=== PATIENT | male | born 1950 | race Caucasian/White ===

== ENCOUNTER 2018-03-21 02:49 | Inpatient (IN) | payer MEDICARE ==
[~2018-03-21] VITALS: Ht 185.4 cm; Wt 138.4 kg
[2018-03-21] MEDS ORDERED: HYDR453.3 TP (03:11)
[2018-03-21] MEDS ORDERED: MICO45CR3 TP (03:11)
[2018-03-21] MEDS ORDERED: DIVA-53 PO (03:11)
[2018-03-21] MEDS ORDERED: LACT10SO PO (03:11)
[2018-03-21] MEDS ORDERED: ASPI-630 PO (03:11)
[2018-03-21] MEDS ORDERED: MAGN400T3 PO (03:11)
[2018-03-21] MEDS ORDERED: ESCITALOPRAM OX20 MG PO (03:11)
[2018-03-21] MEDS ORDERED: TRAZ-85 PO ×3 (03:11→03:26)
[2018-03-21] MEDS ORDERED: TEST200V3 IM (03:11)
[2018-03-21] MEDS ORDERED: ASCO500T3 PO (03:11)
[2018-03-21] MEDS ORDERED: FERR325T14 PO (03:11)
[2018-03-21] MEDS ORDERED: MULT1TAB52 PO (03:11)
[2018-03-21] MEDS ORDERED: FLUT16SP21 NS (03:11)
[2018-03-21] MEDS ORDERED: DOCU100C28 PO (03:11)
[2018-03-21] MEDS ORDERED: IBUP400T18 PO (03:11)
[2018-03-21] MEDS ORDERED: LINA145C PO (03:26)
[2018-03-21] MEDS ORDERED: INUL1TAB4 PO (03:26)
[2018-03-21] MEDS ORDERED: CARB1TAB2 PO ×2 (03:26)
[2018-03-21] MEDS ORDERED: CARB1TAB44 PO (03:26)
[2018-03-21] MEDS ORDERED: TEST100V2 IM (03:26)
[2018-03-21] MEDS ORDERED: PRAM0.255 PO (03:26)
[2018-03-21] MEDS ORDERED: DIAZ2TAB3 PO (03:26)
[2018-03-21] MEDS ORDERED: PRAV40TA2 PO (03:26)
[2018-03-21] MEDS ORDERED: CEPH-264 PO (03:26)
[2018-03-21 03:45] VITALS: BP 149/93
[2018-03-21 04:00] VITALS: BP 149/93
[2018-03-21] MEDS ORDERED: MAGNESIUM HYDROXIDE 2,400 MG/30 ML ORAL.SUSP. PO PRN (04:15)
[2018-03-21] MEDS ORDERED: DOCUSATE SODIUM 100 MG CAPSULE PO PRN (04:15)
[2018-03-21] MEDS ORDERED: NON FORMULARY ITEM (Trazodone Hcl 25 MG) PO PRN (04:15)
[2018-03-21] MEDS ORDERED: METHYL SALICYLATE/MENTHOL TOPICAL OINTMENT 29GM TUBE. TP PRN (04:15)
[2018-03-21] MEDS ORDERED: IBUPROFEN 400 MG TABLET. PO PRN (04:15)
[2018-03-21] MEDS ORDERED: CARBIDOPA/LEVODOPA 25/100MG TABLET PO PRN (04:15)
[2018-03-21] MEDS ORDERED: MICONAZOLE NITRATE 2% TOPICAL CREAM 28GM TUBE. TP PRN (04:15)
[2018-03-21] MEDS ORDERED: OLANZapine 2.5 MG TABLET PO PRN (04:15)
[2018-03-21] MEDS ORDERED: MAG HYDROX/AL HYDROX/SIMETH 30 ML ORAL.SUSP PO PRN (04:15)
[2018-03-21] MEDS ORDERED: Influenza vaccine per PROTOCOL. MC PRN (04:30)
[2018-03-21 05:55] VITALS: BP 149/93
[2018-03-21] MEDS: CARBIDOPA/LEVODOPA 25/100MG TABLET PO SCH ×9 (06:06→22:00)
[2018-03-21 06:23] LABS: BASO % 1 % (0-3); EOS # 0.3 x10^3/uL (0.0-0.7); EOS % 3 % (0-3); HEMATOCRIT 39.5 % (39.0-53.0); HEMOGLOBIN 13.4 g/dL (13.0-17.5); LYMPH # 1.3 x10^3/uL (1.0-4.8); LYMPH % 16 % (24-48); MEAN CORPUSCULAR HEMOGLOBIN 30 pg (25-35); MEAN CORPUSCULAR HGB CONC 34 g/dL (31-37); MEAN CORPUSCULAR VOLUME 90 fL (79-100); MONO # 0.8 x10^3/uL (0.0-1.1); MONO % 9 % (0-9); NEUT # 6.1 x10^3uL (1.8-7.7); NEUT % 72 % (31-73); PLATELET COUNT 169 x10^3/uL (140-400); RED BLOOD COUNT 4.41 x10^6/uL (4.30-5.70); RED CELL DISTRIBUTION WIDTH 14.2 % (11.5-14.5); WHITE BLOOD COUNT 8.5 x10^3/uL (4.0-11.0)
[2018-03-21 06:27] LABS: ALBUMIN 3.2 g/dL (3.4-5.0); CALCIUM 9.3 mg/dL (8.5-10.1); CREATININE 0.8 mg/dL (0.7-1.3); GFR 96.7; TOTAL PROTEIN 6.4 g/dL (6.4-8.2)
[2018-03-21] MEDS ORDERED: HYDROCORTISONE 1% TOPICAL CREAM 30GM TUBE. TP PRN (07:45)
[2018-03-21] MEDS ORDERED: INULIN PO SCH (08:00)
[2018-03-21] MEDS ORDERED: CHROMIUM PICOLINATE PO SCH (08:00)
[2018-03-21] MEDS ORDERED: FERROUS SULFATE 325 MG TABLET. PO SCH (09:00)
[2018-03-21] MEDS: PRAVASTATIN 20 MG TABLET. PO SCH (12:12)
[2018-03-21] MEDS: CITALOPRAM 20 MG TABLET. PO SCH (12:14)
[2018-03-21] MEDS: ASCORBIC ACID 500 MG TABLET PO SCH (12:14)
[2018-03-21] MEDS: ASPIRIN 81 MG TAB.CHEW PO SCH (12:14)
[2018-03-21] MEDS: MAGNESIUM OXIDE 400 MG TABLET PO SCH ×2 (12:14→20:13)
[2018-03-21] MEDS: MULTIVITAMIN with MINERAL TABLET. PO SCH (12:14)
[2018-03-21] MEDS: LACTULOSE 20 GM/30 ML SOLUTION. PO SCH (12:15)
[2018-03-21] MEDS: LINACLOTIDE 145 MCG CAPSULE. PO SCH (12:15)
[2018-03-21] MEDS: FLUTICASONE 50MCG/NASAL SPRAY 16GM BOTTLE. NS SCH (12:15)
[2018-03-21] MEDS: DICLOFENAC SODIUM 1% TOPICAL GEL 100GM TUBE. TP SCH ×2 (12:18→20:24)
[2018-03-21 13:00] LABS: THYROID STIM HORMONE (TSH) 2.365 uIU/mL (0.358-3.740)
[2018-03-21 15:42] VITALS: BP 153/72
[2018-03-21] MEDS: traZODone 50 MG TABLET. PO SCH ×2 (17:00→20:11)
--- NOTE | 2018-03-21 18:05 | RAD ---
CT scan of the head without contrast 03/21/2018 Clinical History: Fall earlier today. Head injury. Technique: Unenhanced, contiguous, 5 mm axial sections were obtained through the head. Findings: No previous imaging studies are available for comparison. Bifrontal deep brain stimulator leads extend to the basal ganglia regions bilaterally. There is generalized parenchymal atrophy. Areas of decreased attenuation are seen within the periventricular and subcortical white matter of both cerebral hemispheres consistent with areas of small vessel ischemic disease. No acute parenchymal abnormality is seen. No extra-axial fluid collection is noted. No skull fracture is seen. Impression: No acute intracranial abnormality is seen. Electronically signed by: Brayan Bowens MD (03/21/2018 6:01 PM) [facility]
--- NOTE | 2018-03-21 18:06 | RAD ---
AP pelvis radiograph to include AP and lateral radiographs of the right hip 03/21/2018 CLINICAL HISTORY: Fall with right hip pain. An AP digital radiograph of the pelvis to include both hips was obtained. AP and lateral digital radiographs of the right hip were obtained. No pelvic bone fracture is seen. Both hips are intact. Moderate degenerative changes are seen involving the lower lumbar spine. Moderate degenerative changes are seen involving both hips. IMPRESSION: No fracture or dislocation is seen. Electronically signed by: Brayan Bowens MD (03/21/2018 6:03 PM) [facility]
[2018-03-21] MEDS: DOCUSATE SODIUM 100 MG CAPSULE PO SCH (20:11)
[2018-03-21] MEDS: QUEtiapine 25 MG TABLET. PO SCH (20:13)
[2018-03-21] MEDS: PRAMIPEXOLE 0.5 MG TABLET. PO SCH (20:13)
[2018-03-21] MEDS: CARBIDOPA/LEVODOPA CR 50/200MG TABLET.SA PO SCH (20:18)
--- NOTE | 2018-03-21 20:51 | PDOC ---
Exam Note: Сергей Note: Please also refer to the separate dictated note~for this date of service dictated separately.~Patient seen individually. Discussed the patient with Nursing staff reviewed the chart.~Reviewed interim history and current functioning. Reviewed vital signs,~Labs/ Radiology~and current medications noted below. Continue current treatment with the changes noted in the dictated addendum note Assessment: Vital Signs: Vital Signs Date Time Temp Pulse Resp B/P (MAP) Pulse Ox O2 Delivery O2 Flow Rate FiO2 03/21/18 15:42 98.4 64 20 153/72 (99) 97 I&O Intake and Output 03/21/18 07:00 Intake Total 120 ml Balance 120 ml Intake Oral 120 ml Labs: Laboratory Tests Test 03/21/18 06:04 White Blood Count 8.5 x10^3/uL (4.0-11.0) Red Blood Count 4.41 x10^6/uL (4.30-5.70) Hemoglobin 13.4 g/dL (13.0-17.5) Hematocrit 39.5 % (39.0-53.0) Mean Corpuscular Volume 90 fL (79-100) Mean Corpuscular Hemoglobin 30 pg (25-35) Mean Corpuscular Hemoglobin Concent 34 g/dL (31-37) Red Cell Distribution Width 14.2 % (11.5-14.5) Platelet Count 169 x10^3/uL (140-400) Neutrophils (%) (Auto) 72 % (31-73) Lymphocytes (%) (Auto) 16 % (24-48) L Monocytes (%) (Auto) 9 % (0-9) Eosinophils (%) (Auto) 3 % (0-3) Basophils (%) (Auto) 1 % (0-3) Neutrophils # (Auto) 6.1 x10^3uL (1.8-7.7) Lymphocytes # (Auto) 1.3 x10^3/uL (1.0-4.8) Monocytes # (Auto) 0.8 x10^3/uL (0.0-1.1) Eosinophils # (Auto) 0.3 x10^3/uL (0.0-0.7) Basophils # (Auto) 0.0 x10^3/uL (0.0-0.2) Sodium Level 140 mmol/L (136-145) Potassium Level 4.0 mmol/L (3.5-5.1) Chloride Level 101 mmol/L (98-107) Carbon Dioxide Level 37 mmol/L (21-32) H Anion Gap 2 (6-14) L Blood Urea Nitrogen 14 mg/dL (8-26) Creatinine 0.8 mg/dL (0.7-1.3) Estimated GFR (Cockcroft-Gault) 96.7 BUN/Creatinine Ratio 18 (6-20) Glucose Level 93 mg/dL (70-99) Calcium Level 9.3 mg/dL (8.5-10.1) Iron Level 53 ug/dL (65-175) L Total Iron Binding Capacity 248 ug/dL (250-450) L Iron Saturation 21 % (15-34) Total Bilirubin 1.0 mg/dL (0.2-1.0) Aspartate Amino Transferase (AST) 14 U/L (15-37) L Alanine Aminotransferase (ALT) 14 U/L (16-63) L Alkaline Phosphatase 65 U/L (46-116) Total Protein 6.4 g/dL (6.4-8.2) Albumin 3.2 g/dL (3.4-5.0) L Albumin/Globulin Ratio 1.0 (1.0-1.7) Triglycerides Level 78 mg/dL (0-150) Cholesterol Level 125 mg/dL (0-200) LDL Cholesterol, Calculated 68 mg/dL (0-100) VLDL Cholesterol, Calculated 15 mg/dL (0-40) Non-HDL Cholesterol Calculated 83 mg/dL (0-129) HDL Cholesterol 42 mg/dL (40-60) Cholesterol/HDL Ratio 2.0 Vitamin B12 Level 380 pg/mL (247-911) 25-Hydroxy Vitamin D Total 23.8 ng/mL (30-100) L Thyroid Stimulating Hormone (TSH) 2.365 uIU/mL (0.358-3.740) Treponema pallidum Antibody Nonreactive (Nonreactive) Current Medications: Meds: Current Medications Influenza Virus Vaccine (Afluria Trivalent [id number] Syringe) 0.5 ml ONCE ONCE VAX IM Last administered on 03/21/18at 13:58; Start 03/21/18 at 09:00; Stop 03/21/18 at 09:01; Status DC Acetaminophen (Tylenol) 650 mg PRN Q6HRS PRN PO PAIN / TEMP; Start 03/21/18 at 04:15 Multi-Ingredient Ointment (Analgesic [place]) 1 juan PRN QID PRN TP MUSCLE PAIN; Start 03/21/18 at 04:15 Al Hydroxide/Mg Hydroxide (Mylanta Plus Xs) 15 ml PRN AFTMEALHC PRN PO DYSPEPSIA; Start 03/21/18 at 04:15 Magnesium Hydroxide (Milk Of Magnesia) 2,400 mg PRN QHS PRN PO CONSTIPATION; Start 03/21/18 at 04:15 Info (FLU VACCINE per PROTOCOL) 1 ea PRN 1X PRN MC PER PROTOCOL; Start at 04:30; Status Cancel Ascorbic Acid (Vitamin C) 500 mg DAILY PO Last administered on 03/21/18at 12:14 ; Start 03/21/18 at 09:00 Carbidopa/Levodopa (Sinemet 25/100) 0.5 tab PRN BID PRN PO Tremors; Start 03/21 at 04:15; Status Cancel Carbidopa/Levodopa (Sinemet 25/100) 0.5 tab Q2HR W/A PO Last administered on 03/21/18at 20:12; Start 03/21/18 at 06:00 Ferrous Sulfate (Feosol) 650 mg DAILY PO ; Start 03/21/18 at 09:00; Stop at 11:35; Status DC Ibuprofen (Motrin) 600 mg PRN BID PRN PO PAIN; Start 03/21/18 at 04:15; Stop 03/21/18 at 11:44; Status DC Linaclotide (Linzess) 145 mcg DAILY PO Last administered on 03/21/18at 12:15; Start 03/21/18 at 09:00 Aspirin (Children'S Aspirin) 81 mg DAILYWBKFT PO Last administered on at 12:14; Start 03/21/18 at 08:00 Carbidopa/Levodopa (Sinemet Cr) 1 tab.sa HS PO Last administered on 03/21/18at 20:18; Start 03/21/18 at 21:00 Diazepam (Valium) 2 mg PRN Q6HRS PRN PO ANXIETY / AGITATION; Start 03/21/18 at 04:15 Divalproex Sodium (Depakote Er) 500 mg QHS PO ; Start 03/22/18 at 21:00 Docusate Sodium (Colace) 200 mg PRN DAILY PRN PO CONSTIPATION; Start 03/21/18 at 04:15; Stop 03/21/18 at 11:34; Status DC Citalopram Hydrobromide (CeleXA) 40 mg DAILY PO Last administered on 03/21/18at 12:14; Start 03/21/18 at 09:00 Fluticasone Propionate (Flonase) 2 spray DAILY NS Last administered on at 12:15; Start 03/21/18 at 09:00 Hydrocortisone (Cortaid) 1 juan PRN BID PRN TP ITCH/RASH; Start 03/21/18 at 07: 45 Non-Formulary Medication (Inulin/Chromium Picolinate (Fiber Gummies)) 2 ea TIDWMEALS PO ; Start 03/21/18 at 08:00; Status UNV Lactulose (Lactulose) 15 gm DAILYWBKFT PO Last administered on 03/21/18at 12:15 ; Start 03/21/18 at 08:00 Magnesium Oxide (Magnesium Oxide) 400 mg BID PO Last administered on 03/21/18at 20:13; Start 03/21/18 at 09:00 Miconazole Nitrate (Monistat-Derm) 1 juan PRN BID PRN TP RASH; Start 03/21/18 at 04:15 Multivitamins/ Calcium (Thera-M Plus) 1 tab DAILY PO Last administered on at 12:14; Start 03/21/18 at 09:00 Pramipexole Dihydrochloride (miraPEX) 0.5 mg QHS PO Last administered on at 20:13; Start 03/21/18 at 21:00 Pravastatin Sodium (Pravachol) 40 mg DAILY PO Last administered on 03/21/18at 12 :12; Start 03/21/18 at 09:00 Trazodone HCl (Desyrel) 25 mg DAILYWSUP PO ; Start 03/21/18 at 17:00 Non-Formulary Medication (Trazodone Hcl ) 25 mg PRN DAILY PRN PO AGITATION; Start 03/21/18 at 04:15; Status UNV Trazodone HCl (Desyrel) 75 mg QHS PO Last administered on 03/21/18at 20:11; Start 03/21/18 at 21:00 Divalproex Sodium (Depakote Sprinkles) 250 mg HS PO ; Start 03/21/18 at 21:00; Status UNV Divalproex Sodium (Depakote Sprinkles) 250 mg HS PO ; Start 03/21/18 at 21:00; Status UNV Olanzapine (ZyPREXA) 2.5 mg PRN Q2HR PRN PO ANXIETY / AGITATION; Start at 04:15; Status Cancel Olanzapine (ZyPREXA ZYDIS) 5 mg PRN Q2HR PRN PO PSYCHOSIS; Start 03/21/18 at 04 :15 Quetiapine Fumarate (SEROquel) 25 mg QHS PO Last administered on 03/21/18at 20: 13; Start 03/21/18 at 21:00 Docusate Sodium (Colace) 100 mg BID PO Last administered on 03/21/18at 20:11; Start 03/21/18 at 21:00 Ferrous Sulfate (Feosol) 650 mg DAILY06 PO ; Start 03/22/18 at 06:00 Ibuprofen (Motrin) 600 mg PRN BID PRN PO INFLAMMATION; Start 03/21/18 at 11:45 Metformin HCl (Glucophage Xr) 1,000 mg DAILYWBKFT PO ; Start 03/22/18 at 12:00 Diclofenac Sodium (Voltaren) 1 juan TID TP Last administered on 03/21/18at 20:24 ; Start 03/21/18 at 14:00 Active Scripts Active Reported Keflex (Cephalexin) 500 Mg Capsule 500 Mg PO QID 10 Days Pravastatin Sodium 40 Mg Tablet 40 Mg PO DAILY Carbidopa-Levo Er 50-200 Tab (Carbidopa/Levodopa) 1 Each Tablet.er 1 Each PO HS Sinemet 25-100 Mg Tablet (Carbidopa/Levodopa) 1 Each Tablet 0.5 Tab PO PRN BID PRN Sinemet 25-100 Mg Tablet (Carbidopa/Levodopa) 1 Each Tablet 0.5 Tab PO Q2HR W/A Diazepam 2 Mg Tablet 2 Mg PO PRN Q6HRS PRN Fiber Gummies (Inulin/Chromium Picolinate) 1 Each Tab.chew 2 Ea PO TIDWMEALS Mirapex (Pramipexole Di-Hcl) 0.25 Mg Tablet 0.5 Mg PO HS Linzess (Linaclotide) 145 Mcg Capsule 145 Mcg PO DAILY Trazodone Hcl 50 Mg Tablet 75 Mg PO HS PRN Testosterone Cypionate 100 Mg/1 Ml Vial 150 Mg IM Q10 DAYS Divalproex Sodium 500 Mg Tablet.dr 500 Mg PO HS Hydrocortisone 453.6 Gm Cream..g. 1 Juan TP PRN BID PRN Ferrous Sulfate 325 Mg Tablet 650 Mg PO DAILY Magnesium Oxide 400 Mg Tablet 400 Mg PO BID Miconazole Nitrate 45 Gm Cream.appl 1 Juan TP PRN BID PRN Aspirin 81 Mg Tab.chew 81 Mg PO DAILY Ibuprofen 400 Mg Tablet 600 Mg PO PRN BID PRN Docusate Sodium 100 Mg Capsule 200 Mg PO PRN DAILY PRN Escitalopram Oxalate 20 Mg Tablet 20 Mg PO DAILY Fluticasone Propionate Nasal [place] (Fluticasone Propionate) 16 Gm [place].susp 2 [place] NS DAILY Multivitamins (Multivitamin) 1 Each Tablet 1 Tab PO DAILY Trazodone Hcl 50 Mg Tablet 25 Mg PO DAILYWSUP Trazodone Hcl 50 Mg Tablet 25 Mg PO PRN DAILY PRN Ascorbic Acid 500 Mg Tablet 500 Mg PO DAILY Lactulose 10 Gm/15 Ml Solution 15 Ml PO DAILYWBKFT I have reviewed the current psychotropics carefully including drug interactions. Risk benefit ratio favors no change other than as noted in my dictated progress note. Diagnosis: Problems: (1) Anxiety disorder (2) Lewy body dementia with behavioral disturbance (3) Impulse control disorder (4) Personality disorder in adult SAY PRUETT MD Mar 21, 2018 20:51
[2018-03-21] MEDS ORDERED: DIVALPROEX 125 MG CAP.SPRINK PO SCH ×2 (21:00)
[2018-03-21 23:13] LABS: THYROXINE 6.3 ug/dL (4.5-12.0)
[2018-03-22 00:09] LABS: HEMOGLOBIN A1C 5.3 % (4.8-5.6)
[2018-03-22] MEDS: IBUPROFEN 600 MG TABLET. PO PRN (02:26)
[2018-03-22] MEDS: diazePAM 2 MG TABLET PO PRN ×3 (02:26→23:22)
[2018-03-22 05:46] VITALS: BP 152/77
[2018-03-22] MEDS: CARBIDOPA/LEVODOPA 25/100MG TABLET PO SCH ×8 (06:12→22:00)
[2018-03-22] MEDS: FERROUS SULFATE 325 MG TABLET. PO SCH (06:12)
[2018-03-22] MEDS: ASCORBIC ACID 500 MG TABLET PO SCH (07:58)
[2018-03-22] MEDS: LACTULOSE 20 GM/30 ML SOLUTION. PO SCH (07:58)
[2018-03-22] MEDS: PRAVASTATIN 20 MG TABLET. PO SCH (07:58)
[2018-03-22] MEDS: MULTIVITAMIN with MINERAL TABLET. PO SCH (07:58)
[2018-03-22] MEDS: DOCUSATE SODIUM 100 MG CAPSULE PO SCH ×2 (07:58→20:24)
[2018-03-22] MEDS: CITALOPRAM 20 MG TABLET. PO SCH (07:58)
[2018-03-22] MEDS: ASPIRIN 81 MG TAB.CHEW PO SCH (07:58)
[2018-03-22] MEDS: MAGNESIUM OXIDE 400 MG TABLET PO SCH ×2 (07:59→20:24)
[2018-03-22] MEDS: LINACLOTIDE 145 MCG CAPSULE. PO SCH (08:01)
[2018-03-22] MEDS: DICLOFENAC SODIUM 1% TOPICAL GEL 100GM TUBE. TP SCH (08:01)
[2018-03-22] MEDS: FLUTICASONE 50MCG/NASAL SPRAY 16GM BOTTLE. NS SCH ×2 (08:01→09:00)
[2018-03-22 11:57] LABS: AMORPHOUS SEDIMENT,UR PRESENT /HPF; BACTERIA,URINE 0 /HPF (0-FEW); BILIRUBIN,URINE NEG (NEG); CLARITY,URINE CLEAR; COLOR,URINE AMBER; GLUCOSE,URINE NEG (NEG); NITRITE,URINE NEG (NEG); RBC,URINE RARE /HPF (0-2); SQUAMOUS EPITHELIAL CELL,UR OCC /LPF; UROBILINOGEN,URINE 1 mg/dL (0.2 mg/dL); WBC,URINE OCC /HPF (0-4)
[2018-03-22] MEDS ORDERED: DICLOFENAC SODIUM 1% TOPICAL GEL 100GM TUBE. TP PRN (13:00)
[2018-03-22] MEDS: metFORMIN XR 500 MG TAB.ER.24H PO SCH (13:09)
--- NOTE | 2018-03-22 14:13 | EKG ---
[address] [address] Test Date: 2018-03-22 Test Time: 13:59:33 Pat Name: QUINTIN KINGSLEY Department: Room: [facility] 1 Gender: M Rough Carpenter: : 1950 Requested By: JOHN MOY Order Number: [id number] Reading MD: Navid Munoz MD Measurements Intervals [place] Rate: 56 P: 39 [place]: 242 QRS: -22 QRSD: 126 T: 14 QT: 432 QTc: 419 Interpretive Statements SINUS RHYTHM PROLONGED [place] INTERVAL LEFTWARD AXIS NON SPECIFIC INTRAVENTRICULAR BLOCK QRS(T) CONTOUR ABNORMALITY CONSISTENT WITH ANTEROSEPTAL INFARCT Electronically Signed On 03-25-2018 11:09:42 CDT by Navid Munoz MD
--- NOTE | 2018-03-22 15:16 | HP ---
ADMIT DATE: 03/21/2018 PSYCHIATRIC ADMISSION HISTORY/EVALUATION This late entry, date of service, 03/21/2018, covers elements not covered in my initial note. IDENTIFYING DATA: The patient is a 67-year-old male referred to us from the [facility] Emergency Room where he presented from home on account of erratic, impulsive behaviors. He has been extremely inappropriate with the home health staff and previously had been discharged from [facility] in another facility because of similar behaviors. He does have a history of dementia, Lewy body type and has been intermittently psychotic, more confused. Behaviors have been deemed unmanageable, dangerous, referred for inpatient psychiatric stabilization from the Emergency Room. The patient was seen individually evening of 03/21/2018. Discussed with nursing staff on several occasions including prior to the patient's admission including the midnight of 03/20/2018 and 03/21/2018. CHIEF COMPLAINT: "I don't do those things." HISTORY OF PRESENT ILLNESS: The patient has a history of dementia, Lewy body type. He has been previously at various nursing facilities. Would get quite disruptive, labile, psychotic, unmanageable, dangerous, and asked to leave the facility. Last, he was living at home with home health services and they have refused to come back as well due to similar behaviors by the patient prompting referral to the [facility] Emergency Room and then to us. He has been sexually inappropriate with staff members and otherwise physically aggressive towards his and verbally as well. No clear symptoms of bipolar disorder. No active suicidal or homicidal ideation. He has had some increasing short-term memory deficits, but despite this remains reasonably oriented. PAST PSYCHIATRIC HISTORY: As above. PAST MEDICAL HISTORY: The patient has a history of Parkinson's disease, hyperlipidemia. DRUG ALLERGIES: Negative. DIET: Regular. ACCU-CHEKS: None. Takes meds whole. Ambulates with assistance. CURRENT PSYCHOTROPICS: Trazodone 75 mg at bedtime, Lexapro 20 mg a day, Depakote 500 at bedtime, Valium p.r.n. q.6 hours 2 mg, trazodone 25 mg at 1700, 25 mg daily p.r.n. FAMILY HISTORY: Noncontributory. SOCIAL HISTORY: No alcohol or drug abuse, physical, sexual or elder abuse history is noted, but he has had the sexually inappropriate behaviors, questionable perpetration. REVIEW OF SYSTEMS: Ambulation impaired, in wheelchair. No CV, , pulmonary, eye system symptoms on review. He has had a fall since he has been on our unit and did go down for a CT head per Dr. Rahman. REACTION TO HOSPITALIZATION: The patient reluctantly accepting of it. ASSETS: Supportive family. MENTAL STATUS EXAMINATION: The patient was seen individually evening of 03/21/2018. He is oriented to himself and situation. Speech coherent, rapid at times. Abstraction fair. Computation, unable to do serial 7's, able to spell world forward. No active suicidal or homicidal ideation. Mood remains quite labile. Affect is mood congruent. Attention span short. Language function intact. Intellect average. Insight poor. Judgment marginal. LABORATORY DATA: Reviewed. IMPRESSION: Major neurocognitive disorder, Lewy body with delusion, depression, behavioral disturbance; anxiety disorder, unspecified; impulse control disorder, unspecified. Rest as above. PLAN: Admit to Geropsychiatry Unit at [facility]. I will see the patient daily individually from a psychiatric standpoint. Medical followup with Dr. Rahman/Dr. Suarez. Continue current psychotropics, observe baseline, then adjust further as clinically indicated. MAN Rosa PRUETT MD DR: MARCEL/nano JOB#: [id number] / [id number]
[2018-03-22 16:17] VITALS: BP 123/74
[2018-03-22] MEDS: CHOLECALCIFEROL (VITAMIN D3) 50,000 UNIT CAPSULE PO SCH (18:34)
[2018-03-22] MEDS: traZODone 50 MG TABLET. PO SCH ×2 (18:34→20:24)
--- NOTE | 2018-03-22 20:16 | PDOC ---
Exam Note: Сергей Note: Please also refer to the separate dictated note~for this date of service dictated separately.~Patient seen individually. Discussed the patient with Nursing staff reviewed the chart.~Reviewed interim history and current functioning. Reviewed vital signs,~Labs/ Radiology~and current medications noted below. Continue current treatment with the changes noted in the dictated addendum note Assessment: Vital Signs: Vital Signs Date Time Temp Pulse Resp B/P (MAP) Pulse Ox O2 Delivery O2 Flow Rate FiO2 03/22/18 16:17 98.3 90 22 123/74 (90) 95 Room Air I&O Intake and Output 03/22/18 07:00 Intake Total 1040 ml Balance 1040 ml Intake Oral 1040 ml # Voids 4 Labs: Laboratory Tests Test 03/22/18 11:15 Urine Collection Type Unknown Urine Color Rula Urine Clarity Clear Urine pH 7.0 Urine Specific [place] 1.020 Urine Protein Neg (NEG-TRACE) Urine Glucose (UA) Neg mg/dL (NEG) Urine Ketones (Stick) Neg mg/dL (NEG) Urine Blood Neg (NEG) Urine Nitrite Neg (NEG) Urine Bilirubin Neg (NEG) Urine Urobilinogen Dipstick 1 mg/dL (0.2 mg/dL) Urine Leukocyte Esterase Neg (NEG) Urine RBC Rare /HPF (0-2) Urine WBC Occ /HPF (0-4) Urine Squamous Epithelial Cells Occ /LPF Urine Amorphous Sediment Present /HPF Urine Bacteria 0 /HPF (0-FEW) Urine Mucus Slight /LPF Current Medications: Meds: Current Medications Influenza Virus Vaccine (Afluria Trivalent [id number] Syringe) 0.5 ml ONCE ONCE VAX IM Last administered on 03/21/18at 13:58; Start 03/21/18 at 09:00; Stop 03/21/18 at 09:01; Status DC Acetaminophen (Tylenol) 650 mg PRN Q6HRS PRN PO PAIN / TEMP; Start 03/21/18 at 04:15 Multi-Ingredient Ointment (Analgesic [place]) 1 juan PRN QID PRN TP MUSCLE PAIN; Start 03/21/18 at 04:15 Al Hydroxide/Mg Hydroxide (Mylanta Plus Xs) 15 ml PRN AFTMEALHC PRN PO DYSPEPSIA; Start 03/21/18 at 04:15 Magnesium Hydroxide (Milk Of Magnesia) 2,400 mg PRN QHS PRN PO CONSTIPATION; Start 03/21/18 at 04:15 Info (FLU VACCINE per PROTOCOL) 1 ea PRN 1X PRN MC PER PROTOCOL; Start at 04:30; Status Cancel Ascorbic Acid (Vitamin C) 500 mg DAILY PO Last administered on 03/22/18at 07:58 ; Start 03/21/18 at 09:00 Carbidopa/Levodopa (Sinemet 25/100) 0.5 tab PRN BID PRN PO Tremors; Start 03/21 at 04:15; Status Cancel Carbidopa/Levodopa (Sinemet 25/100) 0.5 tab Q2HR W/A PO Last administered on 03/22/18at 18:00; Start 03/21/18 at 06:00 Ferrous Sulfate (Feosol) 650 mg DAILY PO ; Start 03/21/18 at 09:00; Stop at 11:35; Status DC Ibuprofen (Motrin) 600 mg PRN BID PRN PO PAIN; Start 03/21/18 at 04:15; Stop 03/21/18 at 11:44; Status DC Linaclotide (Linzess) 145 mcg DAILY PO Last administered on 03/22/18at 08:01; Start 03/21/18 at 09:00 Aspirin (Children'S Aspirin) 81 mg DAILYWBKFT PO Last administered on at 07:58; Start 03/21/18 at 08:00 Carbidopa/Levodopa (Sinemet Cr) 1 tab.sa HS PO Last administered on 03/21/18at 20:18; Start 03/21/18 at 21:00 Diazepam (Valium) 2 mg PRN Q6HRS PRN PO ANXIETY / AGITATION Last administered on 03/22/18at 13:20; Start 03/21/18 at 04:15 Divalproex Sodium (Depakote Er) 500 mg QHS PO ; Start 03/22/18 at 21:00 Docusate Sodium (Colace) 200 mg PRN DAILY PRN PO CONSTIPATION; Start 03/21/18 at 04:15; Stop 03/21/18 at 11:34; Status DC Citalopram Hydrobromide (CeleXA) 40 mg DAILY PO Last administered on 03/22/18at 07:58; Start 03/21/18 at 09:00 Fluticasone Propionate (Flonase) 2 spray DAILY NS Last administered on at 12:15; Start 03/21/18 at 09:00 Hydrocortisone (Cortaid) 1 juan PRN BID PRN TP ITCH/RASH; Start 03/21/18 at 07: 45 Non-Formulary Medication (Inulin/Chromium Picolinate (Fiber Gummies)) 2 ea TIDWMEALS PO ; Start 03/21/18 at 08:00; Status UNV Lactulose (Lactulose) 15 gm DAILYWBKFT PO Last administered on 03/22/18at 07:58 ; Start 03/21/18 at 08:00 Magnesium Oxide (Magnesium Oxide) 400 mg BID PO Last administered on 03/22/18at 07:59; Start 03/21/18 at 09:00 Miconazole Nitrate (Monistat-Derm) 1 juan PRN BID PRN TP RASH; Start 03/21/18 at 04:15 Multivitamins/ Calcium (Thera-M Plus) 1 tab DAILY PO Last administered on at 07:58; Start 03/21/18 at 09:00 Pramipexole Dihydrochloride (miraPEX) 0.5 mg QHS PO Last administered on at 20:13; Start 03/21/18 at 21:00 Pravastatin Sodium (Pravachol) 40 mg DAILY PO Last administered on 03/22/18at 07 :58; Start 03/21/18 at 09:00 Trazodone HCl (Desyrel) 25 mg DAILYWSUP PO Last administered on 03/22/18at 18:34 ; Start 03/21/18 at 17:00 Non-Formulary Medication (Trazodone Hcl ) 25 mg PRN DAILY PRN PO AGITATION; Start 03/21/18 at 04:15; Status UNV Trazodone HCl (Desyrel) 75 mg QHS PO Last administered on 03/21/18at 20:11; Start 03/21/18 at 21:00 Divalproex Sodium (Depakote Sprinkles) 250 mg HS PO ; Start 03/21/18 at 21:00; Status UNV Divalproex Sodium (Depakote Sprinkles) 250 mg HS PO ; Start 03/21/18 at 21:00; Status UNV Olanzapine (ZyPREXA) 2.5 mg PRN Q2HR PRN PO ANXIETY / AGITATION; Start at 04:15; Status Cancel Olanzapine (ZyPREXA ZYDIS) 5 mg PRN Q2HR PRN PO PSYCHOSIS; Start 03/21/18 at 04 :15 Quetiapine Fumarate (SEROquel) 25 mg QHS PO Last administered on 03/21/18at 20: 13; Start 03/21/18 at 21:00 Docusate Sodium (Colace) 100 mg BID PO Last administered on 03/22/18at 07:58; Start 03/21/18 at 21:00 Ferrous Sulfate (Feosol) 650 mg DAILY06 PO Last administered on 03/22/18at 06:12 ; Start 03/22/18 at 06:00 Ibuprofen (Motrin) 600 mg PRN BID PRN PO INFLAMMATION Last administered on 03/22at 02:26; Start 03/21/18 at 11:45 Metformin HCl (Glucophage Xr) 1,000 mg DAILYWBKFT PO Last administered on at 13:09; Start 03/22/18 at 12:00 Diclofenac Sodium (Voltaren) 1 juan TID TP Last administered on 03/22/18at 08:01 ; Start 03/21/18 at 14:00; Stop 03/22/18 at 13:01; Status DC Diclofenac Sodium (Voltaren) 1 juan PRN TID PRN TP PAIN; Start 03/22/18 at 13:00 Vitamin D (Vitamin D3) 50,000 unit WEEKLY PO Last administered on 03/22/18at 18: 34; Start 03/22/18 at 13:45 Active Scripts Active Reported Keflex (Cephalexin) 500 Mg Capsule 500 Mg PO QID 10 Days Pravastatin Sodium 40 Mg Tablet 40 Mg PO DAILY Carbidopa-Levo Er 50-200 Tab (Carbidopa/Levodopa) 1 Each Tablet.er 1 Each PO HS Sinemet 25-100 Mg Tablet (Carbidopa/Levodopa) 1 Each Tablet 0.5 Tab PO PRN BID PRN Sinemet 25-100 Mg Tablet (Carbidopa/Levodopa) 1 Each Tablet 0.5 Tab PO Q2HR W/A Diazepam 2 Mg Tablet 2 Mg PO PRN Q6HRS PRN Fiber Gummies (Inulin/Chromium Picolinate) 1 Each Tab.chew 2 Ea PO TIDWMEALS Mirapex (Pramipexole Di-Hcl) 0.25 Mg Tablet 0.5 Mg PO HS Linzess (Linaclotide) 145 Mcg Capsule 145 Mcg PO DAILY Trazodone Hcl 50 Mg Tablet 75 Mg PO HS PRN Testosterone Cypionate 100 Mg/1 Ml Vial 150 Mg IM Q10 DAYS Divalproex Sodium 500 Mg Tablet.dr 500 Mg PO HS Hydrocortisone 453.6 Gm Cream..g. 1 Juan TP PRN BID PRN Ferrous Sulfate 325 Mg Tablet 650 Mg PO DAILY Magnesium Oxide 400 Mg Tablet 400 Mg PO BID Miconazole Nitrate 45 Gm Cream.appl 1 Juan TP PRN BID PRN Aspirin 81 Mg Tab.chew 81 Mg PO DAILY Ibuprofen 400 Mg Tablet 600 Mg PO PRN BID PRN Docusate Sodium 100 Mg Capsule 200 Mg PO PRN DAILY PRN Escitalopram Oxalate 20 Mg Tablet 20 Mg PO DAILY Fluticasone Propionate Nasal [place] (Fluticasone Propionate) 16 Gm [place].susp 2 [place] NS DAILY Multivitamins (Multivitamin) 1 Each Tablet 1 Tab PO DAILY Trazodone Hcl 50 Mg Tablet 25 Mg PO DAILYWSUP Trazodone Hcl 50 Mg Tablet 25 Mg PO PRN DAILY PRN Ascorbic Acid 500 Mg Tablet 500 Mg PO DAILY Lactulose 10 Gm/15 Ml Solution 15 Ml PO DAILYWBKFT I have reviewed the current psychotropics carefully including drug interactions. Risk benefit ratio favors no change other than as noted in my dictated progress note. Diagnosis: Problems: (1) Anxiety disorder (2) Lewy body dementia with behavioral disturbance (3) Impulse control disorder (4) Personality disorder in adult SAY PRUETT MD Mar 22, 2018 20:16
[2018-03-22] MEDS: CARBIDOPA/LEVODOPA CR 50/200MG TABLET.SA PO SCH (20:24)
[2018-03-22] MEDS: PRAMIPEXOLE 0.5 MG TABLET. PO SCH (20:25)
[2018-03-22] MEDS: QUEtiapine 25 MG TABLET. PO SCH (20:25)
[2018-03-22] MEDS: DIVALPROEX ER 500 MG TAB.ER.24H PO SCH (20:27)
[2018-03-23 05:52] VITALS: BP 148/81
[2018-03-23] MEDS: CARBIDOPA/LEVODOPA 25/100MG TABLET PO SCH ×9 (06:00→22:00)
[2018-03-23] MEDS: FERROUS SULFATE 325 MG TABLET. PO SCH (06:00)
[2018-03-23 07:34] LABS: VAL ACID 11 mcg/mL (50-100)
[2018-03-23] MEDS: PRAVASTATIN 20 MG TABLET. PO SCH (08:11)
[2018-03-23] MEDS: MULTIVITAMIN with MINERAL TABLET. PO SCH (08:11)
[2018-03-23] MEDS: DOCUSATE SODIUM 100 MG CAPSULE PO SCH ×2 (08:11→20:29)
[2018-03-23] MEDS: LINACLOTIDE 145 MCG CAPSULE. PO SCH (08:11)
[2018-03-23] MEDS: ASPIRIN 81 MG TAB.CHEW PO SCH (08:11)
[2018-03-23] MEDS: LACTULOSE 20 GM/30 ML SOLUTION. PO SCH (08:11)
[2018-03-23] MEDS: FLUTICASONE 50MCG/NASAL SPRAY 16GM BOTTLE. NS SCH (08:12)
[2018-03-23] MEDS: CITALOPRAM 20 MG TABLET. PO SCH (08:12)
[2018-03-23] MEDS: ASCORBIC ACID 500 MG TABLET PO SCH (08:12)
[2018-03-23] MEDS: MAGNESIUM OXIDE 400 MG TABLET PO SCH ×2 (08:12→20:29)
[2018-03-23] MEDS: metFORMIN XR 500 MG TAB.ER.24H PO SCH (08:12)
[2018-03-23] MEDS: diazePAM 2 MG TABLET PO PRN ×2 (09:25→20:32)
--- NOTE | 2018-03-23 09:36 | CONS ---
DATE OF CONSULTATION: 03/22/2018 REASON FOR CONSULTATION: Medical management. HISTORY OF PRESENT ILLNESS: The patient is a 67-year-old male patient, who was admitted to the Emergency Room of [facility] on account of being fired from snf for behavior and then he went home with 24-hour care. Apparently the agency has fired him for sexually inappropriate behavior that has recently increased with aggression towards his . All this in a background of Lewy body with dementia. He is also known to have Parkinson disease. PAST MEDICAL HISTORY: Significant for Parkinson disease, Lewy body dementia and hyperlipidemia. He also has morbid obesity with obstructive sleep apnea and also chronic constipation and hypogonadism. He has also vitamin deficiency. PAST SURGICAL HISTORY: Significant for left rotator cuff tear repair, tonsillectomy. He has deep nerve stimulator placement done about a year ago at [facility]. He has also left posterior tibial tendon tear that was surgically repaired. FAMILY HISTORY: Unremarkable. SOCIAL HISTORY: He is , lives with his with 24-hour care. He does not smoke, drink alcohol or use recreational drugs. ALLERGIES: He has no known drug allergies. MEDICATIONS: He is currently on following medications: He is on cephalexin 500 mg 4 times a day for 10 days, ferrous sulfate 325 mg once a day, pravastatin sodium 40 mg at bedtime, aspirin 81 mg once a day, ibuprofen 600 mg twice a day, divalproex sodium 500 mg at bedtime, escitalopram oxalate for Lexapro 20 mg once a day, trazodone 25 mg as needed daily and 25 mg at bedtime. He is on diazepam 2 mg every 6 hours as needed, carbidopa/levodopa 25/100 mg tablet, he takes half a tablet every 2 hours while awake. He is also on carbidopa/levodopa 25/100 mg tablet, he takes half a tablet twice a day as needed. He is also on carbidopa/levodopa 50/200 extended release tablet one tablet at bedtime. He is on Mirapex 0.5 mg at bedtime, lactulose 15 mL daily with breakfast. He is on Flonase 2 sprays to each nostril once a day, magnesium oxide 400 mg p.o. b.i.d., Colace 100 mg to 200 mg once a day, linaclotide for Linzess 145 mcg daily. Testosterone cypionate 100 mg/mL, he takes 150 mg intramuscular every 10 days. He is on econazole nitrate applied topically twice a day, hydrocortisone cream applied topically twice a day, ascorbic acid 500 mg once a day, multivitamin 1 tablet once a day. He is on fiber gummies 3 times a day with meals. REVIEW OF SYSTEMS: The patient denied any complaint when I questioned him this afternoon. PHYSICAL EXAMINATION: GENERAL: When I examined him, he was sitting comfortably in the edge of the bed, in no apparent distress. He was slightly pale, but no jaundice, cyanosis, or thyromegaly. No jugular venous distension. No lower limb edema. VITAL SIGNS: His heart rate was 50, blood pressure was 152/77, temperature was 97.8, respiratory rate 22, and oxygen saturation was 94%. HEAD, EYES, EARS, NOSE AND THROAT: Showed normocephalic, atraumatic. NECK: Supple. HEART: Showed normal first and second heart sounds with no gallop, rub or murmur. CHEST: Clear to auscultation. No crepitation or rhonchi. ABDOMEN: Distended, soft, nontender. No guarding or rigidity. No organomegaly. Hernial orifice intact. Bowel sounds normal. NEUROLOGIC: He is awake, alert, responding appropriately. All his cranial nerves are intact. He moves all extremities without difficulty, he ambulates with a walker. He does have what seemed to be exophthalmos, although he does not carry a diagnosis of Graves disease or thyrotoxicosis. LABORATORY DATA: Showed a white cell count of 8500, hemoglobin 13, hematocrit 39, MCV 90 and platelet count of 169,000. His chemistry shows sodium of 140, potassium 4, chloride 101, bicarbonate 37, anion gap of 2, BUN 14, creatinine 0.8, estimated GFR was 97 mL per minute. His glucose was 93, calcium was 9.3. Total bilirubin, AST, ALT, alkaline phosphatase were normal. Total protein was 6.4, albumin 3.2. His hemoglobin A1c was 5.3%. His serum iron 53, TIBC was 148 and percent saturation was 21%. Serum triglycerides were 78. Total cholesterol 125, LDL cholesterol was 68, VLDL was 15, and HDL cholesterol was 42 and the ratio was 2. His vitamin B12 was 380 pg/mL, 25-hydroxyvitamin D was low at 23.8. TSH is normal at 2.365. Total T4 was 6.3 and total T3 was 88. His urinalysis showed the urine was za clear with a pH of 7, specific gravity of 1.020. The urine was negative for protein, glucose, ketones, blood, nitrite and leukocyte esterase. There are rare RBCs, occasional WBCs and no bacteria. His treponema pallidum antibodies are nonreactive. DIAGNOSTIC DATA: He apparently fell yesterday and has had a CT scan of the head, which basically showed that the bifrontal deep brain stimulator leads extend to the basal ganglia regions bilaterally. There is generalized parenchymal atrophy. Areas of decreased attenuation are seen within the periventricular and subcortical areas, white matter of both cerebral hemispheres consistent with area of small vessel ischemic disease. No acute parenchymal abnormality seen. No extraaxial fluid collection is noted. No skull fracture is seen. He also had an x-ray of his right hip, which basically showed that there is no pelvic bone fracture seen. Both hips are intact. Moderate degenerative changes are seen involving the lower lumbar spine. Moderate degenerative changes are seen involving both hip joints. IMPRESSION: In summary, this is a 67-year-old male patient who was admitted on account of inappropriate sexual behavior. He was fired from the snf and also from the 24-hour care team that takes care of him at home with his again because of his misbehavior and also being aggressive towards his . He has a few issues that need to be tackled. Looking at the urinalysis at [facility] and here, there is no evidence that he has any urinary tract infection and I will discontinue Keflex. He has vitamin D deficiency and apparently he has hypogonadism and his testosterone injection was not going to be helpful for his sexual aggression. Thank you, Dr. Martins, for allowing me to participate in the care of this patient. JOHN MOY MD DR: DEB/nano JOB#: [id number] / [id number]
[2018-03-23 15:47] VITALS: BP 160/90
[2018-03-23] MEDS: traZODone 50 MG TABLET. PO SCH ×2 (18:04→20:29)
[2018-03-23] MEDS: CARBIDOPA/LEVODOPA CR 50/200MG TABLET.SA PO SCH (20:28)
[2018-03-23] MEDS: DIVALPROEX ER 500 MG TAB.ER.24H PO SCH (20:29)
[2018-03-23] MEDS: QUEtiapine 25 MG TABLET. PO SCH (20:29)
[2018-03-23] MEDS: PRAMIPEXOLE 0.5 MG TABLET. PO SCH (20:29)
[2018-03-24] MEDS: FERROUS SULFATE 325 MG TABLET. PO SCH (05:57)
[2018-03-24] MEDS: CARBIDOPA/LEVODOPA 25/100MG TABLET PO SCH ×9 (05:57→22:00)
[2018-03-24 06:26] VITALS: BP 112/71
[2018-03-24] MEDS: LACTULOSE 20 GM/30 ML SOLUTION. PO SCH (08:03)
[2018-03-24] MEDS: FLUTICASONE 50MCG/NASAL SPRAY 16GM BOTTLE. NS SCH ×2 (08:03→20:18)
[2018-03-24] MEDS: DOCUSATE SODIUM 100 MG CAPSULE PO SCH ×2 (08:04→20:17)
[2018-03-24] MEDS: MAGNESIUM OXIDE 400 MG TABLET PO SCH ×2 (08:04→20:18)
[2018-03-24] MEDS: metFORMIN XR 500 MG TAB.ER.24H PO SCH (08:04)
[2018-03-24] MEDS: CITALOPRAM 20 MG TABLET. PO SCH (08:04)
[2018-03-24] MEDS: PRAVASTATIN 20 MG TABLET. PO SCH (08:04)
[2018-03-24] MEDS: ASPIRIN 81 MG TAB.CHEW PO SCH (08:04)
[2018-03-24] MEDS: ASCORBIC ACID 500 MG TABLET PO SCH (08:04)
[2018-03-24] MEDS: MULTIVITAMIN with MINERAL TABLET. PO SCH (08:04)
[2018-03-24] MEDS: diazePAM 2 MG TABLET PO PRN ×2 (09:00→21:05)
[2018-03-24] MEDS: LINACLOTIDE 145 MCG CAPSULE. PO SCH (09:00)
[2018-03-24 15:23] VITALS: BP 123/80
[2018-03-24] MEDS: traZODone 50 MG TABLET. PO SCH ×2 (18:34→20:17)
--- NOTE | 2018-03-24 20:16 | PDOC ---
Exam Note: Сергей Note: Please also refer to the separate dictated note~for this date of service dictated separately.~Patient seen individually. Discussed the patient with Nursing staff reviewed the chart.~Reviewed interim history and current functioning. Reviewed vital signs,~Labs/ Radiology~and current medications noted below. Continue current treatment with the changes noted in the dictated addendum note Assessment: Vital Signs: Vital Signs Date Time Temp Pulse Resp B/P (MAP) Pulse Ox O2 Delivery O2 Flow Rate FiO2 03/24/18 15:23 98.1 78 20 123/80 (94) 95 03/24/18 06:26 Room Air I&O Intake and Output 03/24/18 06:59 Intake Total 870 ml Output Total 700 ml Balance 170 ml Intake Oral 870 ml Output Urine Total 700 ml Current Medications: Meds: Current Medications Influenza Virus Vaccine (Afluria Trivalent [id number] Syringe) 0.5 ml ONCE ONCE VAX IM Last administered on 03/21/18at 13:58; Start 03/21/18 at 09:00; Stop 03/21/18 at 09:01; Status DC Acetaminophen (Tylenol) 650 mg PRN Q6HRS PRN PO PAIN / TEMP; Start 03/21/18 at 04:15 Multi-Ingredient Ointment (Analgesic [place]) 1 juan PRN QID PRN TP MUSCLE PAIN; Start 03/21/18 at 04:15 Al Hydroxide/Mg Hydroxide (Mylanta Plus Xs) 15 ml PRN AFTMEALHC PRN PO DYSPEPSIA; Start 03/21/18 at 04:15 Magnesium Hydroxide (Milk Of Magnesia) 2,400 mg PRN QHS PRN PO CONSTIPATION; Start 03/21/18 at 04:15 Info (FLU VACCINE per PROTOCOL) 1 ea PRN 1X PRN MC PER PROTOCOL; Start at 04:30; Status Cancel Ascorbic Acid (Vitamin C) 500 mg DAILY PO Last administered on 03/24/18at 08:04 ; Start 03/21/18 at 09:00 Carbidopa/Levodopa (Sinemet 25/100) 0.5 tab PRN BID PRN PO Tremors; Start 03/21 at 04:15; Status Cancel Carbidopa/Levodopa (Sinemet 25/100) 0.5 tab Q2HR W/A PO Last administered on 03/24/18at 18:34; Start 03/21/18 at 06:00 Ferrous Sulfate (Feosol) 650 mg DAILY PO ; Start 03/21/18 at 09:00; Stop at 11:35; Status DC Ibuprofen (Motrin) 600 mg PRN BID PRN PO PAIN; Start 03/21/18 at 04:15; Stop 03/21/18 at 11:44; Status DC Linaclotide (Linzess) 145 mcg DAILY PO Last administered on 03/24/18at 09:00; Start 03/21/18 at 09:00 Aspirin (Children'S Aspirin) 81 mg DAILYWBKFT PO Last administered on at 08:04; Start 03/21/18 at 08:00 Carbidopa/Levodopa (Sinemet Cr) 1 tab.sa HS PO Last administered on 03/23/18at 20:28; Start 03/21/18 at 21:00 Diazepam (Valium) 2 mg PRN Q6HRS PRN PO ANXIETY / AGITATION Last administered on 03/24/18at 09:00; Start 03/21/18 at 04:15 Divalproex Sodium (Depakote Er) 500 mg QHS PO Last administered on 03/23/18at 20 :29; Start 03/22/18 at 21:00 Docusate Sodium (Colace) 200 mg PRN DAILY PRN PO CONSTIPATION; Start 03/21/18 at 04:15; Stop 03/21/18 at 11:34; Status DC Citalopram Hydrobromide (CeleXA) 40 mg DAILY PO Last administered on 03/24/18at 08:04; Start 03/21/18 at 09:00 Fluticasone Propionate (Flonase) 2 spray DAILY NS Last administered on at 08:03; Start 03/21/18 at 09:00; Stop 03/24/18 at 10:03; Status DC Hydrocortisone (Cortaid) 1 juan PRN BID PRN TP ITCH/RASH; Start 03/21/18 at 07: 45 Non-Formulary Medication (Inulin/Chromium Picolinate (Fiber Gummies)) 2 ea TIDWMEALS PO ; Start 03/21/18 at 08:00; Status UNV Lactulose (Lactulose) 15 gm DAILYWBKFT PO Last administered on 03/24/18 08:03 ; Start 03/21/18 at 08:00 Magnesium Oxide (Magnesium Oxide) 400 mg BID PO Last administered on 03/24/18 08:04; Start 03/21/18 at 09:00 Miconazole Nitrate (Monistat-Derm) 1 juan PRN BID PRN TP RASH; Start 03/21/18 at 04:15 Multivitamins/ Calcium (Thera-M Plus) 1 tab DAILY PO Last administered on 08:04; Start 03/21/18 at 09:00 Pramipexole Dihydrochloride (miraPEX) 0.5 mg QHS PO Last administered on 20:29; Start 03/21/18 at 21:00 Pravastatin Sodium (Pravachol) 40 mg DAILY PO Last administered on 03/24/18 08 :04; Start 03/21/18 at 09:00 Trazodone HCl (Desyrel) 25 mg DAILYWSUP PO Last administered on 03/24/18 18:34 ; Start 03/21/18 at 17:00 Non-Formulary Medication (Trazodone Hcl ) 25 mg PRN DAILY PRN PO AGITATION; Start 03/21/18 at 04:15; Status UNV Trazodone HCl (Desyrel) 75 mg QHS PO Last administered on 03/23/18 20:29; Start 03/21/18 at 21:00 Divalproex Sodium (Depakote Sprinkles) 250 mg HS PO ; Start 03/21/18 at 21:00; Status UNV Divalproex Sodium (Depakote Sprinkles) 250 mg HS PO ; Start 03/21/18 at 21:00; Status UNV Olanzapine (ZyPREXA) 2.5 mg PRN Q2HR PRN PO ANXIETY / AGITATION; Start at 04:15; Status Cancel Olanzapine (ZyPREXA ZYDIS) 5 mg PRN Q2HR PRN PO PSYCHOSIS; Start 03/21/18 at 04 :15 Quetiapine Fumarate (SEROquel) 25 mg QHS PO Last administered on 03/23/18 20: 29; Start 03/21/18 at 21:00 Docusate Sodium (Colace) 100 mg BID PO Last administered on 10/7/18at 08:04; Start 03/21/18 at 21:00 Ferrous Sulfate (Feosol) 650 mg DAILY06 PO Last administered on 03/24/18at 05:57 ; Start 03/22/18 at 06:00 Ibuprofen (Motrin) 600 mg PRN BID PRN PO INFLAMMATION Last administered on 03/22at 02:26; Start 03/21/18 at 11:45 Metformin HCl (Glucophage Xr) 1,000 mg DAILYWBKFT PO Last administered on at 08:04; Start 03/22/18 at 12:00 Diclofenac Sodium (Voltaren) 1 juan TID TP Last administered on 03/22/18at 08:01 ; Start 03/21/18 at 14:00; Stop 03/22/18 at 13:01; Status DC Diclofenac Sodium (Voltaren) 1 juan PRN TID PRN TP PAIN; Start 03/22/18 at 13:00 Vitamin D (Vitamin D3) 50,000 unit WEEKLY PO Last administered on 03/22/18at 18: 34; Start 03/22/18 at 13:45 Fluticasone Propionate (Flonase) 2 spray HS NS ; Start 03/24/18 at 21:00 Active Scripts Active Reported Keflex (Cephalexin) 500 Mg Capsule 500 Mg PO QID 10 Days Pravastatin Sodium 40 Mg Tablet 40 Mg PO DAILY Carbidopa-Levo Er 50-200 Tab (Carbidopa/Levodopa) 1 Each Tablet.er 1 Each PO HS Sinemet 25-100 Mg Tablet (Carbidopa/Levodopa) 1 Each Tablet 0.5 Tab PO PRN BID PRN Sinemet 25-100 Mg Tablet (Carbidopa/Levodopa) 1 Each Tablet 0.5 Tab PO Q2HR W/A Diazepam 2 Mg Tablet 2 Mg PO PRN Q6HRS PRN Fiber Gummies (Inulin/Chromium Picolinate) 1 Each Tab.chew 2 Ea PO TIDWMEALS Mirapex (Pramipexole Di-Hcl) 0.25 Mg Tablet 0.5 Mg PO HS Linzess (Linaclotide) 145 Mcg Capsule 145 Mcg PO DAILY Trazodone Hcl 50 Mg Tablet 75 Mg PO HS PRN Testosterone Cypionate 100 Mg/1 Ml Vial 150 Mg IM Q10 DAYS Divalproex Sodium 500 Mg Tablet.dr 500 Mg PO HS Hydrocortisone 453.6 Gm Cream..g. 1 Juan TP PRN BID PRN Ferrous Sulfate 325 Mg Tablet 650 Mg PO DAILY Magnesium Oxide 400 Mg Tablet 400 Mg PO BID Miconazole Nitrate 45 Gm Cream.appl 1 Juan TP PRN BID PRN Aspirin 81 Mg Tab.chew 81 Mg PO DAILY Ibuprofen 400 Mg Tablet 600 Mg PO PRN BID PRN Docusate Sodium 100 Mg Capsule 200 Mg PO PRN DAILY PRN Escitalopram Oxalate 20 Mg Tablet 20 Mg PO DAILY Fluticasone Propionate Nasal [place] (Fluticasone Propionate) 16 Gm [place].susp 2 [place] NS DAILY Multivitamins (Multivitamin) 1 Each Tablet 1 Tab PO DAILY Trazodone Hcl 50 Mg Tablet 25 Mg PO DAILYWSUP Trazodone Hcl 50 Mg Tablet 25 Mg PO PRN DAILY PRN Ascorbic Acid 500 Mg Tablet 500 Mg PO DAILY Lactulose 10 Gm/15 Ml Solution 15 Ml PO DAILYWBKFT I have reviewed the current psychotropics carefully including drug interactions. Risk benefit ratio favors no change other than as noted in my dictated progress note. Diagnosis: Problems: (1) Anxiety disorder (2) Lewy body dementia with behavioral disturbance (3) Impulse control disorder (4) Personality disorder in adult SAY PRUETT MD Mar 24, 2018 20:16
--- NOTE | 2018-03-24 20:16 | PDOC ---
Exam Note: Сергей Note: Late entry for date of service March. Please also refer to the separate dictated note~for this date of service dictated separately.~Patient seen individually. Discussed the patient with Nursing staff reviewed the chart.~ Reviewed interim history and current functioning. Reviewed vital signs,~Labs/ Radiology~and current medications noted below. Continue current treatment with the changes noted in the dictated addendum note Assessment: Vital Signs: VS - Last 72 Hours, by Label Date Time Temp Pulse Resp B/P (MAP) Pulse Ox O2 Delivery O2 Flow Rate FiO2 03/24/18 15:23 98.1 78 20 123/80 (94) 95 03/24/18 06:26 97.7 49 14 112/71 (85) 94 Room Air 03/23/18 15:47 97.4 77 20 160/90 (113) 97 03/23/18 05:52 97.9 54 22 148/81 (103) 92 Room Air 03/22/18 16:17 98.3 90 22 123/74 (90) 95 Room Air 03/22/18 05:46 97.8 50 22 152/77 (102) 94 Room Air Vital Signs Date Time Temp Pulse Resp B/P (MAP) Pulse Ox O2 Delivery O2 Flow Rate FiO2 03/24/18 15:23 98.1 78 20 123/80 (94) 95 03/24/18 06:26 Room Air I&O Intake and Output 03/24/18 06:59 Intake Total 870 ml Output Total 700 ml Balance 170 ml Intake Oral 870 ml Output Urine Total 700 ml Current Medications: Meds: Current Medications Influenza Virus Vaccine (Afluria Trivalent [id number] Syringe) 0.5 ml ONCE ONCE VAX IM Last administered on 03/21/18at 13:58; Start 03/21/18 at 09:00; Stop 03/21/18 at 09:01; Status DC Acetaminophen (Tylenol) 650 mg PRN Q6HRS PRN PO PAIN / TEMP; Start 03/21/18 at 04:15 Multi-Ingredient Ointment (Analgesic [place]) 1 juan PRN QID PRN TP MUSCLE PAIN; Start 03/21/18 at 04:15 Al Hydroxide/Mg Hydroxide (Mylanta Plus Xs) 15 ml PRN AFTMEALHC PRN PO DYSPEPSIA; Start 03/21/18 at 04:15 Magnesium Hydroxide (Milk Of Magnesia) 2,400 mg PRN QHS PRN PO CONSTIPATION; Start 03/21/18 at 04:15 Info (FLU VACCINE per PROTOCOL) 1 ea PRN 1X PRN MC PER PROTOCOL; Start at 04:30; Status Cancel Ascorbic Acid (Vitamin C) 500 mg DAILY PO Last administered on 03/24/18at 08:04 ; Start 03/21/18 at 09:00 Carbidopa/Levodopa (Sinemet 25/100) 0.5 tab PRN BID PRN PO Tremors; Start 03/21 at 04:15; Status Cancel Carbidopa/Levodopa (Sinemet 25/100) 0.5 tab Q2HR W/A PO Last administered on 03/24/18at 18:34; Start 03/21/18 at 06:00 Ferrous Sulfate (Feosol) 650 mg DAILY PO ; Start 03/21/18 at 09:00; Stop at 11:35; Status DC Ibuprofen (Motrin) 600 mg PRN BID PRN PO PAIN; Start 03/21/18 at 04:15; Stop 03/21/18 at 11:44; Status DC Linaclotide (Linzess) 145 mcg DAILY PO Last administered on 03/24/18at 09:00; Start 03/21/18 at 09:00 Aspirin (Children'S Aspirin) 81 mg DAILYWBKFT PO Last administered on at 08:04; Start 03/21/18 at 08:00 Carbidopa/Levodopa (Sinemet Cr) 1 tab.sa HS PO Last administered on 03/23/18at 20:28; Start 03/21/18 at 21:00 Diazepam (Valium) 2 mg PRN Q6HRS PRN PO ANXIETY / AGITATION Last administered on 03/24/18 09:00; Start 03/21/18 at 04:15 Divalproex Sodium (Depakote Er) 500 mg QHS PO Last administered on 03/23/18at 20 :29; Start 03/22/18 at 21:00 Docusate Sodium (Colace) 200 mg PRN DAILY PRN PO CONSTIPATION; Start 03/21/18 at 04:15; Stop 03/21/18 at 11:34; Status DC Citalopram Hydrobromide (CeleXA) 40 mg DAILY PO Last administered on 03/24/18 08:04; Start 03/21/18 at 09:00 Fluticasone Propionate (Flonase) 2 spray DAILY NS Last administered on at 08:03; Start 03/21/18 at 09:00; Stop 03/24/18 at 10:03; Status DC Hydrocortisone (Cortaid) 1 juan PRN BID PRN TP ITCH/RASH; Start 03/21/18 at 07: 45 Non-Formulary Medication (Inulin/Chromium Picolinate (Fiber Gummies)) 2 ea TIDWMEALS PO ; Start 03/21/18 at 08:00; Status UNV Lactulose (Lactulose) 15 gm DAILYWBKFT PO Last administered on 03/24/18at 08:03 ; Start 03/21/18 at 08:00 Magnesium Oxide (Magnesium Oxide) 400 mg BID PO Last administered on 03/24/18at 08:04; Start 03/21/18 at 09:00 Miconazole Nitrate (Monistat-Derm) 1 juan PRN BID PRN TP RASH; Start 03/21/18 at 04:15 Multivitamins/ Calcium (Thera-M Plus) 1 tab DAILY PO Last administered on at 08:04; Start 03/21/18 at 09:00 Pramipexole Dihydrochloride (miraPEX) 0.5 mg QHS PO Last administered on 20:29; Start 03/21/18 at 21:00 Pravastatin Sodium (Pravachol) 40 mg DAILY PO Last administered on 03/24/18at 08 :04; Start 03/21/18 at 09:00 Trazodone HCl (Desyrel) 25 mg DAILYWSUP PO Last administered on 03/24/18at 18:34 ; Start 03/21/18 at 17:00 Non-Formulary Medication (Trazodone Hcl ) 25 mg PRN DAILY PRN PO AGITATION; Start 03/21/18 at 04:15; Status UNV Trazodone HCl (Desyrel) 75 mg QHS PO Last administered on 03/23/18at 20:29; Start 03/21/18 at 21:00 Divalproex Sodium (Depakote Sprinkles) 250 mg HS PO ; Start 03/21/18 at 21:00; Status UNV Divalproex Sodium (Depakote Sprinkles) 250 mg HS PO ; Start 03/21/18 at 21:00; Status UNV Olanzapine (ZyPREXA) 2.5 mg PRN Q2HR PRN PO ANXIETY / AGITATION; Start at 04:15; Status Cancel Olanzapine (ZyPREXA ZYDIS) 5 mg PRN Q2HR PRN PO PSYCHOSIS; Start 03/21/18 at 04 :15 Quetiapine Fumarate (SEROquel) 25 mg QHS PO Last administered on 03/23/18at 20: 29; Start 03/21/18 at 21:00 Docusate Sodium (Colace) 100 mg BID PO Last administered on 03/24/18at 08:04; Start 03/21/18 at 21:00 Ferrous Sulfate (Feosol) 650 mg DAILY06 PO Last administered on 03/24/18at 05:57 ; Start 03/22/18 at 06:00 Ibuprofen (Motrin) 600 mg PRN BID PRN PO INFLAMMATION Last administered on 03/22at 02:26; Start 03/21/18 at 11:45 Metformin HCl (Glucophage Xr) 1,000 mg DAILYWBKFT PO Last administered on at 08:04; Start 03/22/18 at 12:00 Diclofenac Sodium (Voltaren) 1 juan TID TP Last administered on 03/22/18at 08:01 ; Start 03/21/18 at 14:00; Stop 03/22/18 at 13:01; Status DC Diclofenac Sodium (Voltaren) 1 juan PRN TID PRN TP PAIN; Start 03/22/18 at 13:00 Vitamin D (Vitamin D3) 50,000 unit WEEKLY PO Last administered on 03/22/18at 18: 34; Start 03/22/18 at 13:45 Fluticasone Propionate (Flonase) 2 spray HS NS ; Start 03/24/18 at 21:00 Active Scripts Active Reported Keflex (Cephalexin) 500 Mg Capsule 500 Mg PO QID 10 Days Pravastatin Sodium 40 Mg Tablet 40 Mg PO DAILY Carbidopa-Levo Er 50-200 Tab (Carbidopa/Levodopa) 1 Each Tablet.er 1 Each PO HS Sinemet 25-100 Mg Tablet (Carbidopa/Levodopa) 1 Each Tablet 0.5 Tab PO PRN BID PRN Sinemet 25-100 Mg Tablet (Carbidopa/Levodopa) 1 Each Tablet 0.5 Tab PO Q2HR W/A Diazepam 2 Mg Tablet 2 Mg PO PRN Q6HRS PRN Fiber Gummies (Inulin/Chromium Picolinate) 1 Each Tab.chew 2 Ea PO TIDWMEALS Mirapex (Pramipexole Di-Hcl) 0.25 Mg Tablet 0.5 Mg PO HS Linzess (Linaclotide) 145 Mcg Capsule 145 Mcg PO DAILY Trazodone Hcl 50 Mg Tablet 75 Mg PO HS PRN Testosterone Cypionate 100 Mg/1 Ml Vial 150 Mg IM Q10 DAYS Divalproex Sodium 500 Mg Tablet.dr 500 Mg PO HS Hydrocortisone 453.6 Gm Cream..g. 1 Juan TP PRN BID PRN Ferrous Sulfate 325 Mg Tablet 650 Mg PO DAILY Magnesium Oxide 400 Mg Tablet 400 Mg PO BID Miconazole Nitrate 45 Gm Cream.appl 1 Juan TP PRN BID PRN Aspirin 81 Mg Tab.chew 81 Mg PO DAILY Ibuprofen 400 Mg Tablet 600 Mg PO PRN BID PRN Docusate Sodium 100 Mg Capsule 200 Mg PO PRN DAILY PRN Escitalopram Oxalate 20 Mg Tablet 20 Mg PO DAILY Fluticasone Propionate Nasal [place] (Fluticasone Propionate) 16 Gm [place].susp 2 [place] NS DAILY Multivitamins (Multivitamin) 1 Each Tablet 1 Tab PO DAILY Trazodone Hcl 50 Mg Tablet 25 Mg PO DAILYWSUP Trazodone Hcl 50 Mg Tablet 25 Mg PO PRN DAILY PRN Ascorbic Acid 500 Mg Tablet 500 Mg PO DAILY Lactulose 10 Gm/15 Ml Solution 15 Ml PO DAILYWBKFT I have reviewed the current psychotropics carefully including drug interactions. Risk benefit ratio favors no change other than as noted in my dictated progress note. Diagnosis: Problems: (1) Anxiety disorder (2) Lewy body dementia with behavioral disturbance (3) Impulse control disorder (4) Personality disorder in adult SAY PRUETT MD Mar 24, 2018 20:16
[2018-03-24] MEDS: PRAMIPEXOLE 0.5 MG TABLET. PO SCH (20:17)
[2018-03-24] MEDS: DIVALPROEX ER 500 MG TAB.ER.24H PO SCH (20:17)
[2018-03-24] MEDS: CARBIDOPA/LEVODOPA CR 50/200MG TABLET.SA PO SCH (20:17)
[2018-03-24] MEDS: QUEtiapine 25 MG TABLET. PO SCH (20:18)
[2018-03-24] MEDS: ACETAMINOPHEN 325 MG TABLET PO PRN (21:05)
--- NOTE | 2018-03-25 00:11 | PN ---
DATE: 03/22/2018 This is a late entry for 03/22/2018 and covers elements not covered in my initial note. SUBJECTIVE: I met with the patient in the evening. The patient slept 5-1/4 hours previous night. The patient remains somewhat anxious, labile, impulsive, put himself on the floor on 2 occasions. EKG was done as he has a deep brain stimulator, whose batteries are low. We will defer to Dr. Rahman and the patient's neurologist for this. He has had some falls and perhaps, it became loose during that time. Slept 5-1/4 hours previous evening. We will check a valproic acid level in the morning. Consult Dr. Daugherty, Neurology. REVIEW OF SYSTEMS: Ambulation impaired. No CV, , pulmonary, eye, ENT system symptoms on review. MENTAL STATUS EXAM: Oriented to himself and situation. Speech coherent, has some latency, pressured at times. Abstraction fair, computation impaired, language function intact. Mood and affect remains quite intense, labile at times. LABORATORY DATA: Reviewed. IMPRESSION: Dementia, Lewy body versus Alzheimer's, vascular with delusion, depression, behavioral disturbance. Rest unchanged. PLAN: No change from initial note. Check valproic acid level in the morning, adjust Depakote thereafter. MAN Rosa PRUETT MD DR: MARCEL/nano JOB#: [id number] / [id number]
--- NOTE | 2018-03-25 03:04 | PN ---
DATE: 03/23/2018 This is a late entry, 03/23/2018, covers the elements not covered in my initial note. SUBJECTIVE: I met with the patient in the evening. The patient slept 5-1/4 hours the previous evening. He remains somewhat intense, anxious, hyperverbal as I met with him. REVIEW OF SYSTEMS: Ambulation impaired, in a wheelchair. No CV, , pulmonary, eye, ENT system symptoms on review. MENTAL STATUS EXAM: Oriented to himself and situation. Speech coherent, rapid at times. Abstraction fair, computation impaired, language function intact. Mood and affect remain somewhat labile. LABORATORY DATA: Reviewed. IMPRESSION: Major neurocognitive disorder, early Lewy body with delusion, behavioral disturbance. Rest unchanged. PLAN: No change from initial note. MAN Rosa PRUETT MD DR: MARCEL/nano JOB#: [id number] / [id number]
--- NOTE | 2018-03-25 03:46 | CONS ---
DATE OF CONSULTATION: 03/23/2018 NEUROLOGY CONSULTATION REFERRING PHYSICIAN: Dr. Martins. CONSULTATION: Worsening of Parkinson disease. HISTORY OF PRESENT ILLNESS: This is a 67-year-old right-handed male, who was initially admitted to Emergency Room at [facility] on account of having behavior disturbances at home. Subsequently, the patient was discharged home with 24 hours of home care. Neuro consult was requested because the patient had Parkinson's disease and Lewy body dementia. He underwent a deep nerve stimulator placement for exacerbation of Parkinson disease and tremor approximately a year ago at [facility] with significant improvement of his symptoms; however, he was recently told that some of these symptoms probably are related to dysfunction of the neurostimulator. A neurostimulator company nurse was contacted to integrate the system, but she failed to show up yesterday. The patient was scheduled to have a neurostimulator interrogation, probably early next week on Sunday03/25/2018. It was reported that the patient has had intermittent inappropriate sexual behavior at home with recently aggressive behavior towards his . Therefore, it was decided to transfer the [facility] to [facility] evaluation. Currently, the patient denies headaches, visual disturbances, nausea, vomiting, chest pain, shortness of breath or palpitation, dysarthria, dysphagia, weakness or paresthesia. The patient has not had any obvious tremor. However, he has some rigidity of the lower extremities. PAST MEDICAL HISTORY: Significant for Parkinson disease as described above, required medications and neurotransmitter placement; history of Lewy body dementia, hyperlipidemia, obesity, obstructive sleep apnea, hypogonadism, vitamin D deficiency. PAST SURGICAL HISTORY: Status post left rotator cuff tear repair, tonsillectomy, deep nerve stimulator placement a year ago at [facility], history of left posterior tibial tendon tear many years ago. SOCIAL HISTORY: The patient is . He lives with his at home. He denies smoking, alcohol drinking, or illicit drug use. CURRENT MEDICATIONS: Flonase nasal spray, Depakote ER 500 mg at bedtime, vitamin D3, Voltaren gel, metformin, ferrous sulfate, Seroquel 25 mg at bedtime, trazodone 75 mg at bedtime, Mirapex 0.5 mg at bedtime, carbidopa/levodopa ER 25/100 half tablet every 2 hours while awake and carbidopa/levodopa ER 50/200 at bedtime, aspirin 81 mg daily, ibuprofen 600 mg p.o. ____, lovastatin 40 mg at bedtime, multivitamins, magnesium, Celexa 40 mg daily, Linzess 145 mg daily, vitamin C 500 mg daily, olanzapine 5 mg every 2 hours p.r.n. for agitation, diazepam 2 mg q.6 hours p.r.n. for anxiety and agitation, and Tylenol p.r.n. ALLERGIES: No known drug allergies. REVIEW OF SYSTEMS: A 10-point review of system was performed as mentioned above in history of present illness. PHYSICAL EXAMINATION: GENERAL: An obese male, not in acute distress. He weighs 298 pounds. VITAL SIGNS: Blood pressure 148/81, respiratory rate 22, pulse is 54, temperature 97.9, and oxygen saturation is 92% on room air. HEENT: Normocephalic and atraumatic, otherwise unremarkable. NECK: Supple. Negative for carotid bruit, lymphadenopathy or thyromegaly. LUNGS: Clear to A and P. CARDIOVASCULAR: Regular rhythm, normal S1 and S2. There is no S3, S4 or murmur. ABDOMEN: Soft. Bowel sounds positive. EXTREMITIES: Negative for cyanosis, clubbing, pitting edema. MENTAL STATUS: The patient is alert and oriented x 3. The speech is fluent. There is no language dysfunction. The patient recalls 2/3 immediately and 1/3 after 1 and 3 minutes. Judgment and abstract thinking are normal. The patient denies hallucination or delusion. CRANIAL NERVES: Visual see are full. The pupils are reactive to light and accommodation but the patient appeared to have exophthalmos, there is no nystagmus. There is no facial motor or sensory deficit. Hearing is intact bilaterally. The palate is elevated symmetrically. Sternocleidomastoid muscles are powerful bilaterally. The patient shrugs his shoulders symmetrically, protrudes his tongue in the midline without fasciculation or atrophy. MOTOR: No focal muscle bulk was seen. The tone was normal. The strength was 5/5 throughout. SENSORY: Examination revealed normal pinprick and light touch senses throughout. DEEP TENDON REFLEXES: Symmetric and hypoactive with absent Achilles responses. GAIT: The patient uses a walker for ambulation and for balance purposes. LABORATORY DATA: CBC revealed white blood cells of 8500, hemoglobin 13.4, hematocrit 39.5, and platelet count 169,000. Chemistry revealed sodium of 140, potassium 4, chloride 101, CO2 of 37, BUN 14, creatinine 0.8, glucose 93, calcium 9.3, and hemoglobin A1c is 5.3. Iron is 53. Liver enzymes are low ____ AST and ALT. Normal lipid profile. Vitamin B of 380 and vitamin D of 23.8 with normal TSH, T4 and T3. Urinalysis, no evidence of urinary tract infection. Valproic acid is low at 11. IMPRESSION: 1. Parkinson disease with Lewy body dementia with no evidence of a focal neurological deficit. The patient has no obvious exacerbation of parkinsonism at the time of this evaluation. 2. Multiple medical problems include Lewy body dementia and questionable of dysfunction of the deep nerve stimulator, hyperlipidemia, obesity, obstructive sleep apnea, and hypogonadism. RECOMMENDATIONS: 1. Continue with current management for Parkinson's disease including carbidopa/levodopa and Mirapex. 2. We will integrate the deep nerve stimulator functions next Sunday. 3. We would continue with current management, continue with current medical and psychiatric care and management. 4. Continue with current management for Parkinson disease. M Malena GILES MD DR: MK/nano JOB#: [id number] / [id number]
[2018-03-25 05:55] VITALS: BP 138/84
[2018-03-25] MEDS: CARBIDOPA/LEVODOPA 25/100MG TABLET PO SCH ×9 (05:56→22:53)
[2018-03-25] MEDS: FERROUS SULFATE 325 MG TABLET. PO SCH (05:56)
[2018-03-25] MEDS: LACTULOSE 20 GM/30 ML SOLUTION. PO SCH (10:01)
[2018-03-25] MEDS: metFORMIN XR 500 MG TAB.ER.24H PO SCH (10:02)
[2018-03-25] MEDS: CITALOPRAM 20 MG TABLET. PO SCH (10:02)
[2018-03-25] MEDS: ASCORBIC ACID 500 MG TABLET PO SCH (10:02)
[2018-03-25] MEDS: ASPIRIN 81 MG TAB.CHEW PO SCH (10:02)
[2018-03-25] MEDS: DOCUSATE SODIUM 100 MG CAPSULE PO SCH ×2 (10:02→20:50)
[2018-03-25] MEDS: MAGNESIUM OXIDE 400 MG TABLET PO SCH ×2 (10:03→20:50)
[2018-03-25] MEDS: PRAVASTATIN 20 MG TABLET. PO SCH (10:03)
[2018-03-25] MEDS: MULTIVITAMIN with MINERAL TABLET. PO SCH (10:03)
[2018-03-25] MEDS: LINACLOTIDE 145 MCG CAPSULE. PO SCH (10:05)
[2018-03-25] MEDS: diazePAM 2 MG TABLET PO PRN ×2 (13:56→22:53)
--- NOTE | 2018-03-25 14:50 | PN ---
DATE: 03/24/2018 This note covers elements not covered in my initial note. SUBJECTIVE: I met with the patient in the evening. The patient slept 5-1/4 hours previous evening. He had a good day. does not want him to call out. The patient is manipulative. REVIEW OF SYSTEMS: No CV, , pulmonary, eye system symptoms on review. Gait unsteady. MENTAL STATUS EXAM: Oriented to himself and situation. Speech coherent, somewhat pressured. He is pleased that someone has got him his glasses and he wants his shoes out and dress with him. Speech coherent, abstraction fair, computation impaired, language function intact. Mood and affect remains somewhat labile at times. LABORATORY DATA: Reviewed. IMPRESSION: Unchanged from initial note. PLAN: No change from initial note. MAN Rosa PRUETT MD DR: MARCEL/nano JOB#: [id number] / [id number]
[2018-03-25 15:50] VITALS: BP 131/73
[2018-03-25] MEDS: traZODone 50 MG TABLET. PO SCH ×2 (17:43→20:50)
[2018-03-25] MEDS: PRAMIPEXOLE 0.5 MG TABLET. PO SCH (20:48)
[2018-03-25] MEDS: CARBIDOPA/LEVODOPA CR 50/200MG TABLET.SA PO SCH (20:49)
[2018-03-25] MEDS: DIVALPROEX ER 500 MG TAB.ER.24H PO SCH (20:49)
[2018-03-25] MEDS: QUEtiapine 25 MG TABLET. PO SCH (20:49)
--- NOTE | 2018-03-25 20:51 | PDOC ---
Exam Note: Сергей Note: Please also refer to the separate dictated note~for this date of service dictated separately.~Patient seen individually. Discussed the patient with Nursing staff reviewed the chart.~Reviewed interim history and current functioning. Reviewed vital signs,~Labs/ Radiology~and current medications noted below. Continue current treatment with the changes noted in the dictated addendum note Assessment: Vital Signs: Vital Signs Date Time Temp Pulse Resp B/P (MAP) Pulse Ox O2 Delivery O2 Flow Rate FiO2 03/25/18 15:50 97.8 73 20 131/73 (92) 94 03/25/18 05:55 Room Air I&O Intake and Output 03/25/18 06:59 Intake Total 720 ml Balance 720 ml Intake Oral 600 ml Tube Feeding 120 ml # Bowel Movements 1 Current Medications: Meds: Current Medications Influenza Virus Vaccine (Afluria Trivalent [id number] Syringe) 0.5 ml ONCE ONCE VAX IM Last administered on 03/21/18at 13:58; Start 03/21/18 at 09:00; Stop 03/21/18 at 09:01; Status DC Acetaminophen (Tylenol) 650 mg PRN Q6HRS PRN PO PAIN / TEMP Last administered on 03/24/18at 21:05; Start 03/21/18 at 04:15 Multi-Ingredient Ointment (Analgesic [place]) 1 juan PRN QID PRN TP MUSCLE PAIN; Start 03/21/18 at 04:15 Al Hydroxide/Mg Hydroxide (Mylanta Plus Xs) 15 ml PRN AFTMEALHC PRN PO DYSPEPSIA; Start 03/21/18 at 04:15 Magnesium Hydroxide (Milk Of Magnesia) 2,400 mg PRN QHS PRN PO CONSTIPATION; Start 03/21/18 at 04:15 Info (FLU VACCINE per PROTOCOL) 1 ea PRN 1X PRN MC PER PROTOCOL; Start at 04:30; Status Cancel Ascorbic Acid (Vitamin C) 500 mg DAILY PO Last administered on 03/25/18at 10:02 ; Start 03/21/18 at 09:00 Carbidopa/Levodopa (Sinemet 25/100) 0.5 tab PRN BID PRN PO Tremors; Start 03/21 at 04:15; Status Cancel Carbidopa/Levodopa (Sinemet 25/100) 0.5 tab Q2HR W/A PO Last administered on 03/25/18at 17:44; Start 03/21/18 at 06:00 Ferrous Sulfate (Feosol) 650 mg DAILY PO ; Start 03/21/18 at 09:00; Stop at 11:35; Status DC Ibuprofen (Motrin) 600 mg PRN BID PRN PO PAIN; Start 03/21/18 at 04:15; Stop 03/21/18 at 11:44; Status DC Linaclotide (Linzess) 145 mcg DAILY PO Last administered on 03/25/18at 10:05; Start 03/21/18 at 09:00 Aspirin (Children'S Aspirin) 81 mg DAILYWBKFT PO Last administered on at 10:02; Start 03/21/18 at 08:00 Carbidopa/Levodopa (Sinemet Cr) 1 tab.sa HS PO Last administered on 03/24/18at 20:17; Start 03/21/18 at 21:00 Diazepam (Valium) 2 mg PRN Q6HRS PRN PO ANXIETY / AGITATION Last administered on 03/25/18at 13:56; Start 03/21/18 at 04:15 Divalproex Sodium (Depakote Er) 500 mg QHS PO Last administered on 03/24/18at 20 :17; Start 03/22/18 at 21:00; Stop 03/25/18 at 16:52; Status DC Docusate Sodium (Colace) 200 mg PRN DAILY PRN PO CONSTIPATION; Start 03/21/18 at 04:15; Stop 03/21/18 at 11:34; Status DC Citalopram Hydrobromide (CeleXA) 40 mg DAILY PO Last administered on 03/25/18at 10:02; Start 03/21/18 at 09:00 Fluticasone Propionate (Flonase) 2 spray DAILY NS Last administered on at 08:03; Start 03/21/18 at 09:00; Stop 03/24/18 at 10:03; Status DC Hydrocortisone (Cortaid) 1 juan PRN BID PRN TP ITCH/RASH; Start 03/21/18 at 07: 45 Non-Formulary Medication (Inulin/Chromium Picolinate (Fiber Gummies)) 2 ea TIDWMEALS PO ; Start 03/21/18 at 08:00; Status UNV Lactulose (Lactulose) 15 gm DAILYWBKFT PO Last administered on 03/25/18at 10:01 ; Start 03/21/18 at 08:00 Magnesium Oxide (Magnesium Oxide) 400 mg BID PO Last administered on 03/25/18at 10:03; Start 03/21/18 at 09:00 Miconazole Nitrate (Monistat-Derm) 1 juan PRN BID PRN TP RASH; Start 03/21/18 at 04:15 Multivitamins/ Calcium (Thera-M Plus) 1 tab DAILY PO Last administered on 10:03; Start 03/21/18 at 09:00 Pramipexole Dihydrochloride (miraPEX) 0.5 mg QHS PO Last administered on 20:17; Start 03/21/18 at 21:00 Pravastatin Sodium (Pravachol) 40 mg DAILY PO Last administered on 03/25/18 10 :03; Start 03/21/18 at 09:00 Trazodone HCl (Desyrel) 25 mg DAILYWSUP PO Last administered on 03/25/18at 17:43 ; Start 03/21/18 at 17:00 Non-Formulary Medication (Trazodone Hcl ) 25 mg PRN DAILY PRN PO AGITATION; Start 03/21/18 at 04:15; Status UNV Trazodone HCl (Desyrel) 75 mg QHS PO Last administered on 03/24/18at 20:17; Start 03/21/18 at 21:00 Divalproex Sodium (Depakote Sprinkles) 250 mg HS PO ; Start 03/21/18 at 21:00; Status UNV Divalproex Sodium (Depakote Sprinkles) 250 mg HS PO ; Start 03/21/18 at 21:00; Status UNV Olanzapine (ZyPREXA) 2.5 mg PRN Q2HR PRN PO ANXIETY / AGITATION; Start at 04:15; Status Cancel Olanzapine (ZyPREXA ZYDIS) 5 mg PRN Q2HR PRN PO PSYCHOSIS; Start 03/21/18 at 04 :15 Quetiapine Fumarate (SEROquel) 25 mg QHS PO Last administered on 03/24/18at 20: 18; Start 03/21/18 at 21:00 Docusate Sodium (Colace) 100 mg BID PO Last administered on 03/25/18at 10:02; Start 03/21/18 at 21:00 Ferrous Sulfate (Feosol) 650 mg DAILY06 PO Last administered on 03/25/18at 05:56 ; Start 03/22/18 at 06:00 Ibuprofen (Motrin) 600 mg PRN BID PRN PO INFLAMMATION Last administered on 03/22at 02:26; Start 03/21/18 at 11:45 Metformin HCl (Glucophage Xr) 1,000 mg DAILYWBKFT PO Last administered on at 10:02; Start 03/22/18 at 12:00 Diclofenac Sodium (Voltaren) 1 juan TID TP Last administered on 03/22/18at 08:01 ; Start 03/21/18 at 14:00; Stop 03/22/18 at 13:01; Status DC Diclofenac Sodium (Voltaren) 1 juan PRN TID PRN TP PAIN; Start 03/22/18 at 13:00 Vitamin D (Vitamin D3) 50,000 unit WEEKLY PO Last administered on 03/22/18at 18: 34; Start 03/22/18 at 13:45 Fluticasone Propionate (Flonase) 2 spray HS NS Last administered on 03/24/18at 20:18; Start 03/24/18 at 21:00 Divalproex Sodium (Depakote Er) 1,000 mg QHS PO ; Start 03/25/18 at 21:00 Active Scripts Active Reported Keflex (Cephalexin) 500 Mg Capsule 500 Mg PO QID 10 Days Pravastatin Sodium 40 Mg Tablet 40 Mg PO DAILY Carbidopa-Levo Er 50-200 Tab (Carbidopa/Levodopa) 1 Each Tablet.er 1 Each PO HS Sinemet 25-100 Mg Tablet (Carbidopa/Levodopa) 1 Each Tablet 0.5 Tab PO PRN BID PRN Sinemet 25-100 Mg Tablet (Carbidopa/Levodopa) 1 Each Tablet 0.5 Tab PO Q2HR W/A Diazepam 2 Mg Tablet 2 Mg PO PRN Q6HRS PRN Fiber Gummies (Inulin/Chromium Picolinate) 1 Each Tab.chew 2 Ea PO TIDWMEALS Mirapex (Pramipexole Di-Hcl) 0.25 Mg Tablet 0.5 Mg PO HS Linzess (Linaclotide) 145 Mcg Capsule 145 Mcg PO DAILY Trazodone Hcl 50 Mg Tablet 75 Mg PO HS PRN Testosterone Cypionate 100 Mg/1 Ml Vial 150 Mg IM Q10 DAYS Divalproex Sodium 500 Mg Tablet.dr 500 Mg PO HS Hydrocortisone 453.6 Gm Cream..g. 1 Juan TP PRN BID PRN Ferrous Sulfate 325 Mg Tablet 650 Mg PO DAILY Magnesium Oxide 400 Mg Tablet 400 Mg PO BID Miconazole Nitrate 45 Gm Cream.appl 1 Juan TP PRN BID PRN Aspirin 81 Mg Tab.chew 81 Mg PO DAILY Ibuprofen 400 Mg Tablet 600 Mg PO PRN BID PRN Docusate Sodium 100 Mg Capsule 200 Mg PO PRN DAILY PRN Escitalopram Oxalate 20 Mg Tablet 20 Mg PO DAILY Fluticasone Propionate Nasal Hawley (Fluticasone Propionate) 16 Gm Hawley.susp 2 Hawley NS DAILY Multivitamins (Multivitamin) 1 Each Tablet 1 Tab PO DAILY Trazodone Hcl 50 Mg Tablet 25 Mg PO DAILYWSUP Trazodone Hcl 50 Mg Tablet 25 Mg PO PRN DAILY PRN Ascorbic Acid 500 Mg Tablet 500 Mg PO DAILY Lactulose 10 Gm/15 Ml Solution 15 Ml PO DAILYWBKFT I have reviewed the current psychotropics carefully including drug interactions. Risk benefit ratio favors no change other than as noted in my dictated progress note. Diagnosis: Problems: (1) Anxiety disorder (2) Lewy body dementia with behavioral disturbance (3) Impulse control disorder (4) Personality disorder in adult SAY PRUETT MD Mar 25, 2018 20:51
[2018-03-25] MEDS: FLUTICASONE 50MCG/NASAL SPRAY 16GM BOTTLE. NS SCH (20:52)
--- NOTE | 2018-03-25 22:11 | PN ---
DATE: 03/24/2018 SUBJECTIVE: The patient denies any new medical or neurological complaints. According to the nursing staff, the patient tried to put himself down on the ground in the floor if things did not go in his way. However, the patient complains of having a low seat and a small wheelchair, therefore, so he cannot fit. He denies any tremor or rigidity; however, he continues to have difficulty walking due to severe arthritis and hip pains. OBJECTIVE: GENERAL: Obese male, not in acute distress. VITAL SIGNS: Blood pressure 112/71, respiratory rate 14, pulse is 94, temperature 97.7, oxygen saturation 94% on room air. HEENT: Normocephalic, atraumatic, otherwise unremarkable. NECK: Supple. Negative for carotid bruit, lymphadenopathy or thyromegaly. LUNGS: Clear to A and P. CARDIOVASCULAR: Regular rate and rhythm, normal S1, S2. There is no S3, S4, or murmur. ABDOMEN: Soft. Bowel sounds positive. EXTREMITIES: Negative for cyanosis, clubbing or pitting edema. NEUROLOGIC: The patient is alert and oriented x 3. Speech is fluent. There is no language dysfunction. Memory: The patient recalls 2/3 immediately and after 1 and 3 minutes. Judgment abstract and thinking are normal. The patient denies hallucination or delusion. Cranial nerves are intact except for ____ thalamus bilaterally. No focal muscle bulk was seen. The tone is normal. The strength is 5/5 throughout. Sensory examination revealed normal pinprick, light touch, vibratory and position senses. Deep tendon reflexes were symmetric and hypoactive with absent Achilles responses. Gait: The patient has difficulty to stand up and walk. IMPRESSION: 1. Parkinson's disease with history of Lewy body dementia. Currently, the patient has not had any evidence of exacerbation of his parkinsonism. 2. Multiple medical problems include obstructive sleep apnea, hypertension, status post deep nerve stimulator implant. RECOMMENDATIONS: 1. Continue with current management. Continue with current medical and psychiatric care. 2. Await for deep nerve stimulator on tomorrow, Sunday morning, otherwise the patient is neurologically stable. M Malena GILES MD DR: MK/nano JOB#: [id number] / [id number]
[2018-03-26] MEDS: FERROUS SULFATE 325 MG TABLET. PO SCH (04:38)
[2018-03-26] MEDS: CARBIDOPA/LEVODOPA 25/100MG TABLET PO SCH ×9 (04:38→23:09)
[2018-03-26 06:09] VITALS: BP 129/90
[2018-03-26] MEDS: PRAVASTATIN 20 MG TABLET. PO SCH (08:10)
[2018-03-26] MEDS: ASPIRIN 81 MG TAB.CHEW PO SCH (08:10)
[2018-03-26] MEDS: LACTULOSE 20 GM/30 ML SOLUTION. PO SCH (08:10)
[2018-03-26] MEDS: DOCUSATE SODIUM 100 MG CAPSULE PO SCH ×2 (08:11→21:07)
[2018-03-26] MEDS: metFORMIN XR 500 MG TAB.ER.24H PO SCH (08:11)
[2018-03-26] MEDS: MAGNESIUM OXIDE 400 MG TABLET PO SCH ×2 (08:11→21:07)
[2018-03-26] MEDS: MULTIVITAMIN with MINERAL TABLET. PO SCH (08:11)
[2018-03-26] MEDS: CITALOPRAM 20 MG TABLET. PO SCH (08:11)
[2018-03-26] MEDS: ASCORBIC ACID 500 MG TABLET PO SCH (08:11)
[2018-03-26] MEDS: LINACLOTIDE 145 MCG CAPSULE. PO SCH (08:12)
[2018-03-26] MEDS: diazePAM 2 MG TABLET PO PRN ×2 (12:59→21:18)
[2018-03-26 16:51] VITALS: BP 147/80
[2018-03-26] MEDS: traZODone 50 MG TABLET. PO SCH ×2 (17:32→21:07)
[2018-03-26] MEDS: FLUTICASONE 50MCG/NASAL SPRAY 16GM BOTTLE. NS SCH (21:00)
[2018-03-26] MEDS: NYSTATIN TOPICAL POWDER 15GM BOTTLE. TP SCH (21:00)
[2018-03-26] MEDS: PRAMIPEXOLE 0.5 MG TABLET. PO SCH (21:06)
[2018-03-26] MEDS: DIVALPROEX ER 500 MG TAB.ER.24H PO SCH (21:06)
[2018-03-26] MEDS: QUEtiapine 25 MG TABLET. PO SCH (21:07)
[2018-03-26] MEDS: CARBIDOPA/LEVODOPA CR 50/200MG TABLET.SA PO SCH (21:07)
[2018-03-26] MEDS: MELATONIN 3 MG TABLET PO SCH (21:11)
--- NOTE | 2018-03-26 21:11 | PDOC ---
Exam Note: Сергей Note: Please also refer to the separate dictated note~for this date of service dictated separately.~Patient seen individually. Discussed the patient with Nursing staff reviewed the chart.~Reviewed interim history and current functioning. Reviewed vital signs,~Labs/ Radiology~and current medications noted below. Continue current treatment with the changes noted in the dictated addendum note Assessment: Vital Signs: Vital Signs Date Time Temp Pulse Resp B/P (MAP) Pulse Ox O2 Delivery O2 Flow Rate FiO2 03/26/18 16:51 97.5 79 22 147/80 (102) 93 03/25/18 05:55 Room Air I&O Intake and Output 03/26/18 07:00 Intake Total 1160 ml Balance 1160 ml Intake Oral 1160 ml # Voids 1 Current Medications: Meds: Current Medications Influenza Virus Vaccine (Afluria Trivalent [id number] Syringe) 0.5 ml ONCE ONCE VAX IM Last administered on 03/21/18at 13:58; Start 03/21/18 at 09:00; Stop 03/21/18 at 09:01; Status DC Acetaminophen (Tylenol) 650 mg PRN Q6HRS PRN PO PAIN / TEMP Last administered on 03/24/18at 21:05; Start 03/21/18 at 04:15 Multi-Ingredient Ointment (Analgesic [place]) 1 juan PRN QID PRN TP MUSCLE PAIN; Start 03/21/18 at 04:15 Al Hydroxide/Mg Hydroxide (Mylanta Plus Xs) 15 ml PRN AFTMEALHC PRN PO DYSPEPSIA; Start 03/21/18 at 04:15 Magnesium Hydroxide (Milk Of Magnesia) 2,400 mg PRN QHS PRN PO CONSTIPATION; Start 03/21/18 at 04:15 Info (FLU VACCINE per PROTOCOL) 1 ea PRN 1X PRN MC PER PROTOCOL; Start at 04:30; Status Cancel Ascorbic Acid (Vitamin C) 500 mg DAILY PO Last administered on 03/26/18at 08:11 ; Start 03/21/18 at 09:00 Carbidopa/Levodopa (Sinemet 25/100) 0.5 tab PRN BID PRN PO Tremors; Start 03/21 at 04:15; Status Cancel Carbidopa/Levodopa (Sinemet 25/100) 0.5 tab Q2HR W/A PO Last administered on 03/26/18at 17:32; Start 03/21/18 at 06:00 Ferrous Sulfate (Feosol) 650 mg DAILY PO ; Start 03/21/18 at 09:00; Stop at 11:35; Status DC Ibuprofen (Motrin) 600 mg PRN BID PRN PO PAIN; Start 03/21/18 at 04:15; Stop 03/21/18 at 11:44; Status DC Linaclotide (Linzess) 145 mcg DAILY PO Last administered on 03/26/18at 08:12; Start 03/21/18 at 09:00 Aspirin (Children'S Aspirin) 81 mg DAILYWBKFT PO Last administered on 08:10; Start 03/21/18 at 08:00 Carbidopa/Levodopa (Sinemet Cr) 1 tab.sa HS PO Last administered on 03/26/18 21:07; Start 03/21/18 at 21:00 Diazepam (Valium) 2 mg PRN Q6HRS PRN PO ANXIETY / AGITATION Last administered on 03/26/18at 12:59; Start 03/21/18 at 04:15 Divalproex Sodium (Depakote Er) 500 mg QHS PO Last administered on 03/24/18at 20 :17; Start 03/22/18 at 21:00; Stop 03/25/18 at 16:52; Status DC Docusate Sodium (Colace) 200 mg PRN DAILY PRN PO CONSTIPATION; Start 03/21/18 at 04:15; Stop 03/21/18 at 11:34; Status DC Citalopram Hydrobromide (CeleXA) 40 mg DAILY PO Last administered on 03/26/18at 08:11; Start 03/21/18 at 09:00 Fluticasone Propionate (Flonase) 2 spray DAILY NS Last administered on 08:03; Start 03/21/18 at 09:00; Stop 03/24/18 at 10:03; Status DC Hydrocortisone (Cortaid) 1 juan PRN BID PRN TP ITCH/RASH Last administered on at 10:47; Start 03/21/18 at 07:45 Non-Formulary Medication (Inulin/Chromium Picolinate (Fiber Gummies)) 2 ea TIDWMEALS PO ; Start 03/21/18 at 08:00; Status UNV Lactulose (Lactulose) 15 gm DAILYWBKFT PO Last administered on 03/26/18 08:10 ; Start 03/21/18 at 08:00 Magnesium Oxide (Magnesium Oxide) 400 mg BID PO Last administered on 03/26/18 21:07; Start 03/21/18 at 09:00 Miconazole Nitrate (Monistat-Derm) 1 juan PRN BID PRN TP RASH; Start 03/21/18 at 04:15 Multivitamins/ Calcium (Thera-M Plus) 1 tab DAILY PO Last administered on 08:11; Start 03/21/18 at 09:00 Pramipexole Dihydrochloride (miraPEX) 0.5 mg QHS PO Last administered on at 21:06; Start 03/21/18 at 21:00 Pravastatin Sodium (Pravachol) 40 mg DAILY PO Last administered on 03/26/18 08 :10; Start 03/21/18 at 09:00 Trazodone HCl (Desyrel) 25 mg DAILYWSUP PO Last administered on 03/26/18at 17:32 ; Start 03/21/18 at 17:00 Non-Formulary Medication (Trazodone Hcl ) 25 mg PRN DAILY PRN PO AGITATION; Start 03/21/18 at 04:15; Status UNV Trazodone HCl (Desyrel) 75 mg QHS PO Last administered on 03/26/18at 21:07; Start 03/21/18 at 21:00 Divalproex Sodium (Depakote Sprinkles) 250 mg HS PO ; Start 03/21/18 at 21:00; Status UNV Divalproex Sodium (Depakote Sprinkles) 250 mg HS PO ; Start 03/21/18 at 21:00; Status UNV Olanzapine (ZyPREXA) 2.5 mg PRN Q2HR PRN PO ANXIETY / AGITATION; Start at 04:15; Status Cancel Olanzapine (ZyPREXA ZYDIS) 5 mg PRN Q2HR PRN PO PSYCHOSIS; Start 03/21/18 at 04 :15 Quetiapine Fumarate (SEROquel) 25 mg QHS PO Last administered on 03/26/18 21: 07; Start 03/21/18 at 21:00 Docusate Sodium (Colace) 100 mg BID PO Last administered on 03/26/18 21:07; Start 03/21/18 at 21:00 Ferrous Sulfate (Feosol) 650 mg DAILY06 PO Last administered on 03/26/18 04:38 ; Start 03/22/18 at 06:00 Ibuprofen (Motrin) 600 mg PRN BID PRN PO INFLAMMATION Last administered on 03/22 02:26; Start 03/21/18 at 11:45 Metformin HCl (Glucophage Xr) 1,000 mg DAILYWBKFT PO Last administered on 08:11; Start 03/22/18 at 12:00 Diclofenac Sodium (Voltaren) 1 juan TID TP Last administered on 03/22/18 08:01 ; Start 03/21/18 at 14:00; Stop 03/22/18 at 13:01; Status DC Diclofenac Sodium (Voltaren) 1 juan PRN TID PRN TP PAIN; Start 03/22/18 at 13:00 Vitamin D (Vitamin D3) 50,000 unit WEEKLY PO Last administered on 03/22/18at 18: 34; Start 03/22/18 at 13:45 Fluticasone Propionate (Flonase) 2 spray HS NS Last administered on 03/25/18at 20:52; Start 03/24/18 at 21:00 Divalproex Sodium (Depakote Er) 1,000 mg QHS PO Last administered on 03/26/18at 21:06; Start 03/25/18 at 21:00 Nystatin (Nystop) 1 juan BID TP ; Start 03/26/18 at 21:00 Rivastigmine (Exelon) 1 patch DAILY TD ; Start 03/27/18 at 09:00 Memantine (Namenda) 5 mg 0900,1700 PO ; Start 03/27/18 at 17:00 Melatonin 3 mg QHS PO ; Start 03/26/18 at 21:00 Active Scripts Active Reported Keflex (Cephalexin) 500 Mg Capsule 500 Mg PO QID 10 Days Pravastatin Sodium 40 Mg Tablet 40 Mg PO DAILY Carbidopa-Levo Er 50-200 Tab (Carbidopa/Levodopa) 1 Each Tablet.er 1 Each PO HS Sinemet 25-100 Mg Tablet (Carbidopa/Levodopa) 1 Each Tablet 0.5 Tab PO PRN BID PRN Sinemet 25-100 Mg Tablet (Carbidopa/Levodopa) 1 Each Tablet 0.5 Tab PO Q2HR W/A Diazepam 2 Mg Tablet 2 Mg PO PRN Q6HRS PRN Fiber Gummies (Inulin/Chromium Picolinate) 1 Each Tab.chew 2 Ea PO TIDWMEALS Mirapex (Pramipexole Di-Hcl) 0.25 Mg Tablet 0.5 Mg PO HS Linzess (Linaclotide) 145 Mcg Capsule 145 Mcg PO DAILY Trazodone Hcl 50 Mg Tablet 75 Mg PO HS PRN Testosterone Cypionate 100 Mg/1 Ml Vial 150 Mg IM Q10 DAYS Divalproex Sodium 500 Mg Tablet.dr 500 Mg PO HS Hydrocortisone 453.6 Gm Cream..g. 1 Juan TP PRN BID PRN Ferrous Sulfate 325 Mg Tablet 650 Mg PO DAILY Magnesium Oxide 400 Mg Tablet 400 Mg PO BID Miconazole Nitrate 45 Gm Cream.appl 1 Juan TP PRN BID PRN Aspirin 81 Mg Tab.chew 81 Mg PO DAILY Ibuprofen 400 Mg Tablet 600 Mg PO PRN BID PRN Docusate Sodium 100 Mg Capsule 200 Mg PO PRN DAILY PRN Escitalopram Oxalate 20 Mg Tablet 20 Mg PO DAILY Fluticasone Propionate Nasal [place] (Fluticasone Propionate) 16 Gm [place].susp 2 [place] NS DAILY Multivitamins (Multivitamin) 1 Each Tablet 1 Tab PO DAILY Trazodone Hcl 50 Mg Tablet 25 Mg PO DAILYWSUP Trazodone Hcl 50 Mg Tablet 25 Mg PO PRN DAILY PRN Ascorbic Acid 500 Mg Tablet 500 Mg PO DAILY Lactulose 10 Gm/15 Ml Solution 15 Ml PO DAILYWBKFT I have reviewed the current psychotropics carefully including drug interactions. Risk benefit ratio favors no change other than as noted in my dictated progress note. Diagnosis: Problems: (1) Anxiety disorder (2) Lewy body dementia with behavioral disturbance (3) Impulse control disorder (4) Personality disorder in adult SAY PRUETT MD Mar 26, 2018 21:11
--- NOTE | 2018-03-26 23:11 | PN ---
DATE: 03/25/2018 This is a late entry for 03/25/2018 covers elements not covered in my initial note. SUBJECTIVE: I met with the patient in the evening. The patient slept 5-1/2 hours previous evening. He put himself on the floor earlier in the day and this was confirmed on the security camera footage. He was angry that nursing staff did not respond to him immediately to help pick him up. They encouraged him to do some of this himself given the circumstances that got him to the floor. He remains somewhat anxious. Staff are coordinating with [facility] for his deep brain stimulator, which may need replacement. REVIEW OF SYSTEMS: Ambulation impaired. No CV, , pulmonary, eye system symptoms on review. Gait unsteady. MENTAL STATUS EXAM: Oriented to himself and situation. Speech is coherent, rapid at times. He is fairly intense in his presentation. Abstraction fair, computation impaired, unable to do serial 7's. No suicidal or homicidal ideation, remains somewhat paranoid. LABORATORY DATA: Reviewed. IMPRESSION: Major neurocognitive disorder, early Lewy body with delusion, depression, behavioral disturbance; anxiety disorder, unspecified; impulse control disorder, unspecified; bipolar 1 disorder, unspecified. PLAN: From a valproic acid level on the 6th was 11, subtherapeutic on Depakote at 500 mg p.o. at bedtime. We will increase this to 1 gram ER bedtime. Check CBC, CMP, valproic acid level in 3 days. Continue Lexapro, trazodone, along with the p.r.n. Valium for now. Check labs in 3 days and adjust thereafter. MAN Rosa PRUETT MD DR: MARCEL/nano JOB#: [id number] / [id number]
[2018-03-27] MEDS: FERROUS SULFATE 325 MG TABLET. PO SCH (05:55)
[2018-03-27] MEDS: CARBIDOPA/LEVODOPA 25/100MG TABLET PO SCH ×9 (05:55→22:00)
[2018-03-27 06:11] VITALS: BP 146/84
[2018-03-27] MEDS: NYSTATIN TOPICAL POWDER 15GM BOTTLE. TP SCH ×2 (09:00→21:00)
[2018-03-27] MEDS: DOCUSATE SODIUM 100 MG CAPSULE PO SCH ×2 (11:11→20:28)
[2018-03-27] MEDS: ASPIRIN 81 MG TAB.CHEW PO SCH (11:11)
[2018-03-27] MEDS: metFORMIN XR 500 MG TAB.ER.24H PO SCH (11:11)
[2018-03-27] MEDS: ASCORBIC ACID 500 MG TABLET PO SCH (11:11)
[2018-03-27] MEDS: MULTIVITAMIN with MINERAL TABLET. PO SCH (11:11)
[2018-03-27] MEDS: LACTULOSE 20 GM/30 ML SOLUTION. PO SCH (11:12)
[2018-03-27] MEDS: PRAVASTATIN 20 MG TABLET. PO SCH (11:12)
[2018-03-27] MEDS: CITALOPRAM 20 MG TABLET. PO SCH (11:12)
[2018-03-27] MEDS: RIVASTIGMINE 4.6MG PATCH. TD SCH (11:16)
[2018-03-27] MEDS: MAGNESIUM OXIDE 400 MG TABLET PO SCH ×2 (11:16→20:27)
[2018-03-27] MEDS: LINACLOTIDE 145 MCG CAPSULE. PO SCH (11:16)
[2018-03-27] MEDS: diazePAM 2 MG TABLET PO PRN ×2 (12:54→21:14)
[2018-03-27 16:21] VITALS: BP 137/88
[2018-03-27] MEDS: MEMANTINE 5 MG TABLET. PO SCH (17:25)
[2018-03-27] MEDS: traZODone 50 MG TABLET. PO SCH ×2 (17:26→20:28)
[2018-03-27] MEDS: DIVALPROEX ER 500 MG TAB.ER.24H PO SCH (20:27)
[2018-03-27] MEDS: QUEtiapine 25 MG TABLET. PO SCH (20:27)
[2018-03-27] MEDS: PRAMIPEXOLE 0.5 MG TABLET. PO SCH (20:28)
[2018-03-27] MEDS: CARBIDOPA/LEVODOPA CR 50/200MG TABLET.SA PO SCH (20:28)
[2018-03-27] MEDS: MELATONIN 3 MG TABLET PO SCH (20:30)
--- NOTE | 2018-03-27 21:03 | PN ---
DATE: 03/26/2018 PSYCHIATRIC PROGRESS NOTE This late entry 03/26/2018 covers elements not covered in my initial note. SUBJECTIVE: I met with the patient in the evening. The patient slept 2-3/4 hours previous night. He has been demanding in the morning, using his walker in the evening. He walked into the office with social service dropped his pants down or they fell down by themselves, but then he refused to pull them up. He is upset when staff pointed this out to him. REVIEW OF SYSTEMS: Ambulation impaired. No CV, , pulmonary, eye system symptoms on review. MENTAL STATUS EXAM: Oriented to himself and situation. Speech coherent, rapid at times he is quite intense. Abstraction fair, computation impaired, language function intact, attention span short. Mood and affect remains labile. LABORATORY DATA: Reviewed. IMPRESSION: Dementia, Lewy body with delusion, behavioral disturbance. PLAN: Start Exelon patch 4.6 mg a day, Namenda 5 mg twice a day, melatonin 3 mg at bedtime. Continue Depakote, trazodone, Lexapro at current dosage along with Valium p.r.n. for now. SAY PRUETT MD DR: MARCEL/nano JOB#: [id number] / [id number]
--- NOTE | 2018-03-27 21:07 | PDOC ---
Exam Note: Сергей Note: Please also refer to the separate dictated note~for this date of service dictated separately.~Patient seen individually. Discussed the patient with Nursing staff reviewed the chart.~Reviewed interim history and current functioning. Reviewed vital signs,~Labs/ Radiology~and current medications noted below. Continue current treatment with the changes noted in the dictated addendum note Assessment: Vital Signs: Vital Signs Date Time Temp Pulse Resp B/P (MAP) Pulse Ox O2 Delivery O2 Flow Rate FiO2 03/27/18 16:21 97.8 67 16 137/88 (104) 94 03/25/18 05:55 Room Air I&O Intake and Output 03/27/18 07:00 Intake Total 1320 ml Balance 1320 ml Intake Oral 1320 ml Current Medications: Meds: Current Medications Influenza Virus Vaccine (Afluria Trivalent [id number] Syringe) 0.5 ml ONCE ONCE VAX IM Last administered on 03/21/18at 13:58; Start 03/21/18 at 09:00; Stop 03/21/18 at 09:01; Status DC Acetaminophen (Tylenol) 650 mg PRN Q6HRS PRN PO PAIN / TEMP Last administered on 03/24/18at 21:05; Start 03/21/18 at 04:15 Multi-Ingredient Ointment (Analgesic [place]) 1 juan PRN QID PRN TP MUSCLE PAIN; Start 03/21/18 at 04:15 Al Hydroxide/Mg Hydroxide (Mylanta Plus Xs) 15 ml PRN AFTMEALHC PRN PO DYSPEPSIA; Start 03/21/18 at 04:15 Magnesium Hydroxide (Milk Of Magnesia) 2,400 mg PRN QHS PRN PO CONSTIPATION; Start 03/21/18 at 04:15 Info (FLU VACCINE per PROTOCOL) 1 ea PRN 1X PRN MC PER PROTOCOL; Start at 04:30; Status Cancel Ascorbic Acid (Vitamin C) 500 mg DAILY PO Last administered on 03/27/18at 11:11 ; Start 03/21/18 at 09:00 Carbidopa/Levodopa (Sinemet 25/100) 0.5 tab PRN BID PRN PO Tremors; Start 03/21 at 04:15; Status Cancel Carbidopa/Levodopa (Sinemet 25/100) 0.5 tab Q2HR W/A PO Last administered on 03/27/18at 20:30; Start 03/21/18 at 06:00 Ferrous Sulfate (Feosol) 650 mg DAILY PO ; Start 03/21/18 at 09:00; Stop at 11:35; Status DC Ibuprofen (Motrin) 600 mg PRN BID PRN PO PAIN; Start 03/21/18 at 04:15; Stop 03/21/18 at 11:44; Status DC Linaclotide (Linzess) 145 mcg DAILY PO Last administered on 03/27/18at 11:16; Start 03/21/18 at 09:00 Aspirin (Children'S Aspirin) 81 mg DAILYWBKFT PO Last administered on 11:11; Start 03/21/18 at 08:00 Carbidopa/Levodopa (Sinemet Cr) 1 tab.sa HS PO Last administered on 03/27/18 20:28; Start 03/21/18 at 21:00 Diazepam (Valium) 2 mg PRN Q6HRS PRN PO ANXIETY / AGITATION Last administered on 03/27/18at 12:54; Start 03/21/18 at 04:15 Divalproex Sodium (Depakote Er) 500 mg QHS PO Last administered on 03/24/18 20 :17; Start 03/22/18 at 21:00; Stop 03/25/18 at 16:52; Status DC Docusate Sodium (Colace) 200 mg PRN DAILY PRN PO CONSTIPATION; Start 03/21/18 at 04:15; Stop 03/21/18 at 11:34; Status DC Citalopram Hydrobromide (CeleXA) 40 mg DAILY PO Last administered on at 11:12; Start 03/21/18 at 09:00 Fluticasone Propionate (Flonase) 2 spray DAILY NS Last administered on at 08:03; Start 03/21/18 at 09:00; Stop 03/24/18 at 10:03; Status DC Hydrocortisone (Cortaid) 1 juan PRN BID PRN TP ITCH/RASH Last administered on at 10:47; Start 03/21/18 at 07:45 Non-Formulary Medication (Inulin/Chromium Picolinate (Fiber Gummies)) 2 ea TIDWMEALS PO ; Start 03/21/18 at 08:00; Status UNV Lactulose (Lactulose) 15 gm DAILYWBKFT PO Last administered on 03/27/18 11:12 ; Start 03/21/18 at 08:00 Magnesium Oxide (Magnesium Oxide) 400 mg BID PO Last administered on 20:27; Start 03/21/18 at 09:00 Miconazole Nitrate (Monistat-Derm) 1 juan PRN BID PRN TP RASH; Start 03/21/18 at 04:15 Multivitamins/ Calcium (Thera-M Plus) 1 tab DAILY PO Last administered on 03/27 11:11; Start 03/21/18 at 09:00 Pramipexole Dihydrochloride (miraPEX) 0.5 mg QHS PO Last administered on 20:28; Start 03/21/18 at 21:00 Pravastatin Sodium (Pravachol) 40 mg DAILY PO Last administered on 03/27/18 11:12; Start 03/21/18 at 09:00 Trazodone HCl (Desyrel) 25 mg DAILYWSUP PO Last administered on 03/27/18 17: 26; Start 03/21/18 at 17:00 Non-Formulary Medication (Trazodone Hcl ) 25 mg PRN DAILY PRN PO AGITATION; Start 03/21/18 at 04:15; Status UNV Trazodone HCl (Desyrel) 75 mg QHS PO Last administered on 03/27/18 20:28; Start 03/21/18 at 21:00 Divalproex Sodium (Depakote Sprinkles) 250 mg HS PO ; Start 03/21/18 at 21:00; Status UNV Divalproex Sodium (Depakote Sprinkles) 250 mg HS PO ; Start 03/21/18 at 21:00; Status UNV Olanzapine (ZyPREXA) 2.5 mg PRN Q2HR PRN PO ANXIETY / AGITATION; Start at 04:15; Status Cancel Olanzapine (ZyPREXA ZYDIS) 5 mg PRN Q2HR PRN PO PSYCHOSIS; Start 03/21/18 at 04 :15 Quetiapine Fumarate (SEROquel) 25 mg QHS PO Last administered on 03/27/18 20: 27; Start 03/21/18 at 21:00 Docusate Sodium (Colace) 100 mg BID PO Last administered on 03/27/18 20:28; Start 03/21/18 at 21:00 Ferrous Sulfate (Feosol) 650 mg DAILY06 PO Last administered on 03/27/18 05: 55; Start 03/22/18 at 06:00 Ibuprofen (Motrin) 600 mg PRN BID PRN PO INFLAMMATION Last administered on 03/22 02:26; Start 03/21/18 at 11:45 Metformin HCl (Glucophage Xr) 1,000 mg DAILYWBKFT PO Last administered on 03/27 11:11; Start 03/22/18 at 12:00 Diclofenac Sodium (Voltaren) 1 juan TID TP Last administered on 03/22/18 08:01 ; Start 03/21/18 at 14:00; Stop 03/22/18 at 13:01; Status DC Diclofenac Sodium (Voltaren) 1 juan PRN TID PRN TP PAIN; Start 03/22/18 at 13:00 Vitamin D (Vitamin D3) 50,000 unit WEEKLY PO Last administered on 03/22/18 18: 34; Start 03/22/18 at 13:45 Fluticasone Propionate (Flonase) 2 spray HS NS Last administered on 03/25/18 20:52; Start 03/24/18 at 21:00 Divalproex Sodium (Depakote Er) 1,000 mg QHS PO Last administered on 20:27; Start 03/25/18 at 21:00 Nystatin (Nystop) 1 juan BID TP Last administered on 03/27/18 09:00; Start at 21:00 Rivastigmine (Exelon) 1 patch DAILY TD Last administered on 03/27/18 11:16; Start 03/27/18 at 09:00 Memantine (Namenda) 5 mg 0900,1700 PO Last administered on 03/27/18 17:25; Start 03/27/18 at 17:00 Melatonin 3 mg QHS PO Last administered on 03/27/18 20:30; Start 03/26/18 at 21:00 Active Scripts Active Reported Keflex (Cephalexin) 500 Mg Capsule 500 Mg PO QID 10 Days Pravastatin Sodium 40 Mg Tablet 40 Mg PO DAILY Carbidopa-Levo Er 50-200 Tab (Carbidopa/Levodopa) 1 Each Tablet.er 1 Each PO HS Sinemet 25-100 Mg Tablet (Carbidopa/Levodopa) 1 Each Tablet 0.5 Tab PO PRN BID PRN Sinemet 25-100 Mg Tablet (Carbidopa/Levodopa) 1 Each Tablet 0.5 Tab PO Q2HR W/A Diazepam 2 Mg Tablet 2 Mg PO PRN Q6HRS PRN Fiber Gummies (Inulin/Chromium Picolinate) 1 Each Tab.chew 2 Ea PO TIDWMEALS Mirapex (Pramipexole Di-Hcl) 0.25 Mg Tablet 0.5 Mg PO HS Linzess (Linaclotide) 145 Mcg Capsule 145 Mcg PO DAILY Trazodone Hcl 50 Mg Tablet 75 Mg PO HS PRN Testosterone Cypionate 100 Mg/1 Ml Vial 150 Mg IM Q10 DAYS Divalproex Sodium 500 Mg Tablet.dr 500 Mg PO HS Hydrocortisone 453.6 Gm Cream..g. 1 Juan TP PRN BID PRN Ferrous Sulfate 325 Mg Tablet 650 Mg PO DAILY Magnesium Oxide 400 Mg Tablet 400 Mg PO BID Miconazole Nitrate 45 Gm Cream.appl 1 Juan TP PRN BID PRN Aspirin 81 Mg Tab.chew 81 Mg PO DAILY Ibuprofen 400 Mg Tablet 600 Mg PO PRN BID PRN Docusate Sodium 100 Mg Capsule 200 Mg PO PRN DAILY PRN Escitalopram Oxalate 20 Mg Tablet 20 Mg PO DAILY Fluticasone Propionate Nasal [place] (Fluticasone Propionate) 16 Gm [place].susp 2 [place] NS DAILY Multivitamins (Multivitamin) 1 Each Tablet 1 Tab PO DAILY Trazodone Hcl 50 Mg Tablet 25 Mg PO DAILYWSUP Trazodone Hcl 50 Mg Tablet 25 Mg PO PRN DAILY PRN Ascorbic Acid 500 Mg Tablet 500 Mg PO DAILY Lactulose 10 Gm/15 Ml Solution 15 Ml PO DAILYWBKFT I have reviewed the current psychotropics carefully including drug interactions. Risk benefit ratio favors no change other than as noted in my dictated progress note. Diagnosis: Problems: (1) Anxiety disorder (2) Lewy body dementia with behavioral disturbance (3) Impulse control disorder (4) Personality disorder in adult SAY PRUETT MD Mar 27, 2018 21:07
[2018-03-27] MEDS: FLUTICASONE 50MCG/NASAL SPRAY 16GM BOTTLE. NS SCH (21:14)
[2018-03-28] MEDS: FERROUS SULFATE 325 MG TABLET. PO SCH ×2 (06:17→08:18)
[2018-03-28] MEDS: CARBIDOPA/LEVODOPA 25/100MG TABLET PO SCH ×8 (06:17→22:00)
[2018-03-28 06:24] VITALS: BP 125/78
[2018-03-28 07:23] LABS: BASO % 1 % (0-3); EOS # 0.2 x10^3/uL (0.0-0.7); EOS % 4 % (0-3); HEMATOCRIT 36.9 % (39.0-53.0); HEMOGLOBIN 12.5 g/dL (13.0-17.5); LYMPH # 1.7 x10^3/uL (1.0-4.8); LYMPH % 27 % (24-48); MEAN CORPUSCULAR HEMOGLOBIN 31 pg (25-35); MEAN CORPUSCULAR HGB CONC 34 g/dL (31-37); MEAN CORPUSCULAR VOLUME 90 fL (79-100); MONO # 0.8 x10^3/uL (0.0-1.1); MONO % 12 % (0-9); NEUT # 3.7 x10^3uL (1.8-7.7); NEUT % 57 % (31-73); PLATELET COUNT 187 x10^3/uL (140-400); RED BLOOD COUNT 4.09 x10^6/uL (4.30-5.70); RED CELL DISTRIBUTION WIDTH 14.5 % (11.5-14.5); WHITE BLOOD COUNT 6.5 x10^3/uL (4.0-11.0)
[2018-03-28 07:40] LABS: ALBUMIN/GLOBULIN RATIO 1.1 (1.0-1.7); ALK PHOS 58 U/L (46-116); ALT (SGPT) 12 U/L (16-63); ANION GAP 2 (6-14); AST (SGOT) 13 U/L (15-37); BLOOD UREA NITROGEN 18 mg/dL (8-26); BUN/CREATININE RATIO 18 (6-20); CALCIUM 8.8 mg/dL (8.5-10.1); CARBON DIOXIDE 35 mmol/L (21-32); CHLORIDE 104 mmol/L (98-107); GFR 74.8; GLUCOSE 91 mg/dL (70-99); POTASSIUM 4.2 mmol/L (3.5-5.1); SODIUM 141 mmol/L (136-145); TOTAL BILIRUBIN 0.9 mg/dL (0.2-1.0); TOTAL PROTEIN 5.8 g/dL (6.4-8.2)
[2018-03-28 07:45] LABS: VAL ACID 42 mcg/mL (50-100)
[2018-03-28] MEDS: MULTIVITAMIN with MINERAL TABLET. PO SCH (08:18)
[2018-03-28] MEDS: ASCORBIC ACID 500 MG TABLET PO SCH (08:23)
[2018-03-28] MEDS: MAGNESIUM OXIDE 400 MG TABLET PO SCH ×2 (08:23→19:40)
[2018-03-28] MEDS: RIVASTIGMINE 4.6MG PATCH. TD SCH (08:23)
[2018-03-28] MEDS: PRAVASTATIN 20 MG TABLET. PO SCH (08:24)
[2018-03-28] MEDS: DOCUSATE SODIUM 100 MG CAPSULE PO SCH ×2 (08:24→19:38)
[2018-03-28] MEDS: ASPIRIN 81 MG TAB.CHEW PO SCH (08:24)
[2018-03-28] MEDS: CITALOPRAM 20 MG TABLET. PO SCH (08:24)
[2018-03-28] MEDS: metFORMIN XR 500 MG TAB.ER.24H PO SCH (08:24)
[2018-03-28] MEDS: MEMANTINE 5 MG TABLET. PO SCH ×2 (08:24→17:48)
[2018-03-28] MEDS: LACTULOSE 20 GM/30 ML SOLUTION. PO SCH (08:25)
[2018-03-28] MEDS: NYSTATIN TOPICAL POWDER 15GM BOTTLE. TP SCH ×2 (08:38→19:43)
[2018-03-28] MEDS: LINACLOTIDE 145 MCG CAPSULE. PO SCH (08:38)
[2018-03-28 16:44] VITALS: BP 145/70
[2018-03-28] MEDS: traZODone 50 MG TABLET. PO SCH ×2 (17:48→19:38)
[2018-03-28] MEDS: CARBIDOPA/LEVODOPA CR 50/200MG TABLET.SA PO SCH (19:38)
[2018-03-28] MEDS: PRAMIPEXOLE 0.5 MG TABLET. PO SCH (19:38)
[2018-03-28] MEDS: DIVALPROEX ER 500 MG TAB.ER.24H PO SCH (19:39)
[2018-03-28] MEDS: MELATONIN 3 MG TABLET PO SCH (19:40)
[2018-03-28] MEDS: QUEtiapine 25 MG TABLET. PO SCH (19:40)
[2018-03-28] MEDS: FLUTICASONE 50MCG/NASAL SPRAY 16GM BOTTLE. NS SCH (19:42)
--- NOTE | 2018-03-28 20:53 | PDOC ---
Exam Note: Сергей Note: Please also refer to the separate dictated note~for this date of service dictated separately.~Patient seen individually. Discussed the patient with Nursing staff reviewed the chart.~Reviewed interim history and current functioning. Reviewed vital signs,~Labs/ Radiology~and current medications noted below. Continue current treatment with the changes noted in the dictated addendum note Assessment: Vital Signs: Vital Signs Date Time Temp Pulse Resp B/P (MAP) Pulse Ox O2 Delivery O2 Flow Rate FiO2 03/28/18 16:44 98.1 67 19 145/70 (95) 94 Room Air I&O Intake and Output 03/28/18 07:00 Intake Total 1040 ml Balance 1040 ml Intake Oral 1040 ml # Voids 1 Labs: Laboratory Tests Test 03/28/18 06:38 White Blood Count 6.5 x10^3/uL (4.0-11.0) Red Blood Count 4.09 x10^6/uL (4.30-5.70) L Hemoglobin 12.5 g/dL (13.0-17.5) L Hematocrit 36.9 % (39.0-53.0) L Mean Corpuscular Volume 90 fL (79-100) Mean Corpuscular Hemoglobin 31 pg (25-35) Mean Corpuscular Hemoglobin Concent 34 g/dL (31-37) Red Cell Distribution Width 14.5 % (11.5-14.5) Platelet Count 187 x10^3/uL (140-400) Neutrophils (%) (Auto) 57 % (31-73) Lymphocytes (%) (Auto) 27 % (24-48) Monocytes (%) (Auto) 12 % (0-9) H Eosinophils (%) (Auto) 4 % (0-3) H Basophils (%) (Auto) 1 % (0-3) Neutrophils # (Auto) 3.7 x10^3uL (1.8-7.7) Lymphocytes # (Auto) 1.7 x10^3/uL (1.0-4.8) Monocytes # (Auto) 0.8 x10^3/uL (0.0-1.1) Eosinophils # (Auto) 0.2 x10^3/uL (0.0-0.7) Basophils # (Auto) 0.0 x10^3/uL (0.0-0.2) Sodium Level 141 mmol/L (136-145) Potassium Level 4.2 mmol/L (3.5-5.1) Chloride Level 104 mmol/L (98-107) Carbon Dioxide Level 35 mmol/L (21-32) H Anion Gap 2 (6-14) L Blood Urea Nitrogen 18 mg/dL (8-26) Creatinine 1.0 mg/dL (0.7-1.3) Estimated GFR (Cockcroft-Gault) 74.8 BUN/Creatinine Ratio 18 (6-20) Glucose Level 91 mg/dL (70-99) Calcium Level 8.8 mg/dL (8.5-10.1) Total Bilirubin 0.9 mg/dL (0.2-1.0) Aspartate Amino Transferase (AST) 13 U/L (15-37) L Alanine Aminotransferase (ALT) 12 U/L (16-63) L Alkaline Phosphatase 58 U/L (46-116) Total Protein 5.8 g/dL (6.4-8.2) L Albumin 3.0 g/dL (3.4-5.0) L Albumin/Globulin Ratio 1.1 (1.0-1.7) Valproic Acid Level 42 mcg/mL (50-100) L Valproic Acid Last Dose Date 03/27/18 Valproic Acid Last Dose Time 2100 Current Medications: Meds: Current Medications Influenza Virus Vaccine (Afluria Trivalent [id number] Syringe) 0.5 ml ONCE ONCE VAX IM Last administered on 03/21/18at 13:58; Start 03/21/18 at 09:00; Stop 03/21/18 at 09:01; Status DC Acetaminophen (Tylenol) 650 mg PRN Q6HRS PRN PO PAIN / TEMP Last administered on 03/24/18at 21:05; Start 03/21/18 at 04:15 Multi-Ingredient Ointment (Analgesic [place]) 1 juan PRN QID PRN TP MUSCLE PAIN; Start 03/21/18 at 04:15 Al Hydroxide/Mg Hydroxide (Mylanta Plus Xs) 15 ml PRN AFTMEALHC PRN PO DYSPEPSIA; Start 03/21/18 at 04:15 Magnesium Hydroxide (Milk Of Magnesia) 2,400 mg PRN QHS PRN PO CONSTIPATION; Start 03/21/18 at 04:15 Info (FLU VACCINE per PROTOCOL) 1 ea PRN 1X PRN MC PER PROTOCOL; Start at 04:30; Status Cancel Ascorbic Acid (Vitamin C) 500 mg DAILY PO Last administered on 03/28/18at 08:23 ; Start 03/21/18 at 09:00 Carbidopa/Levodopa (Sinemet 25/100) 0.5 tab PRN BID PRN PO Tremors; Start 03/21 at 04:15; Status Cancel Carbidopa/Levodopa (Sinemet 25/100) 0.5 tab Q2HR W/A PO Last administered on 03/28/18 19:42; Start 03/21/18 at 06:00 Ferrous Sulfate (Feosol) 650 mg DAILY PO ; Start 03/21/18 at 09:00; Stop at 11:35; Status DC Ibuprofen (Motrin) 600 mg PRN BID PRN PO PAIN; Start 03/21/18 at 04:15; Stop 03/21/18 at 11:44; Status DC Linaclotide (Linzess) 145 mcg DAILY PO Last administered on 03/28/18at 08:38; Start 03/21/18 at 09:00 Aspirin (Children'S Aspirin) 81 mg DAILYWBKFT PO Last administered on 08:24; Start 03/21/18 at 08:00 Carbidopa/Levodopa (Sinemet Cr) 1 tab.sa HS PO Last administered on 03/28/18 19:38; Start 03/21/18 at 21:00 Diazepam (Valium) 2 mg PRN Q6HRS PRN PO ANXIETY / AGITATION Last administered on 03/27/18at 21:14; Start 03/21/18 at 04:15 Divalproex Sodium (Depakote Er) 500 mg QHS PO Last administered on 03/24/18 20 :17; Start 03/22/18 at 21:00; Stop 03/25/18 at 16:52; Status DC Docusate Sodium (Colace) 200 mg PRN DAILY PRN PO CONSTIPATION; Start 03/21/18 at 04:15; Stop 03/21/18 at 11:34; Status DC Citalopram Hydrobromide (CeleXA) 40 mg DAILY PO Last administered on at 08:24; Start 03/21/18 at 09:00 Fluticasone Propionate (Flonase) 2 spray DAILY NS Last administered on at 08:03; Start 03/21/18 at 09:00; Stop 03/24/18 at 10:03; Status DC Hydrocortisone (Cortaid) 1 juan PRN BID PRN TP ITCH/RASH Last administered on at 10:47; Start 03/21/18 at 07:45 Non-Formulary Medication (Inulin/Chromium Picolinate (Fiber Gummies)) 2 ea TIDWMEALS PO ; Start 03/21/18 at 08:00; Status UNV Lactulose (Lactulose) 15 gm DAILYWBKFT PO Last administered on 03/28/18at 08:25 ; Start 03/21/18 at 08:00 Magnesium Oxide (Magnesium Oxide) 400 mg BID PO Last administered on at 19:40; Start 03/21/18 at 09:00 Miconazole Nitrate (Monistat-Derm) 1 juan PRN BID PRN TP RASH; Start 03/21/18 at 04:15 Multivitamins/ Calcium (Thera-M Plus) 1 tab DAILY PO Last administered on 03/28at 08:18; Start 03/21/18 at 09:00 Pramipexole Dihydrochloride (miraPEX) 0.5 mg QHS PO Last administered on at 19:38; Start 03/21/18 at 21:00 Pravastatin Sodium (Pravachol) 40 mg DAILY PO Last administered on 03/28/18at 08:24; Start 03/21/18 at 09:00 Trazodone HCl (Desyrel) 25 mg DAILYWSUP PO Last administered on 03/28/18at 17: 48; Start 03/21/18 at 17:00 Non-Formulary Medication (Trazodone Hcl ) 25 mg PRN DAILY PRN PO AGITATION; Start 03/21/18 at 04:15; Status UNV Trazodone HCl (Desyrel) 75 mg QHS PO Last administered on 03/28/18at 19:38; Start 03/21/18 at 21:00 Divalproex Sodium (Depakote Sprinkles) 250 mg HS PO ; Start 03/21/18 at 21:00; Status UNV Divalproex Sodium (Depakote Sprinkles) 250 mg HS PO ; Start 03/21/18 at 21:00; Status UNV Olanzapine (ZyPREXA) 2.5 mg PRN Q2HR PRN PO ANXIETY / AGITATION; Start at 04:15; Status Cancel Olanzapine (ZyPREXA ZYDIS) 5 mg PRN Q2HR PRN PO PSYCHOSIS; Start 03/21/18 at 04 :15 Quetiapine Fumarate (SEROquel) 25 mg QHS PO Last administered on 03/28/18 19: 40; Start 03/21/18 at 21:00 Docusate Sodium (Colace) 100 mg BID PO Last administered on 03/28/18 19:38; Start 03/21/18 at 21:00 Ferrous Sulfate (Feosol) 650 mg DAILY06 PO Last administered on 03/28/18 08: 18; Start 03/22/18 at 06:00 Ibuprofen (Motrin) 600 mg PRN BID PRN PO INFLAMMATION Last administered on 03/22 02:26; Start 03/21/18 at 11:45 Metformin HCl (Glucophage Xr) 1,000 mg DAILYWBKFT PO Last administered on 03/28 08:24; Start 03/22/18 at 12:00 Diclofenac Sodium (Voltaren) 1 juan TID TP Last administered on 03/22/18 08:01 ; Start 03/21/18 at 14:00; Stop 03/22/18 at 13:01; Status DC Diclofenac Sodium (Voltaren) 1 juan PRN TID PRN TP PAIN; Start 03/22/18 at 13:00 Vitamin D (Vitamin D3) 50,000 unit WEEKLY PO Last administered on 03/22/18 18: 34; Start 03/22/18 at 13:45 Fluticasone Propionate (Flonase) 2 spray HS NS Last administered on 03/28/18 19:42; Start 03/24/18 at 21:00 Divalproex Sodium (Depakote Er) 1,000 mg QHS PO Last administered on 19:39; Start 03/25/18 at 21:00 Nystatin (Nystop) 1 juan BID TP Last administered on 10/11/18at 08:38; Start at 21:00 Rivastigmine (Exelon) 1 patch DAILY TD Last administered on 03/28/18at 08:23; Start 03/27/18 at 09:00 Memantine (Namenda) 5 mg 0900,1700 PO Last administered on 03/28/18at 17:48; Start 03/27/18 at 17:00 Melatonin 3 mg QHS PO Last administered on 03/28/18at 19:40; Start 03/26/18 at 21:00 Active Scripts Active Reported Keflex (Cephalexin) 500 Mg Capsule 500 Mg PO QID 10 Days Pravastatin Sodium 40 Mg Tablet 40 Mg PO DAILY Carbidopa-Levo Er 50-200 Tab (Carbidopa/Levodopa) 1 Each Tablet.er 1 Each PO HS Sinemet 25-100 Mg Tablet (Carbidopa/Levodopa) 1 Each Tablet 0.5 Tab PO PRN BID PRN Sinemet 25-100 Mg Tablet (Carbidopa/Levodopa) 1 Each Tablet 0.5 Tab PO Q2HR W/A Diazepam 2 Mg Tablet 2 Mg PO PRN Q6HRS PRN Fiber Gummies (Inulin/Chromium Picolinate) 1 Each Tab.chew 2 Ea PO TIDWMEALS Mirapex (Pramipexole Di-Hcl) 0.25 Mg Tablet 0.5 Mg PO HS Linzess (Linaclotide) 145 Mcg Capsule 145 Mcg PO DAILY Trazodone Hcl 50 Mg Tablet 75 Mg PO HS PRN Testosterone Cypionate 100 Mg/1 Ml Vial 150 Mg IM Q10 DAYS Divalproex Sodium 500 Mg Tablet.dr 500 Mg PO HS Hydrocortisone 453.6 Gm Cream..g. 1 Juan TP PRN BID PRN Ferrous Sulfate 325 Mg Tablet 650 Mg PO DAILY Magnesium Oxide 400 Mg Tablet 400 Mg PO BID Miconazole Nitrate 45 Gm Cream.appl 1 Juan TP PRN BID PRN Aspirin 81 Mg Tab.chew 81 Mg PO DAILY Ibuprofen 400 Mg Tablet 600 Mg PO PRN BID PRN Docusate Sodium 100 Mg Capsule 200 Mg PO PRN DAILY PRN Escitalopram Oxalate 20 Mg Tablet 20 Mg PO DAILY Fluticasone Propionate Nasal [place] (Fluticasone Propionate) 16 Gm [place].susp 2 [place] NS DAILY Multivitamins (Multivitamin) 1 Each Tablet 1 Tab PO DAILY Trazodone Hcl 50 Mg Tablet 25 Mg PO DAILYWSUP Trazodone Hcl 50 Mg Tablet 25 Mg PO PRN DAILY PRN Ascorbic Acid 500 Mg Tablet 500 Mg PO DAILY Lactulose 10 Gm/15 Ml Solution 15 Ml PO DAILYWBKFT I have reviewed the current psychotropics carefully including drug interactions. Risk benefit ratio favors no change other than as noted in my dictated progress note. Diagnosis: Problems: (1) Anxiety disorder (2) Lewy body dementia with behavioral disturbance (3) Impulse control disorder (4) Personality disorder in adult SAY PRUETT MD Mar 28, 2018 20:53
[2018-03-29] MEDS: CARBIDOPA/LEVODOPA 25/100MG TABLET PO SCH ×9 (05:27→22:00)
[2018-03-29 06:17] VITALS: BP 129/70
[2018-03-29] MEDS: LACTULOSE 20 GM/30 ML SOLUTION. PO SCH (09:31)
[2018-03-29] MEDS: metFORMIN XR 500 MG TAB.ER.24H PO SCH (09:31)
[2018-03-29] MEDS: MULTIVITAMIN with MINERAL TABLET. PO SCH (09:31)
[2018-03-29] MEDS: ASCORBIC ACID 500 MG TABLET PO SCH (09:32)
[2018-03-29] MEDS: PRAVASTATIN 20 MG TABLET. PO SCH (09:32)
[2018-03-29] MEDS: MAGNESIUM OXIDE 400 MG TABLET PO SCH ×2 (09:32→19:35)
[2018-03-29] MEDS: DOCUSATE SODIUM 100 MG CAPSULE PO SCH ×2 (09:32→19:35)
[2018-03-29] MEDS: NYSTATIN TOPICAL POWDER 15GM BOTTLE. TP SCH ×2 (09:32→19:38)
[2018-03-29] MEDS: MEMANTINE 5 MG TABLET. PO SCH ×2 (09:32→18:35)
[2018-03-29] MEDS: ASPIRIN 81 MG TAB.CHEW PO SCH (09:32)
[2018-03-29] MEDS: CITALOPRAM 20 MG TABLET. PO SCH (09:32)
[2018-03-29] MEDS: RIVASTIGMINE 4.6MG PATCH. TD SCH (09:32)
[2018-03-29] MEDS: CHOLECALCIFEROL (VITAMIN D3) 50,000 UNIT CAPSULE PO SCH (09:35)
[2018-03-29] MEDS: LINACLOTIDE 145 MCG CAPSULE. PO SCH (09:36)
[2018-03-29 15:54] VITALS: BP 134/91
[2018-03-29] MEDS: traZODone 50 MG TABLET. PO SCH ×2 (18:35→19:38)
[2018-03-29] MEDS: PRAMIPEXOLE 0.5 MG TABLET. PO SCH (19:34)
[2018-03-29] MEDS: QUEtiapine 25 MG TABLET. PO SCH (19:35)
[2018-03-29] MEDS: DIVALPROEX ER 500 MG TAB.ER.24H PO SCH (19:35)
[2018-03-29] MEDS: CARBIDOPA/LEVODOPA CR 50/200MG TABLET.SA PO SCH (19:37)
[2018-03-29] MEDS: MELATONIN 3 MG TABLET PO SCH (19:37)
[2018-03-29] MEDS: diazePAM 2 MG TABLET PO PRN (20:22)
--- NOTE | 2018-03-29 20:56 | PDOC ---
Exam Note: Сергей Note: Please also refer to the separate dictated note~for this date of service dictated separately.~Patient seen individually. Discussed the patient with Nursing staff reviewed the chart.~Reviewed interim history and current functioning. Reviewed vital signs,~Labs/ Radiology~and current medications noted below. Continue current treatment with the changes noted in the dictated addendum note Assessment: Vital Signs: Vital Signs Date Time Temp Pulse Resp B/P (MAP) Pulse Ox O2 Delivery O2 Flow Rate FiO2 03/29/18 15:54 97.2 64 18 134/91 (105) 95 Room Air I&O Intake and Output 03/29/18 07:00 Intake Total 1440 ml Balance 1440 ml Intake Oral 1440 ml Current Medications: Meds: Current Medications Influenza Virus Vaccine (Afluria Trivalent [id number] Syringe) 0.5 ml ONCE ONCE VAX IM Last administered on 03/21/18at 13:58; Start 03/21/18 at 09:00; Stop 03/21/18 at 09:01; Status DC Acetaminophen (Tylenol) 650 mg PRN Q6HRS PRN PO PAIN / TEMP Last administered on 03/24/18at 21:05; Start 03/21/18 at 04:15 Multi-Ingredient Ointment (Analgesic [place]) 1 juan PRN QID PRN TP MUSCLE PAIN; Start 03/21/18 at 04:15 Al Hydroxide/Mg Hydroxide (Mylanta Plus Xs) 15 ml PRN AFTMEALHC PRN PO DYSPEPSIA; Start 03/21/18 at 04:15 Magnesium Hydroxide (Milk Of Magnesia) 2,400 mg PRN QHS PRN PO CONSTIPATION; Start 03/21/18 at 04:15 Info (FLU VACCINE per PROTOCOL) 1 ea PRN 1X PRN MC PER PROTOCOL; Start at 04:30; Status Cancel Ascorbic Acid (Vitamin C) 500 mg DAILY PO Last administered on 03/29/18at 09:32 ; Start 03/21/18 at 09:00 Carbidopa/Levodopa (Sinemet 25/100) 0.5 tab PRN BID PRN PO Tremors; Start 03/21 at 04:15; Status Cancel Carbidopa/Levodopa (Sinemet 25/100) 0.5 tab Q2HR W/A PO Last administered on 03/29/18at 19:36; Start 03/21/18 at 06:00 Ferrous Sulfate (Feosol) 650 mg DAILY PO ; Start 03/21/18 at 09:00; Stop at 11:35; Status DC Ibuprofen (Motrin) 600 mg PRN BID PRN PO PAIN; Start 03/21/18 at 04:15; Stop 03/21/18 at 11:44; Status DC Linaclotide (Linzess) 145 mcg DAILY PO Last administered on 03/29/18at 09:36; Start 03/21/18 at 09:00 Aspirin (Children'S Aspirin) 81 mg DAILYWBKFT PO Last administered on 09:32; Start 03/21/18 at 08:00 Carbidopa/Levodopa (Sinemet Cr) 1 tab.sa HS PO Last administered on 03/29/18at 19:37; Start 03/21/18 at 21:00 Diazepam (Valium) 2 mg PRN Q6HRS PRN PO ANXIETY / AGITATION Last administered on 03/29/18at 20:22; Start 03/21/18 at 04:15 Divalproex Sodium (Depakote Er) 500 mg QHS PO Last administered on 03/24/18at 20 :17; Start 03/22/18 at 21:00; Stop 03/25/18 at 16:52; Status DC Docusate Sodium (Colace) 200 mg PRN DAILY PRN PO CONSTIPATION; Start 03/21/18 at 04:15; Stop 03/21/18 at 11:34; Status DC Citalopram Hydrobromide (CeleXA) 40 mg DAILY PO Last administered on at 09:32; Start 03/21/18 at 09:00 Fluticasone Propionate (Flonase) 2 spray DAILY NS Last administered on at 08:03; Start 03/21/18 at 09:00; Stop 03/24/18 at 10:03; Status DC Hydrocortisone (Cortaid) 1 juan PRN BID PRN TP ITCH/RASH Last administered on at 10:47; Start 03/21/18 at 07:45 Non-Formulary Medication (Inulin/Chromium Picolinate (Fiber Gummies)) 2 ea TIDWMEALS PO ; Start 03/21/18 at 08:00; Status UNV Lactulose (Lactulose) 15 gm DAILYWBKFT PO Last administered on 03/29/18 09:31 ; Start 03/21/18 at 08:00 Magnesium Oxide (Magnesium Oxide) 400 mg BID PO Last administered on 19:35; Start 03/21/18 at 09:00 Miconazole Nitrate (Monistat-Derm) 1 juan PRN BID PRN TP RASH; Start 03/21/18 at 04:15 Multivitamins/ Calcium (Thera-M Plus) 1 tab DAILY PO Last administered on 03/29 09:31; Start 03/21/18 at 09:00 Pramipexole Dihydrochloride (miraPEX) 0.5 mg QHS PO Last administered on 19:34; Start 03/21/18 at 21:00 Pravastatin Sodium (Pravachol) 40 mg DAILY PO Last administered on 03/29/18 09:32; Start 03/21/18 at 09:00 Trazodone HCl (Desyrel) 25 mg DAILYWSUP PO Last administered on 03/29/18 18: 35; Start 03/21/18 at 17:00 Non-Formulary Medication (Trazodone Hcl ) 25 mg PRN DAILY PRN PO AGITATION; Start 03/21/18 at 04:15; Status UNV Trazodone HCl (Desyrel) 75 mg QHS PO Last administered on 03/29/18 19:38; Start 03/21/18 at 21:00 Divalproex Sodium (Depakote Sprinkles) 250 mg HS PO ; Start 03/21/18 at 21:00; Status UNV Divalproex Sodium (Depakote Sprinkles) 250 mg HS PO ; Start 03/21/18 at 21:00; Status UNV Olanzapine (ZyPREXA) 2.5 mg PRN Q2HR PRN PO ANXIETY / AGITATION; Start at 04:15; Status Cancel Olanzapine (ZyPREXA ZYDIS) 5 mg PRN Q2HR PRN PO PSYCHOSIS; Start 03/21/18 at 04 :15 Quetiapine Fumarate (SEROquel) 25 mg QHS PO Last administered on 03/29/18 19: 35; Start 03/21/18 at 21:00 Docusate Sodium (Colace) 100 mg BID PO Last administered on 03/29/18 19:35; Start 03/21/18 at 21:00 Ferrous Sulfate (Feosol) 650 mg DAILY06 PO Last administered on 03/28/18 08: 18; Start 03/22/18 at 06:00 Ibuprofen (Motrin) 600 mg PRN BID PRN PO INFLAMMATION Last administered on 03/22 02:26; Start 03/21/18 at 11:45 Metformin HCl (Glucophage Xr) 1,000 mg DAILYWBKFT PO Last administered on 03/29 09:31; Start 03/22/18 at 12:00 Diclofenac Sodium (Voltaren) 1 juan TID TP Last administered on 03/22/18 08:01 ; Start 03/21/18 at 14:00; Stop 03/22/18 at 13:01; Status DC Diclofenac Sodium (Voltaren) 1 juan PRN TID PRN TP PAIN; Start 03/22/18 at 13:00 Vitamin D (Vitamin D3) 50,000 unit WEEKLY PO Last administered on 03/29/18 09 :35; Start 03/22/18 at 13:45 Fluticasone Propionate (Flonase) 2 spray HS NS Last administered on 03/28/18 19:42; Start 03/24/18 at 21:00 Divalproex Sodium (Depakote Er) 1,000 mg QHS PO Last administered on 19:35; Start 03/25/18 at 21:00 Nystatin (Nystop) 1 juan BID TP Last administered on 03/29/18 19:38; Start at 21:00 Rivastigmine (Exelon) 1 patch DAILY TD Last administered on 03/29/18 09:32; Start 03/27/18 at 09:00 Memantine (Namenda) 5 mg 0900,1700 PO Last administered on 03/29/18 18:35; Start 03/27/18 at 17:00 Melatonin 3 mg QHS PO Last administered on 03/29/18 19:37; Start 03/26/18 at 21:00 Active Scripts Active Reported Keflex (Cephalexin) 500 Mg Capsule 500 Mg PO QID 10 Days Pravastatin Sodium 40 Mg Tablet 40 Mg PO DAILY Carbidopa-Levo Er 50-200 Tab (Carbidopa/Levodopa) 1 Each Tablet.er 1 Each PO HS Sinemet 25-100 Mg Tablet (Carbidopa/Levodopa) 1 Each Tablet 0.5 Tab PO PRN BID PRN Sinemet 25-100 Mg Tablet (Carbidopa/Levodopa) 1 Each Tablet 0.5 Tab PO Q2HR W/A Diazepam 2 Mg Tablet 2 Mg PO PRN Q6HRS PRN Fiber Gummies (Inulin/Chromium Picolinate) 1 Each Tab.chew 2 Ea PO TIDWMEALS Mirapex (Pramipexole Di-Hcl) 0.25 Mg Tablet 0.5 Mg PO HS Linzess (Linaclotide) 145 Mcg Capsule 145 Mcg PO DAILY Trazodone Hcl 50 Mg Tablet 75 Mg PO HS PRN Testosterone Cypionate 100 Mg/1 Ml Vial 150 Mg IM Q10 DAYS Divalproex Sodium 500 Mg Tablet.dr 500 Mg PO HS Hydrocortisone 453.6 Gm Cream..g. 1 Juan TP PRN BID PRN Ferrous Sulfate 325 Mg Tablet 650 Mg PO DAILY Magnesium Oxide 400 Mg Tablet 400 Mg PO BID Miconazole Nitrate 45 Gm Cream.appl 1 Juan TP PRN BID PRN Aspirin 81 Mg Tab.chew 81 Mg PO DAILY Ibuprofen 400 Mg Tablet 600 Mg PO PRN BID PRN Docusate Sodium 100 Mg Capsule 200 Mg PO PRN DAILY PRN Escitalopram Oxalate 20 Mg Tablet 20 Mg PO DAILY Fluticasone Propionate Nasal [place] (Fluticasone Propionate) 16 Gm [place].susp 2 [place] NS DAILY Multivitamins (Multivitamin) 1 Each Tablet 1 Tab PO DAILY Trazodone Hcl 50 Mg Tablet 25 Mg PO DAILYWSUP Trazodone Hcl 50 Mg Tablet 25 Mg PO PRN DAILY PRN Ascorbic Acid 500 Mg Tablet 500 Mg PO DAILY Lactulose 10 Gm/15 Ml Solution 15 Ml PO DAILYWBKFT I have reviewed the current psychotropics carefully including drug interactions. Risk benefit ratio favors no change other than as noted in my dictated progress note. Diagnosis: Problems: (1) Anxiety disorder (2) Lewy body dementia with behavioral disturbance (3) Impulse control disorder (4) Personality disorder in adult SAY PRUETT MD Mar 29, 2018 20:56
[2018-03-29] MEDS: FLUTICASONE 50MCG/NASAL SPRAY 16GM BOTTLE. NS SCH (21:00)
--- NOTE | 2018-03-29 21:23 | PN ---
DATE: 03/28/2018 PSYCHIATRIC PROGRESS NOTE This late entry 03/28/2018 covers elements not covered in my initial note. SUBJECTIVE: I met with the patient in the evening and also staffed at a treatment team meeting with the entire team in the morning and the patient's Catie attended. has done extensive research and had many questions about differentiation between Lewy body dementia and dementia with Parkinson's. She relates the progressive memory deficits with the patient, periods of clear cognition off and on during certain times of the day only to change dramatically later in the day. She was appointed temporary guardian and next guardianship hearing for permanency is on 04/08/2018. We have asked Dr. Daugherty to follow the patient for his Parkinson's, especially with respect to the deep brain stimulator and at the 's request, nursing staff will contact [facility], the patient's neurologist for further recommendations as well. The patient slept 2-3/4 hours previous night. REVIEW OF SYSTEMS: Ambulation impaired, in wheelchair. He has been putting himself on the floor at times. REVIEW OF SYSTEMS: No CV, , pulmonary, eye system symptoms on review. Reliability varies. MENTAL STATUS EXAM: Oriented to himself and situations. He was aware of the year and the month, not of the date. Able to do one step serial 7. Able to spell world forward, no error; backward, 3 errors. Attention span short. Language function intact. Mood and affect remain somewhat anxious, labile. LABORATORY DATA: Reviewed. IMPRESSION: Major neurocognitive disorder, probably Lewy body with delusion, depression, behavioral disturbance; anxiety disorder, unspecified; Parkinson's disease. Rest unchanged. PLAN: No change from a psychiatric standpoint. We will also have a CT head if not one has been done. Rest unchanged for now. SAY PRUETT MD DR: MARCEL/nano JOB#: [id number] / [id number]
--- NOTE | 2018-03-29 21:38 | PN ---
DATE: 03/27/2018 PSYCHIATRIC PROGRESS NOTE This s late entry 03/27/2018 covers elements not covered in my initial note. SUBJECTIVE: Met with the patient in the evening. The patient slept 3-3/4 hours previous night. He has been irritable, combative at night, per nursing report, trying to push another patient of her walker. He put himself on the floor, extremely labile in his mood, per nursing report. He was checked by the [facility] for the deep brain stimulator, reportedly wires are intact. We will defer to [facility] to manage this and Dr. Daugherty to manage him for his Parkinson's. His shared information that his memory has been progressively deteriorating for about 1 year with intermittent hallucinations. She has appointed a temporary guardian with the permanent guardianship hearing coming up fairly soon. REVIEW OF SYSTEMS: Ambulation is impaired, in wheelchair. No CV, , pulmonary, eye, ENT system symptoms on review. Reliability varies. MENTAL STATUS EXAM: Oriented to himself and situations. He was aware of the year and month, not the date. Attention span short, able to do one step, serial 7s, able to spell world forward and backward with 2 errors. Remains anxious, labile. No suicidal or homicidal ideation. LABORATORY DATA: Reviewed. IMPRESSION: Probable Lewy body dementia, anxiety disorder, unspecified; history of major depressive disorder. The patient is quite defensive in his diagnoses especially of the Lewy body dementia is discussed with him. PLAN: No change from a psychiatric standpoint. MAN Rosa PRUETT MD DR: MARCEL/nano JOB#: [id number] / [id number]
[2018-03-30 06:00] VITALS: BP 115/73
[2018-03-30] MEDS: CARBIDOPA/LEVODOPA 25/100MG TABLET PO SCH ×9 (06:48→22:00)
[2018-03-30] MEDS: ASPIRIN 81 MG TAB.CHEW PO SCH (06:48)
[2018-03-30] MEDS: MULTIVITAMIN with MINERAL TABLET. PO SCH (06:48)
[2018-03-30] MEDS: FERROUS SULFATE 325 MG TABLET. PO SCH (06:49)
[2018-03-30] MEDS: MEMANTINE 5 MG TABLET. PO SCH ×2 (06:49→18:32)
[2018-03-30] MEDS: MAGNESIUM OXIDE 400 MG TABLET PO SCH ×2 (06:49→21:03)
[2018-03-30] MEDS: PRAVASTATIN 20 MG TABLET. PO SCH (06:49)
[2018-03-30] MEDS: CITALOPRAM 20 MG TABLET. PO SCH (06:49)
[2018-03-30] MEDS: ASCORBIC ACID 500 MG TABLET PO SCH (06:50)
[2018-03-30] MEDS: RIVASTIGMINE 4.6MG PATCH. TD SCH (06:50)
[2018-03-30] MEDS: DOCUSATE SODIUM 100 MG CAPSULE PO SCH ×2 (06:50→21:04)
[2018-03-30] MEDS: NYSTATIN TOPICAL POWDER 15GM BOTTLE. TP SCH ×2 (06:51→21:00)
[2018-03-30] MEDS: LACTULOSE 20 GM/30 ML SOLUTION. PO SCH (06:51)
[2018-03-30] MEDS: LINACLOTIDE 145 MCG CAPSULE. PO SCH (06:51)
[2018-03-30] MEDS: metFORMIN XR 500 MG TAB.ER.24H PO SCH (07:39)
[2018-03-30 16:52] VITALS: BP 117/65
[2018-03-30] MEDS: traZODone 50 MG TABLET. PO SCH ×2 (18:32→21:04)
--- NOTE | 2018-03-30 20:29 | PN ---
DATE: 03/29/2018 PSYCHIATRIC PROGRESS NOTE This late entry 03/29/2018 covers elements not covered in my initial note. SUBJECTIVE: I met with the patient in the evening. The patient slept 6-1/2 hours previous night. Nursing reports state he has left a note for his , Yeny that "I give up. You win." I attempted to process this with him. He is somewhat dismissive. We will do a CT head as workup of his dementia and Dr. Daugherty, Neurology, has been consulted. No CV, , pulmonary, eye system symptoms on review. Gait unsteady, in wheelchair. MENTAL STATUS EXAM: Oriented to himself and situation. Speech has some latency, coherent. Abstraction fair. Computation, able to do one step serial 7, remains somewhat paranoid at times. No suicidal or homicidal ideation. LABORATORY DATA: Reviewed. IMPRESSION: Unchanged from initial note. PLAN: No change from initial note, await neuropsychological testing. Dr. Flanagan, Neurology with Dr. Daugherty, completion of CT head. I have asked the to leave a note about what symptoms she has experienced with the patient with respect to memory, hallucinations, and progressive deterioration over time. I am still awaiting for the note. MAN Rosa PRUETT MD DR: MARCEL/nano JOB#: [id number] / [id number]
[2018-03-30] MEDS: FLUTICASONE 50MCG/NASAL SPRAY 16GM BOTTLE. NS SCH (21:00)
[2018-03-30] MEDS: DIVALPROEX ER 500 MG TAB.ER.24H PO SCH (21:03)
[2018-03-30] MEDS: CARBIDOPA/LEVODOPA CR 50/200MG TABLET.SA PO SCH (21:04)
[2018-03-30] MEDS: PRAMIPEXOLE 0.5 MG TABLET. PO SCH (21:04)
[2018-03-30] MEDS: QUEtiapine 25 MG TABLET. PO SCH (21:04)
[2018-03-30] MEDS: MELATONIN 3 MG TABLET PO SCH (21:05)
--- NOTE | 2018-03-30 22:54 | PDOC ---
Exam Note: Сергей Note: Please also refer to the separate dictated note~for this date of service dictated separately.~Patient seen individually. Discussed the patient with Nursing staff reviewed the chart.~Reviewed interim history and current functioning. Reviewed vital signs,~Labs/ Radiology~and current medications noted below. Continue current treatment with the changes noted in the dictated addendum note Assessment: Vital Signs: Vital Signs Date Time Temp Pulse Resp B/P (MAP) Pulse Ox O2 Delivery O2 Flow Rate FiO2 03/30/18 16:52 97.8 70 20 117/65 (82) 94 03/29/18 15:54 Room Air I&O Intake and Output 03/30/18 07:00 Intake Total 1200 ml Balance 1200 ml Intake Oral 1200 ml Current Medications: Meds: Current Medications Influenza Virus Vaccine (Afluria Trivalent [id number] Syringe) 0.5 ml ONCE ONCE VAX IM Last administered on 03/21/18at 13:58; Start 03/21/18 at 09:00; Stop 03/21/18 at 09:01; Status DC Acetaminophen (Tylenol) 650 mg PRN Q6HRS PRN PO PAIN / TEMP Last administered on 03/24/18at 21:05; Start 03/21/18 at 04:15 Multi-Ingredient Ointment (Analgesic Hallie) 1 juan PRN QID PRN TP MUSCLE PAIN; Start 03/21/18 at 04:15 Al Hydroxide/Mg Hydroxide (Mylanta Plus Xs) 15 ml PRN AFTMEALHC PRN PO DYSPEPSIA; Start 03/21/18 at 04:15 Magnesium Hydroxide (Milk Of Magnesia) 2,400 mg PRN QHS PRN PO CONSTIPATION; Start 03/21/18 at 04:15 Info (FLU VACCINE per PROTOCOL) 1 ea PRN 1X PRN MC PER PROTOCOL; Start at 04:30; Status Cancel Ascorbic Acid (Vitamin C) 500 mg DAILY PO Last administered on 03/30/18at 06:50 ; Start 03/21/18 at 09:00 Carbidopa/Levodopa (Sinemet 25/100) 0.5 tab PRN BID PRN PO Tremors; Start 03/21 at 04:15; Status Cancel Carbidopa/Levodopa (Sinemet 25/100) 0.5 tab Q2HR W/A PO Last administered on 03/30/18at 21:04; Start 03/21/18 at 06:00 Ferrous Sulfate (Feosol) 650 mg DAILY PO ; Start 03/21/18 at 09:00; Stop at 11:35; Status DC Ibuprofen (Motrin) 600 mg PRN BID PRN PO PAIN; Start 03/21/18 at 04:15; Stop 03/21/18 at 11:44; Status DC Linaclotide (Linzess) 145 mcg DAILY PO Last administered on 03/30/18at 06:51; Start 03/21/18 at 09:00 Aspirin (Children'S Aspirin) 81 mg DAILYWBKFT PO Last administered on at 06:48; Start 03/21/18 at 08:00 Carbidopa/Levodopa (Sinemet Cr) 1 tab.sa HS PO Last administered on 03/30/18at 21:04; Start 03/21/18 at 21:00 Diazepam (Valium) 2 mg PRN Q6HRS PRN PO ANXIETY / AGITATION Last administered on 03/29/18at 20:22; Start 03/21/18 at 04:15 Divalproex Sodium (Depakote Er) 500 mg QHS PO Last administered on 03/24/18at 20 :17; Start 03/22/18 at 21:00; Stop 03/25/18 at 16:52; Status DC Docusate Sodium (Colace) 200 mg PRN DAILY PRN PO CONSTIPATION; Start 03/21/18 at 04:15; Stop 03/21/18 at 11:34; Status DC Citalopram Hydrobromide (CeleXA) 40 mg DAILY PO Last administered on at 06:49; Start 03/21/18 at 09:00 Fluticasone Propionate (Flonase) 2 spray DAILY NS Last administered on at 08:03; Start 03/21/18 at 09:00; Stop 03/24/18 at 10:03; Status DC Hydrocortisone (Cortaid) 1 juan PRN BID PRN TP ITCH/RASH Last administered on at 10:47; Start 03/21/18 at 07:45 Non-Formulary Medication (Inulin/Chromium Picolinate (Fiber Gummies)) 2 ea TIDWMEALS PO ; Start 03/21/18 at 08:00; Status UNV Lactulose (Lactulose) 15 gm DAILYWBKFT PO Last administered on 03/30/18 06:51 ; Start 03/21/18 at 08:00 Magnesium Oxide (Magnesium Oxide) 400 mg BID PO Last administered on at 21:03; Start 03/21/18 at 09:00 Miconazole Nitrate (Monistat-Derm) 1 juan PRN BID PRN TP RASH; Start 03/21/18 at 04:15 Multivitamins/ Calcium (Thera-M Plus) 1 tab DAILY PO Last administered on 03/30 06:48; Start 03/21/18 at 09:00 Pramipexole Dihydrochloride (miraPEX) 0.5 mg QHS PO Last administered on 21:04; Start 03/21/18 at 21:00 Pravastatin Sodium (Pravachol) 40 mg DAILY PO Last administered on 03/30/18 06:49; Start 03/21/18 at 09:00 Trazodone HCl (Desyrel) 25 mg DAILYWSUP PO Last administered on 03/30/18 18: 32; Start 03/21/18 at 17:00 Non-Formulary Medication (Trazodone Hcl ) 25 mg PRN DAILY PRN PO AGITATION; Start 03/21/18 at 04:15; Status UNV Trazodone HCl (Desyrel) 75 mg QHS PO Last administered on 03/30/18at 21:04; Start 03/21/18 at 21:00 Divalproex Sodium (Depakote Sprinkles) 250 mg HS PO ; Start 03/21/18 at 21:00; Status UNV Divalproex Sodium (Depakote Sprinkles) 250 mg HS PO ; Start 03/21/18 at 21:00; Status UNV Olanzapine (ZyPREXA) 2.5 mg PRN Q2HR PRN PO ANXIETY / AGITATION; Start at 04:15; Status Cancel Olanzapine (ZyPREXA ZYDIS) 5 mg PRN Q2HR PRN PO PSYCHOSIS; Start 03/21/18 at 04 :15 Quetiapine Fumarate (SEROquel) 25 mg QHS PO Last administered on 10/13/18at 21: 04; Start 03/21/18 at 21:00 Docusate Sodium (Colace) 100 mg BID PO Last administered on 03/30/18 21:04; Start 03/21/18 at 21:00 Ferrous Sulfate (Feosol) 650 mg DAILY06 PO Last administered on 03/30/18at 06: 49; Start 03/22/18 at 06:00 Ibuprofen (Motrin) 600 mg PRN BID PRN PO INFLAMMATION Last administered on 03/22 02:26; Start 03/21/18 at 11:45 Metformin HCl (Glucophage Xr) 1,000 mg DAILYWBKFT PO Last administered on 03/30at 07:39; Start 03/22/18 at 12:00 Diclofenac Sodium (Voltaren) 1 juan TID TP Last administered on 03/22/18at 08:01 ; Start 03/21/18 at 14:00; Stop 03/22/18 at 13:01; Status DC Diclofenac Sodium (Voltaren) 1 juan PRN TID PRN TP PAIN; Start 03/22/18 at 13:00 Vitamin D (Vitamin D3) 50,000 unit WEEKLY PO Last administered on 03/29/18at 09 :35; Start 03/22/18 at 13:45 Fluticasone Propionate (Flonase) 2 spray HS NS Last administered on 03/30/18at 21:00; Start 03/24/18 at 21:00 Divalproex Sodium (Depakote Er) 1,000 mg QHS PO Last administered on at 21:03; Start 03/25/18 at 21:00 Nystatin (Nystop) 1 juan BID TP Last administered on 03/30/18at 21:00; Start at 21:00 Rivastigmine (Exelon) 1 patch DAILY TD Last administered on 03/30/18at 06:50; Start 03/27/18 at 09:00 Memantine (Namenda) 5 mg 0900,1700 PO Last administered on 03/30/18at 18:32; Start 03/27/18 at 17:00 Melatonin 3 mg QHS PO Last administered on 03/30/18at 21:05; Start 03/26/18 at 21:00 Active Scripts Active Reported Keflex (Cephalexin) 500 Mg Capsule 500 Mg PO QID 10 Days Pravastatin Sodium 40 Mg Tablet 40 Mg PO DAILY Carbidopa-Levo Er 50-200 Tab (Carbidopa/Levodopa) 1 Each Tablet.er 1 Each PO HS Sinemet 25-100 Mg Tablet (Carbidopa/Levodopa) 1 Each Tablet 0.5 Tab PO PRN BID PRN Sinemet 25-100 Mg Tablet (Carbidopa/Levodopa) 1 Each Tablet 0.5 Tab PO Q2HR W/A Diazepam 2 Mg Tablet 2 Mg PO PRN Q6HRS PRN Fiber Gummies (Inulin/Chromium Picolinate) 1 Each Tab.chew 2 Ea PO TIDWMEALS Mirapex (Pramipexole Di-Hcl) 0.25 Mg Tablet 0.5 Mg PO HS Linzess (Linaclotide) 145 Mcg Capsule 145 Mcg PO DAILY Trazodone Hcl 50 Mg Tablet 75 Mg PO HS PRN Testosterone Cypionate 100 Mg/1 Ml Vial 150 Mg IM Q10 DAYS Divalproex Sodium 500 Mg Tablet.dr 500 Mg PO HS Hydrocortisone 453.6 Gm Cream..g. 1 Juan TP PRN BID PRN Ferrous Sulfate 325 Mg Tablet 650 Mg PO DAILY Magnesium Oxide 400 Mg Tablet 400 Mg PO BID Miconazole Nitrate 45 Gm Cream.appl 1 Juan TP PRN BID PRN Aspirin 81 Mg Tab.chew 81 Mg PO DAILY Ibuprofen 400 Mg Tablet 600 Mg PO PRN BID PRN Docusate Sodium 100 Mg Capsule 200 Mg PO PRN DAILY PRN Escitalopram Oxalate 20 Mg Tablet 20 Mg PO DAILY Fluticasone Propionate Nasal [place] (Fluticasone Propionate) 16 Gm [place].susp 2 [place] NS DAILY Multivitamins (Multivitamin) 1 Each Tablet 1 Tab PO DAILY Trazodone Hcl 50 Mg Tablet 25 Mg PO DAILYWSUP Trazodone Hcl 50 Mg Tablet 25 Mg PO PRN DAILY PRN Ascorbic Acid 500 Mg Tablet 500 Mg PO DAILY Lactulose 10 Gm/15 Ml Solution 15 Ml PO DAILYWBKFT I have reviewed the current psychotropics carefully including drug interactions. Risk benefit ratio favors no change other than as noted in my dictated progress note. Diagnosis: Problems: (1) Anxiety disorder (2) Lewy body dementia with behavioral disturbance (3) Impulse control disorder (4) Personality disorder in adult SAY PRUETT MD Mar 30, 2018 22:54
[2018-03-31] MEDS: FERROUS SULFATE 325 MG TABLET. PO SCH (05:54)
[2018-03-31] MEDS: CARBIDOPA/LEVODOPA 25/100MG TABLET PO SCH ×9 (05:54→22:00)
[2018-03-31 06:29] VITALS: BP 130/77
[2018-03-31] MEDS: PRAVASTATIN 20 MG TABLET. PO SCH (08:55)
[2018-03-31] MEDS: LACTULOSE 20 GM/30 ML SOLUTION. PO SCH (08:55)
[2018-03-31] MEDS: RIVASTIGMINE 4.6MG PATCH. TD SCH (08:55)
[2018-03-31] MEDS: MEMANTINE 5 MG TABLET. PO SCH ×2 (08:56→17:24)
[2018-03-31] MEDS: ASPIRIN 81 MG TAB.CHEW PO SCH (08:56)
[2018-03-31] MEDS: CITALOPRAM 20 MG TABLET. PO SCH (08:56)
[2018-03-31] MEDS: DOCUSATE SODIUM 100 MG CAPSULE PO SCH ×2 (08:56→19:39)
[2018-03-31] MEDS: MULTIVITAMIN with MINERAL TABLET. PO SCH (08:56)
[2018-03-31] MEDS: metFORMIN XR 500 MG TAB.ER.24H PO SCH (08:56)
[2018-03-31] MEDS: LINACLOTIDE 145 MCG CAPSULE. PO SCH (08:59)
[2018-03-31] MEDS: NYSTATIN TOPICAL POWDER 15GM BOTTLE. TP SCH ×2 (08:59→19:39)
[2018-03-31] MEDS: MAGNESIUM OXIDE 400 MG TABLET PO SCH ×2 (08:59→19:39)
[2018-03-31] MEDS: ASCORBIC ACID 500 MG TABLET PO SCH (09:00)
[2018-03-31 16:18] VITALS: BP 144/93
[2018-03-31] MEDS: traZODone 50 MG TABLET. PO SCH ×2 (17:25→19:38)
[2018-03-31] MEDS: CARBIDOPA/LEVODOPA CR 50/200MG TABLET.SA PO SCH (19:38)
[2018-03-31] MEDS: MELATONIN 3 MG TABLET PO SCH (19:38)
[2018-03-31] MEDS: FLUTICASONE 50MCG/NASAL SPRAY 16GM BOTTLE. NS SCH (19:38)
[2018-03-31] MEDS: QUEtiapine 25 MG TABLET. PO SCH (19:39)
[2018-03-31] MEDS: DIVALPROEX ER 500 MG TAB.ER.24H PO SCH (19:39)
[2018-03-31] MEDS: PRAMIPEXOLE 0.5 MG TABLET. PO SCH (19:39)
--- NOTE | 2018-03-31 20:59 | PDOC ---
Exam Note: Сергей Note: Please also refer to the separate dictated note~for this date of service dictated separately.~Patient seen individually. Discussed the patient with Nursing staff reviewed the chart.~Reviewed interim history and current functioning. Reviewed vital signs,~Labs/ Radiology~and current medications noted below. Continue current treatment with the changes noted in the dictated addendum note Assessment: Vital Signs: Vital Signs Date Time Temp Pulse Resp B/P (MAP) Pulse Ox O2 Delivery O2 Flow Rate FiO2 03/31/18 16:18 97.7 60 18 144/93 (110) 96 03/29/18 15:54 Room Air I&O Intake and Output 03/31/18 07:00 Intake Total 1370 ml Balance 1370 ml Intake Oral 1370 ml Current Medications: Meds: Current Medications Influenza Virus Vaccine (Afluria Trivalent [id number] Syringe) 0.5 ml ONCE ONCE VAX IM Last administered on 03/21/18at 13:58; Start 03/21/18 at 09:00; Stop 03/21/18 at 09:01; Status DC Acetaminophen (Tylenol) 650 mg PRN Q6HRS PRN PO PAIN / TEMP Last administered on 03/24/18at 21:05; Start 03/21/18 at 04:15 Multi-Ingredient Ointment (Analgesic [place]) 1 juan PRN QID PRN TP MUSCLE PAIN; Start 03/21/18 at 04:15 Al Hydroxide/Mg Hydroxide (Mylanta Plus Xs) 15 ml PRN AFTMEALHC PRN PO DYSPEPSIA; Start 03/21/18 at 04:15 Magnesium Hydroxide (Milk Of Magnesia) 2,400 mg PRN QHS PRN PO CONSTIPATION; Start 03/21/18 at 04:15 Info (FLU VACCINE per PROTOCOL) 1 ea PRN 1X PRN MC PER PROTOCOL; Start at 04:30; Status Cancel Ascorbic Acid (Vitamin C) 500 mg DAILY PO Last administered on 03/31/18at 09:00 ; Start 03/21/18 at 09:00 Carbidopa/Levodopa (Sinemet 25/100) 0.5 tab PRN BID PRN PO Tremors; Start 03/21 at 04:15; Status Cancel Carbidopa/Levodopa (Sinemet 25/100) 0.5 tab Q2HR W/A PO Last administered on 03/31/18at 19:38; Start 03/21/18 at 06:00 Ferrous Sulfate (Feosol) 650 mg DAILY PO ; Start 03/21/18 at 09:00; Stop at 11:35; Status DC Ibuprofen (Motrin) 600 mg PRN BID PRN PO PAIN; Start 03/21/18 at 04:15; Stop 03/21/18 at 11:44; Status DC Linaclotide (Linzess) 145 mcg DAILY PO Last administered on 03/31/18at 08:59; Start 03/21/18 at 09:00 Aspirin (Children'S Aspirin) 81 mg DAILYWBKFT PO Last administered on 08:56; Start 03/21/18 at 08:00 Carbidopa/Levodopa (Sinemet Cr) 1 tab.sa HS PO Last administered on 03/31/18 19:38; Start 03/21/18 at 21:00 Diazepam (Valium) 2 mg PRN Q6HRS PRN PO ANXIETY / AGITATION Last administered on 03/29/18at 20:22; Start 03/21/18 at 04:15 Divalproex Sodium (Depakote Er) 500 mg QHS PO Last administered on 03/24/18at 20 :17; Start 03/22/18 at 21:00; Stop 03/25/18 at 16:52; Status DC Docusate Sodium (Colace) 200 mg PRN DAILY PRN PO CONSTIPATION; Start 03/21/18 at 04:15; Stop 03/21/18 at 11:34; Status DC Citalopram Hydrobromide (CeleXA) 40 mg DAILY PO Last administered on at 08:56; Start 03/21/18 at 09:00 Fluticasone Propionate (Flonase) 2 spray DAILY NS Last administered on at 08:03; Start 03/21/18 at 09:00; Stop 03/24/18 at 10:03; Status DC Hydrocortisone (Cortaid) 1 juan PRN BID PRN TP ITCH/RASH Last administered on at 10:47; Start 03/21/18 at 07:45 Non-Formulary Medication (Inulin/Chromium Picolinate (Fiber Gummies)) 2 ea TIDWMEALS PO ; Start 03/21/18 at 08:00; Status UNV Lactulose (Lactulose) 15 gm DAILYWBKFT PO Last administered on 03/31/18 08:55 ; Start 03/21/18 at 08:00 Magnesium Oxide (Magnesium Oxide) 400 mg BID PO Last administered on 19:39; Start 03/21/18 at 09:00 Miconazole Nitrate (Monistat-Derm) 1 juan PRN BID PRN TP RASH; Start 03/21/18 at 04:15 Multivitamins/ Calcium (Thera-M Plus) 1 tab DAILY PO Last administered on 03/31 08:56; Start 03/21/18 at 09:00 Pramipexole Dihydrochloride (miraPEX) 0.5 mg QHS PO Last administered on 19:39; Start 03/21/18 at 21:00 Pravastatin Sodium (Pravachol) 40 mg DAILY PO Last administered on 03/31/18 08:55; Start 03/21/18 at 09:00 Trazodone HCl (Desyrel) 25 mg DAILYWSUP PO Last administered on 03/31/18 17: 25; Start 03/21/18 at 17:00 Non-Formulary Medication (Trazodone Hcl ) 25 mg PRN DAILY PRN PO AGITATION; Start 03/21/18 at 04:15; Status UNV Trazodone HCl (Desyrel) 75 mg QHS PO Last administered on 03/31/18 19:38; Start 03/21/18 at 21:00 Divalproex Sodium (Depakote Sprinkles) 250 mg HS PO ; Start 03/21/18 at 21:00; Status UNV Divalproex Sodium (Depakote Sprinkles) 250 mg HS PO ; Start 03/21/18 at 21:00; Status UNV Olanzapine (ZyPREXA) 2.5 mg PRN Q2HR PRN PO ANXIETY / AGITATION; Start at 04:15; Status Cancel Olanzapine (ZyPREXA ZYDIS) 5 mg PRN Q2HR PRN PO PSYCHOSIS; Start 03/21/18 at 04 :15 Quetiapine Fumarate (SEROquel) 25 mg QHS PO Last administered on 03/31/18 19: 39; Start 03/21/18 at 21:00 Docusate Sodium (Colace) 100 mg BID PO Last administered on 03/31/18 19:39; Start 03/21/18 at 21:00 Ferrous Sulfate (Feosol) 650 mg DAILY06 PO Last administered on 03/31/18 05: 54; Start 03/22/18 at 06:00 Ibuprofen (Motrin) 600 mg PRN BID PRN PO INFLAMMATION Last administered on 03/22 02:26; Start 03/21/18 at 11:45 Metformin HCl (Glucophage Xr) 1,000 mg DAILYWBKFT PO Last administered on 03/31 08:56; Start 03/22/18 at 12:00 Diclofenac Sodium (Voltaren) 1 juan TID TP Last administered on 03/22/18 08:01 ; Start 03/21/18 at 14:00; Stop 03/22/18 at 13:01; Status DC Diclofenac Sodium (Voltaren) 1 juan PRN TID PRN TP PAIN; Start 03/22/18 at 13:00 Vitamin D (Vitamin D3) 50,000 unit WEEKLY PO Last administered on 03/29/18 09 :35; Start 03/22/18 at 13:45 Fluticasone Propionate (Flonase) 2 spray HS NS Last administered on 03/31/18 19:38; Start 03/24/18 at 21:00 Divalproex Sodium (Depakote Er) 1,000 mg QHS PO Last administered on 19:39; Start 03/25/18 at 21:00 Nystatin (Nystop) 1 juan BID TP Last administered on 03/31/18 19:39; Start at 21:00 Rivastigmine (Exelon) 1 patch DAILY TD Last administered on 03/31/18 08:55; Start 03/27/18 at 09:00 Memantine (Namenda) 5 mg 0900,1700 PO Last administered on 03/31/18 17:24; Start 03/27/18 at 17:00 Melatonin 3 mg QHS PO Last administered on 03/31/18 19:38; Start 03/26/18 at 21:00 Active Scripts Active Reported Keflex (Cephalexin) 500 Mg Capsule 500 Mg PO QID 10 Days Pravastatin Sodium 40 Mg Tablet 40 Mg PO DAILY Carbidopa-Levo Er 50-200 Tab (Carbidopa/Levodopa) 1 Each Tablet.er 1 Each PO HS Sinemet 25-100 Mg Tablet (Carbidopa/Levodopa) 1 Each Tablet 0.5 Tab PO PRN BID PRN Sinemet 25-100 Mg Tablet (Carbidopa/Levodopa) 1 Each Tablet 0.5 Tab PO Q2HR W/A Diazepam 2 Mg Tablet 2 Mg PO PRN Q6HRS PRN Fiber Gummies (Inulin/Chromium Picolinate) 1 Each Tab.chew 2 Ea PO TIDWMEALS Mirapex (Pramipexole Di-Hcl) 0.25 Mg Tablet 0.5 Mg PO HS Linzess (Linaclotide) 145 Mcg Capsule 145 Mcg PO DAILY Trazodone Hcl 50 Mg Tablet 75 Mg PO HS PRN Testosterone Cypionate 100 Mg/1 Ml Vial 150 Mg IM Q10 DAYS Divalproex Sodium 500 Mg Tablet.dr 500 Mg PO HS Hydrocortisone 453.6 Gm Cream..g. 1 Juan TP PRN BID PRN Ferrous Sulfate 325 Mg Tablet 650 Mg PO DAILY Magnesium Oxide 400 Mg Tablet 400 Mg PO BID Miconazole Nitrate 45 Gm Cream.appl 1 Juan TP PRN BID PRN Aspirin 81 Mg Tab.chew 81 Mg PO DAILY Ibuprofen 400 Mg Tablet 600 Mg PO PRN BID PRN Docusate Sodium 100 Mg Capsule 200 Mg PO PRN DAILY PRN Escitalopram Oxalate 20 Mg Tablet 20 Mg PO DAILY Fluticasone Propionate Nasal [place] (Fluticasone Propionate) 16 Gm [place].susp 2 [place] NS DAILY Multivitamins (Multivitamin) 1 Each Tablet 1 Tab PO DAILY Trazodone Hcl 50 Mg Tablet 25 Mg PO DAILYWSUP Trazodone Hcl 50 Mg Tablet 25 Mg PO PRN DAILY PRN Ascorbic Acid 500 Mg Tablet 500 Mg PO DAILY Lactulose 10 Gm/15 Ml Solution 15 Ml PO DAILYWBKFT I have reviewed the current psychotropics carefully including drug interactions. Risk benefit ratio favors no change other than as noted in my dictated progress note. Diagnosis: Problems: (1) Anxiety disorder (2) Lewy body dementia with behavioral disturbance (3) Impulse control disorder (4) Personality disorder in adult SAY PRUETT MD Mar 31, 2018 20:59
--- NOTE | 2018-04-01 04:05 | PN ---
DATE: 03/30/2018 This is a late entry for 03/30/2018 covers elements not covered in my initial note. SUBJECTIVE: I met with the patient in the evening. The patient slept 7-1/4 hours previous night. Overall, the patient has been somewhat anxious, labile at times, but limited insight into the circumstances prompting admission. Reportedly, the patient's is putting together a detailed history of the patient's symptoms regarding his mood symptoms and symptoms suggestive of Lewy body dementia and awaiting these records. REVIEW OF SYSTEMS: Ambulation impaired, in walker. No CV, , pulmonary, eye, ENT system symptoms on review. MENTAL STATUS EXAM: Oriented to himself and situation. Speech coherent, has some latency. Abstraction fair. Computation able to do two steps on serial 7's. No active suicidal or homicidal ideation. Remains somewhat anxious, labile, in his mood. IMPRESSION: Unchanged from initial note. PLAN: No change from initial note. MAN Rosa PRUETT MD DR: MARCEL/nano JOB#: [id number] / [id number]
--- NOTE | 2018-04-01 04:30 | PN ---
DATE: 03/26/2018 SUBJECTIVE: The patient was seen today in a followup visit. He denies any new medical or neurological complaints. According to the nursing staff, the patient dropped himself to the floor and he had difficulty to get up and walk using a walker. He demonstrates some inappropriate behaviors as he refused to pull his pant up when he was asked to do so. However, he denies tremor of the hands or recent fall or injuries. OBJECTIVE: GENERAL: Obese male, not in acute distress. VITAL SIGNS: Blood pressure 147/80, respiratory rate 22, pulse is 97, temperature 97.1, oxygen saturation 93% on room air. HEENT: Normocephalic, atraumatic, otherwise unremarkable. NECK: Supple. Negative for carotid bruit, lymphadenopathy or thyromegaly. LUNGS: Clear to A and P. CARDIOVASCULAR: Regular rate and rhythm, normal S1, S2. ABDOMEN: Soft. Bowel sounds positive. EXTREMITIES: Negative for cyanosis, clubbing or pitting edema. NEUROLOGICAL EXAM: Mental Status: The patient is alert and oriented x 3. Speech is fluent. There is no language dysfunction. The patient recalls 2/3 immediately and after 1 and 3 minutes. Judgment abstract and thinking are fair. The patient denies hallucination or delusion. Cranial nerves are intact. No focal motor or sensory deficit. Deep tendon reflexes were symmetric and active with absent Achilles responses. Gait: Gait not tested. IMPRESSION: 1. Parkinson's disease with dementia may represent Lewy body dementia. 2. Status post deep nerve stimulator placement for Parkinson's disease. I just received a call from [facility], the coordinator of deep nerve stimulator and she told me the system is working fine. 3. Multiple medical problems include obstructive sleep apnea for which he uses a CPAP, hypertension, depression, and anxiety. RECOMMENDATIONS: Continue with current medical and psychiatric care. Deepti GILES MD DR: MK/nano JOB#: [id number] / [id number]
--- NOTE | 2018-04-01 04:30 | PN ---
DATE: 03/24/2018 SUBJECTIVE: The patient was seen today in a followup visit. He denies any new medical or neurological complaints. The patient has been complaining of pain of the knees and difficulty to walk. He denies any recent head injuries or fall. He depends on wheelchair for ambulation. He denies any tremor or increased stiffness of the extremities. OBJECTIVE: GENERAL: Obese male, not in acute distress. VITAL SIGNS: Blood pressure 123/80, respiratory rate 20, pulse is 78, temperature 98.1, and oxygen saturation 95%. HEENT: Normocephalic, atraumatic, otherwise unremarkable. NECK: Supple, negative for carotid bruit, lymphadenopathy or thyromegaly. LUNGS: Clear to A and P. CARDIOVASCULAR: Regular rate and rhythm, normal S1, S2. ABDOMEN: Soft. Bowel sounds positive. EXTREMITIES: Negative for cyanosis, clubbing or pitting edema. NEUROLOGICAL: The patient is alert and oriented x 3. Speech is fluent. There is no language dysfunction. The patient recalls 2/3 immediately and after 1 and 3 minutes. Otherwise, unremarkable. Cranial nerves are intact. Motor: No focal muscle bulk was seen. The strength was 5/5 throughout. Sensory examination revealed normal pinprick and light touch senses throughout. Deep tendon reflexes were symmetric and active with absent Achilles responses. Gait: The patient depends on a wheelchair and also uses a walker sometimes. IMPRESSION: 1. Parkinson disease and dementia, possible Lewy body dementia. 2. Multiple medical problems include hyperlipidemia, obesity, obstructive sleep apnea, hypogonadism and status post deep nerve stimulator implant. RECOMMENDATIONS: 1. We will continue with current medical and psychiatric care. 2. Await for deep nerve stimulator technicians to integrate the system and assure patency of the stimulator and good standard. Otherwise, we will continue with current medications for Parkinson's as it is. M Malena GILES MD DR: MK/nano JOB#: [id number] / [id number]
--- NOTE | 2018-04-01 04:39 | PN ---
DATE: 03/28/2018 SUBJECTIVE: The patient denies any new medical or neurological complaints; however, it has been reported some inappropriate behavior during the day as the patient dropped himself to the floor. He denies any worsening of tremor or stiffness of his body or extremities. He denies any recent fall or injuries. The patient has been checked by [facility] coordinator for his deep nerve stimulator and I have a chance to talk to the coordinator, who told me that the system is working fine. OBJECTIVE: GENERAL: Obese male, not in acute distress. VITAL SIGNS: Blood pressure 125/78, respiratory rate 24, pulse is 58, temperature 97.7, and oxygen saturation 93% on room air. HEENT: Normocephalic and atraumatic, otherwise unremarkable. NECK: Supple. Negative for carotid bruit, lymphadenopathy or thyromegaly. LUNGS: Clear to A and P. CARDIOVASCULAR: Regular rhythm, normal S1 and S2. ABDOMEN: Soft. Bowel sounds positive. EXTREMITIES: Negative for cyanosis, clubbing, pitting edema. NEUROLOGIC: The patient is alert and oriented x 3. Speech is fluent. There is no language dysfunction. He recalls 2/3 immediately and after 1 and 3 minutes. Judgment and abstract thinking are fair. The patient denies hallucination or delusion. Cranial nerves are intact and no focal motor or sensory deficit. The tone is normal. The patient has no obvious resting tremor. Deep tendon reflexes were symmetric with absent Achilles responses. Gait: The patient refused to walk as he has severe pain of the knees and weakness of the lower extremities, so he uses a wheelchair most of the time for ambulation. LABORATORY DATA: CBC revealed white blood cells of 6500, hemoglobin 12.5, hematocrit 36.9 and platelet count 187,000. Chemistry revealed sodium of 141, potassium 4.2, chloride 104, CO2 of 23, BUN 18, creatinine 1, glucose is 91, and calcium 8.8. Vitamin B12 is 380 and vitamin D is low at 23.8. Thyroid profiles including T4 and T3 are normal. Valproic acid is low at 42. IMPRESSION: 1. Parkinson disease with dementia of moderate severity, may represent Lewy body dementia. 2. Multiple psychiatric problems include depressions, anxiety, and sometimes inappropriate behavior. 3. Multiple medical problems include hypertension, obstructive sleep apnea. RECOMMENDATIONS: We will continue with current psychiatric and medical care. The patient's Parkinson's symptoms have been stable. M Malena GILES MD DR: MK/nano JOB#: [id number] / [id number]
--- NOTE | 2018-04-01 04:42 | PN ---
DATE: 03/30/2018 SUBJECTIVE: The patient denies any new medical or neurological complaints. He denies headaches, visual disturbances, tremor, rigidity, recent fall or injuries. However, it was reported by nursing staff that he continues to drop himself to the floor and today he complains of painful left toes secondary to ____ nail. OBJECTIVE: GENERAL: Obese male, not in acute distress. VITAL SIGNS: Blood pressure 115/73, respiratory rate 19, pulse is 62, temperature 97.6, oxygen saturation 94% on room air. HEENT: Normocephalic, atraumatic, otherwise, unremarkable. NECK: Supple, negative for carotid bruit, lymphadenopathy or thyromegaly. LUNGS: Clear to A and P. CARDIOVASCULAR: Regular rhythm, normal S1, S2. There is no S3, S4 or murmur. ABDOMEN: Soft. Bowel sounds positive. EXTREMITIES: Negative for cyanosis, clubbing or pitting edema. NEUROLOGICAL EXAM: Mental Status: The patient is alert and oriented x 3. The speech is fluent. There is no language dysfunction. He recalls 2/3 immediately and 1/3 after 1 and 3 minutes. Judgment and abstraction thinking are fair. The patient denies hallucination or delusion. Cranial nerves are grossly intact. No focal motor or sensory deficit. The strength is 5/5 throughout. The tone is normal. There is no obvious resting tremor. Deep tendon reflexes were symmetric with absent Achilles responses. Gait: The patient is confined to a wheelchair. IMAGING: Nonenhanced head CT scan performed on 03/21/2018 revealed no acute intracranial process, but it showed bifrontal deep brain stimulator lead extended to the basal ganglia region bilaterally along with generalized atrophy, otherwise, no intracranial bleed. IMPRESSION: 1. Parkinson's disease and dementia of moderate severity, status post deep nerve stimulator implant, which has improved his Parkinsonism. 2. Multiple psychiatric problems include depressions, anxiety and intermittent behavior disturbances and delusion. 3. Multiple medical problems include obesity, obstructive sleep apnea. RECOMMENDATIONS: Continue with current management initiated with current psychiatric care initiated by Dr. Martins and would continue with current medical care. His neurological examination is stable. M Malena GILES MD DR: MK/nano JOB#: [id number] / [id number]
[2018-04-01] MEDS: CARBIDOPA/LEVODOPA 25/100MG TABLET PO SCH ×9 (06:15→22:00)
[2018-04-01] MEDS: FERROUS SULFATE 325 MG TABLET. PO SCH (06:16)
[2018-04-01 06:42] VITALS: BP 138/78
[2018-04-01] MEDS: NYSTATIN TOPICAL POWDER 15GM BOTTLE. TP SCH ×2 (09:00→20:09)
[2018-04-01] MEDS: ASPIRIN 81 MG TAB.CHEW PO SCH (09:06)
[2018-04-01] MEDS: metFORMIN XR 500 MG TAB.ER.24H PO SCH (09:06)
[2018-04-01] MEDS: LACTULOSE 20 GM/30 ML SOLUTION. PO SCH (09:09)
[2018-04-01] MEDS: DOCUSATE SODIUM 100 MG CAPSULE PO SCH ×2 (09:09→19:48)
[2018-04-01] MEDS: CITALOPRAM 20 MG TABLET. PO SCH (09:09)
[2018-04-01] MEDS: MULTIVITAMIN with MINERAL TABLET. PO SCH (09:10)
[2018-04-01] MEDS: MAGNESIUM OXIDE 400 MG TABLET PO SCH ×2 (09:10→19:48)
[2018-04-01] MEDS: MEMANTINE 5 MG TABLET. PO SCH ×2 (09:10→16:59)
[2018-04-01] MEDS: ASCORBIC ACID 500 MG TABLET PO SCH (09:10)
[2018-04-01] MEDS: PRAVASTATIN 20 MG TABLET. PO SCH (09:11)
[2018-04-01] MEDS: RIVASTIGMINE 4.6MG PATCH. TD SCH (09:11)
[2018-04-01] MEDS: LINACLOTIDE 145 MCG CAPSULE. PO SCH (09:12)
[2018-04-01 16:24] VITALS: BP 136/76
[2018-04-01] MEDS: traZODone 50 MG TABLET. PO SCH ×2 (16:59→19:49)
[2018-04-01] MEDS: QUEtiapine 25 MG TABLET. PO SCH (19:48)
[2018-04-01] MEDS: MELATONIN 3 MG TABLET PO SCH (19:48)
[2018-04-01] MEDS: CARBIDOPA/LEVODOPA CR 50/200MG TABLET.SA PO SCH (19:48)
[2018-04-01] MEDS: PRAMIPEXOLE 0.5 MG TABLET. PO SCH (19:49)
[2018-04-01] MEDS: DIVALPROEX ER 500 MG TAB.ER.24H PO SCH (20:08)
[2018-04-01] MEDS: FLUTICASONE 50MCG/NASAL SPRAY 16GM BOTTLE. NS SCH (20:08)
[2018-04-01] MEDS: diazePAM 2 MG TABLET PO PRN (20:09)
--- NOTE | 2018-04-01 22:57 | PDOC ---
Exam Note: Сергей Note: Please also refer to the separate dictated note~for this date of service dictated separately.~Patient seen individually. Discussed the patient with Nursing staff reviewed the chart.~Reviewed interim history and current functioning. Reviewed vital signs,~Labs/ Radiology~and current medications noted below. Continue current treatment with the changes noted in the dictated addendum note Assessment: Vital Signs: Vital Signs Date Time Temp Pulse Resp B/P (MAP) Pulse Ox O2 Delivery O2 Flow Rate FiO2 04/01/18 16:24 97.1 61 20 136/76 (96) 94 03/29/18 15:54 Room Air I&O Intake and Output 04/01/18 07:00 Intake Total 1080 ml Balance 1080 ml Intake Oral 1080 ml Current Medications: Meds: Current Medications Influenza Virus Vaccine (Afluria Trivalent [id number] Syringe) 0.5 ml ONCE ONCE VAX IM Last administered on 03/21/18at 13:58; Start 03/21/18 at 09:00; Stop 03/21/18 at 09:01; Status DC Acetaminophen (Tylenol) 650 mg PRN Q6HRS PRN PO PAIN / TEMP Last administered on 03/24/18at 21:05; Start 03/21/18 at 04:15 Multi-Ingredient Ointment (Analgesic [place]) 1 juan PRN QID PRN TP MUSCLE PAIN; Start 03/21/18 at 04:15 Al Hydroxide/Mg Hydroxide (Mylanta Plus Xs) 15 ml PRN AFTMEALHC PRN PO DYSPEPSIA; Start 03/21/18 at 04:15 Magnesium Hydroxide (Milk Of Magnesia) 2,400 mg PRN QHS PRN PO CONSTIPATION; Start 03/21/18 at 04:15 Info (FLU VACCINE per PROTOCOL) 1 ea PRN 1X PRN MC PER PROTOCOL; Start at 04:30; Status Cancel Ascorbic Acid (Vitamin C) 500 mg DAILY PO Last administered on 04/01/18at 09:10 ; Start 03/21/18 at 09:00 Carbidopa/Levodopa (Sinemet 25/100) 0.5 tab PRN BID PRN PO Tremors; Start 03/21 at 04:15; Status Cancel Carbidopa/Levodopa (Sinemet 25/100) 0.5 tab Q2HR W/A PO Last administered on 04/01/18at 20:07; Start 03/21/18 at 06:00 Ferrous Sulfate (Feosol) 650 mg DAILY PO ; Start 03/21/18 at 09:00; Stop at 11:35; Status DC Ibuprofen (Motrin) 600 mg PRN BID PRN PO PAIN; Start 03/21/18 at 04:15; Stop 03/21/18 at 11:44; Status DC Linaclotide (Linzess) 145 mcg DAILY PO Last administered on 04/01/18at 09:12; Start 03/21/18 at 09:00 Aspirin (Children'S Aspirin) 81 mg DAILYWBKFT PO Last administered on at 09:06; Start 03/21/18 at 08:00 Carbidopa/Levodopa (Sinemet Cr) 1 tab.sa HS PO Last administered on 04/01/18at 19:48; Start 03/21/18 at 21:00 Diazepam (Valium) 2 mg PRN Q6HRS PRN PO ANXIETY / AGITATION Last administered on 04/01/18at 20:09; Start 03/21/18 at 04:15 Divalproex Sodium (Depakote Er) 500 mg QHS PO Last administered on 03/24/18at 20 :17; Start 03/22/18 at 21:00; Stop 03/25/18 at 16:52; Status DC Docusate Sodium (Colace) 200 mg PRN DAILY PRN PO CONSTIPATION; Start 03/21/18 at 04:15; Stop 03/21/18 at 11:34; Status DC Citalopram Hydrobromide (CeleXA) 40 mg DAILY PO Last administered on at 09:09; Start 03/21/18 at 09:00 Fluticasone Propionate (Flonase) 2 spray DAILY NS Last administered on at 08:03; Start 03/21/18 at 09:00; Stop 03/24/18 at 10:03; Status DC Hydrocortisone (Cortaid) 1 juan PRN BID PRN TP ITCH/RASH Last administered on at 10:47; Start 03/21/18 at 07:45 Non-Formulary Medication (Inulin/Chromium Picolinate (Fiber Gummies)) 2 ea TIDWMEALS PO ; Start 03/21/18 at 08:00; Status UNV Lactulose (Lactulose) 15 gm DAILYWBKFT PO Last administered on 04/01/18 09:09 ; Start 03/21/18 at 08:00 Magnesium Oxide (Magnesium Oxide) 400 mg BID PO Last administered on 19:48; Start 03/21/18 at 09:00 Miconazole Nitrate (Monistat-Derm) 1 juan PRN BID PRN TP RASH; Start 03/21/18 at 04:15 Multivitamins/ Calcium (Thera-M Plus) 1 tab DAILY PO Last administered on 04/01 09:10; Start 03/21/18 at 09:00 Pramipexole Dihydrochloride (miraPEX) 0.5 mg QHS PO Last administered on 19:49; Start 03/21/18 at 21:00 Pravastatin Sodium (Pravachol) 40 mg DAILY PO Last administered on 04/01/18 09:11; Start 03/21/18 at 09:00 Trazodone HCl (Desyrel) 25 mg DAILYWSUP PO Last administered on 04/01/18 16: 59; Start 03/21/18 at 17:00 Non-Formulary Medication (Trazodone Hcl ) 25 mg PRN DAILY PRN PO AGITATION; Start 03/21/18 at 04:15; Status UNV Trazodone HCl (Desyrel) 75 mg QHS PO Last administered on 04/01/18 19:49; Start 03/21/18 at 21:00 Divalproex Sodium (Depakote Sprinkles) 250 mg HS PO ; Start 03/21/18 at 21:00; Status UNV Divalproex Sodium (Depakote Sprinkles) 250 mg HS PO ; Start 03/21/18 at 21:00; Status UNV Olanzapine (ZyPREXA) 2.5 mg PRN Q2HR PRN PO ANXIETY / AGITATION; Start at 04:15; Status Cancel Olanzapine (ZyPREXA ZYDIS) 5 mg PRN Q2HR PRN PO PSYCHOSIS; Start 03/21/18 at 04 :15 Quetiapine Fumarate (SEROquel) 25 mg QHS PO Last administered on 10/15/18at 19: 48; Start 03/21/18 at 21:00 Docusate Sodium (Colace) 100 mg BID PO Last administered on 04/01/18 19:48; Start 03/21/18 at 21:00 Ferrous Sulfate (Feosol) 650 mg DAILY06 PO Last administered on 04/01/18 06: 16; Start 03/22/18 at 06:00 Ibuprofen (Motrin) 600 mg PRN BID PRN PO INFLAMMATION Last administered on 03/22 02:26; Start 03/21/18 at 11:45 Metformin HCl (Glucophage Xr) 1,000 mg DAILYWBKFT PO Last administered on 04/01 09:06; Start 03/22/18 at 12:00 Diclofenac Sodium (Voltaren) 1 juan TID TP Last administered on 03/22/18 08:01 ; Start 03/21/18 at 14:00; Stop 03/22/18 at 13:01; Status DC Diclofenac Sodium (Voltaren) 1 juan PRN TID PRN TP PAIN; Start 03/22/18 at 13:00 Vitamin D (Vitamin D3) 50,000 unit WEEKLY PO Last administered on 03/29/18at 09 :35; Start 03/22/18 at 13:45 Fluticasone Propionate (Flonase) 2 spray HS NS Last administered on 04/01/18 20:08; Start 03/24/18 at 21:00 Divalproex Sodium (Depakote Er) 1,000 mg QHS PO Last administered on at 19:39; Start 03/25/18 at 21:00; Stop 04/01/18 at 16:33; Status DC Nystatin (Nystop) 1 juan BID TP Last administered on 04/01/18 20:09; Start at 21:00 Rivastigmine (Exelon) 1 patch DAILY TD Last administered on 04/01/18 09:11; Start 03/27/18 at 09:00 Memantine (Namenda) 5 mg 0900,1700 PO Last administered on 04/01/18 16:59; Start 03/27/18 at 17:00 Melatonin 3 mg QHS PO Last administered on 04/01/18 19:48; Start 03/26/18 at 21:00 Divalproex Sodium (Depakote Er) 1,500 mg QHS PO Last administered on at 20:08; Start 04/01/18 at 21:00 Active Scripts Active Reported Keflex (Cephalexin) 500 Mg Capsule 500 Mg PO QID 10 Days Pravastatin Sodium 40 Mg Tablet 40 Mg PO DAILY Carbidopa-Levo Er 50-200 Tab (Carbidopa/Levodopa) 1 Each Tablet.er 1 Each PO HS Sinemet 25-100 Mg Tablet (Carbidopa/Levodopa) 1 Each Tablet 0.5 Tab PO PRN BID PRN Sinemet 25-100 Mg Tablet (Carbidopa/Levodopa) 1 Each Tablet 0.5 Tab PO Q2HR W/A Diazepam 2 Mg Tablet 2 Mg PO PRN Q6HRS PRN Fiber Gummies (Inulin/Chromium Picolinate) 1 Each Tab.chew 2 Ea PO TIDWMEALS Mirapex (Pramipexole Di-Hcl) 0.25 Mg Tablet 0.5 Mg PO HS Linzess (Linaclotide) 145 Mcg Capsule 145 Mcg PO DAILY Trazodone Hcl 50 Mg Tablet 75 Mg PO HS PRN Testosterone Cypionate 100 Mg/1 Ml Vial 150 Mg IM Q10 DAYS Divalproex Sodium 500 Mg Tablet.dr 500 Mg PO HS Hydrocortisone 453.6 Gm Cream..g. 1 Juan TP PRN BID PRN Ferrous Sulfate 325 Mg Tablet 650 Mg PO DAILY Magnesium Oxide 400 Mg Tablet 400 Mg PO BID Miconazole Nitrate 45 Gm Cream.appl 1 Juan TP PRN BID PRN Aspirin 81 Mg Tab.chew 81 Mg PO DAILY Ibuprofen 400 Mg Tablet 600 Mg PO PRN BID PRN Docusate Sodium 100 Mg Capsule 200 Mg PO PRN DAILY PRN Escitalopram Oxalate 20 Mg Tablet 20 Mg PO DAILY Fluticasone Propionate Nasal [place] (Fluticasone Propionate) 16 Gm [place].susp 2 [place] NS DAILY Multivitamins (Multivitamin) 1 Each Tablet 1 Tab PO DAILY Trazodone Hcl 50 Mg Tablet 25 Mg PO DAILYWSUP Trazodone Hcl 50 Mg Tablet 25 Mg PO PRN DAILY PRN Ascorbic Acid 500 Mg Tablet 500 Mg PO DAILY Lactulose 10 Gm/15 Ml Solution 15 Ml PO DAILYWBKFT I have reviewed the current psychotropics carefully including drug interactions. Risk benefit ratio favors no change other than as noted in my dictated progress note. Diagnosis: Problems: (1) Anxiety disorder (2) Lewy body dementia with behavioral disturbance (3) Impulse control disorder (4) Personality disorder in adult SAY PRUETT MD Apr 01, 2018 22:57
--- NOTE | 2018-04-01 23:56 | PN ---
DATE: 03/31/2018 PSYCHIATRIC PROGRESS NOTE This late entry 03/31/2018 covers elements not covered in my initial note. SUBJECTIVE: I met with the patient in the evening. The patient slept 7 hours previous night. The patient did well in the morning. By the evening, he was extremely anxious, agitated, stating his is him. His has left very detailed description of his progressive symptoms over the years, reflective of his mood disorder and progressive memory deficits. This should be helpful for Dr. Flanagan's part of the psychological testing as well. The patient is obsessed about his toes and wanting the nails clipped. I will defer to the nursing staff and Dr. Rahman. REVIEW OF SYSTEMS: Ambulation impaired with walker. No CV, , pulmonary, eye, ENT system symptoms on review. Slept 7 hours. MENTAL STATUS EXAM: Reasonably oriented to himself and situation. Speech is coherent, a little pressured at times. Abstraction fair, computation impaired, able to do two steps on serial 7's. No active suicidal or homicidal ideation. He remains anxious, very intense in his presentation. LABORATORY DATA: Reviewed. IMPRESSION: Possible major neurocognitive disorder, Lewy body with delusions, behavioral disturbance, impulse control disorder; anxiety disorder, unspecified; bipolar 1 disorder, mixed. PLAN: Continue current psychotropics. Check labs and valproic acid level, then adjust Depakote to reach therapeutic level. Continue Lexapro, trazodone together with Exelon, Namenda, melatonin for now. MAN Rosa PRUETT MD DR: MARCEL/nano JOB#: [id number] / [id number]
[2018-04-02] MEDS: CARBIDOPA/LEVODOPA 25/100MG TABLET PO SCH ×9 (05:24→22:00)
[2018-04-02] MEDS: FERROUS SULFATE 325 MG TABLET. PO SCH (05:24)
[2018-04-02] MEDS: metFORMIN XR 500 MG TAB.ER.24H PO SCH (08:49)
[2018-04-02] MEDS: CITALOPRAM 20 MG TABLET. PO SCH (08:49)
[2018-04-02] MEDS: DOCUSATE SODIUM 100 MG CAPSULE PO SCH ×2 (08:49→20:14)
[2018-04-02] MEDS: MEMANTINE 5 MG TABLET. PO SCH ×2 (08:49→17:33)
[2018-04-02] MEDS: MULTIVITAMIN with MINERAL TABLET. PO SCH (08:49)
[2018-04-02] MEDS: PRAVASTATIN 20 MG TABLET. PO SCH (08:49)
[2018-04-02] MEDS: ASPIRIN 81 MG TAB.CHEW PO SCH (08:49)
[2018-04-02] MEDS: ASCORBIC ACID 500 MG TABLET PO SCH (08:49)
[2018-04-02] MEDS: LACTULOSE 20 GM/30 ML SOLUTION. PO SCH (08:50)
[2018-04-02] MEDS: RIVASTIGMINE 4.6MG PATCH. TD SCH (08:50)
[2018-04-02] MEDS: MAGNESIUM OXIDE 400 MG TABLET PO SCH ×2 (09:27→20:14)
[2018-04-02] MEDS: LINACLOTIDE 145 MCG CAPSULE. PO SCH (09:27)
[2018-04-02] MEDS: NYSTATIN TOPICAL POWDER 15GM BOTTLE. TP SCH ×2 (09:29→20:17)
[2018-04-02 16:28] VITALS: BP 108/75
[2018-04-02] MEDS: traZODone 50 MG TABLET. PO SCH ×2 (17:34→20:13)
[2018-04-02] MEDS: ACETAMINOPHEN 325 MG TABLET PO PRN (17:34)
[2018-04-02] MEDS: PRAMIPEXOLE 0.5 MG TABLET. PO SCH (20:14)
[2018-04-02] MEDS: MELATONIN 3 MG TABLET PO SCH (20:14)
[2018-04-02] MEDS: DIVALPROEX ER 500 MG TAB.ER.24H PO SCH (20:14)
[2018-04-02] MEDS: CARBIDOPA/LEVODOPA CR 50/200MG TABLET.SA PO SCH (20:14)
[2018-04-02] MEDS: QUEtiapine 25 MG TABLET. PO SCH (20:14)
[2018-04-02] MEDS: FLUTICASONE 50MCG/NASAL SPRAY 16GM BOTTLE. NS SCH (20:17)
--- NOTE | 2018-04-02 23:14 | PDOC ---
Exam Note: Сергей Note: Please also refer to the separate dictated note~for this date of service dictated separately.~Patient seen individually. Discussed the patient with Nursing staff reviewed the chart.~Reviewed interim history and current functioning. Reviewed vital signs,~Labs/ Radiology~and current medications noted below. Continue current treatment with the changes noted in the dictated addendum note Assessment: Vital Signs: Vital Signs Date Time Temp Pulse Resp B/P (MAP) Pulse Ox O2 Delivery O2 Flow Rate FiO2 04/02/18 16:28 98.1 76 20 108/75 (86) 96 03/29/18 15:54 Room Air I&O Intake and Output 04/02/18 07:00 Intake Total 1220 ml Balance 1220 ml Intake Oral 1220 ml Current Medications: Meds: Current Medications Influenza Virus Vaccine (Afluria Trivalent [id number] Syringe) 0.5 ml ONCE ONCE VAX IM Last administered on 03/21/18at 13:58; Start 03/21/18 at 09:00; Stop 03/21/18 at 09:01; Status DC Acetaminophen (Tylenol) 650 mg PRN Q6HRS PRN PO PAIN / TEMP Last administered on 04/02/18at 17:34; Start 03/21/18 at 04:15 Multi-Ingredient Ointment (Analgesic [place]) 1 juan PRN QID PRN TP MUSCLE PAIN; Start 03/21/18 at 04:15 Al Hydroxide/Mg Hydroxide (Mylanta Plus Xs) 15 ml PRN AFTMEALHC PRN PO DYSPEPSIA; Start 03/21/18 at 04:15 Magnesium Hydroxide (Milk Of Magnesia) 2,400 mg PRN QHS PRN PO CONSTIPATION; Start 03/21/18 at 04:15 Info (FLU VACCINE per PROTOCOL) 1 ea PRN 1X PRN MC PER PROTOCOL; Start at 04:30; Status Cancel Ascorbic Acid (Vitamin C) 500 mg DAILY PO Last administered on 04/02/18at 08:49 ; Start 03/21/18 at 09:00 Carbidopa/Levodopa (Sinemet 25/100) 0.5 tab PRN BID PRN PO Tremors; Start 03/21 at 04:15; Status Cancel Carbidopa/Levodopa (Sinemet 25/100) 0.5 tab Q2HR W/A PO Last administered on 04/02/18at 20:16; Start 03/21/18 at 06:00 Ferrous Sulfate (Feosol) 650 mg DAILY PO ; Start 03/21/18 at 09:00; Stop at 11:35; Status DC Ibuprofen (Motrin) 600 mg PRN BID PRN PO PAIN; Start 03/21/18 at 04:15; Stop 03/21/18 at 11:44; Status DC Linaclotide (Linzess) 145 mcg DAILY PO Last administered on 04/02/18at 09:27; Start 03/21/18 at 09:00 Aspirin (Children'S Aspirin) 81 mg DAILYWBKFT PO Last administered on at 08:49; Start 03/21/18 at 08:00 Carbidopa/Levodopa (Sinemet Cr) 1 tab.sa HS PO Last administered on 04/02/18at 20:14; Start 03/21/18 at 21:00 Diazepam (Valium) 2 mg PRN Q6HRS PRN PO ANXIETY / AGITATION Last administered on 04/01/18at 20:09; Start 03/21/18 at 04:15 Divalproex Sodium (Depakote Er) 500 mg QHS PO Last administered on 03/24/18at 20 :17; Start 03/22/18 at 21:00; Stop 03/25/18 at 16:52; Status DC Docusate Sodium (Colace) 200 mg PRN DAILY PRN PO CONSTIPATION; Start 03/21/18 at 04:15; Stop 03/21/18 at 11:34; Status DC Citalopram Hydrobromide (CeleXA) 40 mg DAILY PO Last administered on at 08:49; Start 03/21/18 at 09:00 Fluticasone Propionate (Flonase) 2 spray DAILY NS Last administered on at 08:03; Start 03/21/18 at 09:00; Stop 03/24/18 at 10:03; Status DC Hydrocortisone (Cortaid) 1 juan PRN BID PRN TP ITCH/RASH Last administered on at 10:47; Start 03/21/18 at 07:45 Non-Formulary Medication (Inulin/Chromium Picolinate (Fiber Gummies)) 2 ea TIDWMEALS PO ; Start 03/21/18 at 08:00; Status UNV Lactulose (Lactulose) 15 gm DAILYWBKFT PO Last administered on 04/02/18at 08:50 ; Start 03/21/18 at 08:00 Magnesium Oxide (Magnesium Oxide) 400 mg BID PO Last administered on at 20:14; Start 03/21/18 at 09:00 Miconazole Nitrate (Monistat-Derm) 1 juan PRN BID PRN TP RASH; Start 03/21/18 at 04:15 Multivitamins/ Calcium (Thera-M Plus) 1 tab DAILY PO Last administered on 04/02 08:49; Start 03/21/18 at 09:00 Pramipexole Dihydrochloride (miraPEX) 0.5 mg QHS PO Last administered on at 20:14; Start 03/21/18 at 21:00 Pravastatin Sodium (Pravachol) 40 mg DAILY PO Last administered on 04/02/18at 08:49; Start 03/21/18 at 09:00 Trazodone HCl (Desyrel) 25 mg DAILYWSUP PO Last administered on 04/02/18at 17: 34; Start 03/21/18 at 17:00 Non-Formulary Medication (Trazodone Hcl ) 25 mg PRN DAILY PRN PO AGITATION; Start 03/21/18 at 04:15; Status UNV Trazodone HCl (Desyrel) 75 mg QHS PO Last administered on 04/02/18at 20:13; Start 03/21/18 at 21:00 Divalproex Sodium (Depakote Sprinkles) 250 mg HS PO ; Start 03/21/18 at 21:00; Status UNV Divalproex Sodium (Depakote Sprinkles) 250 mg HS PO ; Start 03/21/18 at 21:00; Status UNV Olanzapine (ZyPREXA) 2.5 mg PRN Q2HR PRN PO ANXIETY / AGITATION; Start at 04:15; Status Cancel Olanzapine (ZyPREXA ZYDIS) 5 mg PRN Q2HR PRN PO PSYCHOSIS; Start 03/21/18 at 04 :15 Quetiapine Fumarate (SEROquel) 25 mg QHS PO Last administered on 04/02/18at 20: 14; Start 03/21/18 at 21:00 Docusate Sodium (Colace) 100 mg BID PO Last administered on 04/02/18 20:14; Start 03/21/18 at 21:00 Ferrous Sulfate (Feosol) 650 mg DAILY06 PO Last administered on 04/02/18 05: 24; Start 03/22/18 at 06:00 Ibuprofen (Motrin) 600 mg PRN BID PRN PO INFLAMMATION Last administered on 03/22 02:26; Start 03/21/18 at 11:45 Metformin HCl (Glucophage Xr) 1,000 mg DAILYWBKFT PO Last administered on 04/02 08:49; Start 03/22/18 at 12:00 Diclofenac Sodium (Voltaren) 1 juan TID TP Last administered on 03/22/18 08:01 ; Start 03/21/18 at 14:00; Stop 03/22/18 at 13:01; Status DC Diclofenac Sodium (Voltaren) 1 juan PRN TID PRN TP PAIN; Start 03/22/18 at 13:00 Vitamin D (Vitamin D3) 50,000 unit WEEKLY PO Last administered on 03/29/18 09 :35; Start 03/22/18 at 13:45 Fluticasone Propionate (Flonase) 2 spray HS NS Last administered on 04/02/18 20:17; Start 03/24/18 at 21:00 Divalproex Sodium (Depakote Er) 1,000 mg QHS PO Last administered on at 19:39; Start 03/25/18 at 21:00; Stop 04/01/18 at 16:33; Status DC Nystatin (Nystop) 1 juan BID TP Last administered on 04/02/18 20:17; Start at 21:00 Rivastigmine (Exelon) 1 patch DAILY TD Last administered on 04/02/18at 08:50; Start 03/27/18 at 09:00 Memantine (Namenda) 5 mg 0900,1700 PO Last administered on 04/02/18 17:33; Start 03/27/18 at 17:00 Melatonin 3 mg QHS PO Last administered on 04/02/18 20:14; Start 10/9/18 at 21:00 Divalproex Sodium (Depakote Er) 1,500 mg QHS PO Last administered on at 20:14; Start 04/01/18 at 21:00 Active Scripts Active Reported Keflex (Cephalexin) 500 Mg Capsule 500 Mg PO QID 10 Days Pravastatin Sodium 40 Mg Tablet 40 Mg PO DAILY Carbidopa-Levo Er 50-200 Tab (Carbidopa/Levodopa) 1 Each Tablet.er 1 Each PO HS Sinemet 25-100 Mg Tablet (Carbidopa/Levodopa) 1 Each Tablet 0.5 Tab PO PRN BID PRN Sinemet 25-100 Mg Tablet (Carbidopa/Levodopa) 1 Each Tablet 0.5 Tab PO Q2HR W/A Diazepam 2 Mg Tablet 2 Mg PO PRN Q6HRS PRN Fiber Gummies (Inulin/Chromium Picolinate) 1 Each Tab.chew 2 Ea PO TIDWMEALS Mirapex (Pramipexole Di-Hcl) 0.25 Mg Tablet 0.5 Mg PO HS Linzess (Linaclotide) 145 Mcg Capsule 145 Mcg PO DAILY Trazodone Hcl 50 Mg Tablet 75 Mg PO HS PRN Testosterone Cypionate 100 Mg/1 Ml Vial 150 Mg IM Q10 DAYS Divalproex Sodium 500 Mg Tablet.dr 500 Mg PO HS Hydrocortisone 453.6 Gm Cream..g. 1 Juan TP PRN BID PRN Ferrous Sulfate 325 Mg Tablet 650 Mg PO DAILY Magnesium Oxide 400 Mg Tablet 400 Mg PO BID Miconazole Nitrate 45 Gm Cream.appl 1 Juan TP PRN BID PRN Aspirin 81 Mg Tab.chew 81 Mg PO DAILY Ibuprofen 400 Mg Tablet 600 Mg PO PRN BID PRN Docusate Sodium 100 Mg Capsule 200 Mg PO PRN DAILY PRN Escitalopram Oxalate 20 Mg Tablet 20 Mg PO DAILY Fluticasone Propionate Nasal [place] (Fluticasone Propionate) 16 Gm [place].susp 2 [place] NS DAILY Multivitamins (Multivitamin) 1 Each Tablet 1 Tab PO DAILY Trazodone Hcl 50 Mg Tablet 25 Mg PO DAILYWSUP Trazodone Hcl 50 Mg Tablet 25 Mg PO PRN DAILY PRN Ascorbic Acid 500 Mg Tablet 500 Mg PO DAILY Lactulose 10 Gm/15 Ml Solution 15 Ml PO DAILYWBKFT I have reviewed the current psychotropics carefully including drug interactions. Risk benefit ratio favors no change other than as noted in my dictated progress note. Diagnosis: Problems: (1) Anxiety disorder (2) Lewy body dementia with behavioral disturbance (3) Impulse control disorder (4) Personality disorder in adult SAY PRUETT MD Apr 02, 2018 23:14
--- NOTE | 2018-04-03 04:46 | PN ---
DATE: 04/01/2018 This is a late entry for 04/01/2018 covers elements not covered in my initial note. SUBJECTIVE: I met with the patient in the evening. The patient slept 5-1/2 hours previous night, has been pleasant, has made vague suicidal statements when he gets frustrated with circumstances. He told the nursing staff that he considered electrocuting himself. When I questioned him directly on this, he denied any intent or plan and stated this was more an expression of his frustration. Nevertheless, I have asked the nursing staff to move his room closer to the nursing station. He is frustrated that his has decided to divorce him. Labs on the , valproic acid level was 42. REVIEW OF SYSTEMS: Ambulation impaired with walker. No CV, , pulmonary, eye system symptoms on review. He is still distressed by his flexed toes and needs his nails cut and I will defer to Dr. Rahman/Dr. Suarez and the nursing staff. MENTAL STATUS EXAM: Oriented to himself and situation. Speech is coherent at times, somewhat pressured. Abstraction fair. Computation able to do two step serial 7's. No suicidal or homicidal ideation. He is very intense in his presentation, somewhat anxious with some mood lability. LABORATORY DATA: Reviewed. IMPRESSION: Bipolar mood disorder, unspecified, probable dementia, early Lewy body with delusions, anxiety disorder, unspecified. PLAN: Valproic acid level on the subtherapeutic at 42 on Depakote ER 1000 mg at bedtime. We will increase this to 1500 mg at bedtime. Check CBC, CMP, valproic acid level in 3 days. Continue rest unchanged. MAN Rosa PRUETT MD DR: MARCEL/nano JOB#: [id number] / [id number]
[2018-04-03 05:59] VITALS: BP 120/72
[2018-04-03] MEDS: FERROUS SULFATE 325 MG TABLET. PO SCH (06:30)
[2018-04-03] MEDS: CARBIDOPA/LEVODOPA 25/100MG TABLET PO SCH ×9 (06:31→22:00)
[2018-04-03] MEDS: IBUPROFEN 600 MG TABLET. PO PRN (06:31)
[2018-04-03] MEDS: MAGNESIUM OXIDE 400 MG TABLET PO SCH ×2 (07:58→19:45)
[2018-04-03] MEDS: ASCORBIC ACID 500 MG TABLET PO SCH (07:58)
[2018-04-03] MEDS: MEMANTINE 5 MG TABLET. PO SCH ×2 (07:58→16:33)
[2018-04-03] MEDS: CITALOPRAM 20 MG TABLET. PO SCH (07:58)
[2018-04-03] MEDS: LACTULOSE 20 GM/30 ML SOLUTION. PO SCH (07:58)
[2018-04-03] MEDS: DOCUSATE SODIUM 100 MG CAPSULE PO SCH ×2 (07:58→19:44)
[2018-04-03] MEDS: metFORMIN XR 500 MG TAB.ER.24H PO SCH (07:58)
[2018-04-03] MEDS: PRAVASTATIN 20 MG TABLET. PO SCH (07:59)
[2018-04-03] MEDS: MULTIVITAMIN with MINERAL TABLET. PO SCH (07:59)
[2018-04-03] MEDS: RIVASTIGMINE 4.6MG PATCH. TD SCH (07:59)
[2018-04-03] MEDS: ASPIRIN 81 MG TAB.CHEW PO SCH (07:59)
[2018-04-03] MEDS: LINACLOTIDE 145 MCG CAPSULE. PO SCH (08:00)
[2018-04-03] MEDS: NYSTATIN TOPICAL POWDER 15GM BOTTLE. TP SCH ×2 (09:00→19:46)
[2018-04-03 16:27] VITALS: BP 127/84
[2018-04-03] MEDS: traZODone 50 MG TABLET. PO SCH ×2 (18:05→19:45)
[2018-04-03] MEDS: CARBIDOPA/LEVODOPA CR 50/200MG TABLET.SA PO SCH (19:41)
[2018-04-03] MEDS: QUEtiapine 25 MG TABLET. PO SCH (19:42)
[2018-04-03] MEDS: MELATONIN 3 MG TABLET PO SCH (19:43)
[2018-04-03] MEDS: DIVALPROEX ER 500 MG TAB.ER.24H PO SCH (19:44)
[2018-04-03] MEDS: PRAMIPEXOLE 0.5 MG TABLET. PO SCH (19:46)
[2018-04-03] MEDS: FLUTICASONE 50MCG/NASAL SPRAY 16GM BOTTLE. NS SCH (20:59)
--- NOTE | 2018-04-03 22:38 | PN ---
DATE: 04/02/2018 PSYCHIATRIC PROGRESS NOTE This late entry 04/02/2018 covers elements not covered in my initial note. SUBJECTIVE: I met with the patient in the evening. I have also reviewed 5 page single spaced typed history and behavioral interventions and problems list left by the patient's including circumstances leading to the temporary guardianship and his hospitalization at [facility] and thereafter at [facility] where the [facility]. Reportedly, the patient's family therapist had diagnosed him with delusional disorder, amongst other diagnoses within the context of his Parkinson's disease. The patient slept 5-1/4 hours previous evening. Previous night he was quite frustrated, agitated at the nursing staff not trimming his nails and talked about wanting to electrocute himself, smashed his head on the floor. His room was changed to be closer to the nursing station after nursing staff discussed this with me. He then urinated all over the room, even though he had a urine no close by him and when nursing staff questioned him about it, he stated "because I can." Per nursing report, he has been withdrawn. Reportedly, he had a visit with the spring coiling machine setter with respect to the guardianship hearing. Dr. Flanagan will be performing this neuropsychological testing to help assess his capacity to make decisions for his health and finances and this hopefully will be done on 04/03/2018. REVIEW OF SYSTEMS: Ambulation impaired with walker, difficulty with his flexed toes and nails that rub on the floor. He does have a nail file given to him by staff, but we have this removed given his above threats. I have questioned him closely on the suicidal statements and he denies any actively. No CV, , pulmonary, eye system symptoms on review. MENTAL STATUS EXAM: Reasonably oriented. Speech is coherent, somewhat rapid at times. He is quite intense in his presentation. Abstraction fair. Computation able to do two steps on serial 7's as is typical for him. No active suicidal or homicidal ideation. Attention span short, language function intact. Mood and affect somewhat anxious, labile. LABORATORY DATA: Reviewed. IMPRESSION: Probable bipolar 1 disorder, unspecified; major neurocognitive disorder, possibly Lewy body with delusions, depression; anxiety disorder, unspecified. Cognitively, he is reasonably intact and some of the symptoms of Lewy body presented as his mood lability and psychotic symptoms and intensity of his interactions with changes during the day. PLAN: From a psychiatric standpoint, I would leave everything unchanged for now. He remains on Depakote, dosage has been adjusted. Repeat labs on 04/04/2018. Continue Lexapro, trazodone, Exelon patch, Namenda, and melatonin. MAN Rosa PRUETT MD DR: MARCEL/nano JOB#: [id number] / [id number]
--- NOTE | 2018-04-03 23:18 | PDOC ---
Exam Note: Сергей Note: Please also refer to the separate dictated note~for this date of service dictated separately.~Patient seen individually. Discussed the patient with Nursing staff reviewed the chart.~Reviewed interim history and current functioning. Reviewed vital signs,~Labs/ Radiology~and current medications noted below. Continue current treatment with the changes noted in the dictated addendum note Assessment: Vital Signs: Vital Signs Date Time Temp Pulse Resp B/P (MAP) Pulse Ox O2 Delivery O2 Flow Rate FiO2 04/03/18 16:27 97.8 90 22 127/84 (98) 97 03/29/18 15:54 Room Air I&O Intake and Output 04/03/18 07:00 Intake Total 1320 ml Balance 1320 ml Intake Oral 1320 ml Current Medications: Meds: Current Medications Influenza Virus Vaccine (Afluria Trivalent 2190-3142 Syringe) 0.5 ml ONCE ONCE VAX IM Last administered on 03/21/18at 13:58; Start 03/21/18 at 09:00; Stop 03/21/18 at 09:01; Status DC Acetaminophen (Tylenol) 650 mg PRN Q6HRS PRN PO PAIN / TEMP Last administered on 04/02/18at 17:34; Start 03/21/18 at 04:15 Multi-Ingredient Ointment (Analgesic [place]) 1 juan PRN QID PRN TP MUSCLE PAIN; Start 03/21/18 at 04:15 Al Hydroxide/Mg Hydroxide (Mylanta Plus Xs) 15 ml PRN AFTMEALHC PRN PO DYSPEPSIA; Start 03/21/18 at 04:15 Magnesium Hydroxide (Milk Of Magnesia) 2,400 mg PRN QHS PRN PO CONSTIPATION; Start 03/21/18 at 04:15 Info (FLU VACCINE per PROTOCOL) 1 ea PRN 1X PRN MC PER PROTOCOL; Start at 04:30; Status Cancel Ascorbic Acid (Vitamin C) 500 mg DAILY PO Last administered on 04/03/18at 07:58 ; Start 03/21/18 at 09:00 Carbidopa/Levodopa (Sinemet 25/100) 0.5 tab PRN BID PRN PO Tremors; Start 03/21 at 04:15; Status Cancel Carbidopa/Levodopa (Sinemet 25/100) 0.5 tab Q2HR W/A PO Last administered on 04/03/18at 18:05; Start 03/21/18 at 06:00 Ferrous Sulfate (Feosol) 650 mg DAILY PO ; Start 03/21/18 at 09:00; Stop at 11:35; Status DC Ibuprofen (Motrin) 600 mg PRN BID PRN PO PAIN; Start 03/21/18 at 04:15; Stop 03/21/18 at 11:44; Status DC Linaclotide (Linzess) 145 mcg DAILY PO Last administered on 04/03/18at 08:00; Start 03/21/18 at 09:00 Aspirin (Children'S Aspirin) 81 mg DAILYWBKFT PO Last administered on at 07:59; Start 03/21/18 at 08:00 Carbidopa/Levodopa (Sinemet Cr) 1 tab.sa HS PO Last administered on 04/03/18at 19:41; Start 03/21/18 at 21:00 Diazepam (Valium) 2 mg PRN Q6HRS PRN PO ANXIETY / AGITATION Last administered on 04/01/18at 20:09; Start 03/21/18 at 04:15 Divalproex Sodium (Depakote Er) 500 mg QHS PO Last administered on 03/24/18at 20 :17; Start 03/22/18 at 21:00; Stop 03/25/18 at 16:52; Status DC Docusate Sodium (Colace) 200 mg PRN DAILY PRN PO CONSTIPATION; Start 03/21/18 at 04:15; Stop 03/21/18 at 11:34; Status DC Citalopram Hydrobromide (CeleXA) 40 mg DAILY PO Last administered on at 07:58; Start 03/21/18 at 09:00 Fluticasone Propionate (Flonase) 2 spray DAILY NS Last administered on at 08:03; Start 03/21/18 at 09:00; Stop 03/24/18 at 10:03; Status DC Hydrocortisone (Cortaid) 1 juan PRN BID PRN TP ITCH/RASH Last administered on at 10:47; Start 03/21/18 at 07:45 Non-Formulary Medication (Inulin/Chromium Picolinate (Fiber Gummies)) 2 ea TIDWMEALS PO ; Start 03/21/18 at 08:00; Status UNV Lactulose (Lactulose) 15 gm DAILYWBKFT PO Last administered on 04/03/18at 07:58 ; Start 03/21/18 at 08:00 Magnesium Oxide (Magnesium Oxide) 400 mg BID PO Last administered on at 19:45; Start 03/21/18 at 09:00 Miconazole Nitrate (Monistat-Derm) 1 juan PRN BID PRN TP RASH; Start 03/21/18 at 04:15 Multivitamins/ Calcium (Thera-M Plus) 1 tab DAILY PO Last administered on 04/03at 07:59; Start 03/21/18 at 09:00 Pramipexole Dihydrochloride (miraPEX) 0.5 mg QHS PO Last administered on at 19:46; Start 03/21/18 at 21:00 Pravastatin Sodium (Pravachol) 40 mg DAILY PO Last administered on 04/03/18at 07:59; Start 03/21/18 at 09:00 Trazodone HCl (Desyrel) 25 mg DAILYWSUP PO Last administered on 04/03/18at 18: 05; Start 03/21/18 at 17:00 Non-Formulary Medication (Trazodone Hcl ) 25 mg PRN DAILY PRN PO AGITATION; Start 03/21/18 at 04:15; Status UNV Trazodone HCl (Desyrel) 75 mg QHS PO Last administered on 04/03/18at 19:45; Start 03/21/18 at 21:00 Divalproex Sodium (Depakote Sprinkles) 250 mg HS PO ; Start 03/21/18 at 21:00; Status UNV Divalproex Sodium (Depakote Sprinkles) 250 mg HS PO ; Start 03/21/18 at 21:00; Status UNV Olanzapine (ZyPREXA) 2.5 mg PRN Q2HR PRN PO ANXIETY / AGITATION; Start at 04:15; Status Cancel Olanzapine (ZyPREXA ZYDIS) 5 mg PRN Q2HR PRN PO PSYCHOSIS; Start 03/21/18 at 04 :15 Quetiapine Fumarate (SEROquel) 25 mg QHS PO Last administered on 04/03/18at 19: 42; Start 03/21/18 at 21:00 Docusate Sodium (Colace) 100 mg BID PO Last administered on 04/03/18 19:44; Start 03/21/18 at 21:00 Ferrous Sulfate (Feosol) 650 mg DAILY06 PO Last administered on 04/03/18at 06: 30; Start 03/22/18 at 06:00 Ibuprofen (Motrin) 600 mg PRN BID PRN PO INFLAMMATION Last administered on at 06:31; Start 03/21/18 at 11:45 Metformin HCl (Glucophage Xr) 1,000 mg DAILYWBKFT PO Last administered on 04/03at 07:58; Start 03/22/18 at 12:00 Diclofenac Sodium (Voltaren) 1 juan TID TP Last administered on 03/22/18at 08:01 ; Start 03/21/18 at 14:00; Stop 03/22/18 at 13:01; Status DC Diclofenac Sodium (Voltaren) 1 juan PRN TID PRN TP PAIN; Start 03/22/18 at 13:00 Vitamin D (Vitamin D3) 50,000 unit WEEKLY PO Last administered on 03/29/18at 09 :35; Start 03/22/18 at 13:45 Fluticasone Propionate (Flonase) 2 spray HS NS Last administered on 04/02/18at 20:17; Start 03/24/18 at 21:00 Divalproex Sodium (Depakote Er) 1,000 mg QHS PO Last administered on at 19:39; Start 03/25/18 at 21:00; Stop 04/01/18 at 16:33; Status DC Nystatin (Nystop) 1 juan BID TP Last administered on 04/03/18at 19:46; Start at 21:00 Rivastigmine (Exelon) 1 patch DAILY TD Last administered on 04/03/18at 07:59; Start 03/27/18 at 09:00 Memantine (Namenda) 5 mg 0900,1700 PO Last administered on 04/03/18at 16:33; Start 03/27/18 at 17:00 Melatonin 3 mg QHS PO Last administered on 04/03/18at 19:43; Start 10/9/18 at 21:00 Divalproex Sodium (Depakote Er) 1,500 mg QHS PO Last administered on at 19:44; Start 04/01/18 at 21:00 Active Scripts Active Reported Keflex (Cephalexin) 500 Mg Capsule 500 Mg PO QID 10 Days Pravastatin Sodium 40 Mg Tablet 40 Mg PO DAILY Carbidopa-Levo Er 50-200 Tab (Carbidopa/Levodopa) 1 Each Tablet.er 1 Each PO HS Sinemet 25-100 Mg Tablet (Carbidopa/Levodopa) 1 Each Tablet 0.5 Tab PO PRN BID PRN Sinemet 25-100 Mg Tablet (Carbidopa/Levodopa) 1 Each Tablet 0.5 Tab PO Q2HR W/A Diazepam 2 Mg Tablet 2 Mg PO PRN Q6HRS PRN Fiber Gummies (Inulin/Chromium Picolinate) 1 Each Tab.chew 2 Ea PO TIDWMEALS Mirapex (Pramipexole Di-Hcl) 0.25 Mg Tablet 0.5 Mg PO HS Linzess (Linaclotide) 145 Mcg Capsule 145 Mcg PO DAILY Trazodone Hcl 50 Mg Tablet 75 Mg PO HS PRN Testosterone Cypionate 100 Mg/1 Ml Vial 150 Mg IM Q10 DAYS Divalproex Sodium 500 Mg Tablet.dr 500 Mg PO HS Hydrocortisone 453.6 Gm Cream..g. 1 Juan TP PRN BID PRN Ferrous Sulfate 325 Mg Tablet 650 Mg PO DAILY Magnesium Oxide 400 Mg Tablet 400 Mg PO BID Miconazole Nitrate 45 Gm Cream.appl 1 Juan TP PRN BID PRN Aspirin 81 Mg Tab.chew 81 Mg PO DAILY Ibuprofen 400 Mg Tablet 600 Mg PO PRN BID PRN Docusate Sodium 100 Mg Capsule 200 Mg PO PRN DAILY PRN Escitalopram Oxalate 20 Mg Tablet 20 Mg PO DAILY Fluticasone Propionate Nasal [place] (Fluticasone Propionate) 16 Gm [place].susp 2 [place] NS DAILY Multivitamins (Multivitamin) 1 Each Tablet 1 Tab PO DAILY Trazodone Hcl 50 Mg Tablet 25 Mg PO DAILYWSUP Trazodone Hcl 50 Mg Tablet 25 Mg PO PRN DAILY PRN Ascorbic Acid 500 Mg Tablet 500 Mg PO DAILY Lactulose 10 Gm/15 Ml Solution 15 Ml PO DAILYWBKFT I have reviewed the current psychotropics carefully including drug interactions. Risk benefit ratio favors no change other than as noted in my dictated progress note. Diagnosis: Problems: (1) Anxiety disorder (2) Lewy body dementia with behavioral disturbance (3) Impulse control disorder (4) Personality disorder in adult SAY PRUETT MD Apr 03, 2018 23:18
[2018-04-04] MEDS: FERROUS SULFATE 325 MG TABLET. PO SCH (06:06)
[2018-04-04] MEDS: CARBIDOPA/LEVODOPA 25/100MG TABLET PO SCH ×9 (06:07→21:19)
[2018-04-04 06:11] VITALS: BP 128/78
[2018-04-04 06:51] LABS: BASO % 1 % (0-3); EOS # 0.2 x10^3/uL (0.0-0.7); EOS % 3 % (0-3); HEMATOCRIT 39.5 % (39.0-53.0); HEMOGLOBIN 13.3 g/dL (13.0-17.5); LYMPH # 1.4 x10^3/uL (1.0-4.8); LYMPH % 17 % (24-48); MEAN CORPUSCULAR HEMOGLOBIN 31 pg (25-35); MEAN CORPUSCULAR HGB CONC 34 g/dL (31-37); MEAN CORPUSCULAR VOLUME 91 fL (79-100); MONO # 0.8 x10^3/uL (0.0-1.1); MONO % 9 % (0-9); NEUT # 5.8 x10^3uL (1.8-7.7); NEUT % 70 % (31-73); PLATELET COUNT 188 x10^3/uL (140-400); RED BLOOD COUNT 4.35 x10^6/uL (4.30-5.70); RED CELL DISTRIBUTION WIDTH 14.3 % (11.5-14.5); WHITE BLOOD COUNT 8.3 x10^3/uL (4.0-11.0)
[2018-04-04 07:06] LABS: ALBUMIN 2.9 g/dL (3.4-5.0); ALK PHOS 66 U/L (46-116); ALT (SGPT) 14 U/L (16-63); ANION GAP 4 (6-14); AST (SGOT) 14 U/L (15-37); BLOOD UREA NITROGEN 16 mg/dL (8-26); BUN/CREATININE RATIO 20 (6-20); CALCIUM 8.1 mg/dL (8.5-10.1); CARBON DIOXIDE 33 mmol/L (21-32); CHLORIDE 101 mmol/L (98-107); CREATININE 0.8 mg/dL (0.7-1.3); GFR 96.7; GLUCOSE 83 mg/dL (70-99); POTASSIUM 4.1 mmol/L (3.5-5.1); SODIUM 138 mmol/L (136-145); TOTAL BILIRUBIN 0.8 mg/dL (0.2-1.0); TOTAL PROTEIN 5.8 g/dL (6.4-8.2)
[2018-04-04 07:12] LABS: VAL ACID 50 mcg/mL (50-100)
[2018-04-04] MEDS: MEMANTINE 5 MG TABLET. PO SCH ×2 (08:08→16:32)
[2018-04-04] MEDS: LACTULOSE 20 GM/30 ML SOLUTION. PO SCH (08:08)
[2018-04-04] MEDS: metFORMIN XR 500 MG TAB.ER.24H PO SCH (08:08)
[2018-04-04] MEDS: MAGNESIUM OXIDE 400 MG TABLET PO SCH ×2 (08:08→19:35)
[2018-04-04] MEDS: ASPIRIN 81 MG TAB.CHEW PO SCH (08:08)
[2018-04-04] MEDS: ASCORBIC ACID 500 MG TABLET PO SCH (08:08)
[2018-04-04] MEDS: RIVASTIGMINE 4.6MG PATCH. TD SCH (08:09)
[2018-04-04] MEDS: DOCUSATE SODIUM 100 MG CAPSULE PO SCH ×2 (08:09→19:32)
[2018-04-04] MEDS: MULTIVITAMIN with MINERAL TABLET. PO SCH (08:13)
[2018-04-04] MEDS: PRAVASTATIN 20 MG TABLET. PO SCH (08:15)
[2018-04-04] MEDS: LINACLOTIDE 145 MCG CAPSULE. PO SCH (08:15)
[2018-04-04] MEDS: NYSTATIN TOPICAL POWDER 15GM BOTTLE. TP SCH ×2 (08:15→19:36)
[2018-04-04] MEDS: CITALOPRAM 20 MG TABLET. PO SCH (08:15)
[2018-04-04 16:08] VITALS: BP 122/88
[2018-04-04] MEDS: traZODone 50 MG TABLET. PO SCH ×2 (16:32→19:34)
[2018-04-04] MEDS: FLUTICASONE 50MCG/NASAL SPRAY 16GM BOTTLE. NS SCH (19:32)
[2018-04-04] MEDS: MELATONIN 3 MG TABLET PO SCH (19:32)
[2018-04-04] MEDS: DIVALPROEX ER 500 MG TAB.ER.24H PO SCH (19:34)
[2018-04-04] MEDS: PRAMIPEXOLE 0.5 MG TABLET. PO SCH (19:35)
[2018-04-04] MEDS: QUEtiapine 25 MG TABLET. PO SCH (19:36)
[2018-04-04] MEDS: diazePAM 2 MG TABLET PO PRN (19:42)
[2018-04-04] MEDS: CARBIDOPA/LEVODOPA CR 50/200MG TABLET.SA PO SCH (21:00)
--- NOTE | 2018-04-04 22:56 | PN ---
DATE: 04/03/2018 PSYCHIATRIC PROGRESS NOTE This late entry 04/03/2018 covers elements not covered in my initial note. SUBJECTIVE: I met with the patient in the evening. Per nursing report, the patient slept 8 hours previous night. Previous night he was withdrawn, medication seeking, received ibuprofen and other p.r.n. REVIEW OF SYSTEMS: Ambulation impaired with walker. No CV, , pulmonary, eye system symptoms on review. He is distressed by his toenails since his toes are flexed under his feet and he probably needs to see a plastic parts fabricator trimmer post-discharge. MENTAL STATUS EXAM: The patient is oriented to himself and situation. Speech coherent, less pressured. Abstraction fair. Computation, able to do one step on serial 7's. No active suicidal or homicidal ideation. Attention span short. He is somewhat intense in his presentation consequent to anxiety, but improved. LABORATORY DATA: Reviewed. IMPRESSION: Major depressive disorder, recurrent; anxiety disorder, unspecified; impulse control disorder, unspecified; cognitive disorder, unspecified; possibility of early Lewy body dementia with delusion, depression. Rest unchanged. PLAN: Continue psychotropics from initial note. No further change for now. MAN Rosa PRUETT MD DR: MARCEL/nano JOB#: [id number] / [id number]
--- NOTE | 2018-04-04 23:36 | PDOC ---
Exam Note: Сергей Note: Please also refer to the separate dictated note~for this date of service dictated separately.~Patient seen individually. Discussed the patient with Nursing staff reviewed the chart.~Reviewed interim history and current functioning. Reviewed vital signs,~Labs/ Radiology~and current medications noted below. Continue current treatment with the changes noted in the dictated addendum note Assessment: Vital Signs: Vital Signs Date Time Temp Pulse Resp B/P (MAP) Pulse Ox O2 Delivery O2 Flow Rate FiO2 04/04/18 16:08 97.3 63 18 122/88 (99) 95 03/29/18 15:54 Room Air I&O Intake and Output 04/04/18 07:00 Intake Total 1180 ml Balance 1180 ml Intake Oral 1180 ml Labs: Laboratory Tests Test 04/04/18 06:27 White Blood Count 8.3 x10^3/uL (4.0-11.0) Red Blood Count 4.35 x10^6/uL (4.30-5.70) Hemoglobin 13.3 g/dL (13.0-17.5) Hematocrit 39.5 % (39.0-53.0) Mean Corpuscular Volume 91 fL (79-100) Mean Corpuscular Hemoglobin 31 pg (25-35) Mean Corpuscular Hemoglobin Concent 34 g/dL (31-37) Red Cell Distribution Width 14.3 % (11.5-14.5) Platelet Count 188 x10^3/uL (140-400) Neutrophils (%) (Auto) 70 % (31-73) Lymphocytes (%) (Auto) 17 % (24-48) L Monocytes (%) (Auto) 9 % (0-9) Eosinophils (%) (Auto) 3 % (0-3) Basophils (%) (Auto) 1 % (0-3) Neutrophils # (Auto) 5.8 x10^3uL (1.8-7.7) Lymphocytes # (Auto) 1.4 x10^3/uL (1.0-4.8) Monocytes # (Auto) 0.8 x10^3/uL (0.0-1.1) Eosinophils # (Auto) 0.2 x10^3/uL (0.0-0.7) Basophils # (Auto) 0.0 x10^3/uL (0.0-0.2) Sodium Level 138 mmol/L (136-145) Potassium Level 4.1 mmol/L (3.5-5.1) Chloride Level 101 mmol/L (98-107) Carbon Dioxide Level 33 mmol/L (21-32) H Anion Gap 4 (6-14) L Blood Urea Nitrogen 16 mg/dL (8-26) Creatinine 0.8 mg/dL (0.7-1.3) Estimated GFR (Cockcroft-Gault) 96.7 BUN/Creatinine Ratio 20 (6-20) Glucose Level 83 mg/dL (70-99) Calcium Level 8.1 mg/dL (8.5-10.1) L Total Bilirubin 0.8 mg/dL (0.2-1.0) Aspartate Amino Transferase (AST) 14 U/L (15-37) L Alanine Aminotransferase (ALT) 14 U/L (16-63) L Alkaline Phosphatase 66 U/L (46-116) Total Protein 5.8 g/dL (6.4-8.2) L Albumin 2.9 g/dL (3.4-5.0) L Albumin/Globulin Ratio 1.0 (1.0-1.7) Valproic Acid Level 50 mcg/mL (50-100) Valproic Acid Last Dose Date 04/03/18 Valproic Acid Last Dose Time 2100 Current Medications: Meds: Current Medications Influenza Virus Vaccine (Afluria Trivalent [id number] Syringe) 0.5 ml ONCE ONCE VAX IM Last administered on 03/21/18at 13:58; Start 03/21/18 at 09:00; Stop 03/21/18 at 09:01; Status DC Acetaminophen (Tylenol) 650 mg PRN Q6HRS PRN PO PAIN / TEMP Last administered on 04/02/18at 17:34; Start 03/21/18 at 04:15 Multi-Ingredient Ointment (Analgesic [place]) 1 juan PRN QID PRN TP MUSCLE PAIN; Start 03/21/18 at 04:15 Al Hydroxide/Mg Hydroxide (Mylanta Plus Xs) 15 ml PRN AFTMEALHC PRN PO DYSPEPSIA; Start 03/21/18 at 04:15 Magnesium Hydroxide (Milk Of Magnesia) 2,400 mg PRN QHS PRN PO CONSTIPATION; Start 03/21/18 at 04:15 Info (FLU VACCINE per PROTOCOL) 1 ea PRN 1X PRN MC PER PROTOCOL; Start at 04:30; Status Cancel Ascorbic Acid (Vitamin C) 500 mg DAILY PO Last administered on 04/04/18at 08:08 ; Start 03/21/18 at 09:00 Carbidopa/Levodopa (Sinemet 25/100) 0.5 tab PRN BID PRN PO Tremors; Start 03/21 at 04:15; Status Cancel Carbidopa/Levodopa (Sinemet 25/100) 0.5 tab Q2HR W/A PO Last administered on 04/04/18at 19:32; Start 03/21/18 at 06:00 Ferrous Sulfate (Feosol) 650 mg DAILY PO ; Start 03/21/18 at 09:00; Stop at 11:35; Status DC Ibuprofen (Motrin) 600 mg PRN BID PRN PO PAIN; Start 03/21/18 at 04:15; Stop 03/21/18 at 11:44; Status DC Linaclotide (Linzess) 145 mcg DAILY PO Last administered on 04/04/18at 08:15; Start 03/21/18 at 09:00 Aspirin (Children'S Aspirin) 81 mg DAILYWBKFT PO Last administered on at 08:08; Start 03/21/18 at 08:00 Carbidopa/Levodopa (Sinemet Cr) 1 tab.sa HS PO Last administered on 04/03/18at 19:41; Start 03/21/18 at 21:00 Diazepam (Valium) 2 mg PRN Q6HRS PRN PO ANXIETY / AGITATION Last administered on 04/04/18at 19:42; Start 03/21/18 at 04:15 Divalproex Sodium (Depakote Er) 500 mg QHS PO Last administered on 03/24/18at 20 :17; Start 03/22/18 at 21:00; Stop 03/25/18 at 16:52; Status DC Docusate Sodium (Colace) 200 mg PRN DAILY PRN PO CONSTIPATION; Start 03/21/18 at 04:15; Stop 03/21/18 at 11:34; Status DC Citalopram Hydrobromide (CeleXA) 40 mg DAILY PO Last administered on at 08:15; Start 03/21/18 at 09:00 Fluticasone Propionate (Flonase) 2 spray DAILY NS Last administered on at 08:03; Start 03/21/18 at 09:00; Stop 03/24/18 at 10:03; Status DC Hydrocortisone (Cortaid) 1 juan PRN BID PRN TP ITCH/RASH Last administered on at 10:47; Start 03/21/18 at 07:45 Non-Formulary Medication (Inulin/Chromium Picolinate (Fiber Gummies)) 2 ea TIDWMEALS PO ; Start 03/21/18 at 08:00; Status UNV Lactulose (Lactulose) 15 gm DAILYWBKFT PO Last administered on 04/04/18at 08:08 ; Start 03/21/18 at 08:00 Magnesium Oxide (Magnesium Oxide) 400 mg BID PO Last administered on at 19:35; Start 03/21/18 at 09:00 Miconazole Nitrate (Monistat-Derm) 1 juan PRN BID PRN TP RASH; Start 03/21/18 at 04:15 Multivitamins/ Calcium (Thera-M Plus) 1 tab DAILY PO Last administered on 04/04at 08:13; Start 03/21/18 at 09:00 Pramipexole Dihydrochloride (miraPEX) 0.5 mg QHS PO Last administered on at 19:35; Start 03/21/18 at 21:00 Pravastatin Sodium (Pravachol) 40 mg DAILY PO Last administered on 04/04/18at 08:15; Start 03/21/18 at 09:00 Trazodone HCl (Desyrel) 25 mg DAILYWSUP PO Last administered on 04/04/18at 16: 32; Start 03/21/18 at 17:00 Non-Formulary Medication (Trazodone Hcl ) 25 mg PRN DAILY PRN PO AGITATION; Start 03/21/18 at 04:15; Status UNV Trazodone HCl (Desyrel) 75 mg QHS PO Last administered on 04/04/18at 19:34; Start 03/21/18 at 21:00 Divalproex Sodium (Depakote Sprinkles) 250 mg HS PO ; Start 03/21/18 at 21:00; Status UNV Divalproex Sodium (Depakote Sprinkles) 250 mg HS PO ; Start 03/21/18 at 21:00; Status UNV Olanzapine (ZyPREXA) 2.5 mg PRN Q2HR PRN PO ANXIETY / AGITATION; Start at 04:15; Status Cancel Olanzapine (ZyPREXA ZYDIS) 5 mg PRN Q2HR PRN PO PSYCHOSIS; Start 03/21/18 at 04 :15 Quetiapine Fumarate (SEROquel) 25 mg QHS PO Last administered on 04/04/18at 19: 36; Start 03/21/18 at 21:00 Docusate Sodium (Colace) 100 mg BID PO Last administered on 04/04/18at 19:32; Start 03/21/18 at 21:00 Ferrous Sulfate (Feosol) 650 mg DAILY06 PO Last administered on 04/04/18at 06: 06; Start 03/22/18 at 06:00 Ibuprofen (Motrin) 600 mg PRN BID PRN PO INFLAMMATION Last administered on at 06:31; Start 03/21/18 at 11:45 Metformin HCl (Glucophage Xr) 1,000 mg DAILYWBKFT PO Last administered on 04/04at 08:08; Start 03/22/18 at 12:00 Diclofenac Sodium (Voltaren) 1 juan TID TP Last administered on 03/22/18at 08:01 ; Start 03/21/18 at 14:00; Stop 03/22/18 at 13:01; Status DC Diclofenac Sodium (Voltaren) 1 juan PRN TID PRN TP PAIN; Start 03/22/18 at 13:00 Vitamin D (Vitamin D3) 50,000 unit WEEKLY PO Last administered on 03/29/18at 09 :35; Start 03/22/18 at 13:45 Fluticasone Propionate (Flonase) 2 spray HS NS Last administered on 04/04/18at 19:32; Start 03/24/18 at 21:00 Divalproex Sodium (Depakote Er) 1,000 mg QHS PO Last administered on at 19:39; Start 03/25/18 at 21:00; Stop 04/01/18 at 16:33; Status DC Nystatin (Nystop) 1 juan BID TP Last administered on 04/04/18at 19:36; Start at 21:00 Rivastigmine (Exelon) 1 patch DAILY TD Last administered on 04/04/18at 08:09; Start 03/27/18 at 09:00 Memantine (Namenda) 5 mg 0900,1700 PO Last administered on 04/04/18at 16:32; Start 03/27/18 at 17:00 Melatonin 3 mg QHS PO Last administered on 04/04/18at 19:32; Start 03/26/18 at 21:00 Divalproex Sodium (Depakote Er) 1,500 mg QHS PO Last administered on at 19:34; Start 04/01/18 at 21:00 Active Scripts Active Reported Keflex (Cephalexin) 500 Mg Capsule 500 Mg PO QID 10 Days Pravastatin Sodium 40 Mg Tablet 40 Mg PO DAILY Carbidopa-Levo Er 50-200 Tab (Carbidopa/Levodopa) 1 Each Tablet.er 1 Each PO HS Sinemet 25-100 Mg Tablet (Carbidopa/Levodopa) 1 Each Tablet 0.5 Tab PO PRN BID PRN Sinemet 25-100 Mg Tablet (Carbidopa/Levodopa) 1 Each Tablet 0.5 Tab PO Q2HR W/A Diazepam 2 Mg Tablet 2 Mg PO PRN Q6HRS PRN Fiber Gummies (Inulin/Chromium Picolinate) 1 Each Tab.chew 2 Ea PO TIDWMEALS Mirapex (Pramipexole Di-Hcl) 0.25 Mg Tablet 0.5 Mg PO HS Linzess (Linaclotide) 145 Mcg Capsule 145 Mcg PO DAILY Trazodone Hcl 50 Mg Tablet 75 Mg PO HS PRN Testosterone Cypionate 100 Mg/1 Ml Vial 150 Mg IM Q10 DAYS Divalproex Sodium 500 Mg Tablet.dr 500 Mg PO HS Hydrocortisone 453.6 Gm Cream..g. 1 Juan TP PRN BID PRN Ferrous Sulfate 325 Mg Tablet 650 Mg PO DAILY Magnesium Oxide 400 Mg Tablet 400 Mg PO BID Miconazole Nitrate 45 Gm Cream.appl 1 Juan TP PRN BID PRN Aspirin 81 Mg Tab.chew 81 Mg PO DAILY Ibuprofen 400 Mg Tablet 600 Mg PO PRN BID PRN Docusate Sodium 100 Mg Capsule 200 Mg PO PRN DAILY PRN Escitalopram Oxalate 20 Mg Tablet 20 Mg PO DAILY Fluticasone Propionate Nasal [place] (Fluticasone Propionate) 16 Gm [place].susp 2 [place] NS DAILY Multivitamins (Multivitamin) 1 Each Tablet 1 Tab PO DAILY Trazodone Hcl 50 Mg Tablet 25 Mg PO DAILYWSUP Trazodone Hcl 50 Mg Tablet 25 Mg PO PRN DAILY PRN Ascorbic Acid 500 Mg Tablet 500 Mg PO DAILY Lactulose 10 Gm/15 Ml Solution 15 Ml PO DAILYWBKFT I have reviewed the current psychotropics carefully including drug interactions. Risk benefit ratio favors no change other than as noted in my dictated progress note. Diagnosis: Problems: (1) Anxiety disorder (2) Lewy body dementia with behavioral disturbance (3) Impulse control disorder (4) Personality disorder in adult SAY PRUETT MD Apr 04, 2018 23:36
[2018-04-05] MEDS: CARBIDOPA/LEVODOPA 25/100MG TABLET PO SCH ×9 (06:10→22:00)
[2018-04-05] MEDS: FERROUS SULFATE 325 MG TABLET. PO SCH (06:11)
[2018-04-05 06:22] VITALS: BP 150/108
[2018-04-05] MEDS: MEMANTINE 5 MG TABLET. PO SCH ×2 (08:08→16:32)
[2018-04-05] MEDS: ASPIRIN 81 MG TAB.CHEW PO SCH (08:08)
[2018-04-05] MEDS: LACTULOSE 20 GM/30 ML SOLUTION. PO SCH (08:08)
[2018-04-05] MEDS: metFORMIN XR 500 MG TAB.ER.24H PO SCH (08:08)
[2018-04-05] MEDS: MAGNESIUM OXIDE 400 MG TABLET PO SCH ×2 (08:08→19:37)
[2018-04-05] MEDS: CITALOPRAM 20 MG TABLET. PO SCH (08:09)
[2018-04-05] MEDS: DOCUSATE SODIUM 100 MG CAPSULE PO SCH ×2 (08:09→19:38)
[2018-04-05] MEDS: ASCORBIC ACID 500 MG TABLET PO SCH (08:09)
[2018-04-05] MEDS: CHOLECALCIFEROL (VITAMIN D3) 50,000 UNIT CAPSULE PO SCH (08:09)
[2018-04-05] MEDS: MULTIVITAMIN with MINERAL TABLET. PO SCH (08:09)
[2018-04-05] MEDS: RIVASTIGMINE 4.6MG PATCH. TD SCH (08:10)
[2018-04-05] MEDS: PRAVASTATIN 20 MG TABLET. PO SCH (08:10)
[2018-04-05] MEDS: NYSTATIN TOPICAL POWDER 15GM BOTTLE. TP SCH ×2 (08:12→19:37)
[2018-04-05] MEDS: LINACLOTIDE 145 MCG CAPSULE. PO SCH (08:12)
--- NOTE | 2018-04-05 09:38 | RAD ---
CT of the abdomen and pelvis without contrast, 04/05/2018: HISTORY: Bilateral flank pain Noncontrast scans were obtained utilizing the renal stone protocol. The study was compromised by patient motion artifact. The unopacified liver is unremarkable. No gallbladder abnormality is seen. The pancreas is unremarkable. The spleen is of normal size. The unopacified kidneys show no evidence of obstruction. There is mild bilateral renal cortical scarring. No renal or ureteral calculi are identified. The adrenal glands are unremarkable. Aortoiliac calcific plaquing is present without evidence of aneurysm. No abdominal or pelvic adenopathy is seen. Several prostatic calcifications are noted. The bladder is collapsed. Mild scattered colonic diverticula are present. No paracolonic inflammatory process is seen. A portion of the appendix is visualized and it is unremarkable. No free air or free fluid is evident in the abdomen or pelvis. There is a mild thoracolumbar scoliosis with moderate multilevel degenerative change. There is mild loss of height of the T11 vertebral body which is probably old. Surgical fixation devices are in place related to several old lower rib fractures on the right. IMPRESSION: 1. No urinary tract calculi are identified. 2. Mild colonic diverticulosis. 3. No acute abdominal or pelvic abnormality is detected. PQRS Compliance Statement: One or more of the following individualized dose reduction techniques were utilized for this examination: 1. Automated exposure control 2. Adjustment of the mA and/or kV according to patient size 3. Use of iterative reconstruction technique Electronically signed by: Russell Go MD (04/05/2018 9:34 AM) [facility]
[2018-04-05] MEDS: diazePAM 2 MG TABLET PO PRN (10:39)
[2018-04-05 10:51] LABS: BACTERIA,URINE 0 /HPF (0-FEW); BILIRUBIN,URINE NEG (NEG); CLARITY,URINE CLOUDY; COLOR,URINE YELLOW; GLUCOSE,URINE NEG (NEG); NITRITE,URINE NEG (NEG); RBC,URINE 0 /HPF (0-2); UROBILINOGEN,URINE 0.2 mg/dL (0.2 mg/dL); WBC,URINE 0 /HPF (0-4)
[2018-04-05 10:52] LABS: AMORPHOUS SEDIMENT,UR PRESENT /HPF
[2018-04-05 15:52] VITALS: BP 143/92
[2018-04-05] MEDS: traZODone 50 MG TABLET. PO SCH ×2 (16:32→19:38)
[2018-04-05] MEDS: ACETAMINOPHEN 325 MG TABLET PO PRN (18:19)
[2018-04-05] MEDS: CARBIDOPA/LEVODOPA CR 50/200MG TABLET.SA PO SCH (19:37)
[2018-04-05] MEDS: QUEtiapine 25 MG TABLET. PO SCH (19:38)
[2018-04-05] MEDS: PRAMIPEXOLE 0.5 MG TABLET. PO SCH (19:38)
[2018-04-05] MEDS: DIVALPROEX ER 500 MG TAB.ER.24H PO SCH (19:38)
[2018-04-05] MEDS: MELATONIN 3 MG TABLET PO SCH (19:38)
[2018-04-05] MEDS: FLUTICASONE 50MCG/NASAL SPRAY 16GM BOTTLE. NS SCH (19:38)
--- NOTE | 2018-04-05 23:13 | PN ---
DATE: 04/04/2018 PSYCHIATRIC PROGRESS NOTE This late entry 04/04/2018 covers elements not covered in my initial note. SUBJECTIVE: I met with the patient in the evening and staffed at a treatment team meeting with the entire team in the morning. The patient's , Catie attended the treatment team meeting. We reviewed the patient's history at length, diagnosis, upcoming guardianship hearing, and possible transition to [facility]. He has a court date on Sunday for the guardianship and the assistant city attorney is listed while on the unit. Valproic acid level is 50 on 04/04/2018, therapeutic. Previous evening, the patient put himself on the floor x 2 and has done that during the day, in the evening on 04/04/2018 as well at 2:00 p.m. and 5 p.m. Nursing staff are encouraging him with behavior modification to help turn this around. REVIEW OF SYSTEMS: Ambulation impaired with walker. No CV, , eye, ENT or pulmonary system symptoms on review. MENTAL STATUS EXAM: Oriented to himself and situation. Speech is coherent, has some latency. Abstraction fair, computation impaired, language function intact, attention span short. Mood and affect remain somewhat withdrawn. LABORATORY DATA: Reviewed. IMPRESSION: Major depressive disorder with psychotic features, probable Lewy body dementia with delusion, depression; anxiety disorder, unspecified; impulse control disorder, unspecified; rule out bipolar 1 disorder, unspecified. PLAN: No change from a psychiatric standpoint. We will continue his current psychotropics, Depakote, trazodone, Exelon, Namenda, and melatonin, Celexa, and Seroquel. MAN Rosa PRUETT MD DR: MARCEL/nano JOB#: [id number] / [id number]
--- NOTE | 2018-04-05 23:20 | PDOC ---
Exam Note: Сергей Note: Please also refer to the separate dictated note~for this date of service dictated separately.~Patient seen individually. Discussed the patient with Nursing staff reviewed the chart.~Reviewed interim history and current functioning. Reviewed vital signs,~Labs/ Radiology~and current medications noted below. Continue current treatment with the changes noted in the dictated addendum note Assessment: Vital Signs: Vital Signs Date Time Temp Pulse Resp B/P (MAP) Pulse Ox O2 Delivery O2 Flow Rate FiO2 04/05/18 15:52 97.9 71 22 143/92 (109) 93 Room Air I&O Intake and Output 04/05/18 07:00 Intake Total 1080 ml Balance 1080 ml Intake Oral 1080 ml Labs: Laboratory Tests Test 04/05/18 10:13 Urine Collection Type Void Urine Color Yellow Urine Clarity Cloudy Urine pH 8.5 Urine Specific [place] 1.015 Urine Protein Neg (NEG-TRACE) Urine Glucose (UA) Neg mg/dL (NEG) Urine Ketones (Stick) 15 mg/dL (NEG) Urine Blood Neg (NEG) Urine Nitrite Neg (NEG) Urine Bilirubin Neg (NEG) Urine Urobilinogen Dipstick 0.2 mg/dL (0.2 mg/dL) Urine Leukocyte Esterase Neg (NEG) Urine RBC 0 /HPF (0-2) Urine WBC 0 /HPF (0-4) Urine Squamous Epithelial Cells None /LPF Urine Amorphous Sediment Present /HPF Urine Bacteria 0 /HPF (0-FEW) Current Medications: Meds: Current Medications Influenza Virus Vaccine (Afluria Trivalent 8790-0243 Syringe) 0.5 ml ONCE ONCE VAX IM Last administered on 03/21/18at 13:58; Start 03/21/18 at 09:00; Stop 03/21/18 at 09:01; Status DC Acetaminophen (Tylenol) 650 mg PRN Q6HRS PRN PO PAIN / TEMP Last administered on 04/05/18at 18:19; Start 03/21/18 at 04:15 Multi-Ingredient Ointment (Analgesic [place]) 1 juan PRN QID PRN TP MUSCLE PAIN; Start 03/21/18 at 04:15 Al Hydroxide/Mg Hydroxide (Mylanta Plus Xs) 15 ml PRN AFTMEALHC PRN PO DYSPEPSIA; Start 03/21/18 at 04:15 Magnesium Hydroxide (Milk Of Magnesia) 2,400 mg PRN QHS PRN PO CONSTIPATION; Start 03/21/18 at 04:15 Info (FLU VACCINE per PROTOCOL) 1 ea PRN 1X PRN MC PER PROTOCOL; Start at 04:30; Status Cancel Ascorbic Acid (Vitamin C) 500 mg DAILY PO Last administered on 04/05/18at 08:09 ; Start 03/21/18 at 09:00 Carbidopa/Levodopa (Sinemet 25/100) 0.5 tab PRN BID PRN PO Tremors; Start 03/21 at 04:15; Status Cancel Carbidopa/Levodopa (Sinemet 25/100) 0.5 tab Q2HR W/A PO Last administered on 04/05/18at 19:37; Start 03/21/18 at 06:00 Ferrous Sulfate (Feosol) 650 mg DAILY PO ; Start 03/21/18 at 09:00; Stop at 11:35; Status DC Ibuprofen (Motrin) 600 mg PRN BID PRN PO PAIN; Start 03/21/18 at 04:15; Stop 03/21/18 at 11:44; Status DC Linaclotide (Linzess) 145 mcg DAILY PO Last administered on 04/05/18at 08:12; Start 03/21/18 at 09:00 Aspirin (Children'S Aspirin) 81 mg DAILYWBKFT PO Last administered on at 08:08; Start 03/21/18 at 08:00 Carbidopa/Levodopa (Sinemet Cr) 1 tab.sa HS PO Last administered on 04/05/18at 19:37; Start 03/21/18 at 21:00 Diazepam (Valium) 2 mg PRN Q6HRS PRN PO ANXIETY / AGITATION Last administered on 04/05/18at 10:39; Start 03/21/18 at 04:15 Divalproex Sodium (Depakote Er) 500 mg QHS PO Last administered on 03/24/18at 20 :17; Start 03/22/18 at 21:00; Stop 03/25/18 at 16:52; Status DC Docusate Sodium (Colace) 200 mg PRN DAILY PRN PO CONSTIPATION; Start 03/21/18 at 04:15; Stop 03/21/18 at 11:34; Status DC Citalopram Hydrobromide (CeleXA) 40 mg DAILY PO Last administered on 08:09; Start 03/21/18 at 09:00 Fluticasone Propionate (Flonase) 2 spray DAILY NS Last administered on at 08:03; Start 03/21/18 at 09:00; Stop 03/24/18 at 10:03; Status DC Hydrocortisone (Cortaid) 1 juan PRN BID PRN TP ITCH/RASH Last administered on at 10:47; Start 03/21/18 at 07:45 Non-Formulary Medication (Inulin/Chromium Picolinate (Fiber Gummies)) 2 ea TIDWMEALS PO ; Start 03/21/18 at 08:00; Status UNV Lactulose (Lactulose) 15 gm DAILYWBKFT PO Last administered on 04/05/18 08:08 ; Start 03/21/18 at 08:00 Magnesium Oxide (Magnesium Oxide) 400 mg BID PO Last administered on at 19:37; Start 03/21/18 at 09:00 Miconazole Nitrate (Monistat-Derm) 1 juan PRN BID PRN TP RASH; Start 03/21/18 at 04:15 Multivitamins/ Calcium (Thera-M Plus) 1 tab DAILY PO Last administered on 04/05at 08:09; Start 03/21/18 at 09:00 Pramipexole Dihydrochloride (miraPEX) 0.5 mg QHS PO Last administered on 19:38; Start 03/21/18 at 21:00 Pravastatin Sodium (Pravachol) 40 mg DAILY PO Last administered on 04/05/18at 08:10; Start 03/21/18 at 09:00 Trazodone HCl (Desyrel) 25 mg DAILYWSUP PO Last administered on 04/05/18at 16: 32; Start 03/21/18 at 17:00 Non-Formulary Medication (Trazodone Hcl ) 25 mg PRN DAILY PRN PO AGITATION; Start 03/21/18 at 04:15; Status UNV Trazodone HCl (Desyrel) 75 mg QHS PO Last administered on 04/05/18at 19:38; Start 03/21/18 at 21:00 Divalproex Sodium (Depakote Sprinkles) 250 mg HS PO ; Start 03/21/18 at 21:00; Status UNV Divalproex Sodium (Depakote Sprinkles) 250 mg HS PO ; Start 03/21/18 at 21:00; Status UNV Olanzapine (ZyPREXA) 2.5 mg PRN Q2HR PRN PO ANXIETY / AGITATION; Start at 04:15; Status Cancel Olanzapine (ZyPREXA ZYDIS) 5 mg PRN Q2HR PRN PO PSYCHOSIS; Start 03/21/18 at 04 :15 Quetiapine Fumarate (SEROquel) 25 mg QHS PO Last administered on 04/05/18 19: 38; Start 03/21/18 at 21:00 Docusate Sodium (Colace) 100 mg BID PO Last administered on 04/05/18 19:38; Start 03/21/18 at 21:00 Ferrous Sulfate (Feosol) 650 mg DAILY06 PO Last administered on 04/05/18at 06: 11; Start 03/22/18 at 06:00 Ibuprofen (Motrin) 600 mg PRN BID PRN PO INFLAMMATION Last administered on at 06:31; Start 03/21/18 at 11:45 Metformin HCl (Glucophage Xr) 1,000 mg DAILYWBKFT PO Last administered on 04/05at 08:08; Start 03/22/18 at 12:00 Diclofenac Sodium (Voltaren) 1 juan TID TP Last administered on 03/22/18at 08:01 ; Start 03/21/18 at 14:00; Stop 03/22/18 at 13:01; Status DC Diclofenac Sodium (Voltaren) 1 juan PRN TID PRN TP PAIN; Start 03/22/18 at 13:00 Vitamin D (Vitamin D3) 50,000 unit WEEKLY PO Last administered on 04/05/18at 08 :09; Start 03/22/18 at 13:45 Fluticasone Propionate (Flonase) 2 spray HS NS Last administered on 04/05/18at 19:38; Start 03/24/18 at 21:00 Divalproex Sodium (Depakote Er) 1,000 mg QHS PO Last administered on at 19:39; Start 03/25/18 at 21:00; Stop 04/01/18 at 16:33; Status DC Nystatin (Nystop) 1 juan BID TP Last administered on 04/05/18at 19:37; Start at 21:00 Rivastigmine (Exelon) 1 patch DAILY TD Last administered on 04/05/18at 08:10; Start 03/27/18 at 09:00 Memantine (Namenda) 5 mg 0900,1700 PO Last administered on 04/05/18at 16:32; Start 03/27/18 at 17:00 Melatonin 3 mg QHS PO Last administered on 04/05/18 19:38; Start 03/26/18 at 21:00 Divalproex Sodium (Depakote Er) 1,500 mg QHS PO Last administered on 19:38; Start 04/01/18 at 21:00 Active Scripts Active Reported Keflex (Cephalexin) 500 Mg Capsule 500 Mg PO QID 10 Days Pravastatin Sodium 40 Mg Tablet 40 Mg PO DAILY Carbidopa-Levo Er 50-200 Tab (Carbidopa/Levodopa) 1 Each Tablet.er 1 Each PO HS Sinemet 25-100 Mg Tablet (Carbidopa/Levodopa) 1 Each Tablet 0.5 Tab PO PRN BID PRN Sinemet 25-100 Mg Tablet (Carbidopa/Levodopa) 1 Each Tablet 0.5 Tab PO Q2HR W/A Diazepam 2 Mg Tablet 2 Mg PO PRN Q6HRS PRN Fiber Gummies (Inulin/Chromium Picolinate) 1 Each Tab.chew 2 Ea PO TIDWMEALS Mirapex (Pramipexole Di-Hcl) 0.25 Mg Tablet 0.5 Mg PO HS Linzess (Linaclotide) 145 Mcg Capsule 145 Mcg PO DAILY Trazodone Hcl 50 Mg Tablet 75 Mg PO HS PRN Testosterone Cypionate 100 Mg/1 Ml Vial 150 Mg IM Q10 DAYS Divalproex Sodium 500 Mg Tablet.dr 500 Mg PO HS Hydrocortisone 453.6 Gm Cream..g. 1 Juan TP PRN BID PRN Ferrous Sulfate 325 Mg Tablet 650 Mg PO DAILY Magnesium Oxide 400 Mg Tablet 400 Mg PO BID Miconazole Nitrate 45 Gm Cream.appl 1 Juan TP PRN BID PRN Aspirin 81 Mg Tab.chew 81 Mg PO DAILY Ibuprofen 400 Mg Tablet 600 Mg PO PRN BID PRN Docusate Sodium 100 Mg Capsule 200 Mg PO PRN DAILY PRN Escitalopram Oxalate 20 Mg Tablet 20 Mg PO DAILY Fluticasone Propionate Nasal [place] (Fluticasone Propionate) 16 Gm [place].susp 2 [place] NS DAILY Multivitamins (Multivitamin) 1 Each Tablet 1 Tab PO DAILY Trazodone Hcl 50 Mg Tablet 25 Mg PO DAILYWSUP Trazodone Hcl 50 Mg Tablet 25 Mg PO PRN DAILY PRN Ascorbic Acid 500 Mg Tablet 500 Mg PO DAILY Lactulose 10 Gm/15 Ml Solution 15 Ml PO DAILYWBKFT I have reviewed the current psychotropics carefully including drug interactions. Risk benefit ratio favors no change other than as noted in my dictated progress note. Diagnosis: Problems: (1) Anxiety disorder (2) Lewy body dementia with behavioral disturbance (3) Impulse control disorder (4) Personality disorder in adult SAY PRUETT MD Apr 05, 2018 23:20
[2018-04-06] MEDS: ACETAMINOPHEN 325 MG TABLET PO PRN (03:24)
[2018-04-06] MEDS: CARBIDOPA/LEVODOPA 25/100MG TABLET PO SCH ×9 (05:45→22:00)
[2018-04-06] MEDS: FERROUS SULFATE 325 MG TABLET. PO SCH (05:45)
[2018-04-06 06:31] VITALS: BP 136/87
[2018-04-06] MEDS: MEMANTINE 5 MG TABLET. PO SCH ×2 (07:55→17:07)
[2018-04-06] MEDS: MULTIVITAMIN with MINERAL TABLET. PO SCH (07:55)
[2018-04-06] MEDS: PRAVASTATIN 20 MG TABLET. PO SCH (07:55)
[2018-04-06] MEDS: DOCUSATE SODIUM 100 MG CAPSULE PO SCH ×2 (07:55→19:28)
[2018-04-06] MEDS: LACTULOSE 20 GM/30 ML SOLUTION. PO SCH (07:55)
[2018-04-06] MEDS: metFORMIN XR 500 MG TAB.ER.24H PO SCH (07:56)
[2018-04-06] MEDS: ASCORBIC ACID 500 MG TABLET PO SCH (07:56)
[2018-04-06] MEDS: ASPIRIN 81 MG TAB.CHEW PO SCH (07:56)
[2018-04-06] MEDS: MAGNESIUM OXIDE 400 MG TABLET PO SCH ×2 (07:56→19:30)
[2018-04-06] MEDS: CITALOPRAM 20 MG TABLET. PO SCH (07:56)
[2018-04-06] MEDS: RIVASTIGMINE 4.6MG PATCH. TD SCH (07:56)
[2018-04-06] MEDS: LINACLOTIDE 145 MCG CAPSULE. PO SCH (07:57)
[2018-04-06] MEDS: NYSTATIN TOPICAL POWDER 15GM BOTTLE. TP SCH ×2 (07:58→19:31)
--- NOTE | 2018-04-06 10:11 | PN ---
DATE: 04/01/2018 SUBJECTIVE: The patient denies any new medical neurological complaints. He sleeps and eats well. However, he has been a period of noncompliance with depression. He has a period of noncooperative and sometimes dropped himself to the floor. He is a complainer of either minor things happen in the room or with interaction with other patients. He always complains about having problem with his toe nails and he is still waiting for somebody to cut his toenails. He is very upset about pain of both feet because of that. He denies chest pain, shortness of breath or palpitation. OBJECTIVE: GENERAL: Obese white male, not in acute distress. VITAL SIGNS: Blood pressure 136/76, respiratory rate 20, pulse is 61, temperature 97.1, oxygen saturation 94% on room air. HEENT: Normocephalic, atraumatic, otherwise unremarkable. NECK: Supple. Negative for carotid bruit, lymphadenopathy or thyromegaly. LUNGS: Clear to A and P. CARDIOVASCULAR: Regular rate and rhythm, normal S1, S2. There is no S3, S4 or murmur. ABDOMEN: Soft. Bowel sounds positive. EXTREMITIES: Negative for cyanosis, clubbing or pitting edema. NEUROLOGICAL EXAM: Mental Status: The patient is alert and oriented x 3. The speech is fluent. There is no language dysfunction. The patient recalls 1/3 immediately and after 1 and 3 minutes. Judgment and abstracting thinking are fair. The patient denies hallucination or delusion. Cranial nerves are intact. No focal motor or sensory deficit. Deep tendon reflexes were hypoactive with absent Achilles responses. Gait: The patient cannot walk because of severe arthritis of the knees. He uses a chair for ambulation. IMPRESSION: 1. Longstanding history of dementia of moderate severity. 2. Parkinson disease. 3. Status post nerve stimulator implant. 4. Multiple psychiatric problems include anxiety, depression, and dementia. 5. Multiple medical problems include obesity, obstructive sleep apnea. RECOMMENDATIONS: We will continue with the current medical and psychiatric care. M Malena GILES MD DR: MK/nano JOB#: [id number] / [id number]
[2018-04-06] MEDS: diazePAM 2 MG TABLET PO PRN ×2 (12:05→19:40)
[2018-04-06 15:59] VITALS: BP 143/97
[2018-04-06] MEDS: traZODone 50 MG TABLET. PO SCH ×2 (17:07→19:28)
[2018-04-06] MEDS: IBUPROFEN 600 MG TABLET. PO PRN (17:08)
[2018-04-06] MEDS: MELATONIN 3 MG TABLET PO SCH (19:28)
[2018-04-06] MEDS: DIVALPROEX ER 500 MG TAB.ER.24H PO SCH (19:29)
[2018-04-06] MEDS: CARBIDOPA/LEVODOPA CR 50/200MG TABLET.SA PO SCH (19:29)
[2018-04-06] MEDS: PRAMIPEXOLE 0.5 MG TABLET. PO SCH (19:30)
[2018-04-06] MEDS: QUEtiapine 25 MG TABLET. PO SCH (19:30)
[2018-04-06] MEDS: CEPHALEXIN 250 MG CAPSULE PO SCH (19:31)
[2018-04-06] MEDS: FLUTICASONE 50MCG/NASAL SPRAY 16GM BOTTLE. NS SCH (19:32)
--- NOTE | 2018-04-06 20:03 | PN ---
DATE: 04/06/2018 SUBJECTIVE: The patient was seen today, met with the staff, chart reviewed. Staff reports behavioral issues, ____ shaking, constantly yelling, behavior problems, become very emotional. The patient is upset because nobody is helping him with his transfer from wheelchair to his bed. The patient also demanded that I make the chart that he needs attention and somebody to help him when he wants to move to bed. The patient constantly making demands. Staff is having difficulty dealing with them. OBSERVATION: VITAL SIGNS: Temperature 98.6, blood pressure 136/87, pulse 52, respirations 16, O2 sat 92%. Slept about 4 hours last night. The patient is also having difficulty with his emotions, highly emotional, depressed, crying and also poor impulse control and low frustration tolerance. MEDICATIONS: The patient's current medications include Depakote 1500 mg at night, Namenda 5 mg daily, Exelon patch 1 daily, melatonin 3 mg at night, Seroquel 25 mg at night, trazodone 75 mg at night. The patient is also on citalopram 40 mg daily. The patient is also on p.r.n. benzodiazepines. LABORATORY DATA: The patient's lab reviewed. No significant changes from admission. The patient is not having any side effects. ASSESSMENT: Major neurocognitive disorder, Lewy body with depression, delusions and behavioral disturbances. PLAN: To continue with the current treatment protocol. MORRIS VALDEZ MD DR: CHRIST/nano JOB#: [id number] / [id number]
--- NOTE | 2018-04-06 20:59 | PN ---
DATE: 04/06/2018 HISTORY OF PRESENT ILLNESS: The patient was seen today as the nursing staff noted that he has redness and swelling in his right elbow. Apparently, he fell before and sustained laceration that was sutured; however, he was also complaining of severe pain on his left foot. His toes are extremely contracted and he walks on the tip of his toes. He wanted to cut the toenails. His right big toe was also involved. There is large subcuticular hematoma. I actually lifted and removed the nail without any difficulty. It did bleed a little bit and we did put the pressure and the bleeding has stopped. For his right elbow, he has what seems to be cellulitis, so I started him on Keflex 500 mg 3 times a day, should continue for 10 days. JHON MOY MD DR: DEB/nano JOB#: [id number] / [id number]
[2018-04-07] MEDS: FERROUS SULFATE 325 MG TABLET. PO SCH (06:01)
[2018-04-07] MEDS: CARBIDOPA/LEVODOPA 25/100MG TABLET PO SCH ×9 (06:01→22:28)
[2018-04-07 06:20] VITALS: BP 117/72
[2018-04-07] MEDS: metFORMIN XR 500 MG TAB.ER.24H PO SCH (07:41)
[2018-04-07] MEDS: MEMANTINE 5 MG TABLET. PO SCH ×2 (07:42→16:50)
[2018-04-07] MEDS: ASPIRIN 81 MG TAB.CHEW PO SCH (07:42)
[2018-04-07] MEDS: MULTIVITAMIN with MINERAL TABLET. PO SCH (07:42)
[2018-04-07] MEDS: DOCUSATE SODIUM 100 MG CAPSULE PO SCH ×2 (07:43→20:43)
[2018-04-07] MEDS: CITALOPRAM 20 MG TABLET. PO SCH (07:43)
[2018-04-07] MEDS: ASCORBIC ACID 500 MG TABLET PO SCH (07:43)
[2018-04-07] MEDS: PRAVASTATIN 20 MG TABLET. PO SCH (07:43)
[2018-04-07] MEDS: CEPHALEXIN 250 MG CAPSULE PO SCH ×3 (07:44→20:43)
[2018-04-07] MEDS: RIVASTIGMINE 4.6MG PATCH. TD SCH (07:44)
[2018-04-07] MEDS: MAGNESIUM OXIDE 400 MG TABLET PO SCH ×2 (07:44→20:43)
[2018-04-07] MEDS: LACTULOSE 20 GM/30 ML SOLUTION. PO SCH (07:45)
[2018-04-07] MEDS: LINACLOTIDE 145 MCG CAPSULE. PO SCH (07:47)
[2018-04-07] MEDS: NYSTATIN TOPICAL POWDER 15GM BOTTLE. TP SCH ×2 (07:49→20:45)
[2018-04-07 16:26] VITALS: BP 152/83
[2018-04-07] MEDS: traZODone 50 MG TABLET. PO SCH ×2 (16:50→20:43)
[2018-04-07] MEDS: CARBIDOPA/LEVODOPA CR 50/200MG TABLET.SA PO SCH (20:42)
[2018-04-07] MEDS: PRAMIPEXOLE 0.5 MG TABLET. PO SCH (20:43)
[2018-04-07] MEDS: MELATONIN 3 MG TABLET PO SCH (20:43)
[2018-04-07] MEDS: QUEtiapine 25 MG TABLET. PO SCH (20:43)
[2018-04-07] MEDS: DIVALPROEX ER 500 MG TAB.ER.24H PO SCH (20:44)
[2018-04-07] MEDS: FLUTICASONE 50MCG/NASAL SPRAY 16GM BOTTLE. NS SCH (20:45)
[2018-04-07] MEDS: LACTOBACILLUS RHAMNOSUS GG 1 CAPSULE. PO SCH (20:46)
[2018-04-07 21:00] VITALS: BP 121/76
[2018-04-08] MEDS: ACETAMINOPHEN 325 MG TABLET PO PRN ×3 (00:49→12:07)
[2018-04-08] MEDS: diazePAM 2 MG TABLET PO PRN (01:04)
--- NOTE | 2018-04-08 04:10 | PN ---
DATE: 04/05/2018 PSYCHIATRIC PROGRESS NOTE This late entry 04/05/2018 covers elements not covered in my initial note. SUBJECTIVE: I met with the patient in the morning. The patient slept 8-1/4 hours previous night. He did receive p.r.n. Valium post 10:00 due to increased anxiety, agitation, refused CPAP, oxygen sats were somewhat low, complained of some abdominal pain. CT abdomen negative for diverticulosis. REVIEW OF SYSTEMS: Ambulation impaired with walker. No CV, , pulmonary, eye system symptoms on review except some vague abdominal complaints. MENTAL STATUS EXAMINATION: Reasonably oriented. Speech coherent, a little pressured at times. Abstraction fair, computation impaired, language function intact, attention span short. Mood and affect remain somewhat labile, anxious. LABORATORY DATA: Reviewed. IMPRESSION: Unchanged from initial note. PLAN: No change from initial note. MAN Rosa PRUETT MD DR: MARCEL/nano JOB#: [id number] / [id number]
[2018-04-08] MEDS: CARBIDOPA/LEVODOPA 25/100MG TABLET PO SCH ×6 (05:51→16:09)
[2018-04-08] MEDS: FERROUS SULFATE 325 MG TABLET. PO SCH (05:51)
[2018-04-08 06:14] VITALS: BP 108/61
[2018-04-08] MEDS: CITALOPRAM 20 MG TABLET. PO SCH (07:43)
[2018-04-08] MEDS: metFORMIN XR 500 MG TAB.ER.24H PO SCH (07:43)
[2018-04-08] MEDS: CEPHALEXIN 250 MG CAPSULE PO SCH ×2 (07:43→16:08)
[2018-04-08] MEDS: LACTOBACILLUS RHAMNOSUS GG 1 CAPSULE. PO SCH (07:44)
[2018-04-08] MEDS: MULTIVITAMIN with MINERAL TABLET. PO SCH (07:44)
[2018-04-08] MEDS: DOCUSATE SODIUM 100 MG CAPSULE PO SCH (07:44)
[2018-04-08] MEDS: ASCORBIC ACID 500 MG TABLET PO SCH (07:44)
[2018-04-08] MEDS: MAGNESIUM OXIDE 400 MG TABLET PO SCH (07:45)
[2018-04-08] MEDS: RIVASTIGMINE 4.6MG PATCH. TD SCH (07:45)
[2018-04-08] MEDS: PRAVASTATIN 20 MG TABLET. PO SCH (07:45)
[2018-04-08] MEDS: LINACLOTIDE 145 MCG CAPSULE. PO SCH (07:45)
[2018-04-08] MEDS: MEMANTINE 5 MG TABLET. PO SCH ×2 (07:45→17:05)
[2018-04-08] MEDS: LACTULOSE 20 GM/30 ML SOLUTION. PO SCH (07:45)
[2018-04-08] MEDS: ASPIRIN 81 MG TAB.CHEW PO SCH (07:45)
[2018-04-08] MEDS: NYSTATIN TOPICAL POWDER 15GM BOTTLE. TP SCH (07:47)
[2018-04-08 08:20] LABS: BASO % 0 % (0-3); EOS # 0.1 x10^3/uL (0.0-0.7); EOS % 1 % (0-3); HEMATOCRIT 34.3 % (39.0-53.0); HEMOGLOBIN 11.7 g/dL (13.0-17.5); LYMPH # 1.3 x10^3/uL (1.0-4.8); LYMPH % 14 % (24-48); MEAN CORPUSCULAR HEMOGLOBIN 31 pg (25-35); MEAN CORPUSCULAR HGB CONC 34 g/dL (31-37); MEAN CORPUSCULAR VOLUME 91 fL (79-100); MONO # 1.7 x10^3/uL (0.0-1.1); MONO % 18 % (0-9); NEUT # 6.6 x10^3uL (1.8-7.7); NEUT % 68 % (31-73); PLATELET COUNT 154 x10^3/uL (140-400); RED BLOOD COUNT 3.79 x10^6/uL (4.30-5.70); RED CELL DISTRIBUTION WIDTH 14.1 % (11.5-14.5); WHITE BLOOD COUNT 9.8 x10^3/uL (4.0-11.0)
[2018-04-08 08:27] LABS: ALBUMIN 2.5 g/dL (3.4-5.0); ALBUMIN/GLOBULIN RATIO 0.8 (1.0-1.7); CREATININE 0.9 mg/dL (0.7-1.3); GFR 84.4; POTASSIUM 3.8 mmol/L (3.5-5.1); TOTAL BILIRUBIN 1.1 mg/dL (0.2-1.0); TOTAL PROTEIN 5.7 g/dL (6.4-8.2)
[2018-04-08] MEDS ORDERED: VANCOMYCIN PER PHARMACY MC PRN (15:45)
[2018-04-08] MEDS ORDERED: PIP/TAZO PER PHARMACY MC PRN (15:45)
[2018-04-08 16:26] VITALS: BP 109/71
[2018-04-08] MEDS ORDERED: ACET325T9 PO (16:31)
[2018-04-08] MEDS ORDERED: CHOL500050 PO (16:33)
[2018-04-08] MEDS ORDERED: DICL100G18 TP (16:34)
[2018-04-08] MEDS ORDERED: MAGN2400 PO (16:35)
[2018-04-08] MEDS ORDERED: NYST15PO9 TP (16:36)
[2018-04-08] MEDS ORDERED: METF500T3 PO (16:37)
[2018-04-08] MEDS ORDERED: CITA40TA12 PO (16:44)
[2018-04-08] MEDS ORDERED: LACT1CAP21 PO (16:47)
[2018-04-08] MEDS ORDERED: MELA3TAB2 PO (16:48)
[2018-04-08] MEDS ORDERED: MEMA10TA PO (16:49)
[2018-04-08] MEDS ORDERED: METH29OI TP (16:49)
[2018-04-08] MEDS ORDERED: OLAN5TAB5 PO (16:50)
[2018-04-08] MEDS ORDERED: QUET25TA5 PO (16:51)
[2018-04-08] MEDS ORDERED: RIVA1PAT22 TP (16:52)
[2018-04-08] MEDS: traZODone 50 MG TABLET. PO SCH (17:04)
[2018-04-08] MEDS ORDERED: LACT10SO26 PO (20:20)
[2018-04-08] MEDS ORDERED: MAG30ORA2 PO (20:20)
--- NOTE | 2018-04-08 21:00 | PDOC ---
Exam Note: Сергей Note: Please also refer to the separate dictated note~for this date of service dictated separately.~Patient seen individually. Discussed the patient with Nursing staff reviewed the chart.~Reviewed interim history and current functioning. Reviewed vital signs,~Labs/ Radiology~and current medications noted below. Continue current treatment with the changes noted in the dictated addendum note Assessment: Vital Signs: Vital Signs Date Time Temp Pulse Resp B/P (MAP) Pulse Ox O2 Delivery O2 Flow Rate FiO2 04/08/18 16:26 98.8 64 18 109/71 (84) 94 Room Air I&O Intake and Output 04/08/18 07:00 Intake Total 960 ml Balance 960 ml Intake Oral 960 ml Labs: Laboratory Tests Test 04/08/18 07:17 04/08/18 15:54 White Blood Count 9.8 x10^3/uL (4.0-11.0) Red Blood Count 3.79 x10^6/uL (4.30-5.70) L Hemoglobin 11.7 g/dL (13.0-17.5) L Hematocrit 34.3 % (39.0-53.0) L Mean Corpuscular Volume 91 fL (79-100) Mean Corpuscular Hemoglobin 31 pg (25-35) Mean Corpuscular Hemoglobin Concent 34 g/dL (31-37) Red Cell Distribution Width 14.1 % (11.5-14.5) Platelet Count 154 x10^3/uL (140-400) Neutrophils (%) (Auto) 68 % (31-73) Lymphocytes (%) (Auto) 14 % (24-48) L Monocytes (%) (Auto) 18 % (0-9) H Eosinophils (%) (Auto) 1 % (0-3) Basophils (%) (Auto) 0 % (0-3) Neutrophils # (Auto) 6.6 x10^3uL (1.8-7.7) Lymphocytes # (Auto) 1.3 x10^3/uL (1.0-4.8) Monocytes # (Auto) 1.7 x10^3/uL (0.0-1.1) H Eosinophils # (Auto) 0.1 x10^3/uL (0.0-0.7) Basophils # (Auto) 0.0 x10^3/uL (0.0-0.2) Sodium Level 138 mmol/L (136-145) Potassium Level 3.8 mmol/L (3.5-5.1) Chloride Level 104 mmol/L (98-107) Carbon Dioxide Level 31 mmol/L (21-32) Anion Gap 3 (6-14) L Blood Urea Nitrogen 23 mg/dL (8-26) Creatinine 0.9 mg/dL (0.7-1.3) Estimated GFR (Cockcroft-Gault) 84.4 BUN/Creatinine Ratio 26 (6-20) H Glucose Level 92 mg/dL (70-99) Calcium Level 8.0 mg/dL (8.5-10.1) L Total Bilirubin 1.1 mg/dL (0.2-1.0) H Aspartate Amino Transferase (AST) 14 U/L (15-37) L Alanine Aminotransferase (ALT) 10 U/L (16-63) L Alkaline Phosphatase 56 U/L (46-116) Total Protein 5.7 g/dL (6.4-8.2) L Albumin 2.5 g/dL (3.4-5.0) L Albumin/Globulin Ratio 0.8 (1.0-1.7) L Lactic Acid Level 0.7 mmol/L (0.4-2.0) Current Medications: Meds: Current Medications Influenza Virus Vaccine (Afluria Trivalent 3101-4903 Syringe) 0.5 ml ONCE ONCE VAX IM Last administered on 03/21/18at 13:58; Start 03/21/18 at 09:00; Stop 03/21/18 at 09:01; Status DC Acetaminophen (Tylenol) 650 mg PRN Q6HRS PRN PO PAIN / TEMP Last administered on 04/08/18at 12:07; Start 03/21/18 at 04:15; Stop 04/08/18 at 17:43; Status DC Multi-Ingredient Ointment (Analgesic [place]) 1 juan PRN QID PRN TP MUSCLE PAIN; Start 03/21/18 at 04:15; Stop 04/08/18 at 17:43; Status DC Al Hydroxide/Mg Hydroxide (Mylanta Plus Xs) 15 ml PRN AFTMEALHC PRN PO DYSPEPSIA; Start 03/21/18 at 04:15; Stop 04/08/18 at 17:43; Status DC Magnesium Hydroxide (Milk Of Magnesia) 2,400 mg PRN QHS PRN PO CONSTIPATION; Start 03/21/18 at 04:15; Stop 04/08/18 at 17:43; Status DC Info (FLU VACCINE per PROTOCOL) 1 ea PRN 1X PRN MC PER PROTOCOL; Start at 04:30; Status Cancel Ascorbic Acid (Vitamin C) 500 mg DAILY PO Last administered on 04/08/18at 07:44 ; Start 03/21/18 at 09:00; Stop 04/08/18 at 17:43; Status DC Carbidopa/Levodopa (Sinemet 25/100) 0.5 tab PRN BID PRN PO Tremors; Start 03/21 at 04:15; Status Cancel Carbidopa/Levodopa (Sinemet 25/100) 0.5 tab Q2HR W/A PO Last administered on 04/08/18at 16:09; Start 03/21/18 at 06:00; Stop 04/08/18 at 17:43; Status DC Ferrous Sulfate (Feosol) 650 mg DAILY PO ; Start 03/21/18 at 09:00; Stop at 11:35; Status DC Ibuprofen (Motrin) 600 mg PRN BID PRN PO PAIN; Start 03/21/18 at 04:15; Stop 03/21/18 at 11:44; Status DC Linaclotide (Linzess) 145 mcg DAILY PO Last administered on 04/08/18at 07:45; Start 03/21/18 at 09:00; Stop 04/08/18 at 17:43; Status DC Aspirin (Children'S Aspirin) 81 mg DAILYWBKFT PO Last administered on at 07:45; Start 03/21/18 at 08:00; Stop 04/08/18 at 17:43; Status DC Carbidopa/Levodopa (Sinemet Cr) 1 tab.sa HS PO Last administered on 04/07/18at 20:42; Start 03/21/18 at 21:00; Stop 04/08/18 at 17:43; Status DC Diazepam (Valium) 2 mg PRN Q6HRS PRN PO ANXIETY / AGITATION Last administered on 04/08/18at 01:04; Start 03/21/18 at 04:15; Stop 04/08/18 at 17:43; Status DC Divalproex Sodium (Depakote Er) 500 mg QHS PO Last administered on 03/24/18at 20 :17; Start 03/22/18 at 21:00; Stop 03/25/18 at 16:52; Status DC Docusate Sodium (Colace) 200 mg PRN DAILY PRN PO CONSTIPATION; Start 03/21/18 at 04:15; Stop 03/21/18 at 11:34; Status DC Citalopram Hydrobromide (CeleXA) 40 mg DAILY PO Last administered on at 07:43; Start 03/21/18 at 09:00; Stop 04/08/18 at 17:43; Status DC Fluticasone Propionate (Flonase) 2 spray DAILY NS Last administered on at 08:03; Start 03/21/18 at 09:00; Stop 03/24/18 at 10:03; Status DC Hydrocortisone (Cortaid) 1 juan PRN BID PRN TP ITCH/RASH Last administered on at 10:47; Start 03/21/18 at 07:45; Stop 04/08/18 at 17:43; Status DC Non-Formulary Medication (Inulin/Chromium Picolinate (Fiber Gummies)) 2 ea TIDWMEALS PO ; Start 03/21/18 at 08:00; Status UNV Lactulose (Lactulose) 15 gm DAILYWBKFT PO Last administered on 04/08/18at 07:45 ; Start 03/21/18 at 08:00; Stop 04/08/18 at 17:43; Status DC Magnesium Oxide (Magnesium Oxide) 400 mg BID PO Last administered on at 07:45; Start 03/21/18 at 09:00; Stop 04/08/18 at 17:43; Status DC Miconazole Nitrate (Monistat-Derm) 1 juan PRN BID PRN TP RASH; Start 03/21/18 at 04:15; Stop 04/08/18 at 17:43; Status DC Multivitamins/ Calcium (Thera-M Plus) 1 tab DAILY PO Last administered on 04/08at 07:44; Start 03/21/18 at 09:00; Stop 04/08/18 at 17:43; Status DC Pramipexole Dihydrochloride (miraPEX) 0.5 mg QHS PO Last administered on at 20:43; Start 03/21/18 at 21:00; Stop 04/08/18 at 17:43; Status DC Pravastatin Sodium (Pravachol) 40 mg DAILY PO Last administered on 04/08/18at 07:45; Start 03/21/18 at 09:00; Stop 04/08/18 at 17:43; Status DC Trazodone HCl (Desyrel) 25 mg DAILYWSUP PO Last administered on 04/08/18at 17: 04; Start 03/21/18 at 17:00; Stop 04/08/18 at 17:43; Status DC Non-Formulary Medication (Trazodone Hcl ) 25 mg PRN DAILY PRN PO AGITATION; Start 03/21/18 at 04:15; Status UNV Trazodone HCl (Desyrel) 75 mg QHS PO Last administered on 04/07/18at 20:43; Start 03/21/18 at 21:00; Stop 04/08/18 at 17:43; Status DC Divalproex Sodium (Depakote Sprinkles) 250 mg HS PO ; Start 03/21/18 at 21:00; Status UNV Divalproex Sodium (Depakote Sprinkles) 250 mg HS PO ; Start 03/21/18 at 21:00; Status UNV Olanzapine (ZyPREXA) 2.5 mg PRN Q2HR PRN PO ANXIETY / AGITATION; Start at 04:15; Status Cancel Olanzapine (ZyPREXA ZYDIS) 5 mg PRN Q2HR PRN PO PSYCHOSIS Last administered on 04/06/18at 17:07; Start 03/21/18 at 04:15; Stop 04/08/18 at 17:43; Status DC Quetiapine Fumarate (SEROquel) 25 mg QHS PO Last administered on 04/07/18at 20: 43; Start 03/21/18 at 21:00; Stop 04/08/18 at 17:43; Status DC Docusate Sodium (Colace) 100 mg BID PO Last administered on 04/08/18at 07:44; Start 03/21/18 at 21:00; Stop 04/08/18 at 17:43; Status DC Ferrous Sulfate (Feosol) 650 mg DAILY06 PO Last administered on 04/08/18at 05: 51; Start 03/22/18 at 06:00; Stop 04/08/18 at 17:43; Status DC Ibuprofen (Motrin) 600 mg PRN BID PRN PO INFLAMMATION Last administered on at 17:08; Start 03/21/18 at 11:45; Stop 04/08/18 at 17:43; Status DC Metformin HCl (Glucophage Xr) 1,000 mg DAILYWBKFT PO Last administered on 04/08at 07:43; Start 03/22/18 at 12:00; Stop 04/08/18 at 17:43; Status DC Diclofenac Sodium (Voltaren) 1 juan TID TP Last administered on 03/22/18at 08:01 ; Start 03/21/18 at 14:00; Stop 03/22/18 at 13:01; Status DC Diclofenac Sodium (Voltaren) 1 juan PRN TID PRN TP PAIN; Start 03/22/18 at 13:00 ; Stop 04/08/18 at 17:43; Status DC Vitamin D (Vitamin D3) 50,000 unit WEEKLY PO Last administered on 04/05/18at 08 :09; Start 03/22/18 at 13:45; Stop 04/08/18 at 17:43; Status DC Fluticasone Propionate (Flonase) 2 spray HS NS Last administered on 04/07/18at 20:45; Start 03/24/18 at 21:00; Stop 04/08/18 at 17:43; Status DC Divalproex Sodium (Depakote Er) 1,000 mg QHS PO Last administered on at 19:39; Start 03/25/18 at 21:00; Stop 04/01/18 at 16:33; Status DC Nystatin (Nystop) 1 juan BID TP Last administered on 04/08/18at 07:47; Start at 21:00; Stop 04/08/18 at 17:43; Status DC Rivastigmine (Exelon) 1 patch DAILY TD Last administered on 04/08/18at 07:45; Start 03/27/18 at 09:00; Stop 04/08/18 at 17:43; Status DC Memantine (Namenda) 5 mg 0900,1700 PO Last administered on 04/08/18at 17:05; Start 03/27/18 at 17:00; Stop 04/08/18 at 17:43; Status DC Melatonin 3 mg QHS PO Last administered on 04/07/18at 20:43; Start 03/26/18 at 21:00; Stop 04/08/18 at 17:43; Status DC Divalproex Sodium (Depakote Er) 1,500 mg QHS PO Last administered on at 20:44; Start 04/01/18 at 21:00; Stop 04/08/18 at 17:43; Status DC Cephalexin HCl (Keflex) 500 mg TID PO Last administered on 04/08/18at 16:08; Start 04/06/18 at 21:00; Stop 04/08/18 at 17:43; Status DC Lactobacillus Rhamnosus (Culturelle) 1 cap BID PO Last administered on at 07:44; Start 04/07/18 at 21:00; Stop 04/08/18 at 17:43; Status DC Piperacillin Sod/ Tazobactam Sod (Zosyn Per Pharmacy) 1 each PRN DAILY PRN MC SEE COMMENTS; Start 04/08/18 at 15:45; Stop 04/08/18 at 17:43; Status DC Vancomycin HCl (Vanco Per Pharmacy) 1 each PRN DAILY PRN MC SEE COMMENTS; Start 04/08/18 at 15:45; Stop 04/08/18 at 17:43; Status DC Active Scripts Active Reported Mag-Al Plus Xs Suspension (Mag Hydrox/Al Hydrox/Simeth) 30 Ml Oral.susp 15 Ml PO PRN AFTMEALHC PRN Lactulose 10 Gm/15 Ml Solution 15 Gm PO DAILYWBKFT EXELON 4.6mg/24hr (Rivastigmine) 1 Each Patch.td24 1 Patch TP DAILY Seroquel (Quetiapine Fumarate) 25 Mg Tablet 1 Tab PO QHS Zyprexa Zydis (Olanzapine) 5 Mg Tab.rapdis 5 Mg PO PRN Q2HR PRN Analgesic [place] (Methyl Salicylate/Menthol) 28 Gm Oint...g. 1 Juan TP QID PRN Namenda (Memantine Hcl) 10 Mg Tablet 0.5 Tab PO BIDWMEALS Melatonin 3 Mg Tablet 1 Tab PO QHS Culturelle (Lactobacillus Rhamnosus Gg) 1 Each Capsule 1 Each PO BID Celexa (Citalopram Hydrobromide) 40 Mg Tablet 40 Mg PO DAILY Glucophage Xr (Metformin Hcl) 500 Mg Tab.er.24h 2 Tab PO DAILYWBKFT Nystatin 15 Gm Powder 1 Juan TP BID Milk Of Magnesia (Magnesium Hydroxide) 2,400 Mg/10 Ml Oral.susp 2,400 Mg PO HS PRN Voltaren (Diclofenac Sodium) 100 Gm Gel..gram. 1 Juan TP PRN TID PRN FOR NECK PAIN Vitamin D3 (Cholecalciferol (Vitamin D3)) 50,000 Unit Capsule 50,000 Unit PO WEEKLY Tylenol (Acetaminophen) 325 Mg Tablet 2 Tab PO PRN Q6HRS PRN Pravastatin Sodium 40 Mg Tablet 40 Mg PO DAILY Carbidopa-Levo Er 50-200 Tab (Carbidopa/Levodopa) 1 Each Tablet.er 1 Each PO HS Sinemet 25-100 Mg Tablet (Carbidopa/Levodopa) 1 Each Tablet 0.5 Tab PO Q2HR W/A Diazepam 2 Mg Tablet 2 Mg PO PRN Q6HRS PRN Mirapex (Pramipexole Di-Hcl) 0.25 Mg Tablet 0.5 Mg PO HS Linzess (Linaclotide) 145 Mcg Capsule 145 Mcg PO DAILY Trazodone Hcl 50 Mg Tablet 75 Mg PO HS Divalproex Sodium 500 Mg Tablet.dr 1,500 Mg PO HS Hydrocortisone 453.6 Gm Cream..g. 1 Juan TP PRN BID PRN Ferrous Sulfate 325 Mg Tablet 650 Mg PO DAILY06 Magnesium Oxide 400 Mg Tablet 400 Mg PO BID Miconazole Nitrate 45 Gm Cream.appl 1 Juan TP PRN BID PRN Aspirin 81 Mg Tab.chew 81 Mg PO DAILY Ibuprofen 400 Mg Tablet 600 Mg PO PRN BID PRN Docusate Sodium 100 Mg Capsule 100 Mg PO BID Fluticasone Propionate Nasal [place] (Fluticasone Propionate) 16 Gm [place].susp 2 [place] NS DAILY Multivitamins (Multivitamin) 1 Each Tablet 1 Tab PO DAILY Trazodone Hcl 50 Mg Tablet 25 Mg PO DAILYWSUP Ascorbic Acid 500 Mg Tablet 500 Mg PO DAILY I have reviewed the current psychotropics carefully including drug interactions. Risk benefit ratio favors no change other than as noted in my dictated progress note. Diagnosis: Problems: (1) Anxiety disorder (2) Lewy body dementia with behavioral disturbance (3) Impulse control disorder (4) Personality disorder in adult SAY PRUETT MD Apr 08, 2018 21:00
--- NOTE | 2018-04-09 01:11 | PDOC1 ---
History and Physical HPI: HPI: HISTORY OF PRESENT ILLNESS: The patient was seen today as the nursing staff noted that he has redness and swelling in his right elbow. Apparently, he fell before and sustained laceration that was sutured; however, he was also complaining of severe pain on his left foot. His toes are extremely contracted and he walks on the tip of his toes. He wanted to cut the toenails. His right big toe was also involved. There is large subcuticular hematoma. I actually lifted and removed the nail without any difficulty. It did bleed a little bit and we did put the pressure and the bleeding has stopped. For his right elbow, he has what seems to be cellulitis, so I started him on Keflex 500 mg 3 times a day, should continue for 10 days. Past Medical History: Cardiovascular: hyperipidemia Pulmonary: Other (GENOVEVA) FLAME BURNER: Dementia (Lewy Body, Parkinsons) GI: Constipation Heme/Onc: Other (vitamin deficiency) Musculoskeletal: Other Renal/: Other (hypogonadism) Endocrine: Other (morbid obesity) Past Surgical History: PSH: L rotator cuff tear, tonsillectomy, L posterior tibial tendon tear, nerve stimulator Family History: Social History: Other (Lives with 24h care) Social History: Smoke: 1 pack per day Alcohol: none Drugs: None Allergies: Allergies: Coded Allergies: No Known Drug Allergies (Unverified , 03/21/18) Current Medications: Current Medications: Current Medications Medications (Trade) Dose Ordered Sig/Lucero Start Time Stop Time Status Last Admin Dose Admin Acetaminophen (Tylenol) 650 mg PRN Q6HRS PRN 03/21/18 04:15 04/08/18 17:43 DC 04/08/18 12:07 650 MG Al Hydroxide/Mg Hydroxide (Mylanta Plus Xs) 15 ml PRN AFTMEALHC PRN 03/21/18 04:15 04/08/18 17:43 DC Ascorbic Acid (Vitamin C) 500 mg DAILY 03/21/18 09:00 04/08/18 17:43 DC 04/08/18 07:44 500 MG Aspirin (Children'S Aspirin) 81 mg DAILYWBKFT 03/21/18 08:00 04/08/18 17:43 DC 04/08/18 07:45 81 MG Carbidopa/Levodopa (Sinemet 25/100) 0.5 tab Q2HR W/A 03/21/18 06:00 04/08/18 17:43 DC 04/08/18 16:09 0.5 TAB Carbidopa/Levodopa (Sinemet Cr) 1 tab.sa HS 03/21/18 21:00 04/08/18 17:43 DC 04/07/18 20:42 1 TAB.SA Cephalexin HCl (Keflex) 500 mg TID 04/06/18 21:00 04/08/18 17:43 DC 04/08/18 16:08 500 MG Citalopram Hydrobromide (CeleXA) 40 mg DAILY 03/21/18 09:00 04/08/18 17:43 DC 04/08/18 07:43 40 MG Diazepam (Valium) 2 mg PRN Q6HRS PRN 03/21/18 04:15 04/08/18 17:43 DC 04/08/18 01:04 2 MG Diclofenac Sodium (Voltaren) 1 luis felipe PRN TID PRN 03/22/18 13:00 04/08/18 17:43 DC Divalproex Sodium (Depakote Sprinkles) 250 mg HS 03/21/18 21:00 UNV Divalproex Sodium (Depakote Er) 1,500 mg QHS 04/01/18 21:00 04/08/18 17:43 DC 04/07/18 20:44 1,500 MG Docusate Sodium (Colace) 100 mg BID 03/21/18 21:00 04/08/18 17:43 DC 04/08/18 07:44 100 MG Ferrous Sulfate (Feosol) 650 mg DAILY06 03/22/18 06:00 04/08/18 17:43 DC 04/08/18 05:51 650 MG Fluticasone Propionate (Flonase) 2 spray HS 03/24/18 21:00 04/08/18 17:43 DC 04/07/18 20:45 2 SPRAY Hydrocortisone (Cortaid) 1 luis felipe PRN BID PRN 03/21/18 07:45 04/08/18 17:43 DC 03/26/18 10:47 1 LUIS FELIPE Ibuprofen (Motrin) 600 mg PRN BID PRN 03/21/18 11:45 04/08/18 17:43 DC 04/06/18 17:08 600 MG Influenza Virus Vaccine (Afluria Trivalent [id number] Syringe) 0.5 ml ONCE ONCE 03/21/18 09:00 03/21/18 09:01 DC 03/21/18 13:58 0.5 ML Info (FLU VACCINE per PROTOCOL) 1 ea PRN 1X PRN 03/21/18 04:30 Cancel Lactobacillus Rhamnosus (Culturelle) 1 cap BID 04/07/18 21:00 04/08/18 17:43 DC 04/08/18 07:44 1 CAP Lactulose (Lactulose) 15 gm DAILYWBKFT 03/21/18 08:00 04/08/18 17:43 DC 04/08/18 07:45 15 GM Linaclotide (Linzess) 145 mcg DAILY 03/21/18 09:00 04/08/18 17:43 DC 04/08/18 07:45 145 MCG Magnesium Hydroxide (Milk Of Magnesia) 2,400 mg PRN QHS PRN 03/21/18 04:15 04/08/18 17:43 DC Magnesium Oxide (Magnesium Oxide) 400 mg BID 03/21/18 09:00 04/08/18 17:43 DC 04/08/18 07:45 400 MG Melatonin 3 mg QHS 03/26/18 21:00 04/08/18 17:43 DC 04/07/18 20:43 3 MG Memantine (Namenda) 5 mg 0900,1700 03/27/18 17:00 04/08/18 17:43 DC 04/08/18 17:05 5 MG Metformin HCl (Glucophage Xr) 1,000 mg DAILYWBKFT 03/22/18 12:00 04/08/18 17:43 DC 04/08/18 07:43 1,000 MG Miconazole Nitrate (Monistat-Derm) 1 luis felipe PRN BID PRN 03/21/18 04:15 04/08/18 17:43 DC Multi-Ingredient Ointment (Analgesic [place]) 1 luis felipe PRN QID PRN 03/21/18 04:15 04/08/18 17:43 DC Multivitamins/ Calcium (Thera-M Plus) 1 tab DAILY 03/21/18 09:00 04/08/18 17:43 DC 04/08/18 07:44 1 TAB Non-Formulary Medication (Inulin/Chromium Picolinate (Fiber Gummies)) 2 ea TIDWMEALS 03/21/18 08:00 UNV Non-Formulary Medication (Trazodone Hcl ) 25 mg PRN DAILY PRN 03/21/18 04:15 UNV Nystatin (Nystop) 1 luis felipe BID 03/26/18 21:00 04/08/18 17:43 DC 04/08/18 07:47 1 LUIS FELIPE Olanzapine (ZyPREXA ZYDIS) 5 mg PRN Q2HR PRN 03/21/18 04:15 04/08/18 17:43 DC 04/06/18 17:07 5 MG Olanzapine (ZyPREXA) 2.5 mg PRN Q2HR PRN 03/21/18 04:15 Cancel Piperacillin Sod/ Tazobactam Sod (Zosyn Per Pharmacy) 1 each PRN DAILY PRN 04/08/18 15:45 04/08/18 17:43 DC Pramipexole Dihydrochloride (miraPEX) 0.5 mg QHS 03/21/18 21:00 04/08/18 17:43 DC 04/07/18 20:43 0.5 MG Pravastatin Sodium (Pravachol) 40 mg DAILY 03/21/18 09:00 04/08/18 17:43 DC 04/08/18 07:45 40 MG Quetiapine Fumarate (SEROquel) 25 mg QHS 03/21/18 21:00 04/08/18 17:43 DC 04/07/18 20:43 25 MG Rivastigmine (Exelon) 1 patch DAILY 03/27/18 09:00 04/08/18 17:43 DC 04/08/18 07:45 1 PATCH Trazodone HCl (Desyrel) 75 mg QHS 03/21/18 21:00 04/08/18 17:43 DC 04/07/18 20:43 75 MG Vancomycin HCl (Vanco Per Pharmacy) 1 each PRN DAILY PRN 04/08/18 15:45 04/08/18 17:43 DC Vitamin D (Vitamin D3) 50,000 unit WEEKLY 03/22/18 13:45 04/08/18 17:43 DC 04/05/18 08:09 50,000 UNIT ROS: ROS: Constitutional: No fever or chills Eyes: No eye pain or blurred vision Skin: No rash or itching Cardiovascular: No chest pain, syncope, palpitations, dyspnea on exertion, or edema Respiratory: No cough or difficulty breathing Gastrointestinal: No nausea, vomiting, or abdominal pain Neurologic: No headaches or focal neurologic deficits Endocrine: No heat or cold intolerance Genitourinary: No incontinence or hematuria Musculoskeletal: No joint pain or swelling Lymphatics: No enlarged lymph nodes Psychiatric: No anxiety or depression PE: PE: Gen.: Alert, pleasant, no apparent distress HEENT: Normocephalic atraumatic, PERRLA EOMI, no scleral icterus, oral mucosa pink and moist Neck: Supple, no lymphadenopathy, nontender Cardiovascular: Normal S1 and S2 no murmurs Pulmonary: Lungs are clear bilaterally with good air movement no respiratory distress Abdomen: Soft nontender non-distended, bowel sounds present no masses Extremities: No clubbing, cyanosis or edema Neuro: Alert and oriented 3, cranial nerves II through XII grossly intact, no lateralizing neuro deficits Skin: Warm, dry Vitals: Vitals: Vital Signs Date Time Temp Pulse Resp B/P (MAP) Pulse Ox O2 Delivery O2 Flow Rate FiO2 04/08/18 16:26 98.8 64 18 109/71 (84) 94 Room Air Labs: Labs: Laboratory Tests Test 04/08/18 07:17 04/08/18 15:54 White Blood Count 9.8 x10^3/uL (4.0-11.0) Red Blood Count 3.79 x10^6/uL (4.30-5.70) Hemoglobin 11.7 g/dL (13.0-17.5) Hematocrit 34.3 % (39.0-53.0) Mean Corpuscular Volume 91 fL (79-100) Mean Corpuscular Hemoglobin 31 pg (25-35) Mean Corpuscular Hemoglobin Concent 34 g/dL (31-37) Red Cell Distribution Width 14.1 % (11.5-14.5) Platelet Count 154 x10^3/uL (140-400) Neutrophils (%) (Auto) 68 % (31-73) Lymphocytes (%) (Auto) 14 % (24-48) Monocytes (%) (Auto) 18 % (0-9) Eosinophils (%) (Auto) 1 % (0-3) Basophils (%) (Auto) 0 % (0-3) Neutrophils # (Auto) 6.6 x10^3uL (1.8-7.7) Lymphocytes # (Auto) 1.3 x10^3/uL (1.0-4.8) Monocytes # (Auto) 1.7 x10^3/uL (0.0-1.1) Eosinophils # (Auto) 0.1 x10^3/uL (0.0-0.7) Basophils # (Auto) 0.0 x10^3/uL (0.0-0.2) Sodium Level 138 mmol/L (136-145) Potassium Level 3.8 mmol/L (3.5-5.1) Chloride Level 104 mmol/L (98-107) Carbon Dioxide Level 31 mmol/L (21-32) Anion Gap 3 (6-14) Blood Urea Nitrogen 23 mg/dL (8-26) Creatinine 0.9 mg/dL (0.7-1.3) Estimated GFR (Cockcroft-Gault) 84.4 BUN/Creatinine Ratio 26 (6-20) Glucose Level 92 mg/dL (70-99) Calcium Level 8.0 mg/dL (8.5-10.1) Total Bilirubin 1.1 mg/dL (0.2-1.0) Aspartate Amino Transf (AST/SGOT) 14 U/L (15-37) Alanine Aminotransferase (ALT/SGPT) 10 U/L (16-63) Alkaline Phosphatase 56 U/L (46-116) Total Protein 5.7 g/dL (6.4-8.2) Albumin 2.5 g/dL (3.4-5.0) Albumin/Globulin Ratio 0.8 (1.0-1.7) Lactic Acid Level 0.7 mmol/L (0.4-2.0) CHRIS GREWAL DO Apr 09, 2018 01:11
--- NOTE | 2018-04-09 23:46 | DS ---
DATE OF DISCHARGE: 04/08/2018 DISCHARGE SUMMARY AND PSYCHIATRIC PROGRESS NOTE This is a late entry, date of service 04/08/2018 covers elements not covered in my initial note 04/08/2018. REASON FOR ADMISSION: Please refer to the admission history for details. Briefly, the patient is a 67-year-old male referred to us by his family physician after he was "fired from group home for behaviors, then went home with 24-hour care. Now fired by them for sexual impropriety. Recent increase in misbehavior and aggression towards ." The patient has a history of fairly erratic behavior, agitation, mood lability with sexually aggressive behavior, all of which he minimizes. His had obtained temporary guardianship proceedings to permanent guardianship as he also appeared to present with some symptoms suggestive of Lewy body dementia. He had failed outpatient psychiatric interventions, referred for inpatient psychiatric stabilization. SIGNIFICANT FINDINGS AND CLINICAL COURSE: Following admission, the patient was seen daily individually by myself, followed medically by Dr. Rahman/Dr. Suarez. The patient was quite labile in his mood, anxious, restless, frequently dropping himself to the floor, accusatory towards staff, aggressive. Adjustments were made in his psychotropics. He seemed to be responding to a combination of trazodone 75 mg at bedtime; Depakote ER 1500 mg at bedtime with a valproic acid level therapeutic at 50; Valium p.r.n.; trazodone 25 mg daily at 1700 hours; Exelon patch 4.6 mg daily, to be increased to 9.5 mg; Namenda 15 mg b.i.d.; melatonin 3 mg at bedtime; Celexa 40 mg a day; Seroquel 25 mg at bedtime; Zyprexa p.r.n. He would frequently refuse CPAP. He had many somatic symptoms, all of which were worked up by Dr. Rahman. CT abdomen was negative. Nevertheless, from a psychiatric standpoint, he was showing improved mood lability, agitation, aggression, but at this stage, developed a cellulitis and was transferred to the medical surgical floor for IV antibiotics. Dr. Valle had assumed care of the patient over the weekend prior to his transfer. REVIEW OF SYSTEMS: Prior to discharge on 04/08/2018, ambulation impaired, in wheelchair. No CV, , pulmonary, eye system symptoms on review. He has vague somatic symptoms. MENTAL STATUS EXAM: Oriented to himself and situation. Speech coherent, at times somewhat pressured. Abstraction fair. Computation, able to do one step on serial 7's. Attention span short. Language function intact. Short-term memory is impaired. Mood and affect remain somewhat anxious, labile, but improved. No suicidal or homicidal ideation. LABORATORY DATA: Reviewed. FINAL DIAGNOSES: Bipolar 1 disorder, mixed with history of psychotic features; major neurocognitive disorder, early possibly Lewy body with delusion, behavioral disturbance; anxiety disorder, unspecified; impulse control disorder, unspecified; personality disorder, unspecified; Parkinson's disease; cellulitis. Rest unchanged from admission. The patient does have a deep brain stimulator for his Parkinson's disease and this was assessed for problems during this hospitalization, both by the [facility] and in coordination with his neurologist and Dr. Daugherty followed him from a neurology standpoint. Psychiatric and medical followup on per Dr. Rahman. Time for discharge day management greater than 30 minutes. MAN Rosa PRUETT MD DR: MARCEL/nano JOB#: [id number] / [id number]
== END 2018-04-08 17:30 | disposition short-term general hospital (02) | DRG 57 ==
LOC: GEROPSY 02:49
PROVIDERS: ADMIT Psychiatry & Neurology Psychiatry; ATTEND Psychiatry & Neurology Psychiatry
DX: G20 Parkinson's disease (principal); Z68.41 Body mass index [BMI] 40.0-44.9, adult; F01.51 Vascular dementia, unspecified severity, with behavioral disturbance; F02.81 Dementia in other diseases classified elsewhere, unspecified severity, with behavioral disturbance; L03.90 Cellulitis, unspecified; F31.60 Bipolar disorder, current episode mixed, unspecified; E66.01 Morbid (severe) obesity due to excess calories; K59.09 Other constipation; E55.9 Vitamin D deficiency, unspecified; E78.5 Hyperlipidemia, unspecified; F09 Unspecified mental disorder due to known physiological condition; F17.210 Nicotine dependence, cigarettes, uncomplicated; F63.9 Impulse disorder, unspecified; F41.9 Anxiety disorder, unspecified; M19.90 Unspecified osteoarthritis, unspecified site; Z53.20 Procedure and treatment not carried out because of patient's decision for unspecified reasons; I10 Essential (primary) hypertension; G47.33 Obstructive sleep apnea (adult) (pediatric); F60.9 Personality disorder, unspecified; Z91.19 Patient's noncompliance with other medical treatment and regimen; Z23 Encounter for immunization; Z79.899 Other long term (current) drug therapy
CPT/HCPCS: 36415; 70450; 73502; 74176; 80053; 80061; 80164; 81001; 82306; 82607; 83036; 83540; 83550; 83605; 84436; 84443; 84480; 85025; 86592; 87040; 90471; 90756; 93005; 97110; 97116; 97530; Q2035

== ENCOUNTER 2018-04-08 17:00 | Inpatient (IN) | payer MEDICARE ==
[~2018-04-08] VITALS: Ht 185.4 cm; Wt 137.6 kg
[~2018-04-08 17:00] MED LIST: ACET325T9 PO; ASCO500T3 PO; ASPI-630 PO; CARB1TAB2 PO; CARB1TAB44 PO; CEPH-264 PO; CHOL500050 PO; CITA40TA12 PO; DIAZ2TAB3 PO; DICL100G18 TP; DIVA-53 PO; DOCU100C28 PO; ESCITALOPRAM OX20 MG PO; FERR325T14 PO; FLUT16SP21 NS; HYDR453.3 TP; IBUP400T18 PO; INUL1TAB4 PO; LACT10SO PO; LACT1CAP21 PO; LINA145C PO; MAGN2400 PO; MAGN400T3 PO; MELA3TAB2 PO; MEMA10TA PO; METF500T3 PO; METH29OI TP; MICO45CR3 TP; MULT1TAB52 PO; NYST15PO9 TP; OLAN5TAB5 PO; PRAM0.255 PO; PRAV40TA2 PO; QUET25TA5 PO; RIVA1PAT22 TP; TEST100V2 IM; TEST200V3 IM; TRAZ-85 PO
[2018-04-08 18:00] VITALS: BP 120/74
[2018-04-08] MEDS ORDERED: VANCOMYCIN PER PHARMACY MC PRN (18:45)
[2018-04-08] MEDS ORDERED: PIP/TAZO PER PHARMACY MC PRN (18:45)
--- NOTE | 2018-04-08 18:45 | NUR ---
The patient, QUINTIN KINGSLEY, 67 y/o, M admitted by CHRIS GREWAL DO, was given written information regarding hospital policies, unit procedures and contact persons. Pt transferred from [facility] to room 109 via , accompanied by hospital staff. DX: cellulitis. Pt with significant redness, swelling, erythema to right upper arm. Scabbed area to right elbow from previous fall prior to arrival. Pt also has trauma to right great toe where nail is missing. Pics obtained, placed in chart. Wound care consulted. Orders received for vancomycin and zosyn per pharmacy. Pt pleasant, cooperative. Sitting up on bedside. Box lunch provided per request. POC discussed, pt V/U. Pt's /DPOA notified via phone of transfer and patient status. Bed in lowest position, call light in reach. Valuables were checked and logged. Left in room with patient.
[2018-04-08 19:14] VITALS: BP 112/72
[2018-04-08] MEDS ORDERED: VANCOMYCIN 2 GM in IV NORMAL SALINE 500ML 500 ML IV ONE (20:00)
[2018-04-08] MEDS ORDERED: MAG HYDROX/AL HYDROX/SIMETH 30 ML ORAL.SUSP PO PRN (20:15)
[2018-04-08] MEDS ORDERED: DICLOFENAC SODIUM 1% TOPICAL GEL 100GM TUBE. TP PRN (20:15)
[2018-04-08] MEDS ORDERED: METHYL SALICYLATE/MENTHOL TOPICAL OINTMENT 29GM TUBE. TP PRN (20:15)
[2018-04-08] MEDS ORDERED: MAG30ORA2 PO (20:20)
[2018-04-08] MEDS ORDERED: LACT10SO26 PO (20:20)
[2018-04-08] MEDS ORDERED: IBUPROFEN 600 MG TABLET. PO PRN (20:45)
[2018-04-08] MEDS ORDERED: MAGNESIUM HYDROXIDE 2,400 MG/30 ML ORAL.SUSP. PO PRN (21:00)
[2018-04-08] MEDS ORDERED: MICONAZOLE NITRATE 2% TOPICAL CREAM 28GM TUBE. TP PRN (21:00)
[2018-04-08] MEDS: NYSTATIN TOPICAL POWDER 15GM BOTTLE. TP SCH (21:00)
[2018-04-08] MEDS ORDERED: HYDROCORTISONE 1% TOPICAL CREAM 30GM TUBE. TP PRN (21:00)
[2018-04-08] MEDS: traZODone 50 MG TABLET. PO SCH (21:19)
[2018-04-08] MEDS: MAGNESIUM OXIDE 400 MG TABLET PO SCH (21:20)
[2018-04-08] MEDS: QUEtiapine 25 MG TABLET. PO SCH (21:20)
[2018-04-08] MEDS: CARBIDOPA/LEVODOPA CR 50/200MG TABLET.SA PO SCH (21:20)
[2018-04-08] MEDS: diazePAM 2 MG TABLET PO PRN (21:20)
[2018-04-08] MEDS: DIVALPROEX ER 500 MG TAB.ER.24H PO SCH (21:20)
[2018-04-08] MEDS: MELATONIN 3 MG TABLET PO SCH (21:20)
[2018-04-08] MEDS: DOCUSATE SODIUM 100 MG CAPSULE PO SCH (21:21)
[2018-04-08] MEDS: PRAMIPEXOLE 0.5 MG TABLET. PO SCH (21:21)
[2018-04-08] MEDS: LACTOBACILLUS RHAMNOSUS GG 1 CAPSULE. PO SCH (21:21)
[2018-04-08] MEDS: CARBIDOPA/LEVODOPA 25/100MG TABLET PO SCH (21:23)
--- NOTE | 2018-04-08 21:30 | NUR ---
Pharmacy Vancomycin Dosing Note S:Consulted to monitor and dose vancomycin started 04/08/18. O:QUINTIN KINGSLEY is a 67 year old M with Cellulitis . Height: 6 feet, 1 inches Weight: 135.231507 kg [place] Body Weight: 79.90 Adjusted Body Weight: 102.06 Dosing Weight: Actual Other Antibiotics: ZOSYN 3.375GM IV Q6HR LABS: Last BUN: 23 Last Creatinine: 0.9 Creatinine Clearance: 104.9 Last WBC: 9.8 Last Platelets: 154 Vancomycin Dosing: Loading Dose: 2000 mg x1 Dosing Weight: Actual Target Trough: 10-20 A: Based on: Actual weight, renal function and indication P: 1. Begin Vancomycin 1500 mg IV q8h 2. Follow up Trough level on 04/09/18 at 2030 3. Pharmacy will continue to monitor, follow and adjust therapy as needed. ASYA BLEDSOE, 04/08/18 0298
--- NOTE | 2018-04-08 21:31 | NUR ---
PHARMACY DOSING NOTE FOR ZOSYN: ZOSYN 3.375gm IV Q6HR for cellulitis with a CrCl 104.9, Pharmacy will continue to monitor.
[2018-04-08 22:04] VITALS: BP 128/60
[2018-04-08] MEDS: PIPERACILLIN/TAZOBACTAM 3.375 GM in IV NORMAL SALINE 50ML 50 ML IV SCH (23:12)
[2018-04-09] MEDS: VANCOMYCIN 1.5 GM in IV NORMAL SALINE 500ML 500 ML IV SCH ×3 (04:09→20:56)
[2018-04-09 05:02] VITALS: BP 136/73
[2018-04-09 06:07] LABS: BASO % 1 % (0-3); EOS # 0.1 x10^3/uL (0.0-0.7); EOS % 1 % (0-3); HEMATOCRIT 33.8 % (39.0-53.0); HEMOGLOBIN 11.4 g/dL (13.0-17.5); LYMPH # 1.3 x10^3/uL (1.0-4.8); LYMPH % 16 % (24-48); MEAN CORPUSCULAR HEMOGLOBIN 31 pg (25-35); MEAN CORPUSCULAR HGB CONC 34 g/dL (31-37); MEAN CORPUSCULAR VOLUME 91 fL (79-100); MONO # 1.3 x10^3/uL (0.0-1.1); MONO % 16 % (0-9); NEUT # 5.3 x10^3uL (1.8-7.7); NEUT % 66 % (31-73); PLATELET COUNT 159 x10^3/uL (140-400); RED BLOOD COUNT 3.72 x10^6/uL (4.30-5.70); RED CELL DISTRIBUTION WIDTH 13.6 % (11.5-14.5)
[2018-04-09] MEDS: CARBIDOPA/LEVODOPA 25/100MG TABLET PO SCH ×9 (06:15→22:00)
[2018-04-09] MEDS: FERROUS SULFATE 325 MG TABLET. PO SCH (06:15)
[2018-04-09] MEDS: PIPERACILLIN/TAZOBACTAM 3.375 GM in IV NORMAL SALINE 50ML 50 ML IV SCH ×4 (06:16→23:28)
[2018-04-09 06:24] LABS: ALBUMIN 2.3 g/dL (3.4-5.0); ALBUMIN/GLOBULIN RATIO 0.7 (1.0-1.7); CREATININE 0.9 mg/dL (0.7-1.3); GFR 84.4; POTASSIUM 3.9 mmol/L (3.5-5.1); TOTAL BILIRUBIN 0.8 mg/dL (0.2-1.0); TOTAL PROTEIN 5.5 g/dL (6.4-8.2)
[2018-04-09] MEDS: MAGNESIUM OXIDE 400 MG TABLET PO SCH ×2 (08:31→20:53)
[2018-04-09] MEDS: DOCUSATE SODIUM 100 MG CAPSULE PO SCH ×2 (08:31→20:55)
[2018-04-09] MEDS: metFORMIN XR 500 MG TAB.ER.24H PO SCH (08:31)
[2018-04-09] MEDS: MEMANTINE 5 MG TABLET. PO SCH ×2 (08:31→17:16)
[2018-04-09] MEDS: LINACLOTIDE 145 MCG CAPSULE. PO SCH (08:31)
[2018-04-09] MEDS: ASCORBIC ACID 500 MG TABLET PO SCH (08:31)
[2018-04-09] MEDS: MULTIVITAMIN with MINERAL TABLET. PO SCH (08:31)
[2018-04-09] MEDS: LACTOBACILLUS RHAMNOSUS GG 1 CAPSULE. PO SCH ×2 (08:31→20:53)
[2018-04-09] MEDS: ASPIRIN 81 MG TAB.CHEW PO SCH (08:31)
[2018-04-09] MEDS: LACTULOSE 20 GM/30 ML SOLUTION. PO SCH (08:32)
[2018-04-09] MEDS: RIVASTIGMINE 4.6MG PATCH. TD SCH (08:32)
--- NOTE | 2018-04-09 08:33 | NUR ---
Wound Care Wound care consult for wounds to R great toe and R elbow. Pt has small wound to r elbow that is reddened and swollen, no drainage noted. Cleansed wound and applied xeroform and foam dressing. Continue to monitor for worsening infection. R great toe has dry blood present but wound bed is healing from traumatic removal of great toe nail. Cleansed area, applied xeroform and telfa pad. No other wounds found on full skin inspection. Pt educated on PU prevention. Recommend to change every 2-3 days. WC will continue to follow for possible changes.
[2018-04-09] MEDS: FLUTICASONE 50MCG/NASAL SPRAY 16GM BOTTLE. NS SCH (08:36)
[2018-04-09] MEDS: NYSTATIN TOPICAL POWDER 15GM BOTTLE. TP SCH ×2 (09:00→20:55)
[2018-04-09] MEDS: ACETAMINOPHEN 325 MG TABLET PO PRN (09:07)
[2018-04-09] MEDS: CITALOPRAM 20 MG TABLET. PO SCH (09:07)
[2018-04-09] MEDS: PRAVASTATIN 20 MG TABLET. PO SCH (09:07)
[2018-04-09 10:57] VITALS: BP 117/74
[2018-04-09 14:56] VITALS: BP 137/73
[2018-04-09] MEDS: traZODone 50 MG TABLET. PO SCH ×2 (17:26→20:54)
--- NOTE | 2018-04-09 17:53 | PDOC1 ---
History and Physical Date of Admission: Date of Admission: April 08, 2018 Chief Complaint: Chief Complain: Wound infection with cellulitis of the right upper extremity Source: Source: Caregiver, Chart review, Patient HPI: HPI: The patient is a 67-year-old male patient brought down from the [facility] unit after failing by mouth Keflex for right olecranon wound infection and cellulitis. [facility] staff report that the patient at some point had a fall and suffered a laceration at the right olecranon which was sutured and after the patient picking at it subsequently dehisced. He developed a cellulitis and was being treated with Keflex however [facility] staff yesterday noted he was febrile with a temperature of 100.8F. There was swelling and erythema of the right arm which extended from mid humerus to the mid forearm, and although the patient has dementia he was complaining of pain and swelling at the extremity. No weakness or other neurologic deficit noted at the right arm. Labs, blood, and wound cultures were obtained and the patient was brought down to the medical floor for broad-spectrum IV antibiotics (Zosyn and vancomycin) until culture and sensitivities were obtained. He initially was admitted to the [facility] unit after the 24-hour home care agency and a residential fired him for sexually inappropriate behavior that had recently increased with aggression specifically directed towards his . He has history of Lewy body with dementia and Parkinson disease. His white blood cell count was 9.8, lactic acid 0.7, albumin 2.5, and blood and wound cultures are pending. Since initiation of intravenous antibiotics fever has resolved. Today the erythema has receded dramatically to an approximately 5 cm halo of erythema surrounding the wound and the swelling has nearly resolved completely. Patient reports significant improvement in pain control and I find him sleeping in his bed in no apparent distress. Past Medical History: Cardiovascular: hyperipidemia Pulmonary: Other (obstructive sleep apnea) PRIME BROKER: Dementia (Lewy Body dementia, Parkinson's) GI: Constipation Endocrine: Other (hypogonadism) Past Surgical History: PSH: Left rotator cuff repair, tonsillectomy, deep brain stimulator, left posterior tibial tendon repair Social History: Smoke: No Alcohol: none Drugs: None Allergies: Allergies: Coded Allergies: No Known Drug Allergies (Unverified , 03/21/18) Current Medications: Current Medications: Current Medications Medications (Trade) Dose Ordered Sig/Lucero Start Time Stop Time Status Last Admin Dose Admin Acetaminophen (Tylenol) 650 mg PRN Q6HRS PRN 04/08/18 20:15 04/09/18 09:07 650 MG Al Hydroxide/Mg Hydroxide (Mylanta Plus Xs) 15 ml PRN AFTMEALHC PRN 04/08/18 20:15 Ascorbic Acid (Vitamin C) 500 mg DAILY 04/09/18 09:00 04/09/18 08:31 500 MG Aspirin (Children'S Aspirin) 81 mg DAILYWBKFT 04/09/18 08:00 04/09/18 08:31 81 MG Carbidopa/Levodopa (Sinemet 25/100) 0.5 tab Q2HR W/A 04/08/18 22:00 04/09/18 15:56 0.5 TAB Carbidopa/Levodopa (Sinemet Cr) 1 tab.sa HS 04/08/18 21:00 04/08/18 21:20 1 TAB.SA Citalopram Hydrobromide (CeleXA) 40 mg DAILY 04/09/18 09:00 04/09/18 09:07 40 MG Diazepam (Valium) 2 mg PRN Q6HRS PRN 04/08/18 21:00 04/08/18 21:20 2 MG Diclofenac Sodium (Voltaren) 1 luis felipe PRN TID PRN 04/08/18 20:15 Divalproex Sodium (Depakote Er) 1,500 mg HS 04/08/18 21:00 04/08/18 21:20 1,500 MG Docusate Sodium (Colace) 100 mg BID 04/08/18 21:00 04/09/18 08:31 100 MG Ferrous Sulfate (Feosol) 650 mg DAILY06 04/09/18 06:00 04/09/18 06:15 650 MG Fluticasone Propionate (Flonase) 2 spray DAILY 04/09/18 09:00 Hydrocortisone (Cortaid) 1 luis felipe PRN BID PRN 04/08/18 21:00 Ibuprofen (Motrin) 600 mg PRN BID PRN 04/08/18 20:45 Lactobacillus Rhamnosus (Culturelle) 1 cap BID 04/08/18 21:00 04/09/18 08:31 1 CAP Lactulose (Lactulose) 15 gm DAILYWBKFT 04/09/18 08:00 04/09/18 08:32 15 GM Linaclotide (Linzess) 145 mcg DAILY 04/09/18 09:00 04/09/18 08:31 145 MCG Magnesium Hydroxide (Milk Of Magnesia) 2,400 mg PRN QHS PRN 04/08/18 21:00 Magnesium Oxide (Magnesium Oxide) 400 mg BID 04/08/18 21:00 04/09/18 08:31 400 MG Melatonin 3 mg QHS 04/08/18 21:00 04/08/18 21:20 3 MG Memantine (Namenda) 5 mg BIDWMEALS 04/09/18 08:00 04/09/18 17:16 5 MG Metformin HCl (Glucophage Xr) 1,000 mg DAILYWBKFT 04/09/18 08:00 04/09/18 08:31 1,000 MG Miconazole Nitrate (Monistat-Derm) 1 luis felipe PRN BID PRN 04/08/18 21:00 Multi-Ingredient Ointment (Analgesic [place]) 1 luis felipe PRN QID PRN 04/08/18 20:15 Multivitamins/ Calcium (Thera-M Plus) 1 tab DAILY 04/09/18 09:00 04/09/18 08:31 1 TAB Nystatin (Nystop) 1 luis felipe BID 04/08/18 21:00 04/09/18 09:00 1 LUIS FELIPE Olanzapine (ZyPREXA ZYDIS) 5 mg PRN Q2HR PRN 04/08/18 20:15 Piperacillin Sod/ Tazobactam Sod (Zosyn Per Pharmacy) 1 each PRN DAILY PRN 04/08/18 18:45 04/08/18 21:26 1 EACH Piperacillin Sod/ Tazobactam Sod 3.375 gm/Sodium Chloride 50 ml @ 100 mls/hr Q6HRS 04/09/18 00:00 04/09/18 12:10 100 MLS/HR Pramipexole Dihydrochloride (miraPEX) 0.5 mg HS 04/08/18 21:00 04/08/18 21:21 0.5 MG Pravastatin Sodium (Pravachol) 40 mg DAILY 04/09/18 09:00 04/09/18 09:07 40 MG Quetiapine Fumarate (SEROquel) 25 mg QHS 04/08/18 21:15 04/08/18 21:20 25 MG Rivastigmine (Exelon) 1 patch DAILY 04/09/18 09:00 04/09/18 08:32 1 PATCH Trazodone HCl (Desyrel) 75 mg HS 04/08/18 21:15 04/08/18 21:19 75 MG Vancomycin HCl (Vanco Per Pharmacy) 1 each PRN DAILY PRN 04/08/18 18:45 04/08/18 21:29 1 EACH Vancomycin HCl (Vancomycin Trough Level) 1 each 1X ONCE 04/09/18 19:30 04/09/18 19:31 Vancomycin HCl 1.5 gm/Sodium Chloride 500 ml @ 250 mls/hr Q8H 04/09/18 04:00 04/09/18 12:55 250 MLS/HR Vancomycin HCl 2 gm/Sodium Chloride 500 ml @ 250 mls/hr 1X ONCE 04/08/18 20:00 04/08/18 21:59 DC 04/08/18 20:26 250 MLS/HR Vitamin D (Vitamin D3) 50,000 unit WEEKLY 04/12/18 09:00 ROS: ROS: Constitutional: See history of present illness Eyes: No eye pain or blurred vision Skin: No rash or itching Cardiovascular: No chest pain, syncope, palpitations, dyspnea on exertion, or edema Respiratory: No cough or difficulty breathing Gastrointestinal: No nausea, vomiting, or abdominal pain Neurologic: No headaches or focal neurologic deficits Endocrine: No heat or cold intolerance Genitourinary: No incontinence or hematuria Musculoskeletal: See history of present illness Lymphatics: No enlarged lymph nodes Psychiatric: See history of present illness PE: PE: Gen.: Sleeping but arouses easily to verbal stimuli, lying in bed in no apparent distress HEENT: Normocephalic atraumatic, PERRLA EOMI, no scleral icterus, oral mucosa pink and moist Neck: Supple, no lymphadenopathy, nontender Cardiovascular: Normal S1 and S2 no murmurs Pulmonary: Lungs are clear bilaterally with good air movement no respiratory distress Abdomen: Soft nontender non-distended, bowel sounds present no masses Extremities: Sterile dressing overlying right olecranon wound with 5 cm halo of erythema and warmth Neuro: Alert cranial nerves II through XII grossly intact, no lateralizing neuro deficits Vitals: Vitals: Vital Signs Date Time Temp Pulse Resp B/P (MAP) Pulse Ox O2 Delivery O2 Flow Rate FiO2 10/23/18 14:56 97.4 56 18 137/73 (94) 95 Room Air Labs: Labs: Laboratory Tests Test 04/09/18 05:59 White Blood Count 8.0 x10^3/uL (4.0-11.0) Red Blood Count 3.72 x10^6/uL (4.30-5.70) Hemoglobin 11.4 g/dL (13.0-17.5) Hematocrit 33.8 % (39.0-53.0) Mean Corpuscular Volume 91 fL (79-100) Mean Corpuscular Hemoglobin 31 pg (25-35) Mean Corpuscular Hemoglobin Concent 34 g/dL (31-37) Red Cell Distribution Width 13.6 % (11.5-14.5) Platelet Count 159 x10^3/uL (140-400) Neutrophils (%) (Auto) 66 % (31-73) Lymphocytes (%) (Auto) 16 % (24-48) Monocytes (%) (Auto) 16 % (0-9) Eosinophils (%) (Auto) 1 % (0-3) Basophils (%) (Auto) 1 % (0-3) Neutrophils # (Auto) 5.3 x10^3uL (1.8-7.7) Lymphocytes # (Auto) 1.3 x10^3/uL (1.0-4.8) Monocytes # (Auto) 1.3 x10^3/uL (0.0-1.1) Eosinophils # (Auto) 0.1 x10^3/uL (0.0-0.7) Basophils # (Auto) 0.0 x10^3/uL (0.0-0.2) Sodium Level 137 mmol/L (136-145) Potassium Level 3.9 mmol/L (3.5-5.1) Chloride Level 103 mmol/L (98-107) Carbon Dioxide Level 32 mmol/L (21-32) Anion Gap 2 (6-14) Blood Urea Nitrogen 18 mg/dL (8-26) Creatinine 0.9 mg/dL (0.7-1.3) Estimated GFR (Cockcroft-Gault) 84.4 BUN/Creatinine Ratio 20 (6-20) Glucose Level 104 mg/dL (70-99) Calcium Level 8.0 mg/dL (8.5-10.1) Total Bilirubin 0.8 mg/dL (0.2-1.0) Aspartate Amino Transf (AST/SGOT) 11 U/L (15-37) Alanine Aminotransferase (ALT/SGPT) 8 U/L (16-63) Alkaline Phosphatase 54 U/L (46-116) Total Protein 5.5 g/dL (6.4-8.2) Albumin 2.3 g/dL (3.4-5.0) Albumin/Globulin Ratio 0.7 (1.0-1.7) VTE Prophylaxis: VTE Prophylaxis Devices: No VTE Pharmacological Prophylaxi: No Assessment/Plan: A/P: Wound infection with cellulitis Febrile illness History of Lewy body dementia and Parkinson's disease Severe protein calorie malnutrition Continue wound care and intravenous antibiotics. Change to by mouth meds when able based upon culture and sensitivities. Consult CHRIS Ann DO Apr 09, 2018 17:53
--- NOTE | 2018-04-09 18:40 | PDOC ---
Exam Note: Сергей Note: Please also refer to the separate dictated note~for this date of service dictated separately.~Patient seen individually. Discussed the patient with Nursing staff reviewed the chart.~Reviewed interim history and current functioning. Reviewed vital signs,~Labs/ Radiology~and current medications noted below. Continue current treatment with the changes noted in the dictated addendum note Assessment: Vital Signs: Vital Signs Date Time Temp Pulse Resp B/P (MAP) Pulse Ox O2 Delivery O2 Flow Rate FiO2 04/09/18 14:56 97.4 56 18 137/73 (94) 95 Room Air I&O Intake and Output 04/09/18 07:00 Intake Total 1820 ml Output Total 875 ml Balance 945 ml Intake Oral 1160 ml IV Total 660 ml Output Urine Total 875 ml Labs: Laboratory Tests Test 04/09/18 05:59 White Blood Count 8.0 x10^3/uL (4.0-11.0) Red Blood Count 3.72 x10^6/uL (4.30-5.70) L Hemoglobin 11.4 g/dL (13.0-17.5) L Hematocrit 33.8 % (39.0-53.0) L Mean Corpuscular Volume 91 fL (79-100) Mean Corpuscular Hemoglobin 31 pg (25-35) Mean Corpuscular Hemoglobin Concent 34 g/dL (31-37) Red Cell Distribution Width 13.6 % (11.5-14.5) Platelet Count 159 x10^3/uL (140-400) Neutrophils (%) (Auto) 66 % (31-73) Lymphocytes (%) (Auto) 16 % (24-48) L Monocytes (%) (Auto) 16 % (0-9) H Eosinophils (%) (Auto) 1 % (0-3) Basophils (%) (Auto) 1 % (0-3) Neutrophils # (Auto) 5.3 x10^3uL (1.8-7.7) Lymphocytes # (Auto) 1.3 x10^3/uL (1.0-4.8) Monocytes # (Auto) 1.3 x10^3/uL (0.0-1.1) H Eosinophils # (Auto) 0.1 x10^3/uL (0.0-0.7) Basophils # (Auto) 0.0 x10^3/uL (0.0-0.2) Sodium Level 137 mmol/L (136-145) Potassium Level 3.9 mmol/L (3.5-5.1) Chloride Level 103 mmol/L (98-107) Carbon Dioxide Level 32 mmol/L (21-32) Anion Gap 2 (6-14) L Blood Urea Nitrogen 18 mg/dL (8-26) Creatinine 0.9 mg/dL (0.7-1.3) Estimated GFR (Cockcroft-Gault) 84.4 BUN/Creatinine Ratio 20 (6-20) Glucose Level 104 mg/dL (70-99) H Calcium Level 8.0 mg/dL (8.5-10.1) L Total Bilirubin 0.8 mg/dL (0.2-1.0) Aspartate Amino Transferase (AST) 11 U/L (15-37) L Alanine Aminotransferase (ALT) 8 U/L (16-63) L Alkaline Phosphatase 54 U/L (46-116) Total Protein 5.5 g/dL (6.4-8.2) L Albumin 2.3 g/dL (3.4-5.0) L Albumin/Globulin Ratio 0.7 (1.0-1.7) L Current Medications: Meds: Current Medications Vancomycin HCl (Vanco Per Pharmacy) 1 each PRN DAILY PRN MC SEE COMMENTS Last administered on 04/08/18at 21:29; Start 04/08/18 at 18:45 Piperacillin Sod/ Tazobactam Sod (Zosyn Per Pharmacy) 1 each PRN DAILY PRN MC SEE COMMENTS Last administered on 04/08/18at 21:26; Start 04/08/18 at 18:45 Piperacillin Sod/ Tazobactam Sod 3.375 gm/Sodium Chloride 50 ml @ 100 mls/hr Q6HRS IV Last administered on 04/09/18at 17:49; Start 04/09/18 at 00:00 Vancomycin HCl 2 gm/Sodium Chloride 500 ml @ 250 mls/hr 1X ONCE IV Last administered on 04/08/18at 20:26; Start 04/08/18 at 20:00; Stop 04/08/18 at 21 :59; Status DC Vancomycin HCl 1.5 gm/Sodium Chloride 500 ml @ 250 mls/hr Q8H IV Last administered on 04/09/18at 12:55; Start 04/09/18 at 04:00 Vancomycin HCl (Vancomycin Trough Level) 1 each 1X ONCE MC ; Start 04/09/18 at 19:30; Stop 04/09/18 at 19:31 Acetaminophen (Tylenol) 650 mg PRN Q6HRS PRN PO PAIN / TEMP Last administered on 04/09/18at 09:07; Start 04/08/18 at 20:15 Ascorbic Acid (Vitamin C) 500 mg DAILY PO Last administered on 04/09/18at 08:31 ; Start 04/09/18 at 09:00 Carbidopa/Levodopa (Sinemet 25/100) 0.5 tab Q2HR W/A PO Last administered on 04/09/18at 17:49; Start 04/08/18 at 22:00 Vitamin D (Vitamin D3) 50,000 unit WEEKLY PO ; Start 04/12/18 at 09:00 Diclofenac Sodium (Voltaren) 1 juan PRN TID PRN TP MUSCLE PAIN; Start 04/08/18 at 20:15 Ferrous Sulfate (Feosol) 650 mg DAILY06 PO Last administered on 04/09/18at 06: 15; Start 04/09/18 at 06:00 Ibuprofen (Motrin) 600 mg PRN BID PRN PO PAIN; Start 04/08/18 at 20:45 Linaclotide (Linzess) 145 mcg DAILY PO Last administered on 04/09/18at 08:31; Start 04/09/18 at 09:00 Al Hydroxide/Mg Hydroxide (Mylanta Plus Xs) 15 ml PRN AFTMEALHC PRN PO DYSPEPSIA; Start 04/08/18 at 20:15 Multi-Ingredient Ointment (Analgesic [place]) 1 juan PRN QID PRN TP MUSCLE PAIN; Start 04/08/18 at 20:15 Nystatin (Nystop) 1 juan BID TP Last administered on 04/09/18at 09:00; Start at 21:00 Olanzapine (ZyPREXA ZYDIS) 5 mg PRN Q2HR PRN PO ANXIETY / AGITATION; Start at 20:15 Aspirin (Children'S Aspirin) 81 mg DAILYWBKFT PO Last administered on at 08:31; Start 04/09/18 at 08:00 Carbidopa/Levodopa (Sinemet Cr) 1 tab.sa HS PO Last administered on 04/08/18 21:20; Start 04/08/18 at 21:00 Citalopram Hydrobromide (CeleXA) 40 mg DAILY PO Last administered on at 09:07; Start 04/09/18 at 09:00 Diazepam (Valium) 2 mg PRN Q6HRS PRN PO ANXIETY / AGITATION Last administered on 04/08/18 21:20; Start 04/08/18 at 21:00 Divalproex Sodium (Depakote Er) 1,500 mg HS PO Last administered on 04/08/18 21:20; Start 04/08/18 at 21:00 Docusate Sodium (Colace) 100 mg BID PO Last administered on 04/09/18 08:31; Start 04/08/18 at 21:00 Fluticasone Propionate (Flonase) 2 spray DAILY NS ; Start 04/09/18 at 09:00 Hydrocortisone (Cortaid) 1 juan PRN BID PRN TP RASH; Start 04/08/18 at 21:00 Lactobacillus Rhamnosus (Culturelle) 1 cap BID PO Last administered on 08:31; Start 04/08/18 at 21:00 Lactulose (Lactulose) 15 gm DAILYWBKFT PO Last administered on 04/09/18 08:32 ; Start 04/09/18 at 08:00 Magnesium Hydroxide (Milk Of Magnesia) 2,400 mg PRN QHS PRN PO CONSTIPATION; Start 04/08/18 at 21:00 Magnesium Oxide (Magnesium Oxide) 400 mg BID PO Last administered on at 08:31; Start 04/08/18 at 21:00 Melatonin 3 mg QHS PO Last administered on 04/08/18 21:20; Start 04/08/18 at 21:00 Memantine (Namenda) 5 mg BIDWMEALS PO Last administered on 04/09/18 17:16; Start 04/09/18 at 08:00 Metformin HCl (Glucophage Xr) 1,000 mg DAILYWBKFT PO Last administered on 04/09 08:31; Start 04/09/18 at 08:00 Miconazole Nitrate (Monistat-Derm) 1 juan PRN BID PRN TP RASH; Start 04/08/18 at 21:00 Multivitamins/ Calcium (Thera-M Plus) 1 tab DAILY PO Last administered on 04/09at 08:31; Start 04/09/18 at 09:00 Pramipexole Dihydrochloride (miraPEX) 0.5 mg HS PO Last administered on at 21:21; Start 04/08/18 at 21:00 Pravastatin Sodium (Pravachol) 40 mg DAILY PO Last administered on 04/09/18at 09:07; Start 04/09/18 at 09:00 Quetiapine Fumarate (SEROquel) 25 mg QHS PO Last administered on 04/08/18at 21: 20; Start 04/08/18 at 21:15 Rivastigmine (Exelon) 1 patch DAILY TD Last administered on 04/09/18at 08:32; Start 04/09/18 at 09:00 Trazodone HCl (Desyrel) 25 mg DAILYWSUP PO Last administered on 04/09/18at 17: 26; Start 04/09/18 at 17:00 Trazodone HCl (Desyrel) 75 mg HS PO Last administered on 04/08/18at 21:19; Start 04/08/18 at 21:15 Active Scripts Active Reported Mag-Al Plus Xs Suspension (Mag Hydrox/Al Hydrox/Simeth) 30 Ml Oral.susp 15 Ml PO PRN AFTMEALHC PRN Lactulose 10 Gm/15 Ml Solution 15 Gm PO DAILYWBKFT EXELON 4.6mg/24hr (Rivastigmine) 1 Each Patch.td24 1 Patch TP DAILY Seroquel (Quetiapine Fumarate) 25 Mg Tablet 1 Tab PO QHS Zyprexa Zydis (Olanzapine) 5 Mg Tab.rapdis 5 Mg PO PRN Q2HR PRN Analgesic [place] (Methyl Salicylate/Menthol) 28 Gm Oint...g. 1 Juan TP QID PRN Namenda (Memantine Hcl) 10 Mg Tablet 0.5 Tab PO BIDWMEALS Melatonin 3 Mg Tablet 1 Tab PO QHS Culturelle (Lactobacillus Rhamnosus Gg) 1 Each Capsule 1 Each PO BID Celexa (Citalopram Hydrobromide) 40 Mg Tablet 40 Mg PO DAILY Glucophage Xr (Metformin Hcl) 500 Mg Tab.er.24h 2 Tab PO DAILYWBKFT Nystatin 15 Gm Powder 1 Juan TP BID Milk Of Magnesia (Magnesium Hydroxide) 2,400 Mg/10 Ml Oral.susp 2,400 Mg PO HS PRN Voltaren (Diclofenac Sodium) 100 Gm Gel..gram. 1 Juan TP PRN TID PRN FOR NECK PAIN Vitamin D3 (Cholecalciferol (Vitamin D3)) 50,000 Unit Capsule 50,000 Unit PO WEEKLY Tylenol (Acetaminophen) 325 Mg Tablet 2 Tab PO PRN Q6HRS PRN Pravastatin Sodium 40 Mg Tablet 40 Mg PO DAILY Carbidopa-Levo Er 50-200 Tab (Carbidopa/Levodopa) 1 Each Tablet.er 1 Each PO HS Sinemet 25-100 Mg Tablet (Carbidopa/Levodopa) 1 Each Tablet 0.5 Tab PO Q2HR W/A Diazepam 2 Mg Tablet 2 Mg PO PRN Q6HRS PRN Mirapex (Pramipexole Di-Hcl) 0.25 Mg Tablet 0.5 Mg PO HS Linzess (Linaclotide) 145 Mcg Capsule 145 Mcg PO DAILY Trazodone Hcl 50 Mg Tablet 75 Mg PO HS Divalproex Sodium 500 Mg Tablet.dr 1,500 Mg PO HS Hydrocortisone 453.6 Gm Cream..g. 1 Juan TP PRN BID PRN Ferrous Sulfate 325 Mg Tablet 650 Mg PO DAILY06 Magnesium Oxide 400 Mg Tablet 400 Mg PO BID Miconazole Nitrate 45 Gm Cream.appl 1 Juan TP PRN BID PRN Aspirin 81 Mg Tab.chew 81 Mg PO DAILY Ibuprofen 400 Mg Tablet 600 Mg PO PRN BID PRN Docusate Sodium 100 Mg Capsule 100 Mg PO BID Fluticasone Propionate Nasal [place] (Fluticasone Propionate) 16 Gm [place].susp 2 [place] NS DAILY Multivitamins (Multivitamin) 1 Each Tablet 1 Tab PO DAILY Trazodone Hcl 50 Mg Tablet 25 Mg PO DAILYWSUP Ascorbic Acid 500 Mg Tablet 500 Mg PO DAILY I have reviewed the current psychotropics carefully including drug interactions. Risk benefit ratio favors no change other than as noted in my dictated progress note. Diagnosis: Problems: (1) Personality disorder in adult (2) Impulse control disorder (3) Lewy body dementia with behavioral disturbance (4) Anxiety disorder SAY PRUETT MD Apr 09, 2018 18:40
[2018-04-09 19:18] VITALS: BP 112/61
[2018-04-09 20:18] LABS: VANC TR 16.7 mcg/mL (10.0-20.0)
[2018-04-09] MEDS: PRAMIPEXOLE 0.5 MG TABLET. PO SCH (20:53)
[2018-04-09] MEDS: DIVALPROEX ER 500 MG TAB.ER.24H PO SCH (20:53)
[2018-04-09] MEDS: MELATONIN 3 MG TABLET PO SCH (20:54)
[2018-04-09] MEDS: QUEtiapine 25 MG TABLET. PO SCH (20:54)
[2018-04-09] MEDS: CARBIDOPA/LEVODOPA CR 50/200MG TABLET.SA PO SCH (20:54)
[2018-04-09] MEDS: diazePAM 2 MG TABLET PO PRN (20:54)
[2018-04-09 22:10] VITALS: BP 127/91
[2018-04-10] MEDS: ACETAMINOPHEN 325 MG TABLET PO PRN (00:33)
--- NOTE | 2018-04-10 02:06 | NUR ---
NURSING: Pt continually exhibiting attention seeking behaviors. Pt repeatedly placing call light on and demanding staff provide assistance in moving his arms and legs, repositioning in the bed, and moving items on his tray table. Pt is capable of doing these things himself, but becomes agitated when instructed to do so. Pt awake much of the noc. Given PRN zydis for increased irritability with minimal effectiveness. Pt currently sitting up in cardiac chair for c/o back aching from laying in bed. Tab alarm in place.
[2018-04-10] MEDS: VANCOMYCIN 1.5 GM in IV NORMAL SALINE 500ML 500 ML IV SCH ×3 (03:34→20:43)
[2018-04-10 05:45] VITALS: BP 135/85
[2018-04-10] MEDS: FERROUS SULFATE 325 MG TABLET. PO SCH (05:58)
[2018-04-10] MEDS: CARBIDOPA/LEVODOPA 25/100MG TABLET PO SCH ×9 (05:58→22:29)
[2018-04-10] MEDS: PIPERACILLIN/TAZOBACTAM 3.375 GM in IV NORMAL SALINE 50ML 50 ML IV SCH ×3 (05:58→17:44)
[2018-04-10] MEDS: CITALOPRAM 20 MG TABLET. PO SCH (08:18)
[2018-04-10] MEDS: DOCUSATE SODIUM 100 MG CAPSULE PO SCH ×2 (08:18→21:27)
[2018-04-10] MEDS: LACTOBACILLUS RHAMNOSUS GG 1 CAPSULE. PO SCH ×2 (08:18→21:27)
[2018-04-10] MEDS: metFORMIN XR 500 MG TAB.ER.24H PO SCH (08:18)
[2018-04-10] MEDS: PRAVASTATIN 20 MG TABLET. PO SCH (08:19)
[2018-04-10] MEDS: LACTULOSE 20 GM/30 ML SOLUTION. PO SCH (08:19)
[2018-04-10] MEDS: ASCORBIC ACID 500 MG TABLET PO SCH (08:19)
[2018-04-10] MEDS: MEMANTINE 5 MG TABLET. PO SCH ×2 (08:19→16:50)
[2018-04-10] MEDS: MULTIVITAMIN with MINERAL TABLET. PO SCH (08:19)
[2018-04-10] MEDS: MAGNESIUM OXIDE 400 MG TABLET PO SCH ×2 (08:20→21:26)
[2018-04-10] MEDS: ASPIRIN 81 MG TAB.CHEW PO SCH (08:20)
[2018-04-10] MEDS: RIVASTIGMINE 4.6MG PATCH. TD SCH (08:21)
[2018-04-10] MEDS: LINACLOTIDE 145 MCG CAPSULE. PO SCH (08:21)
[2018-04-10] MEDS: NYSTATIN TOPICAL POWDER 15GM BOTTLE. TP SCH ×2 (08:22→21:27)
[2018-04-10] MEDS: FLUTICASONE 50MCG/NASAL SPRAY 16GM BOTTLE. NS SCH (08:36)
[2018-04-10 10:16] VITALS: BP 106/65
[2018-04-10 15:23] VITALS: BP 153/84
--- NOTE | 2018-04-10 15:30 | PDOC ---
Progress Note. Subjective: Patient is sitting up in a chair today watching television. He feels as if his arm hasn't improved much since yesterday although it continues to look better from my perspective and nursing reports. He's begun to complain about some mild discomfort associated with an ingrown toenail on the left hallux and reports he is treating it with something from his shaving kit. He is observed to be using his right arm fully and without obvious pain or restriction. His vital signs continued to be stable. Blood cultures are reported to be no growth 1 day, Gram stain of the wound reveals no pathogens or white blood cells and the wound culture itself remains pending. He is eating well and denies any bowel changes with the antibiotics. Objective: Vital Signs: Vital Signs Date Time Temp Pulse Resp B/P (MAP) Pulse Ox O2 Delivery O2 Flow Rate FiO2 04/10/18 15:23 98.2 64 20 153/84 (107) 96 Room Air I & O: Intake and Output 04/10/18 07:00 Intake Total 980 ml Output Total 1400 ml Balance -420 ml Intake Oral 400 ml IV Total 580 ml Output Urine Total 1400 ml # Bowel Movements 1 Labs: Laboratory Tests Test 04/09/18 05:59 04/09/18 19:52 White Blood Count 8.0 x10^3/uL (4.0-11.0) Red Blood Count 3.72 x10^6/uL (4.30-5.70) Hemoglobin 11.4 g/dL (13.0-17.5) Hematocrit 33.8 % (39.0-53.0) Mean Corpuscular Volume 91 fL (79-100) Mean Corpuscular Hemoglobin 31 pg (25-35) Mean Corpuscular Hemoglobin Concent 34 g/dL (31-37) Red Cell Distribution Width 13.6 % (11.5-14.5) Platelet Count 159 x10^3/uL (140-400) Neutrophils (%) (Auto) 66 % (31-73) Lymphocytes (%) (Auto) 16 % (24-48) Monocytes (%) (Auto) 16 % (0-9) Eosinophils (%) (Auto) 1 % (0-3) Basophils (%) (Auto) 1 % (0-3) Neutrophils # (Auto) 5.3 x10^3uL (1.8-7.7) Lymphocytes # (Auto) 1.3 x10^3/uL (1.0-4.8) Monocytes # (Auto) 1.3 x10^3/uL (0.0-1.1) Eosinophils # (Auto) 0.1 x10^3/uL (0.0-0.7) Basophils # (Auto) 0.0 x10^3/uL (0.0-0.2) Sodium Level 137 mmol/L (136-145) Potassium Level 3.9 mmol/L (3.5-5.1) Chloride Level 103 mmol/L (98-107) Carbon Dioxide Level 32 mmol/L (21-32) Anion Gap 2 (6-14) Blood Urea Nitrogen 18 mg/dL (8-26) Creatinine 0.9 mg/dL (0.7-1.3) Estimated GFR (Cockcroft-Gault) 84.4 BUN/Creatinine Ratio 20 (6-20) Glucose Level 104 mg/dL (70-99) Calcium Level 8.0 mg/dL (8.5-10.1) Total Bilirubin 0.8 mg/dL (0.2-1.0) Aspartate Amino Transf (AST/SGOT) 11 U/L (15-37) Alanine Aminotransferase (ALT/SGPT) 8 U/L (16-63) Alkaline Phosphatase 54 U/L (46-116) Total Protein 5.5 g/dL (6.4-8.2) Albumin 2.3 g/dL (3.4-5.0) Albumin/Globulin Ratio 0.7 (1.0-1.7) Vancomycin Level Trough 16.7 mcg/mL (10.0-20.0) Vancomycin Last Dose Date 04/09/18 Vancomycin Last Dose Time 1200 Physical Exam: Gen.: Alert, pleasant, no apparent distress HEENT: Normocephalic atraumatic, no scleral icterus, oral mucosa pink and moist Neck: Supple, no lymphadenopathy, nontender Cardiovascular: Normal S1 and S2 no murmurs Pulmonary: Lungs are clear bilaterally with good air movement no respiratory distress Abdomen: Soft nontender non-distended, bowel sounds present no masses Extremities: Erythema and swelling associated with the right olecranon wound infection continues to improve although not as significantly overnight as was observed yesterday. The extremity continues to be neurovascularly intact, right hallux with sterile dressing from treatment for ingrown nail, there is mild redness associated with the medial aspect of the nail on the left hallux no induration swelling or discharge. Neuro: Alert and articulate, cranial nerves II through XII grossly intact, no lateralizing neuro deficits Assessment: Wound infection with cellulitis Febrile illness History of Lewy body dementia and Parkinson's disease Severe protein calorie malnutrition Continue wound care and intravenous antibiotics. Change to by mouth meds when able based upon culture and sensitivities. Dr. Martins input is appreciated, anticipate discharge to [facility] when able to plant changer to by mouth antibiotics. CHRIS GREWAL DO Apr 10, 2018 15:30
[2018-04-10] MEDS: traZODone 50 MG TABLET. PO SCH ×2 (16:50→21:27)
[2018-04-10 19:35] VITALS: BP 185/93
[2018-04-10] MEDS: CARBIDOPA/LEVODOPA CR 50/200MG TABLET.SA PO SCH (21:26)
[2018-04-10] MEDS: QUEtiapine 25 MG TABLET. PO SCH (21:26)
[2018-04-10] MEDS: PRAMIPEXOLE 0.5 MG TABLET. PO SCH (21:27)
[2018-04-10] MEDS: MELATONIN 3 MG TABLET PO SCH (21:27)
[2018-04-10] MEDS: DIVALPROEX ER 500 MG TAB.ER.24H PO SCH (21:27)
--- NOTE | 2018-04-10 21:59 | PN ---
DATE: 04/09/2018 PSYCHIATRIC PROGRESS NOTE This note covers elements not covered in my initial note 04/09/2018. SUBJECTIVE: The patient was seen individually on the evening of 04/09/2018. Discussed with nursing staff, reviewed the chart. Briefly, the patient is a 67-year-old male who was transferred to [address] [place] [address] from the [facility] on account of developing cellulitis. While on the unit, he has continued to have marked mood lability, inappropriate sexual comments to nursing staff and I have been asked to consult to follow him from a psychiatric standpoint. I met with the patient individually. MENTAL STATUS EXAM: The patient readily recognized me. He was blaming the staff for various things and this seems to be a patent him even when he was on the [facility]. Continues to have times when he is hyperverbal. No active suicidal or homicidal ideation. He has not been dropping himself to the floor. He is reasonably oriented to place and situation. Attention span short. Language function intact. LABORATORY DATA: Reviewed. IMPRESSION: Bipolar 1 disorder, mixed; anxiety disorder, unspecified; major neurocognitive disorder, early Lewy body with delusions. RECOMMENDATIONS: From a psychiatric standpoint and reviewed his current psychotropics and would not recommend any changes as noted in my initial note. It is okay to use Zyprexa p.r.n. for his inappropriate behaviors. Rest will remain unchanged for now. MAN Rosa PRUETT MD DR: MARCEL/nano JOB#: [id number] / [id number]
[2018-04-10 23:09] VITALS: BP 147/92
[2018-04-11] MEDS: PIPERACILLIN/TAZOBACTAM 3.375 GM in IV NORMAL SALINE 50ML 50 ML IV SCH ×5 (00:28→23:55)
[2018-04-11] MEDS: diazePAM 2 MG TABLET PO PRN ×2 (01:39→21:39)
--- NOTE | 2018-04-11 01:55 | NUR ---
Nursing note: PT continues attention-seeking behavior. PT pulled out IV. New IV placed. PT with anxiety throughout shift. Zydis given with minimal effectiveness. PT given Valium this shift for maintained increased anxiety.
[2018-04-11] MEDS: VANCOMYCIN 1.5 GM in IV NORMAL SALINE 500ML 500 ML IV SCH ×3 (04:05→20:29)
[2018-04-11] MEDS: FERROUS SULFATE 325 MG TABLET. PO SCH (06:05)
[2018-04-11] MEDS: CARBIDOPA/LEVODOPA 25/100MG TABLET PO SCH ×9 (06:05→22:57)
[2018-04-11 06:08] VITALS: BP 175/44
[2018-04-11] MEDS: metFORMIN XR 500 MG TAB.ER.24H PO SCH (08:00)
[2018-04-11] MEDS: LINACLOTIDE 145 MCG CAPSULE. PO SCH (09:02)
[2018-04-11] MEDS: LACTULOSE 20 GM/30 ML SOLUTION. PO SCH (09:02)
[2018-04-11] MEDS: LACTOBACILLUS RHAMNOSUS GG 1 CAPSULE. PO SCH ×2 (09:02→20:57)
[2018-04-11] MEDS: RIVASTIGMINE 4.6MG PATCH. TD SCH (09:02)
[2018-04-11 09:03] LABS: BASO % 1 % (0-3); EOS # 0.3 x10^3/uL (0.0-0.7); EOS % 4 % (0-3); HEMOGLOBIN 12.4 g/dL (13.0-17.5); LYMPH % 15 % (24-48); MEAN CORPUSCULAR HEMOGLOBIN 31 pg (25-35); MEAN CORPUSCULAR HGB CONC 33 g/dL (31-37); MEAN CORPUSCULAR VOLUME 92 fL (79-100); MONO # 0.8 x10^3/uL (0.0-1.1); MONO % 12 % (0-9); NEUT # 4.3 x10^3uL (1.8-7.7); NEUT % 68 % (31-73); PLATELET COUNT 205 x10^3/uL (140-400); RED BLOOD COUNT 4.04 x10^6/uL (4.30-5.70); RED CELL DISTRIBUTION WIDTH 13.8 % (11.5-14.5); WHITE BLOOD COUNT 6.4 x10^3/uL (4.0-11.0)
[2018-04-11] MEDS: CITALOPRAM 20 MG TABLET. PO SCH (09:03)
[2018-04-11] MEDS: PRAVASTATIN 20 MG TABLET. PO SCH (09:03)
[2018-04-11] MEDS: MAGNESIUM OXIDE 400 MG TABLET PO SCH ×2 (09:03→20:56)
[2018-04-11] MEDS: ASCORBIC ACID 500 MG TABLET PO SCH (09:03)
[2018-04-11] MEDS: MULTIVITAMIN with MINERAL TABLET. PO SCH (09:04)
[2018-04-11] MEDS: MEMANTINE 5 MG TABLET. PO SCH ×2 (09:04→17:19)
[2018-04-11] MEDS: ASPIRIN 81 MG TAB.CHEW PO SCH (09:04)
[2018-04-11] MEDS: DOCUSATE SODIUM 100 MG CAPSULE PO SCH ×2 (09:04→20:57)
[2018-04-11] MEDS: FLUTICASONE 50MCG/NASAL SPRAY 16GM BOTTLE. NS SCH (09:04)
[2018-04-11] MEDS: NYSTATIN TOPICAL POWDER 15GM BOTTLE. TP SCH ×2 (09:05→20:56)
[2018-04-11 09:15] LABS: ALBUMIN 2.8 g/dL (3.4-5.0); ALBUMIN/GLOBULIN RATIO 0.7 (1.0-1.7); CALCIUM 9.1 mg/dL (8.5-10.1); CREATININE 0.9 mg/dL (0.7-1.3); GFR 84.4; POTASSIUM 4.6 mmol/L (3.5-5.1); TOTAL BILIRUBIN 0.5 mg/dL (0.2-1.0); TOTAL PROTEIN 6.6 g/dL (6.4-8.2)
[2018-04-11 10:41] VITALS: BP 162/99
[2018-04-11] MEDS: traZODone 50 MG TABLET. PO SCH ×2 (17:19→20:57)
--- NOTE | 2018-04-11 17:43 | PDOC ---
Exam Note: Сергей Note: Please also refer to the separate dictated note~for this date of service dictated separately.~Patient seen individually. Discussed the patient with Nursing staff reviewed the chart.~Reviewed interim history and current functioning. Reviewed vital signs,~Labs/ Radiology~and current medications noted below. Continue current treatment with the changes noted in the dictated addendum note Assessment: Vital Signs: Vital Signs Date Time Temp Pulse Resp B/P (MAP) Pulse Ox O2 Delivery O2 Flow Rate FiO2 04/11/18 10:41 97.8 55 18 162/99 (120) 93 Room Air I&O Intake and Output 04/11/18 07:00 Intake Total 2480 ml Output Total 1700 ml Balance 780 ml Intake Oral 1880 ml IV Total 600 ml Output Urine Total 1700 ml # Voids 7 # Bowel Movements 1 Labs: Laboratory Tests Test 04/11/18 08:50 White Blood Count 6.4 x10^3/uL (4.0-11.0) Red Blood Count 4.04 x10^6/uL (4.30-5.70) L Hemoglobin 12.4 g/dL (13.0-17.5) L Hematocrit 37.0 % (39.0-53.0) L Mean Corpuscular Volume 92 fL (79-100) Mean Corpuscular Hemoglobin 31 pg (25-35) Mean Corpuscular Hemoglobin Concent 33 g/dL (31-37) Red Cell Distribution Width 13.8 % (11.5-14.5) Platelet Count 205 x10^3/uL (140-400) Neutrophils (%) (Auto) 68 % (31-73) Lymphocytes (%) (Auto) 15 % (24-48) L Monocytes (%) (Auto) 12 % (0-9) H Eosinophils (%) (Auto) 4 % (0-3) H Basophils (%) (Auto) 1 % (0-3) Neutrophils # (Auto) 4.3 x10^3uL (1.8-7.7) Lymphocytes # (Auto) 1.0 x10^3/uL (1.0-4.8) Monocytes # (Auto) 0.8 x10^3/uL (0.0-1.1) Eosinophils # (Auto) 0.3 x10^3/uL (0.0-0.7) Basophils # (Auto) 0.0 x10^3/uL (0.0-0.2) Sodium Level 140 mmol/L (136-145) Potassium Level 4.6 mmol/L (3.5-5.1) Chloride Level 102 mmol/L (98-107) Carbon Dioxide Level 35 mmol/L (21-32) H Anion Gap 3 (6-14) L Blood Urea Nitrogen 9 mg/dL (8-26) Creatinine 0.9 mg/dL (0.7-1.3) Estimated GFR (Cockcroft-Gault) 84.4 BUN/Creatinine Ratio 10 (6-20) Glucose Level 91 mg/dL (70-99) Calcium Level 9.1 mg/dL (8.5-10.1) Total Bilirubin 0.5 mg/dL (0.2-1.0) Aspartate Amino Transferase (AST) 16 U/L (15-37) Alanine Aminotransferase (ALT) 15 U/L (16-63) L Alkaline Phosphatase 64 U/L (46-116) Total Protein 6.6 g/dL (6.4-8.2) Albumin 2.8 g/dL (3.4-5.0) L Albumin/Globulin Ratio 0.7 (1.0-1.7) L Current Medications: Meds: Current Medications Vancomycin HCl (Vanco Per Pharmacy) 1 each PRN DAILY PRN MC SEE COMMENTS Last administered on 04/08/18at 21:29; Start 04/08/18 at 18:45 Piperacillin Sod/ Tazobactam Sod (Zosyn Per Pharmacy) 1 each PRN DAILY PRN MC SEE COMMENTS Last administered on 04/08/18at 21:26; Start 04/08/18 at 18:45 Piperacillin Sod/ Tazobactam Sod 3.375 gm/Sodium Chloride 50 ml @ 100 mls/hr Q6HRS IV Last administered on 04/11/18 17:19; Start 04/09/18 at 00:00 Vancomycin HCl 2 gm/Sodium Chloride 500 ml @ 250 mls/hr 1X ONCE IV Last administered on 04/08/18 20:26; Start 04/08/18 at 20:00; Stop 04/08/18 at 21 :59; Status DC Vancomycin HCl 1.5 gm/Sodium Chloride 500 ml @ 250 mls/hr Q8H IV Last administered on 04/11/18at 13:39; Start 04/09/18 at 04:00 Vancomycin HCl (Vancomycin Trough Level) 1 each 1X ONCE MC Last administered on 04/09/18at 19:30; Start 04/09/18 at 19:30; Stop 04/09/18 at 19:31; Status DC Acetaminophen (Tylenol) 650 mg PRN Q6HRS PRN PO PAIN / TEMP Last administered on 04/10/18at 00:33; Start 04/08/18 at 20:15 Ascorbic Acid (Vitamin C) 500 mg DAILY PO Last administered on 04/11/18at 09:03 ; Start 04/09/18 at 09:00 Carbidopa/Levodopa (Sinemet ) 0.5 tab Q2HR W/A PO Last administered on 04/11/18at 15:57; Start 04/08/18 at 22:00 Vitamin D (Vitamin D3) 50,000 unit WEEKLY PO ; Start 04/12/18 at 09:00 Diclofenac Sodium (Voltaren) 1 juan PRN TID PRN TP MUSCLE PAIN; Start 04/08/18 at 20:15 Ferrous Sulfate (Feosol) 650 mg DAILY06 PO Last administered on 04/11/18at 06: 05; Start 04/09/18 at 06:00 Ibuprofen (Motrin) 600 mg PRN BID PRN PO PAIN; Start 04/08/18 at 20:45 Linaclotide (Linzess) 145 mcg DAILY PO Last administered on 04/11/18at 09:02; Start 04/09/18 at 09:00 Al Hydroxide/Mg Hydroxide (Mylanta Plus Xs) 15 ml PRN AFTMEALHC PRN PO DYSPEPSIA; Start 04/08/18 at 20:15 Multi-Ingredient Ointment (Analgesic [place]) 1 juan PRN QID PRN TP MUSCLE PAIN; Start 04/08/18 at 20:15 Nystatin (Nystop) 1 juan BID TP Last administered on 04/11/18at 09:05; Start at 21:00 Olanzapine (ZyPREXA ZYDIS) 5 mg PRN Q2HR PRN PO ANXIETY / AGITATION Last administered on 04/10/18at 22:59; Start 04/08/18 at 20:15 Aspirin (Children'S Aspirin) 81 mg DAILYWBKFT PO Last administered on 09:04; Start 04/09/18 at 08:00 Carbidopa/Levodopa (Sinemet Cr) 1 tab.sa HS PO Last administered on 04/10/18 21:26; Start 04/08/18 at 21:00 Citalopram Hydrobromide (CeleXA) 40 mg DAILY PO Last administered on 09:03; Start 04/09/18 at 09:00 Diazepam (Valium) 2 mg PRN Q6HRS PRN PO ANXIETY / AGITATION Last administered on 04/11/18 01:39; Start 04/08/18 at 21:00 Divalproex Sodium (Depakote Er) 1,500 mg HS PO Last administered on 04/10/18 21:27; Start 04/08/18 at 21:00 Docusate Sodium (Colace) 100 mg BID PO Last administered on 04/11/18 09:04; Start 04/08/18 at 21:00 Fluticasone Propionate (Flonase) 2 spray DAILY NS Last administered on 09:04; Start 04/09/18 at 09:00 Hydrocortisone (Cortaid) 1 juan PRN BID PRN TP RASH; Start 04/08/18 at 21:00 Lactobacillus Rhamnosus (Culturelle) 1 cap BID PO Last administered on 09:02; Start 04/08/18 at 21:00 Lactulose (Lactulose) 15 gm DAILYWBKFT PO Last administered on 04/11/18 09:02 ; Start 04/09/18 at 08:00 Magnesium Hydroxide (Milk Of Magnesia) 2,400 mg PRN QHS PRN PO CONSTIPATION Last administered on 04/09/18 20:44; Start 04/08/18 at 21:00 Magnesium Oxide (Magnesium Oxide) 400 mg BID PO Last administered on 09:03; Start 04/08/18 at 21:00 Melatonin 3 mg QHS PO Last administered on 04/10/18 21:27; Start 04/08/18 at 21:00 Memantine (Namenda) 5 mg BIDWMEALS PO Last administered on 04/11/18 17:19; Start 04/09/18 at 08:00 Metformin HCl (Glucophage Xr) 1,000 mg DAILYWBKFT PO Last administered on 04/11 08:00; Start 04/09/18 at 08:00 Miconazole Nitrate (Monistat-Derm) 1 juan PRN BID PRN TP RASH; Start 04/08/18 at 21:00 Multivitamins/ Calcium (Thera-M Plus) 1 tab DAILY PO Last administered on 04/11 09:04; Start 04/09/18 at 09:00 Pramipexole Dihydrochloride (miraPEX) 0.5 mg HS PO Last administered on 21:27; Start 04/08/18 at 21:00 Pravastatin Sodium (Pravachol) 40 mg DAILY PO Last administered on 04/11/18 09:03; Start 04/09/18 at 09:00 Quetiapine Fumarate (SEROquel) 25 mg QHS PO Last administered on 04/10/18 21: 26; Start 04/08/18 at 21:15 Rivastigmine (Exelon) 1 patch DAILY TD Last administered on 04/11/18 09:02; Start 04/09/18 at 09:00 Trazodone HCl (Desyrel) 25 mg DAILYWSUP PO Last administered on 04/11/18 17: 19; Start 04/09/18 at 17:00 Trazodone HCl (Desyrel) 75 mg HS PO Last administered on 04/10/18 21:27; Start 04/08/18 at 21:15 Active Scripts Active Reported Mag-Al Plus Xs Suspension (Mag Hydrox/Al Hydrox/Simeth) 30 Ml Oral.susp 15 Ml PO PRN AFTMEALHC PRN Lactulose 10 Gm/15 Ml Solution 15 Gm PO DAILYWBKFT EXELON 4.6mg/24hr (Rivastigmine) 1 Each Patch.td24 1 Patch TP DAILY Seroquel (Quetiapine Fumarate) 25 Mg Tablet 1 Tab PO QHS Zyprexa Zydis (Olanzapine) 5 Mg Tab.rapdis 5 Mg PO PRN Q2HR PRN Analgesic [place] (Methyl Salicylate/Menthol) 28 Gm Oint...g. 1 Juan TP QID PRN Namenda (Memantine Hcl) 10 Mg Tablet 0.5 Tab PO BIDWMEALS Melatonin 3 Mg Tablet 1 Tab PO QHS Culturelle (Lactobacillus Rhamnosus Gg) 1 Each Capsule 1 Each PO BID Celexa (Citalopram Hydrobromide) 40 Mg Tablet 40 Mg PO DAILY Glucophage Xr (Metformin Hcl) 500 Mg Tab.er.24h 2 Tab PO DAILYWBKFT Nystatin 15 Gm Powder 1 Juan TP BID Milk Of Magnesia (Magnesium Hydroxide) 2,400 Mg/10 Ml Oral.susp 2,400 Mg PO HS PRN Voltaren (Diclofenac Sodium) 100 Gm Gel..gram. 1 Juan TP PRN TID PRN FOR NECK PAIN Vitamin D3 (Cholecalciferol (Vitamin D3)) 50,000 Unit Capsule 50,000 Unit PO WEEKLY Tylenol (Acetaminophen) 325 Mg Tablet 2 Tab PO PRN Q6HRS PRN Pravastatin Sodium 40 Mg Tablet 40 Mg PO DAILY Carbidopa-Levo Er 50-200 Tab (Carbidopa/Levodopa) 1 Each Tablet.er 1 Each PO HS Sinemet 25-100 Mg Tablet (Carbidopa/Levodopa) 1 Each Tablet 0.5 Tab PO Q2HR W/A Diazepam 2 Mg Tablet 2 Mg PO PRN Q6HRS PRN Mirapex (Pramipexole Di-Hcl) 0.25 Mg Tablet 0.5 Mg PO HS Linzess (Linaclotide) 145 Mcg Capsule 145 Mcg PO DAILY Trazodone Hcl 50 Mg Tablet 75 Mg PO HS Divalproex Sodium 500 Mg Tablet.dr 1,500 Mg PO HS Hydrocortisone 453.6 Gm Cream..g. 1 Juan TP PRN BID PRN Ferrous Sulfate 325 Mg Tablet 650 Mg PO DAILY06 Magnesium Oxide 400 Mg Tablet 400 Mg PO BID Miconazole Nitrate 45 Gm Cream.appl 1 Juan TP PRN BID PRN Aspirin 81 Mg Tab.chew 81 Mg PO DAILY Ibuprofen 400 Mg Tablet 600 Mg PO PRN BID PRN Docusate Sodium 100 Mg Capsule 100 Mg PO BID Fluticasone Propionate Nasal [place] (Fluticasone Propionate) 16 Gm [place].susp 2 [place] NS DAILY Multivitamins (Multivitamin) 1 Each Tablet 1 Tab PO DAILY Trazodone Hcl 50 Mg Tablet 25 Mg PO DAILYWSUP Ascorbic Acid 500 Mg Tablet 500 Mg PO DAILY I have reviewed the current psychotropics carefully including drug interactions. Risk benefit ratio favors no change other than as noted in my dictated progress note. Diagnosis: Problems: (1) Personality disorder in adult (2) Impulse control disorder (3) Lewy body dementia with behavioral disturbance (4) Anxiety disorder SAY PRUETT MD Apr 11, 2018 17:43
[2018-04-11 19:35] VITALS: BP 153/99
--- NOTE | 2018-04-11 19:48 | PDOC ---
Progress Note. Subjective: Patient states he is feeling significantly better today. He sitting up on the edge of the bed and reports that his left hallux discomfort has resolved as well. He is very eager to get out of the hospital and asks not to be sent back up to the senior behavioral unit as he states the patient's and staff of there are "crazy." Nursing continue to report intermittent aggressive behavior and at times sexual behavior with the patient. His vital signs continued to be stable and wound culture preliminary is staph aureus sensitivities are anticipated by tomorrow. Nursing and the patient report no new issues and at this point were basically in a holding pattern waiting for sensitivities. CBC chemistry this morning are normal Objective: Vital Signs: Vital Signs Date Time Temp Pulse Resp B/P (MAP) Pulse Ox O2 Delivery O2 Flow Rate FiO2 04/11/18 19:46 Room Air 04/11/18 10:41 97.8 55 18 162/99 (120) 93 I & O: Intake and Output 04/11/18 07:00 Intake Total 2480 ml Output Total 1700 ml Balance 780 ml Intake Oral 1880 ml IV Total 600 ml Output Urine Total 1700 ml # Voids 7 # Bowel Movements 1 Labs: Laboratory Tests Test 04/09/18 19:52 04/11/18 08:50 Vancomycin Level Trough 16.7 mcg/mL (10.0-20.0) Vancomycin Last Dose Date 04/09/18 Vancomycin Last Dose Time 1200 White Blood Count 6.4 x10^3/uL (4.0-11.0) Red Blood Count 4.04 x10^6/uL (4.30-5.70) Hemoglobin 12.4 g/dL (13.0-17.5) Hematocrit 37.0 % (39.0-53.0) Mean Corpuscular Volume 92 fL (79-100) Mean Corpuscular Hemoglobin 31 pg (25-35) Mean Corpuscular Hemoglobin Concent 33 g/dL (31-37) Red Cell Distribution Width 13.8 % (11.5-14.5) Platelet Count 205 x10^3/uL (140-400) Neutrophils (%) (Auto) 68 % (31-73) Lymphocytes (%) (Auto) 15 % (24-48) Monocytes (%) (Auto) 12 % (0-9) Eosinophils (%) (Auto) 4 % (0-3) Basophils (%) (Auto) 1 % (0-3) Neutrophils # (Auto) 4.3 x10^3uL (1.8-7.7) Lymphocytes # (Auto) 1.0 x10^3/uL (1.0-4.8) Monocytes # (Auto) 0.8 x10^3/uL (0.0-1.1) Eosinophils # (Auto) 0.3 x10^3/uL (0.0-0.7) Basophils # (Auto) 0.0 x10^3/uL (0.0-0.2) Sodium Level 140 mmol/L (136-145) Potassium Level 4.6 mmol/L (3.5-5.1) Chloride Level 102 mmol/L (98-107) Carbon Dioxide Level 35 mmol/L (21-32) Anion Gap 3 (6-14) Blood Urea Nitrogen 9 mg/dL (8-26) Creatinine 0.9 mg/dL (0.7-1.3) Estimated GFR (Cockcroft-Gault) 84.4 BUN/Creatinine Ratio 10 (6-20) Glucose Level 91 mg/dL (70-99) Calcium Level 9.1 mg/dL (8.5-10.1) Total Bilirubin 0.5 mg/dL (0.2-1.0) Aspartate Amino Transf (AST/SGOT) 16 U/L (15-37) Alanine Aminotransferase (ALT/SGPT) 15 U/L (16-63) Alkaline Phosphatase 64 U/L (46-116) Total Protein 6.6 g/dL (6.4-8.2) Albumin 2.8 g/dL (3.4-5.0) Albumin/Globulin Ratio 0.7 (1.0-1.7) Physical Exam: Gen.: Alert, sitting on the edge of the bed appears anxious in no apparent distress HEENT: Normocephalic atraumatic, PERRLA EOMI, no scleral icterus, oral mucosa pink and moist Neck: Supple, no lymphadenopathy, nontender Cardiovascular: Normal S1 and S2 no murmurs Pulmonary: Lungs are clear bilaterally with good air movement no respiratory distress Abdomen: Soft nontender non-distended, bowel sounds present no masses Extremities: No clubbing, cyanosis, right arm erythema has all but resolved there is minimal residual soft tissue swelling sterile dressing overlying the olecranon Assessment: Staph aureus infection with cellulitis, sensitivities are pending Febrile illness: Remains afebrile History of Lewy body dementia and Parkinson's disease Severe protein calorie malnutrition Continue wound care and intravenous antibiotics. Change to by mouth meds when able based upon sensitivities anticipated tomorrow. Dr. Martins input is appreciated, anticipate discharge to [facility] unit when able to change management manager to by mouth antibiotics. CHRIS GREWAL DO Apr 11, 2018 19:48
[2018-04-11 20:44] VITALS: BP 153/99
[2018-04-11] MEDS: CARBIDOPA/LEVODOPA CR 50/200MG TABLET.SA PO SCH (20:56)
[2018-04-11] MEDS: MELATONIN 3 MG TABLET PO SCH (20:57)
[2018-04-11] MEDS: DIVALPROEX ER 500 MG TAB.ER.24H PO SCH (20:57)
[2018-04-11] MEDS: QUEtiapine 25 MG TABLET. PO SCH (20:57)
[2018-04-11] MEDS: PRAMIPEXOLE 0.5 MG TABLET. PO SCH (20:58)
[2018-04-11 22:30] VITALS: BP 144/94
[2018-04-12] MEDS: VANCOMYCIN 1.5 GM in IV NORMAL SALINE 500ML 500 ML IV SCH ×2 (04:07→12:19)
[2018-04-12] MEDS: diazePAM 2 MG TABLET PO PRN (04:07)
[2018-04-12 05:48] VITALS: BP 148/95
[2018-04-12] MEDS: FERROUS SULFATE 325 MG TABLET. PO SCH (06:44)
[2018-04-12] MEDS: PIPERACILLIN/TAZOBACTAM 3.375 GM in IV NORMAL SALINE 50ML 50 ML IV SCH ×3 (06:46→17:42)
[2018-04-12] MEDS: CARBIDOPA/LEVODOPA 25/100MG TABLET PO SCH ×9 (06:46→22:41)
--- NOTE | 2018-04-12 07:19 | NUR ---
Nursing Note: When this nurse came onto the unit this morning, GENERAL SCIENCE TEACHER reported that the pt was currently on the bedside commode. After checking on him several times, GENERAL SCIENCE TEACHER and manager shift nurse assisted pt back to his bed. Pt had not voided or had a BM. Approx. 5-10 min later, pt put on his call light. When this nurse entered the room, pt was sitting on bedside with brief pulled down and dirty wipes scattered on the floor. On attempting to assist pt with pulling up his briefs, it was noted that the pt had had a BM on his bed. Pt's bed stripped, pt cleaned up, and placed in cardiac chair to await breakfast. Pt stated to this nurse "you did really good with that" and "I want to go to [facility]." Continue to monitor.
[2018-04-12] MEDS: LACTULOSE 20 GM/30 ML SOLUTION. PO SCH (08:00)
[2018-04-12] MEDS ORDERED: CHOLECALCIFEROL (VITAMIN D3) 50,000 UNIT CAPSULE PO SCH (09:00)
[2018-04-12] MEDS: FLUTICASONE 50MCG/NASAL SPRAY 16GM BOTTLE. NS SCH (09:00)
[2018-04-12] MEDS: LINACLOTIDE 145 MCG CAPSULE. PO SCH (09:00)
[2018-04-12] MEDS: NYSTATIN TOPICAL POWDER 15GM BOTTLE. TP SCH ×2 (09:00→20:39)
[2018-04-12] MEDS: MULTIVITAMIN with MINERAL TABLET. PO SCH (09:46)
[2018-04-12] MEDS: ASCORBIC ACID 500 MG TABLET PO SCH (09:47)
[2018-04-12] MEDS: RIVASTIGMINE 4.6MG PATCH. TD SCH (09:47)
[2018-04-12] MEDS: DOCUSATE SODIUM 100 MG CAPSULE PO SCH ×2 (09:47→20:36)
[2018-04-12] MEDS: ASPIRIN 81 MG TAB.CHEW PO SCH (09:48)
[2018-04-12] MEDS: MEMANTINE 5 MG TABLET. PO SCH ×2 (09:49→17:05)
[2018-04-12] MEDS: LACTOBACILLUS RHAMNOSUS GG 1 CAPSULE. PO SCH ×2 (09:49→20:38)
[2018-04-12] MEDS: MAGNESIUM OXIDE 400 MG TABLET PO SCH ×2 (09:49→20:38)
[2018-04-12] MEDS: PRAVASTATIN 20 MG TABLET. PO SCH (09:49)
[2018-04-12] MEDS: CITALOPRAM 20 MG TABLET. PO SCH (09:49)
[2018-04-12] MEDS: metFORMIN XR 500 MG TAB.ER.24H PO SCH (09:49)
--- NOTE | 2018-04-12 10:31 | EKG ---
[address] [address] Test Date: 2018-04-12 Test Time: 10:30:31 Pat Name: QUINTIN KINGSLEY Department: Room: 109 A Gender: M Senior Sharepoint Architect: : [id number] Requested By: CHRIS GREWAL Order Number: [id number] Reading MD: Navid Munoz MD Measurements Intervals [place] Rate: 53 P: CO: QRS: -31 QRSD: 114 T: 20 QT: 438 QTc: 413 Interpretive Statements SINUS BRADYCARDIA ABNORMAL LEFT AXIS DEVIATION LEFT ANTERIOR FASCICULAR BLOCK QRS(T) CONTOUR ABNORMALITY CONSISTENT WITH ANTEROSEPTAL INFARCT PROBABLY OLD ABNORMAL ECG Electronically Signed On 04-15-2018 11:24:30 CDT by Navid Munoz MD
[2018-04-12] MEDS ORDERED: NITROGLYCERIN SUBLINGUAL 0.4 MG BOTTLE OF 25. SL PRN (10:45)
[2018-04-12 16:24] VITALS: BP 142/83
[2018-04-12] MEDS: traZODone 50 MG TABLET. PO SCH ×2 (17:05→20:39)
--- NOTE | 2018-04-12 18:19 | PDOC3 ---
Discharge Summary Brief Hospital Course: Allergies: Allergies Coded Allergies Type Severity Reaction Last Updated Verified No Known Drug Allergies 03/21/18 No Vital Signs: Vital Signs Date Time Temp Pulse Resp B/P (MAP) Pulse Ox O2 Delivery O2 Flow Rate FiO2 04/12/18 16:24 98.3 56 20 142/83 (102) 96 Room Air Lab Results: Laboratory Tests Test 04/11/18 08:50 04/12/18 11:17 04/12/18 15:15 White Blood Count 6.4 x10^3/uL (4.0-11.0) Red Blood Count 4.04 x10^6/uL (4.30-5.70) Hemoglobin 12.4 g/dL (13.0-17.5) Hematocrit 37.0 % (39.0-53.0) Mean Corpuscular Volume 92 fL (79-100) Mean Corpuscular Hemoglobin 31 pg (25-35) Mean Corpuscular Hemoglobin Concent 33 g/dL (31-37) Red Cell Distribution Width 13.8 % (11.5-14.5) Platelet Count 205 x10^3/uL (140-400) Neutrophils (%) (Auto) 68 % (31-73) Lymphocytes (%) (Auto) 15 % (24-48) Monocytes (%) (Auto) 12 % (0-9) Eosinophils (%) (Auto) 4 % (0-3) Basophils (%) (Auto) 1 % (0-3) Neutrophils # (Auto) 4.3 x10^3uL (1.8-7.7) Lymphocytes # (Auto) 1.0 x10^3/uL (1.0-4.8) Monocytes # (Auto) 0.8 x10^3/uL (0.0-1.1) Eosinophils # (Auto) 0.3 x10^3/uL (0.0-0.7) Basophils # (Auto) 0.0 x10^3/uL (0.0-0.2) Sodium Level 140 mmol/L (136-145) Potassium Level 4.6 mmol/L (3.5-5.1) Chloride Level 102 mmol/L (98-107) Carbon Dioxide Level 35 mmol/L (21-32) Anion Gap 3 (6-14) Blood Urea Nitrogen 9 mg/dL (8-26) Creatinine 0.9 mg/dL (0.7-1.3) Estimated GFR (Cockcroft-Gault) 84.4 BUN/Creatinine Ratio 10 (6-20) Glucose Level 91 mg/dL (70-99) Calcium Level 9.1 mg/dL (8.5-10.1) Total Bilirubin 0.5 mg/dL (0.2-1.0) Aspartate Amino Transf (AST/SGOT) 16 U/L (15-37) Alanine Aminotransferase (ALT/SGPT) 15 U/L (16-63) Alkaline Phosphatase 64 U/L (46-116) Total Protein 6.6 g/dL (6.4-8.2) Albumin 2.8 g/dL (3.4-5.0) Albumin/Globulin Ratio 0.7 (1.0-1.7) Troponin I Quantitative < 0.017 ng/mL (0-0.055) < 0.017 ng/mL (0-0.055) PE: Gen.: Alert, pleasant, no apparent distress HEENT: Normocephalic atraumatic, PERRLA EOMI, no scleral icterus, oral mucosa pink and moist Neck: Supple, no lymphadenopathy, nontender Cardiovascular: Normal S1 and S2 no murmurs Pulmonary: Lungs are clear bilaterally with good air movement no respiratory distress Abdomen: Soft nontender non-distended, bowel sounds present no masses Extremities: No clubbing, cyanosis or edema Neuro: Alert and oriented 3, cranial nerves II through XII grossly intact, no lateralizing neuro deficits Skin: Warm, dry Brief Hospital Course: Mr. Kruse is a 67 old [sex] who presented with [ ] Discharge Information: Home Meds: Reported Medications Mag Hydrox/Al Hydrox/Simeth (MAG-AL PLUS XS SUSPENSION) 30 Ml Oral.susp, 15 ML PO PRN AFTMEALHC PRN for DYSPEPSIA, LIQUID 04/08/18 Lactulose (LACTULOSE) 10 Gm/15 Ml Solution, 15 GM PO DAILYWBKFT, MISC 04/08/18 Rivastigmine (EXELON 4.6mg/24hr) 1 Each Patch.td24, 1 PATCH TP DAILY for dementia 04/08/18 Quetiapine Fumarate (SEROQUEL) 25 Mg Tablet, 1 TAB PO QHS for mood 04/08/18 Olanzapine (ZYPREXA ZYDIS) 5 Mg Tab.rapdis, 5 MG PO PRN Q2HR PRN for ANXIETY / AGITATION, TAB 04/08/18 Methyl Salicylate/Menthol (Analgesic [place]) 28 Gm Oint...g., 1 KESHA TP QID PRN for MUSCLE PAIN, MISC 04/08/18 Memantine Hcl (NAMENDA) 10 Mg Tablet, 0.5 TAB PO BIDWMEALS for dementia 04/08/18 Melatonin (MELATONIN) 3 Mg Tablet, 1 TAB PO QHS for insomnia 04/08/18 Lactobacillus Rhamnosus Gg (CULTURELLE) 1 Each Capsule, 1 EACH PO BID for bowel health 04/08/18 Citalopram Hydrobromide (CELEXA) 40 Mg Tablet, 40 MG PO DAILY for depression 04/08/18 Metformin Hcl (GLUCOPHAGE XR) 500 Mg Tab.er.24h, 2 TAB PO DAILYWBKFT for Diabetes 04/08/18 Nystatin (NYSTATIN) 15 Gm Powder, 1 KESHA TP BID for Yeast 04/08/18 Magnesium Hydroxide (MILK OF MAGNESIA) 2,400 Mg/10 Ml Oral.susp, 2400 MG PO HS PRN for CONSTIPATION, LIQUID 04/08/18 Diclofenac Sodium (VOLTAREN) 100 Gm Gel..gram., 1 KESHA TP PRN TID PRN for MUSCLE PAIN FOR NECK PAIN 04/08/18 Cholecalciferol (Vitamin D3) (VITAMIN D3) 50,000 Unit Capsule, 97426 UNIT PO WEEKLY for nutritional support 04/08/18 Acetaminophen (TYLENOL) 325 Mg Tablet, 2 TAB PO PRN Q6HRS PRN for PAIN / TEMP 04/08/18 Pravastatin Sodium (PRAVASTATIN SODIUM) 40 Mg Tablet, 40 MG PO DAILY for HLD 03/21/18 Carbidopa/Levodopa (CARBIDOPA-LEVO ER 50-200 TAB) 1 Each Tablet.er, 1 EACH PO HS for Parkinson's Disease 03/21/18 Carbidopa/Levodopa (SINEMET 25-100 MG TABLET) 1 Each Tablet, 0.5 TAB PO Q2HR W/ A for Parkinson's Disease 03/21/18 Diazepam (DIAZEPAM) 2 Mg Tablet, 2 MG PO PRN Q6HRS PRN for ANXIETY / AGITATION 03/21/18 Pramipexole Di-Hcl (MIRAPEX) 0.25 Mg Tablet, 0.5 MG PO HS for Parkinson's Disease 03/21/18 Linaclotide (LINZESS) 145 Mcg Capsule, 145 MCG PO DAILY for Constipation, CAP 03/21/18 Trazodone Hcl (TRAZODONE HCL) 50 Mg Tablet, 75 MG PO HS for insomnia 03/21/18 Divalproex Sodium (DIVALPROEX SODIUM) 500 Mg Tablet.dr, 1500 MG PO HS for Mood Stabilizer 03/21/18 Hydrocortisone (HYDROCORTISONE) 453.6 Gm Cream..g., 1 KESHA TP PRN BID PRN for RASH 03/21/18 Ferrous Sulfate (FERROUS SULFATE) 325 Mg Tablet, 650 MG PO DAILY06 for Supplement 03/21/18 Magnesium Oxide (MAGNESIUM OXIDE) 400 Mg Tablet, 400 MG PO BID for Supplement 03/21/18 Miconazole Nitrate (MICONAZOLE NITRATE) 45 Gm Cream.appl, 1 KESHA TP PRN BID PRN for RASH, EACH 03/21/18 Aspirin (ASPIRIN) 81 Mg Tab.chew, 81 MG PO DAILY for Prevention 03/21/18 Ibuprofen (IBUPROFEN) 400 Mg Tablet, 600 MG PO PRN BID PRN for PAIN 03/21/18 Docusate Sodium (DOCUSATE SODIUM) 100 Mg Capsule, 100 MG PO BID for constipation 03/21/18 Fluticasone Propionate (FLUTICASONE PROPIONATE NASAL SPRAY) 16 Gm [place].susp, 2 SPRAY NS DAILY for Allergies, EACH 03/21/18 Multivitamin (MULTIVITAMINS) 1 Each Tablet, 1 TAB PO DAILY for Supplement 03/21/18 Trazodone Hcl (TRAZODONE HCL) 50 Mg Tablet, 25 MG PO DAILYWSUP for Agitation 03/21/18 Ascorbic Acid (ASCORBIC ACID) 500 Mg Tablet, 500 MG PO DAILY for Supplement 03/21/18 Discontinued Reported Medications Cephalexin (KEFLEX) 500 Mg Capsule, 500 MG PO QID for Bacterial Infection for 10 Days 03/21/18 Carbidopa/Levodopa (SINEMET 25-100 MG TABLET) 1 Each Tablet, 0.5 TAB PO PRN BID PRN for Tremors, #270 TAB 3 Refills 03/21/18 Inulin/Chromium Picolinate (Fiber Gummies) 1 Each Tab.chew, 2 EA PO TIDWMEALS for Supplement, TAB.CHEW 03/21/18 Testosterone Cypionate (TESTOSTERONE CYPIONATE) 100 Mg/1 Ml Vial, 150 MG IM Q10 Days for Hormonal Replacement, EACH 03/21/18 Escitalopram Oxalate (ESCITALOPRAM OXALATE) 20 Mg Tablet, 20 MG PO DAILY for ANTI-DEPRESSANT, #30 TAB 0 Refills 03/21/18 Trazodone Hcl (TRAZODONE HCL) 50 Mg Tablet, 25 MG PO PRN DAILY PRN for AGITATION , TAB 03/21/18 CHRIS GREWAL DO Apr 12, 2018 18:19
--- NOTE | 2018-04-12 18:43 | PDOC ---
Exam Note: Сергей Note: Please also refer to the separate dictated note~for this date of service dictated separately.~Patient seen individually. Discussed the patient with Nursing staff reviewed the chart.~Reviewed interim history and current functioning. Reviewed vital signs,~Labs/ Radiology~and current medications noted below. Continue current treatment with the changes noted in the dictated addendum note Assessment: Vital Signs: Vital Signs Date Time Temp Pulse Resp B/P (MAP) Pulse Ox O2 Delivery O2 Flow Rate FiO2 04/12/18 16:24 98.3 56 20 142/83 (102) 96 Room Air I&O Intake and Output 04/12/18 07:00 Intake Total 1600 ml Output Total 2850 ml Balance -1250 ml Intake Oral 1050 ml IV Total 550 ml Output Urine Total 2850 ml # Voids 2 # Bowel Movements 1 Labs: Laboratory Tests Test 04/12/18 11:17 04/12/18 15:15 Troponin I Quantitative < 0.017 ng/mL (0-0.055) < 0.017 ng/mL (0-0.055) Current Medications: Meds: Current Medications Vancomycin HCl (Vanco Per Pharmacy) 1 each PRN DAILY PRN MC SEE COMMENTS Last administered on 04/08/18at 21:29; Start 04/08/18 at 18:45 Piperacillin Sod/ Tazobactam Sod (Zosyn Per Pharmacy) 1 each PRN DAILY PRN MC SEE COMMENTS Last administered on 04/08/18at 21:26; Start 04/08/18 at 18:45 Piperacillin Sod/ Tazobactam Sod 3.375 gm/Sodium Chloride 50 ml @ 100 mls/hr Q6HRS IV Last administered on 04/12/18at 17:42; Start 04/09/18 at 00:00; Stop 04/12/18 at 18:17; Status DC Vancomycin HCl 2 gm/Sodium Chloride 500 ml @ 250 mls/hr 1X ONCE IV Last administered on 04/08/18at 20:26; Start 04/08/18 at 20:00; Stop 04/08/18 at 21 :59; Status DC Vancomycin HCl 1.5 gm/Sodium Chloride 500 ml @ 250 mls/hr Q8H IV Last administered on 04/12/18at 12:19; Start 04/09/18 at 04:00; Stop 04/12/18 at 18 :17; Status DC Vancomycin HCl (Vancomycin Trough Level) 1 each 1X ONCE MC Last administered on 04/09/18 19:30; Start 04/09/18 at 19:30; Stop 04/09/18 at 19:31; Status DC Acetaminophen (Tylenol) 650 mg PRN Q6HRS PRN PO PAIN / TEMP Last administered on 04/10/18at 00:33; Start 04/08/18 at 20:15 Ascorbic Acid (Vitamin C) 500 mg DAILY PO Last administered on 04/12/18at 09:47 ; Start 04/09/18 at 09:00 Carbidopa/Levodopa (Sinemet /) 0.5 tab Q2HR W/A PO Last administered on 04/12/18 17:07; Start 04/08/18 at 22:00 Vitamin D (Vitamin D3) 50,000 unit WEEKLY PO Last administered on 04/12/18 09 :47; Start 04/12/18 at 09:00 Diclofenac Sodium (Voltaren) 1 juan PRN TID PRN TP MUSCLE PAIN; Start 04/08/18 at 20:15 Ferrous Sulfate (Feosol) 650 mg DAILY06 PO Last administered on 04/12/18at 06: 44; Start 04/09/18 at 06:00 Ibuprofen (Motrin) 600 mg PRN BID PRN PO PAIN; Start 04/08/18 at 20:45 Linaclotide (Linzess) 145 mcg DAILY PO Last administered on 04/11/18 09:02; Start 04/09/18 at 09:00 Al Hydroxide/Mg Hydroxide (Mylanta Plus Xs) 15 ml PRN AFTMEALHC PRN PO DYSPEPSIA; Start 04/08/18 at 20:15 Multi-Ingredient Ointment (Analgesic [place]) 1 juan PRN QID PRN TP MUSCLE PAIN; Start 04/08/18 at 20:15 Nystatin (Nystop) 1 juan BID TP Last administered on 04/11/18at 20:56; Start at 21:00 Olanzapine (ZyPREXA ZYDIS) 5 mg PRN Q2HR PRN PO ANXIETY / AGITATION Last administered on 04/12/18 03:02; Start 04/08/18 at 20:15 Aspirin (Children'S Aspirin) 81 mg DAILYWBKFT PO Last administered on 09:48; Start 04/09/18 at 08:00 Carbidopa/Levodopa (Sinemet Cr) 1 tab.sa HS PO Last administered on 04/11/18 20:56; Start 04/08/18 at 21:00 Citalopram Hydrobromide (CeleXA) 40 mg DAILY PO Last administered on 09:49; Start 04/09/18 at 09:00 Diazepam (Valium) 2 mg PRN Q6HRS PRN PO ANXIETY / AGITATION Last administered on 04/12/18 04:07; Start 04/08/18 at 21:00 Divalproex Sodium (Depakote Er) 1,500 mg HS PO Last administered on 04/11/18 20:57; Start 04/08/18 at 21:00 Docusate Sodium (Colace) 100 mg BID PO Last administered on 04/12/18 09:47; Start 04/08/18 at 21:00 Fluticasone Propionate (Flonase) 2 spray DAILY NS Last administered on 09:04; Start 04/09/18 at 09:00 Hydrocortisone (Cortaid) 1 juan PRN BID PRN TP RASH; Start 04/08/18 at 21:00 Lactobacillus Rhamnosus (Culturelle) 1 cap BID PO Last administered on 09:49; Start 04/08/18 at 21:00 Lactulose (Lactulose) 15 gm DAILYWBKFT PO Last administered on 04/11/18 09:02 ; Start 04/09/18 at 08:00 Magnesium Hydroxide (Milk Of Magnesia) 2,400 mg PRN QHS PRN PO CONSTIPATION Last administered on 04/09/18 20:44; Start 04/08/18 at 21:00 Magnesium Oxide (Magnesium Oxide) 400 mg BID PO Last administered on 09:49; Start 04/08/18 at 21:00 Melatonin 3 mg QHS PO Last administered on 04/11/18 20:57; Start 04/08/18 at 21:00 Memantine (Namenda) 5 mg BIDWMEALS PO Last administered on 04/12/18 17:05; Start 04/09/18 at 08:00 Metformin HCl (Glucophage Xr) 1,000 mg DAILYWBKFT PO Last administered on 04/12 09:49; Start 04/09/18 at 08:00 Miconazole Nitrate (Monistat-Derm) 1 juan PRN BID PRN TP RASH; Start 04/08/18 at 21:00 Multivitamins/ Calcium (Thera-M Plus) 1 tab DAILY PO Last administered on 04/12 09:46; Start 04/09/18 at 09:00 Pramipexole Dihydrochloride (miraPEX) 0.5 mg HS PO Last administered on 20:58; Start 04/08/18 at 21:00 Pravastatin Sodium (Pravachol) 40 mg DAILY PO Last administered on 04/12/18 09:49; Start 04/09/18 at 09:00 Quetiapine Fumarate (SEROquel) 25 mg QHS PO Last administered on 04/11/18 20: 57; Start 04/08/18 at 21:15 Rivastigmine (Exelon) 1 patch DAILY TD Last administered on 04/12/18 09:47; Start 04/09/18 at 09:00 Trazodone HCl (Desyrel) 25 mg DAILYWSUP PO Last administered on 04/12/18 17: 05; Start 04/09/18 at 17:00 Trazodone HCl (Desyrel) 75 mg HS PO Last administered on 04/11/18 20:57; Start 04/08/18 at 21:15 Nitroglycerin (Nitrostat) 0.4 mg PRN Q5MIN PRN SL CHEST PAIN Last administered on 04/12/18at 11:29; Start 04/12/18 at 10:45 Doxycycline Hyclate (Vibra-Tab) 100 mg BID PO ; Start 04/12/18 at 21:00; Stop 04/26/18 at 20:59 Active Scripts Active Reported Mag-Al Plus Xs Suspension (Mag Hydrox/Al Hydrox/Simeth) 30 Ml Oral.susp 15 Ml PO PRN AFTMEALHC PRN Lactulose 10 Gm/15 Ml Solution 15 Gm PO DAILYWBKFT EXELON 4.6mg/24hr (Rivastigmine) 1 Each Patch.td24 1 Patch TP DAILY Seroquel (Quetiapine Fumarate) 25 Mg Tablet 1 Tab PO QHS Zyprexa Zydis (Olanzapine) 5 Mg Tab.rapdis 5 Mg PO PRN Q2HR PRN Analgesic [place] (Methyl Salicylate/Menthol) 28 Gm Oint...g. 1 Juan TP QID PRN Namenda (Memantine Hcl) 10 Mg Tablet 0.5 Tab PO BIDWMEALS Melatonin 3 Mg Tablet 1 Tab PO QHS Culturelle (Lactobacillus Rhamnosus Gg) 1 Each Capsule 1 Each PO BID Celexa (Citalopram Hydrobromide) 40 Mg Tablet 40 Mg PO DAILY Glucophage Xr (Metformin Hcl) 500 Mg Tab.er.24h 2 Tab PO DAILYWBKFT Nystatin 15 Gm Powder 1 Juan TP BID Milk Of Magnesia (Magnesium Hydroxide) 2,400 Mg/10 Ml Oral.susp 2,400 Mg PO HS PRN Voltaren (Diclofenac Sodium) 100 Gm Gel..gram. 1 Juan TP PRN TID PRN FOR NECK PAIN Vitamin D3 (Cholecalciferol (Vitamin D3)) 50,000 Unit Capsule 50,000 Unit PO WEEKLY Tylenol (Acetaminophen) 325 Mg Tablet 2 Tab PO PRN Q6HRS PRN Pravastatin Sodium 40 Mg Tablet 40 Mg PO DAILY Carbidopa-Levo Er 50-200 Tab (Carbidopa/Levodopa) 1 Each Tablet.er 1 Each PO HS Sinemet 25-100 Mg Tablet (Carbidopa/Levodopa) 1 Each Tablet 0.5 Tab PO Q2HR W/A Diazepam 2 Mg Tablet 2 Mg PO PRN Q6HRS PRN Mirapex (Pramipexole Di-Hcl) 0.25 Mg Tablet 0.5 Mg PO HS Linzess (Linaclotide) 145 Mcg Capsule 145 Mcg PO DAILY Trazodone Hcl 50 Mg Tablet 75 Mg PO HS Divalproex Sodium 500 Mg Tablet.dr 1,500 Mg PO HS Hydrocortisone 453.6 Gm Cream..g. 1 Juan TP PRN BID PRN Ferrous Sulfate 325 Mg Tablet 650 Mg PO DAILY06 Magnesium Oxide 400 Mg Tablet 400 Mg PO BID Miconazole Nitrate 45 Gm Cream.appl 1 Juan TP PRN BID PRN Aspirin 81 Mg Tab.chew 81 Mg PO DAILY Ibuprofen 400 Mg Tablet 600 Mg PO PRN BID PRN Docusate Sodium 100 Mg Capsule 100 Mg PO BID Fluticasone Propionate Nasal [place] (Fluticasone Propionate) 16 Gm [place].susp 2 [place] NS DAILY Multivitamins (Multivitamin) 1 Each Tablet 1 Tab PO DAILY Trazodone Hcl 50 Mg Tablet 25 Mg PO DAILYWSUP Ascorbic Acid 500 Mg Tablet 500 Mg PO DAILY I have reviewed the current psychotropics carefully including drug interactions. Risk benefit ratio favors no change other than as noted in my dictated progress note. Diagnosis: Problems: (1) Personality disorder in adult (2) Impulse control disorder (3) Lewy body dementia with behavioral disturbance (4) Anxiety disorder SAY PRUETT MD Apr 12, 2018 18:43
[2018-04-12 20:27] VITALS: BP 138/81
[2018-04-12] MEDS: QUEtiapine 25 MG TABLET. PO SCH (20:38)
[2018-04-12] MEDS: DIVALPROEX ER 500 MG TAB.ER.24H PO SCH (20:38)
[2018-04-12] MEDS: PRAMIPEXOLE 0.5 MG TABLET. PO SCH (20:38)
[2018-04-12] MEDS: MELATONIN 3 MG TABLET PO SCH (20:38)
[2018-04-12] MEDS: CARBIDOPA/LEVODOPA CR 50/200MG TABLET.SA PO SCH (20:38)
[2018-04-12] MEDS ORDERED: DOXYCYCLINE HYCLATE 100 MG TABLET PO SCH (21:00)
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
--- NOTE | 2018-04-12 22:05 | PN ---
DATE: 04/10/2018 PSYCHIATRIC PROGRESS NOTE This late entry 04/10/2018 covers elements not covered in my initial note. SUBJECTIVE: I met with the patient in the evening. Discussed with nursing staff. Overall, the patient has been somewhat anxious, restless, repetitive with his request for nursing staff, intrusive. At times, he makes inappropriate sexual comments, but does redirect. REVIEW OF SYSTEMS: Ambulation impaired. No CV, , pulmonary, eye system symptoms on review. MENTAL STATUS EXAM: He is reasonably oriented, quite intense in his presentation, but typical for him. Speech is coherent at times, somewhat pressured. Minimizes his problems. No suicidal or homicidal ideation. LABORATORY DATA: Reviewed. IMPRESSION: Bipolar 1 disorder, unspecified, possibly dementia, early Lewy body with delusions, anxiety disorder, unspecified. PLAN: From a psychiatric standpoint, would not recommend any change for now. May consider further changes depending on his progress. MAN Rosa PRUETT MD DR: MARCEL/nano JOB#: [id number] / [id number]
--- NOTE | 2018-04-12 22:08 | PN ---
DATE: 04/11/2018 PSYCHIATRIC PROGRESS NOTE This late entry 04/11/2018 covers elements not covered in my initial note. SUBJECTIVE: Per nursing report, the patient has been somewhat anxious, restless, intrusive, but again redirects. At times, he makes sexually inappropriate comments, but redirects again. REVIEW OF SYSTEMS: Ambulation impaired. No CV, , pulmonary, eye system symptoms on review. MENTAL STATUS EXAM: The patient is oriented to himself, situation, readily recognized me. Speech is coherent, somewhat intense. Abstraction fair, computation impaired, language function intact. Attention span short. He does have some short-term memory deficits. No suicidal or homicidal ideation. LABORATORY DATA: Reviewed. IMPRESSION: Unchanged from initial note. PLAN: No change from initial note. MAN Rosa PRUETT MD DR: MARCEL/nano JOB#: [id number] / [id number]
[2018-04-12] MEDS ORDERED: DOXY100T9 PO (23:27)
--- NOTE | 2018-04-12 23:47 | NUR ---
Pt is discharged to [facility]. Pt's belongings given back to patient. Pt being escorted by staff via w/c.
--- NOTE | 2018-04-14 12:27 | PN ---
DATE: 04/12/2018 PSYCHIATRIC PROGRESS NOTE This late entry date of service 04/12/2018 covers elements, not covered in my initial note. SUBJECTIVE: I met with the patient on . He continues to be somewhat labile in his mood, anxious at times, making vague suicidal statements. Medically, he appears to have stabilized and we have been consulted to request a reevaluation to transfer [facility] back to the [facility]. REVIEW OF SYSTEMS: Ambulation impaired. No CV, , pulmonary, eye system symptoms on review. MENTAL STATUS EXAM: Oriented to himself and situation. Speech is coherent, somewhat pressured as I have met with him in his room. Abstraction fair. Computation, able to do one step serial 7's because he is quite distractible. No active homicidal ideation. He does have vague suicidal ideation with no plans, intent or attempt. He is not entirely agreeable to getting back to the [facility], but limited insight into his mood symptoms, suicidal statements, requiring this transition back and I addressed this with him. LABORATORY DATA: Reviewed. IMPRESSION: Unchanged from initial note. PLAN: No change from initial note. We will plan to transfer him back to the [facility] later the evening of 04/12/2018. At the time of this dictation, I had called and talked with Chaka, RN on the unit given the patient's vague statements of suicide. We will keep him close to the nursing station and keep a close watch on him as well while we adjust his psychotropics. SAY PRUETT MD DR: MARCEL/nano JOB#: [id number] / [id number]
== END 2018-04-12 23:55 | DRG 602 ==
LOC: 1 SOUTH 17:00
PROVIDERS: ADMIT Neuromusculoskeletal Medicine & OMM; ATTEND Neuromusculoskeletal Medicine & OMM
DX: L03.113 Cellulitis of right upper limb (principal); E43 Unspecified severe protein-calorie malnutrition; F01.51 Vascular dementia, unspecified severity, with behavioral disturbance; F02.81 Dementia in other diseases classified elsewhere, unspecified severity, with behavioral disturbance; F31.60 Bipolar disorder, current episode mixed, unspecified; E11.9 Type 2 diabetes mellitus without complications; E78.5 Hyperlipidemia, unspecified; F41.9 Anxiety disorder, unspecified; F60.9 Personality disorder, unspecified; F63.9 Impulse disorder, unspecified; G31.83 Neurocognitive disorder with Lewy bodies; G47.33 Obstructive sleep apnea (adult) (pediatric); L60.0 Ingrowing nail; G47.00 Insomnia, unspecified; Z79.899 Other long term (current) drug therapy
CPT/HCPCS: 36415; 80053; 80202; 84484; 85025; 87040; 87070; 87186; 93005; J2543; J3370; J7040; 97110; 97116; 97530

== ENCOUNTER 2018-04-13 00:15 | Inpatient (IN) | payer MEDICARE ==
[~2018-04-13] VITALS: Ht 190.5 cm; Wt 135.2 kg
[~2018-04-13 00:15] MED LIST changes: +DOXY100T9 PO; +LACT10SO26 PO; +MAG30ORA2 PO
[2018-04-13] MEDS ORDERED: METHYL SALICYLATE/MENTHOL TOPICAL OINTMENT 29GM TUBE. TP PRN (00:30)
[2018-04-13] MEDS ORDERED: MAGNESIUM HYDROXIDE 2,400 MG/30 ML ORAL.SUSP. PO PRN (00:30)
[2018-04-13] MEDS ORDERED: MAG HYDROX/AL HYDROX/SIMETH 30 ML ORAL.SUSP PO PRN (00:30)
[2018-04-13 01:08] VITALS: BP 138/90
[2018-04-13] MEDS ORDERED: MICONAZOLE NITRATE 2% TOPICAL CREAM 28GM TUBE. TP PRN (02:00)
[2018-04-13] MEDS ORDERED: DICLOFENAC SODIUM 1% TOPICAL GEL 100GM TUBE. TP PRN (02:00)
[2018-04-13] MEDS ORDERED: HYDROCORTISONE 1% TOPICAL OINTMENT 30GM TUBE. TP PRN (02:00)
[2018-04-13] MEDS: FERROUS SULFATE 325 MG TABLET. PO SCH (05:36)
[2018-04-13] MEDS: CARBIDOPA/LEVODOPA 25/100MG TABLET PO SCH ×9 (05:36→22:40)
[2018-04-13 06:12] VITALS: BP 120/65
[2018-04-13 08:13] LABS: VAL ACID 60 mcg/mL (50-100)
[2018-04-13] MEDS: CHOLECALCIFEROL (VITAMIN D3) 50,000 UNIT CAPSULE PO SCH (08:44)
[2018-04-13] MEDS: MAGNESIUM OXIDE 400 MG TABLET PO SCH ×2 (08:44→20:50)
[2018-04-13] MEDS: metFORMIN XR 500 MG TAB.ER.24H PO SCH (08:45)
[2018-04-13] MEDS: CITALOPRAM 20 MG TABLET. PO SCH (08:45)
[2018-04-13] MEDS: DOXYCYCLINE HYCLATE 100 MG TABLET PO SCH ×2 (08:45→20:50)
[2018-04-13] MEDS: PRAVASTATIN 20 MG TABLET. PO SCH (08:45)
[2018-04-13] MEDS: MULTIVITAMIN with MINERAL TABLET. PO SCH (08:45)
[2018-04-13] MEDS: ASCORBIC ACID 500 MG TABLET PO SCH (08:45)
[2018-04-13] MEDS: LACTOBACILLUS RHAMNOSUS GG 1 CAPSULE. PO SCH ×2 (08:45→20:50)
[2018-04-13] MEDS: ASPIRIN 81 MG TAB.CHEW PO SCH (08:46)
[2018-04-13] MEDS: MEMANTINE 10 MG TABLET. PO SCH ×2 (08:46→16:46)
[2018-04-13] MEDS: DOCUSATE SODIUM 100 MG CAPSULE PO SCH ×2 (08:46→20:50)
[2018-04-13] MEDS: RIVASTIGMINE 4.6MG PATCH. TD SCH (08:47)
[2018-04-13] MEDS: NYSTATIN TOPICAL POWDER 15GM BOTTLE. TP SCH ×2 (08:47→20:55)
[2018-04-13] MEDS: LACTULOSE 20 GM/30 ML SOLUTION. PO SCH (08:50)
[2018-04-13] MEDS: FLUTICASONE 50MCG/NASAL SPRAY 16GM BOTTLE. NS SCH (09:00)
[2018-04-13] MEDS: LINACLOTIDE 145 MCG CAPSULE. PO SCH (13:05)
[2018-04-13 16:38] VITALS: BP 153/88
[2018-04-13] MEDS: traZODone 50 MG TABLET. PO SCH ×2 (16:46→20:54)
[2018-04-13] MEDS: MELATONIN 3 MG TABLET PO SCH (20:53)
[2018-04-13] MEDS: PRAMIPEXOLE 0.25 MG TABLET. PO SCH (20:53)
[2018-04-13] MEDS: DIVALPROEX SODIUM 250 MG TABLET.DR. PO SCH (20:53)
[2018-04-13] MEDS: CARBIDOPA/LEVODOPA CR 50/200MG TABLET.SA PO SCH (20:53)
[2018-04-13] MEDS: QUEtiapine 25 MG TABLET. PO SCH (20:53)
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
[2018-04-13] MEDS: diazePAM 2 MG TABLET PO PRN (22:40)
--- NOTE | 2018-04-13 22:58 | PDOC ---
Exam Note: Сергей Note: Please also refer to the separate dictated note~for this date of service dictated separately.~Patient seen individually. Discussed the patient with Nursing staff reviewed the chart.~Reviewed interim history and current functioning. Reviewed vital signs,~Labs/ Radiology~and current medications noted below. Continue current treatment with the changes noted in the dictated addendum note Assessment: Vital Signs: Vital Signs Date Time Temp Pulse Resp B/P (MAP) Pulse Ox O2 Delivery O2 Flow Rate FiO2 04/13/18 16:38 98.5 66 22 153/88 (109) 96 Room Air Labs: Laboratory Tests Test 04/13/18 07:22 Valproic Acid Level 60 mcg/mL (50-100) Valproic Acid Last Dose Date 04/12/18 Valproic Acid Last Dose Time 2100 Current Medications: Meds: Current Medications Acetaminophen (Tylenol) 650 mg PRN Q6HRS PRN PO PAIN / TEMP; Start 04/13/18 at 00:30 Multi-Ingredient Ointment (Analgesic Ignacio) 1 juan PRN QID PRN TP MUSCLE PAIN; Start 04/13/18 at 00:30 Al Hydroxide/Mg Hydroxide (Mylanta Plus Xs) 15 ml PRN AFTMEALHC PRN PO DYSPEPSIA; Start 04/13/18 at 00:30 Magnesium Hydroxide (Milk Of Magnesia) 2,400 mg PRN QHS PRN PO CONSTIPATION; Start 04/13/18 at 00:30 Olanzapine (ZyPREXA ZYDIS) 5 mg PRN Q2HR PRN PO ANXIETY / AGITATION; Start at 02:00 Citalopram Hydrobromide (CeleXA) 40 mg DAILY PO Last administered on at 08:45; Start 04/13/18 at 09:00 Diazepam (Valium) 2 mg PRN Q6HRS PRN PO ANXIETY Last administered on at 22:40; Start 04/13/18 at 02:00 Divalproex Sodium (Depakote) 1,500 mg HS PO Last administered on 04/13/18at 20: 53; Start 04/13/18 at 21:00 Melatonin 3 mg HS PO Last administered on 04/13/18at 20:53; Start 04/13/18 at 21:00 Memantine (Namenda) 5 mg BIDWMEALS PO Last administered on 04/13/18 16:46; Start 04/13/18 at 08:00 Quetiapine Fumarate (SEROquel) 25 mg QHS PO Last administered on 04/13/18 20: 53; Start 04/13/18 at 21:00 Rivastigmine (Exelon) 1 patch DAILY TD Last administered on 04/13/18 08:47; Start 04/13/18 at 09:00 Trazodone HCl (Desyrel) 25 mg DAILYWSUP PO Last administered on 04/13/18 16: 46; Start 04/13/18 at 17:00 Trazodone HCl (Desyrel) 75 mg QHS PO Last administered on 04/13/18 20:54; Start 04/13/18 at 21:00 Ascorbic Acid (Vitamin C) 500 mg DAILY PO Last administered on 04/13/18 08:45 ; Start 04/13/18 at 09:00 Carbidopa/Levodopa (Sinemet 25/100) 0.5 tab Q2HR W/A PO Last administered on 04/13/18 22:40; Start 04/13/18 at 06:00 Vitamin D (Vitamin D3) 50,000 unit WEEKLY PO Last administered on 04/13/18 08 :44; Start 04/13/18 at 09:00 Diclofenac Sodium (Voltaren) 1 juan PRN TID PRN TP MUSCLE PAIN; Start 04/13/18 at 02:00 Ferrous Sulfate (Feosol) 650 mg DAILY06 PO Last administered on 04/13/18 05: 36; Start 04/13/18 at 06:00 Ibuprofen (Motrin) 600 mg PRN BID PRN PO PAIN; Start 04/13/18 at 02:00 Linaclotide (Linzess) 145 mcg DAILY PO Last administered on 04/13/18at 13:05; Start 04/13/18 at 09:00 Nystatin (Nystop) 1 juan BID TP Last administered on 04/13/18 08:47; Start at 09:00 Aspirin (Children'S Aspirin) 81 mg DAILY PO Last administered on 04/13/18 08: 46; Start 04/13/18 at 09:00 Carbidopa/Levodopa (Sinemet Cr) 1 tab.sa HS PO Last administered on 04/13/18 20:53; Start 04/13/18 at 21:00 Docusate Sodium (Colace) 100 mg BID PO Last administered on 04/13/18 20:50; Start 04/13/18 at 09:00 Doxycycline Hyclate (Vibra-Tab) 100 mg BID PO Last administered on 04/13/18 20:50; Start 04/13/18 at 09:00 Fluticasone Propionate (Flonase) 2 spray DAILY NS Last administered on at 09:00; Start 04/13/18 at 09:00 Hydrocortisone (Cortaid) 1 juan PRN BID PRN TP RASH; Start 04/13/18 at 02:00 Lactobacillus Rhamnosus (Culturelle) 1 cap BID PO Last administered on 20:50; Start 04/13/18 at 09:00 Lactulose (Lactulose) 15 gm DAILYWBKFT PO Last administered on 04/13/18 08:50 ; Start 04/13/18 at 08:00 Magnesium Oxide (Magnesium Oxide) 400 mg BID PO Last administered on 20:50; Start 04/13/18 at 09:00 Metformin HCl (Glucophage Xr) 1,000 mg DAILYWBKFT PO Last administered on 04/13 08:45; Start 04/13/18 at 08:00 Miconazole Nitrate (Monistat-Derm) 1 jaun PRN BID PRN TP RASH; Start 04/13/18 at 02:00 Multivitamins/ Calcium (Thera-M Plus) 1 tab DAILY PO Last administered on 04/13 08:45; Start 04/13/18 at 09:00 Pramipexole Dihydrochloride (miraPEX) 0.5 mg HS PO Last administered on 20:53; Start 04/13/18 at 21:00 Pravastatin Sodium (Pravachol) 40 mg DAILY PO Last administered on 04/13/18at 08:45; Start 04/13/18 at 09:00 Active Scripts Active Reported Doxycycline Hyclate 100 Mg Tablet.dr 100 Mg PO BID Mag-Al Plus Xs Suspension (Mag Hydrox/Al Hydrox/Simeth) 30 Ml Oral.susp 15 Ml PO PRN AFTMEALHC PRN Lactulose 10 Gm/15 Ml Solution 15 Gm PO DAILYWBKFT EXELON 4.6mg/24hr (Rivastigmine) 1 Each Patch.td24 1 Patch TP DAILY Seroquel (Quetiapine Fumarate) 25 Mg Tablet 1 Tab PO QHS Zyprexa Zydis (Olanzapine) 5 Mg Tab.rapdis 5 Mg PO PRN Q2HR PRN Analgesic Ignacio (Methyl Salicylate/Menthol) 28 Gm Oint...g. 1 Juan TP QID PRN Namenda (Memantine Hcl) 10 Mg Tablet 0.5 Tab PO BIDWMEALS Melatonin 3 Mg Tablet 1 Tab PO QHS Culturelle (Lactobacillus Rhamnosus Gg) 1 Each Capsule 1 Each PO BID Celexa (Citalopram Hydrobromide) 40 Mg Tablet 40 Mg PO DAILY Glucophage Xr (Metformin Hcl) 500 Mg Tab.er.24h 2 Tab PO DAILYWBKFT Nystatin 15 Gm Powder 1 Juan TP BID Milk Of Magnesia (Magnesium Hydroxide) 2,400 Mg/10 Ml Oral.susp 2,400 Mg PO HS PRN Voltaren (Diclofenac Sodium) 100 Gm Gel..gram. 1 Juan TP PRN TID PRN FOR NECK PAIN Vitamin D3 (Cholecalciferol (Vitamin D3)) 50,000 Unit Capsule 50,000 Unit PO WEEKLY Tylenol (Acetaminophen) 325 Mg Tablet 2 Tab PO PRN Q6HRS PRN Pravastatin Sodium 40 Mg Tablet 40 Mg PO DAILY Carbidopa-Levo Er 50-200 Tab (Carbidopa/Levodopa) 1 Each Tablet.er 1 Each PO HS Sinemet 25-100 Mg Tablet (Carbidopa/Levodopa) 1 Each Tablet 0.5 Tab PO Q2HR W/A Diazepam 2 Mg Tablet 2 Mg PO PRN Q6HRS PRN Mirapex (Pramipexole Di-Hcl) 0.25 Mg Tablet 0.5 Mg PO HS Linzess (Linaclotide) 145 Mcg Capsule 145 Mcg PO DAILY Trazodone Hcl 50 Mg Tablet 75 Mg PO HS Divalproex Sodium 500 Mg Tablet.dr 1,500 Mg PO HS Hydrocortisone 453.6 Gm Cream..g. 1 Juan TP PRN BID PRN Ferrous Sulfate 325 Mg Tablet 650 Mg PO DAILY06 Magnesium Oxide 400 Mg Tablet 400 Mg PO BID Miconazole Nitrate 45 Gm Cream.appl 1 Juan TP PRN BID PRN Aspirin 81 Mg Tab.chew 81 Mg PO DAILY Ibuprofen 400 Mg Tablet 600 Mg PO PRN BID PRN Docusate Sodium 100 Mg Capsule 100 Mg PO BID Fluticasone Propionate Nasal [place] (Fluticasone Propionate) 16 Gm [place].susp 2 [place] NS DAILY Multivitamins (Multivitamin) 1 Each Tablet 1 Tab PO DAILY Trazodone Hcl 50 Mg Tablet 25 Mg PO DAILYWSUP Ascorbic Acid 500 Mg Tablet 500 Mg PO DAILY I have reviewed the current psychotropics carefully including drug interactions. Risk benefit ratio favors no change other than as noted in my dictated progress note. Diagnosis: Problems: (1) Anxiety disorder (2) Lewy body dementia with behavioral disturbance (3) Impulse control disorder (4) Personality disorder in adult SAY PRUETT MD Apr 13, 2018 22:58
[2018-04-14 06:03] VITALS: BP 136/81
[2018-04-14] MEDS: CARBIDOPA/LEVODOPA 25/100MG TABLET PO SCH ×9 (06:28→22:00)
[2018-04-14] MEDS: FERROUS SULFATE 325 MG TABLET. PO SCH (06:28)
[2018-04-14] MEDS: LINACLOTIDE 145 MCG CAPSULE. PO SCH (07:46)
[2018-04-14] MEDS: DOXYCYCLINE HYCLATE 100 MG TABLET PO SCH ×2 (07:47→20:48)
[2018-04-14] MEDS: PRAVASTATIN 20 MG TABLET. PO SCH (07:47)
[2018-04-14] MEDS: ASCORBIC ACID 500 MG TABLET PO SCH (07:47)
[2018-04-14] MEDS: MEMANTINE 10 MG TABLET. PO SCH ×2 (07:48→17:19)
[2018-04-14] MEDS: MULTIVITAMIN with MINERAL TABLET. PO SCH (07:49)
[2018-04-14] MEDS: CITALOPRAM 20 MG TABLET. PO SCH (07:49)
[2018-04-14] MEDS: DOCUSATE SODIUM 100 MG CAPSULE PO SCH ×2 (07:50→20:49)
[2018-04-14] MEDS: metFORMIN XR 500 MG TAB.ER.24H PO SCH (07:50)
[2018-04-14] MEDS: LACTOBACILLUS RHAMNOSUS GG 1 CAPSULE. PO SCH ×2 (07:50→20:49)
[2018-04-14] MEDS: RIVASTIGMINE 4.6MG PATCH. TD SCH (07:51)
[2018-04-14] MEDS: LACTULOSE 20 GM/30 ML SOLUTION. PO SCH (07:51)
[2018-04-14] MEDS: MAGNESIUM OXIDE 400 MG TABLET PO SCH ×2 (07:51→20:48)
[2018-04-14] MEDS: ASPIRIN 81 MG TAB.CHEW PO SCH (07:51)
[2018-04-14] MEDS: NYSTATIN TOPICAL POWDER 15GM BOTTLE. TP SCH ×2 (07:54→20:51)
[2018-04-14] MEDS: FLUTICASONE 50MCG/NASAL SPRAY 16GM BOTTLE. NS SCH (07:54)
[2018-04-14 08:28] LABS: BASO # 0.1 x10^3/uL (0.0-0.2); BASO % 1 % (0-3); EOS # 0.4 x10^3/uL (0.0-0.7); EOS % 5 % (0-3); HEMATOCRIT 35.5 % (39.0-53.0); HEMOGLOBIN 12.2 g/dL (13.0-17.5); LYMPH # 1.3 x10^3/uL (1.0-4.8); LYMPH % 17 % (24-48); MEAN CORPUSCULAR HEMOGLOBIN 31 pg (25-35); MEAN CORPUSCULAR HGB CONC 34 g/dL (31-37); MEAN CORPUSCULAR VOLUME 91 fL (79-100); MONO # 0.9 x10^3/uL (0.0-1.1); MONO % 12 % (0-9); NEUT # 4.9 x10^3uL (1.8-7.7); NEUT % 65 % (31-73); PLATELET COUNT 248 x10^3/uL (140-400); RED BLOOD COUNT 3.89 x10^6/uL (4.30-5.70); RED CELL DISTRIBUTION WIDTH 13.7 % (11.5-14.5); WHITE BLOOD COUNT 7.5 x10^3/uL (4.0-11.0)
[2018-04-14 08:35] LABS: ALBUMIN 2.8 g/dL (3.4-5.0); ALBUMIN/GLOBULIN RATIO 0.8 (1.0-1.7); CALCIUM 9.1 mg/dL (8.5-10.1); CREATININE 0.9 mg/dL (0.7-1.3); GFR 84.4; TOTAL BILIRUBIN 0.4 mg/dL (0.2-1.0); TOTAL PROTEIN 6.5 g/dL (6.4-8.2)
[2018-04-14 16:31] VITALS: BP 130/82
[2018-04-14] MEDS: traZODone 50 MG TABLET. PO SCH ×2 (17:20→20:50)
[2018-04-14] MEDS: QUEtiapine 25 MG TABLET. PO SCH (20:48)
[2018-04-14] MEDS: MELATONIN 3 MG TABLET PO SCH (20:49)
[2018-04-14] MEDS: CARBIDOPA/LEVODOPA CR 50/200MG TABLET.SA PO SCH (20:49)
[2018-04-14] MEDS: PRAMIPEXOLE 0.25 MG TABLET. PO SCH (20:50)
[2018-04-14] MEDS: DIVALPROEX SODIUM 250 MG TABLET.DR. PO SCH (20:51)
--- NOTE | 2018-04-14 23:06 | PDOC ---
Exam Note: Сергей Note: Please also refer to the separate dictated note~for this date of service dictated separately.~Patient seen individually. Discussed the patient with Nursing staff reviewed the chart.~Reviewed interim history and current functioning. Reviewed vital signs,~Labs/ Radiology~and current medications noted below. Continue current treatment with the changes noted in the dictated addendum note Assessment: Vital Signs: Vital Signs Date Time Temp Pulse Resp B/P (MAP) Pulse Ox O2 Delivery O2 Flow Rate FiO2 04/14/18 16:31 98.1 68 19 130/82 (98) 94 Room Air I&O Intake and Output 04/14/18 07:00 Intake Total 1320 ml Balance 1320 ml Intake Oral 1320 ml Labs: Laboratory Tests Test 04/14/18 08:03 White Blood Count 7.5 x10^3/uL (4.0-11.0) Red Blood Count 3.89 x10^6/uL (4.30-5.70) L Hemoglobin 12.2 g/dL (13.0-17.5) L Hematocrit 35.5 % (39.0-53.0) L Mean Corpuscular Volume 91 fL (79-100) Mean Corpuscular Hemoglobin 31 pg (25-35) Mean Corpuscular Hemoglobin Concent 34 g/dL (31-37) Red Cell Distribution Width 13.7 % (11.5-14.5) Platelet Count 248 x10^3/uL (140-400) Neutrophils (%) (Auto) 65 % (31-73) Lymphocytes (%) (Auto) 17 % (24-48) L Monocytes (%) (Auto) 12 % (0-9) H Eosinophils (%) (Auto) 5 % (0-3) H Basophils (%) (Auto) 1 % (0-3) Neutrophils # (Auto) 4.9 x10^3uL (1.8-7.7) Lymphocytes # (Auto) 1.3 x10^3/uL (1.0-4.8) Monocytes # (Auto) 0.9 x10^3/uL (0.0-1.1) Eosinophils # (Auto) 0.4 x10^3/uL (0.0-0.7) Basophils # (Auto) 0.1 x10^3/uL (0.0-0.2) Sodium Level 139 mmol/L (136-145) Potassium Level 4.0 mmol/L (3.5-5.1) Chloride Level 104 mmol/L (98-107) Carbon Dioxide Level 33 mmol/L (21-32) H Anion Gap 2 (6-14) L Blood Urea Nitrogen 11 mg/dL (8-26) Creatinine 0.9 mg/dL (0.7-1.3) Estimated GFR (Cockcroft-Gault) 84.4 BUN/Creatinine Ratio 12 (6-20) Glucose Level 98 mg/dL (70-99) Calcium Level 9.1 mg/dL (8.5-10.1) Total Bilirubin 0.4 mg/dL (0.2-1.0) Aspartate Amino Transferase (AST) 17 U/L (15-37) Alanine Aminotransferase (ALT) 17 U/L (16-63) Alkaline Phosphatase 58 U/L (46-116) Total Protein 6.5 g/dL (6.4-8.2) Albumin 2.8 g/dL (3.4-5.0) L Albumin/Globulin Ratio 0.8 (1.0-1.7) L Current Medications: Meds: Current Medications Acetaminophen (Tylenol) 650 mg PRN Q6HRS PRN PO PAIN / TEMP; Start 04/13/18 at 00:30 Multi-Ingredient Ointment (Analgesic [place]) 1 juan PRN QID PRN TP MUSCLE PAIN; Start 04/13/18 at 00:30 Al Hydroxide/Mg Hydroxide (Mylanta Plus Xs) 15 ml PRN AFTMEALHC PRN PO DYSPEPSIA; Start 04/13/18 at 00:30 Magnesium Hydroxide (Milk Of Magnesia) 2,400 mg PRN QHS PRN PO CONSTIPATION; Start 04/13/18 at 00:30 Olanzapine (ZyPREXA ZYDIS) 5 mg PRN Q2HR PRN PO ANXIETY / AGITATION; Start at 02:00 Citalopram Hydrobromide (CeleXA) 40 mg DAILY PO Last administered on at 07:49; Start 04/13/18 at 09:00 Diazepam (Valium) 2 mg PRN Q6HRS PRN PO ANXIETY Last administered on at 22:40; Start 04/13/18 at 02:00 Divalproex Sodium (Depakote) 1,500 mg HS PO Last administered on 04/14/18 20: 51; Start 04/13/18 at 21:00 Melatonin 3 mg HS PO Last administered on 04/14/18 20:49; Start 04/13/18 at 21:00 Memantine (Namenda) 5 mg BIDWMEALS PO Last administered on 04/14/18 17:19; Start 04/13/18 at 08:00 Quetiapine Fumarate (SEROquel) 25 mg QHS PO Last administered on 04/14/18 20: 48; Start 04/13/18 at 21:00 Rivastigmine (Exelon) 1 patch DAILY TD Last administered on 04/14/18 07:51; Start 04/13/18 at 09:00 Trazodone HCl (Desyrel) 25 mg DAILYWSUP PO Last administered on 04/14/18 17: 20; Start 04/13/18 at 17:00 Trazodone HCl (Desyrel) 75 mg QHS PO Last administered on 04/14/18 20:50; Start 04/13/18 at 21:00 Ascorbic Acid (Vitamin C) 500 mg DAILY PO Last administered on 04/14/18 07:47 ; Start 04/13/18 at 09:00 Carbidopa/Levodopa (Sinemet 25/100) 0.5 tab Q2HR W/A PO Last administered on 04/14/18 17:22; Start 04/13/18 at 06:00 Vitamin D (Vitamin D3) 50,000 unit WEEKLY PO Last administered on 04/13/18at 08 :44; Start 04/13/18 at 09:00 Diclofenac Sodium (Voltaren) 1 juan PRN TID PRN TP MUSCLE PAIN; Start 04/13/18 at 02:00 Ferrous Sulfate (Feosol) 650 mg DAILY06 PO Last administered on 04/14/18 06: 28; Start 04/13/18 at 06:00 Ibuprofen (Motrin) 600 mg PRN BID PRN PO PAIN; Start 04/13/18 at 02:00 Linaclotide (Linzess) 145 mcg DAILY PO Last administered on 04/14/18 07:46; Start 04/13/18 at 09:00 Nystatin (Nystop) 1 juan BID TP Last administered on 04/14/18 20:51; Start at 09:00 Aspirin (Children'S Aspirin) 81 mg DAILY PO Last administered on 04/14/18 07: 51; Start 04/13/18 at 09:00 Carbidopa/Levodopa (Sinemet Cr) 1 tab.sa HS PO Last administered on 04/14/18 20:49; Start 04/13/18 at 21:00 Docusate Sodium (Colace) 100 mg BID PO Last administered on 04/14/18 20:49; Start 04/13/18 at 09:00 Doxycycline Hyclate (Vibra-Tab) 100 mg BID PO Last administered on 04/14/18 20:48; Start 04/13/18 at 09:00 Fluticasone Propionate (Flonase) 2 spray DAILY NS Last administered on 07:54; Start 04/13/18 at 09:00 Hydrocortisone (Cortaid) 1 juan PRN BID PRN TP RASH; Start 04/13/18 at 02:00 Lactobacillus Rhamnosus (Culturelle) 1 cap BID PO Last administered on 20:49; Start 04/13/18 at 09:00 Lactulose (Lactulose) 15 gm DAILYWBKFT PO Last administered on 04/14/18 07:51 ; Start 04/13/18 at 08:00 Magnesium Oxide (Magnesium Oxide) 400 mg BID PO Last administered on 20:48; Start 04/13/18 at 09:00 Metformin HCl (Glucophage Xr) 1,000 mg DAILYWBKFT PO Last administered on 04/14 07:50; Start 04/13/18 at 08:00 Miconazole Nitrate (Monistat-Derm) 1 juan PRN BID PRN TP RASH; Start 04/13/18 at 02:00 Multivitamins/ Calcium (Thera-M Plus) 1 tab DAILY PO Last administered on 04/14 07:49; Start 04/13/18 at 09:00 Pramipexole Dihydrochloride (miraPEX) 0.5 mg HS PO Last administered on 20:50; Start 04/13/18 at 21:00 Pravastatin Sodium (Pravachol) 40 mg DAILY PO Last administered on 04/14/18at 07:47; Start 04/13/18 at 09:00 Active Scripts Active Reported Doxycycline Hyclate 100 Mg Tablet.dr 100 Mg PO BID Mag-Al Plus Xs Suspension (Mag Hydrox/Al Hydrox/Simeth) 30 Ml Oral.susp 15 Ml PO PRN AFTMEALHC PRN Lactulose 10 Gm/15 Ml Solution 15 Gm PO DAILYWBKFT EXELON 4.6mg/24hr (Rivastigmine) 1 Each Patch.td24 1 Patch TP DAILY Seroquel (Quetiapine Fumarate) 25 Mg Tablet 1 Tab PO QHS Zyprexa Zydis (Olanzapine) 5 Mg Tab.rapdis 5 Mg PO PRN Q2HR PRN Analgesic [place] (Methyl Salicylate/Menthol) 28 Gm Oint...g. 1 Juan TP QID PRN Namenda (Memantine Hcl) 10 Mg Tablet 0.5 Tab PO BIDWMEALS Melatonin 3 Mg Tablet 1 Tab PO QHS Culturelle (Lactobacillus Rhamnosus Gg) 1 Each Capsule 1 Each PO BID Celexa (Citalopram Hydrobromide) 40 Mg Tablet 40 Mg PO DAILY Glucophage Xr (Metformin Hcl) 500 Mg Tab.er.24h 2 Tab PO DAILYWBKFT Nystatin 15 Gm Powder 1 Juan TP BID Milk Of Magnesia (Magnesium Hydroxide) 2,400 Mg/10 Ml Oral.susp 2,400 Mg PO HS PRN Voltaren (Diclofenac Sodium) 100 Gm Gel..gram. 1 Juan TP PRN TID PRN FOR NECK PAIN Vitamin D3 (Cholecalciferol (Vitamin D3)) 50,000 Unit Capsule 50,000 Unit PO WEEKLY Tylenol (Acetaminophen) 325 Mg Tablet 2 Tab PO PRN Q6HRS PRN Pravastatin Sodium 40 Mg Tablet 40 Mg PO DAILY Carbidopa-Levo Er 50-200 Tab (Carbidopa/Levodopa) 1 Each Tablet.er 1 Each PO HS Sinemet 25-100 Mg Tablet (Carbidopa/Levodopa) 1 Each Tablet 0.5 Tab PO Q2HR W/A Diazepam 2 Mg Tablet 2 Mg PO PRN Q6HRS PRN Mirapex (Pramipexole Di-Hcl) 0.25 Mg Tablet 0.5 Mg PO HS Linzess (Linaclotide) 145 Mcg Capsule 145 Mcg PO DAILY Trazodone Hcl 50 Mg Tablet 75 Mg PO HS Divalproex Sodium 500 Mg Tablet.dr 1,500 Mg PO HS Hydrocortisone 453.6 Gm Cream..g. 1 Juan TP PRN BID PRN Ferrous Sulfate 325 Mg Tablet 650 Mg PO DAILY06 Magnesium Oxide 400 Mg Tablet 400 Mg PO BID Miconazole Nitrate 45 Gm Cream.appl 1 Juan TP PRN BID PRN Aspirin 81 Mg Tab.chew 81 Mg PO DAILY Ibuprofen 400 Mg Tablet 600 Mg PO PRN BID PRN Docusate Sodium 100 Mg Capsule 100 Mg PO BID Fluticasone Propionate Nasal [place] (Fluticasone Propionate) 16 Gm [place].susp 2 [place] NS DAILY Multivitamins (Multivitamin) 1 Each Tablet 1 Tab PO DAILY Trazodone Hcl 50 Mg Tablet 25 Mg PO DAILYWSUP Ascorbic Acid 500 Mg Tablet 500 Mg PO DAILY I have reviewed the current psychotropics carefully including drug interactions. Risk benefit ratio favors no change other than as noted in my dictated progress note. Diagnosis: Problems: (1) Anxiety disorder (2) Lewy body dementia with behavioral disturbance (3) Impulse control disorder (4) Personality disorder in adult SAY PRUETT MD Apr 14, 2018 23:06
[2018-04-15 06:06] VITALS: BP 124/72
[2018-04-15] MEDS: CARBIDOPA/LEVODOPA 25/100MG TABLET PO SCH ×9 (06:12→22:00)
[2018-04-15] MEDS: FERROUS SULFATE 325 MG TABLET. PO SCH (06:12)
[2018-04-15] MEDS: DOXYCYCLINE HYCLATE 100 MG TABLET PO SCH ×2 (07:33→20:28)
[2018-04-15] MEDS: RIVASTIGMINE 4.6MG PATCH. TD SCH (07:33)
[2018-04-15] MEDS: MEMANTINE 10 MG TABLET. PO SCH ×2 (07:33→17:20)
[2018-04-15] MEDS: CITALOPRAM 20 MG TABLET. PO SCH (07:34)
[2018-04-15] MEDS: MAGNESIUM OXIDE 400 MG TABLET PO SCH ×2 (07:34→20:28)
[2018-04-15] MEDS: MULTIVITAMIN with MINERAL TABLET. PO SCH (07:34)
[2018-04-15] MEDS: LACTOBACILLUS RHAMNOSUS GG 1 CAPSULE. PO SCH ×2 (07:34→20:28)
[2018-04-15] MEDS: PRAVASTATIN 20 MG TABLET. PO SCH (07:34)
[2018-04-15] MEDS: ASCORBIC ACID 500 MG TABLET PO SCH (07:35)
[2018-04-15] MEDS: ASPIRIN 81 MG TAB.CHEW PO SCH (07:35)
[2018-04-15] MEDS: metFORMIN XR 500 MG TAB.ER.24H PO SCH (07:35)
[2018-04-15] MEDS: DOCUSATE SODIUM 100 MG CAPSULE PO SCH ×2 (07:35→20:28)
[2018-04-15] MEDS: NYSTATIN TOPICAL POWDER 15GM BOTTLE. TP SCH ×2 (07:37→20:30)
[2018-04-15] MEDS: FLUTICASONE 50MCG/NASAL SPRAY 16GM BOTTLE. NS SCH (07:37)
[2018-04-15] MEDS: LACTULOSE 20 GM/30 ML SOLUTION. PO SCH (07:37)
[2018-04-15] MEDS: LINACLOTIDE 145 MCG CAPSULE. PO SCH (07:39)
[2018-04-15 15:38] VITALS: BP 147/82
[2018-04-15] MEDS: traZODone 50 MG TABLET. PO SCH ×2 (17:20→20:29)
[2018-04-15] MEDS: MELATONIN 3 MG TABLET PO SCH (20:28)
[2018-04-15] MEDS: QUEtiapine 25 MG TABLET. PO SCH (20:28)
[2018-04-15] MEDS: CARBIDOPA/LEVODOPA CR 50/200MG TABLET.SA PO SCH (20:28)
[2018-04-15] MEDS: DIVALPROEX SODIUM 250 MG TABLET.DR. PO SCH (20:29)
[2018-04-15] MEDS: PRAMIPEXOLE 0.25 MG TABLET. PO SCH (20:29)
--- NOTE | 2018-04-15 20:48 | PN ---
DATE: 04/14/2018 PSYCHIATRIC PROGRESS NOTE This late entry 04/14/2018 covers elements not covered in my initial note. SUBJECTIVE: I met with the patient at some length in the evening. The patient slept 3-3/4 hours previous evening. Per nursing report, he has had a good day with no suicidal ideation. He has been out in the day room most of the day. When I met with him in the evening, he expressed frustration with some certain staff members. He gets quite impulsive, restless, constantly moving up and down talking about this. Making vague suicidal statements. No intent or plan. REVIEW OF SYSTEMS: Ambulation impaired. Extremely obese. Ambulates in wheelchair. No CV, , pulmonary, eye system symptoms on review. MENTAL STATUS EXAM: Reasonably oriented. Speech is coherent, rapid at times. Abstraction fair, computation impaired, language function intact, attention span short. Mood and affect remain somewhat anxious, labile. He remains on one-on-one status. IMPRESSION: Bipolar 1 disorder, unspecified; anxiety disorder, unspecified; impulse control disorder, probable dementia, early Lewy body with delusions. PLAN: Continue psychotropics from initial note. Maintain one-on-one status. Adjust further as clinically indicated. SAY PRUETT MD DR: MARCEL/nano JOB#: [id number] / [id number]
--- NOTE | 2018-04-15 23:09 | PDOC ---
Exam Note: Сергей Note: Please also refer to the separate dictated note~for this date of service dictated separately.~Patient seen individually. Discussed the patient with Nursing staff reviewed the chart.~Reviewed interim history and current functioning. Reviewed vital signs,~Labs/ Radiology~and current medications noted below. Continue current treatment with the changes noted in the dictated addendum note Assessment: Vital Signs: Vital Signs Date Time Temp Pulse Resp B/P (MAP) Pulse Ox O2 Delivery O2 Flow Rate FiO2 04/15/18 15:38 97.7 69 18 147/82 (103) 97 Room Air I&O Intake and Output 04/15/18 07:00 Intake Total 1560 ml Balance 1560 ml Intake Oral 1560 ml # Bowel Movements 1 Current Medications: Meds: Current Medications Acetaminophen (Tylenol) 650 mg PRN Q6HRS PRN PO PAIN / TEMP; Start 04/13/18 at 00:30 Multi-Ingredient Ointment (Analgesic Jean) 1 juan PRN QID PRN TP MUSCLE PAIN; Start 04/13/18 at 00:30 Al Hydroxide/Mg Hydroxide (Mylanta Plus Xs) 15 ml PRN AFTMEALHC PRN PO DYSPEPSIA; Start 04/13/18 at 00:30 Magnesium Hydroxide (Milk Of Magnesia) 2,400 mg PRN QHS PRN PO CONSTIPATION; Start 04/13/18 at 00:30 Olanzapine (ZyPREXA ZYDIS) 5 mg PRN Q2HR PRN PO ANXIETY / AGITATION; Start at 02:00 Citalopram Hydrobromide (CeleXA) 40 mg DAILY PO Last administered on at 07:34; Start 04/13/18 at 09:00 Diazepam (Valium) 2 mg PRN Q6HRS PRN PO ANXIETY Last administered on at 22:40; Start 04/13/18 at 02:00 Divalproex Sodium (Depakote) 1,500 mg HS PO Last administered on 04/15/18at 20: 29; Start 04/13/18 at 21:00 Melatonin 3 mg HS PO Last administered on 04/15/18at 20:28; Start 04/13/18 at 21:00 Memantine (Namenda) 5 mg BIDWMEALS PO Last administered on 04/15/18at 17:20; Start 04/13/18 at 08:00 Quetiapine Fumarate (SEROquel) 25 mg QHS PO Last administered on 04/15/18 20: 28; Start 04/13/18 at 21:00 Rivastigmine (Exelon) 1 patch DAILY TD Last administered on 04/15/18 07:33; Start 04/13/18 at 09:00 Trazodone HCl (Desyrel) 25 mg DAILYWSUP PO Last administered on 04/15/18 17: 20; Start 04/13/18 at 17:00 Trazodone HCl (Desyrel) 75 mg QHS PO Last administered on 04/15/18 20:29; Start 04/13/18 at 21:00 Ascorbic Acid (Vitamin C) 500 mg DAILY PO Last administered on 04/15/18 07:35 ; Start 04/13/18 at 09:00 Carbidopa/Levodopa (Sinemet 25/100) 0.5 tab Q2HR W/A PO Last administered on 04/15/18 18:10; Start 04/13/18 at 06:00 Vitamin D (Vitamin D3) 50,000 unit WEEKLY PO Last administered on 04/13/18 08 :44; Start 04/13/18 at 09:00 Diclofenac Sodium (Voltaren) 1 juan PRN TID PRN TP MUSCLE PAIN; Start 04/13/18 at 02:00 Ferrous Sulfate (Feosol) 650 mg DAILY06 PO Last administered on 04/15/18 06: 12; Start 04/13/18 at 06:00 Ibuprofen (Motrin) 600 mg PRN BID PRN PO PAIN; Start 04/13/18 at 02:00 Linaclotide (Linzess) 145 mcg DAILY PO Last administered on 04/15/18 07:39; Start 04/13/18 at 09:00 Nystatin (Nystop) 1 juan BID TP Last administered on 04/15/18 20:30; Start at 09:00 Aspirin (Children'S Aspirin) 81 mg DAILY PO Last administered on 04/15/18 07: 35; Start 04/13/18 at 09:00 Carbidopa/Levodopa (Sinemet Cr) 1 tab.sa HS PO Last administered on 04/15/18 20:28; Start 04/13/18 at 21:00 Docusate Sodium (Colace) 100 mg BID PO Last administered on 04/15/18 20:28; Start 04/13/18 at 09:00 Doxycycline Hyclate (Vibra-Tab) 100 mg BID PO Last administered on 04/15/18 20:28; Start 04/13/18 at 09:00 Fluticasone Propionate (Flonase) 2 spray DAILY NS Last administered on 07:37; Start 04/13/18 at 09:00 Hydrocortisone (Cortaid) 1 juan PRN BID PRN TP RASH; Start 04/13/18 at 02:00 Lactobacillus Rhamnosus (Culturelle) 1 cap BID PO Last administered on 20:28; Start 04/13/18 at 09:00 Lactulose (Lactulose) 15 gm DAILYWBKFT PO Last administered on 04/15/18 07:37 ; Start 04/13/18 at 08:00 Magnesium Oxide (Magnesium Oxide) 400 mg BID PO Last administered on 20:28; Start 04/13/18 at 09:00 Metformin HCl (Glucophage Xr) 1,000 mg DAILYWBKFT PO Last administered on 04/15 07:35; Start 04/13/18 at 08:00 Miconazole Nitrate (Monistat-Derm) 1 juan PRN BID PRN TP RASH; Start 04/13/18 at 02:00 Multivitamins/ Calcium (Thera-M Plus) 1 tab DAILY PO Last administered on 04/15 07:34; Start 04/13/18 at 09:00 Pramipexole Dihydrochloride (miraPEX) 0.5 mg HS PO Last administered on 20:29; Start 04/13/18 at 21:00 Pravastatin Sodium (Pravachol) 40 mg DAILY PO Last administered on 04/15/18 07:34; Start 04/13/18 at 09:00 Active Scripts Active Reported Doxycycline Hyclate 100 Mg Tablet.dr 100 Mg PO BID Mag-Al Plus Xs Suspension (Mag Hydrox/Al Hydrox/Simeth) 30 Ml Oral.susp 15 Ml PO PRN AFTMEALHC PRN Lactulose 10 Gm/15 Ml Solution 15 Gm PO DAILYWBKFT EXELON 4.6mg/24hr (Rivastigmine) 1 Each Patch.td24 1 Patch TP DAILY Seroquel (Quetiapine Fumarate) 25 Mg Tablet 1 Tab PO QHS Zyprexa Zydis (Olanzapine) 5 Mg Tab.rapdis 5 Mg PO PRN Q2HR PRN Analgesic Jean (Methyl Salicylate/Menthol) 28 Gm Oint...g. 1 Juan TP QID PRN Namenda (Memantine Hcl) 10 Mg Tablet 0.5 Tab PO BIDWMEALS Melatonin 3 Mg Tablet 1 Tab PO QHS Culturelle (Lactobacillus Rhamnosus Gg) 1 Each Capsule 1 Each PO BID Celexa (Citalopram Hydrobromide) 40 Mg Tablet 40 Mg PO DAILY Glucophage Xr (Metformin Hcl) 500 Mg Tab.er.24h 2 Tab PO DAILYWBKFT Nystatin 15 Gm Powder 1 Juan TP BID Milk Of Magnesia (Magnesium Hydroxide) 2,400 Mg/10 Ml Oral.susp 2,400 Mg PO HS PRN Voltaren (Diclofenac Sodium) 100 Gm Gel..gram. 1 Juan TP PRN TID PRN FOR NECK PAIN Vitamin D3 (Cholecalciferol (Vitamin D3)) 50,000 Unit Capsule 50,000 Unit PO WEEKLY Tylenol (Acetaminophen) 325 Mg Tablet 2 Tab PO PRN Q6HRS PRN Pravastatin Sodium 40 Mg Tablet 40 Mg PO DAILY Carbidopa-Levo Er 50-200 Tab (Carbidopa/Levodopa) 1 Each Tablet.er 1 Each PO HS Sinemet 25-100 Mg Tablet (Carbidopa/Levodopa) 1 Each Tablet 0.5 Tab PO Q2HR W/A Diazepam 2 Mg Tablet 2 Mg PO PRN Q6HRS PRN Mirapex (Pramipexole Di-Hcl) 0.25 Mg Tablet 0.5 Mg PO HS Linzess (Linaclotide) 145 Mcg Capsule 145 Mcg PO DAILY Trazodone Hcl 50 Mg Tablet 75 Mg PO HS Divalproex Sodium 500 Mg Tablet.dr 1,500 Mg PO HS Hydrocortisone 453.6 Gm Cream..g. 1 Juan TP PRN BID PRN Ferrous Sulfate 325 Mg Tablet 650 Mg PO DAILY06 Magnesium Oxide 400 Mg Tablet 400 Mg PO BID Miconazole Nitrate 45 Gm Cream.appl 1 Juan TP PRN BID PRN Aspirin 81 Mg Tab.chew 81 Mg PO DAILY Ibuprofen 400 Mg Tablet 600 Mg PO PRN BID PRN Docusate Sodium 100 Mg Capsule 100 Mg PO BID Fluticasone Propionate Nasal [place] (Fluticasone Propionate) 16 Gm [place].susp 2 [place] NS DAILY Multivitamins (Multivitamin) 1 Each Tablet 1 Tab PO DAILY Trazodone Hcl 50 Mg Tablet 25 Mg PO DAILYWSUP Ascorbic Acid 500 Mg Tablet 500 Mg PO DAILY I have reviewed the current psychotropics carefully including drug interactions. Risk benefit ratio favors no change other than as noted in my dictated progress note. Diagnosis: Problems: (1) Anxiety disorder (2) Lewy body dementia with behavioral disturbance (3) Impulse control disorder (4) Personality disorder in adult SAY PRUETT MD Apr 15, 2018 23:09
[2018-04-16] MEDS: ACETAMINOPHEN 325 MG TABLET PO PRN ×2 (04:00→19:48)
[2018-04-16] MEDS: diazePAM 2 MG TABLET PO PRN (04:00)
[2018-04-16] MEDS: FERROUS SULFATE 325 MG TABLET. PO SCH (05:02)
[2018-04-16] MEDS: CARBIDOPA/LEVODOPA 25/100MG TABLET PO SCH ×9 (05:02→22:00)
[2018-04-16 06:31] VITALS: BP 125/84
[2018-04-16] MEDS: LACTOBACILLUS RHAMNOSUS GG 1 CAPSULE. PO SCH ×2 (07:58→19:43)
[2018-04-16] MEDS: MAGNESIUM OXIDE 400 MG TABLET PO SCH ×2 (07:59→19:43)
[2018-04-16] MEDS: metFORMIN XR 500 MG TAB.ER.24H PO SCH (07:59)
[2018-04-16] MEDS: ASCORBIC ACID 500 MG TABLET PO SCH (07:59)
[2018-04-16] MEDS: CITALOPRAM 20 MG TABLET. PO SCH (07:59)
[2018-04-16] MEDS: ASPIRIN 81 MG TAB.CHEW PO SCH (07:59)
[2018-04-16] MEDS: PRAVASTATIN 20 MG TABLET. PO SCH (07:59)
[2018-04-16] MEDS: LINACLOTIDE 145 MCG CAPSULE. PO SCH (07:59)
[2018-04-16] MEDS: DOXYCYCLINE HYCLATE 100 MG TABLET PO SCH ×2 (08:00→19:43)
[2018-04-16] MEDS: MEMANTINE 10 MG TABLET. PO SCH ×2 (08:00→17:20)
[2018-04-16] MEDS: LACTULOSE 20 GM/30 ML SOLUTION. PO SCH (08:00)
[2018-04-16] MEDS: DOCUSATE SODIUM 100 MG CAPSULE PO SCH ×2 (08:01→19:43)
[2018-04-16] MEDS: MULTIVITAMIN with MINERAL TABLET. PO SCH (08:01)
[2018-04-16] MEDS: NYSTATIN TOPICAL POWDER 15GM BOTTLE. TP SCH ×2 (08:04→19:44)
[2018-04-16] MEDS: FLUTICASONE 50MCG/NASAL SPRAY 16GM BOTTLE. NS SCH (08:04)
[2018-04-16] MEDS: RIVASTIGMINE 4.6MG PATCH. TD SCH (08:05)
[2018-04-16 16:04] VITALS: BP 145/86
[2018-04-16] MEDS: traZODone 50 MG TABLET. PO SCH ×2 (17:07→19:43)
[2018-04-16] MEDS: QUEtiapine 25 MG TABLET. PO SCH (19:43)
[2018-04-16] MEDS: DIVALPROEX SODIUM 250 MG TABLET.DR. PO SCH (19:43)
[2018-04-16] MEDS: CARBIDOPA/LEVODOPA CR 50/200MG TABLET.SA PO SCH (19:43)
[2018-04-16] MEDS: PRAMIPEXOLE 0.25 MG TABLET. PO SCH (19:43)
[2018-04-16] MEDS: MELATONIN 3 MG TABLET PO SCH (19:44)
--- NOTE | 2018-04-16 20:47 | PN ---
DATE: 04/15/2018 PSYCHIATRIC PROGRESS NOTE This late entry 04/15/2018 covers elements not covered in my initial note. SUBJECTIVE: I met with the patient at some length in the evening. The patient slept 2-1/2 hours previous night. I have discussed with nursing staff and social service staff several times during the day given the patient's ongoing mood lability, one-on-one status, and the suicide gesture noted previously. He has not voiced any further suicidal ideation, but remains quite impulsive, erratic. Overall, per nursing strict staff, he has had a better day. REVIEW OF SYSTEMS: Ambulation impaired. No CV, , pulmonary, eye, ENT system symptoms on review. MENTAL STATUS EXAM: Oriented to himself and situation. Speech coherent, rapid at times. Abstraction fair, computation impaired, language function intact, attention span short. Mood and affect remain somewhat anxious, labile. Insight is very limited. LABORATORY DATA: Reviewed. IMPRESSION: Bipolar 1 disorder, unspecified; anxiety disorder, unspecified; major neurocognitive disorder, early Lewy body with delusions. Rest unchanged. PLAN: No change from initial note. Continue psychotropics mentioned in initial note for now. MAN Rosa PRUETT MD DR: MARCEL/nano JOB#: [id number] / [id number]
--- NOTE | 2018-04-16 23:09 | PDOC ---
Exam Note: Сергей Note: Please also refer to the separate dictated note~for this date of service dictated separately.~Patient seen individually. Discussed the patient with Nursing staff reviewed the chart.~Reviewed interim history and current functioning. Reviewed vital signs,~Labs/ Radiology~and current medications noted below. Continue current treatment with the changes noted in the dictated addendum note Assessment: Vital Signs: Vital Signs Date Time Temp Pulse Resp B/P (MAP) Pulse Ox O2 Delivery O2 Flow Rate FiO2 04/16/18 16:04 97.4 65 22 145/86 (105) 95 Room Air I&O Intake and Output 04/16/18 07:00 Intake Total 1260 ml Balance 1260 ml Intake Oral 1260 ml # Voids 1 # Bowel Movements 1 Current Medications: Meds: Current Medications Acetaminophen (Tylenol) 650 mg PRN Q6HRS PRN PO PAIN / TEMP Last administered on 04/16/18at 19:48; Start 04/13/18 at 00:30 Multi-Ingredient Ointment (Analgesic [place]) 1 juan PRN QID PRN TP MUSCLE PAIN; Start 04/13/18 at 00:30 Al Hydroxide/Mg Hydroxide (Mylanta Plus Xs) 15 ml PRN AFTMEALHC PRN PO DYSPEPSIA; Start 04/13/18 at 00:30 Magnesium Hydroxide (Milk Of Magnesia) 2,400 mg PRN QHS PRN PO CONSTIPATION; Start 04/13/18 at 00:30 Olanzapine (ZyPREXA ZYDIS) 5 mg PRN Q2HR PRN PO ANXIETY / AGITATION; Start at 02:00 Citalopram Hydrobromide (CeleXA) 40 mg DAILY PO Last administered on at 07:59; Start 04/13/18 at 09:00; Stop 04/16/18 at 16:42; Status DC Diazepam (Valium) 2 mg PRN Q6HRS PRN PO ANXIETY Last administered on at 04:00; Start 04/13/18 at 02:00 Divalproex Sodium (Depakote) 1,500 mg HS PO Last administered on 04/16/18at 19: 43; Start 04/13/18 at 21:00 Melatonin 3 mg HS PO Last administered on 04/16/18at 19:44; Start 04/13/18 at 21:00 Memantine (Namenda) 5 mg BIDWMEALS PO Last administered on 04/16/18 08:00; Start 04/13/18 at 08:00; Stop 04/16/18 at 16:42; Status DC Quetiapine Fumarate (SEROquel) 25 mg QHS PO Last administered on 04/16/18 19: 43; Start 04/13/18 at 21:00 Rivastigmine (Exelon) 1 patch DAILY TD Last administered on 04/16/18 08:05; Start 04/13/18 at 09:00; Stop 04/16/18 at 16:42; Status DC Trazodone HCl (Desyrel) 25 mg DAILYWSUP PO Last administered on 04/16/18 17: 07; Start 04/13/18 at 17:00 Trazodone HCl (Desyrel) 75 mg QHS PO Last administered on 04/16/18 19:43; Start 04/13/18 at 21:00 Ascorbic Acid (Vitamin C) 500 mg DAILY PO Last administered on 04/16/18 07:59 ; Start 04/13/18 at 09:00 Carbidopa/Levodopa (Sinemet 25/100) 0.5 tab Q2HR W/A PO Last administered on 04/16/18 19:44; Start 04/13/18 at 06:00 Vitamin D (Vitamin D3) 50,000 unit WEEKLY PO Last administered on 04/13/18at 08 :44; Start 04/13/18 at 09:00 Diclofenac Sodium (Voltaren) 1 juan PRN TID PRN TP MUSCLE PAIN; Start 04/13/18 at 02:00 Ferrous Sulfate (Feosol) 650 mg DAILY06 PO Last administered on 04/16/18 05: 02; Start 04/13/18 at 06:00 Ibuprofen (Motrin) 600 mg PRN BID PRN PO PAIN; Start 04/13/18 at 02:00 Linaclotide (Linzess) 145 mcg DAILY PO Last administered on 04/16/18 07:59; Start 04/13/18 at 09:00 Nystatin (Nystop) 1 juan BID TP Last administered on 04/16/18 19:44; Start at 09:00 Aspirin (Children'S Aspirin) 81 mg DAILY PO Last administered on 04/16/18 07: 59; Start 04/13/18 at 09:00 Carbidopa/Levodopa (Sinemet Cr) 1 tab.sa HS PO Last administered on 04/16/18 19:43; Start 04/13/18 at 21:00 Docusate Sodium (Colace) 100 mg BID PO Last administered on 04/16/18 19:43; Start 04/13/18 at 09:00 Doxycycline Hyclate (Vibra-Tab) 100 mg BID PO Last administered on 04/16/18 19:43; Start 04/13/18 at 09:00 Fluticasone Propionate (Flonase) 2 spray DAILY NS Last administered on 08:04; Start 04/13/18 at 09:00 Hydrocortisone (Cortaid) 1 juan PRN BID PRN TP RASH; Start 04/13/18 at 02:00 Lactobacillus Rhamnosus (Culturelle) 1 cap BID PO Last administered on 19:43; Start 04/13/18 at 09:00 Lactulose (Lactulose) 15 gm DAILYWBKFT PO Last administered on 04/15/18 07:37 ; Start 04/13/18 at 08:00 Magnesium Oxide (Magnesium Oxide) 400 mg BID PO Last administered on 19:43; Start 04/13/18 at 09:00 Metformin HCl (Glucophage Xr) 1,000 mg DAILYWBKFT PO Last administered on 04/16 07:59; Start 04/13/18 at 08:00 Miconazole Nitrate (Monistat-Derm) 1 juan PRN BID PRN TP RASH; Start 04/13/18 at 02:00 Multivitamins/ Calcium (Thera-M Plus) 1 tab DAILY PO Last administered on 04/16 08:01; Start 04/13/18 at 09:00 Pramipexole Dihydrochloride (miraPEX) 0.5 mg HS PO Last administered on 19:43; Start 04/13/18 at 21:00 Pravastatin Sodium (Pravachol) 40 mg DAILY PO Last administered on 04/16/18 07:59; Start 04/13/18 at 09:00 Memantine (Namenda) 10 mg BIDWMEALS PO Last administered on 04/16/18at 17:20; Start 04/16/18 at 17:00 Sertraline HCl (Zoloft) 50 mg DAILY PO ; Start 04/17/18 at 09:00 Rivastigmine (Exelon) 1 patch DAILY TD ; Start 04/17/18 at 09:00 Active Scripts Active Reported Doxycycline Hyclate 100 Mg Tablet.dr 100 Mg PO BID Mag-Al Plus Xs Suspension (Mag Hydrox/Al Hydrox/Simeth) 30 Ml Oral.susp 15 Ml PO PRN AFTMEALHC PRN Lactulose 10 Gm/15 Ml Solution 15 Gm PO DAILYWBKFT EXELON 4.6mg/24hr (Rivastigmine) 1 Each Patch.td24 1 Patch TP DAILY Seroquel (Quetiapine Fumarate) 25 Mg Tablet 1 Tab PO QHS Zyprexa Zydis (Olanzapine) 5 Mg Tab.rapdis 5 Mg PO PRN Q2HR PRN Analgesic [place] (Methyl Salicylate/Menthol) 28 Gm Oint...g. 1 Juan TP QID PRN Namenda (Memantine Hcl) 10 Mg Tablet 0.5 Tab PO BIDWMEALS Melatonin 3 Mg Tablet 1 Tab PO QHS Culturelle (Lactobacillus Rhamnosus Gg) 1 Each Capsule 1 Each PO BID Celexa (Citalopram Hydrobromide) 40 Mg Tablet 40 Mg PO DAILY Glucophage Xr (Metformin Hcl) 500 Mg Tab.er.24h 2 Tab PO DAILYWBKFT Nystatin 15 Gm Powder 1 Juan TP BID Milk Of Magnesia (Magnesium Hydroxide) 2,400 Mg/10 Ml Oral.susp 2,400 Mg PO HS PRN Voltaren (Diclofenac Sodium) 100 Gm Gel..gram. 1 Juan TP PRN TID PRN FOR NECK PAIN Vitamin D3 (Cholecalciferol (Vitamin D3)) 50,000 Unit Capsule 50,000 Unit PO WEEKLY Tylenol (Acetaminophen) 325 Mg Tablet 2 Tab PO PRN Q6HRS PRN Pravastatin Sodium 40 Mg Tablet 40 Mg PO DAILY Carbidopa-Levo Er 50-200 Tab (Carbidopa/Levodopa) 1 Each Tablet.er 1 Each PO HS Sinemet 25-100 Mg Tablet (Carbidopa/Levodopa) 1 Each Tablet 0.5 Tab PO Q2HR W/A Diazepam 2 Mg Tablet 2 Mg PO PRN Q6HRS PRN Mirapex (Pramipexole Di-Hcl) 0.25 Mg Tablet 0.5 Mg PO HS Linzess (Linaclotide) 145 Mcg Capsule 145 Mcg PO DAILY Trazodone Hcl 50 Mg Tablet 75 Mg PO HS Divalproex Sodium 500 Mg Tablet.dr 1,500 Mg PO HS Hydrocortisone 453.6 Gm Cream..g. 1 Juan TP PRN BID PRN Ferrous Sulfate 325 Mg Tablet 650 Mg PO DAILY06 Magnesium Oxide 400 Mg Tablet 400 Mg PO BID Miconazole Nitrate 45 Gm Cream.appl 1 Juan TP PRN BID PRN Aspirin 81 Mg Tab.chew 81 Mg PO DAILY Ibuprofen 400 Mg Tablet 600 Mg PO PRN BID PRN Docusate Sodium 100 Mg Capsule 100 Mg PO BID Fluticasone Propionate Nasal [place] (Fluticasone Propionate) 16 Gm [place].susp 2 [place] NS DAILY Multivitamins (Multivitamin) 1 Each Tablet 1 Tab PO DAILY Trazodone Hcl 50 Mg Tablet 25 Mg PO DAILYWSUP Ascorbic Acid 500 Mg Tablet 500 Mg PO DAILY I have reviewed the current psychotropics carefully including drug interactions. Risk benefit ratio favors no change other than as noted in my dictated progress note. Diagnosis: Problems: (1) Anxiety disorder (2) Lewy body dementia with behavioral disturbance (3) Impulse control disorder (4) Personality disorder in adult SAY PRUETT MD Apr 16, 2018 23:09
[2018-04-17 05:46] VITALS: BP 135/92
[2018-04-17] MEDS: CARBIDOPA/LEVODOPA 25/100MG TABLET PO SCH ×9 (06:12→21:53)
[2018-04-17] MEDS: FERROUS SULFATE 325 MG TABLET. PO SCH ×2 (06:12→07:26)
[2018-04-17] MEDS: LACTULOSE 20 GM/30 ML SOLUTION. PO SCH (07:25)
[2018-04-17] MEDS: DOCUSATE SODIUM 100 MG CAPSULE PO SCH ×2 (07:25→19:43)
[2018-04-17] MEDS: MEMANTINE 10 MG TABLET. PO SCH ×2 (07:25→17:11)
[2018-04-17] MEDS: PRAVASTATIN 20 MG TABLET. PO SCH (07:25)
[2018-04-17] MEDS: DOXYCYCLINE HYCLATE 100 MG TABLET PO SCH ×2 (07:25→19:39)
[2018-04-17] MEDS: LACTOBACILLUS RHAMNOSUS GG 1 CAPSULE. PO SCH ×2 (07:25→19:44)
[2018-04-17] MEDS: ASCORBIC ACID 500 MG TABLET PO SCH (07:25)
[2018-04-17] MEDS: MULTIVITAMIN with MINERAL TABLET. PO SCH (07:25)
[2018-04-17] MEDS: metFORMIN XR 500 MG TAB.ER.24H PO SCH (07:26)
[2018-04-17] MEDS: ASPIRIN 81 MG TAB.CHEW PO SCH (07:26)
[2018-04-17] MEDS: MAGNESIUM OXIDE 400 MG TABLET PO SCH ×2 (07:26→19:44)
[2018-04-17] MEDS: LINACLOTIDE 145 MCG CAPSULE. PO SCH (07:28)
[2018-04-17] MEDS: FLUTICASONE 50MCG/NASAL SPRAY 16GM BOTTLE. NS SCH (07:28)
[2018-04-17] MEDS ORDERED: SERTRALINE 50 MG TABLET. ONE (07:29)
[2018-04-17] MEDS: NYSTATIN TOPICAL POWDER 15GM BOTTLE. TP SCH ×2 (07:30→19:46)
[2018-04-17] MEDS: SERTRALINE 50 MG TABLET. PO SCH (07:30)
[2018-04-17] MEDS: RIVASTIGMINE 9.5MG PATCH. TD SCH (07:31)
[2018-04-17 16:35] VITALS: BP 153/93
[2018-04-17] MEDS: traZODone 50 MG TABLET. PO SCH ×3 (17:11→19:45)
[2018-04-17] MEDS: CARBIDOPA/LEVODOPA CR 50/200MG TABLET.SA PO SCH (19:38)
[2018-04-17] MEDS: MELATONIN 3 MG TABLET PO SCH (19:38)
[2018-04-17] MEDS: DIVALPROEX SODIUM 250 MG TABLET.DR. PO SCH (19:38)
[2018-04-17] MEDS: PRAMIPEXOLE 0.25 MG TABLET. PO SCH (19:39)
[2018-04-17] MEDS: QUEtiapine 50 MG TABLET. PO SCH (19:46)
--- NOTE | 2018-04-17 21:55 | PN ---
DATE: 04/16/2018 PSYCHIATRIC PROGRESS NOTE This late entry 04/16/2018 covers elements not covered in my initial note. SUBJECTIVE: I met with the patient in the evening. The patient slept 4 hours previous night. Denies active suicidal ideation per nursing report, but is needy. However, when I met with him in the evening, he is quite anxious, labile, angry at his for not coming to even see him in the hospital after she knew he had attempted to choke himself, loud at times, constantly moving. REVIEW OF SYSTEMS: Ambulation impaired. No CV, , pulmonary, eye system symptoms on review. He is quite obese. MENTAL STATUS EXAM: Reasonably oriented. Speech is coherent, rapid at times. Abstraction fair, computation impaired, language function intact, attention span short. Mood and affect remains labile. He remains on one-on-one status. LABORATORY DATA: Reviewed. IMPRESSION: Bipolar 1 disorder, unspecified; major neurocognitive disorder, possibly early Lewy body with delusions, impulse control disorder; anxiety disorder, unspecified. PLAN: Change Celexa 40 mg a day to Zoloft 50 mg a day, increase Exelon patch from 4.6 to 9.5 mg a day, Namenda from 5 mg b.i.d. to 10 mg b.i.d. for his Lewy body dementia. Continue Depakote at current dosage, level therapeutic at 60. SAY PRUETT MD DR: MARCEL/nano JOB#: [id number] / [id number]
--- NOTE | 2018-04-17 23:22 | PDOC ---
Exam Note: Сергей Note: Please also refer to the separate dictated note~for this date of service dictated separately.~Patient seen individually. Discussed the patient with Nursing staff reviewed the chart.~Reviewed interim history and current functioning. Reviewed vital signs,~Labs/ Radiology~and current medications noted below. Continue current treatment with the changes noted in the dictated addendum note Assessment: Vital Signs: Vital Signs Date Time Temp Pulse Resp B/P (MAP) Pulse Ox O2 Delivery O2 Flow Rate FiO2 04/17/18 16:35 98.3 64 20 153/93 (113) 96 04/16/18 16:04 Room Air I&O Intake and Output 04/17/18 07:00 Intake Total 1680 ml Balance 1680 ml Intake Oral 1680 ml # Bowel Movements 1 Current Medications: Meds: Current Medications Acetaminophen (Tylenol) 650 mg PRN Q6HRS PRN PO PAIN / TEMP Last administered on 04/16/18at 19:48; Start 04/13/18 at 00:30 Multi-Ingredient Ointment (Analgesic [place]) 1 juan PRN QID PRN TP MUSCLE PAIN; Start 04/13/18 at 00:30 Al Hydroxide/Mg Hydroxide (Mylanta Plus Xs) 15 ml PRN AFTMEALHC PRN PO DYSPEPSIA; Start 04/13/18 at 00:30 Magnesium Hydroxide (Milk Of Magnesia) 2,400 mg PRN QHS PRN PO CONSTIPATION; Start 04/13/18 at 00:30 Olanzapine (ZyPREXA ZYDIS) 5 mg PRN Q2HR PRN PO ANXIETY / AGITATION; Start at 02:00 Citalopram Hydrobromide (CeleXA) 40 mg DAILY PO Last administered on at 07:59; Start 04/13/18 at 09:00; Stop 04/16/18 at 16:42; Status DC Diazepam (Valium) 2 mg PRN Q6HRS PRN PO ANXIETY Last administered on at 04:00; Start 04/13/18 at 02:00 Divalproex Sodium (Depakote) 1,500 mg HS PO Last administered on 04/17/18at 19: 38; Start 04/13/18 at 21:00 Melatonin 3 mg HS PO Last administered on 04/17/18at 19:38; Start 04/13/18 at 21:00 Memantine (Namenda) 5 mg BIDWMEALS PO Last administered on 04/16/18at 08:00; Start 04/13/18 at 08:00; Stop 04/16/18 at 16:42; Status DC Quetiapine Fumarate (SEROquel) 25 mg QHS PO Last administered on 04/16/18at 19: 43; Start 04/13/18 at 21:00; Stop 04/17/18 at 16:51; Status DC Rivastigmine (Exelon) 1 patch DAILY TD Last administered on 04/16/18at 08:05; Start 04/13/18 at 09:00; Stop 04/16/18 at 16:42; Status DC Trazodone HCl (Desyrel) 25 mg DAILYWSUP PO Last administered on 04/17/18at 19: 45; Start 04/13/18 at 17:00 Trazodone HCl (Desyrel) 75 mg QHS PO Last administered on 04/17/18 19:45; Start 04/13/18 at 21:00 Ascorbic Acid (Vitamin C) 500 mg DAILY PO Last administered on 04/17/18at 07:25 ; Start 04/13/18 at 09:00 Carbidopa/Levodopa (Sinemet 25/100) 0.5 tab Q2HR W/A PO Last administered on 04/17/18at 21:53; Start 04/13/18 at 06:00 Vitamin D (Vitamin D3) 50,000 unit WEEKLY PO Last administered on 04/13/18at 08 :44; Start 04/13/18 at 09:00 Diclofenac Sodium (Voltaren) 1 juan PRN TID PRN TP MUSCLE PAIN; Start 04/13/18 at 02:00 Ferrous Sulfate (Feosol) 650 mg DAILY06 PO Last administered on 04/17/18at 07: 26; Start 04/13/18 at 06:00 Ibuprofen (Motrin) 600 mg PRN BID PRN PO PAIN; Start 04/13/18 at 02:00 Linaclotide (Linzess) 145 mcg DAILY PO Last administered on 04/17/18at 07:28; Start 04/13/18 at 09:00 Nystatin (Nystop) 1 juan BID TP Last administered on 04/17/18at 19:46; Start at 09:00 Aspirin (Children'S Aspirin) 81 mg DAILY PO Last administered on 04/17/18 07: 26; Start 04/13/18 at 09:00 Carbidopa/Levodopa (Sinemet Cr) 1 tab.sa HS PO Last administered on 04/17/18 19:38; Start 04/13/18 at 21:00 Docusate Sodium (Colace) 100 mg BID PO Last administered on 04/17/18 19:43; Start 04/13/18 at 09:00 Doxycycline Hyclate (Vibra-Tab) 100 mg BID PO Last administered on 04/17/18 19:39; Start 04/13/18 at 09:00 Fluticasone Propionate (Flonase) 2 spray DAILY NS Last administered on 07:28; Start 04/13/18 at 09:00 Hydrocortisone (Cortaid) 1 juan PRN BID PRN TP RASH; Start 04/13/18 at 02:00 Lactobacillus Rhamnosus (Culturelle) 1 cap BID PO Last administered on 19:44; Start 04/13/18 at 09:00 Lactulose (Lactulose) 15 gm DAILYWBKFT PO Last administered on 04/17/18 07:25 ; Start 04/13/18 at 08:00 Magnesium Oxide (Magnesium Oxide) 400 mg BID PO Last administered on 19:44; Start 04/13/18 at 09:00 Metformin HCl (Glucophage Xr) 1,000 mg DAILYWBKFT PO Last administered on 04/17 07:26; Start 04/13/18 at 08:00 Miconazole Nitrate (Monistat-Derm) 1 juan PRN BID PRN TP RASH; Start 04/13/18 at 02:00 Multivitamins/ Calcium (Thera-M Plus) 1 tab DAILY PO Last administered on 04/17 07:25; Start 04/13/18 at 09:00 Pramipexole Dihydrochloride (miraPEX) 0.5 mg HS PO Last administered on 19:39; Start 04/13/18 at 21:00 Pravastatin Sodium (Pravachol) 40 mg DAILY PO Last administered on 04/17/18 07:25; Start 04/13/18 at 09:00 Memantine (Namenda) 10 mg BIDWMEALS PO Last administered on 04/17/18at 17:11; Start 04/16/18 at 17:00 Sertraline HCl (Zoloft) 50 mg DAILY PO Last administered on 04/17/18at 07:30; Start 04/17/18 at 09:00 Rivastigmine (Exelon) 1 patch DAILY TD Last administered on 04/17/18at 07:31; Start 04/17/18 at 09:00 Sertraline HCl (Zoloft) 50 mg STK-MED ONCE .ROUTE ; Start 04/17/18 at 07:29; Stop 04/17/18 at 07:30; Status DC Quetiapine Fumarate (SEROquel) 50 mg QHS PO Last administered on 04/17/18at 19: 46; Start 04/17/18 at 21:00; Stop 04/19/18 at 08:00 Quetiapine Fumarate (SEROquel) 100 mg QHS PO ; Start 04/19/18 at 21:00 Active Scripts Active Reported Doxycycline Hyclate 100 Mg Tablet.dr 100 Mg PO BID Mag-Al Plus Xs Suspension (Mag Hydrox/Al Hydrox/Simeth) 30 Ml Oral.susp 15 Ml PO PRN AFTMEALHC PRN Lactulose 10 Gm/15 Ml Solution 15 Gm PO DAILYWBKFT EXELON 4.6mg/24hr (Rivastigmine) 1 Each Patch.td24 1 Patch TP DAILY Seroquel (Quetiapine Fumarate) 25 Mg Tablet 1 Tab PO QHS Zyprexa Zydis (Olanzapine) 5 Mg Tab.rapdis 5 Mg PO PRN Q2HR PRN Analgesic [place] (Methyl Salicylate/Menthol) 28 Gm Oint...g. 1 Juan TP QID PRN Namenda (Memantine Hcl) 10 Mg Tablet 0.5 Tab PO BIDWMEALS Melatonin 3 Mg Tablet 1 Tab PO QHS Culturelle (Lactobacillus Rhamnosus Gg) 1 Each Capsule 1 Each PO BID Celexa (Citalopram Hydrobromide) 40 Mg Tablet 40 Mg PO DAILY Glucophage Xr (Metformin Hcl) 500 Mg Tab.er.24h 2 Tab PO DAILYWBKFT Nystatin 15 Gm Powder 1 Juan TP BID Milk Of Magnesia (Magnesium Hydroxide) 2,400 Mg/10 Ml Oral.susp 2,400 Mg PO HS PRN Voltaren (Diclofenac Sodium) 100 Gm Gel..gram. 1 Juan TP PRN TID PRN FOR NECK PAIN Vitamin D3 (Cholecalciferol (Vitamin D3)) 50,000 Unit Capsule 50,000 Unit PO WEEKLY Tylenol (Acetaminophen) 325 Mg Tablet 2 Tab PO PRN Q6HRS PRN Pravastatin Sodium 40 Mg Tablet 40 Mg PO DAILY Carbidopa-Levo Er 50-200 Tab (Carbidopa/Levodopa) 1 Each Tablet.er 1 Each PO HS Sinemet 25-100 Mg Tablet (Carbidopa/Levodopa) 1 Each Tablet 0.5 Tab PO Q2HR W/A Diazepam 2 Mg Tablet 2 Mg PO PRN Q6HRS PRN Mirapex (Pramipexole Di-Hcl) 0.25 Mg Tablet 0.5 Mg PO HS Linzess (Linaclotide) 145 Mcg Capsule 145 Mcg PO DAILY Trazodone Hcl 50 Mg Tablet 75 Mg PO HS Divalproex Sodium 500 Mg Tablet.dr 1,500 Mg PO HS Hydrocortisone 453.6 Gm Cream..g. 1 Juan TP PRN BID PRN Ferrous Sulfate 325 Mg Tablet 650 Mg PO DAILY06 Magnesium Oxide 400 Mg Tablet 400 Mg PO BID Miconazole Nitrate 45 Gm Cream.appl 1 Juan TP PRN BID PRN Aspirin 81 Mg Tab.chew 81 Mg PO DAILY Ibuprofen 400 Mg Tablet 600 Mg PO PRN BID PRN Docusate Sodium 100 Mg Capsule 100 Mg PO BID Fluticasone Propionate Nasal [place] (Fluticasone Propionate) 16 Gm [place].susp 2 [place] NS DAILY Multivitamins (Multivitamin) 1 Each Tablet 1 Tab PO DAILY Trazodone Hcl 50 Mg Tablet 25 Mg PO DAILYWSUP Ascorbic Acid 500 Mg Tablet 500 Mg PO DAILY I have reviewed the current psychotropics carefully including drug interactions. Risk benefit ratio favors no change other than as noted in my dictated progress note. Diagnosis: Problems: (1) Anxiety disorder (2) Lewy body dementia with behavioral disturbance (3) Impulse control disorder (4) Personality disorder in adult SAY PRUETT MD Apr 17, 2018 23:22
[2018-04-18] MEDS: diazePAM 2 MG TABLET PO PRN (00:21)
[2018-04-18 05:38] VITALS: BP 128/82
[2018-04-18] MEDS: CARBIDOPA/LEVODOPA 25/100MG TABLET PO SCH ×9 (06:06→22:00)
[2018-04-18] MEDS: RIVASTIGMINE 9.5MG PATCH. TD SCH (08:09)
[2018-04-18] MEDS: MAGNESIUM OXIDE 400 MG TABLET PO SCH ×2 (08:10→19:44)
[2018-04-18] MEDS: LACTULOSE 20 GM/30 ML SOLUTION. PO SCH (08:10)
[2018-04-18] MEDS: MULTIVITAMIN with MINERAL TABLET. PO SCH (08:10)
[2018-04-18] MEDS: LINACLOTIDE 145 MCG CAPSULE. PO SCH (08:10)
[2018-04-18] MEDS: metFORMIN XR 500 MG TAB.ER.24H PO SCH (08:10)
[2018-04-18] MEDS: LACTOBACILLUS RHAMNOSUS GG 1 CAPSULE. PO SCH ×2 (08:10→19:46)
[2018-04-18] MEDS: DOCUSATE SODIUM 100 MG CAPSULE PO SCH ×2 (08:10→19:46)
[2018-04-18] MEDS: PRAVASTATIN 20 MG TABLET. PO SCH (08:10)
[2018-04-18] MEDS: DOXYCYCLINE HYCLATE 100 MG TABLET PO SCH ×2 (08:10→19:46)
[2018-04-18] MEDS: ASCORBIC ACID 500 MG TABLET PO SCH (08:11)
[2018-04-18] MEDS: FLUTICASONE 50MCG/NASAL SPRAY 16GM BOTTLE. NS SCH (08:11)
[2018-04-18] MEDS: NYSTATIN TOPICAL POWDER 15GM BOTTLE. TP SCH ×2 (08:11→19:46)
[2018-04-18] MEDS: MEMANTINE 10 MG TABLET. PO SCH ×2 (08:11→17:00)
[2018-04-18] MEDS: ASPIRIN 81 MG TAB.CHEW PO SCH (08:11)
[2018-04-18] MEDS: SERTRALINE 50 MG TABLET. PO SCH (08:11)
[2018-04-18 16:09] VITALS: BP 136/79
[2018-04-18] MEDS: PRAMIPEXOLE 0.25 MG TABLET. PO SCH (19:44)
[2018-04-18] MEDS: DIVALPROEX SODIUM 250 MG TABLET.DR. PO SCH (19:45)
[2018-04-18] MEDS: traZODone 50 MG TABLET. PO SCH (19:45)
[2018-04-18] MEDS: QUEtiapine 50 MG TABLET. PO SCH (19:46)
[2018-04-18] MEDS: MELATONIN 3 MG TABLET PO SCH (19:46)
[2018-04-18] MEDS: CARBIDOPA/LEVODOPA CR 50/200MG TABLET.SA PO SCH (19:46)
--- NOTE | 2018-04-18 20:24 | PN ---
DATE: 04/17/2018 PSYCHIATRIC PROGRESS NOTE This late entry 04/18/2018 covers elements not covered in my initial note. SUBJECTIVE: I met with the patient in the evening at great length. The patient slept reasonably the night before. He was in groups earlier in the day, bragging, somewhat grandiose, labile in his mood. He tried to break a stick that was attached to a Halloween toy and was threatening to stab himself. Staff intervened. When I questioned him at length individually in the evening, he denied active suicidal ideation. REVIEW OF SYSTEMS: Ambulation impaired, in wheelchair. No CV, , pulmonary, eye, ENT system symptoms on review. MENTAL STATUS EXAM: Oriented reasonably. Speech as noted; abstraction fair; computation, able to do one step on serial 7's. No active suicidal or homicidal ideation. Mood and affect remain somewhat labile. LABORATORY DATA: Reviewed. IMPRESSION: Bipolar 1 disorder, unspecified, probable dementia, Lewy body early with delusion; anxiety disorder, unspecified; impulse control disorder, unspecified. PLAN: Continue psychotropics from initial note. Seroquel is currently at 25 mg at bedtime, we will increase to 50 mg at bedtime, in 2 days increase it to 100 mg at bedtime. He is also extremely anxious and we have added Zoloft 25 mg a day, which is something he has been on in the past as well. This is in place of the Celexa. MAN Rosa PRUETT MD DR: MARCEL/nano JOB#: [id number] / [id number]
--- NOTE | 2018-04-18 23:10 | PDOC ---
Exam Note: Сергей Note: Please also refer to the separate dictated note~for this date of service dictated separately.~Patient seen individually. Discussed the patient with Nursing staff reviewed the chart.~Reviewed interim history and current functioning. Reviewed vital signs,~Labs/ Radiology~and current medications noted below. Continue current treatment with the changes noted in the dictated addendum note Assessment: Vital Signs: Vital Signs Date Time Temp Pulse Resp B/P (MAP) Pulse Ox O2 Delivery O2 Flow Rate FiO2 04/18/18 16:09 97.3 67 20 136/79 (98) 94 Room Air I&O Intake and Output 04/18/18 07:00 Intake Total 1200 ml Balance 1200 ml Intake Oral 1200 ml # Voids 4 # Bowel Movements 1 Current Medications: Meds: Current Medications Acetaminophen (Tylenol) 650 mg PRN Q6HRS PRN PO PAIN / TEMP Last administered on 04/16/18at 19:48; Start 04/13/18 at 00:30 Multi-Ingredient Ointment (Analgesic [place]) 1 juan PRN QID PRN TP MUSCLE PAIN; Start 04/13/18 at 00:30 Al Hydroxide/Mg Hydroxide (Mylanta Plus Xs) 15 ml PRN AFTMEALHC PRN PO DYSPEPSIA; Start 04/13/18 at 00:30 Magnesium Hydroxide (Milk Of Magnesia) 2,400 mg PRN QHS PRN PO CONSTIPATION; Start 04/13/18 at 00:30 Olanzapine (ZyPREXA ZYDIS) 5 mg PRN Q2HR PRN PO ANXIETY / AGITATION; Start at 02:00 Citalopram Hydrobromide (CeleXA) 40 mg DAILY PO Last administered on at 07:59; Start 04/13/18 at 09:00; Stop 04/16/18 at 16:42; Status DC Diazepam (Valium) 2 mg PRN Q6HRS PRN PO ANXIETY Last administered on 04/18/18at 00:21; Start 04/13/18 at 02:00 Divalproex Sodium (Depakote) 1,500 mg HS PO Last administered on 04/18/18at 19: 45; Start 04/13/18 at 21:00 Melatonin 3 mg HS PO Last administered on 04/18/18 19:46; Start 04/13/18 at 21:00 Memantine (Namenda) 5 mg BIDWMEALS PO Last administered on 04/16/18at 08:00; Start 04/13/18 at 08:00; Stop 04/16/18 at 16:42; Status DC Quetiapine Fumarate (SEROquel) 25 mg QHS PO Last administered on 04/16/18at 19: 43; Start 04/13/18 at 21:00; Stop 04/17/18 at 16:51; Status DC Rivastigmine (Exelon) 1 patch DAILY TD Last administered on 04/16/18at 08:05; Start 04/13/18 at 09:00; Stop 04/16/18 at 16:42; Status DC Trazodone HCl (Desyrel) 25 mg DAILYWSUP PO Last administered on 04/17/18 19: 45; Start 04/13/18 at 17:00 Trazodone HCl (Desyrel) 75 mg QHS PO Last administered on 04/18/18 19:45; Start 04/13/18 at 21:00 Ascorbic Acid (Vitamin C) 500 mg DAILY PO Last administered on 04/18/18at 08:11 ; Start 04/13/18 at 09:00 Carbidopa/Levodopa (Sinemet 25/100) 0.5 tab Q2HR W/A PO Last administered on 04/18/18at 19:44; Start 04/13/18 at 06:00 Vitamin D (Vitamin D3) 50,000 unit WEEKLY PO Last administered on 04/13/18at 08 :44; Start 04/13/18 at 09:00 Diclofenac Sodium (Voltaren) 1 juan PRN TID PRN TP MUSCLE PAIN; Start 04/13/18 at 02:00 Ferrous Sulfate (Feosol) 650 mg DAILY06 PO Last administered on 04/17/18at 07: 26; Start 04/13/18 at 06:00 Ibuprofen (Motrin) 600 mg PRN BID PRN PO PAIN; Start 04/13/18 at 02:00 Linaclotide (Linzess) 145 mcg DAILY PO Last administered on 04/18/18at 08:10; Start 04/13/18 at 09:00 Nystatin (Nystop) 1 juan BID TP Last administered on 04/18/18at 19:46; Start at 09:00 Aspirin (Children'S Aspirin) 81 mg DAILY PO Last administered on 04/18/18 08: 11; Start 04/13/18 at 09:00 Carbidopa/Levodopa (Sinemet Cr) 1 tab.sa HS PO Last administered on 04/18/18 19:46; Start 04/13/18 at 21:00 Docusate Sodium (Colace) 100 mg BID PO Last administered on 04/18/18 19:46; Start 04/13/18 at 09:00 Doxycycline Hyclate (Vibra-Tab) 100 mg BID PO Last administered on 04/18/18 19 :46; Start 04/13/18 at 09:00 Fluticasone Propionate (Flonase) 2 spray DAILY NS Last administered on 08:11; Start 04/13/18 at 09:00 Hydrocortisone (Cortaid) 1 juan PRN BID PRN TP RASH; Start 04/13/18 at 02:00 Lactobacillus Rhamnosus (Culturelle) 1 cap BID PO Last administered on 19:46; Start 04/13/18 at 09:00 Lactulose (Lactulose) 15 gm DAILYWBKFT PO Last administered on 04/18/18 08:10 ; Start 04/13/18 at 08:00 Magnesium Oxide (Magnesium Oxide) 400 mg BID PO Last administered on 04/18/18 19:44; Start 04/13/18 at 09:00 Metformin HCl (Glucophage Xr) 1,000 mg DAILYWBKFT PO Last administered on 08:10; Start 04/13/18 at 08:00 Miconazole Nitrate (Monistat-Derm) 1 juan PRN BID PRN TP RASH; Start 04/13/18 at 02:00 Multivitamins/ Calcium (Thera-M Plus) 1 tab DAILY PO Last administered on 08:10; Start 04/13/18 at 09:00 Pramipexole Dihydrochloride (miraPEX) 0.5 mg HS PO Last administered on 19:44; Start 04/13/18 at 21:00 Pravastatin Sodium (Pravachol) 40 mg DAILY PO Last administered on 04/18/18at 08 :10; Start 04/13/18 at 09:00 Memantine (Namenda) 10 mg BIDWMEALS PO Last administered on 04/18/18at 08:11; Start 04/16/18 at 17:00 Sertraline HCl (Zoloft) 50 mg DAILY PO Last administered on 04/18/18at 08:11; Start 04/17/18 at 09:00; Stop 04/20/18 at 05:00 Rivastigmine (Exelon) 1 patch DAILY TD Last administered on 04/18/18at 08:09; Start 04/17/18 at 09:00 Sertraline HCl (Zoloft) 50 mg STK-MED ONCE .ROUTE ; Start 04/17/18 at 07:29; Stop 04/17/18 at 07:30; Status DC Quetiapine Fumarate (SEROquel) 50 mg QHS PO Last administered on 04/18/18at 19: 46; Start 04/17/18 at 21:00; Stop 04/19/18 at 08:00 Quetiapine Fumarate (SEROquel) 100 mg QHS PO ; Start 04/19/18 at 21:00 Sertraline HCl (Zoloft) 75 mg DAILY PO ; Start 04/20/18 at 09:00 Active Scripts Active Reported Doxycycline Hyclate 100 Mg Tablet.dr 100 Mg PO BID Mag-Al Plus Xs Suspension (Mag Hydrox/Al Hydrox/Simeth) 30 Ml Oral.susp 15 Ml PO PRN AFTMEALHC PRN Lactulose 10 Gm/15 Ml Solution 15 Gm PO DAILYWBKFT EXELON 4.6mg/24hr (Rivastigmine) 1 Each Patch.td24 1 Patch TP DAILY Seroquel (Quetiapine Fumarate) 25 Mg Tablet 1 Tab PO QHS Zyprexa Zydis (Olanzapine) 5 Mg Tab.rapdis 5 Mg PO PRN Q2HR PRN Analgesic [place] (Methyl Salicylate/Menthol) 28 Gm Oint...g. 1 Juan TP QID PRN Namenda (Memantine Hcl) 10 Mg Tablet 0.5 Tab PO BIDWMEALS Melatonin 3 Mg Tablet 1 Tab PO QHS Culturelle (Lactobacillus Rhamnosus Gg) 1 Each Capsule 1 Each PO BID Celexa (Citalopram Hydrobromide) 40 Mg Tablet 40 Mg PO DAILY Glucophage Xr (Metformin Hcl) 500 Mg Tab.er.24h 2 Tab PO DAILYWBKFT Nystatin 15 Gm Powder 1 Juan TP BID Milk Of Magnesia (Magnesium Hydroxide) 2,400 Mg/10 Ml Oral.susp 2,400 Mg PO HS PRN Voltaren (Diclofenac Sodium) 100 Gm Gel..gram. 1 Juan TP PRN TID PRN FOR NECK PAIN Vitamin D3 (Cholecalciferol (Vitamin D3)) 50,000 Unit Capsule 50,000 Unit PO WEEKLY Tylenol (Acetaminophen) 325 Mg Tablet 2 Tab PO PRN Q6HRS PRN Pravastatin Sodium 40 Mg Tablet 40 Mg PO DAILY Carbidopa-Levo Er 50-200 Tab (Carbidopa/Levodopa) 1 Each Tablet.er 1 Each PO HS Sinemet 25-100 Mg Tablet (Carbidopa/Levodopa) 1 Each Tablet 0.5 Tab PO Q2HR W/A Diazepam 2 Mg Tablet 2 Mg PO PRN Q6HRS PRN Mirapex (Pramipexole Di-Hcl) 0.25 Mg Tablet 0.5 Mg PO HS Linzess (Linaclotide) 145 Mcg Capsule 145 Mcg PO DAILY Trazodone Hcl 50 Mg Tablet 75 Mg PO HS Divalproex Sodium 500 Mg Tablet.dr 1,500 Mg PO HS Hydrocortisone 453.6 Gm Cream..g. 1 Juan TP PRN BID PRN Ferrous Sulfate 325 Mg Tablet 650 Mg PO DAILY06 Magnesium Oxide 400 Mg Tablet 400 Mg PO BID Miconazole Nitrate 45 Gm Cream.appl 1 Juan TP PRN BID PRN Aspirin 81 Mg Tab.chew 81 Mg PO DAILY Ibuprofen 400 Mg Tablet 600 Mg PO PRN BID PRN Docusate Sodium 100 Mg Capsule 100 Mg PO BID Fluticasone Propionate Nasal [place] (Fluticasone Propionate) 16 Gm [place].susp 2 [place] NS DAILY Multivitamins (Multivitamin) 1 Each Tablet 1 Tab PO DAILY Trazodone Hcl 50 Mg Tablet 25 Mg PO DAILYWSUP Ascorbic Acid 500 Mg Tablet 500 Mg PO DAILY I have reviewed the current psychotropics carefully including drug interactions. Risk benefit ratio favors no change other than as noted in my dictated progress note. Diagnosis: Problems: (1) Anxiety disorder (2) Lewy body dementia with behavioral disturbance (3) Impulse control disorder (4) Personality disorder in adult SAY PRUETT MD Apr 18, 2018 23:10
[2018-04-19] MEDS: ACETAMINOPHEN 325 MG TABLET PO PRN (02:05)
[2018-04-19] MEDS: FERROUS SULFATE 325 MG TABLET. PO SCH (05:04)
[2018-04-19] MEDS: CARBIDOPA/LEVODOPA 25/100MG TABLET PO SCH ×10 (05:04→22:26)
[2018-04-19 06:20] VITALS: BP 131/82
[2018-04-19] MEDS: metFORMIN XR 500 MG TAB.ER.24H PO SCH (08:11)
[2018-04-19] MEDS: LACTULOSE 20 GM/30 ML SOLUTION. PO SCH (08:12)
[2018-04-19] MEDS: LACTOBACILLUS RHAMNOSUS GG 1 CAPSULE. PO SCH ×2 (08:13→19:48)
[2018-04-19] MEDS: MEMANTINE 10 MG TABLET. PO SCH ×2 (08:13→17:05)
[2018-04-19] MEDS: DOCUSATE SODIUM 100 MG CAPSULE PO SCH ×2 (08:13→19:57)
[2018-04-19] MEDS: ASPIRIN 81 MG TAB.CHEW PO SCH (08:13)
[2018-04-19] MEDS: FLUTICASONE 50MCG/NASAL SPRAY 16GM BOTTLE. NS SCH (08:13)
[2018-04-19] MEDS: MAGNESIUM OXIDE 400 MG TABLET PO SCH ×2 (08:14→19:46)
[2018-04-19] MEDS: LINACLOTIDE 145 MCG CAPSULE. PO SCH (08:14)
[2018-04-19] MEDS: PRAVASTATIN 20 MG TABLET. PO SCH (08:14)
[2018-04-19] MEDS: DOXYCYCLINE HYCLATE 100 MG TABLET PO SCH ×2 (08:15→19:47)
[2018-04-19] MEDS: MULTIVITAMIN with MINERAL TABLET. PO SCH (08:15)
[2018-04-19] MEDS: SERTRALINE 50 MG TABLET. PO SCH (08:15)
[2018-04-19] MEDS: ASCORBIC ACID 500 MG TABLET PO SCH (08:15)
[2018-04-19] MEDS: RIVASTIGMINE 9.5MG PATCH. TD SCH (08:16)
[2018-04-19] MEDS: NYSTATIN TOPICAL POWDER 15GM BOTTLE. TP SCH ×2 (08:17→19:50)
[2018-04-19] MEDS: IBUPROFEN 600 MG TABLET. PO PRN (10:07)
[2018-04-19 15:49] VITALS: BP 133/87
[2018-04-19] MEDS: traZODone 50 MG TABLET. PO SCH ×2 (17:04→19:48)
[2018-04-19] MEDS: CARBIDOPA/LEVODOPA CR 50/200MG TABLET.SA PO SCH (19:46)
[2018-04-19] MEDS: MELATONIN 3 MG TABLET PO SCH (19:47)
[2018-04-19] MEDS: PRAMIPEXOLE 0.25 MG TABLET. PO SCH (19:56)
[2018-04-19] MEDS: DIVALPROEX SODIUM 250 MG TABLET.DR. PO SCH (19:56)
[2018-04-19] MEDS: QUEtiapine 100 MG TABLET. PO SCH (20:07)
--- NOTE | 2018-04-19 21:28 | PN ---
DATE: 04/18/2018 PSYCHIATRIC PROGRESS NOTE This late entry 04/18/2018 covers elements not covered in my initial note. SUBJECTIVE: I met with the patient at some length in the evening and staffed at a treatment team meeting with the entire team in the morning with the patient's who is his guardian, Dea, attending the conference. The patient slept 3 hours previous night. He has been calmer, more appropriate, takes his medications whole. No aggressive behaviors. No threats of wanting to hurt himself. shared with us that in the past he has done very well on Zoloft for his anxiety, panic mood symptoms. REVIEW OF SYSTEMS: Ambulation impaired, in wheelchair. No CV, , pulmonary, eye system symptoms on review. MENTAL STATUS EXAM: Reasonably oriented. Speech is coherent, abstraction fair, computation impaired, language function intact. Attention span short. He was playing [employer] by himself in the [place] and asked him to explain the game to me. He tried to explain it, but was quite disorganized and distracted, but pleasant. LABORATORY DATA: Reviewed. IMPRESSION: Bipolar 1 disorder, mixed, Lewy body dementia, early with delusion; anxiety disorder, unspecified. Rest unchanged including impulse control disorder. PLAN: From a psychiatric standpoint, he is on Zoloft 50 mg a day and after 3 days of this, we will increase to 75. Continue Depakote, melatonin. Valproic acid level therapeutic at 60. He is on Namenda 5 mg b.i.d., Exelon patch, Seroquel, trazodone. Adjust further as clinically indicated. MAN Rosa PRUETT MD DR: MARCEL/nano JOB#: [id number] / [id number]
--- NOTE | 2018-04-19 23:07 | PDOC ---
Exam Note: Сергей Note: Please also refer to the separate dictated note~for this date of service dictated separately.~Patient seen individually. Discussed the patient with Nursing staff reviewed the chart.~Reviewed interim history and current functioning. Reviewed vital signs,~Labs/ Radiology~and current medications noted below. Continue current treatment with the changes noted in the dictated addendum note Assessment: Vital Signs: Vital Signs Date Time Temp Pulse Resp B/P (MAP) Pulse Ox O2 Delivery O2 Flow Rate FiO2 04/19/18 15:49 97.4 59 20 133/87 (102) 97 Room Air I&O Intake and Output 04/19/18 07:00 Intake Total 600 ml Output Total 400 ml Balance 200 ml Intake Oral 600 ml Output Urine Total 400 ml # Bowel Movements 1 Current Medications: Meds: Current Medications Acetaminophen (Tylenol) 650 mg PRN Q6HRS PRN PO PAIN / TEMP Last administered on 04/19/18at 02:05; Start 04/13/18 at 00:30 Multi-Ingredient Ointment (Analgesic [place]) 1 juan PRN QID PRN TP MUSCLE PAIN; Start 04/13/18 at 00:30 Al Hydroxide/Mg Hydroxide (Mylanta Plus Xs) 15 ml PRN AFTMEALHC PRN PO DYSPEPSIA; Start 04/13/18 at 00:30 Magnesium Hydroxide (Milk Of Magnesia) 2,400 mg PRN QHS PRN PO CONSTIPATION; Start 04/13/18 at 00:30 Olanzapine (ZyPREXA ZYDIS) 5 mg PRN Q2HR PRN PO ANXIETY / AGITATION Last administered on 04/19/18at 17:05; Start 04/13/18 at 02:00 Citalopram Hydrobromide (CeleXA) 40 mg DAILY PO Last administered on at 07:59; Start 04/13/18 at 09:00; Stop 04/16/18 at 16:42; Status DC Diazepam (Valium) 2 mg PRN Q6HRS PRN PO ANXIETY Last administered on 04/18/18at 00:21; Start 04/13/18 at 02:00 Divalproex Sodium (Depakote) 1,500 mg HS PO Last administered on 04/19/18at 19: 56; Start 04/13/18 at 21:00 Melatonin 3 mg HS PO Last administered on 04/19/18 19:47; Start 04/13/18 at 21:00 Memantine (Namenda) 5 mg BIDWMEALS PO Last administered on 04/16/18at 08:00; Start 04/13/18 at 08:00; Stop 04/16/18 at 16:42; Status DC Quetiapine Fumarate (SEROquel) 25 mg QHS PO Last administered on 04/16/18 19: 43; Start 04/13/18 at 21:00; Stop 04/17/18 at 16:51; Status DC Rivastigmine (Exelon) 1 patch DAILY TD Last administered on 04/16/18 08:05; Start 04/13/18 at 09:00; Stop 04/16/18 at 16:42; Status DC Trazodone HCl (Desyrel) 25 mg DAILYWSUP PO Last administered on 04/19/18 17:04 ; Start 04/13/18 at 17:00 Trazodone HCl (Desyrel) 75 mg QHS PO Last administered on 04/19/18 19:48; Start 04/13/18 at 21:00 Ascorbic Acid (Vitamin C) 500 mg DAILY PO Last administered on 04/19/18 08:15 ; Start 04/13/18 at 09:00 Carbidopa/Levodopa (Sinemet 25/100) 0.5 tab Q2HR W/A PO Last administered on 04/19/18 22:26; Start 04/13/18 at 06:00 Vitamin D (Vitamin D3) 50,000 unit WEEKLY PO Last administered on 04/13/18at 08 :44; Start 04/13/18 at 09:00 Diclofenac Sodium (Voltaren) 1 juan PRN TID PRN TP MUSCLE PAIN; Start 04/13/18 at 02:00 Ferrous Sulfate (Feosol) 650 mg DAILY06 PO Last administered on 04/19/18 05:04 ; Start 04/13/18 at 06:00 Ibuprofen (Motrin) 600 mg PRN BID PRN PO PAIN Last administered on 04/19/18at 10 :07; Start 04/13/18 at 02:00 Linaclotide (Linzess) 145 mcg DAILY PO Last administered on 04/19/18at 08:14; Start 04/13/18 at 09:00 Nystatin (Nystop) 1 juan BID TP Last administered on 04/19/18 19:50; Start at 09:00 Aspirin (Children'S Aspirin) 81 mg DAILY PO Last administered on 04/19/18 08: 13; Start 04/13/18 at 09:00 Carbidopa/Levodopa (Sinemet Cr) 1 tab.sa HS PO Last administered on 04/19/18 19:46; Start 04/13/18 at 21:00 Docusate Sodium (Colace) 100 mg BID PO Last administered on 04/19/18 19:57; Start 04/13/18 at 09:00 Doxycycline Hyclate (Vibra-Tab) 100 mg BID PO Last administered on 04/19/18 19 :47; Start 04/13/18 at 09:00 Fluticasone Propionate (Flonase) 2 spray DAILY NS Last administered on 08:13; Start 04/13/18 at 09:00 Hydrocortisone (Cortaid) 1 juan PRN BID PRN TP RASH; Start 04/13/18 at 02:00 Lactobacillus Rhamnosus (Culturelle) 1 cap BID PO Last administered on 19:48; Start 04/13/18 at 09:00 Lactulose (Lactulose) 15 gm DAILYWBKFT PO Last administered on 04/19/18 08:12 ; Start 04/13/18 at 08:00 Magnesium Oxide (Magnesium Oxide) 400 mg BID PO Last administered on 04/19/18 19:46; Start 04/13/18 at 09:00 Metformin HCl (Glucophage Xr) 1,000 mg DAILYWBKFT PO Last administered on 08:11; Start 04/13/18 at 08:00 Miconazole Nitrate (Monistat-Derm) 1 juan PRN BID PRN TP RASH; Start 04/13/18 at 02:00 Multivitamins/ Calcium (Thera-M Plus) 1 tab DAILY PO Last administered on 08:15; Start 04/13/18 at 09:00 Pramipexole Dihydrochloride (miraPEX) 0.5 mg HS PO Last administered on 19:56; Start 04/13/18 at 21:00 Pravastatin Sodium (Pravachol) 40 mg DAILY PO Last administered on 04/19/18at 08 :14; Start 04/13/18 at 09:00 Memantine (Namenda) 10 mg BIDWMEALS PO Last administered on 04/19/18at 17:05; Start 04/16/18 at 17:00 Sertraline HCl (Zoloft) 50 mg DAILY PO Last administered on 04/19/18at 08:15; Start 04/17/18 at 09:00; Stop 04/20/18 at 05:00 Rivastigmine (Exelon) 1 patch DAILY TD Last administered on 04/19/18at 08:16; Start 04/17/18 at 09:00 Sertraline HCl (Zoloft) 50 mg STK-MED ONCE .ROUTE ; Start 04/17/18 at 07:29; Stop 04/17/18 at 07:30; Status DC Quetiapine Fumarate (SEROquel) 50 mg QHS PO Last administered on 04/18/18at 19: 46; Start 04/17/18 at 21:00; Stop 04/19/18 at 08:01; Status DC Quetiapine Fumarate (SEROquel) 100 mg QHS PO Last administered on 04/19/18at 20: 07; Start 04/19/18 at 21:00 Sertraline HCl (Zoloft) 75 mg DAILY PO ; Start 04/20/18 at 09:00 Active Scripts Active Reported Doxycycline Hyclate 100 Mg Tablet.dr 100 Mg PO BID Mag-Al Plus Xs Suspension (Mag Hydrox/Al Hydrox/Simeth) 30 Ml Oral.susp 15 Ml PO PRN AFTMEALHC PRN Lactulose 10 Gm/15 Ml Solution 15 Gm PO DAILYWBKFT EXELON 4.6mg/24hr (Rivastigmine) 1 Each Patch.td24 1 Patch TP DAILY Seroquel (Quetiapine Fumarate) 25 Mg Tablet 1 Tab PO QHS Zyprexa Zydis (Olanzapine) 5 Mg Tab.rapdis 5 Mg PO PRN Q2HR PRN Analgesic [place] (Methyl Salicylate/Menthol) 28 Gm Oint...g. 1 Juan TP QID PRN Namenda (Memantine Hcl) 10 Mg Tablet 0.5 Tab PO BIDWMEALS Melatonin 3 Mg Tablet 1 Tab PO QHS Culturelle (Lactobacillus Rhamnosus Gg) 1 Each Capsule 1 Each PO BID Celexa (Citalopram Hydrobromide) 40 Mg Tablet 40 Mg PO DAILY Glucophage Xr (Metformin Hcl) 500 Mg Tab.er.24h 2 Tab PO DAILYWBKFT Nystatin 15 Gm Powder 1 Juan TP BID Milk Of Magnesia (Magnesium Hydroxide) 2,400 Mg/10 Ml Oral.susp 2,400 Mg PO HS PRN Voltaren (Diclofenac Sodium) 100 Gm Gel..gram. 1 Juan TP PRN TID PRN FOR NECK PAIN Vitamin D3 (Cholecalciferol (Vitamin D3)) 50,000 Unit Capsule 50,000 Unit PO WEEKLY Tylenol (Acetaminophen) 325 Mg Tablet 2 Tab PO PRN Q6HRS PRN Pravastatin Sodium 40 Mg Tablet 40 Mg PO DAILY Carbidopa-Levo Er 50-200 Tab (Carbidopa/Levodopa) 1 Each Tablet.er 1 Each PO HS Sinemet 25-100 Mg Tablet (Carbidopa/Levodopa) 1 Each Tablet 0.5 Tab PO Q2HR W/A Diazepam 2 Mg Tablet 2 Mg PO PRN Q6HRS PRN Mirapex (Pramipexole Di-Hcl) 0.25 Mg Tablet 0.5 Mg PO HS Linzess (Linaclotide) 145 Mcg Capsule 145 Mcg PO DAILY Trazodone Hcl 50 Mg Tablet 75 Mg PO HS Divalproex Sodium 500 Mg Tablet.dr 1,500 Mg PO HS Hydrocortisone 453.6 Gm Cream..g. 1 Juan TP PRN BID PRN Ferrous Sulfate 325 Mg Tablet 650 Mg PO DAILY06 Magnesium Oxide 400 Mg Tablet 400 Mg PO BID Miconazole Nitrate 45 Gm Cream.appl 1 Juan TP PRN BID PRN Aspirin 81 Mg Tab.chew 81 Mg PO DAILY Ibuprofen 400 Mg Tablet 600 Mg PO PRN BID PRN Docusate Sodium 100 Mg Capsule 100 Mg PO BID Fluticasone Propionate Nasal [place] (Fluticasone Propionate) 16 Gm [place].susp 2 [place] NS DAILY Multivitamins (Multivitamin) 1 Each Tablet 1 Tab PO DAILY Trazodone Hcl 50 Mg Tablet 25 Mg PO DAILYWSUP Ascorbic Acid 500 Mg Tablet 500 Mg PO DAILY I have reviewed the current psychotropics carefully including drug interactions. Risk benefit ratio favors no change other than as noted in my dictated progress note. Diagnosis: Problems: (1) Anxiety disorder (2) Lewy body dementia with behavioral disturbance (3) Impulse control disorder (4) Personality disorder in adult SEBLE,MAN M MD Apr 19, 2018 23:07
[2018-04-20] MEDS: FERROUS SULFATE 325 MG TABLET. PO SCH (05:11)
[2018-04-20] MEDS: CARBIDOPA/LEVODOPA 25/100MG TABLET PO SCH ×9 (05:11→23:13)
[2018-04-20 06:03] VITALS: BP 110/64
[2018-04-20] MEDS: RIVASTIGMINE 9.5MG PATCH. TD SCH (07:26)
[2018-04-20] MEDS: DOXYCYCLINE HYCLATE 100 MG TABLET PO SCH ×2 (07:26→21:25)
[2018-04-20] MEDS: LACTULOSE 20 GM/30 ML SOLUTION. PO SCH (07:26)
[2018-04-20] MEDS: MULTIVITAMIN with MINERAL TABLET. PO SCH (07:27)
[2018-04-20] MEDS: MEMANTINE 10 MG TABLET. PO SCH ×2 (07:27→16:40)
[2018-04-20] MEDS: ASCORBIC ACID 500 MG TABLET PO SCH (07:27)
[2018-04-20] MEDS: PRAVASTATIN 20 MG TABLET. PO SCH (07:27)
[2018-04-20] MEDS: LACTOBACILLUS RHAMNOSUS GG 1 CAPSULE. PO SCH ×2 (07:27→21:25)
[2018-04-20] MEDS: metFORMIN XR 500 MG TAB.ER.24H PO SCH (07:27)
[2018-04-20] MEDS: LINACLOTIDE 145 MCG CAPSULE. PO SCH (07:27)
[2018-04-20] MEDS: CHOLECALCIFEROL (VITAMIN D3) 50,000 UNIT CAPSULE PO SCH (07:27)
[2018-04-20] MEDS: ASPIRIN 81 MG TAB.CHEW PO SCH (07:28)
[2018-04-20] MEDS: DOCUSATE SODIUM 100 MG CAPSULE PO SCH ×2 (07:29→21:25)
[2018-04-20] MEDS: MAGNESIUM OXIDE 400 MG TABLET PO SCH ×2 (07:29→21:25)
[2018-04-20] MEDS: FLUTICASONE 50MCG/NASAL SPRAY 16GM BOTTLE. NS SCH (07:36)
[2018-04-20] MEDS: NYSTATIN TOPICAL POWDER 15GM BOTTLE. TP SCH ×2 (07:36→21:00)
[2018-04-20] MEDS: SERTRALINE 25 MG TABLET. PO SCH (08:27)
[2018-04-20 15:52] VITALS: BP 159/81
[2018-04-20] MEDS: traZODone 50 MG TABLET. PO SCH ×2 (16:40→21:24)
[2018-04-20] MEDS: CARBIDOPA/LEVODOPA CR 50/200MG TABLET.SA PO SCH (21:23)
[2018-04-20] MEDS: MELATONIN 3 MG TABLET PO SCH (21:23)
[2018-04-20] MEDS: QUEtiapine 100 MG TABLET. PO SCH (21:25)
[2018-04-20] MEDS: PRAMIPEXOLE 0.25 MG TABLET. PO SCH (21:25)
[2018-04-20] MEDS: DIVALPROEX SODIUM 250 MG TABLET.DR. PO SCH (21:25)
--- NOTE | 2018-04-20 23:10 | PDOC ---
Exam Note: Сергей Note: Please also refer to the separate dictated note~for this date of service dictated separately.~Patient seen individually. Discussed the patient with Nursing staff reviewed the chart.~Reviewed interim history and current functioning. Reviewed vital signs,~Labs/ Radiology~and current medications noted below. Continue current treatment with the changes noted in the dictated addendum note Assessment: Vital Signs: Vital Signs Date Time Temp Pulse Resp B/P (MAP) Pulse Ox O2 Delivery O2 Flow Rate FiO2 04/20/18 15:52 98.0 72 18 159/81 (107) 97 Room Air I&O Intake and Output 04/20/18 07:00 Intake Total 1790 ml Balance 1790 ml Intake Oral 1790 ml # Voids 4 # Bowel Movements 2 Current Medications: Meds: Current Medications Acetaminophen (Tylenol) 650 mg PRN Q6HRS PRN PO PAIN / TEMP Last administered on 04/19/18at 02:05; Start 04/13/18 at 00:30 Multi-Ingredient Ointment (Analgesic [place]) 1 juan PRN QID PRN TP MUSCLE PAIN; Start 04/13/18 at 00:30 Al Hydroxide/Mg Hydroxide (Mylanta Plus Xs) 15 ml PRN AFTMEALHC PRN PO DYSPEPSIA; Start 04/13/18 at 00:30 Magnesium Hydroxide (Milk Of Magnesia) 2,400 mg PRN QHS PRN PO CONSTIPATION; Start 04/13/18 at 00:30 Olanzapine (ZyPREXA ZYDIS) 5 mg PRN Q2HR PRN PO ANXIETY / AGITATION Last administered on 04/19/18at 17:05; Start 04/13/18 at 02:00 Citalopram Hydrobromide (CeleXA) 40 mg DAILY PO Last administered on at 07:59; Start 04/13/18 at 09:00; Stop 04/16/18 at 16:42; Status DC Diazepam (Valium) 2 mg PRN Q6HRS PRN PO ANXIETY Last administered on 04/18/18at 00:21; Start 04/13/18 at 02:00 Divalproex Sodium (Depakote) 1,500 mg HS PO Last administered on 04/20/18at 21: 25; Start 04/13/18 at 21:00 Melatonin 3 mg HS PO Last administered on 04/20/18at 21:23; Start 04/13/18 at 21:00 Memantine (Namenda) 5 mg BIDWMEALS PO Last administered on 04/16/18at 08:00; Start 04/13/18 at 08:00; Stop 04/16/18 at 16:42; Status DC Quetiapine Fumarate (SEROquel) 25 mg QHS PO Last administered on 04/16/18 19: 43; Start 04/13/18 at 21:00; Stop 04/17/18 at 16:51; Status DC Rivastigmine (Exelon) 1 patch DAILY TD Last administered on 04/16/18 08:05; Start 04/13/18 at 09:00; Stop 04/16/18 at 16:42; Status DC Trazodone HCl (Desyrel) 25 mg DAILYWSUP PO Last administered on 04/20/18 16:40 ; Start 04/13/18 at 17:00 Trazodone HCl (Desyrel) 75 mg QHS PO Last administered on 04/20/18 21:24; Start 04/13/18 at 21:00 Ascorbic Acid (Vitamin C) 500 mg DAILY PO Last administered on 04/20/18 07:27 ; Start 04/13/18 at 09:00 Carbidopa/Levodopa (Sinemet 25/100) 0.5 tab Q2HR W/A PO Last administered on 04/20/18at 18:16; Start 04/13/18 at 06:00 Vitamin D (Vitamin D3) 50,000 unit WEEKLY PO Last administered on 04/20/18 07: 27; Start 04/13/18 at 09:00 Diclofenac Sodium (Voltaren) 1 juan PRN TID PRN TP MUSCLE PAIN; Start 04/13/18 at 02:00 Ferrous Sulfate (Feosol) 650 mg DAILY06 PO Last administered on 04/20/18 05:11 ; Start 04/13/18 at 06:00 Ibuprofen (Motrin) 600 mg PRN BID PRN PO PAIN Last administered on 04/19/18at 10 :07; Start 04/13/18 at 02:00 Linaclotide (Linzess) 145 mcg DAILY PO Last administered on 04/20/18at 07:27; Start 04/13/18 at 09:00 Nystatin (Nystop) 1 juan BID TP Last administered on 04/20/18 21:00; Start at 09:00 Aspirin (Children'S Aspirin) 81 mg DAILY PO Last administered on 04/20/18 07: 28; Start 04/13/18 at 09:00 Carbidopa/Levodopa (Sinemet Cr) 1 tab.sa HS PO Last administered on 04/20/18 21:23; Start 04/13/18 at 21:00 Docusate Sodium (Colace) 100 mg BID PO Last administered on 04/20/18 21:25; Start 04/13/18 at 09:00 Doxycycline Hyclate (Vibra-Tab) 100 mg BID PO Last administered on 04/20/18 21 :25; Start 04/13/18 at 09:00 Fluticasone Propionate (Flonase) 2 spray DAILY NS Last administered on 07:36; Start 04/13/18 at 09:00 Hydrocortisone (Cortaid) 1 juan PRN BID PRN TP RASH; Start 04/13/18 at 02:00 Lactobacillus Rhamnosus (Culturelle) 1 cap BID PO Last administered on 21:25; Start 04/13/18 at 09:00 Lactulose (Lactulose) 15 gm DAILYWBKFT PO Last administered on 04/20/18 07:26 ; Start 04/13/18 at 08:00 Magnesium Oxide (Magnesium Oxide) 400 mg BID PO Last administered on 04/20/18 21:25; Start 04/13/18 at 09:00 Metformin HCl (Glucophage Xr) 1,000 mg DAILYWBKFT PO Last administered on 07:27; Start 04/13/18 at 08:00 Miconazole Nitrate (Monistat-Derm) 1 juan PRN BID PRN TP RASH; Start 04/13/18 at 02:00 Multivitamins/ Calcium (Thera-M Plus) 1 tab DAILY PO Last administered on 07:27; Start 04/13/18 at 09:00 Pramipexole Dihydrochloride (miraPEX) 0.5 mg HS PO Last administered on 21:25; Start 04/13/18 at 21:00 Pravastatin Sodium (Pravachol) 40 mg DAILY PO Last administered on 04/20/18at 07 :27; Start 04/13/18 at 09:00 Memantine (Namenda) 10 mg BIDWMEALS PO Last administered on 04/20/18at 16:40; Start 04/16/18 at 17:00 Sertraline HCl (Zoloft) 50 mg DAILY PO Last administered on 04/19/18at 08:15; Start 04/17/18 at 09:00; Stop 04/20/18 at 05:00; Status DC Rivastigmine (Exelon) 1 patch DAILY TD Last administered on 04/20/18at 07:26; Start 04/17/18 at 09:00 Sertraline HCl (Zoloft) 50 mg STK-MED ONCE .ROUTE ; Start 04/17/18 at 07:29; Stop 04/17/18 at 07:30; Status DC Quetiapine Fumarate (SEROquel) 50 mg QHS PO Last administered on 04/18/18at 19: 46; Start 04/17/18 at 21:00; Stop 04/19/18 at 08:01; Status DC Quetiapine Fumarate (SEROquel) 100 mg QHS PO Last administered on 04/20/18at 21: 25; Start 04/19/18 at 21:00 Sertraline HCl (Zoloft) 75 mg DAILY PO Last administered on 04/20/18at 08:27; Start 04/20/18 at 09:00 Active Scripts Active Reported Doxycycline Hyclate 100 Mg Tablet.dr 100 Mg PO BID Mag-Al Plus Xs Suspension (Mag Hydrox/Al Hydrox/Simeth) 30 Ml Oral.susp 15 Ml PO PRN AFTMEALHC PRN Lactulose 10 Gm/15 Ml Solution 15 Gm PO DAILYWBKFT EXELON 4.6mg/24hr (Rivastigmine) 1 Each Patch.td24 1 Patch TP DAILY Seroquel (Quetiapine Fumarate) 25 Mg Tablet 1 Tab PO QHS Zyprexa Zydis (Olanzapine) 5 Mg Tab.rapdis 5 Mg PO PRN Q2HR PRN Analgesic [place] (Methyl Salicylate/Menthol) 28 Gm Oint...g. 1 Juan TP QID PRN Namenda (Memantine Hcl) 10 Mg Tablet 0.5 Tab PO BIDWMEALS Melatonin 3 Mg Tablet 1 Tab PO QHS Culturelle (Lactobacillus Rhamnosus Gg) 1 Each Capsule 1 Each PO BID Celexa (Citalopram Hydrobromide) 40 Mg Tablet 40 Mg PO DAILY Glucophage Xr (Metformin Hcl) 500 Mg Tab.er.24h 2 Tab PO DAILYWBKFT Nystatin 15 Gm Powder 1 Juan TP BID Milk Of Magnesia (Magnesium Hydroxide) 2,400 Mg/10 Ml Oral.susp 2,400 Mg PO HS PRN Voltaren (Diclofenac Sodium) 100 Gm Gel..gram. 1 Juan TP PRN TID PRN FOR NECK PAIN Vitamin D3 (Cholecalciferol (Vitamin D3)) 50,000 Unit Capsule 50,000 Unit PO WEEKLY Tylenol (Acetaminophen) 325 Mg Tablet 2 Tab PO PRN Q6HRS PRN Pravastatin Sodium 40 Mg Tablet 40 Mg PO DAILY Carbidopa-Levo Er 50-200 Tab (Carbidopa/Levodopa) 1 Each Tablet.er 1 Each PO HS Sinemet 25-100 Mg Tablet (Carbidopa/Levodopa) 1 Each Tablet 0.5 Tab PO Q2HR W/A Diazepam 2 Mg Tablet 2 Mg PO PRN Q6HRS PRN Mirapex (Pramipexole Di-Hcl) 0.25 Mg Tablet 0.5 Mg PO HS Linzess (Linaclotide) 145 Mcg Capsule 145 Mcg PO DAILY Trazodone Hcl 50 Mg Tablet 75 Mg PO HS Divalproex Sodium 500 Mg Tablet.dr 1,500 Mg PO HS Hydrocortisone 453.6 Gm Cream..g. 1 Juan TP PRN BID PRN Ferrous Sulfate 325 Mg Tablet 650 Mg PO DAILY06 Magnesium Oxide 400 Mg Tablet 400 Mg PO BID Miconazole Nitrate 45 Gm Cream.appl 1 Juan TP PRN BID PRN Aspirin 81 Mg Tab.chew 81 Mg PO DAILY Ibuprofen 400 Mg Tablet 600 Mg PO PRN BID PRN Docusate Sodium 100 Mg Capsule 100 Mg PO BID Fluticasone Propionate Nasal [place] (Fluticasone Propionate) 16 Gm [place].susp 2 [place] NS DAILY Multivitamins (Multivitamin) 1 Each Tablet 1 Tab PO DAILY Trazodone Hcl 50 Mg Tablet 25 Mg PO DAILYWSUP Ascorbic Acid 500 Mg Tablet 500 Mg PO DAILY I have reviewed the current psychotropics carefully including drug interactions. Risk benefit ratio favors no change other than as noted in my dictated progress note. Diagnosis: Problems: (1) Anxiety disorder (2) Lewy body dementia with behavioral disturbance (3) Impulse control disorder (4) Personality disorder in adult SAY PRUETT MD Apr 20, 2018 23:10
[2018-04-20] MEDS: diazePAM 2 MG TABLET PO PRN (23:13)
[2018-04-21] MEDS: IBUPROFEN 600 MG TABLET. PO PRN ×3 (03:13→18:15)
[2018-04-21] MEDS: FERROUS SULFATE 325 MG TABLET. PO SCH (05:06)
[2018-04-21] MEDS: CARBIDOPA/LEVODOPA 25/100MG TABLET PO SCH ×9 (05:06→22:00)
[2018-04-21 06:06] VITALS: BP 132/85
[2018-04-21] MEDS: LINACLOTIDE 145 MCG CAPSULE. PO SCH (07:38)
[2018-04-21] MEDS: PRAVASTATIN 20 MG TABLET. PO SCH (07:38)
[2018-04-21] MEDS: DOCUSATE SODIUM 100 MG CAPSULE PO SCH ×2 (07:38→19:38)
[2018-04-21] MEDS: DOXYCYCLINE HYCLATE 100 MG TABLET PO SCH ×2 (07:39→19:36)
[2018-04-21] MEDS: metFORMIN XR 500 MG TAB.ER.24H PO SCH (07:39)
[2018-04-21] MEDS: MEMANTINE 10 MG TABLET. PO SCH ×2 (07:39→17:12)
[2018-04-21] MEDS: ASCORBIC ACID 500 MG TABLET PO SCH (07:39)
[2018-04-21] MEDS: MAGNESIUM OXIDE 400 MG TABLET PO SCH ×2 (07:39→19:37)
[2018-04-21] MEDS: SERTRALINE 25 MG TABLET. PO SCH (07:39)
[2018-04-21] MEDS: RIVASTIGMINE 9.5MG PATCH. TD SCH (07:40)
[2018-04-21] MEDS: LACTOBACILLUS RHAMNOSUS GG 1 CAPSULE. PO SCH ×2 (07:40→19:36)
[2018-04-21] MEDS: MULTIVITAMIN with MINERAL TABLET. PO SCH (07:40)
[2018-04-21] MEDS: ASPIRIN 81 MG TAB.CHEW PO SCH (07:40)
[2018-04-21] MEDS: LACTULOSE 20 GM/30 ML SOLUTION. PO SCH (07:41)
[2018-04-21] MEDS: NYSTATIN TOPICAL POWDER 15GM BOTTLE. TP SCH ×2 (07:46→19:39)
[2018-04-21] MEDS: FLUTICASONE 50MCG/NASAL SPRAY 16GM BOTTLE. NS SCH (07:46)
[2018-04-21 15:47] VITALS: BP 139/78
--- NOTE | 2018-04-21 16:26 | PN ---
DATE: 04/19/2018 This is a late entry for date of service 04/19/2018 and covers elements not covered in my initial note. SUBJECTIVE: I met with the patient at length in the evening. The patient slept 5-1/4 hours previous night. He has been restless, had a lengthy discussion, complaining of sudden male staff members that he does not want to assist him in his cares as he feels they are not patient enough with him, they are too young for him. Nursing staff is aware of this. Otherwise, he is better, more appropriate. No suicidal ideation, takes his medications whole, has been spending time in the day room. REVIEW OF SYSTEMS: Ambulation impaired, in wheelchair. No CV, , pulmonary, eye, ENT system symptoms on review. MENTAL STATUS EXAM: Reasonably oriented. Speech is coherent, at times pressured. Abstraction fair, computation impaired, language function intact, quite anxious, somewhat obsessive. LABORATORY DATA: Reviewed. IMPRESSION: Bipolar 1 disorder, unspecified; major neurocognitive disorder, possibly early Lewy body with delusions, anxiety disorder, unspecified. PLAN: Continue psychotropics from initial note. He remains on one-on-one status. We will reassess after he has been stable with no suicidal ideation for some time. SAY PRUETT MD DR: MARCEL/nano JOB#: [id number] / [id number]
[2018-04-21] MEDS: traZODone 50 MG TABLET. PO SCH ×2 (17:12→19:37)
[2018-04-21] MEDS: CARBIDOPA/LEVODOPA CR 50/200MG TABLET.SA PO SCH (19:36)
[2018-04-21] MEDS: MELATONIN 3 MG TABLET PO SCH (19:38)
[2018-04-21] MEDS: DIVALPROEX SODIUM 250 MG TABLET.DR. PO SCH (19:39)
[2018-04-21] MEDS: QUEtiapine 100 MG TABLET. PO SCH (19:39)
[2018-04-21] MEDS: PRAMIPEXOLE 0.25 MG TABLET. PO SCH (19:42)
--- NOTE | 2018-04-21 23:03 | PDOC ---
Exam Note: Сергей Note: Please also refer to the separate dictated note~for this date of service dictated separately.~Patient seen individually. Discussed the patient with Nursing staff reviewed the chart.~Reviewed interim history and current functioning. Reviewed vital signs,~Labs/ Radiology~and current medications noted below. Continue current treatment with the changes noted in the dictated addendum note Assessment: Vital Signs: Vital Signs Date Time Temp Pulse Resp B/P (MAP) Pulse Ox O2 Delivery O2 Flow Rate FiO2 04/21/18 15:47 97.3 65 18 139/78 (98) 100 Room Air I&O Intake and Output 04/21/18 07:00 Intake Total 1080 ml Balance 1080 ml Intake Oral 1080 ml # Bowel Movements 1 Current Medications: Meds: Current Medications Acetaminophen (Tylenol) 650 mg PRN Q6HRS PRN PO PAIN / TEMP Last administered on 04/19/18at 02:05; Start 04/13/18 at 00:30 Multi-Ingredient Ointment (Analgesic [place]) 1 juan PRN QID PRN TP MUSCLE PAIN; Start 04/13/18 at 00:30 Al Hydroxide/Mg Hydroxide (Mylanta Plus Xs) 15 ml PRN AFTMEALHC PRN PO DYSPEPSIA; Start 04/13/18 at 00:30 Magnesium Hydroxide (Milk Of Magnesia) 2,400 mg PRN QHS PRN PO CONSTIPATION; Start 04/13/18 at 00:30 Olanzapine (ZyPREXA ZYDIS) 5 mg PRN Q2HR PRN PO ANXIETY / AGITATION Last administered on 04/19/18at 17:05; Start 04/13/18 at 02:00 Citalopram Hydrobromide (CeleXA) 40 mg DAILY PO Last administered on at 07:59; Start 04/13/18 at 09:00; Stop 04/16/18 at 16:42; Status DC Diazepam (Valium) 2 mg PRN Q6HRS PRN PO ANXIETY Last administered on 04/20/18 23:13; Start 04/13/18 at 02:00 Divalproex Sodium (Depakote) 1,500 mg HS PO Last administered on 04/21/18 19: 39; Start 04/13/18 at 21:00 Melatonin 3 mg HS PO Last administered on 04/21/18 19:38; Start 04/13/18 at 21:00 Memantine (Namenda) 5 mg BIDWMEALS PO Last administered on 04/16/18 08:00; Start 04/13/18 at 08:00; Stop 04/16/18 at 16:42; Status DC Quetiapine Fumarate (SEROquel) 25 mg QHS PO Last administered on 04/16/18 19: 43; Start 04/13/18 at 21:00; Stop 04/17/18 at 16:51; Status DC Rivastigmine (Exelon) 1 patch DAILY TD Last administered on 04/16/18 08:05; Start 04/13/18 at 09:00; Stop 04/16/18 at 16:42; Status DC Trazodone HCl (Desyrel) 25 mg DAILYWSUP PO Last administered on 04/21/18 17:12 ; Start 04/13/18 at 17:00 Trazodone HCl (Desyrel) 75 mg QHS PO Last administered on 04/21/18 19:37; Start 04/13/18 at 21:00 Ascorbic Acid (Vitamin C) 500 mg DAILY PO Last administered on 04/21/18 07:39 ; Start 04/13/18 at 09:00 Carbidopa/Levodopa (Sinemet 25/100) 0.5 tab Q2HR W/A PO Last administered on 04/21/18 17:15; Start 04/13/18 at 06:00 Vitamin D (Vitamin D3) 50,000 unit WEEKLY PO Last administered on 04/20/18 07: 27; Start 04/13/18 at 09:00 Diclofenac Sodium (Voltaren) 1 juan PRN TID PRN TP MUSCLE PAIN; Start 04/13/18 at 02:00 Ferrous Sulfate (Feosol) 650 mg DAILY06 PO Last administered on 04/21/18 05:06 ; Start 04/13/18 at 06:00 Ibuprofen (Motrin) 600 mg PRN BID PRN PO PAIN Last administered on 04/21/18 18 :15; Start 04/13/18 at 02:00 Linaclotide (Linzess) 145 mcg DAILY PO Last administered on 04/21/18 07:38; Start 04/13/18 at 09:00 Nystatin (Nystop) 1 juan BID TP Last administered on 04/21/18 19:39; Start at 09:00 Aspirin (Children'S Aspirin) 81 mg DAILY PO Last administered on 04/21/18 07: 40; Start 04/13/18 at 09:00 Carbidopa/Levodopa (Sinemet Cr) 1 tab.sa HS PO Last administered on 04/21/18 19:36; Start 04/13/18 at 21:00 Docusate Sodium (Colace) 100 mg BID PO Last administered on 04/21/18 19:38; Start 04/13/18 at 09:00 Doxycycline Hyclate (Vibra-Tab) 100 mg BID PO Last administered on 04/21/18 19 :36; Start 04/13/18 at 09:00; Stop 04/22/18 at 08:59 Fluticasone Propionate (Flonase) 2 spray DAILY NS Last administered on 07:46; Start 04/13/18 at 09:00 Hydrocortisone (Cortaid) 1 juan PRN BID PRN TP RASH; Start 04/13/18 at 02:00 Lactobacillus Rhamnosus (Culturelle) 1 cap BID PO Last administered on 19:36; Start 04/13/18 at 09:00 Lactulose (Lactulose) 15 gm DAILYWBKFT PO Last administered on 04/21/18 07:41 ; Start 04/13/18 at 08:00 Magnesium Oxide (Magnesium Oxide) 400 mg BID PO Last administered on 04/21/18 19:37; Start 04/13/18 at 09:00 Metformin HCl (Glucophage Xr) 1,000 mg DAILYWBKFT PO Last administered on 07:39; Start 04/13/18 at 08:00 Miconazole Nitrate (Monistat-Derm) 1 juan PRN BID PRN TP RASH; Start 04/13/18 at 02:00 Multivitamins/ Calcium (Thera-M Plus) 1 tab DAILY PO Last administered on 07:40; Start 04/13/18 at 09:00 Pramipexole Dihydrochloride (miraPEX) 0.5 mg HS PO Last administered on 19:42; Start 04/13/18 at 21:00 Pravastatin Sodium (Pravachol) 40 mg DAILY PO Last administered on 04/21/18at 07 :38; Start 04/13/18 at 09:00 Memantine (Namenda) 10 mg BIDWMEALS PO Last administered on 04/21/18at 17:12; Start 04/16/18 at 17:00 Sertraline HCl (Zoloft) 50 mg DAILY PO Last administered on 04/19/18at 08:15; Start 04/17/18 at 09:00; Stop 04/20/18 at 05:00; Status DC Rivastigmine (Exelon) 1 patch DAILY TD Last administered on 04/21/18at 07:40; Start 04/17/18 at 09:00 Sertraline HCl (Zoloft) 50 mg STK-MED ONCE .ROUTE ; Start 04/17/18 at 07:29; Stop 04/17/18 at 07:30; Status DC Quetiapine Fumarate (SEROquel) 50 mg QHS PO Last administered on 04/18/18at 19: 46; Start 04/17/18 at 21:00; Stop 04/19/18 at 08:01; Status DC Quetiapine Fumarate (SEROquel) 100 mg QHS PO Last administered on 04/21/18at 19: 39; Start 04/19/18 at 21:00 Sertraline HCl (Zoloft) 75 mg DAILY PO Last administered on 04/21/18at 07:39; Start 04/20/18 at 09:00 Active Scripts Active Reported Doxycycline Hyclate 100 Mg Tablet.dr 100 Mg PO BID Mag-Al Plus Xs Suspension (Mag Hydrox/Al Hydrox/Simeth) 30 Ml Oral.susp 15 Ml PO PRN AFTMEALHC PRN Lactulose 10 Gm/15 Ml Solution 15 Gm PO DAILYWBKFT EXELON 4.6mg/24hr (Rivastigmine) 1 Each Patch.td24 1 Patch TP DAILY Seroquel (Quetiapine Fumarate) 25 Mg Tablet 1 Tab PO QHS Zyprexa Zydis (Olanzapine) 5 Mg Tab.rapdis 5 Mg PO PRN Q2HR PRN Analgesic [place] (Methyl Salicylate/Menthol) 28 Gm Oint...g. 1 Juan TP QID PRN Namenda (Memantine Hcl) 10 Mg Tablet 0.5 Tab PO BIDWMEALS Melatonin 3 Mg Tablet 1 Tab PO QHS Culturelle (Lactobacillus Rhamnosus Gg) 1 Each Capsule 1 Each PO BID Celexa (Citalopram Hydrobromide) 40 Mg Tablet 40 Mg PO DAILY Glucophage Xr (Metformin Hcl) 500 Mg Tab.er.24h 2 Tab PO DAILYWBKFT Nystatin 15 Gm Powder 1 Juan TP BID Milk Of Magnesia (Magnesium Hydroxide) 2,400 Mg/10 Ml Oral.susp 2,400 Mg PO HS PRN Voltaren (Diclofenac Sodium) 100 Gm Gel..gram. 1 Juan TP PRN TID PRN FOR NECK PAIN Vitamin D3 (Cholecalciferol (Vitamin D3)) 50,000 Unit Capsule 50,000 Unit PO WEEKLY Tylenol (Acetaminophen) 325 Mg Tablet 2 Tab PO PRN Q6HRS PRN Pravastatin Sodium 40 Mg Tablet 40 Mg PO DAILY Carbidopa-Levo Er 50-200 Tab (Carbidopa/Levodopa) 1 Each Tablet.er 1 Each PO HS Sinemet 25-100 Mg Tablet (Carbidopa/Levodopa) 1 Each Tablet 0.5 Tab PO Q2HR W/A Diazepam 2 Mg Tablet 2 Mg PO PRN Q6HRS PRN Mirapex (Pramipexole Di-Hcl) 0.25 Mg Tablet 0.5 Mg PO HS Linzess (Linaclotide) 145 Mcg Capsule 145 Mcg PO DAILY Trazodone Hcl 50 Mg Tablet 75 Mg PO HS Divalproex Sodium 500 Mg Tablet.dr 1,500 Mg PO HS Hydrocortisone 453.6 Gm Cream..g. 1 Juan TP PRN BID PRN Ferrous Sulfate 325 Mg Tablet 650 Mg PO DAILY06 Magnesium Oxide 400 Mg Tablet 400 Mg PO BID Miconazole Nitrate 45 Gm Cream.appl 1 Juan TP PRN BID PRN Aspirin 81 Mg Tab.chew 81 Mg PO DAILY Ibuprofen 400 Mg Tablet 600 Mg PO PRN BID PRN Docusate Sodium 100 Mg Capsule 100 Mg PO BID Fluticasone Propionate Nasal [place] (Fluticasone Propionate) 16 Gm [place].susp 2 [place] NS DAILY Multivitamins (Multivitamin) 1 Each Tablet 1 Tab PO DAILY Trazodone Hcl 50 Mg Tablet 25 Mg PO DAILYWSUP Ascorbic Acid 500 Mg Tablet 500 Mg PO DAILY I have reviewed the current psychotropics carefully including drug interactions. Risk benefit ratio favors no change other than as noted in my dictated progress note. Diagnosis: Problems: (1) Anxiety disorder (2) Lewy body dementia with behavioral disturbance (3) Impulse control disorder (4) Personality disorder in adult SAY PRUETT MD Apr 21, 2018 23:03
[2018-04-22] MEDS: FERROUS SULFATE 325 MG TABLET. PO SCH (05:17)
[2018-04-22] MEDS: CARBIDOPA/LEVODOPA 25/100MG TABLET PO SCH ×9 (05:17→22:00)
[2018-04-22 06:10] VITALS: BP 158/98
[2018-04-22 07:36] LABS: BASO # 0.1 x10^3/uL (0.0-0.2); BASO % 1 % (0-3); EOS # 0.3 x10^3/uL (0.0-0.7); EOS % 5 % (0-3); HEMATOCRIT 37.9 % (39.0-53.0); HEMOGLOBIN 12.7 g/dL (13.0-17.5); LYMPH # 1.4 x10^3/uL (1.0-4.8); LYMPH % 19 % (24-48); MEAN CORPUSCULAR HEMOGLOBIN 31 pg (25-35); MEAN CORPUSCULAR HGB CONC 33 g/dL (31-37); MEAN CORPUSCULAR VOLUME 92 fL (79-100); MONO # 0.7 x10^3/uL (0.0-1.1); MONO % 10 % (0-9); NEUT # 4.7 x10^3uL (1.8-7.7); NEUT % 65 % (31-73); PLATELET COUNT 244 x10^3/uL (140-400); RED BLOOD COUNT 4.13 x10^6/uL (4.30-5.70); RED CELL DISTRIBUTION WIDTH 13.9 % (11.5-14.5); WHITE BLOOD COUNT 7.2 x10^3/uL (4.0-11.0)
[2018-04-22 07:48] LABS: ALBUMIN 2.9 g/dL (3.4-5.0); ALBUMIN/GLOBULIN RATIO 0.9 (1.0-1.7); CALCIUM 8.6 mg/dL (8.5-10.1); CREATININE 0.8 mg/dL (0.7-1.3); GFR 96.7; POTASSIUM 4.2 mmol/L (3.5-5.1); TOTAL BILIRUBIN 0.4 mg/dL (0.2-1.0); TOTAL PROTEIN 6.3 g/dL (6.4-8.2)
[2018-04-22] MEDS: MAGNESIUM OXIDE 400 MG TABLET PO SCH ×2 (07:51→20:25)
[2018-04-22] MEDS: MULTIVITAMIN with MINERAL TABLET. PO SCH (07:51)
[2018-04-22] MEDS: ASPIRIN 81 MG TAB.CHEW PO SCH (07:51)
[2018-04-22] MEDS: RIVASTIGMINE 9.5MG PATCH. TD SCH (07:51)
[2018-04-22] MEDS: DOCUSATE SODIUM 100 MG CAPSULE PO SCH ×2 (07:51→20:25)
[2018-04-22] MEDS: metFORMIN XR 500 MG TAB.ER.24H PO SCH (07:51)
[2018-04-22] MEDS: LACTOBACILLUS RHAMNOSUS GG 1 CAPSULE. PO SCH ×2 (07:51→20:25)
[2018-04-22] MEDS: MEMANTINE 10 MG TABLET. PO SCH ×2 (07:52→16:58)
[2018-04-22] MEDS: SERTRALINE 25 MG TABLET. PO SCH (07:52)
[2018-04-22] MEDS: ASCORBIC ACID 500 MG TABLET PO SCH (07:53)
[2018-04-22] MEDS: PRAVASTATIN 20 MG TABLET. PO SCH (07:53)
[2018-04-22] MEDS: LACTULOSE 20 GM/30 ML SOLUTION. PO SCH (07:56)
[2018-04-22] MEDS: FLUTICASONE 50MCG/NASAL SPRAY 16GM BOTTLE. NS SCH (07:56)
[2018-04-22] MEDS: LINACLOTIDE 145 MCG CAPSULE. PO SCH (08:03)
[2018-04-22] MEDS: NYSTATIN TOPICAL POWDER 15GM BOTTLE. TP SCH ×2 (08:03→20:27)
[2018-04-22 09:19] LABS: % BASOS 1 % (0-3); % EOS 5 % (0-5); % LYMPHS 22 % (24-48); % METAS 1 % (0-0); % MONOS 6 % (0-10); % MYELOS 1 % (0-0); % SEGS 64 % (35-66)
[2018-04-22 09:20] LABS: PLT ESTIMATE ADEQUATE (ADEQUATE); POLYCHROMASIA PRESENT
[2018-04-22 09:21] LABS: TOXIC GRANULATION PRESENT
[2018-04-22 15:07] VITALS: BP 149/97
[2018-04-22] MEDS: traZODone 50 MG TABLET. PO SCH ×2 (16:58→20:27)
[2018-04-22] MEDS: CARBIDOPA/LEVODOPA CR 50/200MG TABLET.SA PO SCH (20:25)
[2018-04-22] MEDS: DIVALPROEX SODIUM 250 MG TABLET.DR. PO SCH (20:26)
[2018-04-22] MEDS: PRAMIPEXOLE 0.25 MG TABLET. PO SCH (20:26)
[2018-04-22] MEDS: QUEtiapine 100 MG TABLET. PO SCH (20:26)
[2018-04-22] MEDS: MELATONIN 3 MG TABLET PO SCH (20:26)
[2018-04-22] MEDS: ACETAMINOPHEN 325 MG TABLET PO PRN (20:28)
--- NOTE | 2018-04-22 23:07 | PDOC ---
Exam Note: Сергей Note: Please also refer to the separate dictated note~for this date of service dictated separately.~Patient seen individually. Discussed the patient with Nursing staff reviewed the chart.~Reviewed interim history and current functioning. Reviewed vital signs,~Labs/ Radiology~and current medications noted below. Continue current treatment with the changes noted in the dictated addendum note Assessment: Vital Signs: Vital Signs Date Time Temp Pulse Resp B/P (MAP) Pulse Ox O2 Delivery O2 Flow Rate FiO2 04/22/18 15:07 97.9 68 19 149/97 (114) 94 Room Air I&O Intake and Output 04/22/18 07:00 Intake Total 1200 ml Balance 1200 ml Intake Oral 1200 ml # Voids 1 Labs: Laboratory Tests Test 04/22/18 07:00 White Blood Count 7.2 x10^3/uL (4.0-11.0) Red Blood Count 4.13 x10^6/uL (4.30-5.70) L Hemoglobin 12.7 g/dL (13.0-17.5) L Hematocrit 37.9 % (39.0-53.0) L Mean Corpuscular Volume 92 fL (79-100) Mean Corpuscular Hemoglobin 31 pg (25-35) Mean Corpuscular Hemoglobin Concent 33 g/dL (31-37) Red Cell Distribution Width 13.9 % (11.5-14.5) Platelet Count 244 x10^3/uL (140-400) Neutrophils (%) (Auto) 65 % (31-73) Lymphocytes (%) (Auto) 19 % (24-48) L Monocytes (%) (Auto) 10 % (0-9) H Eosinophils (%) (Auto) 5 % (0-3) H Basophils (%) (Auto) 1 % (0-3) Neutrophils # (Auto) 4.7 x10^3uL (1.8-7.7) Lymphocytes # (Auto) 1.4 x10^3/uL (1.0-4.8) Monocytes # (Auto) 0.7 x10^3/uL (0.0-1.1) Eosinophils # (Auto) 0.3 x10^3/uL (0.0-0.7) Basophils # (Auto) 0.1 x10^3/uL (0.0-0.2) Segmented Neutrophils % 64 % (35-66) Lymphocytes % 22 % (24-48) L Monocytes % 6 % (0-10) Eosinophils % 5 % (0-5) Basophils % 1 % (0-3) Metamyelocytes % 1 % (0-0) H Myelocytes % 1 % (0-0) H Toxic Granulation Present Platelet Estimate Adequate (ADEQUATE) Polychromasia Present Sodium Level 136 mmol/L (136-145) Potassium Level 4.2 mmol/L (3.5-5.1) Chloride Level 99 mmol/L (98-107) Carbon Dioxide Level 33 mmol/L (21-32) H Anion Gap 4 (6-14) L Blood Urea Nitrogen 14 mg/dL (8-26) Creatinine 0.8 mg/dL (0.7-1.3) Estimated GFR (Cockcroft-Gault) 96.7 BUN/Creatinine Ratio 18 (6-20) Glucose Level 85 mg/dL (70-99) Calcium Level 8.6 mg/dL (8.5-10.1) Total Bilirubin 0.4 mg/dL (0.2-1.0) Aspartate Amino Transferase (AST) 13 U/L (15-37) L Alanine Aminotransferase (ALT) 14 U/L (16-63) L Alkaline Phosphatase 56 U/L (46-116) Total Protein 6.3 g/dL (6.4-8.2) L Albumin 2.9 g/dL (3.4-5.0) L Albumin/Globulin Ratio 0.9 (1.0-1.7) L Current Medications: Meds: Current Medications Acetaminophen (Tylenol) 650 mg PRN Q6HRS PRN PO PAIN / TEMP Last administered on 04/22/18at 20:28; Start 04/13/18 at 00:30 Multi-Ingredient Ointment (Analgesic [place]) 1 juan PRN QID PRN TP MUSCLE PAIN; Start 04/13/18 at 00:30 Al Hydroxide/Mg Hydroxide (Mylanta Plus Xs) 15 ml PRN AFTMEALHC PRN PO DYSPEPSIA; Start 04/13/18 at 00:30 Magnesium Hydroxide (Milk Of Magnesia) 2,400 mg PRN QHS PRN PO CONSTIPATION; Start 04/13/18 at 00:30 Olanzapine (ZyPREXA ZYDIS) 5 mg PRN Q2HR PRN PO ANXIETY / AGITATION Last administered on 04/19/18 17:05; Start 04/13/18 at 02:00 Citalopram Hydrobromide (CeleXA) 40 mg DAILY PO Last administered on 07:59; Start 04/13/18 at 09:00; Stop 04/16/18 at 16:42; Status DC Diazepam (Valium) 2 mg PRN Q6HRS PRN PO ANXIETY Last administered on 04/20/18 23:13; Start 04/13/18 at 02:00 Divalproex Sodium (Depakote) 1,500 mg HS PO Last administered on 04/22/18 20: 26; Start 04/13/18 at 21:00 Melatonin 3 mg HS PO Last administered on 04/22/18 20:26; Start 04/13/18 at 21:00 Memantine (Namenda) 5 mg BIDWMEALS PO Last administered on 04/16/18 08:00; Start 04/13/18 at 08:00; Stop 04/16/18 at 16:42; Status DC Quetiapine Fumarate (SEROquel) 25 mg QHS PO Last administered on 04/16/18 19: 43; Start 04/13/18 at 21:00; Stop 04/17/18 at 16:51; Status DC Rivastigmine (Exelon) 1 patch DAILY TD Last administered on 04/16/18 08:05; Start 04/13/18 at 09:00; Stop 04/16/18 at 16:42; Status DC Trazodone HCl (Desyrel) 25 mg DAILYWSUP PO Last administered on 04/22/18 16:58 ; Start 04/13/18 at 17:00 Trazodone HCl (Desyrel) 75 mg QHS PO Last administered on 04/22/18 20:27; Start 04/13/18 at 21:00 Ascorbic Acid (Vitamin C) 500 mg DAILY PO Last administered on 04/22/18 07:53 ; Start 04/13/18 at 09:00 Carbidopa/Levodopa (Sinemet 25/100) 0.5 tab Q2HR W/A PO Last administered on 04/22/18 22:00; Start 04/13/18 at 06:00 Vitamin D (Vitamin D3) 50,000 unit WEEKLY PO Last administered on 04/20/18 07: 27; Start 04/13/18 at 09:00 Diclofenac Sodium (Voltaren) 1 juan PRN TID PRN TP MUSCLE PAIN; Start 04/13/18 at 02:00 Ferrous Sulfate (Feosol) 650 mg DAILY06 PO Last administered on 04/22/18 05:17 ; Start 04/13/18 at 06:00 Ibuprofen (Motrin) 600 mg PRN BID PRN PO PAIN Last administered on 04/21/18 18 :15; Start 04/13/18 at 02:00 Linaclotide (Linzess) 145 mcg DAILY PO Last administered on 04/22/18 08:03; Start 04/13/18 at 09:00 Nystatin (Nystop) 1 juan BID TP Last administered on 04/22/18 20:27; Start at 09:00 Aspirin (Children'S Aspirin) 81 mg DAILY PO Last administered on 04/22/18 07: 51; Start 04/13/18 at 09:00 Carbidopa/Levodopa (Sinemet Cr) 1 tab.sa HS PO Last administered on 04/22/18 20:25; Start 04/13/18 at 21:00 Docusate Sodium (Colace) 100 mg BID PO Last administered on 04/22/18 20:25; Start 04/13/18 at 09:00 Doxycycline Hyclate (Vibra-Tab) 100 mg BID PO Last administered on 04/21/18 19 :36; Start 04/13/18 at 09:00; Stop 04/22/18 at 08:59; Status DC Fluticasone Propionate (Flonase) 2 spray DAILY NS Last administered on 07:56; Start 04/13/18 at 09:00 Hydrocortisone (Cortaid) 1 juan PRN BID PRN TP RASH; Start 04/13/18 at 02:00 Lactobacillus Rhamnosus (Culturelle) 1 cap BID PO Last administered on 20:25; Start 04/13/18 at 09:00 Lactulose (Lactulose) 15 gm DAILYWBKFT PO Last administered on 04/22/18 07:56 ; Start 04/13/18 at 08:00 Magnesium Oxide (Magnesium Oxide) 400 mg BID PO Last administered on 04/22/18 20:25; Start 04/13/18 at 09:00 Metformin HCl (Glucophage Xr) 1,000 mg DAILYWBKFT PO Last administered on at 07:51; Start 04/13/18 at 08:00 Miconazole Nitrate (Monistat-Derm) 1 juan PRN BID PRN TP RASH; Start 04/13/18 at 02:00 Multivitamins/ Calcium (Thera-M Plus) 1 tab DAILY PO Last administered on at 07:51; Start 04/13/18 at 09:00 Pramipexole Dihydrochloride (miraPEX) 0.5 mg HS PO Last administered on 20:26; Start 04/13/18 at 21:00 Pravastatin Sodium (Pravachol) 40 mg DAILY PO Last administered on 04/22/18at 07 :53; Start 04/13/18 at 09:00 Memantine (Namenda) 10 mg BIDWMEALS PO Last administered on 04/22/18 16:58; Start 04/16/18 at 17:00 Sertraline HCl (Zoloft) 50 mg DAILY PO Last administered on 04/19/18 08:15; Start 04/17/18 at 09:00; Stop 04/20/18 at 05:00; Status DC Rivastigmine (Exelon) 1 patch DAILY TD Last administered on 04/22/18at 07:51; Start 04/17/18 at 09:00 Sertraline HCl (Zoloft) 50 mg STK-MED ONCE .ROUTE ; Start 04/17/18 at 07:29; Stop 04/17/18 at 07:30; Status DC Quetiapine Fumarate (SEROquel) 50 mg QHS PO Last administered on 04/18/18at 19: 46; Start 04/17/18 at 21:00; Stop 04/19/18 at 08:01; Status DC Quetiapine Fumarate (SEROquel) 100 mg QHS PO Last administered on 04/22/18 20: 26; Start 04/19/18 at 21:00 Sertraline HCl (Zoloft) 75 mg DAILY PO Last administered on 04/22/18 07:52; Start 04/20/18 at 09:00 Active Scripts Active Reported Doxycycline Hyclate 100 Mg Tablet.dr 100 Mg PO BID Mag-Al Plus Xs Suspension (Mag Hydrox/Al Hydrox/Simeth) 30 Ml Oral.susp 15 Ml PO PRN AFTMEALHC PRN Lactulose 10 Gm/15 Ml Solution 15 Gm PO DAILYWBKFT EXELON 4.6mg/24hr (Rivastigmine) 1 Each Patch.td24 1 Patch TP DAILY Seroquel (Quetiapine Fumarate) 25 Mg Tablet 1 Tab PO QHS Zyprexa Zydis (Olanzapine) 5 Mg Tab.rapdis 5 Mg PO PRN Q2HR PRN Analgesic [place] (Methyl Salicylate/Menthol) 28 Gm Oint...g. 1 Juan TP QID PRN Namenda (Memantine Hcl) 10 Mg Tablet 0.5 Tab PO BIDWMEALS Melatonin 3 Mg Tablet 1 Tab PO QHS Culturelle (Lactobacillus Rhamnosus Gg) 1 Each Capsule 1 Each PO BID Celexa (Citalopram Hydrobromide) 40 Mg Tablet 40 Mg PO DAILY Glucophage Xr (Metformin Hcl) 500 Mg Tab.er.24h 2 Tab PO DAILYWBKFT Nystatin 15 Gm Powder 1 Juan TP BID Milk Of Magnesia (Magnesium Hydroxide) 2,400 Mg/10 Ml Oral.susp 2,400 Mg PO HS PRN Voltaren (Diclofenac Sodium) 100 Gm Gel..gram. 1 Juan TP PRN TID PRN FOR NECK PAIN Vitamin D3 (Cholecalciferol (Vitamin D3)) 50,000 Unit Capsule 50,000 Unit PO WEEKLY Tylenol (Acetaminophen) 325 Mg Tablet 2 Tab PO PRN Q6HRS PRN Pravastatin Sodium 40 Mg Tablet 40 Mg PO DAILY Carbidopa-Levo Er 50-200 Tab (Carbidopa/Levodopa) 1 Each Tablet.er 1 Each PO HS Sinemet 25-100 Mg Tablet (Carbidopa/Levodopa) 1 Each Tablet 0.5 Tab PO Q2HR W/A Diazepam 2 Mg Tablet 2 Mg PO PRN Q6HRS PRN Mirapex (Pramipexole Di-Hcl) 0.25 Mg Tablet 0.5 Mg PO HS Linzess (Linaclotide) 145 Mcg Capsule 145 Mcg PO DAILY Trazodone Hcl 50 Mg Tablet 75 Mg PO HS Divalproex Sodium 500 Mg Tablet.dr 1,500 Mg PO HS Hydrocortisone 453.6 Gm Cream..g. 1 Juan TP PRN BID PRN Ferrous Sulfate 325 Mg Tablet 650 Mg PO DAILY06 Magnesium Oxide 400 Mg Tablet 400 Mg PO BID Miconazole Nitrate 45 Gm Cream.appl 1 Juan TP PRN BID PRN Aspirin 81 Mg Tab.chew 81 Mg PO DAILY Ibuprofen 400 Mg Tablet 600 Mg PO PRN BID PRN Docusate Sodium 100 Mg Capsule 100 Mg PO BID Fluticasone Propionate Nasal [place] (Fluticasone Propionate) 16 Gm [place].susp 2 [place] NS DAILY Multivitamins (Multivitamin) 1 Each Tablet 1 Tab PO DAILY Trazodone Hcl 50 Mg Tablet 25 Mg PO DAILYWSUP Ascorbic Acid 500 Mg Tablet 500 Mg PO DAILY I have reviewed the current psychotropics carefully including drug interactions. Risk benefit ratio favors no change other than as noted in my dictated progress note. Diagnosis: Problems: (1) Anxiety disorder (2) Lewy body dementia with behavioral disturbance (3) Impulse control disorder (4) Personality disorder in adult SAY PRUETT MD Apr 22, 2018 23:07
--- NOTE | 2018-04-23 00:28 | PN ---
DATE: 04/21/2018 This late entry, 04/21/2018, covers elements not covered in my initial note. SUBJECTIVE: I met with the patient in the evening. The patient slept 4-1/2 hours previous evening. He remains somewhat anxious, labile, seems to have a dislike for certain male staff members who are on the shift commander and I addressed this with him. REVIEW OF SYSTEMS: Ambulation impaired, in wheelchair. No CV, , pulmonary, eye, ENT system symptoms on review. MENTAL STATUS EXAM: Reasonably oriented. Speech coherent, rapid at times, quite distractable, anxious, overly expressive, dramatic. Insight limited, judgment marginal, language function intact. Mood and affect remain somewhat anxious, labile. LABORATORY DATA: Reviewed. IMPRESSION: Bipolar 1 disorder, unspecified; possible Lewy body dementia, early with delusions; anxiety disorder, unspecified. PLAN: No change from initial note. Follow labs level on 04/22/2018. Adjust Depakote if it is subtherapeutic. MAN Rosa PRUETT MD DR: MARCEL/nano JOB#: [id number] / [id number]
[2018-04-23] MEDS: FERROUS SULFATE 325 MG TABLET. PO SCH ×2 (06:00→07:58)
[2018-04-23] MEDS: CARBIDOPA/LEVODOPA 25/100MG TABLET PO SCH ×9 (06:00→22:00)
[2018-04-23 06:15] VITALS: BP 135/78
[2018-04-23] MEDS: LINACLOTIDE 145 MCG CAPSULE. PO SCH (07:57)
[2018-04-23] MEDS: MULTIVITAMIN with MINERAL TABLET. PO SCH (07:57)
[2018-04-23] MEDS: LACTOBACILLUS RHAMNOSUS GG 1 CAPSULE. PO SCH ×2 (07:58→19:52)
[2018-04-23] MEDS: metFORMIN XR 500 MG TAB.ER.24H PO SCH (07:58)
[2018-04-23] MEDS: MEMANTINE 10 MG TABLET. PO SCH ×2 (07:58→17:00)
[2018-04-23] MEDS: PRAVASTATIN 20 MG TABLET. PO SCH (07:58)
[2018-04-23] MEDS: MAGNESIUM OXIDE 400 MG TABLET PO SCH ×2 (07:58→19:52)
[2018-04-23] MEDS: ASPIRIN 81 MG TAB.CHEW PO SCH (07:58)
[2018-04-23] MEDS: SERTRALINE 25 MG TABLET. PO SCH (07:58)
[2018-04-23] MEDS: ASCORBIC ACID 500 MG TABLET PO SCH (07:58)
[2018-04-23] MEDS: FLUTICASONE 50MCG/NASAL SPRAY 16GM BOTTLE. NS SCH (07:59)
[2018-04-23] MEDS: NYSTATIN TOPICAL POWDER 15GM BOTTLE. TP SCH ×2 (07:59→22:27)
[2018-04-23] MEDS: DOCUSATE SODIUM 100 MG CAPSULE PO SCH ×2 (07:59→19:53)
[2018-04-23] MEDS: LACTULOSE 20 GM/30 ML SOLUTION. PO SCH (07:59)
[2018-04-23] MEDS: RIVASTIGMINE 9.5MG PATCH. TD SCH (07:59)
[2018-04-23 11:32] LABS: VAL ACID 51 mcg/mL (50-100)
--- NOTE | 2018-04-23 12:57 | PN ---
DATE: 04/20/2018 This late entry 04/20/2018 covers elements not covered in my initial note. SUBJECTIVE: The patient is seen individually on evening of 04/20/2018. He slept 5-3/4 hours previous evening. He remains on one-on-one status, gets quite irritable at times, specifically when he is cared for by certain specific nursing staff. REVIEW OF SYSTEMS: Ambulation impaired, in wheelchair. No CV, , pulmonary, eye system symptoms on review. Reliability fair. MENTAL STATUS EXAM: Reasonably oriented. Speech is coherent, somewhat pressured at times, quite distractible, anxious. He remains somewhat paranoid of certain male staff members. No active suicidal or homicidal ideation. LABORATORY DATA: Reviewed. IMPRESSION: Bipolar 1 disorder, unspecified; major neurocognitive disorder, probably Lewy body early with delusions. Rest unchanged. PLAN: No change from a psychiatric standpoint. The patient is currently on one-on-one status, which we will maintain at least overnight and then reassess in the morning. Continue rest of the psychotropics. MAN Rosa PRUETT MD DR: MARCEL/nano JOB#: [id number] / [id number]
--- NOTE | 2018-04-23 14:49 | PN ---
DATE: 04/22/2018 PSYCHIATRIC PROGRESS NOTE This late entry, 04/22/2018, covers elements not covered in my initial note. SUBJECTIVE: I met with the patient in the evening at length. The patient remains on one-on-one status. Slept 3 hours previous night. Per nursing report, remains somewhat demanding, rude, sarcastic with nursing staff. AST and ALT unremarkable. We will check a valproic acid level, repeat on 04/23/2018 unless it could be done on the lab draw of 04/22/2018. REVIEW OF SYSTEMS: Ambulation impaired, in wheelchair. No CV, , pulmonary, eye, ENT system symptoms on review. MENTAL STATUS EXAM: Reasonably oriented. Speech coherent, rapid at times. He is somewhat distractible, anxious, shaking my hand very strongly almost hurting at times. He is extremely insistent verbal, wanting to get off on one-on-one status "the staff don't deserve this." He is stating staff spend a lot of time with him individually one-on-one and he is not suicidal. Apologizing repeatedly for the gesture for which he was placed initially on one-on-one status. Abstraction fair, computation one step serial 7. No active suicidal or homicidal ideation. Attention span is short. Language function is intact. LABORATORY DATA: Reviewed. IMPRESSION: Bipolar 1 disorder, unspecified, dementia, Lewy body early with delusions; anxiety disorder, unspecified; impulse control disorder, unspecified. PLAN: Continue current psychotropics from initial note, increase Seroquel from 100 mg at bedtime to 150 mg at bedtime. Rest unchanged from before. MAN Rosa PRUETT MD DR: MARCEL/nano JOB#: [id number] / [id number]
[2018-04-23 16:10] VITALS: BP 144/96
[2018-04-23] MEDS: traZODone 50 MG TABLET. PO SCH ×2 (17:00→19:52)
[2018-04-23] MEDS: PRAMIPEXOLE 0.25 MG TABLET. PO SCH (19:53)
[2018-04-23] MEDS: CARBIDOPA/LEVODOPA CR 50/200MG TABLET.SA PO SCH (19:53)
[2018-04-23] MEDS: MELATONIN 3 MG TABLET PO SCH (19:53)
[2018-04-23] MEDS: QUEtiapine 100 MG TABLET. PO SCH (19:54)
[2018-04-23] MEDS: DIVALPROEX SODIUM 250 MG TABLET.DR. PO SCH (19:55)
[2018-04-24] MEDS: ACETAMINOPHEN 325 MG TABLET PO PRN (02:29)
[2018-04-24] MEDS: CARBIDOPA/LEVODOPA 25/100MG TABLET PO SCH ×9 (05:48→22:00)
[2018-04-24 05:49] VITALS: BP 140/82
[2018-04-24] MEDS: SERTRALINE 25 MG TABLET. PO SCH (09:03)
[2018-04-24] MEDS: DOCUSATE SODIUM 100 MG CAPSULE PO SCH ×2 (09:03→20:21)
[2018-04-24] MEDS: ASPIRIN 81 MG TAB.CHEW PO SCH (09:03)
[2018-04-24] MEDS: LACTOBACILLUS RHAMNOSUS GG 1 CAPSULE. PO SCH ×2 (09:03→20:22)
[2018-04-24] MEDS: ASCORBIC ACID 500 MG TABLET PO SCH (09:04)
[2018-04-24] MEDS: PRAVASTATIN 20 MG TABLET. PO SCH (09:04)
[2018-04-24] MEDS: MULTIVITAMIN with MINERAL TABLET. PO SCH (09:04)
[2018-04-24] MEDS: MAGNESIUM OXIDE 400 MG TABLET PO SCH ×2 (09:04→20:23)
[2018-04-24] MEDS: MEMANTINE 10 MG TABLET. PO SCH ×2 (09:04→16:44)
[2018-04-24] MEDS: FERROUS SULFATE 325 MG TABLET. PO SCH (09:04)
[2018-04-24] MEDS: LINACLOTIDE 145 MCG CAPSULE. PO SCH (09:05)
[2018-04-24] MEDS: LACTULOSE 20 GM/30 ML SOLUTION. PO SCH (09:05)
[2018-04-24] MEDS: RIVASTIGMINE 9.5MG PATCH. TD SCH (09:05)
[2018-04-24] MEDS: FLUTICASONE 50MCG/NASAL SPRAY 16GM BOTTLE. NS SCH (09:05)
[2018-04-24] MEDS: NYSTATIN TOPICAL POWDER 15GM BOTTLE. TP SCH ×2 (09:06→21:57)
[2018-04-24] MEDS: metFORMIN XR 500 MG TAB.ER.24H PO SCH (09:09)
[2018-04-24 16:35] VITALS: BP 137/89
[2018-04-24] MEDS: traZODone 50 MG TABLET. PO SCH ×2 (16:44→20:22)
--- NOTE | 2018-04-24 19:35 | PN ---
DATE: 04/23/2018 PSYCHIATRIC PROGRESS NOTE This late entry 04/23/2018 covers elements not covered in my initial note. SUBJECTIVE: I met with the patient at length evening of 04/23/2018. The patient remains on one-on-one status because staff was concerned if he gets so impulsive, he may try and do something impulsively to try and hurt himself. He slept 4 hours previous night. He was put himself on the floor, refused to pick himself up until staff intervened. Valproic acid level is 51. Rest of the day, he had a good day. REVIEW OF SYSTEMS: Positive for impaired ambulation, in wheelchair. No CV, , pulmonary, eye, ENT system symptoms on review. MENTAL STATUS EXAM: The patient is reasonably oriented. Speech is coherent, somewhat rapid at times, quite intense. Abstraction fair, computation impaired, language function intact, attention span short. Mood and affect remain somewhat anxious, labile, but no active suicidal ideation as I questioned him. Discussed the patient at length with nursing staff, setting up a behavior modification protocol where he can be slowly taken off the one-on-one status in increments of 15 or 30 minutes each time depending on how he does for the previous. LABORATORY DATA: Reviewed. IMPRESSION: Bipolar 1 disorder, unspecified; major neurocognitive disorder, early Lewy body with delusion; anxiety disorder, unspecified; impulse control disorder, unspecified. PLAN: Continue psychotropics from initial note. Seroquel at bedtime has been increased from 100 mg to 150 mg. Rest unchanged. MAN Rosa PRUETT MD DR: MARCEL/nano JOB#: [id number] / [id number]
[2018-04-24] MEDS: MELATONIN 3 MG TABLET PO SCH (20:21)
[2018-04-24] MEDS: PRAMIPEXOLE 0.25 MG TABLET. PO SCH (20:21)
[2018-04-24] MEDS: DIVALPROEX SODIUM 250 MG TABLET.DR. PO SCH (20:22)
[2018-04-24] MEDS: CARBIDOPA/LEVODOPA CR 50/200MG TABLET.SA PO SCH (20:22)
[2018-04-24] MEDS: QUEtiapine 100 MG TABLET. PO SCH (20:22)
--- NOTE | 2018-04-24 22:40 | PDOC ---
Exam Note: Сергей Note: Late entry for DOS 04/23/2018. Please also refer to the separate dictated note~ for this date of service dictated separately.~Patient seen individually. Discussed the patient with Nursing staff reviewed the chart.~Reviewed interim history and current functioning. Reviewed vital signs,~Labs/ Radiology~and current medications noted below. Continue current treatment with the changes noted in the dictated addendum note Assessment: Vital Signs: VS - Last 72 Hours, by Label Date Time Temp Pulse Resp B/P (MAP) Pulse Ox O2 Delivery O2 Flow Rate FiO2 04/24/18 16:35 98.3 67 17 137/89 (105) 96 04/24/18 05:49 98.2 60 20 140/82 (101) 93 04/23/18 16:10 98.6 65 20 144/96 (112) 93 Room Air 04/23/18 06:15 97.3 50 20 135/78 (97) 91 Room Air 04/22/18 15:07 97.9 68 19 149/97 (114) 94 Room Air 04/22/18 06:10 97.0 56 24 158/98 (118) 93 Vital Signs Date Time Temp Pulse Resp B/P (MAP) Pulse Ox O2 Delivery O2 Flow Rate FiO2 04/24/18 16:35 98.3 67 17 137/89 (105) 96 04/23/18 16:10 Room Air I&O Intake and Output 04/24/18 07:00 Intake Total 1660 ml Output Total 400 ml Balance 1260 ml Intake Oral 1660 ml Output Urine Total 400 ml Current Medications: Meds: Current Medications Acetaminophen (Tylenol) 650 mg PRN Q6HRS PRN PO PAIN / TEMP Last administered on 04/24/18at 02:29; Start 04/13/18 at 00:30 Multi-Ingredient Ointment (Analgesic Mcdaniel) 1 juan PRN QID PRN TP MUSCLE PAIN; Start 04/13/18 at 00:30 Al Hydroxide/Mg Hydroxide (Mylanta Plus Xs) 15 ml PRN AFTMEALHC PRN PO DYSPEPSIA; Start 04/13/18 at 00:30 Magnesium Hydroxide (Milk Of Magnesia) 2,400 mg PRN QHS PRN PO CONSTIPATION; Start 04/13/18 at 00:30 Olanzapine (ZyPREXA ZYDIS) 5 mg PRN Q2HR PRN PO ANXIETY / AGITATION Last administered on 04/19/18 17:05; Start 04/13/18 at 02:00 Citalopram Hydrobromide (CeleXA) 40 mg DAILY PO Last administered on 07:59; Start 04/13/18 at 09:00; Stop 04/16/18 at 16:42; Status DC Diazepam (Valium) 2 mg PRN Q6HRS PRN PO ANXIETY Last administered on 04/20/18 23:13; Start 04/13/18 at 02:00 Divalproex Sodium (Depakote) 1,500 mg HS PO Last administered on 04/24/18 20: 22; Start 04/13/18 at 21:00 Melatonin 3 mg HS PO Last administered on 04/24/18 20:21; Start 04/13/18 at 21:00 Memantine (Namenda) 5 mg BIDWMEALS PO Last administered on 04/16/18 08:00; Start 04/13/18 at 08:00; Stop 04/16/18 at 16:42; Status DC Quetiapine Fumarate (SEROquel) 25 mg QHS PO Last administered on 04/16/18 19: 43; Start 04/13/18 at 21:00; Stop 04/17/18 at 16:51; Status DC Rivastigmine (Exelon) 1 patch DAILY TD Last administered on 04/16/18 08:05; Start 04/13/18 at 09:00; Stop 04/16/18 at 16:42; Status DC Trazodone HCl (Desyrel) 25 mg DAILYWSUP PO Last administered on 04/24/18 16:44 ; Start 04/13/18 at 17:00 Trazodone HCl (Desyrel) 75 mg QHS PO Last administered on 04/24/18 20:22; Start 04/13/18 at 21:00 Ascorbic Acid (Vitamin C) 500 mg DAILY PO Last administered on 04/24/18 09:04 ; Start 04/13/18 at 09:00 Carbidopa/Levodopa (Sinemet 25/100) 0.5 tab Q2HR W/A PO Last administered on 04/24/18 20:24; Start 04/13/18 at 06:00 Vitamin D (Vitamin D3) 50,000 unit WEEKLY PO Last administered on 04/20/18 07: 27; Start 04/13/18 at 09:00 Diclofenac Sodium (Voltaren) 1 juan PRN TID PRN TP MUSCLE PAIN; Start 04/13/18 at 02:00 Ferrous Sulfate (Feosol) 650 mg DAILY06 PO Last administered on 04/24/18 09:04 ; Start 04/13/18 at 06:00 Ibuprofen (Motrin) 600 mg PRN BID PRN PO PAIN Last administered on 04/21/18 18 :15; Start 04/13/18 at 02:00 Linaclotide (Linzess) 145 mcg DAILY PO Last administered on 04/24/18 09:05; Start 04/13/18 at 09:00 Nystatin (Nystop) 1 juan BID TP Last administered on 04/24/18 21:57; Start at 09:00 Aspirin (Children'S Aspirin) 81 mg DAILY PO Last administered on 04/24/18 09: 03; Start 04/13/18 at 09:00 Carbidopa/Levodopa (Sinemet Cr) 1 tab.sa HS PO Last administered on 04/24/18 20:22; Start 04/13/18 at 21:00 Docusate Sodium (Colace) 100 mg BID PO Last administered on 04/24/18 20:21; Start 04/13/18 at 09:00 Doxycycline Hyclate (Vibra-Tab) 100 mg BID PO Last administered on 04/21/18 19 :36; Start 04/13/18 at 09:00; Stop 04/22/18 at 08:59; Status DC Fluticasone Propionate (Flonase) 2 spray DAILY NS Last administered on 09:05; Start 04/13/18 at 09:00 Hydrocortisone (Cortaid) 1 juan PRN BID PRN TP RASH; Start 04/13/18 at 02:00 Lactobacillus Rhamnosus (Culturelle) 1 cap BID PO Last administered on 20:22; Start 04/13/18 at 09:00 Lactulose (Lactulose) 15 gm DAILYWBKFT PO Last administered on 04/24/18at 09:05 ; Start 04/13/18 at 08:00 Magnesium Oxide (Magnesium Oxide) 400 mg BID PO Last administered on 04/24/18 20:23; Start 04/13/18 at 09:00 Metformin HCl (Glucophage Xr) 1,000 mg DAILYWBKFT PO Last administered on at 09:09; Start 04/13/18 at 08:00 Miconazole Nitrate (Monistat-Derm) 1 juan PRN BID PRN TP RASH; Start 04/13/18 at 02:00 Multivitamins/ Calcium (Thera-M Plus) 1 tab DAILY PO Last administered on 09:04; Start 04/13/18 at 09:00 Pramipexole Dihydrochloride (miraPEX) 0.5 mg HS PO Last administered on 20:21; Start 04/13/18 at 21:00 Pravastatin Sodium (Pravachol) 40 mg DAILY PO Last administered on 04/24/18 09 :04; Start 04/13/18 at 09:00 Memantine (Namenda) 10 mg BIDWMEALS PO Last administered on 04/24/18 16:44; Start 04/16/18 at 17:00 Sertraline HCl (Zoloft) 50 mg DAILY PO Last administered on 04/19/18 08:15; Start 04/17/18 at 09:00; Stop 04/20/18 at 05:00; Status DC Rivastigmine (Exelon) 1 patch DAILY TD Last administered on 04/24/18 09:05; Start 04/17/18 at 09:00 Sertraline HCl (Zoloft) 50 mg STK-MED ONCE .ROUTE ; Start 04/17/18 at 07:29; Stop 04/17/18 at 07:30; Status DC Quetiapine Fumarate (SEROquel) 50 mg QHS PO Last administered on 04/18/18at 19: 46; Start 04/17/18 at 21:00; Stop 04/19/18 at 08:01; Status DC Quetiapine Fumarate (SEROquel) 100 mg QHS PO Last administered on 04/24/18 20: 22; Start 04/19/18 at 21:00 Sertraline HCl (Zoloft) 75 mg DAILY PO Last administered on 04/24/18 09:03; Start 04/20/18 at 09:00 Trazodone HCl (Desyrel) 100 mg PRN QHS PRN PO INSOMNIA; Start 04/24/18 at 18:00 Active Scripts Active Reported Doxycycline Hyclate 100 Mg Tablet.dr 100 Mg PO BID Mag-Al Plus Xs Suspension (Mag Hydrox/Al Hydrox/Simeth) 30 Ml Oral.susp 15 Ml PO PRN AFTMEALHC PRN Lactulose 10 Gm/15 Ml Solution 15 Gm PO DAILYWBKFT EXELON 4.6mg/24hr (Rivastigmine) 1 Each Patch.td24 1 Patch TP DAILY Seroquel (Quetiapine Fumarate) 25 Mg Tablet 1 Tab PO QHS Zyprexa Zydis (Olanzapine) 5 Mg Tab.rapdis 5 Mg PO PRN Q2HR PRN Analgesic Mcdaniel (Methyl Salicylate/Menthol) 28 Gm Oint...g. 1 Juan TP QID PRN Namenda (Memantine Hcl) 10 Mg Tablet 0.5 Tab PO BIDWMEALS Melatonin 3 Mg Tablet 1 Tab PO QHS Culturelle (Lactobacillus Rhamnosus Gg) 1 Each Capsule 1 Each PO BID Celexa (Citalopram Hydrobromide) 40 Mg Tablet 40 Mg PO DAILY Glucophage Xr (Metformin Hcl) 500 Mg Tab.er.24h 2 Tab PO DAILYWBKFT Nystatin 15 Gm Powder 1 Juan TP BID Milk Of Magnesia (Magnesium Hydroxide) 2,400 Mg/10 Ml Oral.susp 2,400 Mg PO HS PRN Voltaren (Diclofenac Sodium) 100 Gm Gel..gram. 1 Juan TP PRN TID PRN FOR NECK PAIN Vitamin D3 (Cholecalciferol (Vitamin D3)) 50,000 Unit Capsule 50,000 Unit PO WEEKLY Tylenol (Acetaminophen) 325 Mg Tablet 2 Tab PO PRN Q6HRS PRN Pravastatin Sodium 40 Mg Tablet 40 Mg PO DAILY Carbidopa-Levo Er 50-200 Tab (Carbidopa/Levodopa) 1 Each Tablet.er 1 Each PO HS Sinemet 25-100 Mg Tablet (Carbidopa/Levodopa) 1 Each Tablet 0.5 Tab PO Q2HR W/A Diazepam 2 Mg Tablet 2 Mg PO PRN Q6HRS PRN Mirapex (Pramipexole Di-Hcl) 0.25 Mg Tablet 0.5 Mg PO HS Linzess (Linaclotide) 145 Mcg Capsule 145 Mcg PO DAILY Trazodone Hcl 50 Mg Tablet 75 Mg PO HS Divalproex Sodium 500 Mg Tablet.dr 1,500 Mg PO HS Hydrocortisone 453.6 Gm Cream..g. 1 Juan TP PRN BID PRN Ferrous Sulfate 325 Mg Tablet 650 Mg PO DAILY06 Magnesium Oxide 400 Mg Tablet 400 Mg PO BID Miconazole Nitrate 45 Gm Cream.appl 1 Juan TP PRN BID PRN Aspirin 81 Mg Tab.chew 81 Mg PO DAILY Ibuprofen 400 Mg Tablet 600 Mg PO PRN BID PRN Docusate Sodium 100 Mg Capsule 100 Mg PO BID Fluticasone Propionate Nasal [place] (Fluticasone Propionate) 16 Gm [place].susp 2 [place] NS DAILY Multivitamins (Multivitamin) 1 Each Tablet 1 Tab PO DAILY Trazodone Hcl 50 Mg Tablet 25 Mg PO DAILYWSUP Ascorbic Acid 500 Mg Tablet 500 Mg PO DAILY I have reviewed the current psychotropics carefully including drug interactions. Risk benefit ratio favors no change other than as noted in my dictated progress note. Diagnosis: Problems: (1) Anxiety disorder (2) Lewy body dementia with behavioral disturbance (3) Impulse control disorder (4) Personality disorder in adult SAY PRUETT MD Apr 24, 2018 22:40
--- NOTE | 2018-04-24 23:12 | PDOC ---
Exam Note: Сергей Note: Please also refer to the separate dictated note~for this date of service dictated separately.~Patient seen individually. Discussed the patient with Nursing staff reviewed the chart.~Reviewed interim history and current functioning. Reviewed vital signs,~Labs/ Radiology~and current medications noted below. Continue current treatment with the changes noted in the dictated addendum note Assessment: Vital Signs: Vital Signs Date Time Temp Pulse Resp B/P (MAP) Pulse Ox O2 Delivery O2 Flow Rate FiO2 04/24/18 16:35 98.3 67 17 137/89 (105) 96 04/23/18 16:10 Room Air I&O Intake and Output 04/24/18 07:00 Intake Total 1660 ml Output Total 400 ml Balance 1260 ml Intake Oral 1660 ml Output Urine Total 400 ml Current Medications: Meds: Current Medications Acetaminophen (Tylenol) 650 mg PRN Q6HRS PRN PO PAIN / TEMP Last administered on 04/24/18at 02:29; Start 04/13/18 at 00:30 Multi-Ingredient Ointment (Analgesic Rumely) 1 juna PRN QID PRN TP MUSCLE PAIN; Start 04/13/18 at 00:30 Al Hydroxide/Mg Hydroxide (Mylanta Plus Xs) 15 ml PRN AFTMEALHC PRN PO DYSPEPSIA; Start 04/13/18 at 00:30 Magnesium Hydroxide (Milk Of Magnesia) 2,400 mg PRN QHS PRN PO CONSTIPATION; Start 04/13/18 at 00:30 Olanzapine (ZyPREXA ZYDIS) 5 mg PRN Q2HR PRN PO ANXIETY / AGITATION Last administered on 04/19/18at 17:05; Start 04/13/18 at 02:00 Citalopram Hydrobromide (CeleXA) 40 mg DAILY PO Last administered on at 07:59; Start 04/13/18 at 09:00; Stop 04/16/18 at 16:42; Status DC Diazepam (Valium) 2 mg PRN Q6HRS PRN PO ANXIETY Last administered on 04/20/18at 23:13; Start 04/13/18 at 02:00 Divalproex Sodium (Depakote) 1,500 mg HS PO Last administered on 04/24/18at 20: 22; Start 04/13/18 at 21:00 Melatonin 3 mg HS PO Last administered on 04/24/18 20:21; Start 04/13/18 at 21:00 Memantine (Namenda) 5 mg BIDWMEALS PO Last administered on 04/16/18at 08:00; Start 04/13/18 at 08:00; Stop 04/16/18 at 16:42; Status DC Quetiapine Fumarate (SEROquel) 25 mg QHS PO Last administered on 04/16/18 19: 43; Start 04/13/18 at 21:00; Stop 04/17/18 at 16:51; Status DC Rivastigmine (Exelon) 1 patch DAILY TD Last administered on 04/16/18 08:05; Start 04/13/18 at 09:00; Stop 04/16/18 at 16:42; Status DC Trazodone HCl (Desyrel) 25 mg DAILYWSUP PO Last administered on 04/24/18at 16:44 ; Start 04/13/18 at 17:00 Trazodone HCl (Desyrel) 75 mg QHS PO Last administered on 04/24/18 20:22; Start 04/13/18 at 21:00 Ascorbic Acid (Vitamin C) 500 mg DAILY PO Last administered on 04/24/18 09:04 ; Start 04/13/18 at 09:00 Carbidopa/Levodopa (Sinemet 25/100) 0.5 tab Q2HR W/A PO Last administered on 04/24/18 20:24; Start 04/13/18 at 06:00 Vitamin D (Vitamin D3) 50,000 unit WEEKLY PO Last administered on 04/20/18 07: 27; Start 04/13/18 at 09:00 Diclofenac Sodium (Voltaren) 1 juan PRN TID PRN TP MUSCLE PAIN; Start 04/13/18 at 02:00 Ferrous Sulfate (Feosol) 650 mg DAILY06 PO Last administered on 04/24/18 09:04 ; Start 04/13/18 at 06:00 Ibuprofen (Motrin) 600 mg PRN BID PRN PO PAIN Last administered on 04/21/18 18 :15; Start 04/13/18 at 02:00 Linaclotide (Linzess) 145 mcg DAILY PO Last administered on 04/24/18at 09:05; Start 04/13/18 at 09:00 Nystatin (Nystop) 1 juan BID TP Last administered on 04/24/18 21:57; Start at 09:00 Aspirin (Children'S Aspirin) 81 mg DAILY PO Last administered on 04/24/18 09: 03; Start 04/13/18 at 09:00 Carbidopa/Levodopa (Sinemet Cr) 1 tab.sa HS PO Last administered on 04/24/18 20:22; Start 04/13/18 at 21:00 Docusate Sodium (Colace) 100 mg BID PO Last administered on 04/24/18 20:21; Start 04/13/18 at 09:00 Doxycycline Hyclate (Vibra-Tab) 100 mg BID PO Last administered on 04/21/18 19 :36; Start 04/13/18 at 09:00; Stop 04/22/18 at 08:59; Status DC Fluticasone Propionate (Flonase) 2 spray DAILY NS Last administered on 09:05; Start 04/13/18 at 09:00 Hydrocortisone (Cortaid) 1 juan PRN BID PRN TP RASH; Start 04/13/18 at 02:00 Lactobacillus Rhamnosus (Culturelle) 1 cap BID PO Last administered on 20:22; Start 04/13/18 at 09:00 Lactulose (Lactulose) 15 gm DAILYWBKFT PO Last administered on 04/24/18 09:05 ; Start 04/13/18 at 08:00 Magnesium Oxide (Magnesium Oxide) 400 mg BID PO Last administered on 04/24/18 20:23; Start 04/13/18 at 09:00 Metformin HCl (Glucophage Xr) 1,000 mg DAILYWBKFT PO Last administered on 09:09; Start 04/13/18 at 08:00 Miconazole Nitrate (Monistat-Derm) 1 juan PRN BID PRN TP RASH; Start 04/13/18 at 02:00 Multivitamins/ Calcium (Thera-M Plus) 1 tab DAILY PO Last administered on 09:04; Start 04/13/18 at 09:00 Pramipexole Dihydrochloride (miraPEX) 0.5 mg HS PO Last administered on 11/7/ 18at 20:21; Start 04/13/18 at 21:00 Pravastatin Sodium (Pravachol) 40 mg DAILY PO Last administered on 04/24/18at 09 :04; Start 04/13/18 at 09:00 Memantine (Namenda) 10 mg BIDWMEALS PO Last administered on 04/24/18at 16:44; Start 04/16/18 at 17:00 Sertraline HCl (Zoloft) 50 mg DAILY PO Last administered on 04/19/18at 08:15; Start 04/17/18 at 09:00; Stop 04/20/18 at 05:00; Status DC Rivastigmine (Exelon) 1 patch DAILY TD Last administered on 04/24/18at 09:05; Start 04/17/18 at 09:00 Sertraline HCl (Zoloft) 50 mg STK-MED ONCE .ROUTE ; Start 04/17/18 at 07:29; Stop 04/17/18 at 07:30; Status DC Quetiapine Fumarate (SEROquel) 50 mg QHS PO Last administered on 04/18/18at 19: 46; Start 04/17/18 at 21:00; Stop 04/19/18 at 08:01; Status DC Quetiapine Fumarate (SEROquel) 100 mg QHS PO Last administered on 04/24/18at 20: 22; Start 04/19/18 at 21:00 Sertraline HCl (Zoloft) 75 mg DAILY PO Last administered on 04/24/18at 09:03; Start 04/20/18 at 09:00 Trazodone HCl (Desyrel) 100 mg PRN QHS PRN PO INSOMNIA; Start 04/24/18 at 18:00 Active Scripts Active Reported Doxycycline Hyclate 100 Mg Tablet.dr 100 Mg PO BID Mag-Al Plus Xs Suspension (Mag Hydrox/Al Hydrox/Simeth) 30 Ml Oral.susp 15 Ml PO PRN AFTMEALHC PRN Lactulose 10 Gm/15 Ml Solution 15 Gm PO DAILYWBKFT EXELON 4.6mg/24hr (Rivastigmine) 1 Each Patch.td24 1 Patch TP DAILY Seroquel (Quetiapine Fumarate) 25 Mg Tablet 1 Tab PO QHS Zyprexa Zydis (Olanzapine) 5 Mg Tab.rapdis 5 Mg PO PRN Q2HR PRN Analgesic [place] (Methyl Salicylate/Menthol) 28 Gm Oint...g. 1 Juan TP QID PRN Namenda (Memantine Hcl) 10 Mg Tablet 0.5 Tab PO BIDWMEALS Melatonin 3 Mg Tablet 1 Tab PO QHS Culturelle (Lactobacillus Rhamnosus Gg) 1 Each Capsule 1 Each PO BID Celexa (Citalopram Hydrobromide) 40 Mg Tablet 40 Mg PO DAILY Glucophage Xr (Metformin Hcl) 500 Mg Tab.er.24h 2 Tab PO DAILYWBKFT Nystatin 15 Gm Powder 1 Juan TP BID Milk Of Magnesia (Magnesium Hydroxide) 2,400 Mg/10 Ml Oral.susp 2,400 Mg PO HS PRN Voltaren (Diclofenac Sodium) 100 Gm Gel..gram. 1 Juan TP PRN TID PRN FOR NECK PAIN Vitamin D3 (Cholecalciferol (Vitamin D3)) 50,000 Unit Capsule 50,000 Unit PO WEEKLY Tylenol (Acetaminophen) 325 Mg Tablet 2 Tab PO PRN Q6HRS PRN Pravastatin Sodium 40 Mg Tablet 40 Mg PO DAILY Carbidopa-Levo Er 50-200 Tab (Carbidopa/Levodopa) 1 Each Tablet.er 1 Each PO HS Sinemet 25-100 Mg Tablet (Carbidopa/Levodopa) 1 Each Tablet 0.5 Tab PO Q2HR W/A Diazepam 2 Mg Tablet 2 Mg PO PRN Q6HRS PRN Mirapex (Pramipexole Di-Hcl) 0.25 Mg Tablet 0.5 Mg PO HS Linzess (Linaclotide) 145 Mcg Capsule 145 Mcg PO DAILY Trazodone Hcl 50 Mg Tablet 75 Mg PO HS Divalproex Sodium 500 Mg Tablet.dr 1,500 Mg PO HS Hydrocortisone 453.6 Gm Cream..g. 1 Juan TP PRN BID PRN Ferrous Sulfate 325 Mg Tablet 650 Mg PO DAILY06 Magnesium Oxide 400 Mg Tablet 400 Mg PO BID Miconazole Nitrate 45 Gm Cream.appl 1 Juan TP PRN BID PRN Aspirin 81 Mg Tab.chew 81 Mg PO DAILY Ibuprofen 400 Mg Tablet 600 Mg PO PRN BID PRN Docusate Sodium 100 Mg Capsule 100 Mg PO BID Fluticasone Propionate Nasal [place] (Fluticasone Propionate) 16 Gm [place].susp 2 [place] NS DAILY Multivitamins (Multivitamin) 1 Each Tablet 1 Tab PO DAILY Trazodone Hcl 50 Mg Tablet 25 Mg PO DAILYWSUP Ascorbic Acid 500 Mg Tablet 500 Mg PO DAILY I have reviewed the current psychotropics carefully including drug interactions. Risk benefit ratio favors no change other than as noted in my dictated progress note. Diagnosis: Problems: (1) Anxiety disorder (2) Lewy body dementia with behavioral disturbance (3) Impulse control disorder (4) Personality disorder in adult SAY PRUETT MD Apr 24, 2018 23:12
[2018-04-25 05:53] VITALS: BP 137/85
[2018-04-25] MEDS: CARBIDOPA/LEVODOPA 25/100MG TABLET PO SCH ×9 (06:14→22:00)
[2018-04-25] MEDS: metFORMIN XR 500 MG TAB.ER.24H PO SCH (08:24)
[2018-04-25] MEDS: MEMANTINE 10 MG TABLET. PO SCH ×2 (08:32→16:11)
[2018-04-25] MEDS: LACTULOSE 20 GM/30 ML SOLUTION. PO SCH (08:32)
[2018-04-25] MEDS: FLUTICASONE 50MCG/NASAL SPRAY 16GM BOTTLE. NS SCH (08:34)
[2018-04-25] MEDS: ASPIRIN 81 MG TAB.CHEW PO SCH (08:35)
[2018-04-25] MEDS: LACTOBACILLUS RHAMNOSUS GG 1 CAPSULE. PO SCH ×2 (08:35→19:20)
[2018-04-25] MEDS: DOCUSATE SODIUM 100 MG CAPSULE PO SCH ×2 (08:35→19:20)
[2018-04-25] MEDS: MAGNESIUM OXIDE 400 MG TABLET PO SCH ×2 (08:36→19:21)
[2018-04-25] MEDS: LINACLOTIDE 145 MCG CAPSULE. PO SCH (08:36)
[2018-04-25] MEDS: PRAVASTATIN 20 MG TABLET. PO SCH (08:37)
[2018-04-25] MEDS: SERTRALINE 25 MG TABLET. PO SCH (08:39)
[2018-04-25] MEDS: MULTIVITAMIN with MINERAL TABLET. PO SCH (08:39)
[2018-04-25] MEDS: RIVASTIGMINE 9.5MG PATCH. TD SCH (08:39)
[2018-04-25] MEDS: ASCORBIC ACID 500 MG TABLET PO SCH (08:39)
[2018-04-25] MEDS: NYSTATIN TOPICAL POWDER 15GM BOTTLE. TP SCH ×2 (08:44→19:28)
[2018-04-25 15:56] VITALS: BP 137/57
[2018-04-25] MEDS: traZODone 50 MG TABLET. PO SCH ×2 (16:11→19:21)
[2018-04-25] MEDS: PRAMIPEXOLE 0.25 MG TABLET. PO SCH (19:20)
[2018-04-25] MEDS: QUEtiapine 100 MG TABLET. PO SCH (19:20)
[2018-04-25] MEDS: CARBIDOPA/LEVODOPA CR 50/200MG TABLET.SA PO SCH (19:20)
[2018-04-25] MEDS: DIVALPROEX SODIUM 250 MG TABLET.DR. PO SCH (19:20)
[2018-04-25] MEDS: MELATONIN 3 MG TABLET PO SCH (19:21)
[2018-04-26] MEDS: FERROUS SULFATE 325 MG TABLET. PO SCH (05:32)
[2018-04-26] MEDS: CARBIDOPA/LEVODOPA 25/100MG TABLET PO SCH ×10 (05:33→21:38)
[2018-04-26 06:15] VITALS: BP 143/92
[2018-04-26] MEDS: LACTOBACILLUS RHAMNOSUS GG 1 CAPSULE. PO SCH ×2 (08:35→19:26)
[2018-04-26] MEDS: ASPIRIN 81 MG TAB.CHEW PO SCH (08:35)
[2018-04-26] MEDS: DOCUSATE SODIUM 100 MG CAPSULE PO SCH ×2 (08:35→19:28)
[2018-04-26] MEDS: metFORMIN XR 500 MG TAB.ER.24H PO SCH (08:35)
[2018-04-26] MEDS: LINACLOTIDE 145 MCG CAPSULE. PO SCH (08:36)
[2018-04-26] MEDS: LACTULOSE 20 GM/30 ML SOLUTION. PO SCH (08:36)
[2018-04-26] MEDS: FLUTICASONE 50MCG/NASAL SPRAY 16GM BOTTLE. NS SCH (08:36)
[2018-04-26] MEDS: MEMANTINE 10 MG TABLET. PO SCH ×2 (08:36→17:02)
[2018-04-26] MEDS: MULTIVITAMIN with MINERAL TABLET. PO SCH (08:37)
[2018-04-26] MEDS: MAGNESIUM OXIDE 400 MG TABLET PO SCH ×2 (08:37→19:26)
[2018-04-26] MEDS: PRAVASTATIN 20 MG TABLET. PO SCH (08:37)
[2018-04-26] MEDS: ASCORBIC ACID 500 MG TABLET PO SCH (08:37)
[2018-04-26] MEDS: RIVASTIGMINE 9.5MG PATCH. TD SCH (08:38)
[2018-04-26] MEDS: SERTRALINE 25 MG TABLET. PO SCH (08:38)
[2018-04-26] MEDS: NYSTATIN TOPICAL POWDER 15GM BOTTLE. TP SCH ×2 (08:38→19:28)
[2018-04-26 15:58] VITALS: BP 159/98
[2018-04-26] MEDS: traZODone 50 MG TABLET. PO SCH ×2 (17:02→19:28)
--- NOTE | 2018-04-26 19:07 | PN ---
DATE: 04/24/2018 PSYCHIATRIC PROGRESS NOTE This late entry 04/24/2018 covers elements not covered in my initial note. SUBJECTIVE: I met with the patient in the evening. The patient did not sleep at all previous night. He has done better during the day on 04/24/2018. Compliant with medications, remains on one-on-one status, not putting himself on the floor. REVIEW OF SYSTEMS: Ambulation impaired, in wheelchair. No CV, , pulmonary, eye system symptoms on review. MENTAL STATUS EXAM: Reasonably oriented. Speech is coherent, can be pressured at times. Abstraction fair, computation impaired, language function intact, attention span short. Mood and affect remain somewhat anxious, labile. LABORATORY DATA: Reviewed. IMPRESSION: Bipolar 1 disorder, unspecified, probable early Lewy body dementia, anxiety disorder, unspecified. PLAN: Increase at bedtime trazodone to 100 mg. Continue rest psychotropics unchanged. Valproic acid level is therapeutic. Gradually, we will reduce the one-on-one status. SAY PRUETT MD DR: MARCEL/nano JOB#: [id number] / [id number]
[2018-04-26] MEDS: DIVALPROEX SODIUM 250 MG TABLET.DR. PO SCH (19:26)
[2018-04-26] MEDS: PRAMIPEXOLE 0.25 MG TABLET. PO SCH (19:28)
[2018-04-26] MEDS: CARBIDOPA/LEVODOPA CR 50/200MG TABLET.SA PO SCH (19:28)
[2018-04-26] MEDS: MELATONIN 3 MG TABLET PO SCH (19:28)
[2018-04-26] MEDS: QUEtiapine 100 MG TABLET. PO SCH (19:31)
--- NOTE | 2018-04-26 19:42 | PDOC ---
Exam Note: Сергей Note: Late entry for date of service April 25, 2018. Please also refer to the separate dictated note~for this date of service dictated separately.~Patient seen individually. Discussed the patient with Nursing staff reviewed the chart.~ Reviewed interim history and current functioning. Reviewed vital signs,~Labs/ Radiology~and current medications noted below. Continue current treatment with the changes noted in the dictated addendum note Assessment: Vital Signs: VS - Last 72 Hours, by Label Date Time Temp Pulse Resp B/P (MAP) Pulse Ox O2 Delivery O2 Flow Rate FiO2 04/26/18 15:58 97.9 67 19 159/98 (118) 96 Room Air 04/26/18 06:15 97.4 54 22 143/92 (109) 96 Room Air 04/25/18 15:56 97.6 64 22 137/57 (83) 96 Room Air 04/25/18 05:53 97.1 59 24 137/85 (102) 99 04/24/18 16:35 98.3 67 17 137/89 (105) 96 04/24/18 05:49 98.2 60 20 140/82 (101) 93 Vital Signs Date Time Temp Pulse Resp B/P (MAP) Pulse Ox O2 Delivery O2 Flow Rate FiO2 04/26/18 15:58 97.9 67 19 159/98 (118) 96 Room Air I&O Intake and Output 04/26/18 07:00 Intake Total 1200 ml Balance 1200 ml Intake Oral 1200 ml # Voids 1 Current Medications: Meds: Current Medications Acetaminophen (Tylenol) 650 mg PRN Q6HRS PRN PO PAIN / TEMP Last administered on 04/24/18at 02:29; Start 04/13/18 at 00:30 Multi-Ingredient Ointment (Analgesic Blaine) 1 juan PRN QID PRN TP MUSCLE PAIN; Start 04/13/18 at 00:30 Al Hydroxide/Mg Hydroxide (Mylanta Plus Xs) 15 ml PRN AFTMEALHC PRN PO DYSPEPSIA; Start 04/13/18 at 00:30 Magnesium Hydroxide (Milk Of Magnesia) 2,400 mg PRN QHS PRN PO CONSTIPATION; Start 04/13/18 at 00:30 Olanzapine (ZyPREXA ZYDIS) 5 mg PRN Q2HR PRN PO ANXIETY / AGITATION Last administered on 04/19/18at 17:05; Start 04/13/18 at 02:00 Citalopram Hydrobromide (CeleXA) 40 mg DAILY PO Last administered on 07:59; Start 04/13/18 at 09:00; Stop 04/16/18 at 16:42; Status DC Diazepam (Valium) 2 mg PRN Q6HRS PRN PO ANXIETY Last administered on 04/20/18 23:13; Start 04/13/18 at 02:00 Divalproex Sodium (Depakote) 1,500 mg HS PO Last administered on 04/26/18 19: 26; Start 04/13/18 at 21:00 Melatonin 3 mg HS PO Last administered on 04/26/18 19:28; Start 04/13/18 at 21:00 Memantine (Namenda) 5 mg BIDWMEALS PO Last administered on 04/16/18 08:00; Start 04/13/18 at 08:00; Stop 04/16/18 at 16:42; Status DC Quetiapine Fumarate (SEROquel) 25 mg QHS PO Last administered on 04/16/18 19: 43; Start 04/13/18 at 21:00; Stop 04/17/18 at 16:51; Status DC Rivastigmine (Exelon) 1 patch DAILY TD Last administered on 04/16/18 08:05; Start 04/13/18 at 09:00; Stop 04/16/18 at 16:42; Status DC Trazodone HCl (Desyrel) 25 mg DAILYWSUP PO Last administered on 04/26/18 17:02 ; Start 04/13/18 at 17:00 Trazodone HCl (Desyrel) 75 mg QHS PO Last administered on 04/26/18 19:28; Start 04/13/18 at 21:00 Ascorbic Acid (Vitamin C) 500 mg DAILY PO Last administered on 04/26/18 08:37 ; Start 04/13/18 at 09:00 Carbidopa/Levodopa (Sinemet 25/100) 0.5 tab Q2HR W/A PO Last administered on 04/26/18 19:30; Start 04/13/18 at 06:00 Vitamin D (Vitamin D3) 50,000 unit WEEKLY PO Last administered on 04/20/18 07: 27; Start 04/13/18 at 09:00 Diclofenac Sodium (Voltaren) 1 juan PRN TID PRN TP MUSCLE PAIN; Start 04/13/18 at 02:00 Ferrous Sulfate (Feosol) 650 mg DAILY06 PO Last administered on 04/26/18 05:32 ; Start 04/13/18 at 06:00 Ibuprofen (Motrin) 600 mg PRN BID PRN PO PAIN Last administered on 04/21/18 18 :15; Start 04/13/18 at 02:00 Linaclotide (Linzess) 145 mcg DAILY PO Last administered on 04/26/18 08:36; Start 04/13/18 at 09:00 Nystatin (Nystop) 1 juan BID TP Last administered on 04/26/18 19:28; Start at 09:00 Aspirin (Children'S Aspirin) 81 mg DAILY PO Last administered on 04/26/18 08: 35; Start 04/13/18 at 09:00 Carbidopa/Levodopa (Sinemet Cr) 1 tab.sa HS PO Last administered on 04/26/18 19:28; Start 04/13/18 at 21:00 Docusate Sodium (Colace) 100 mg BID PO Last administered on 04/26/18 19:28; Start 04/13/18 at 09:00 Doxycycline Hyclate (Vibra-Tab) 100 mg BID PO Last administered on 04/21/18 19 :36; Start 04/13/18 at 09:00; Stop 04/22/18 at 08:59; Status DC Fluticasone Propionate (Flonase) 2 spray DAILY NS Last administered on 08:36; Start 04/13/18 at 09:00 Hydrocortisone (Cortaid) 1 juan PRN BID PRN TP RASH; Start 04/13/18 at 02:00 Lactobacillus Rhamnosus (Culturelle) 1 cap BID PO Last administered on 19:26; Start 04/13/18 at 09:00 Lactulose (Lactulose) 15 gm DAILYWBKFT PO Last administered on 04/26/18 08:36 ; Start 04/13/18 at 08:00 Magnesium Oxide (Magnesium Oxide) 400 mg BID PO Last administered on 11/9/18at 19:26; Start 04/13/18 at 09:00 Metformin HCl (Glucophage Xr) 1,000 mg DAILYWBKFT PO Last administered on at 08:35; Start 04/13/18 at 08:00 Miconazole Nitrate (Monistat-Derm) 1 juan PRN BID PRN TP RASH; Start 04/13/18 at 02:00 Multivitamins/ Calcium (Thera-M Plus) 1 tab DAILY PO Last administered on at 08:37; Start 04/13/18 at 09:00 Pramipexole Dihydrochloride (miraPEX) 0.5 mg HS PO Last administered on 19:28; Start 04/13/18 at 21:00 Pravastatin Sodium (Pravachol) 40 mg DAILY PO Last administered on 04/26/18at 08 :37; Start 04/13/18 at 09:00 Memantine (Namenda) 10 mg BIDWMEALS PO Last administered on 04/26/18at 17:02; Start 04/16/18 at 17:00 Sertraline HCl (Zoloft) 50 mg DAILY PO Last administered on 04/19/18at 08:15; Start 04/17/18 at 09:00; Stop 04/20/18 at 05:00; Status DC Rivastigmine (Exelon) 1 patch DAILY TD Last administered on 04/26/18at 08:38; Start 04/17/18 at 09:00 Sertraline HCl (Zoloft) 50 mg STK-MED ONCE .ROUTE ; Start 04/17/18 at 07:29; Stop 04/17/18 at 07:30; Status DC Quetiapine Fumarate (SEROquel) 50 mg QHS PO Last administered on 04/18/18at 19: 46; Start 04/17/18 at 21:00; Stop 04/19/18 at 08:01; Status DC Quetiapine Fumarate (SEROquel) 100 mg QHS PO Last administered on 04/25/18at 19: 20; Start 04/19/18 at 21:00; Stop 04/26/18 at 16:32; Status DC Sertraline HCl (Zoloft) 75 mg DAILY PO Last administered on 04/26/18at 08:38; Start 04/20/18 at 09:00 Trazodone HCl (Desyrel) 100 mg PRN QHS PRN PO INSOMNIA; Start 04/24/18 at 18:00 Quetiapine Fumarate (SEROquel) 150 mg QHS PO Last administered on 04/26/18at 19: 31; Start 04/26/18 at 21:00 Active Scripts Active Reported Doxycycline Hyclate 100 Mg Tablet.dr 100 Mg PO BID Mag-Al Plus Xs Suspension (Mag Hydrox/Al Hydrox/Simeth) 30 Ml Oral.susp 15 Ml PO PRN AFTMEALHC PRN Lactulose 10 Gm/15 Ml Solution 15 Gm PO DAILYWBKFT EXELON 4.6mg/24hr (Rivastigmine) 1 Each Patch.td24 1 Patch TP DAILY Seroquel (Quetiapine Fumarate) 25 Mg Tablet 1 Tab PO QHS Zyprexa Zydis (Olanzapine) 5 Mg Tab.rapdis 5 Mg PO PRN Q2HR PRN Analgesic [place] (Methyl Salicylate/Menthol) 28 Gm Oint...g. 1 Juan TP QID PRN Namenda (Memantine Hcl) 10 Mg Tablet 0.5 Tab PO BIDWMEALS Melatonin 3 Mg Tablet 1 Tab PO QHS Culturelle (Lactobacillus Rhamnosus Gg) 1 Each Capsule 1 Each PO BID Celexa (Citalopram Hydrobromide) 40 Mg Tablet 40 Mg PO DAILY Glucophage Xr (Metformin Hcl) 500 Mg Tab.er.24h 2 Tab PO DAILYWBKFT Nystatin 15 Gm Powder 1 Juan TP BID Milk Of Magnesia (Magnesium Hydroxide) 2,400 Mg/10 Ml Oral.susp 2,400 Mg PO HS PRN Voltaren (Diclofenac Sodium) 100 Gm Gel..gram. 1 Juan TP PRN TID PRN FOR NECK PAIN Vitamin D3 (Cholecalciferol (Vitamin D3)) 50,000 Unit Capsule 50,000 Unit PO WEEKLY Tylenol (Acetaminophen) 325 Mg Tablet 2 Tab PO PRN Q6HRS PRN Pravastatin Sodium 40 Mg Tablet 40 Mg PO DAILY Carbidopa-Levo Er 50-200 Tab (Carbidopa/Levodopa) 1 Each Tablet.er 1 Each PO HS Sinemet 25-100 Mg Tablet (Carbidopa/Levodopa) 1 Each Tablet 0.5 Tab PO Q2HR W/A Diazepam 2 Mg Tablet 2 Mg PO PRN Q6HRS PRN Mirapex (Pramipexole Di-Hcl) 0.25 Mg Tablet 0.5 Mg PO HS Linzess (Linaclotide) 145 Mcg Capsule 145 Mcg PO DAILY Trazodone Hcl 50 Mg Tablet 75 Mg PO HS Divalproex Sodium 500 Mg Tablet.dr 1,500 Mg PO HS Hydrocortisone 453.6 Gm Cream..g. 1 Juan TP PRN BID PRN Ferrous Sulfate 325 Mg Tablet 650 Mg PO DAILY06 Magnesium Oxide 400 Mg Tablet 400 Mg PO BID Miconazole Nitrate 45 Gm Cream.appl 1 Juan TP PRN BID PRN Aspirin 81 Mg Tab.chew 81 Mg PO DAILY Ibuprofen 400 Mg Tablet 600 Mg PO PRN BID PRN Docusate Sodium 100 Mg Capsule 100 Mg PO BID Fluticasone Propionate Nasal [place] (Fluticasone Propionate) 16 Gm [place].susp 2 [place] NS DAILY Multivitamins (Multivitamin) 1 Each Tablet 1 Tab PO DAILY Trazodone Hcl 50 Mg Tablet 25 Mg PO DAILYWSUP Ascorbic Acid 500 Mg Tablet 500 Mg PO DAILY I have reviewed the current psychotropics carefully including drug interactions. Risk benefit ratio favors no change other than as noted in my dictated progress note. Diagnosis: Problems: (1) Anxiety disorder (2) Lewy body dementia with behavioral disturbance (3) Impulse control disorder (4) Personality disorder in adult SAY PRUETT MD Apr 26, 2018 19:42
[2018-04-26] MEDS: diazePAM 2 MG TABLET PO PRN (21:38)
--- NOTE | 2018-04-26 22:51 | PDOC ---
Exam Note: Сергей Note: Please also refer to the separate dictated note~for this date of service dictated separately.~Patient seen individually. Discussed the patient with Nursing staff reviewed the chart.~Reviewed interim history and current functioning. Reviewed vital signs,~Labs/ Radiology~and current medications noted below. Continue current treatment with the changes noted in the dictated addendum note Assessment: Vital Signs: Vital Signs Date Time Temp Pulse Resp B/P (MAP) Pulse Ox O2 Delivery O2 Flow Rate FiO2 04/26/18 15:58 97.9 67 19 159/98 (118) 96 Room Air I&O Intake and Output 04/26/18 07:00 Intake Total 1200 ml Balance 1200 ml Intake Oral 1200 ml # Voids 1 Current Medications: Meds: Current Medications Acetaminophen (Tylenol) 650 mg PRN Q6HRS PRN PO PAIN / TEMP Last administered on 04/24/18at 02:29; Start 04/13/18 at 00:30 Multi-Ingredient Ointment (Analgesic Wister) 1 juan PRN QID PRN TP MUSCLE PAIN; Start 04/13/18 at 00:30 Al Hydroxide/Mg Hydroxide (Mylanta Plus Xs) 15 ml PRN AFTMEALHC PRN PO DYSPEPSIA; Start 04/13/18 at 00:30 Magnesium Hydroxide (Milk Of Magnesia) 2,400 mg PRN QHS PRN PO CONSTIPATION; Start 04/13/18 at 00:30 Olanzapine (ZyPREXA ZYDIS) 5 mg PRN Q2HR PRN PO ANXIETY / AGITATION Last administered on 04/19/18at 17:05; Start 04/13/18 at 02:00 Citalopram Hydrobromide (CeleXA) 40 mg DAILY PO Last administered on at 07:59; Start 04/13/18 at 09:00; Stop 04/16/18 at 16:42; Status DC Diazepam (Valium) 2 mg PRN Q6HRS PRN PO ANXIETY Last administered on 04/26/18at 21:38; Start 04/13/18 at 02:00 Divalproex Sodium (Depakote) 1,500 mg HS PO Last administered on 04/26/18 19: 26; Start 04/13/18 at 21:00 Melatonin 3 mg HS PO Last administered on 04/26/18 19:28; Start 04/13/18 at 21:00 Memantine (Namenda) 5 mg BIDWMEALS PO Last administered on 04/16/18 08:00; Start 04/13/18 at 08:00; Stop 04/16/18 at 16:42; Status DC Quetiapine Fumarate (SEROquel) 25 mg QHS PO Last administered on 04/16/18 19: 43; Start 04/13/18 at 21:00; Stop 04/17/18 at 16:51; Status DC Rivastigmine (Exelon) 1 patch DAILY TD Last administered on 04/16/18 08:05; Start 04/13/18 at 09:00; Stop 04/16/18 at 16:42; Status DC Trazodone HCl (Desyrel) 25 mg DAILYWSUP PO Last administered on 04/26/18 17:02 ; Start 04/13/18 at 17:00 Trazodone HCl (Desyrel) 75 mg QHS PO Last administered on 04/26/18 19:28; Start 04/13/18 at 21:00 Ascorbic Acid (Vitamin C) 500 mg DAILY PO Last administered on 04/26/18 08:37 ; Start 04/13/18 at 09:00 Carbidopa/Levodopa (Sinemet 25/100) 0.5 tab Q2HR W/A PO Last administered on 04/26/18 21:38; Start 04/13/18 at 06:00 Vitamin D (Vitamin D3) 50,000 unit WEEKLY PO Last administered on 04/20/18 07: 27; Start 04/13/18 at 09:00 Diclofenac Sodium (Voltaren) 1 juan PRN TID PRN TP MUSCLE PAIN; Start 04/13/18 at 02:00 Ferrous Sulfate (Feosol) 650 mg DAILY06 PO Last administered on 04/26/18 05:32 ; Start 04/13/18 at 06:00 Ibuprofen (Motrin) 600 mg PRN BID PRN PO PAIN Last administered on 04/21/18 18 :15; Start 04/13/18 at 02:00 Linaclotide (Linzess) 145 mcg DAILY PO Last administered on 04/26/18 08:36; Start 04/13/18 at 09:00 Nystatin (Nystop) 1 juan BID TP Last administered on 04/26/18 19:28; Start at 09:00 Aspirin (Children'S Aspirin) 81 mg DAILY PO Last administered on 04/26/18 08: 35; Start 04/13/18 at 09:00 Carbidopa/Levodopa (Sinemet Cr) 1 tab.sa HS PO Last administered on 04/26/18 19:28; Start 04/13/18 at 21:00 Docusate Sodium (Colace) 100 mg BID PO Last administered on 04/26/18 19:28; Start 04/13/18 at 09:00 Doxycycline Hyclate (Vibra-Tab) 100 mg BID PO Last administered on 04/21/18 19 :36; Start 04/13/18 at 09:00; Stop 04/22/18 at 08:59; Status DC Fluticasone Propionate (Flonase) 2 spray DAILY NS Last administered on 08:36; Start 04/13/18 at 09:00 Hydrocortisone (Cortaid) 1 juan PRN BID PRN TP RASH; Start 04/13/18 at 02:00 Lactobacillus Rhamnosus (Culturelle) 1 cap BID PO Last administered on 19:26; Start 04/13/18 at 09:00 Lactulose (Lactulose) 15 gm DAILYWBKFT PO Last administered on 04/26/18 08:36 ; Start 04/13/18 at 08:00 Magnesium Oxide (Magnesium Oxide) 400 mg BID PO Last administered on 04/26/18 19:26; Start 04/13/18 at 09:00 Metformin HCl (Glucophage Xr) 1,000 mg DAILYWBKFT PO Last administered on 08:35; Start 04/13/18 at 08:00 Miconazole Nitrate (Monistat-Derm) 1 juan PRN BID PRN TP RASH; Start 04/13/18 at 02:00 Multivitamins/ Calcium (Thera-M Plus) 1 tab DAILY PO Last administered on 08:37; Start 04/13/18 at 09:00 Pramipexole Dihydrochloride (miraPEX) 0.5 mg HS PO Last administered on 19:28; Start 04/13/18 at 21:00 Pravastatin Sodium (Pravachol) 40 mg DAILY PO Last administered on 04/26/18at 08 :37; Start 04/13/18 at 09:00 Memantine (Namenda) 10 mg BIDWMEALS PO Last administered on 04/26/18at 17:02; Start 04/16/18 at 17:00 Sertraline HCl (Zoloft) 50 mg DAILY PO Last administered on 04/19/18at 08:15; Start 04/17/18 at 09:00; Stop 04/20/18 at 05:00; Status DC Rivastigmine (Exelon) 1 patch DAILY TD Last administered on 04/26/18at 08:38; Start 04/17/18 at 09:00 Sertraline HCl (Zoloft) 50 mg STK-MED ONCE .ROUTE ; Start 04/17/18 at 07:29; Stop 04/17/18 at 07:30; Status DC Quetiapine Fumarate (SEROquel) 50 mg QHS PO Last administered on 04/18/18at 19: 46; Start 04/17/18 at 21:00; Stop 04/19/18 at 08:01; Status DC Quetiapine Fumarate (SEROquel) 100 mg QHS PO Last administered on 04/25/18at 19: 20; Start 04/19/18 at 21:00; Stop 04/26/18 at 16:32; Status DC Sertraline HCl (Zoloft) 75 mg DAILY PO Last administered on 04/26/18at 08:38; Start 04/20/18 at 09:00 Trazodone HCl (Desyrel) 100 mg PRN QHS PRN PO INSOMNIA; Start 04/24/18 at 18:00 Quetiapine Fumarate (SEROquel) 150 mg QHS PO Last administered on 04/26/18at 19: 31; Start 04/26/18 at 21:00 Active Scripts Active Reported Doxycycline Hyclate 100 Mg Tablet.dr 100 Mg PO BID Mag-Al Plus Xs Suspension (Mag Hydrox/Al Hydrox/Simeth) 30 Ml Oral.susp 15 Ml PO PRN AFTMEALHC PRN Lactulose 10 Gm/15 Ml Solution 15 Gm PO DAILYWBKFT EXELON 4.6mg/24hr (Rivastigmine) 1 Each Patch.td24 1 Patch TP DAILY Seroquel (Quetiapine Fumarate) 25 Mg Tablet 1 Tab PO QHS Zyprexa Zydis (Olanzapine) 5 Mg Tab.rapdis 5 Mg PO PRN Q2HR PRN Analgesic Wister (Methyl Salicylate/Menthol) 28 Gm Oint...g. 1 Juan TP QID PRN Namenda (Memantine Hcl) 10 Mg Tablet 0.5 Tab PO BIDWMEALS Melatonin 3 Mg Tablet 1 Tab PO QHS Culturelle (Lactobacillus Rhamnosus Gg) 1 Each Capsule 1 Each PO BID Celexa (Citalopram Hydrobromide) 40 Mg Tablet 40 Mg PO DAILY Glucophage Xr (Metformin Hcl) 500 Mg Tab.er.24h 2 Tab PO DAILYWBKFT Nystatin 15 Gm Powder 1 Juan TP BID Milk Of Magnesia (Magnesium Hydroxide) 2,400 Mg/10 Ml Oral.susp 2,400 Mg PO HS PRN Voltaren (Diclofenac Sodium) 100 Gm Gel..gram. 1 Juan TP PRN TID PRN FOR NECK PAIN Vitamin D3 (Cholecalciferol (Vitamin D3)) 50,000 Unit Capsule 50,000 Unit PO WEEKLY Tylenol (Acetaminophen) 325 Mg Tablet 2 Tab PO PRN Q6HRS PRN Pravastatin Sodium 40 Mg Tablet 40 Mg PO DAILY Carbidopa-Levo Er 50-200 Tab (Carbidopa/Levodopa) 1 Each Tablet.er 1 Each PO HS Sinemet 25-100 Mg Tablet (Carbidopa/Levodopa) 1 Each Tablet 0.5 Tab PO Q2HR W/A Diazepam 2 Mg Tablet 2 Mg PO PRN Q6HRS PRN Mirapex (Pramipexole Di-Hcl) 0.25 Mg Tablet 0.5 Mg PO HS Linzess (Linaclotide) 145 Mcg Capsule 145 Mcg PO DAILY Trazodone Hcl 50 Mg Tablet 75 Mg PO HS Divalproex Sodium 500 Mg Tablet.dr 1,500 Mg PO HS Hydrocortisone 453.6 Gm Cream..g. 1 Juan TP PRN BID PRN Ferrous Sulfate 325 Mg Tablet 650 Mg PO DAILY06 Magnesium Oxide 400 Mg Tablet 400 Mg PO BID Miconazole Nitrate 45 Gm Cream.appl 1 Juan TP PRN BID PRN Aspirin 81 Mg Tab.chew 81 Mg PO DAILY Ibuprofen 400 Mg Tablet 600 Mg PO PRN BID PRN Docusate Sodium 100 Mg Capsule 100 Mg PO BID Fluticasone Propionate Nasal [place] (Fluticasone Propionate) 16 Gm [place].susp 2 [place] NS DAILY Multivitamins (Multivitamin) 1 Each Tablet 1 Tab PO DAILY Trazodone Hcl 50 Mg Tablet 25 Mg PO DAILYWSUP Ascorbic Acid 500 Mg Tablet 500 Mg PO DAILY I have reviewed the current psychotropics carefully including drug interactions. Risk benefit ratio favors no change other than as noted in my dictated progress note. Diagnosis: Problems: (1) Anxiety disorder (2) Lewy body dementia with behavioral disturbance (3) Impulse control disorder (4) Personality disorder in adult SAY PRUETT MD Apr 26, 2018 22:51
[2018-04-27] MEDS: FERROUS SULFATE 325 MG TABLET. PO SCH (05:13)
[2018-04-27] MEDS: CARBIDOPA/LEVODOPA 25/100MG TABLET PO SCH ×9 (05:15→22:08)
[2018-04-27] MEDS: IBUPROFEN 600 MG TABLET. PO PRN (05:17)
[2018-04-27 05:49] VITALS: BP 150/88
[2018-04-27] MEDS: FLUTICASONE 50MCG/NASAL SPRAY 16GM BOTTLE. NS SCH (09:00)
[2018-04-27] MEDS: MEMANTINE 10 MG TABLET. PO SCH ×2 (09:19→17:24)
[2018-04-27] MEDS: LACTULOSE 20 GM/30 ML SOLUTION. PO SCH (09:19)
[2018-04-27] MEDS: metFORMIN XR 500 MG TAB.ER.24H PO SCH (09:19)
[2018-04-27] MEDS: ASPIRIN 81 MG TAB.CHEW PO SCH (09:20)
[2018-04-27] MEDS: DOCUSATE SODIUM 100 MG CAPSULE PO SCH ×2 (09:20→19:52)
[2018-04-27] MEDS: SERTRALINE 25 MG TABLET. PO SCH (09:21)
[2018-04-27] MEDS: MAGNESIUM OXIDE 400 MG TABLET PO SCH ×2 (09:21→19:53)
[2018-04-27] MEDS: PRAVASTATIN 20 MG TABLET. PO SCH (09:21)
[2018-04-27] MEDS: CHOLECALCIFEROL (VITAMIN D3) 50,000 UNIT CAPSULE PO SCH (09:21)
[2018-04-27] MEDS: MULTIVITAMIN with MINERAL TABLET. PO SCH (09:21)
[2018-04-27] MEDS: LACTOBACILLUS RHAMNOSUS GG 1 CAPSULE. PO SCH ×2 (09:21→19:52)
[2018-04-27] MEDS: ASCORBIC ACID 500 MG TABLET PO SCH (09:21)
[2018-04-27] MEDS: LINACLOTIDE 145 MCG CAPSULE. PO SCH (09:21)
[2018-04-27] MEDS: RIVASTIGMINE 9.5MG PATCH. TD SCH (09:22)
[2018-04-27] MEDS: NYSTATIN TOPICAL POWDER 15GM BOTTLE. TP SCH ×2 (09:22→19:57)
[2018-04-27 10:03] LABS: BASO % 1 % (0-3); EOS # 0.3 x10^3/uL (0.0-0.7); EOS % 4 % (0-3); HEMATOCRIT 39.1 % (39.0-53.0); HEMOGLOBIN 13.1 g/dL (13.0-17.5); LYMPH # 1.2 x10^3/uL (1.0-4.8); LYMPH % 18 % (24-48); MEAN CORPUSCULAR HEMOGLOBIN 31 pg (25-35); MEAN CORPUSCULAR HGB CONC 34 g/dL (31-37); MEAN CORPUSCULAR VOLUME 92 fL (79-100); MONO # 0.7 x10^3/uL (0.0-1.1); MONO % 10 % (0-9); NEUT # 4.7 x10^3uL (1.8-7.7); NEUT % 67 % (31-73); PLATELET COUNT 225 x10^3/uL (140-400); RED BLOOD COUNT 4.26 x10^6/uL (4.30-5.70); RED CELL DISTRIBUTION WIDTH 14.3 % (11.5-14.5); WHITE BLOOD COUNT 6.9 x10^3/uL (4.0-11.0)
[2018-04-27 10:14] LABS: ALBUMIN 3.1 g/dL (3.4-5.0); ALBUMIN/GLOBULIN RATIO 0.9 (1.0-1.7); CALCIUM 8.9 mg/dL (8.5-10.1); CREATININE 0.9 mg/dL (0.7-1.3); GFR 84.4; POTASSIUM 4.1 mmol/L (3.5-5.1); TOTAL BILIRUBIN 0.4 mg/dL (0.2-1.0); TOTAL PROTEIN 6.5 g/dL (6.4-8.2)
--- NOTE | 2018-04-27 12:20 | PN ---
DATE: 04/25/2018 This late entry, 04/25/2018, covers elements not covered in my initial note. SUBJECTIVE: I met with the patient in the evening and staffed at treatment team meeting with the entire team in the morning. Reviewed the patient's history and progress. He remains on one-on-one status. Slept 3-1/4 hours previous night. He has been noted to be somewhat needy and sarcastic at times. REVIEW OF SYSTEMS: Ambulation impaired, in wheelchair. No CV, , pulmonary, eye, ENT system symptoms on review. MENTAL STATUS EXAM: Oriented reasonably. Speech coherent, somewhat pressured at times. Abstraction fair, computation impaired, language function intact, attention span short. Mood and affect remain somewhat anxious and labile. No active suicidal ideation. LABORATORY DATA: Reviewed. IMPRESSION: Bipolar 1 disorder, unspecified, probable early Lewy body dementia; anxiety disorder, unspecified. PLAN: We had a lengthy discussion on how to gradually wean him off the one-on-one status in increments of 1 hour when he stays on one-on-one, and if he does well, for the next round, it will be 2 hours and so on. Continue psychotropics mentioned in my initial note. Valproic acid level therapeutic at 51. SAY PRUETT MD DR: MARCEL/nano JOB#: [id number] / [id number]
[2018-04-27 15:46] VITALS: BP 130/81
[2018-04-27] MEDS: traZODone 50 MG TABLET. PO SCH ×2 (17:24→19:53)
[2018-04-27] MEDS: MELATONIN 3 MG TABLET PO SCH (19:51)
[2018-04-27] MEDS: DIVALPROEX SODIUM 250 MG TABLET.DR. PO SCH (19:52)
[2018-04-27] MEDS: QUEtiapine 100 MG TABLET. PO SCH (19:54)
[2018-04-27] MEDS: PRAMIPEXOLE 0.25 MG TABLET. PO SCH (19:54)
[2018-04-27] MEDS: CARBIDOPA/LEVODOPA CR 50/200MG TABLET.SA PO SCH (19:56)
--- NOTE | 2018-04-27 22:50 | PDOC ---
Exam Note: Сергей Note: Please also refer to the separate dictated note~for this date of service dictated separately.~Patient seen individually. Discussed the patient with Nursing staff reviewed the chart.~Reviewed interim history and current functioning. Reviewed vital signs,~Labs/ Radiology~and current medications noted below. Continue current treatment with the changes noted in the dictated addendum note Assessment: Vital Signs: Vital Signs Date Time Temp Pulse Resp B/P (MAP) Pulse Ox O2 Delivery O2 Flow Rate FiO2 04/27/18 15:46 98.2 81 18 130/81 (97) 99 Room Air I&O Intake and Output 04/27/18 07:00 Intake Total 960 ml Balance 960 ml Intake Oral 960 ml # Bowel Movements 1 Labs: Laboratory Tests Test 04/27/18 09:42 White Blood Count 6.9 x10^3/uL (4.0-11.0) Red Blood Count 4.26 x10^6/uL (4.30-5.70) L Hemoglobin 13.1 g/dL (13.0-17.5) Hematocrit 39.1 % (39.0-53.0) Mean Corpuscular Volume 92 fL (79-100) Mean Corpuscular Hemoglobin 31 pg (25-35) Mean Corpuscular Hemoglobin Concent 34 g/dL (31-37) Red Cell Distribution Width 14.3 % (11.5-14.5) Platelet Count 225 x10^3/uL (140-400) Neutrophils (%) (Auto) 67 % (31-73) Lymphocytes (%) (Auto) 18 % (24-48) L Monocytes (%) (Auto) 10 % (0-9) H Eosinophils (%) (Auto) 4 % (0-3) H Basophils (%) (Auto) 1 % (0-3) Neutrophils # (Auto) 4.7 x10^3uL (1.8-7.7) Lymphocytes # (Auto) 1.2 x10^3/uL (1.0-4.8) Monocytes # (Auto) 0.7 x10^3/uL (0.0-1.1) Eosinophils # (Auto) 0.3 x10^3/uL (0.0-0.7) Basophils # (Auto) 0.0 x10^3/uL (0.0-0.2) Sodium Level 137 mmol/L (136-145) Potassium Level 4.1 mmol/L (3.5-5.1) Chloride Level 100 mmol/L (98-107) Carbon Dioxide Level 36 mmol/L (21-32) H Anion Gap 1 (6-14) L Blood Urea Nitrogen 16 mg/dL (8-26) Creatinine 0.9 mg/dL (0.7-1.3) Estimated GFR (Cockcroft-Gault) 84.4 BUN/Creatinine Ratio 18 (6-20) Glucose Level 75 mg/dL (70-99) Calcium Level 8.9 mg/dL (8.5-10.1) Total Bilirubin 0.4 mg/dL (0.2-1.0) Aspartate Amino Transferase (AST) 17 U/L (15-37) Alanine Aminotransferase (ALT) 15 U/L (16-63) L Alkaline Phosphatase 67 U/L (46-116) Total Protein 6.5 g/dL (6.4-8.2) Albumin 3.1 g/dL (3.4-5.0) L Albumin/Globulin Ratio 0.9 (1.0-1.7) L Current Medications: Meds: Current Medications Acetaminophen (Tylenol) 650 mg PRN Q6HRS PRN PO PAIN / TEMP Last administered on 04/24/18at 02:29; Start 04/13/18 at 00:30 Multi-Ingredient Ointment (Analgesic Xenia) 1 juan PRN QID PRN TP MUSCLE PAIN; Start 04/13/18 at 00:30 Al Hydroxide/Mg Hydroxide (Mylanta Plus Xs) 15 ml PRN AFTMEALHC PRN PO DYSPEPSIA; Start 04/13/18 at 00:30 Magnesium Hydroxide (Milk Of Magnesia) 2,400 mg PRN QHS PRN PO CONSTIPATION; Start 04/13/18 at 00:30 Olanzapine (ZyPREXA ZYDIS) 5 mg PRN Q2HR PRN PO ANXIETY / AGITATION Last administered on 04/19/18at 17:05; Start 04/13/18 at 02:00 Citalopram Hydrobromide (CeleXA) 40 mg DAILY PO Last administered on at 07:59; Start 04/13/18 at 09:00; Stop 04/16/18 at 16:42; Status DC Diazepam (Valium) 2 mg PRN Q6HRS PRN PO ANXIETY Last administered on 04/26/18 21:38; Start 04/13/18 at 02:00 Divalproex Sodium (Depakote) 1,500 mg HS PO Last administered on 04/27/18 19: 52; Start 04/13/18 at 21:00 Melatonin 3 mg HS PO Last administered on 04/27/18 19:51; Start 04/13/18 at 21:00 Memantine (Namenda) 5 mg BIDWMEALS PO Last administered on 04/16/18 08:00; Start 04/13/18 at 08:00; Stop 04/16/18 at 16:42; Status DC Quetiapine Fumarate (SEROquel) 25 mg QHS PO Last administered on 04/16/18 19: 43; Start 04/13/18 at 21:00; Stop 04/17/18 at 16:51; Status DC Rivastigmine (Exelon) 1 patch DAILY TD Last administered on 04/16/18at 08:05; Start 04/13/18 at 09:00; Stop 04/16/18 at 16:42; Status DC Trazodone HCl (Desyrel) 25 mg DAILYWSUP PO Last administered on 04/27/18 17: 24; Start 04/13/18 at 17:00 Trazodone HCl (Desyrel) 75 mg QHS PO Last administered on 04/27/18 19:53; Start 04/13/18 at 21:00 Ascorbic Acid (Vitamin C) 500 mg DAILY PO Last administered on 04/27/18at 09:21 ; Start 04/13/18 at 09:00 Carbidopa/Levodopa (Sinemet 25/100) 0.5 tab Q2HR W/A PO Last administered on 04/27/18 22:08; Start 04/13/18 at 06:00 Vitamin D (Vitamin D3) 50,000 unit WEEKLY PO Last administered on 04/27/18 09 :21; Start 04/13/18 at 09:00 Diclofenac Sodium (Voltaren) 1 juan PRN TID PRN TP MUSCLE PAIN; Start 04/13/18 at 02:00 Ferrous Sulfate (Feosol) 650 mg DAILY06 PO Last administered on 04/27/18 05: 13; Start 04/13/18 at 06:00 Ibuprofen (Motrin) 600 mg PRN BID PRN PO PAIN Last administered on 04/27/18 05:17; Start 04/13/18 at 02:00 Linaclotide (Linzess) 145 mcg DAILY PO Last administered on 04/27/18 09:21; Start 04/13/18 at 09:00 Nystatin (Nystop) 1 juan BID TP Last administered on 04/27/18 19:57; Start at 09:00 Aspirin (Children'S Aspirin) 81 mg DAILY PO Last administered on 04/27/18 09: 20; Start 04/13/18 at 09:00 Carbidopa/Levodopa (Sinemet Cr) 1 tab.sa HS PO Last administered on 04/27/18 19:56; Start 04/13/18 at 21:00 Docusate Sodium (Colace) 100 mg BID PO Last administered on 04/27/18 19:52; Start 04/13/18 at 09:00 Doxycycline Hyclate (Vibra-Tab) 100 mg BID PO Last administered on 04/21/18 19 :36; Start 04/13/18 at 09:00; Stop 04/22/18 at 08:59; Status DC Fluticasone Propionate (Flonase) 2 spray DAILY NS Last administered on 08:36; Start 04/13/18 at 09:00 Hydrocortisone (Cortaid) 1 juan PRN BID PRN TP RASH; Start 04/13/18 at 02:00 Lactobacillus Rhamnosus (Culturelle) 1 cap BID PO Last administered on 19:52; Start 04/13/18 at 09:00 Lactulose (Lactulose) 15 gm DAILYWBKFT PO Last administered on 04/27/18 09:19 ; Start 04/13/18 at 08:00 Magnesium Oxide (Magnesium Oxide) 400 mg BID PO Last administered on 19:53; Start 04/13/18 at 09:00 Metformin HCl (Glucophage Xr) 1,000 mg DAILYWBKFT PO Last administered on 04/27 09:19; Start 04/13/18 at 08:00 Miconazole Nitrate (Monistat-Derm) 1 juan PRN BID PRN TP RASH; Start 04/13/18 at 02:00 Multivitamins/ Calcium (Thera-M Plus) 1 tab DAILY PO Last administered on 04/27at 09:21; Start 04/13/18 at 09:00 Pramipexole Dihydrochloride (miraPEX) 0.5 mg HS PO Last administered on at 19:54; Start 04/13/18 at 21:00 Pravastatin Sodium (Pravachol) 40 mg DAILY PO Last administered on 04/27/18at 09:21; Start 04/13/18 at 09:00 Memantine (Namenda) 10 mg BIDWMEALS PO Last administered on 04/27/18at 17:24; Start 04/16/18 at 17:00 Sertraline HCl (Zoloft) 50 mg DAILY PO Last administered on 04/19/18at 08:15; Start 04/17/18 at 09:00; Stop 04/20/18 at 05:00; Status DC Rivastigmine (Exelon) 1 patch DAILY TD Last administered on 04/27/18at 09:22; Start 04/17/18 at 09:00 Sertraline HCl (Zoloft) 50 mg STK-MED ONCE .ROUTE ; Start 04/17/18 at 07:29; Stop 04/17/18 at 07:30; Status DC Quetiapine Fumarate (SEROquel) 50 mg QHS PO Last administered on 04/18/18at 19: 46; Start 04/17/18 at 21:00; Stop 04/19/18 at 08:01; Status DC Quetiapine Fumarate (SEROquel) 100 mg QHS PO Last administered on 04/25/18at 19: 20; Start 04/19/18 at 21:00; Stop 04/26/18 at 16:32; Status DC Sertraline HCl (Zoloft) 75 mg DAILY PO Last administered on 04/27/18at 09:21; Start 04/20/18 at 09:00 Trazodone HCl (Desyrel) 100 mg PRN QHS PRN PO INSOMNIA; Start 04/24/18 at 18:00 Quetiapine Fumarate (SEROquel) 150 mg QHS PO Last administered on 04/27/18at 19 :54; Start 04/26/18 at 21:00 Active Scripts Active Reported Doxycycline Hyclate 100 Mg Tablet.dr 100 Mg PO BID Mag-Al Plus Xs Suspension (Mag Hydrox/Al Hydrox/Simeth) 30 Ml Oral.susp 15 Ml PO PRN AFTMEALHC PRN Lactulose 10 Gm/15 Ml Solution 15 Gm PO DAILYWBKFT EXELON 4.6mg/24hr (Rivastigmine) 1 Each Patch.td24 1 Patch TP DAILY Seroquel (Quetiapine Fumarate) 25 Mg Tablet 1 Tab PO QHS Zyprexa Zydis (Olanzapine) 5 Mg Tab.rapdis 5 Mg PO PRN Q2HR PRN Analgesic Xenia (Methyl Salicylate/Menthol) 28 Gm Oint...g. 1 Juan TP QID PRN Namenda (Memantine Hcl) 10 Mg Tablet 0.5 Tab PO BIDWMEALS Melatonin 3 Mg Tablet 1 Tab PO QHS Culturelle (Lactobacillus Rhamnosus Gg) 1 Each Capsule 1 Each PO BID Celexa (Citalopram Hydrobromide) 40 Mg Tablet 40 Mg PO DAILY Glucophage Xr (Metformin Hcl) 500 Mg Tab.er.24h 2 Tab PO DAILYWBKFT Nystatin 15 Gm Powder 1 Juan TP BID Milk Of Magnesia (Magnesium Hydroxide) 2,400 Mg/10 Ml Oral.susp 2,400 Mg PO HS PRN Voltaren (Diclofenac Sodium) 100 Gm Gel..gram. 1 Juan TP PRN TID PRN FOR NECK PAIN Vitamin D3 (Cholecalciferol (Vitamin D3)) 50,000 Unit Capsule 50,000 Unit PO WEEKLY Tylenol (Acetaminophen) 325 Mg Tablet 2 Tab PO PRN Q6HRS PRN Pravastatin Sodium 40 Mg Tablet 40 Mg PO DAILY Carbidopa-Levo Er 50-200 Tab (Carbidopa/Levodopa) 1 Each Tablet.er 1 Each PO HS Sinemet 25-100 Mg Tablet (Carbidopa/Levodopa) 1 Each Tablet 0.5 Tab PO Q2HR W/A Diazepam 2 Mg Tablet 2 Mg PO PRN Q6HRS PRN Mirapex (Pramipexole Di-Hcl) 0.25 Mg Tablet 0.5 Mg PO HS Linzess (Linaclotide) 145 Mcg Capsule 145 Mcg PO DAILY Trazodone Hcl 50 Mg Tablet 75 Mg PO HS Divalproex Sodium 500 Mg Tablet.dr 1,500 Mg PO HS Hydrocortisone 453.6 Gm Cream..g. 1 Juan TP PRN BID PRN Ferrous Sulfate 325 Mg Tablet 650 Mg PO DAILY06 Magnesium Oxide 400 Mg Tablet 400 Mg PO BID Miconazole Nitrate 45 Gm Cream.appl 1 Juan TP PRN BID PRN Aspirin 81 Mg Tab.chew 81 Mg PO DAILY Ibuprofen 400 Mg Tablet 600 Mg PO PRN BID PRN Docusate Sodium 100 Mg Capsule 100 Mg PO BID Fluticasone Propionate Nasal [place] (Fluticasone Propionate) 16 Gm [place].susp 2 [place] NS DAILY Multivitamins (Multivitamin) 1 Each Tablet 1 Tab PO DAILY Trazodone Hcl 50 Mg Tablet 25 Mg PO DAILYWSUP Ascorbic Acid 500 Mg Tablet 500 Mg PO DAILY I have reviewed the current psychotropics carefully including drug interactions. Risk benefit ratio favors no change other than as noted in my dictated progress note. Diagnosis: Problems: (1) Anxiety disorder (2) Lewy body dementia with behavioral disturbance (3) Impulse control disorder (4) Personality disorder in adult SAY PRUETT MD Apr 27, 2018 22:50
[2018-04-28] MEDS: ACETAMINOPHEN 325 MG TABLET PO PRN (00:33)
[2018-04-28] MEDS: CARBIDOPA/LEVODOPA 25/100MG TABLET PO SCH ×9 (04:57→22:00)
[2018-04-28] MEDS: FERROUS SULFATE 325 MG TABLET. PO SCH (04:57)
[2018-04-28 07:01] VITALS: BP 157/92
[2018-04-28] MEDS: metFORMIN XR 500 MG TAB.ER.24H PO SCH (09:14)
[2018-04-28] MEDS: LACTULOSE 20 GM/30 ML SOLUTION. PO SCH (09:14)
[2018-04-28] MEDS: ASPIRIN 81 MG TAB.CHEW PO SCH (09:15)
[2018-04-28] MEDS: FLUTICASONE 50MCG/NASAL SPRAY 16GM BOTTLE. NS SCH (09:15)
[2018-04-28] MEDS: MEMANTINE 10 MG TABLET. PO SCH ×2 (09:15→17:57)
[2018-04-28] MEDS: MAGNESIUM OXIDE 400 MG TABLET PO SCH ×2 (09:15→19:56)
[2018-04-28] MEDS: LINACLOTIDE 145 MCG CAPSULE. PO SCH (09:15)
[2018-04-28] MEDS: LACTOBACILLUS RHAMNOSUS GG 1 CAPSULE. PO SCH ×2 (09:15→19:56)
[2018-04-28] MEDS: DOCUSATE SODIUM 100 MG CAPSULE PO SCH ×2 (09:15→19:56)
[2018-04-28] MEDS: NYSTATIN TOPICAL POWDER 15GM BOTTLE. TP SCH ×2 (09:16→19:59)
[2018-04-28] MEDS: MULTIVITAMIN with MINERAL TABLET. PO SCH (09:16)
[2018-04-28] MEDS: SERTRALINE 25 MG TABLET. PO SCH (09:16)
[2018-04-28] MEDS: RIVASTIGMINE 9.5MG PATCH. TD SCH (09:16)
[2018-04-28] MEDS: PRAVASTATIN 20 MG TABLET. PO SCH (09:16)
[2018-04-28] MEDS: ASCORBIC ACID 500 MG TABLET PO SCH (09:16)
--- NOTE | 2018-04-28 12:56 | OP ---
DATE OF SURGERY: 04/26/2018 This late entry, 04/26/2018, covers elements not covered in my initial note. SUBJECTIVE: I met with the patient in the evening. The patient slept 3-3/4 hours previous night. He has been needy, sarcastic per nursing report. Staffs are weaning him off the one-on-one status. REVIEW OF SYSTEMS: Ambulation impaired, in wheelchair. No CV, , pulmonary, eye, ENT system symptoms on review. MENTAL STATUS EXAM: Reasonably oriented. Speech coherent, rapid at times. Abstraction fair, computation impaired, language function intact. Attention span short. Remains somewhat impulsive. Denies active suicidal ideation. IMPRESSION: Unchanged from initial note. PLAN: Increase Seroquel from 100 mg at bedtime to 150 at bedtime. Maintain rest unchanged from initial note. Depakote level is therapeutic at 51. MAN Rosa PRUETT MD DR: MARCEL/nano JOB#: [id number] / [id number]
[2018-04-28 15:57] VITALS: BP 128/77
--- NOTE | 2018-04-28 17:17 | PN ---
DATE: 04/27/2018 PSYCHIATRIC PROGRESS NOTE This late entry 04/27/2018 covers elements not covered in my initial note. SUBJECTIVE: I met with the patient in the evening. The patient slept 5-1/2 hours previous night. Previous night, he was yelling according to staff and calling the nursing staff "bitches" per nursing report. During the day on 04/27/2018, he has been little better, less anxious, but states he wants his nails trimmed and staff are unable to do this. REVIEW OF SYSTEMS: Ambulation impaired, in wheelchair. No CV, , pulmonary, eye system symptoms on review. MENTAL STATUS EXAM: Oriented reasonably. Speech is coherent, abstraction fair, computation impaired, language function intact, attention span short. Mood and affect somewhat anxious, labile. LABORATORY DATA: Reviewed. IMPRESSION: Unchanged from initial note. PLAN: No change from initial note. MAN Rosa PRUETT MD DR: MARCEL/nano JOB#: [id number] / [id number]
[2018-04-28] MEDS: traZODone 50 MG TABLET. PO SCH ×2 (17:57→19:58)
[2018-04-28] MEDS: MELATONIN 3 MG TABLET PO SCH (19:56)
[2018-04-28] MEDS: CARBIDOPA/LEVODOPA CR 50/200MG TABLET.SA PO SCH (19:57)
[2018-04-28] MEDS: PRAMIPEXOLE 0.25 MG TABLET. PO SCH (19:58)
[2018-04-28] MEDS: DIVALPROEX SODIUM 250 MG TABLET.DR. PO SCH (19:59)
[2018-04-28] MEDS: QUEtiapine 100 MG TABLET. PO SCH (19:59)
--- NOTE | 2018-04-28 22:52 | PDOC ---
Exam Note: Сергей Note: Please also refer to the separate dictated note~for this date of service dictated separately.~Patient seen individually. Discussed the patient with Nursing staff reviewed the chart.~Reviewed interim history and current functioning. Reviewed vital signs,~Labs/ Radiology~and current medications noted below. Continue current treatment with the changes noted in the dictated addendum note Assessment: Vital Signs: Vital Signs Date Time Temp Pulse Resp B/P (MAP) Pulse Ox O2 Delivery O2 Flow Rate FiO2 04/28/18 15:57 98.3 72 22 128/77 (94) 93 Room Air I&O Intake and Output 04/28/18 07:00 Intake Total 1680 ml Output Total 200 ml Balance 1480 ml Intake Oral 1680 ml Output Urine Total 200 ml # Bowel Movements 1 Current Medications: Meds: Current Medications Acetaminophen (Tylenol) 650 mg PRN Q6HRS PRN PO PAIN / TEMP Last administered on 04/28/18at 00:33; Start 04/13/18 at 00:30 Multi-Ingredient Ointment (Analgesic [place]) 1 juan PRN QID PRN TP MUSCLE PAIN; Start 04/13/18 at 00:30 Al Hydroxide/Mg Hydroxide (Mylanta Plus Xs) 15 ml PRN AFTMEALHC PRN PO DYSPEPSIA; Start 04/13/18 at 00:30 Magnesium Hydroxide (Milk Of Magnesia) 2,400 mg PRN QHS PRN PO CONSTIPATION; Start 04/13/18 at 00:30 Olanzapine (ZyPREXA ZYDIS) 5 mg PRN Q2HR PRN PO ANXIETY / AGITATION Last administered on 04/19/18at 17:05; Start 04/13/18 at 02:00 Citalopram Hydrobromide (CeleXA) 40 mg DAILY PO Last administered on at 07:59; Start 04/13/18 at 09:00; Stop 04/16/18 at 16:42; Status DC Diazepam (Valium) 2 mg PRN Q6HRS PRN PO ANXIETY Last administered on 04/26/18at 21:38; Start 04/13/18 at 02:00 Divalproex Sodium (Depakote) 1,500 mg HS PO Last administered on 04/28/18at 19: 59; Start 04/13/18 at 21:00 Melatonin 3 mg HS PO Last administered on 04/28/18 19:56; Start 04/13/18 at 21:00 Memantine (Namenda) 5 mg BIDWMEALS PO Last administered on 04/16/18 08:00; Start 04/13/18 at 08:00; Stop 04/16/18 at 16:42; Status DC Quetiapine Fumarate (SEROquel) 25 mg QHS PO Last administered on 04/16/18 19: 43; Start 04/13/18 at 21:00; Stop 04/17/18 at 16:51; Status DC Rivastigmine (Exelon) 1 patch DAILY TD Last administered on 04/16/18 08:05; Start 04/13/18 at 09:00; Stop 04/16/18 at 16:42; Status DC Trazodone HCl (Desyrel) 25 mg DAILYWSUP PO Last administered on 04/28/18at 17: 57; Start 04/13/18 at 17:00 Trazodone HCl (Desyrel) 75 mg QHS PO Last administered on 04/27/18at 19:53; Start 04/13/18 at 21:00; Stop 04/28/18 at 18:15; Status DC Ascorbic Acid (Vitamin C) 500 mg DAILY PO Last administered on 04/28/18 09:16 ; Start 04/13/18 at 09:00 Carbidopa/Levodopa (Sinemet 25/100) 0.5 tab Q2HR W/A PO Last administered on 04/28/18 19:59; Start 04/13/18 at 06:00 Vitamin D (Vitamin D3) 50,000 unit WEEKLY PO Last administered on 04/27/18at 09 :21; Start 04/13/18 at 09:00 Diclofenac Sodium (Voltaren) 1 juan PRN TID PRN TP MUSCLE PAIN; Start 04/13/18 at 02:00 Ferrous Sulfate (Feosol) 650 mg DAILY06 PO Last administered on 04/28/18at 04: 57; Start 04/13/18 at 06:00 Ibuprofen (Motrin) 600 mg PRN BID PRN PO PAIN Last administered on 04/27/18 05:17; Start 04/13/18 at 02:00 Linaclotide (Linzess) 145 mcg DAILY PO Last administered on 04/28/18 09:15; Start 04/13/18 at 09:00 Nystatin (Nystop) 1 juan BID TP Last administered on 04/28/18 19:59; Start at 09:00 Aspirin (Children'S Aspirin) 81 mg DAILY PO Last administered on 04/28/18 09: 15; Start 04/13/18 at 09:00 Carbidopa/Levodopa (Sinemet Cr) 1 tab.sa HS PO Last administered on 04/28/18 19:57; Start 04/13/18 at 21:00 Docusate Sodium (Colace) 100 mg BID PO Last administered on 04/28/18 19:56; Start 04/13/18 at 09:00 Doxycycline Hyclate (Vibra-Tab) 100 mg BID PO Last administered on 04/21/18 19 :36; Start 04/13/18 at 09:00; Stop 04/22/18 at 08:59; Status DC Fluticasone Propionate (Flonase) 2 spray DAILY NS Last administered on at 08:36; Start 04/13/18 at 09:00 Hydrocortisone (Cortaid) 1 juan PRN BID PRN TP RASH; Start 04/13/18 at 02:00 Lactobacillus Rhamnosus (Culturelle) 1 cap BID PO Last administered on 19:56; Start 04/13/18 at 09:00 Lactulose (Lactulose) 15 gm DAILYWBKFT PO Last administered on 04/28/18at 09:14 ; Start 04/13/18 at 08:00 Magnesium Oxide (Magnesium Oxide) 400 mg BID PO Last administered on 19:56; Start 04/13/18 at 09:00 Metformin HCl (Glucophage Xr) 1,000 mg DAILYWBKFT PO Last administered on 04/28 09:14; Start 04/13/18 at 08:00 Miconazole Nitrate (Monistat-Derm) 1 juan PRN BID PRN TP RASH; Start 04/13/18 at 02:00 Multivitamins/ Calcium (Thera-M Plus) 1 tab DAILY PO Last administered on 04/28 09:16; Start 04/13/18 at 09:00 Pramipexole Dihydrochloride (miraPEX) 0.5 mg HS PO Last administered on 19:58; Start 04/13/18 at 21:00 Pravastatin Sodium (Pravachol) 40 mg DAILY PO Last administered on 04/28/18at 09:16; Start 04/13/18 at 09:00 Memantine (Namenda) 10 mg BIDWMEALS PO Last administered on 04/28/18at 17:57; Start 04/16/18 at 17:00 Sertraline HCl (Zoloft) 50 mg DAILY PO Last administered on 04/19/18at 08:15; Start 04/17/18 at 09:00; Stop 04/20/18 at 05:00; Status DC Rivastigmine (Exelon) 1 patch DAILY TD Last administered on 04/28/18 09:16; Start 04/17/18 at 09:00 Sertraline HCl (Zoloft) 50 mg STK-MED ONCE .ROUTE ; Start 04/17/18 at 07:29; Stop 04/17/18 at 07:30; Status DC Quetiapine Fumarate (SEROquel) 50 mg QHS PO Last administered on 04/18/18at 19: 46; Start 04/17/18 at 21:00; Stop 04/19/18 at 08:01; Status DC Quetiapine Fumarate (SEROquel) 100 mg QHS PO Last administered on 04/25/18at 19: 20; Start 04/19/18 at 21:00; Stop 04/26/18 at 16:32; Status DC Sertraline HCl (Zoloft) 75 mg DAILY PO Last administered on 04/28/18at 09:16; Start 04/20/18 at 09:00 Trazodone HCl (Desyrel) 100 mg PRN QHS PRN PO INSOMNIA; Start 04/24/18 at 18:00 Quetiapine Fumarate (SEROquel) 150 mg QHS PO Last administered on 04/28/18at 19 :59; Start 04/26/18 at 21:00 Trazodone HCl (Desyrel) 150 mg QHS PO Last administered on 04/28/18 19:58; Start 04/28/18 at 21:00 Active Scripts Active Reported Doxycycline Hyclate 100 Mg Tablet.dr 100 Mg PO BID Mag-Al Plus Xs Suspension (Mag Hydrox/Al Hydrox/Simeth) 30 Ml Oral.susp 15 Ml PO PRN AFTMEALHC PRN Lactulose 10 Gm/15 Ml Solution 15 Gm PO DAILYWBKFT EXELON 4.6mg/24hr (Rivastigmine) 1 Each Patch.td24 1 Patch TP DAILY Seroquel (Quetiapine Fumarate) 25 Mg Tablet 1 Tab PO QHS Zyprexa Zydis (Olanzapine) 5 Mg Tab.rapdis 5 Mg PO PRN Q2HR PRN Analgesic [place] (Methyl Salicylate/Menthol) 28 Gm Oint...g. 1 Juan TP QID PRN Namenda (Memantine Hcl) 10 Mg Tablet 0.5 Tab PO BIDWMEALS Melatonin 3 Mg Tablet 1 Tab PO QHS Culturelle (Lactobacillus Rhamnosus Gg) 1 Each Capsule 1 Each PO BID Celexa (Citalopram Hydrobromide) 40 Mg Tablet 40 Mg PO DAILY Glucophage Xr (Metformin Hcl) 500 Mg Tab.er.24h 2 Tab PO DAILYWBKFT Nystatin 15 Gm Powder 1 Juan TP BID Milk Of Magnesia (Magnesium Hydroxide) 2,400 Mg/10 Ml Oral.susp 2,400 Mg PO HS PRN Voltaren (Diclofenac Sodium) 100 Gm Gel..gram. 1 Juan TP PRN TID PRN FOR NECK PAIN Vitamin D3 (Cholecalciferol (Vitamin D3)) 50,000 Unit Capsule 50,000 Unit PO WEEKLY Tylenol (Acetaminophen) 325 Mg Tablet 2 Tab PO PRN Q6HRS PRN Pravastatin Sodium 40 Mg Tablet 40 Mg PO DAILY Carbidopa-Levo Er 50-200 Tab (Carbidopa/Levodopa) 1 Each Tablet.er 1 Each PO HS Sinemet 25-100 Mg Tablet (Carbidopa/Levodopa) 1 Each Tablet 0.5 Tab PO Q2HR W/A Diazepam 2 Mg Tablet 2 Mg PO PRN Q6HRS PRN Mirapex (Pramipexole Di-Hcl) 0.25 Mg Tablet 0.5 Mg PO HS Linzess (Linaclotide) 145 Mcg Capsule 145 Mcg PO DAILY Trazodone Hcl 50 Mg Tablet 75 Mg PO HS Divalproex Sodium 500 Mg Tablet.dr 1,500 Mg PO HS Hydrocortisone 453.6 Gm Cream..g. 1 Juan TP PRN BID PRN Ferrous Sulfate 325 Mg Tablet 650 Mg PO DAILY06 Magnesium Oxide 400 Mg Tablet 400 Mg PO BID Miconazole Nitrate 45 Gm Cream.appl 1 Juan TP PRN BID PRN Aspirin 81 Mg Tab.chew 81 Mg PO DAILY Ibuprofen 400 Mg Tablet 600 Mg PO PRN BID PRN Docusate Sodium 100 Mg Capsule 100 Mg PO BID Fluticasone Propionate Nasal [place] (Fluticasone Propionate) 16 Gm [place].susp 2 [place] NS DAILY Multivitamins (Multivitamin) 1 Each Tablet 1 Tab PO DAILY Trazodone Hcl 50 Mg Tablet 25 Mg PO DAILYWSUP Ascorbic Acid 500 Mg Tablet 500 Mg PO DAILY I have reviewed the current psychotropics carefully including drug interactions. Risk benefit ratio favors no change other than as noted in my dictated progress note. Diagnosis: Problems: (1) Anxiety disorder (2) Lewy body dementia with behavioral disturbance (3) Impulse control disorder (4) Personality disorder in adult SAY PRUETT MD Apr 28, 2018 22:52
[2018-04-29] MEDS: CARBIDOPA/LEVODOPA 25/100MG TABLET PO SCH ×9 (06:03→22:00)
[2018-04-29] MEDS: FERROUS SULFATE 325 MG TABLET. PO SCH (06:03)
[2018-04-29 06:37] VITALS: BP 152/64
[2018-04-29] MEDS: metFORMIN XR 500 MG TAB.ER.24H PO SCH (08:55)
[2018-04-29] MEDS: LACTULOSE 20 GM/30 ML SOLUTION. PO SCH (08:55)
[2018-04-29] MEDS: MEMANTINE 10 MG TABLET. PO SCH ×2 (08:56→17:17)
[2018-04-29] MEDS: FLUTICASONE 50MCG/NASAL SPRAY 16GM BOTTLE. NS SCH (08:57)
[2018-04-29] MEDS: ASPIRIN 81 MG TAB.CHEW PO SCH (08:57)
[2018-04-29] MEDS: LINACLOTIDE 145 MCG CAPSULE. PO SCH (08:58)
[2018-04-29] MEDS: MAGNESIUM OXIDE 400 MG TABLET PO SCH ×2 (08:58→19:43)
[2018-04-29] MEDS: DOCUSATE SODIUM 100 MG CAPSULE PO SCH ×2 (08:58→19:43)
[2018-04-29] MEDS: LACTOBACILLUS RHAMNOSUS GG 1 CAPSULE. PO SCH ×2 (08:58→19:43)
[2018-04-29] MEDS: PRAVASTATIN 20 MG TABLET. PO SCH (08:59)
[2018-04-29] MEDS: SERTRALINE 25 MG TABLET. PO SCH (08:59)
[2018-04-29] MEDS: ASCORBIC ACID 500 MG TABLET PO SCH (08:59)
[2018-04-29] MEDS: RIVASTIGMINE 9.5MG PATCH. TD SCH (08:59)
[2018-04-29] MEDS: NYSTATIN TOPICAL POWDER 15GM BOTTLE. TP SCH ×2 (08:59→19:44)
[2018-04-29] MEDS: MULTIVITAMIN with MINERAL TABLET. PO SCH (08:59)
[2018-04-29 12:11] LABS: BASO # 0.1 x10^3/uL (0.0-0.2); BASO % 1 % (0-3); EOS # 0.2 x10^3/uL (0.0-0.7); EOS % 2 % (0-3); HEMOGLOBIN 13.4 g/dL (13.0-17.5); LYMPH # 1.2 x10^3/uL (1.0-4.8); LYMPH % 11 % (24-48); MEAN CORPUSCULAR HEMOGLOBIN 31 pg (25-35); MEAN CORPUSCULAR HGB CONC 33 g/dL (31-37); MEAN CORPUSCULAR VOLUME 91 fL (79-100); MONO # 1.2 x10^3/uL (0.0-1.1); MONO % 11 % (0-9); NEUT # 7.7 x10^3uL (1.8-7.7); NEUT % 75 % (31-73); PLATELET COUNT 202 x10^3/uL (140-400); RED BLOOD COUNT 4.38 x10^6/uL (4.30-5.70); RED CELL DISTRIBUTION WIDTH 13.7 % (11.5-14.5); WHITE BLOOD COUNT 10.3 x10^3/uL (4.0-11.0)
[2018-04-29 12:25] LABS: ALBUMIN 3.3 g/dL (3.4-5.0); ALBUMIN/GLOBULIN RATIO 0.9 (1.0-1.7); CALCIUM 9.2 mg/dL (8.5-10.1); CREATININE 0.9 mg/dL (0.7-1.3); GFR 84.4; POTASSIUM 4.4 mmol/L (3.5-5.1); TOTAL BILIRUBIN 0.7 mg/dL (0.2-1.0); TOTAL PROTEIN 6.9 g/dL (6.4-8.2)
[2018-04-29 12:45] LABS: % BANDS 2 % (0-9); % EOS 2 % (0-5); % LYMPHS 12 % (24-48); % MONOS 12 % (0-10); % SEGS 72 % (35-66)
[2018-04-29 12:46] LABS: PLT ESTIMATE ADEQUATE (ADEQUATE)
--- NOTE | 2018-04-29 13:49 | PN ---
DATE: 04/28/2018 PSYCHIATRIC PROGRESS NOTE This late entry 04/28/2018 covers elements not covered in my initial note. SUBJECTIVE: I met with the patient in the evening. The patient slept just 1-1/2 hours previous night. He has been agitated, especially when nursing staff were assisting him with cares. He gets somewhat frustrated, he expresses it openly, and he was frustrated about his room light being kept on so that nursing staff could observe him given his suicide gesture on the unit several days ago. We are slowly taking him off the one-on-one status. I processed this with him, he is agreeable to having the exit light turned on him so that his main light is turned off, and they should still provide enough light for the staff to observe him. REVIEW OF SYSTEMS: Ambulation impaired. Speech has no CV, , pulmonary, eye system symptoms on review, has vague somatic symptoms. MENTAL STATUS EXAM: The patient is reasonably oriented. Speech is coherent, rapid at times. Abstraction fair, computation impaired, language function intact, attention span short. Mood and affect still somewhat anxious, labile at times, but improved. No active suicidal or homicidal ideation. LABORATORY DATA: Reviewed. IMPRESSION: Bipolar 1 disorder, mixed. Early Lewy body dementia. PLAN: Increase bedtime trazodone from 75 mg to 150 mg on account of his ongoing insomnia. Continue rest of the psychotropics unchanged from initial note. MAN Rosa PRUETT MD DR: MARCEL/nano JOB#: [id number] / [id number]
[2018-04-29] MEDS: IBUPROFEN 600 MG TABLET. PO PRN (15:25)
[2018-04-29 16:05] VITALS: BP 128/71
--- NOTE | 2018-04-29 16:29 | RAD ---
AP and Lateral Views of the Chest 04/29/2018 12:11 PM Indication: cough with yellow sputum Comparison: None available Findings: Probable neurostimulator device seen on the right. This obscures the right hilum. No pneumothorax is identified. No definitive pleural effusion is seen. No focal consolidative infiltrate is seen. Heart size is mildly prominent. Bilateral chest wall deformity noted laterally. There are plate and screw constructs spanning ribs the right lateral seventh and eighth ribs . Degenerative changes of the thoracic spine are seen. Tortuosity of the thoracic aorta is noted. IMPRESSION: Chronic changes as described without evidence of acute cardiopulmonary process Electronically signed by: Mathew Donovan MD (04/29/2018 4:26 PM) [id number]
[2018-04-29] MEDS: traZODone 50 MG TABLET. PO SCH ×2 (17:17→19:44)
[2018-04-29] MEDS: DIVALPROEX SODIUM 250 MG TABLET.DR. PO SCH (19:43)
[2018-04-29] MEDS: PRAMIPEXOLE 0.25 MG TABLET. PO SCH (19:43)
[2018-04-29] MEDS: CARBIDOPA/LEVODOPA CR 50/200MG TABLET.SA PO SCH (19:43)
[2018-04-29] MEDS: MELATONIN 3 MG TABLET PO SCH (19:43)
[2018-04-29] MEDS: QUEtiapine 100 MG TABLET. PO SCH (19:44)
[2018-04-29] MEDS: diazePAM 2 MG TABLET PO PRN (19:50)
[2018-04-29] MEDS: ACETAMINOPHEN 325 MG TABLET PO PRN (19:50)
--- NOTE | 2018-04-29 23:03 | PDOC ---
Exam Note: Сергей Note: Please also refer to the separate dictated note~for this date of service dictated separately.~Patient seen individually. Discussed the patient with Nursing staff reviewed the chart.~Reviewed interim history and current functioning. Reviewed vital signs,~Labs/ Radiology~and current medications noted below. Continue current treatment with the changes noted in the dictated addendum note Assessment: Vital Signs: Vital Signs Date Time Temp Pulse Resp B/P (MAP) Pulse Ox O2 Delivery O2 Flow Rate FiO2 04/29/18 16:05 99.5 53 22 128/71 (90) 94 04/29/18 06:37 Room Air I&O Intake and Output 04/29/18 07:00 Intake Total 1880 ml Balance 1880 ml Intake Oral 1880 ml Labs: Laboratory Tests Test 04/29/18 12:00 White Blood Count 10.3 x10^3/uL (4.0-11.0) Red Blood Count 4.38 x10^6/uL (4.30-5.70) Hemoglobin 13.4 g/dL (13.0-17.5) Hematocrit 40.0 % (39.0-53.0) Mean Corpuscular Volume 91 fL (79-100) Mean Corpuscular Hemoglobin 31 pg (25-35) Mean Corpuscular Hemoglobin Concent 33 g/dL (31-37) Red Cell Distribution Width 13.7 % (11.5-14.5) Platelet Count 202 x10^3/uL (140-400) Neutrophils (%) (Auto) 75 % (31-73) H Lymphocytes (%) (Auto) 11 % (24-48) L Monocytes (%) (Auto) 11 % (0-9) H Eosinophils (%) (Auto) 2 % (0-3) Basophils (%) (Auto) 1 % (0-3) Neutrophils # (Auto) 7.7 x10^3uL (1.8-7.7) Lymphocytes # (Auto) 1.2 x10^3/uL (1.0-4.8) Monocytes # (Auto) 1.2 x10^3/uL (0.0-1.1) H Eosinophils # (Auto) 0.2 x10^3/uL (0.0-0.7) Basophils # (Auto) 0.1 x10^3/uL (0.0-0.2) Segmented Neutrophils % 72 % (35-66) H Band Neutrophils % 2 % (0-9) Lymphocytes % 12 % (24-48) L Monocytes % 12 % (0-10) H Eosinophils % 2 % (0-5) Platelet Estimate Adequate (ADEQUATE) Sodium Level 137 mmol/L (136-145) Potassium Level 4.4 mmol/L (3.5-5.1) Chloride Level 99 mmol/L (98-107) Carbon Dioxide Level 33 mmol/L (21-32) H Anion Gap 5 (6-14) L Blood Urea Nitrogen 12 mg/dL (8-26) Creatinine 0.9 mg/dL (0.7-1.3) Estimated GFR (Cockcroft-Gault) 84.4 BUN/Creatinine Ratio 13 (6-20) Glucose Level 99 mg/dL (70-99) Calcium Level 9.2 mg/dL (8.5-10.1) Total Bilirubin 0.7 mg/dL (0.2-1.0) Aspartate Amino Transferase (AST) 17 U/L (15-37) Alanine Aminotransferase (ALT) 22 U/L (16-63) Alkaline Phosphatase 58 U/L (46-116) Total Protein 6.9 g/dL (6.4-8.2) Albumin 3.3 g/dL (3.4-5.0) L Albumin/Globulin Ratio 0.9 (1.0-1.7) L Current Medications: Meds: Current Medications Acetaminophen (Tylenol) 650 mg PRN Q6HRS PRN PO PAIN / TEMP Last administered on 04/29/18at 19:50; Start 04/13/18 at 00:30 Multi-Ingredient Ointment (Analgesic [place]) 1 juan PRN QID PRN TP MUSCLE PAIN; Start 04/13/18 at 00:30 Al Hydroxide/Mg Hydroxide (Mylanta Plus Xs) 15 ml PRN AFTMEALHC PRN PO DYSPEPSIA; Start 04/13/18 at 00:30 Magnesium Hydroxide (Milk Of Magnesia) 2,400 mg PRN QHS PRN PO CONSTIPATION; Start 04/13/18 at 00:30 Olanzapine (ZyPREXA ZYDIS) 5 mg PRN Q2HR PRN PO ANXIETY / AGITATION Last administered on 04/19/18at 17:05; Start 04/13/18 at 02:00 Citalopram Hydrobromide (CeleXA) 40 mg DAILY PO Last administered on at 07:59; Start 04/13/18 at 09:00; Stop 04/16/18 at 16:42; Status DC Diazepam (Valium) 2 mg PRN Q6HRS PRN PO ANXIETY Last administered on at 19:50; Start 04/13/18 at 02:00 Divalproex Sodium (Depakote) 1,500 mg HS PO Last administered on 04/29/18at 19: 43; Start 04/13/18 at 21:00 Melatonin 3 mg HS PO Last administered on 04/29/18 19:43; Start 04/13/18 at 21:00 Memantine (Namenda) 5 mg BIDWMEALS PO Last administered on 04/16/18at 08:00; Start 04/13/18 at 08:00; Stop 04/16/18 at 16:42; Status DC Quetiapine Fumarate (SEROquel) 25 mg QHS PO Last administered on 04/16/18at 19: 43; Start 04/13/18 at 21:00; Stop 04/17/18 at 16:51; Status DC Rivastigmine (Exelon) 1 patch DAILY TD Last administered on 04/16/18at 08:05; Start 04/13/18 at 09:00; Stop 04/16/18 at 16:42; Status DC Trazodone HCl (Desyrel) 25 mg DAILYWSUP PO Last administered on 04/29/18 17: 17; Start 04/13/18 at 17:00 Trazodone HCl (Desyrel) 75 mg QHS PO Last administered on 04/27/18at 19:53; Start 04/13/18 at 21:00; Stop 04/28/18 at 18:15; Status DC Ascorbic Acid (Vitamin C) 500 mg DAILY PO Last administered on 04/29/18at 08:59 ; Start 04/13/18 at 09:00 Carbidopa/Levodopa (Sinemet 25/100) 0.5 tab Q2HR W/A PO Last administered on 04/29/18at 17:17; Start 04/13/18 at 06:00 Vitamin D (Vitamin D3) 50,000 unit WEEKLY PO Last administered on 04/27/18 09 :21; Start 04/13/18 at 09:00 Diclofenac Sodium (Voltaren) 1 juan PRN TID PRN TP MUSCLE PAIN; Start 04/13/18 at 02:00 Ferrous Sulfate (Feosol) 650 mg DAILY06 PO Last administered on 04/29/18 06: 03; Start 04/13/18 at 06:00 Ibuprofen (Motrin) 600 mg PRN BID PRN PO PAIN Last administered on 04/29/18 15:25; Start 04/13/18 at 02:00 Linaclotide (Linzess) 145 mcg DAILY PO Last administered on 04/29/18 08:58; Start 04/13/18 at 09:00 Nystatin (Nystop) 1 juan BID TP Last administered on 04/29/18 19:44; Start at 09:00 Aspirin (Children'S Aspirin) 81 mg DAILY PO Last administered on 04/29/18 08: 57; Start 04/13/18 at 09:00 Carbidopa/Levodopa (Sinemet Cr) 1 tab.sa HS PO Last administered on 04/29/18 19:43; Start 04/13/18 at 21:00 Docusate Sodium (Colace) 100 mg BID PO Last administered on 04/29/18 19:43; Start 04/13/18 at 09:00 Doxycycline Hyclate (Vibra-Tab) 100 mg BID PO Last administered on 04/21/18 19 :36; Start 04/13/18 at 09:00; Stop 04/22/18 at 08:59; Status DC Fluticasone Propionate (Flonase) 2 spray DAILY NS Last administered on at 08:36; Start 04/13/18 at 09:00 Hydrocortisone (Cortaid) 1 juan PRN BID PRN TP RASH; Start 04/13/18 at 02:00 Lactobacillus Rhamnosus (Culturelle) 1 cap BID PO Last administered on 19:43; Start 04/13/18 at 09:00 Lactulose (Lactulose) 15 gm DAILYWBKFT PO Last administered on 04/29/18 08:55 ; Start 04/13/18 at 08:00 Magnesium Oxide (Magnesium Oxide) 400 mg BID PO Last administered on 19:43; Start 04/13/18 at 09:00 Metformin HCl (Glucophage Xr) 1,000 mg DAILYWBKFT PO Last administered on 04/29 08:55; Start 04/13/18 at 08:00 Miconazole Nitrate (Monistat-Derm) 1 juan PRN BID PRN TP RASH; Start 04/13/18 at 02:00 Multivitamins/ Calcium (Thera-M Plus) 1 tab DAILY PO Last administered on 04/29 08:59; Start 04/13/18 at 09:00 Pramipexole Dihydrochloride (miraPEX) 0.5 mg HS PO Last administered on 19:43; Start 04/13/18 at 21:00 Pravastatin Sodium (Pravachol) 40 mg DAILY PO Last administered on 04/29/18 08:59; Start 04/13/18 at 09:00 Memantine (Namenda) 10 mg BIDWMEALS PO Last administered on 04/29/18 17:17; Start 04/16/18 at 17:00 Sertraline HCl (Zoloft) 50 mg DAILY PO Last administered on 04/19/18 08:15; Start 04/17/18 at 09:00; Stop 04/20/18 at 05:00; Status DC Rivastigmine (Exelon) 1 patch DAILY TD Last administered on 04/29/18 08:59; Start 04/17/18 at 09:00 Sertraline HCl (Zoloft) 50 mg STK-MED ONCE .ROUTE ; Start 04/17/18 at 07:29; Stop 04/17/18 at 07:30; Status DC Quetiapine Fumarate (SEROquel) 50 mg QHS PO Last administered on 04/18/18at 19: 46; Start 04/17/18 at 21:00; Stop 04/19/18 at 08:01; Status DC Quetiapine Fumarate (SEROquel) 100 mg QHS PO Last administered on 04/25/18 19: 20; Start 04/19/18 at 21:00; Stop 04/26/18 at 16:32; Status DC Sertraline HCl (Zoloft) 75 mg DAILY PO Last administered on 11/12/18at 08:59; Start 04/20/18 at 09:00 Trazodone HCl (Desyrel) 100 mg PRN QHS PRN PO INSOMNIA; Start 04/24/18 at 18:00 Quetiapine Fumarate (SEROquel) 150 mg QHS PO Last administered on 04/29/18at 19 :44; Start 04/26/18 at 21:00 Trazodone HCl (Desyrel) 150 mg QHS PO Last administered on 04/29/18at 19:44; Start 04/28/18 at 21:00 Active Scripts Active Reported Doxycycline Hyclate 100 Mg Tablet.dr 100 Mg PO BID Mag-Al Plus Xs Suspension (Mag Hydrox/Al Hydrox/Simeth) 30 Ml Oral.susp 15 Ml PO PRN AFTMEALHC PRN Lactulose 10 Gm/15 Ml Solution 15 Gm PO DAILYWBKFT EXELON 4.6mg/24hr (Rivastigmine) 1 Each Patch.td24 1 Patch TP DAILY Seroquel (Quetiapine Fumarate) 25 Mg Tablet 1 Tab PO QHS Zyprexa Zydis (Olanzapine) 5 Mg Tab.rapdis 5 Mg PO PRN Q2HR PRN Analgesic [place] (Methyl Salicylate/Menthol) 28 Gm Oint...g. 1 Juan TP QID PRN Namenda (Memantine Hcl) 10 Mg Tablet 0.5 Tab PO BIDWMEALS Melatonin 3 Mg Tablet 1 Tab PO QHS Culturelle (Lactobacillus Rhamnosus Gg) 1 Each Capsule 1 Each PO BID Celexa (Citalopram Hydrobromide) 40 Mg Tablet 40 Mg PO DAILY Glucophage Xr (Metformin Hcl) 500 Mg Tab.er.24h 2 Tab PO DAILYWBKFT Nystatin 15 Gm Powder 1 Juan TP BID Milk Of Magnesia (Magnesium Hydroxide) 2,400 Mg/10 Ml Oral.susp 2,400 Mg PO HS PRN Voltaren (Diclofenac Sodium) 100 Gm Gel..gram. 1 Juan TP PRN TID PRN FOR NECK PAIN Vitamin D3 (Cholecalciferol (Vitamin D3)) 50,000 Unit Capsule 50,000 Unit PO WEEKLY Tylenol (Acetaminophen) 325 Mg Tablet 2 Tab PO PRN Q6HRS PRN Pravastatin Sodium 40 Mg Tablet 40 Mg PO DAILY Carbidopa-Levo Er 50-200 Tab (Carbidopa/Levodopa) 1 Each Tablet.er 1 Each PO HS Sinemet 25-100 Mg Tablet (Carbidopa/Levodopa) 1 Each Tablet 0.5 Tab PO Q2HR W/A Diazepam 2 Mg Tablet 2 Mg PO PRN Q6HRS PRN Mirapex (Pramipexole Di-Hcl) 0.25 Mg Tablet 0.5 Mg PO HS Linzess (Linaclotide) 145 Mcg Capsule 145 Mcg PO DAILY Trazodone Hcl 50 Mg Tablet 75 Mg PO HS Divalproex Sodium 500 Mg Tablet.dr 1,500 Mg PO HS Hydrocortisone 453.6 Gm Cream..g. 1 Juan TP PRN BID PRN Ferrous Sulfate 325 Mg Tablet 650 Mg PO DAILY06 Magnesium Oxide 400 Mg Tablet 400 Mg PO BID Miconazole Nitrate 45 Gm Cream.appl 1 Juan TP PRN BID PRN Aspirin 81 Mg Tab.chew 81 Mg PO DAILY Ibuprofen 400 Mg Tablet 600 Mg PO PRN BID PRN Docusate Sodium 100 Mg Capsule 100 Mg PO BID Fluticasone Propionate Nasal [place] (Fluticasone Propionate) 16 Gm Remer.susp 2 Remer NS DAILY Multivitamins (Multivitamin) 1 Each Tablet 1 Tab PO DAILY Trazodone Hcl 50 Mg Tablet 25 Mg PO DAILYWSUP Ascorbic Acid 500 Mg Tablet 500 Mg PO DAILY I have reviewed the current psychotropics carefully including drug interactions. Risk benefit ratio favors no change other than as noted in my dictated progress note. Diagnosis: Problems: (1) Anxiety disorder (2) Lewy body dementia with behavioral disturbance (3) Impulse control disorder (4) Personality disorder in adult SAY PRUETT MD Apr 29, 2018 23:03
[2018-04-30] MEDS: IBUPROFEN 600 MG TABLET. PO PRN (01:54)
[2018-04-30 04:46] VITALS: BP 162/88
[2018-04-30] MEDS: ACETAMINOPHEN 325 MG TABLET PO PRN (05:18)
[2018-04-30] MEDS: CARBIDOPA/LEVODOPA 25/100MG TABLET PO SCH ×9 (05:18→22:00)
[2018-04-30] MEDS: FERROUS SULFATE 325 MG TABLET. PO SCH (05:18)
[2018-04-30 05:51] VITALS: BP 129/75
[2018-04-30] MEDS: RIVASTIGMINE 9.5MG PATCH. TD SCH (10:11)
[2018-04-30] MEDS: LACTOBACILLUS RHAMNOSUS GG 1 CAPSULE. PO SCH ×2 (10:11→20:04)
[2018-04-30] MEDS: MAGNESIUM OXIDE 400 MG TABLET PO SCH ×2 (10:12→20:05)
[2018-04-30] MEDS: ASCORBIC ACID 500 MG TABLET PO SCH (10:12)
[2018-04-30] MEDS: MULTIVITAMIN with MINERAL TABLET. PO SCH (10:12)
[2018-04-30] MEDS: SERTRALINE 25 MG TABLET. PO SCH (10:12)
[2018-04-30] MEDS: MEMANTINE 10 MG TABLET. PO SCH ×2 (10:12→16:28)
[2018-04-30] MEDS: metFORMIN XR 500 MG TAB.ER.24H PO SCH (10:12)
[2018-04-30] MEDS: LINACLOTIDE 145 MCG CAPSULE. PO SCH (10:12)
[2018-04-30] MEDS: DOCUSATE SODIUM 100 MG CAPSULE PO SCH ×2 (10:12→20:05)
[2018-04-30] MEDS: NYSTATIN TOPICAL POWDER 15GM BOTTLE. TP SCH ×2 (10:13→20:06)
[2018-04-30] MEDS: FLUTICASONE 50MCG/NASAL SPRAY 16GM BOTTLE. NS SCH (10:13)
[2018-04-30] MEDS: PRAVASTATIN 20 MG TABLET. PO SCH (10:13)
[2018-04-30] MEDS: LACTULOSE 20 GM/30 ML SOLUTION. PO SCH (10:13)
[2018-04-30] MEDS: ASPIRIN 81 MG TAB.CHEW PO SCH (10:15)
[2018-04-30 15:29] VITALS: BP 133/75
[2018-04-30] MEDS: traZODone 50 MG TABLET. PO SCH ×2 (16:28→20:02)
[2018-04-30] MEDS: DIVALPROEX SODIUM 250 MG TABLET.DR. PO SCH (20:02)
[2018-04-30] MEDS: QUEtiapine 100 MG TABLET. PO SCH (20:03)
[2018-04-30] MEDS: MELATONIN 3 MG TABLET PO SCH (20:04)
[2018-04-30] MEDS: PRAMIPEXOLE 0.25 MG TABLET. PO SCH (20:04)
--- NOTE | 2018-04-30 20:30 | PN ---
DATE: 04/29/2018 PSYCHIATRIC PROGRESS NOTE This late entry 04/29/2018 covers elements not covered in my initial note. SUBJECTIVE: I met with the patient in the early afternoon. The patient slept 4 hours previous night. I met with him in his room at some length. Per nursing report, he is "attention seeking." REVIEW OF SYSTEMS: Ambulation impaired, in wheelchair, complains of some upper respiratory tract infection symptoms and cough. WBCs have increased from 6 to 10 in 2 days and he is having a CBC, CMP, chest x-ray per Dr. Suarez. MENTAL STATUS EXAM: The patient is reasonably oriented. Speech coherent, somewhat pressured, but typical for him. Abstraction fair, computation impaired, language function intact, attention span short. Mood and affect remain somewhat anxious, labile, but better than before. No suicidal or homicidal ideation. LABORATORY DATA: Reviewed. IMPRESSION: Bipolar 1 disorder, unspecified; anxiety disorder, unspecified; possible symptoms of early Lewy body dementia. Rest unchanged. PLAN: No change from initial note. MAN Rosa PRUETT MD DR: MARCEL/nano JOB#: [id number] / [id number]
[2018-04-30] MEDS: CARBIDOPA/LEVODOPA CR 50/200MG TABLET.SA PO SCH (20:55)
--- NOTE | 2018-04-30 22:43 | PDOC ---
Exam Note: Сергей Note: Please also refer to the separate dictated note~for this date of service dictated separately.~Patient seen individually. Discussed the patient with Nursing staff reviewed the chart.~Reviewed interim history and current functioning. Reviewed vital signs,~Labs/ Radiology~and current medications noted below. Continue current treatment with the changes noted in the dictated addendum note Assessment: Vital Signs: Vital Signs Date Time Temp Pulse Resp B/P (MAP) Pulse Ox O2 Delivery O2 Flow Rate FiO2 04/30/18 15:29 98.8 70 18 133/75 (94) 94 Room Air I&O Intake and Output 04/30/18 07:00 Intake Total 840 ml Balance 840 ml Intake Oral 840 ml # Voids 1 Current Medications: Meds: Current Medications Acetaminophen (Tylenol) 650 mg PRN Q6HRS PRN PO PAIN / TEMP Last administered on 04/30/18at 05:18; Start 04/13/18 at 00:30 Multi-Ingredient Ointment (Analgesic [place]) 1 juan PRN QID PRN TP MUSCLE PAIN; Start 04/13/18 at 00:30 Al Hydroxide/Mg Hydroxide (Mylanta Plus Xs) 15 ml PRN AFTMEALHC PRN PO DYSPEPSIA; Start 04/13/18 at 00:30 Magnesium Hydroxide (Milk Of Magnesia) 2,400 mg PRN QHS PRN PO CONSTIPATION; Start 04/13/18 at 00:30 Olanzapine (ZyPREXA ZYDIS) 5 mg PRN Q2HR PRN PO ANXIETY / AGITATION Last administered on 04/19/18at 17:05; Start 04/13/18 at 02:00 Citalopram Hydrobromide (CeleXA) 40 mg DAILY PO Last administered on at 07:59; Start 04/13/18 at 09:00; Stop 04/16/18 at 16:42; Status DC Diazepam (Valium) 2 mg PRN Q6HRS PRN PO ANXIETY Last administered on at 19:50; Start 04/13/18 at 02:00 Divalproex Sodium (Depakote) 1,500 mg HS PO Last administered on 04/30/18at 20: 02; Start 04/13/18 at 21:00 Melatonin 3 mg HS PO Last administered on 04/30/18at 20:04; Start 04/13/18 at 21:00 Memantine (Namenda) 5 mg BIDWMEALS PO Last administered on 04/16/18at 08:00; Start 04/13/18 at 08:00; Stop 04/16/18 at 16:42; Status DC Quetiapine Fumarate (SEROquel) 25 mg QHS PO Last administered on 04/16/18at 19: 43; Start 04/13/18 at 21:00; Stop 04/17/18 at 16:51; Status DC Rivastigmine (Exelon) 1 patch DAILY TD Last administered on 04/16/18at 08:05; Start 04/13/18 at 09:00; Stop 04/16/18 at 16:42; Status DC Trazodone HCl (Desyrel) 25 mg DAILYWSUP PO Last administered on 04/30/18at 16: 28; Start 04/13/18 at 17:00 Trazodone HCl (Desyrel) 75 mg QHS PO Last administered on 04/27/18at 19:53; Start 04/13/18 at 21:00; Stop 04/28/18 at 18:15; Status DC Ascorbic Acid (Vitamin C) 500 mg DAILY PO Last administered on 04/30/18at 10:12 ; Start 04/13/18 at 09:00 Carbidopa/Levodopa (Sinemet 25/100) 0.5 tab Q2HR W/A PO Last administered on 04/30/18at 20:05; Start 04/13/18 at 06:00 Vitamin D (Vitamin D3) 50,000 unit WEEKLY PO Last administered on 04/27/18at 09 :21; Start 04/13/18 at 09:00 Diclofenac Sodium (Voltaren) 1 juan PRN TID PRN TP MUSCLE PAIN; Start 04/13/18 at 02:00 Ferrous Sulfate (Feosol) 650 mg DAILY06 PO Last administered on 04/30/18at 05: 18; Start 04/13/18 at 06:00 Ibuprofen (Motrin) 600 mg PRN BID PRN PO PAIN Last administered on 04/30/18at 01:54; Start 04/13/18 at 02:00 Linaclotide (Linzess) 145 mcg DAILY PO Last administered on 04/30/18at 10:12; Start 04/13/18 at 09:00 Nystatin (Nystop) 1 juan BID TP Last administered on 04/30/18at 20:06; Start at 09:00 Aspirin (Children'S Aspirin) 81 mg DAILY PO Last administered on 04/30/18 10: 15; Start 04/13/18 at 09:00 Carbidopa/Levodopa (Sinemet Cr) 1 tab.sa HS PO Last administered on 04/30/18 20:55; Start 04/13/18 at 21:00 Docusate Sodium (Colace) 100 mg BID PO Last administered on 04/30/18 20:05; Start 04/13/18 at 09:00 Doxycycline Hyclate (Vibra-Tab) 100 mg BID PO Last administered on 04/21/18 19 :36; Start 04/13/18 at 09:00; Stop 04/22/18 at 08:59; Status DC Fluticasone Propionate (Flonase) 2 spray DAILY NS Last administered on at 10:13; Start 04/13/18 at 09:00 Hydrocortisone (Cortaid) 1 juan PRN BID PRN TP RASH; Start 04/13/18 at 02:00 Lactobacillus Rhamnosus (Culturelle) 1 cap BID PO Last administered on at 20:04; Start 04/13/18 at 09:00 Lactulose (Lactulose) 15 gm DAILYWBKFT PO Last administered on 04/30/18at 10:13 ; Start 04/13/18 at 08:00 Magnesium Oxide (Magnesium Oxide) 400 mg BID PO Last administered on at 20:05; Start 04/13/18 at 09:00 Metformin HCl (Glucophage Xr) 1,000 mg DAILYWBKFT PO Last administered on 04/30at 10:12; Start 04/13/18 at 08:00 Miconazole Nitrate (Monistat-Derm) 1 juan PRN BID PRN TP RASH; Start 04/13/18 at 02:00 Multivitamins/ Calcium (Thera-M Plus) 1 tab DAILY PO Last administered on 04/30at 10:12; Start 04/13/18 at 09:00 Pramipexole Dihydrochloride (miraPEX) 0.5 mg HS PO Last administered on at 20:04; Start 04/13/18 at 21:00 Pravastatin Sodium (Pravachol) 40 mg DAILY PO Last administered on 04/30/18at 10:13; Start 04/13/18 at 09:00 Memantine (Namenda) 10 mg BIDWMEALS PO Last administered on 04/30/18at 16:28; Start 04/16/18 at 17:00 Sertraline HCl (Zoloft) 50 mg DAILY PO Last administered on 04/19/18at 08:15; Start 04/17/18 at 09:00; Stop 04/20/18 at 05:00; Status DC Rivastigmine (Exelon) 1 patch DAILY TD Last administered on 04/30/18at 10:11; Start 04/17/18 at 09:00 Sertraline HCl (Zoloft) 50 mg STK-MED ONCE .ROUTE ; Start 04/17/18 at 07:29; Stop 04/17/18 at 07:30; Status DC Quetiapine Fumarate (SEROquel) 50 mg QHS PO Last administered on 04/18/18at 19: 46; Start 04/17/18 at 21:00; Stop 04/19/18 at 08:01; Status DC Quetiapine Fumarate (SEROquel) 100 mg QHS PO Last administered on 04/25/18at 19: 20; Start 04/19/18 at 21:00; Stop 04/26/18 at 16:32; Status DC Sertraline HCl (Zoloft) 75 mg DAILY PO Last administered on 04/30/18at 10:12; Start 04/20/18 at 09:00 Trazodone HCl (Desyrel) 100 mg PRN QHS PRN PO INSOMNIA; Start 04/24/18 at 18:00 Quetiapine Fumarate (SEROquel) 150 mg QHS PO Last administered on 04/30/18at 20 :03; Start 04/26/18 at 21:00 Trazodone HCl (Desyrel) 150 mg QHS PO Last administered on 04/30/18at 20:02; Start 04/28/18 at 21:00 Guaifenesin (Mucinex Er) 600 mg BID PO ; Start 04/30/18 at 21:00; Stop at 21:00; Status DC Guaifenesin (Mucinex Er) 600 mg BID PO Last administered on 04/30/18at 20:04; Start 04/30/18 at 14:00 Active Scripts Active Reported Doxycycline Hyclate 100 Mg Tablet.dr 100 Mg PO BID Mag-Al Plus Xs Suspension (Mag Hydrox/Al Hydrox/Simeth) 30 Ml Oral.susp 15 Ml PO PRN AFTMEALHC PRN Lactulose 10 Gm/15 Ml Solution 15 Gm PO DAILYWBKFT EXELON 4.6mg/24hr (Rivastigmine) 1 Each Patch.td24 1 Patch TP DAILY Seroquel (Quetiapine Fumarate) 25 Mg Tablet 1 Tab PO QHS Zyprexa Zydis (Olanzapine) 5 Mg Tab.rapdis 5 Mg PO PRN Q2HR PRN Analgesic [place] (Methyl Salicylate/Menthol) 28 Gm Oint...g. 1 Juan TP QID PRN Namenda (Memantine Hcl) 10 Mg Tablet 0.5 Tab PO BIDWMEALS Melatonin 3 Mg Tablet 1 Tab PO QHS Culturelle (Lactobacillus Rhamnosus Gg) 1 Each Capsule 1 Each PO BID Celexa (Citalopram Hydrobromide) 40 Mg Tablet 40 Mg PO DAILY Glucophage Xr (Metformin Hcl) 500 Mg Tab.er.24h 2 Tab PO DAILYWBKFT Nystatin 15 Gm Powder 1 Juan TP BID Milk Of Magnesia (Magnesium Hydroxide) 2,400 Mg/10 Ml Oral.susp 2,400 Mg PO HS PRN Voltaren (Diclofenac Sodium) 100 Gm Gel..gram. 1 Juan TP PRN TID PRN FOR NECK PAIN Vitamin D3 (Cholecalciferol (Vitamin D3)) 50,000 Unit Capsule 50,000 Unit PO WEEKLY Tylenol (Acetaminophen) 325 Mg Tablet 2 Tab PO PRN Q6HRS PRN Pravastatin Sodium 40 Mg Tablet 40 Mg PO DAILY Carbidopa-Levo Er 50-200 Tab (Carbidopa/Levodopa) 1 Each Tablet.er 1 Each PO HS Sinemet 25-100 Mg Tablet (Carbidopa/Levodopa) 1 Each Tablet 0.5 Tab PO Q2HR W/A Diazepam 2 Mg Tablet 2 Mg PO PRN Q6HRS PRN Mirapex (Pramipexole Di-Hcl) 0.25 Mg Tablet 0.5 Mg PO HS Linzess (Linaclotide) 145 Mcg Capsule 145 Mcg PO DAILY Trazodone Hcl 50 Mg Tablet 75 Mg PO HS Divalproex Sodium 500 Mg Tablet.dr 1,500 Mg PO HS Hydrocortisone 453.6 Gm Cream..g. 1 Juan TP PRN BID PRN Ferrous Sulfate 325 Mg Tablet 650 Mg PO DAILY06 Magnesium Oxide 400 Mg Tablet 400 Mg PO BID Miconazole Nitrate 45 Gm Cream.appl 1 Juan TP PRN BID PRN Aspirin 81 Mg Tab.chew 81 Mg PO DAILY Ibuprofen 400 Mg Tablet 600 Mg PO PRN BID PRN Docusate Sodium 100 Mg Capsule 100 Mg PO BID Fluticasone Propionate Nasal [place] (Fluticasone Propionate) 16 Gm [place].susp 2 [place] NS DAILY Multivitamins (Multivitamin) 1 Each Tablet 1 Tab PO DAILY Trazodone Hcl 50 Mg Tablet 25 Mg PO DAILYWSUP Ascorbic Acid 500 Mg Tablet 500 Mg PO DAILY I have reviewed the current psychotropics carefully including drug interactions. Risk benefit ratio favors no change other than as noted in my dictated progress note. Diagnosis: Problems: (1) Anxiety disorder (2) Lewy body dementia with behavioral disturbance (3) Impulse control disorder (4) Personality disorder in adult SAY PRUETT MD Apr 30, 2018 22:43
[2018-05-01 05:54] VITALS: BP 112/69
[2018-05-01] MEDS: CARBIDOPA/LEVODOPA 25/100MG TABLET PO SCH ×9 (06:06→22:00)
[2018-05-01] MEDS: FERROUS SULFATE 325 MG TABLET. PO SCH (06:07)
[2018-05-01] MEDS: DOCUSATE SODIUM 100 MG CAPSULE PO SCH ×2 (08:38→19:17)
[2018-05-01] MEDS: metFORMIN XR 500 MG TAB.ER.24H PO SCH (08:38)
[2018-05-01] MEDS: NYSTATIN TOPICAL POWDER 15GM BOTTLE. TP SCH ×2 (08:38→19:21)
[2018-05-01] MEDS: LACTULOSE 20 GM/30 ML SOLUTION. PO SCH ×2 (08:38→09:30)
[2018-05-01] MEDS: LACTOBACILLUS RHAMNOSUS GG 1 CAPSULE. PO SCH ×2 (08:38→19:17)
[2018-05-01] MEDS: ASPIRIN 81 MG TAB.CHEW PO SCH (08:38)
[2018-05-01] MEDS: PRAVASTATIN 20 MG TABLET. PO SCH (08:38)
[2018-05-01] MEDS: ASCORBIC ACID 500 MG TABLET PO SCH (08:39)
[2018-05-01] MEDS: MEMANTINE 10 MG TABLET. PO SCH ×2 (08:39→17:25)
[2018-05-01] MEDS: RIVASTIGMINE 9.5MG PATCH. TD SCH (08:39)
[2018-05-01] MEDS: MAGNESIUM OXIDE 400 MG TABLET PO SCH ×2 (08:39→19:16)
[2018-05-01] MEDS: SERTRALINE 25 MG TABLET. PO SCH (08:39)
[2018-05-01] MEDS: MULTIVITAMIN with MINERAL TABLET. PO SCH (08:42)
[2018-05-01] MEDS: LINACLOTIDE 145 MCG CAPSULE. PO SCH (08:42)
[2018-05-01] MEDS: FLUTICASONE 50MCG/NASAL SPRAY 16GM BOTTLE. NS SCH ×2 (08:42→09:30)
[2018-05-01 16:04] VITALS: BP 171/99
--- NOTE | 2018-05-01 16:25 | RAD ---
CT head without intravenous contrast History: Trauma to the head, presumably against wall. Comparison: CT head March 21, 2018. Technique: Axial images are obtained of the head from the skull base through the vertex without IV contrast. Exposure: One or more of the following individualized dose reduction techniques were utilized for this examination: 1. Automated exposure control 2. Adjustment of the mA and/or kV according to patient size 3. Use of iterative reconstruction technique Findings: Bilateral deep brain stimulators by bilateral frontal approach are again seen; these create streak artifact The ventricles are appropriate in size, shape, and location for the patient's age. No obvious intracranial mass, mass-effect, midline shift, hemorrhage or obvious acute infarction is identified. Basilar cisterns are patent. Bone windows demonstrate no acute calvarial abnormality. The visualized paranasal sinuses appear clear. Impression: No acute intracranial process. Please note that CT can be relatively insensitive to acute ischemic infarction for up to 24 hours after symptom onset. Electronically signed by: Javier Mares MD (05/01/2018 4:22 PM) [id number]
[2018-05-01 16:47] VITALS: BP 156/95
[2018-05-01] MEDS: traZODone 50 MG TABLET. PO SCH ×2 (17:25→19:18)
[2018-05-01] MEDS: CARBIDOPA/LEVODOPA CR 50/200MG TABLET.SA PO SCH (19:17)
[2018-05-01] MEDS: DIVALPROEX SODIUM 250 MG TABLET.DR. PO SCH (19:17)
[2018-05-01] MEDS: MELATONIN 3 MG TABLET PO SCH (19:17)
[2018-05-01] MEDS: QUEtiapine 100 MG TABLET. PO SCH (19:18)
[2018-05-01] MEDS: PRAMIPEXOLE 0.25 MG TABLET. PO SCH (19:21)
--- NOTE | 2018-05-01 20:31 | PN ---
DATE: 04/30/2018 PSYCHIATRIC PROGRESS NOTE This late entry 04/30/2018 covers elements not covered in my initial note. SUBJECTIVE: I met with the patient at some length in his room on the evening of 04/30/2018. The patient slept 6-3/4 hours previous night. He has been somatic, complains of URI symptoms, started on Mucinex. He also complains of difficulty with ambulation, remains in a wheelchair, but has some overgrowth of his nails. Nursing staff have addressed this and given them a nail file to help as well. He has vague somatic symptoms. REVIEW OF SYSTEMS: No CV, , pulmonary, eye system symptoms other than above. MENTAL STATUS EXAM: Reasonably oriented. Speech coherent, rapid at times. Abstraction fair, computation impaired, language function intact, attention span short. Mood and affect remain somewhat anxious, labile. LABORATORY DATA: Reviewed. IMPRESSION: Unchanged from initial note. PLAN: No change from initial note. SAY PRUETT MD DR: MARCEL/nano JOB#: [id number] / [id number]
--- NOTE | 2018-05-01 22:41 | PDOC ---
Exam Note: Сергей Note: Please also refer to the separate dictated note~for this date of service dictated separately.~Patient seen individually. Discussed the patient with Nursing staff reviewed the chart.~Reviewed interim history and current functioning. Reviewed vital signs,~Labs/ Radiology~and current medications noted below. Continue current treatment with the changes noted in the dictated addendum note Assessment: Vital Signs: Vital Signs Date Time Temp Pulse Resp B/P (MAP) Pulse Ox O2 Delivery O2 Flow Rate FiO2 05/01/18 16:47 98.4 67 20 156/95 (115) 94 Room Air I&O Intake and Output 05/01/18 07:00 Intake Total 1440 ml Balance 1440 ml Intake Oral 1440 ml Current Medications: Meds: Current Medications Acetaminophen (Tylenol) 650 mg PRN Q6HRS PRN PO PAIN / TEMP Last administered on 04/30/18at 05:18; Start 04/13/18 at 00:30 Multi-Ingredient Ointment (Analgesic [place]) 1 juan PRN QID PRN TP MUSCLE PAIN; Start 04/13/18 at 00:30 Al Hydroxide/Mg Hydroxide (Mylanta Plus Xs) 15 ml PRN AFTMEALHC PRN PO DYSPEPSIA; Start 04/13/18 at 00:30 Magnesium Hydroxide (Milk Of Magnesia) 2,400 mg PRN QHS PRN PO CONSTIPATION; Start 04/13/18 at 00:30 Olanzapine (ZyPREXA ZYDIS) 5 mg PRN Q2HR PRN PO ANXIETY / AGITATION Last administered on 04/19/18at 17:05; Start 04/13/18 at 02:00 Citalopram Hydrobromide (CeleXA) 40 mg DAILY PO Last administered on at 07:59; Start 04/13/18 at 09:00; Stop 04/16/18 at 16:42; Status DC Diazepam (Valium) 2 mg PRN Q6HRS PRN PO ANXIETY Last administered on at 19:50; Start 04/13/18 at 02:00 Divalproex Sodium (Depakote) 1,500 mg HS PO Last administered on 05/01/18 19: 17; Start 04/13/18 at 21:00 Melatonin 3 mg HS PO Last administered on 05/01/18at 19:17; Start 04/13/18 at 21:00 Memantine (Namenda) 5 mg BIDWMEALS PO Last administered on 04/16/18at 08:00; Start 04/13/18 at 08:00; Stop 04/16/18 at 16:42; Status DC Quetiapine Fumarate (SEROquel) 25 mg QHS PO Last administered on 04/16/18at 19: 43; Start 04/13/18 at 21:00; Stop 04/17/18 at 16:51; Status DC Rivastigmine (Exelon) 1 patch DAILY TD Last administered on 04/16/18at 08:05; Start 04/13/18 at 09:00; Stop 04/16/18 at 16:42; Status DC Trazodone HCl (Desyrel) 25 mg DAILYWSUP PO Last administered on 05/01/18at 17: 25; Start 04/13/18 at 17:00 Trazodone HCl (Desyrel) 75 mg QHS PO Last administered on 04/27/18at 19:53; Start 04/13/18 at 21:00; Stop 04/28/18 at 18:15; Status DC Ascorbic Acid (Vitamin C) 500 mg DAILY PO Last administered on 05/01/18at 08:39 ; Start 04/13/18 at 09:00 Carbidopa/Levodopa (Sinemet 25/100) 0.5 tab Q2HR W/A PO Last administered on 05/01/18at 19:23; Start 04/13/18 at 06:00 Vitamin D (Vitamin D3) 50,000 unit WEEKLY PO Last administered on 04/27/18at 09 :21; Start 04/13/18 at 09:00 Diclofenac Sodium (Voltaren) 1 juan PRN TID PRN TP MUSCLE PAIN; Start 04/13/18 at 02:00 Ferrous Sulfate (Feosol) 650 mg DAILY06 PO Last administered on 05/01/18at 06: 07; Start 04/13/18 at 06:00 Ibuprofen (Motrin) 600 mg PRN BID PRN PO PAIN Last administered on 04/30/18at 01:54; Start 04/13/18 at 02:00 Linaclotide (Linzess) 145 mcg DAILY PO Last administered on 05/01/18at 08:42; Start 04/13/18 at 09:00 Nystatin (Nystop) 1 juan BID TP Last administered on 05/01/18 19:21; Start at 09:00 Aspirin (Children'S Aspirin) 81 mg DAILY PO Last administered on 05/01/18at 08: 38; Start 04/13/18 at 09:00 Carbidopa/Levodopa (Sinemet Cr) 1 tab.sa HS PO Last administered on 05/01/18 19:17; Start 04/13/18 at 21:00 Docusate Sodium (Colace) 100 mg BID PO Last administered on 05/01/18 19:17; Start 04/13/18 at 09:00 Doxycycline Hyclate (Vibra-Tab) 100 mg BID PO Last administered on 04/21/18 19 :36; Start 04/13/18 at 09:00; Stop 04/22/18 at 08:59; Status DC Fluticasone Propionate (Flonase) 2 spray DAILY NS Last administered on at 10:13; Start 04/13/18 at 09:00 Hydrocortisone (Cortaid) 1 juan PRN BID PRN TP RASH; Start 04/13/18 at 02:00 Lactobacillus Rhamnosus (Culturelle) 1 cap BID PO Last administered on 19:17; Start 04/13/18 at 09:00 Lactulose (Lactulose) 15 gm DAILYWBKFT PO Last administered on 04/30/18at 10:13 ; Start 04/13/18 at 08:00 Magnesium Oxide (Magnesium Oxide) 400 mg BID PO Last administered on at 19:16; Start 04/13/18 at 09:00 Metformin HCl (Glucophage Xr) 1,000 mg DAILYWBKFT PO Last administered on 05/01at 08:38; Start 04/13/18 at 08:00 Miconazole Nitrate (Monistat-Derm) 1 juan PRN BID PRN TP RASH; Start 04/13/18 at 02:00 Multivitamins/ Calcium (Thera-M Plus) 1 tab DAILY PO Last administered on 05/01at 08:42; Start 04/13/18 at 09:00 Pramipexole Dihydrochloride (miraPEX) 0.5 mg HS PO Last administered on 19:21; Start 04/13/18 at 21:00 Pravastatin Sodium (Pravachol) 40 mg DAILY PO Last administered on 05/01/18at 08:38; Start 04/13/18 at 09:00 Memantine (Namenda) 10 mg BIDWMEALS PO Last administered on 05/01/18at 17:25; Start 04/16/18 at 17:00 Sertraline HCl (Zoloft) 50 mg DAILY PO Last administered on 04/19/18at 08:15; Start 04/17/18 at 09:00; Stop 04/20/18 at 05:00; Status DC Rivastigmine (Exelon) 1 patch DAILY TD Last administered on 05/01/18at 08:39; Start 04/17/18 at 09:00 Sertraline HCl (Zoloft) 50 mg STK-MED ONCE .ROUTE ; Start 04/17/18 at 07:29; Stop 04/17/18 at 07:30; Status DC Quetiapine Fumarate (SEROquel) 50 mg QHS PO Last administered on 04/18/18at 19: 46; Start 04/17/18 at 21:00; Stop 04/19/18 at 08:01; Status DC Quetiapine Fumarate (SEROquel) 100 mg QHS PO Last administered on 04/25/18at 19: 20; Start 04/19/18 at 21:00; Stop 04/26/18 at 16:32; Status DC Sertraline HCl (Zoloft) 75 mg DAILY PO Last administered on 05/01/18at 08:39; Start 04/20/18 at 09:00 Trazodone HCl (Desyrel) 100 mg PRN QHS PRN PO INSOMNIA; Start 04/24/18 at 18:00 Quetiapine Fumarate (SEROquel) 150 mg QHS PO Last administered on 05/01/18at 19 :18; Start 04/26/18 at 21:00 Trazodone HCl (Desyrel) 150 mg QHS PO Last administered on 05/01/18at 19:18; Start 04/28/18 at 21:00 Guaifenesin (Mucinex Er) 600 mg BID PO ; Start 04/30/18 at 21:00; Stop at 21:00; Status DC Guaifenesin (Mucinex Er) 600 mg BID PO Last administered on 05/01/18at 19:16; Start 04/30/18 at 14:00 Active Scripts Active Reported Doxycycline Hyclate 100 Mg Tablet.dr 100 Mg PO BID Mag-Al Plus Xs Suspension (Mag Hydrox/Al Hydrox/Simeth) 30 Ml Oral.susp 15 Ml PO PRN AFTMEALHC PRN Lactulose 10 Gm/15 Ml Solution 15 Gm PO DAILYWBKFT EXELON 4.6mg/24hr (Rivastigmine) 1 Each Patch.td24 1 Patch TP DAILY Seroquel (Quetiapine Fumarate) 25 Mg Tablet 1 Tab PO QHS Zyprexa Zydis (Olanzapine) 5 Mg Tab.rapdis 5 Mg PO PRN Q2HR PRN Analgesic [place] (Methyl Salicylate/Menthol) 28 Gm Oint...g. 1 Juan TP QID PRN Namenda (Memantine Hcl) 10 Mg Tablet 0.5 Tab PO BIDWMEALS Melatonin 3 Mg Tablet 1 Tab PO QHS Culturelle (Lactobacillus Rhamnosus Gg) 1 Each Capsule 1 Each PO BID Celexa (Citalopram Hydrobromide) 40 Mg Tablet 40 Mg PO DAILY Glucophage Xr (Metformin Hcl) 500 Mg Tab.er.24h 2 Tab PO DAILYWBKFT Nystatin 15 Gm Powder 1 Juan TP BID Milk Of Magnesia (Magnesium Hydroxide) 2,400 Mg/10 Ml Oral.susp 2,400 Mg PO HS PRN Voltaren (Diclofenac Sodium) 100 Gm Gel..gram. 1 Juan TP PRN TID PRN FOR NECK PAIN Vitamin D3 (Cholecalciferol (Vitamin D3)) 50,000 Unit Capsule 50,000 Unit PO WEEKLY Tylenol (Acetaminophen) 325 Mg Tablet 2 Tab PO PRN Q6HRS PRN Pravastatin Sodium 40 Mg Tablet 40 Mg PO DAILY Carbidopa-Levo Er 50-200 Tab (Carbidopa/Levodopa) 1 Each Tablet.er 1 Each PO HS Sinemet 25-100 Mg Tablet (Carbidopa/Levodopa) 1 Each Tablet 0.5 Tab PO Q2HR W/A Diazepam 2 Mg Tablet 2 Mg PO PRN Q6HRS PRN Mirapex (Pramipexole Di-Hcl) 0.25 Mg Tablet 0.5 Mg PO HS Linzess (Linaclotide) 145 Mcg Capsule 145 Mcg PO DAILY Trazodone Hcl 50 Mg Tablet 75 Mg PO HS Divalproex Sodium 500 Mg Tablet.dr 1,500 Mg PO HS Hydrocortisone 453.6 Gm Cream..g. 1 Juan TP PRN BID PRN Ferrous Sulfate 325 Mg Tablet 650 Mg PO DAILY06 Magnesium Oxide 400 Mg Tablet 400 Mg PO BID Miconazole Nitrate 45 Gm Cream.appl 1 Juan TP PRN BID PRN Aspirin 81 Mg Tab.chew 81 Mg PO DAILY Ibuprofen 400 Mg Tablet 600 Mg PO PRN BID PRN Docusate Sodium 100 Mg Capsule 100 Mg PO BID Fluticasone Propionate Nasal [place] (Fluticasone Propionate) 16 Gm [place].susp 2 [place] NS DAILY Multivitamins (Multivitamin) 1 Each Tablet 1 Tab PO DAILY Trazodone Hcl 50 Mg Tablet 25 Mg PO DAILYWSUP Ascorbic Acid 500 Mg Tablet 500 Mg PO DAILY I have reviewed the current psychotropics carefully including drug interactions. Risk benefit ratio favors no change other than as noted in my dictated progress note. Diagnosis: Problems: (1) Anxiety disorder (2) Lewy body dementia with behavioral disturbance (3) Impulse control disorder (4) Personality disorder in adult SAY PRUETT MD May 01, 2018 22:41
[2018-05-02 06:01] VITALS: BP 149/76
[2018-05-02] MEDS: CARBIDOPA/LEVODOPA 25/100MG TABLET PO SCH ×9 (06:04→22:00)
[2018-05-02] MEDS: FERROUS SULFATE 325 MG TABLET. PO SCH (06:04)
[2018-05-02] MEDS: LACTULOSE 20 GM/30 ML SOLUTION. PO SCH (08:10)
[2018-05-02] MEDS: RIVASTIGMINE 9.5MG PATCH. TD SCH (08:10)
[2018-05-02] MEDS: metFORMIN XR 500 MG TAB.ER.24H PO SCH (08:11)
[2018-05-02] MEDS: MULTIVITAMIN with MINERAL TABLET. PO SCH (08:11)
[2018-05-02] MEDS: MAGNESIUM OXIDE 400 MG TABLET PO SCH ×2 (08:11→19:30)
[2018-05-02] MEDS: PRAVASTATIN 20 MG TABLET. PO SCH (08:11)
[2018-05-02] MEDS: DOCUSATE SODIUM 100 MG CAPSULE PO SCH ×2 (08:11→19:29)
[2018-05-02] MEDS: SERTRALINE 25 MG TABLET. PO SCH (08:11)
[2018-05-02] MEDS: ASPIRIN 81 MG TAB.CHEW PO SCH (08:11)
[2018-05-02] MEDS: LACTOBACILLUS RHAMNOSUS GG 1 CAPSULE. PO SCH ×2 (08:11→19:29)
[2018-05-02] MEDS: ASCORBIC ACID 500 MG TABLET PO SCH (08:11)
[2018-05-02] MEDS: MEMANTINE 10 MG TABLET. PO SCH ×2 (08:12→17:53)
[2018-05-02] MEDS: FLUTICASONE 50MCG/NASAL SPRAY 16GM BOTTLE. NS SCH (08:17)
[2018-05-02] MEDS: LINACLOTIDE 145 MCG CAPSULE. PO SCH (08:18)
[2018-05-02 08:19] LABS: ALBUMIN 3.2 g/dL (3.4-5.0); ALBUMIN/GLOBULIN RATIO 0.9 (1.0-1.7); CALCIUM 8.9 mg/dL (8.5-10.1); CREATININE 0.9 mg/dL (0.7-1.3); GFR 84.4; POTASSIUM 4.1 mmol/L (3.5-5.1); TOTAL BILIRUBIN 0.6 mg/dL (0.2-1.0); TOTAL PROTEIN 6.7 g/dL (6.4-8.2)
[2018-05-02 08:45] LABS: BASO % 1 % (0-3); EOS # 0.3 x10^3/uL (0.0-0.7); EOS % 4 % (0-3); HEMATOCRIT 39.5 % (39.0-53.0); HEMOGLOBIN 13.2 g/dL (13.0-17.5); LYMPH # 1.4 x10^3/uL (1.0-4.8); LYMPH % 17 % (24-48); MEAN CORPUSCULAR HEMOGLOBIN 31 pg (25-35); MEAN CORPUSCULAR HGB CONC 34 g/dL (31-37); MEAN CORPUSCULAR VOLUME 92 fL (79-100); MONO % 12 % (0-9); NEUT # 5.6 x10^3uL (1.8-7.7); NEUT % 67 % (31-73); PLATELET COUNT 172 x10^3/uL (140-400); RED BLOOD COUNT 4.29 x10^6/uL (4.30-5.70); RED CELL DISTRIBUTION WIDTH 13.9 % (11.5-14.5); WHITE BLOOD COUNT 8.4 x10^3/uL (4.0-11.0)
[2018-05-02] MEDS: NYSTATIN TOPICAL POWDER 15GM BOTTLE. TP SCH ×2 (09:09→19:31)
[2018-05-02 15:59] VITALS: BP 123/87
[2018-05-02] MEDS: traZODone 50 MG TABLET. PO SCH ×2 (17:53→19:30)
[2018-05-02] MEDS: MELATONIN 3 MG TABLET PO SCH (19:29)
[2018-05-02] MEDS: DIVALPROEX SODIUM 250 MG TABLET.DR. PO SCH (19:30)
[2018-05-02] MEDS: PRAMIPEXOLE 0.25 MG TABLET. PO SCH (19:31)
[2018-05-02] MEDS: QUEtiapine 100 MG TABLET. PO SCH (19:31)
[2018-05-02] MEDS: CARBIDOPA/LEVODOPA CR 50/200MG TABLET.SA PO SCH (19:33)
--- NOTE | 2018-05-02 22:57 | PDOC ---
Exam Note: Сергей Note: Please also refer to the separate dictated note~for this date of service dictated separately.~Patient seen individually. Discussed the patient with Nursing staff reviewed the chart.~Reviewed interim history and current functioning. Reviewed vital signs,~Labs/ Radiology~and current medications noted below. Continue current treatment with the changes noted in the dictated addendum note Assessment: Vital Signs: Vital Signs Date Time Temp Pulse Resp B/P (MAP) Pulse Ox O2 Delivery O2 Flow Rate FiO2 05/02/18 15:59 98.5 66 20 123/87 (99) 95 Room Air I&O Intake and Output 05/02/18 07:00 Intake Total 720 ml Balance 720 ml Intake Oral 720 ml # Bowel Movements 1 Labs: Laboratory Tests Test 05/02/18 07:55 White Blood Count 8.4 x10^3/uL (4.0-11.0) Red Blood Count 4.29 x10^6/uL (4.30-5.70) L Hemoglobin 13.2 g/dL (13.0-17.5) Hematocrit 39.5 % (39.0-53.0) Mean Corpuscular Volume 92 fL (79-100) Mean Corpuscular Hemoglobin 31 pg (25-35) Mean Corpuscular Hemoglobin Concent 34 g/dL (31-37) Red Cell Distribution Width 13.9 % (11.5-14.5) Platelet Count 172 x10^3/uL (140-400) Neutrophils (%) (Auto) 67 % (31-73) Lymphocytes (%) (Auto) 17 % (24-48) L Monocytes (%) (Auto) 12 % (0-9) H Eosinophils (%) (Auto) 4 % (0-3) H Basophils (%) (Auto) 1 % (0-3) Neutrophils # (Auto) 5.6 x10^3uL (1.8-7.7) Lymphocytes # (Auto) 1.4 x10^3/uL (1.0-4.8) Monocytes # (Auto) 1.0 x10^3/uL (0.0-1.1) Eosinophils # (Auto) 0.3 x10^3/uL (0.0-0.7) Basophils # (Auto) 0.0 x10^3/uL (0.0-0.2) Sodium Level 137 mmol/L (136-145) Potassium Level 4.1 mmol/L (3.5-5.1) Chloride Level 99 mmol/L (98-107) Carbon Dioxide Level 36 mmol/L (21-32) H Anion Gap 2 (6-14) L Blood Urea Nitrogen 20 mg/dL (8-26) Creatinine 0.9 mg/dL (0.7-1.3) Estimated GFR (Cockcroft-Gault) 84.4 BUN/Creatinine Ratio 22 (6-20) H Glucose Level 98 mg/dL (70-99) Calcium Level 8.9 mg/dL (8.5-10.1) Total Bilirubin 0.6 mg/dL (0.2-1.0) Aspartate Amino Transferase (AST) 15 U/L (15-37) Alanine Aminotransferase (ALT) 8 U/L (16-63) L Alkaline Phosphatase 57 U/L (46-116) Total Protein 6.7 g/dL (6.4-8.2) Albumin 3.2 g/dL (3.4-5.0) L Albumin/Globulin Ratio 0.9 (1.0-1.7) L Current Medications: Meds: Current Medications Acetaminophen (Tylenol) 650 mg PRN Q6HRS PRN PO PAIN / TEMP Last administered on 04/30/18at 05:18; Start 04/13/18 at 00:30 Multi-Ingredient Ointment (Analgesic [place]) 1 juan PRN QID PRN TP MUSCLE PAIN; Start 04/13/18 at 00:30 Al Hydroxide/Mg Hydroxide (Mylanta Plus Xs) 15 ml PRN AFTMEALHC PRN PO DYSPEPSIA; Start 04/13/18 at 00:30 Magnesium Hydroxide (Milk Of Magnesia) 2,400 mg PRN QHS PRN PO CONSTIPATION; Start 04/13/18 at 00:30 Olanzapine (ZyPREXA ZYDIS) 5 mg PRN Q2HR PRN PO ANXIETY / AGITATION Last administered on 04/19/18at 17:05; Start 04/13/18 at 02:00 Citalopram Hydrobromide (CeleXA) 40 mg DAILY PO Last administered on at 07:59; Start 04/13/18 at 09:00; Stop 04/16/18 at 16:42; Status DC Diazepam (Valium) 2 mg PRN Q6HRS PRN PO ANXIETY Last administered on at 19:50; Start 04/13/18 at 02:00 Divalproex Sodium (Depakote) 1,500 mg HS PO Last administered on 05/02/18at 19: 30; Start 04/13/18 at 21:00 Melatonin 3 mg HS PO Last administered on 05/02/18 19:29; Start 04/13/18 at 21:00 Memantine (Namenda) 5 mg BIDWMEALS PO Last administered on 04/16/18at 08:00; Start 04/13/18 at 08:00; Stop 04/16/18 at 16:42; Status DC Quetiapine Fumarate (SEROquel) 25 mg QHS PO Last administered on 04/16/18 19: 43; Start 04/13/18 at 21:00; Stop 04/17/18 at 16:51; Status DC Rivastigmine (Exelon) 1 patch DAILY TD Last administered on 04/16/18at 08:05; Start 04/13/18 at 09:00; Stop 04/16/18 at 16:42; Status DC Trazodone HCl (Desyrel) 25 mg DAILYWSUP PO Last administered on 05/02/18at 17: 53; Start 04/13/18 at 17:00 Trazodone HCl (Desyrel) 75 mg QHS PO Last administered on 04/27/18at 19:53; Start 04/13/18 at 21:00; Stop 04/28/18 at 18:15; Status DC Ascorbic Acid (Vitamin C) 500 mg DAILY PO Last administered on 05/02/18at 08:11 ; Start 04/13/18 at 09:00 Carbidopa/Levodopa (Sinemet 25/100) 0.5 tab Q2HR W/A PO Last administered on 05/02/18at 19:35; Start 04/13/18 at 06:00 Vitamin D (Vitamin D3) 50,000 unit WEEKLY PO Last administered on 04/27/18at 09 :21; Start 04/13/18 at 09:00 Diclofenac Sodium (Voltaren) 1 juan PRN TID PRN TP MUSCLE PAIN; Start 04/13/18 at 02:00 Ferrous Sulfate (Feosol) 650 mg DAILY06 PO Last administered on 05/02/18 06: 04; Start 04/13/18 at 06:00 Ibuprofen (Motrin) 600 mg PRN BID PRN PO PAIN Last administered on 04/30/18 01:54; Start 04/13/18 at 02:00 Linaclotide (Linzess) 145 mcg DAILY PO Last administered on 05/02/18 08:18; Start 04/13/18 at 09:00 Nystatin (Nystop) 1 juan BID TP Last administered on 05/02/18 19:31; Start at 09:00 Aspirin (Children'S Aspirin) 81 mg DAILY PO Last administered on 05/02/18 08: 11; Start 04/13/18 at 09:00 Carbidopa/Levodopa (Sinemet Cr) 1 tab.sa HS PO Last administered on 05/02/18 19:33; Start 04/13/18 at 21:00 Docusate Sodium (Colace) 100 mg BID PO Last administered on 05/02/18 19:29; Start 04/13/18 at 09:00 Doxycycline Hyclate (Vibra-Tab) 100 mg BID PO Last administered on 04/21/18 19 :36; Start 04/13/18 at 09:00; Stop 04/22/18 at 08:59; Status DC Fluticasone Propionate (Flonase) 2 spray DAILY NS Last administered on 08:17; Start 04/13/18 at 09:00 Hydrocortisone (Cortaid) 1 juan PRN BID PRN TP RASH; Start 04/13/18 at 02:00 Lactobacillus Rhamnosus (Culturelle) 1 cap BID PO Last administered on 19:29; Start 04/13/18 at 09:00 Lactulose (Lactulose) 15 gm DAILYWBKFT PO Last administered on 05/02/18 08:10 ; Start 04/13/18 at 08:00 Magnesium Oxide (Magnesium Oxide) 400 mg BID PO Last administered on 19:30; Start 04/13/18 at 09:00 Metformin HCl (Glucophage Xr) 1,000 mg DAILYWBKFT PO Last administered on 05/02at 08:11; Start 04/13/18 at 08:00 Miconazole Nitrate (Monistat-Derm) 1 juan PRN BID PRN TP RASH; Start 04/13/18 at 02:00 Multivitamins/ Calcium (Thera-M Plus) 1 tab DAILY PO Last administered on 05/02at 08:11; Start 04/13/18 at 09:00 Pramipexole Dihydrochloride (miraPEX) 0.5 mg HS PO Last administered on at 19:31; Start 04/13/18 at 21:00 Pravastatin Sodium (Pravachol) 40 mg DAILY PO Last administered on 05/02/18at 08:11; Start 04/13/18 at 09:00 Memantine (Namenda) 10 mg BIDWMEALS PO Last administered on 05/02/18at 17:53; Start 04/16/18 at 17:00 Sertraline HCl (Zoloft) 50 mg DAILY PO Last administered on 04/19/18at 08:15; Start 04/17/18 at 09:00; Stop 04/20/18 at 05:00; Status DC Rivastigmine (Exelon) 1 patch DAILY TD Last administered on 05/02/18at 08:10; Start 04/17/18 at 09:00 Sertraline HCl (Zoloft) 50 mg STK-MED ONCE .ROUTE ; Start 04/17/18 at 07:29; Stop 04/17/18 at 07:30; Status DC Quetiapine Fumarate (SEROquel) 50 mg QHS PO Last administered on 04/18/18at 19: 46; Start 04/17/18 at 21:00; Stop 04/19/18 at 08:01; Status DC Quetiapine Fumarate (SEROquel) 100 mg QHS PO Last administered on 04/25/18at 19: 20; Start 04/19/18 at 21:00; Stop 04/26/18 at 16:32; Status DC Sertraline HCl (Zoloft) 75 mg DAILY PO Last administered on 05/02/18at 08:11; Start 04/20/18 at 09:00 Trazodone HCl (Desyrel) 100 mg PRN QHS PRN PO INSOMNIA; Start 04/24/18 at 18:00 Quetiapine Fumarate (SEROquel) 150 mg QHS PO Last administered on 05/01/18 19 :18; Start 04/26/18 at 21:00; Stop 05/02/18 at 10:55; Status DC Trazodone HCl (Desyrel) 150 mg QHS PO Last administered on 05/02/18at 19:30; Start 04/28/18 at 21:00 Guaifenesin (Mucinex Er) 600 mg BID PO ; Start 04/30/18 at 21:00; Stop at 21:00; Status DC Guaifenesin (Mucinex Er) 600 mg BID PO Last administered on 05/02/18at 19:31; Start 04/30/18 at 14:00 Quetiapine Fumarate (SEROquel) 200 mg QHS PO Last administered on 05/02/18at 19 :31; Start 05/02/18 at 21:00 Throat Lozenges (Cepacol Sore Throat Lozenge) 1 [place] PRN Q2HR PRN PO SORE THROAT ; Start 05/02/18 at 21:15 Active Scripts Active Reported Doxycycline Hyclate 100 Mg Tablet.dr 100 Mg PO BID Mag-Al Plus Xs Suspension (Mag Hydrox/Al Hydrox/Simeth) 30 Ml Oral.susp 15 Ml PO PRN AFTMEALHC PRN Lactulose 10 Gm/15 Ml Solution 15 Gm PO DAILYWBKFT EXELON 4.6mg/24hr (Rivastigmine) 1 Each Patch.td24 1 Patch TP DAILY Seroquel (Quetiapine Fumarate) 25 Mg Tablet 1 Tab PO QHS Zyprexa Zydis (Olanzapine) 5 Mg Tab.rapdis 5 Mg PO PRN Q2HR PRN Analgesic [place] (Methyl Salicylate/Menthol) 28 Gm Oint...g. 1 Juan TP QID PRN Namenda (Memantine Hcl) 10 Mg Tablet 0.5 Tab PO BIDWMEALS Melatonin 3 Mg Tablet 1 Tab PO QHS Culturelle (Lactobacillus Rhamnosus Gg) 1 Each Capsule 1 Each PO BID Celexa (Citalopram Hydrobromide) 40 Mg Tablet 40 Mg PO DAILY Glucophage Xr (Metformin Hcl) 500 Mg Tab.er.24h 2 Tab PO DAILYWBKFT Nystatin 15 Gm Powder 1 Juan TP BID Milk Of Magnesia (Magnesium Hydroxide) 2,400 Mg/10 Ml Oral.susp 2,400 Mg PO HS PRN Voltaren (Diclofenac Sodium) 100 Gm Gel..gram. 1 Juan TP PRN TID PRN FOR NECK PAIN Vitamin D3 (Cholecalciferol (Vitamin D3)) 50,000 Unit Capsule 50,000 Unit PO WEEKLY Tylenol (Acetaminophen) 325 Mg Tablet 2 Tab PO PRN Q6HRS PRN Pravastatin Sodium 40 Mg Tablet 40 Mg PO DAILY Carbidopa-Levo Er 50-200 Tab (Carbidopa/Levodopa) 1 Each Tablet.er 1 Each PO HS Sinemet 25-100 Mg Tablet (Carbidopa/Levodopa) 1 Each Tablet 0.5 Tab PO Q2HR W/A Diazepam 2 Mg Tablet 2 Mg PO PRN Q6HRS PRN Mirapex (Pramipexole Di-Hcl) 0.25 Mg Tablet 0.5 Mg PO HS Linzess (Linaclotide) 145 Mcg Capsule 145 Mcg PO DAILY Trazodone Hcl 50 Mg Tablet 75 Mg PO HS Divalproex Sodium 500 Mg Tablet.dr 1,500 Mg PO HS Hydrocortisone 453.6 Gm Cream..g. 1 Juan TP PRN BID PRN Ferrous Sulfate 325 Mg Tablet 650 Mg PO DAILY06 Magnesium Oxide 400 Mg Tablet 400 Mg PO BID Miconazole Nitrate 45 Gm Cream.appl 1 Juan TP PRN BID PRN Aspirin 81 Mg Tab.chew 81 Mg PO DAILY Ibuprofen 400 Mg Tablet 600 Mg PO PRN BID PRN Docusate Sodium 100 Mg Capsule 100 Mg PO BID Fluticasone Propionate Nasal [place] (Fluticasone Propionate) 16 Gm [place].susp 2 [place] NS DAILY Multivitamins (Multivitamin) 1 Each Tablet 1 Tab PO DAILY Trazodone Hcl 50 Mg Tablet 25 Mg PO DAILYWSUP Ascorbic Acid 500 Mg Tablet 500 Mg PO DAILY I have reviewed the current psychotropics carefully including drug interactions. Risk benefit ratio favors no change other than as noted in my dictated progress note. Diagnosis: Problems: (1) Anxiety disorder (2) Lewy body dementia with behavioral disturbance (3) Impulse control disorder (4) Personality disorder in adult SAY PRUETT MD May 02, 2018 22:57
[2018-05-03] MEDS: BENZOCAINE/MENTHOL LOZNGE 18'S BOX. PO PRN ×7 (00:26→22:29)
[2018-05-03] MEDS: traZODone 100 MG TABLET. PO PRN ×2 (02:22→22:29)
[2018-05-03] MEDS: diazePAM 2 MG TABLET PO PRN (02:22)
[2018-05-03 05:53] VITALS: BP 139/90
[2018-05-03] MEDS: CARBIDOPA/LEVODOPA 25/100MG TABLET PO SCH ×9 (06:19→21:52)
[2018-05-03] MEDS: FERROUS SULFATE 325 MG TABLET. PO SCH (06:19)
[2018-05-03] MEDS: LACTULOSE 20 GM/30 ML SOLUTION. PO SCH (07:56)
[2018-05-03] MEDS: RIVASTIGMINE 9.5MG PATCH. TD SCH (07:56)
[2018-05-03] MEDS: MAGNESIUM OXIDE 400 MG TABLET PO SCH ×2 (07:56→19:10)
[2018-05-03] MEDS: ASCORBIC ACID 500 MG TABLET PO SCH (07:57)
[2018-05-03] MEDS: SERTRALINE 25 MG TABLET. PO SCH (07:57)
[2018-05-03] MEDS: MULTIVITAMIN with MINERAL TABLET. PO SCH (07:57)
[2018-05-03] MEDS: DOCUSATE SODIUM 100 MG CAPSULE PO SCH ×2 (07:57→19:09)
[2018-05-03] MEDS: ASPIRIN 81 MG TAB.CHEW PO SCH (07:57)
[2018-05-03] MEDS: LACTOBACILLUS RHAMNOSUS GG 1 CAPSULE. PO SCH ×2 (07:57→19:09)
[2018-05-03] MEDS: metFORMIN XR 500 MG TAB.ER.24H PO SCH (07:57)
[2018-05-03] MEDS: PRAVASTATIN 20 MG TABLET. PO SCH (07:58)
[2018-05-03] MEDS: MEMANTINE 10 MG TABLET. PO SCH ×2 (07:58→17:45)
[2018-05-03] MEDS: FLUTICASONE 50MCG/NASAL SPRAY 16GM BOTTLE. NS SCH (07:59)
[2018-05-03] MEDS: LINACLOTIDE 145 MCG CAPSULE. PO SCH (07:59)
--- NOTE | 2018-05-03 07:59 | RAD ---
EXAM: AP View of the chest DATE: 05/03/2018 6:19 AM INDICATION: INCREASINGLY WORSE PRODUCTIVE COUGH COMPARISON: No Prior FINDINGS: The heart is not enlarged. Aorta is tortuous. A generator pack obscures a portion of the right chest with lead extending toward the neck. Mediastinal and hilar contours are stable. No focal parenchymal airspace opacity. No pleural effusion or pneumothorax. Advanced left glenohumeral joint osteoarthritis. IMPRESSION: No evidence for acute cardiopulmonary process. Electronically signed by: Jimmie Fischer MD (05/03/2018 7:55 AM) [facility]
[2018-05-03] MEDS: NYSTATIN TOPICAL POWDER 15GM BOTTLE. TP SCH ×2 (08:01→19:11)
[2018-05-03 15:56] VITALS: BP 124/81
[2018-05-03] MEDS: traZODone 50 MG TABLET. PO SCH ×2 (17:45→19:10)
[2018-05-03] MEDS: CARBIDOPA/LEVODOPA CR 50/200MG TABLET.SA PO SCH (19:09)
[2018-05-03] MEDS: MELATONIN 3 MG TABLET PO SCH (19:09)
[2018-05-03] MEDS: DIVALPROEX SODIUM 250 MG TABLET.DR. PO SCH (19:10)
[2018-05-03] MEDS: PRAMIPEXOLE 0.25 MG TABLET. PO SCH (19:10)
[2018-05-03] MEDS: QUEtiapine 100 MG TABLET. PO SCH (19:11)
--- NOTE | 2018-05-03 20:02 | PN ---
DATE: 05/02/2018 PSYCHIATRIC PROGRESS NOTE This late entry 05/02/2018, covers elements not covered in my initial note. SUBJECTIVE: I met with the patient in the evening and staffed at a treatment team meeting with the entire team in the morning with the patient's , Belen, attending. The patient slept 2-3/4 hours previous night. Day before, he had dropped himself on the floor, doing a little better on 05/02/2018, at least in the morning. By the evening when I met with him individually, he was extremely angry, labile, accusatory of nursing staff, trying to stand up from his wheelchair with a significant fall risk, dropped water all over his wheelchair, then angry at nursing staff for picking him up to clean the water to dry him up. REVIEW OF SYSTEMS: Ambulation impaired, in wheelchair. No CV, , pulmonary, eye, ENT system symptoms on review. He has vague somatic symptoms. MENTAL STATUS EXAM: Reasonably oriented. Speech is coherent, rapid at times. Abstraction fair, computation is impaired, language function intact, attention span short. Mood and affect remains labile. LABORATORY DATA: Reviewed. IMPRESSION: Bipolar 1 disorder, mixed; anxiety disorder, unspecified; impulse control disorder, unspecified; possible early Lewy body dementia with delusions. PLAN: I had a very lengthy discussion with the patient's , Belen, about treatment options. The patient is on reasonable dosages of psychotropics, the above behaviors persist. They are not entirely generated from his primary psychiatric disorder, but additionally from the personality factors inflicting him. He is not being accepted at any long term. Belen would prefer him to be somewhat sedated by whatever means we can make it happen so that he is less impulsive, not a danger to himself, can be transitioned to the long term and then the psychotropics can be reduced. Continue current psychotropics include bedtime Seroquel from 150 at bedtime, to 200 at bedtime. Rest unchanged. Dr. Valle will assume care of the patient for the next 10 days during my absence. MAN Rosa PRUETT MD DR: MARCEL/nano JOB#: [id number] / [id number]
--- NOTE | 2018-05-03 20:09 | PN ---
DATE: 05/01/2018 PSYCHIATRIC PROGRESS NOTE This is a late entry of 05/01/2018, covers elements not covered in my initial note. SUBJECTIVE: I met with the patient in the evening. The patient slept 5 hours previous night. The patient has had yet another very difficult day. Per nursing staff, he threw himself on the floor, received a significant bump on his head. CT head is noncontributory, and he is back on one-on-one status. He denies that he tried to hurt himself when I questioned him at some length. The staff is clear on the above. REVIEW OF SYSTEMS: Ambulation impaired, in wheelchair, which is rather large, needs Evelina lift to assist with picking him up. No CV, , GI, or pulmonary, eye, ENT system symptoms on review. Reliability varies. MENTAL STATUS EXAM: The patient is reasonably oriented. Speech is coherent, somewhat pressured at times. Abstraction fair, computation impaired, language function intact, attention span short. Mood and affect are somewhat anxious, labile. LABORATORY DATA: Reviewed. He denies active suicidal ideation as I questioned him closely and persistently about this. IMPRESSION: Bipolar 1 disorder, mixed; early Lewy body dementia; impulse control disorder; anxiety disorder, unspecified. PLAN: Continue on one-on-one status. Maintain psychotropics as mentioned in my initial note. MAN Rosa PRUETT MD DR: MARCEL/nano JOB#: [id number] / [id number]
[2018-05-03] MEDS: IBUPROFEN 600 MG TABLET. PO PRN (20:45)
[2018-05-03] MEDS: BENZONATATE 100 MG CAPSULE. PO SCH (23:36)
--- NOTE | 2018-05-04 00:38 | PN ---
DATE: 05/03/2018 SUBJECTIVE: The patient was seen today, met with the staff, chart reviewed and also covering for Dr. Martins. The patient is still having problems. The patient was admitted briefly to the medical floor. The patient recently tried to strangle himself with a phone cord approximately a week ago. The patient continues to have a lot of anger, rage and also is very demanding, unrealistic expectation: OBSERVATION: VITAL SIGNS: Temperature 97.8, blood pressure 130/90, pulse 64, respirations 20, O2 sat 92%. Slept about 4 hours last night. The patient currently not having any major medical issues. The patient's appetite is normal. MEDICATIONS: Reviewed. Currently on Seroquel 200 mg at night, trazodone 150 mg at night, Zoloft 75 mg daily, Exelon patch daily, Namenda 10 mg twice a day. The patient is also on carbidopa/levodopa at night, melatonin 3 mg at night, Depakote 1500 mg at night. ASSESSMENT: Bipolar disorder type 1 with psychotic features, also dementia, most likely Lewy body. PLAN: Continue with the current treatment. The patient is not having any major side effects from the medications. MORRIS VALDEZ MD DR: CHRIST/nano JOB#: [id number] / [id number]
[2018-05-04 05:27] VITALS: BP 177/92
[2018-05-04] MEDS: FERROUS SULFATE 325 MG TABLET. PO SCH (05:45)
[2018-05-04] MEDS: CARBIDOPA/LEVODOPA 25/100MG TABLET PO SCH ×8 (05:45→22:00)
[2018-05-04] MEDS: MULTIVITAMIN with MINERAL TABLET. PO SCH (07:36)
[2018-05-04] MEDS: RIVASTIGMINE 9.5MG PATCH. TD SCH (07:36)
[2018-05-04] MEDS: ASCORBIC ACID 500 MG TABLET PO SCH (07:36)
[2018-05-04] MEDS: ASPIRIN 81 MG TAB.CHEW PO SCH (07:36)
[2018-05-04] MEDS: SERTRALINE 25 MG TABLET. PO SCH (07:36)
[2018-05-04] MEDS: BENZONATATE 100 MG CAPSULE. PO SCH ×3 (07:37→19:16)
[2018-05-04] MEDS: metFORMIN XR 500 MG TAB.ER.24H PO SCH (07:37)
[2018-05-04] MEDS: MAGNESIUM OXIDE 400 MG TABLET PO SCH ×2 (07:37→19:16)
[2018-05-04] MEDS: DOCUSATE SODIUM 100 MG CAPSULE PO SCH ×2 (07:38→19:15)
[2018-05-04] MEDS: LACTULOSE 20 GM/30 ML SOLUTION. PO SCH (07:38)
[2018-05-04] MEDS: LACTOBACILLUS RHAMNOSUS GG 1 CAPSULE. PO SCH ×2 (07:38→19:15)
[2018-05-04] MEDS: PRAVASTATIN 20 MG TABLET. PO SCH (07:38)
[2018-05-04] MEDS: MEMANTINE 10 MG TABLET. PO SCH ×2 (07:38→17:51)
[2018-05-04] MEDS: NYSTATIN TOPICAL POWDER 15GM BOTTLE. TP SCH ×2 (07:39→19:17)
[2018-05-04] MEDS: FLUTICASONE 50MCG/NASAL SPRAY 16GM BOTTLE. NS SCH (07:39)
[2018-05-04] MEDS: CHOLECALCIFEROL (VITAMIN D3) 50,000 UNIT CAPSULE PO SCH (07:41)
[2018-05-04] MEDS: LINACLOTIDE 145 MCG CAPSULE. PO SCH (07:50)
[2018-05-04 15:30] VITALS: BP 156/98
[2018-05-04] MEDS: traZODone 50 MG TABLET. PO SCH ×2 (17:51→19:15)
[2018-05-04] MEDS: DIVALPROEX SODIUM 250 MG TABLET.DR. PO SCH (19:15)
[2018-05-04] MEDS: MELATONIN 3 MG TABLET PO SCH (19:15)
[2018-05-04] MEDS: PRAMIPEXOLE 0.25 MG TABLET. PO SCH (19:16)
[2018-05-04] MEDS: CARBIDOPA/LEVODOPA CR 50/200MG TABLET.SA PO SCH (19:16)
[2018-05-04] MEDS: QUEtiapine 100 MG TABLET. PO SCH (19:16)
[2018-05-04] MEDS: BENZOCAINE/MENTHOL LOZNGE 18'S BOX. PO PRN ×2 (19:52→22:11)
[2018-05-04] MEDS ORDERED: BENZONATATE 100 MG CAPSULE. PO SCH (23:00)
[2018-05-05] MEDS: diazePAM 2 MG TABLET PO PRN (00:34)
[2018-05-05] MEDS: traZODone 100 MG TABLET. PO PRN (00:34)
[2018-05-05 00:48] VITALS: BP 132/85
[2018-05-05] MEDS ORDERED: BENZ1LOZ48 MM (02:37)
[2018-05-05] MEDS ORDERED: BENZ-8 PO (02:38)
[2018-05-05] MEDS ORDERED: IPRA0.2S5 NEB (02:40)
[2018-05-05] MEDS ORDERED: QUET200T4 PO (02:40)
[2018-05-05] MEDS ORDERED: GUAI600T79 PO (02:41)
[2018-05-05] MEDS ORDERED: SERT25TA PO (02:41)
[2018-05-05] MEDS ORDERED: TRAZ150T49 PO (02:42)
[2018-05-05] MEDS ORDERED: TRAZ-86 PO (02:42)
[2018-05-05] MEDS ORDERED: RIVA1PAT23 TD (02:43)
[2018-05-05] MEDS ORDERED: DIPHTH,PERTUSS(ACELL),TET TOX 0.5 ML DISP.SYRIN. VAX IM ONE (02:57)
[2018-05-05] MEDS ORDERED: IPRATROPIUM BROMIDE 0.5 MG/2.5 ML NEBU. NEB SCH (08:00)
--- NOTE | 2018-05-05 16:41 | PN ---
DATE: 05/04/2018 SUBJECTIVE: The patient was seen today, met with the staff, chart reviewed. The patient was recently on the medical floor following a suicidal attempt on the unit, trying to strangle himself with a phone cord. The patient continues to have a lot of anger, rage, demanding, unrealistic expectation. OBSERVATION: VITAL SIGNS: Temperature 96.7, blood pressure 177/92, pulse 65, respirations 18, O2 sat 92%, slept only about 3 hours last night. The patient mainly is complaining of cough, bronchitis, chest pain, coughing large amount of sputum. The patient was seen by the primary care doctor. MEDICATIONS: The patient's current medications include Seroquel 200 mg at night, trazodone 150 mg at night, Zoloft 75 mg at night, Exelon patch daily, Namenda 10 mg twice a day. The patient is also on carbidopa/levodopa at night for his Parkinson's. The patient is also getting Depakote 500 mg at night and melatonin 3 mg at night. LABORATORY DATA: The patient's lab reviewed. The patient's Depakote level was 60 on 04/13/2018 and 51 on 04/23/2018. ASSESSMENT: Bipolar disorder type 1 with psychotic features, dementia, most likely Lewy body disease. PLAN: To continue with the treatment. The patient continues to have major behavior problems. MORRIS VALDEZ MD DR: CHRIST/nano JOB#: [id number] / [id number]
[2018-05-06] MEDS ORDERED: ALBU2.5V5 (04:17)
--- NOTE | 2018-05-06 11:34 | PN ---
DATE: 05/04/2018 SUBJECTIVE: The patient was seen today, met with the staff, chart reviewed. The patient was recently on the medical floor following a suicidal attempt on the unit, trying to strangle himself with a phone cord. The patient continues to have a lot of anger, rage, demanding, unrealistic expectation. OBSERVATION: VITAL SIGNS: Temperature 96.7, blood pressure 177/92, pulse 65, respirations 18, O2 sat 92%, slept only about 3 hours last night. The patient mainly is complaining of cough, bronchitis, chest pain, coughing large amount of sputum. The patient was seen by the primary care doctor. MEDICATIONS: The patient's current medications include Seroquel 200 mg at night, trazodone 150 mg at night, Zoloft 75 mg at night, Exelon patch daily, Namenda 10 mg twice a day. The patient is also on carbidopa/levodopa at night for his Parkinson's. The patient is also getting Depakote 1500 mg at night and melatonin 3 mg at night. LABORATORY DATA: The patient's lab reviewed. The patient's Depakote level was 60 on 04/13/2018 and 51 on 04/23/2018. ASSESSMENT: Bipolar disorder type 1 with psychotic features, dementia, most likely Lewy body disease. PLAN: To continue with the treatment. The patient continues to have major behavior problems. MORRIS VALDEZ MD DR: CHRIST/nano JOB#: [id number] / [id number]
--- NOTE | 2018-05-06 18:51 | DS ---
DATE OF DISCHARGE: 05/05/2018 FINAL DIAGNOSES: AXIS I: 1. Bipolar disorder mixed with psychotic features. 2. Major neurocognitive disorder, most likely Lewy body disease with delusions and behavioral disturbances through impulse control disorder, unspecified. AXIS II: None. AXIS III: Parkinson's disease, currently on deep brain stimulator, obstructive sleep apnea, obesity, hyperlipidemia and recent episode of bradycardia and hypoxia with O2 saturation 80%. REASON FOR ADMISSION: This 67-year-old male was readmitted to [facility] from [address] [place] [address] after he was medically stabilized for cellulitis and was taken care of by Dr. Rahman. The patient was [facility] the [facility] with a diagnosis of bipolar disorder, probable Lewy body disease, impulse control problems and also behavior problems, frequent suicidal statements, having multiple physical problems, difficulty breathing, constantly having medical issues and also fell according to the staff. He has been very demanding constantly seeking attention. HISTORY OF PRESENT ILLNESS: The patient also tried to strangle himself on the unit. Apparently took a cord and kept it in his pocket, but the nurse found him. The patient did not incur any harm or any damage. The patient was placed on 1:1. HOSPITAL COURSE: The patient's behavior continued to worsen. He had multiple physical complaints. He had difficulty breathing at times. The patient was also coughing constantly, also having bronchitis, spitting sputum in the cough and concerned that he is not getting any help. The patient also angry with the staff. Staff also noticed that apparently fell to the floor, apparently trying to hit his head against the wall. No major injuries and the patient was placed on 1:1. The patient's health declined. The patient has difficulty breathing and his O2 sat was 80%. The patient also had a bradycardia and so he was referred to Dr. Rahman and they decided to transfer him to the medical floor. PLAN: The patient was transferred to the medical floor because of hypoxia and bradycardia. MORRIS VALDEZ MD DR: CHRIST/nano JOB#: [id number] / [id number]
== END 2018-05-05 02:30 | disposition short-term general hospital (02) | DRG 56 ==
LOC: GEROPSY 00:15
PROVIDERS: ADMIT Psychiatry & Neurology Psychiatry; ATTEND Psychiatry & Neurology Psychiatry
DX: G20 Parkinson's disease (principal); E43 Unspecified severe protein-calorie malnutrition; F31.64 Bipolar disorder, current episode mixed, severe, with psychotic features; F02.81 Dementia in other diseases classified elsewhere, unspecified severity, with behavioral disturbance; F01.51 Vascular dementia, unspecified severity, with behavioral disturbance; Z68.37 Body mass index [BMI] 37.0-37.9, adult; E66.9 Obesity, unspecified; E78.5 Hyperlipidemia, unspecified; F41.9 Anxiety disorder, unspecified; W18.39XA Other fall on same level, initial encounter; Z66 Do not resuscitate; F60.9 Personality disorder, unspecified; F63.9 Impulse disorder, unspecified; G47.33 Obstructive sleep apnea (adult) (pediatric); W22.01XA Walked into wall, initial encounter; Y93.89 Activity, other specified; Y92.238 Other place in hospital as the place of occurrence of the external cause; Y99.8 Other external cause status; Z79.899 Other long term (current) drug therapy; Z91.81 History of falling
CPT/HCPCS: 36415; 70450; 71045; 71046; 80053; 80164; 85007; 85025; 97110; 97116; 97530

== ENCOUNTER 2018-05-05 02:56 | Inpatient (IN) | payer MEDICARE ==
[~2018-05-05] VITALS: Ht 190.5 cm; Wt 133.4 kg
[~2018-05-05 02:56] MED LIST changes: +BENZ-8 PO; +BENZ1LOZ48 MM; +GUAI600T79 PO; +IPRA0.2S5 NEB; +QUET200T4 PO; +RIVA1PAT23 TD; +SERT25TA PO; +TRAZ-86 PO; +TRAZ150T49 PO
[2018-05-05] MEDS ORDERED: NEOMY/BACITR/POLYMYXIN OINT PACKET. TP ONE ×2 (03:05→03:10)
[2018-05-05] MEDS ORDERED: DIPHTH,PERTUSS(ACELL),TET TOX 0.5 ML DISP.SYRIN. VAX IM ONE (03:15)
[2018-05-05 03:30] LABS: BASO % 1 % (0-3); EOS # 0.3 x10^3/uL (0.0-0.7); EOS % 4 % (0-3); HEMATOCRIT 38.3 % (39.0-53.0); HEMOGLOBIN 12.6 g/dL (13.0-17.5); LYMPH # 1.3 x10^3/uL (1.0-4.8); LYMPH % 16 % (24-48); MEAN CORPUSCULAR HEMOGLOBIN 30 pg (25-35); MEAN CORPUSCULAR HGB CONC 33 g/dL (31-37); MEAN CORPUSCULAR VOLUME 92 fL (79-100); MONO # 1.2 x10^3/uL (0.0-1.1); MONO % 14 % (0-9); NEUT # 5.5 x10^3uL (1.8-7.7); NEUT % 66 % (31-73); PLATELET COUNT 141 x10^3/uL (140-400); RED BLOOD COUNT 4.17 x10^6/uL (4.30-5.70); RED CELL DISTRIBUTION WIDTH 13.9 % (11.5-14.5); WHITE BLOOD COUNT 8.3 x10^3/uL (4.0-11.0)
[2018-05-05 03:35] LABS: ALBUMIN 3.1 g/dL (3.4-5.0); CALCIUM 8.7 mg/dL (8.5-10.1); CREATININE 0.8 mg/dL (0.7-1.3); DIRECT BILIRUBIN 0.2 mg/dL (0.0-0.2); GFR 96.7; POTASSIUM 4.5 mmol/L (3.5-5.1); TOTAL BILIRUBIN 0.5 mg/dL (0.2-1.0); TOTAL PROTEIN 6.2 g/dL (6.4-8.2)
--- NOTE | 2018-05-05 03:53 | ED.ADGEN ---
Past History Past Medical History: Dementia, Depression Past Surgical History: Other Adult General Chief Complaint Chief Complaint ." I am not talking about it... don't tell me what to do..." [facility] HPI Patient is a 67 year old male from [facility] who presents with hx of head injury after banging his head against the the floor repeatedly during a emotional out burst. Pt has a hematoma with macerated 3 cm laceration to Lt eye brow. Laceration has star shape pattern. Reportedly pt has a hx of prior dx of Bipolar, probable Lewy body dementia, Delusions, Borderline personality disorder and , poor impulse control. Pt. has hx of aggressive behavior and extremely demanding. Pt. has hx of suicidal threats. Pt. frequently overbearing demeanor with staff. Pt. very angry and has unrealistic expectations. Pt. has an almost adolescent defiance like behavior. Pt. has hx of Parkinson , sleep apnea, obesity, hyper lipidemia. Reportedly pt. had no reported loss of consciousness with current head injury. Patient does move all extremities on request. Pupils are equal and responsive to light. Extraocular muscles appear to be intact. Laceration to eyebrow is to base of bone with surrounding hematoma. Patient also has an abrasion to right knee and right elbow from his flailing his arms and legs on the floor. It is unknown data patient's last tetanus. Review of Systems Review of Systems Constitutional: Denies fever or chills [] Eyes: Denies change in visual acuity, redness, or eye pain [] HENT: Denies nasal congestion or sore throat []complaints of laceration above left eye Respiratory: Denies cough or shortness of breath [] Cardiovascular: No additional information not addressed in HPI [] GI: Denies abdominal pain, nausea, vomiting, bloody stools or diarrhea [] : Denies dysuria or hematuria [] Musculoskeletal: Denies back pain or joint pain [complaintsof abrasion to right elbow and right knee Integument: Denies rash or skin lesions [] Neurologic: Denies headache, focal weakness or sensory changes [] Endocrine: Denies polyuria or polydipsia [] All other systems were reviewed and found to be within normal limits, except as documented in this note. Family History Family History Not currently available Current Medications Current Medications Current Medications Medications (Trade) Dose Ordered Sig/Lucero Start Time Stop Time Status Last Admin Dose Admin Diphtheria/ Tetanus/Acell Pertussis (Boostrix) 0.5 ml ONCE ONCE 05/05/18 03:15 05/05/18 04:29 DC 05/05/18 03:04 0.5 ML Neomycin/ Polymyxin/ Bacitracin (Triple Antibiotic Ointment) 1 pkt STK-MED ONCE 05/05/18 03:10 05/05/18 03:11 DC Allergies Allergies Allergies Coded Allergies Type Severity Reaction Last Updated Verified I S O L A T I O N *CONTACT* Allergy Unknown 05/05/18 Yes NKMA Allergy Unknown 05/05/18 Yes Physical Exam Physical Exam Constitutional: in acute emotional distress, non-toxic appearance. [] HENT: Normocephalic, head laceration as per history of present illness, bilateral external ears normal, oropharynx moist, no oral exudates, nose normal. [] Eyes: PERRLA, EOMI, conjunctiva normal, no discharge. [] Neck: Normal range of motion, no tenderness, supple, no stridor. [] Does have some difficulty handling sputum and swallowing ice chips. Neck surgery scar. Cardiovascular:Heart rate regular rhythm, no murmur [] Lungs & Thorax: Bilateral breath sounds few scattered wheezes at apex on Auscultation [] Abdomen: Bowel sounds normal, soft, no tenderness, no masses, no pulsatile masses. []Obese Skin: Warm, dry, no erythema, no rash. [] Scattered abrasions and contusions. Different stages of healing. Venous stasis in legs. Back: No tenderness, no CVA tenderness. [] Extremities: No tenderness, no cyanosis, no clubbing, ROM intact, bilateral ankle edema. [] Old surgery scar right ankle Neurologic: Alert and oriented X 3, moves all extremities on request, some decrease in plantar sensation, no gross focal deficits from his baseline. Psychologic: Affect angry,, judgement very poor insight to his impulsive and disruptive behavior, Current Patient Data Vital Signs Vital Signs Date Time Temp Pulse Resp B/P (MAP) Pulse Ox O2 Delivery O2 Flow Rate FiO2 05/05/18 04:30 44 18 152/57 (88) 93 Room Air 05/05/18 03:00 98.1 Lab Results Laboratory Tests Test 05/05/18 03:00 White Blood Count 8.3 x10^3/uL (4.0-11.0) Red Blood Count 4.17 x10^6/uL (4.30-5.70) L Hemoglobin 12.6 g/dL (13.0-17.5) L Hematocrit 38.3 % (39.0-53.0) L Mean Corpuscular Volume 92 fL (79-100) Mean Corpuscular Hemoglobin 30 pg (25-35) Mean Corpuscular Hemoglobin Concent 33 g/dL (31-37) Red Cell Distribution Width 13.9 % (11.5-14.5) Platelet Count 141 x10^3/uL (140-400) Neutrophils (%) (Auto) 66 % (31-73) Lymphocytes (%) (Auto) 16 % (24-48) L Monocytes (%) (Auto) 14 % (0-9) H Eosinophils (%) (Auto) 4 % (0-3) H Basophils (%) (Auto) 1 % (0-3) Neutrophils # (Auto) 5.5 x10^3uL (1.8-7.7) Lymphocytes # (Auto) 1.3 x10^3/uL (1.0-4.8) Monocytes # (Auto) 1.2 x10^3/uL (0.0-1.1) H Eosinophils # (Auto) 0.3 x10^3/uL (0.0-0.7) Basophils # (Auto) 0.0 x10^3/uL (0.0-0.2) Prothrombin Time 11.3 SEC (9.4-11.4) Prothrombin Time INR 1.1 (0.9-1.1) PTT 29 SEC (23-33) Sodium Level 137 mmol/L (136-145) Potassium Level 4.5 mmol/L (3.5-5.1) Chloride Level 96 mmol/L (98-107) L Carbon Dioxide Level 36 mmol/L (21-32) H Anion Gap 5 (6-14) L Blood Urea Nitrogen 13 mg/dL (8-26) Creatinine 0.8 mg/dL (0.7-1.3) Estimated GFR (Cockcroft-Gault) 96.7 Glucose Level 122 mg/dL (70-99) H Calcium Level 8.7 mg/dL (8.5-10.1) Total Bilirubin 0.5 mg/dL (0.2-1.0) Direct Bilirubin 0.2 mg/dL (0.0-0.2) Aspartate Amino Transferase (AST) 19 U/L (15-37) Alanine Aminotransferase (ALT) 9 U/L (16-63) L Alkaline Phosphatase 61 U/L (46-116) Total Protein 6.2 g/dL (6.4-8.2) L Albumin 3.1 g/dL (3.4-5.0) L EKG EKG [] Radiology/Procedures Radiology/Procedures My interpretation of CT of head and neck shows no obvious intracranial shift, mass, edema, bleed, or fracture. My interpretation is somewhat limited because of brain stimulator scatter. There is a hematoma above left eyebrow. Cervical does have degenerative joint changes. But no obvious displaced fracture .[] Reviewed findings when formal report available 1 Course & Med Decision Making Course & Med Decision Making Pertinent Labs and Imaging studies reviewed. (See chart for details) Suture note- left eyebrow laceration cleaned with Betadine. Injected edges of laceration with lidocaine and epinephrine. Re-cleaned laceration with peroxide and then saline. Closed laceration with 6 simple 4-0 Vicryl. Polysporin applied. Patient to keep area clean and dry. Apply antibiotic ointment 4 times a day. Sutures will dissolve. Cleaned abrasions on right knee and right elbow with Betadine. Neuro check hourly x 4 hrs. then every 4 hrs if remains stable. One on One observation for now because of his self injury behavior. Will re- admit to [facility] for now. [] Final Impression Final Impression 1. Head injury 2. Left eyebrow contusion, hematoma and 3 cm laceration- (self induced) 3. Self injury -secondary to poor impulse control and anger outburst 4. History of borderline personality behavior 5. History of possible Lewy body dementia 6. History of Parkinson disease with vagal stimulator placement 7. History of Bipolar 8. History of aggressive behavior[] Dragon Disclaimer Dragon Disclaimer This electronic medical record was generated, in whole or in part, using a voice recognition dictation system. THALIA QUINTERO MD May 05, 2018 03:53
--- NOTE | 2018-05-05 04:09 | RAD ---
PQRS Compliance Statement: One or more of the following individualized dose reduction techniques were utilized for this examination: 1. Automated exposure control 2. Adjustment of the mA and/or kV according to patient size 3. Use of iterative reconstruction technique CT head, maxillofacial and cervical spine without contrast 05/05/2018 3:13 AM INDICATION: Fall from bed to floor, inpatient COMPARISON: CT head May 01, 2018 TECHNIQUE: Multiple axial CT images of the head were obtained from skull base through the vertex without intravenous contrast. Multiple axial CT images of the cervical spine and maxillofacial structures were obtained without intravenous contrast. Coronal and sagittal reformats are provided. FINDINGS: Head: Deep brain stimulator leads are identified terminating in the region of the subthalamic nuclei. Ventricles, sulci and basal cisterns are within normal limits. There is no hydrocephalus. Bustillo-white matter differentiation is normal. There is no acute intracranial hemorrhage. There is no mass, mass effect or midline shift. Posterior fossa is normal in appearance. Osseous orbits are intact. Globes are spherical and contour. No intraconal or extraconal mass. There is mild mucosal thickening involving the ethmoid air cells. Maxillary sinuses are intact. There is mild mucosal thickening of the right maxillary sinus. There is occlusion of the right ostiomeatal unit secondary to mucosal thickening. Left ostiomeatal unit is widely patent. Nasal septum is minimally deviated to the right. Skull base is intact. Cervical spine: There is minimal retrolisthesis of C3 on C4. There is minimal retrolisthesis of C5 on C6.. Skull base is intact. Craniocervical junction is normal in appearance. Atlantoaxial articulation is normal. Vertebral body heights are maintained without evidence for acute fracture. At C5-C6, there is a posterior disc osteophyte complex asymmetric to the right with moderate facet arthropathy and moderate uncovertebral joint disease resulting in moderate to severe right and moderate left neuroforaminal stenosis. There is mild to moderate spinal canal stenosis. At C6-C7, there is a posterior disc osteophyte complex asymmetric to the right with mild facet and moderate to severe uncovertebral joint disease. There is moderate to severe right and moderate left neuroforaminal stenosis. There is mild/moderate spinal canal stenosis. There is no prevertebral soft tissue swelling. Thyroid gland is normal in appearance. Visualized portions of the lung apices are normal without evidence for suspicious pulmonary nodule or infiltrate. IMPRESSION: 1. No acute intracranial hemorrhage. No acute fracture involving the maxillofacial structures. Incidental findings detailed above. 2. No acute fracture of the cervical spine. 3. There is minimal anterolisthesis of C3 on C4 and minimal retrolisthesis of C5 on C6. Findings may be secondary to degenerative facet arthropathy. However in setting of trauma, ligamentous injury is a differential consideration. Electronically signed by: Cami Berrios MD (05/05/2018 4:06 AM) [facility]
[2018-05-05 05:24] VITALS: BP 114/64
[2018-05-05] MEDS ORDERED: DICLOFENAC SODIUM 1% TOPICAL GEL 100GM TUBE. TP PRN (05:45)
[2018-05-05] MEDS ORDERED: diazePAM 2 MG TABLET PO PRN (05:45)
[2018-05-05] MEDS ORDERED: BENZOCAINE/MENTHOL LOZNGE 18'S BOX. MM PRN (05:45)
[2018-05-05] MEDS ORDERED: ACETAMINOPHEN 325 MG TABLET PO PRN (05:45)
[2018-05-05] MEDS ORDERED: MAGNESIUM HYDROXIDE 2,400 MG/30 ML ORAL.SUSP. PO PRN (05:45)
[2018-05-05] MEDS ORDERED: IBUPROFEN 600 MG TABLET. PO PRN (05:45)
[2018-05-05] MEDS ORDERED: METHYL SALICYLATE/MENTHOL TOPICAL OINTMENT 29GM TUBE. TP PRN (05:45)
[2018-05-05] MEDS ORDERED: MAG HYDROX/AL HYDROX/SIMETH 30 ML ORAL.SUSP PO PRN (05:45)
[2018-05-05] MEDS ORDERED: traZODone 100 MG TABLET. PO PRN (05:45)
[2018-05-05] MEDS: IPRATROPIUM BROMIDE 0.5 MG/2.5 ML NEBU. NEB SCH ×4 (05:56→20:22)
[2018-05-05] MEDS: CARBIDOPA/LEVODOPA 25/100MG TABLET PO SCH ×9 (06:00→22:00)
[2018-05-05] MEDS ORDERED: HYDROCORTISONE 1% TOPICAL CREAM 30GM TUBE. TP PRN (07:45)
--- NOTE | 2018-05-05 07:48 | RAD ---
EXAM: AP View of the chest DATE: 05/05/2018 3:28 AM INDICATION: fell today, cough COMPARISON: No Prior FINDINGS/ IMPRESSION: Generator pack is seen overlying the right chest with leads extending toward the neck. The heart is not enlarged. Mediastinal and hilar contours are stable. Trace left pleural effusion. Minimal patchy bibasilar opacities likely atelectasis. No pneumothorax. Electronically signed by: Jimmie Fischer MD (05/05/2018 7:45 AM) [facility]
[2018-05-05] MEDS ORDERED: metFORMIN XR 500 MG TAB.ER.24H PO SCH (08:00)
[2018-05-05] MEDS ORDERED: LACTULOSE 20 GM/30 ML SOLUTION. PO SCH (08:00)
[2018-05-05] MEDS ORDERED: FERROUS SULFATE 325 MG TABLET. PO SCH (08:00)
[2018-05-05] MEDS ORDERED: ASPIRIN 81 MG TAB.CHEW PO SCH (08:00)
[2018-05-05] MEDS: BENZONATATE 100 MG CAPSULE. PO SCH ×3 (08:07→20:03)
[2018-05-05] MEDS: NYSTATIN TOPICAL POWDER 15GM BOTTLE. TP SCH ×2 (08:07→20:08)
[2018-05-05] MEDS: LACTOBACILLUS RHAMNOSUS GG 1 CAPSULE. PO SCH ×2 (08:08→20:03)
[2018-05-05] MEDS: MAGNESIUM OXIDE 400 MG TABLET PO SCH ×2 (08:08→20:03)
[2018-05-05] MEDS: MEMANTINE 10 MG TABLET. PO SCH ×2 (08:08→17:29)
[2018-05-05] MEDS: DOCUSATE SODIUM 100 MG CAPSULE PO SCH ×2 (08:08→20:03)
[2018-05-05] MEDS ORDERED: LINACLOTIDE 145 MCG CAPSULE. PO SCH (09:00)
[2018-05-05] MEDS ORDERED: ASCORBIC ACID 500 MG TABLET PO SCH (09:00)
[2018-05-05] MEDS ORDERED: FLUTICASONE 50MCG/NASAL SPRAY 16GM BOTTLE. NS SCH (09:00)
[2018-05-05] MEDS ORDERED: SERTRALINE 25 MG TABLET. PO SCH (09:00)
[2018-05-05] MEDS ORDERED: CHOLECALCIFEROL (VITAMIN D3) 50,000 UNIT CAPSULE PO SCH (09:00)
[2018-05-05] MEDS ORDERED: RIVASTIGMINE 9.5MG PATCH. TD SCH (09:00)
[2018-05-05] MEDS ORDERED: MICONAZOLE NITRATE 2% TOPICAL CREAM 28GM TUBE. TP PRN (09:00)
[2018-05-05] MEDS ORDERED: MULTIVITAMIN with MINERAL TABLET. PO SCH (09:00)
[2018-05-05] MEDS ORDERED: PRAVASTATIN 20 MG TABLET. PO SCH (09:00)
[2018-05-05] MEDS ORDERED: traZODone 50 MG TABLET. PO SCH (17:00)
[2018-05-05 17:03] VITALS: BP 125/79
--- NOTE | 2018-05-05 20:03 | PN ---
DATE: 05/05/2018 SUBJECTIVE: The patient was seen today, met with the staff, chart reviewed. Staff reports apparently he intentionally fell off the chair and then also observed, was hitting his head against the floor, apparently had a laceration on his skull, which was sutured. The patient denies it was a suicidal attempt, but the patient states he is angry because nobody was taking care of him and also upset that he cannot go home. The patient also lacking insight to his problems. The patient is not able to process information, high level of anxiety, agitation. [place] thinking. Impulse control problems. OBSERVATION: VITAL SIGNS: Temperature 97.1, blood pressure 114/64, pulse 67, respirations 20, O2 sat 92%. The patient slept only about 1 hour. The patient's appetite is fair. The patient currently on 1:1 observation. MEDICATIONS: The patient's current medications include Mirapex, carbidopa/levodopa. He is also on trazodone 150 mg at night, Seroquel 200 mg at night, melatonin 3 mg at night, Depakote 1500 mg at night. He is also on Pravachol 40 mg daily. The patient is also on Zoloft 75 mg daily, rivastigmine patch daily, aspirin, ferrous sulfate, Namenda 10 mg b.i.d., carbidopa/levodopa 0.5 mg tablets q. 2 hours. The patient has been noncompliant with the treatment. ASSESSMENT: Parkinson's, hyperlipidemia, sleep apnea, deep brain stimulator and also bruising on his forehead. PLAN: Continue with the current treatment. Continue on 1:1. MORRIS VALDEZ MD DR: HCRIST/nano JOB#: [id number] / [id number]
[2018-05-05] MEDS ORDERED: traZODone 150 MG TABLET. PO SCH (21:00)
[2018-05-05] MEDS ORDERED: PRAMIPEXOLE 0.5 MG TABLET. PO SCH (21:00)
[2018-05-05] MEDS ORDERED: CARBIDOPA/LEVODOPA CR 50/200MG TABLET.SA PO SCH (21:00)
[2018-05-05] MEDS ORDERED: QUEtiapine 100 MG TABLET. PO SCH (21:00)
[2018-05-05] MEDS ORDERED: MELATONIN 3 MG TABLET PO SCH (21:00)
[2018-05-05] MEDS ORDERED: DIVALPROEX SODIUM 250 MG TABLET.DR. PO SCH (21:00)
[2018-05-06] MEDS ORDERED: ALBUTEROL SULFATE 2.5 MG/3 ML NEBU. NEB PRN (02:15)
[2018-05-06] MEDS ORDERED: ALBU2.5V5 (04:17)
--- NOTE | 2018-05-22 15:29 | DS ---
DATE OF DISCHARGE: 05/06/2018 DISCHARGE/TRANSFER SUMMARY HOSPITAL COURSE: The patient is a 67-year-old male patient who was originally admitted to [facility] on 04/13/2018 after stabilizing him in [address] [place] [address], he was treated there with cellulitis. He was treated also previously at the [facility] for bipolar disorder secondary to Lewy body dementia with delusion, impulse control disorder and personality disorder symptoms. He unfortunately fell at [facility] on 05/05/2018 and was seen at the Emergency Room Department where he was evaluated by Dr. Cristian Boo and was diagnosed with head injury, left eyebrow contusion that he sustained 3 cm laceration. He also had injury secondary to his poor impulse control and anger outburst. The wound was sutured and was sent back to [facility] where he was noted to be bradycardic and hypoxic. He is known to have morbid obesity, obstructive sleep apnea; however, he refuses to keep the BiPAP mask on and therefore, the patient was transferred to [address] [place] [address] after I have ordered some lab work including a chest x-ray, which showed that he has patchy bilateral opacities and his lab work has also showed that although his white cell count was normal, he was hypoxic and bradycardic, and therefore, he was transferred to [address] [place] [address]. We did order lab work including CBC, CMP, 12-lead EKG and a chest x-ray, and was transferred to [address] [place] [address] on the following medications: Tylenol 650 mg every 6 hours as needed, albuterol sulfate by nebulizer every 4 hours, ascorbic acid 500 mg once a day, aspirin 81 mg once a day, benzocaine for sore throat lozenges one every 2 hours as needed, benzonatate 100 mg 3 times a day, carbidopa/levodopa 25/100 mg, he takes half a tablet every 2 hours for Parkinson's disease. He is also on carbidopa/levodopa extended release 50/200 one tablet at bedtime. He was also discharged on cholecalciferol for vitamin D3 50,000 units once a week, diazepam 2 mg every 6 hours, diclofenac sodium for Voltaren gel 3 times a day, divalproex 1500 mg at bedtime, Colace 100 mg twice a day, ferrous sulfate 325 mg twice a day, Flonase 2 sprays to each nostril once a day, guaifenesin 600 mg twice a day, hydrocortisone cream applied topically twice a day, ibuprofen 600 mg twice a day, ipratropium bromide 0.2 mg/1 mL 4 times a day, lactobacillus rhamnosus 1 capsule twice a day, lactulose 15 mL once a day, Linzess 145 mcg once a day, Mylanta 30 mL p.o. every 4 hours as needed, milk of magnesia 30 mL p.o. daily as needed, magnesium oxide 400 mg twice a day, melatonin 3 mg at bedtime, Namenda 10 mg twice a day, metformin for Glucophage-XR 500 mg, he takes 2 tablets once a day, multivitamin 1 tablet once a day, olanzapine for Zyprexa Zydis 5 mg every 2 hours, pramipexole for Mirapex 0.5 mg at bedtime, pravastatin 40 mg daily, quetiapine fumarate 200 mg at bedtime, rivastigmine for Exelon 9.5 mg in 24 hour patch topically once a day, sertraline for Zoloft 75 mg once a day, trazodone 50 mg at bedtime and trazodone 150 mg at bedtime for insomnia. FINAL DISCHARGE DIAGNOSES: 1. Healthcare-associated pneumonia. 2. The patient has a fall with traumatic laceration to his left eyebrow sutured in the Emergency Room. Other medical problems include morbid obesity with obstructive sleep apnea, Parkinson's disease, hyperlipidemia, Lewy body dementia with ongoing delusion, personality disorder and impulse control disorder. JOHN MOY MD DR: DEB/nano JOB#: [id number] / [id number]
== END 2018-05-06 04:35 | disposition short-term general hospital (02) | DRG 56 ==
LOC: ER 02:56 → GEROPSY 04:54
PROVIDERS: ADMIT Psychiatry & Neurology Psychiatry; ATTEND Psychiatry & Neurology Psychiatry
PROC: 0HQ1XZZ Repair Face Skin, External Approach (ICD-10-PCS; principal; 2018-05-05)
DX: G20 Parkinson's disease (principal); J18.9 Pneumonia, unspecified organism; E78.5 Hyperlipidemia, unspecified; F02.80 Dementia in other diseases classified elsewhere, unspecified severity, without behavioral disturbance, psychotic disturbance, mood disturbance, and anxiety; F60.3 Borderline personality disorder; F31.9 Bipolar disorder, unspecified; S50.311A Abrasion of right elbow, initial encounter; S80.211A Abrasion, right knee, initial encounter; W07.XXXA Fall from chair, initial encounter; E66.9 Obesity, unspecified; Z87.828 Personal history of other (healed) physical injury and trauma; Y93.89 Activity, other specified; Y92.89 Other specified places as the place of occurrence of the external cause; Y99.8 Other external cause status; Z91.19 Patient's noncompliance with other medical treatment and regimen; E66.01 Morbid (severe) obesity due to excess calories; F63.9 Impulse disorder, unspecified; G47.33 Obstructive sleep apnea (adult) (pediatric); R09.02 Hypoxemia; S01.112A Laceration without foreign body of left eyelid and periocular area, initial encounter
CPT/HCPCS: 12013; 36415; 70450; 70486; 71045; 72125; 80048; 80076; 85025; 85610; 85730; 90471; 90715; 94640; J7613; J7644; 99285-25

== ENCOUNTER 2018-05-06 04:38 | Inpatient (IN) | payer MEDICARE ==
[~2018-05-06] VITALS: Ht 188 cm; Wt 137.1 kg
[~2018-05-06 04:38] MED LIST changes: +ALBU2.5V5
[2018-05-06 05:14] VITALS: BP 151/61
[2018-05-06 06:25] LABS: BASO % 0 % (0-3); EOS % 0 % (0-3); HEMATOCRIT 32.6 % (39.0-53.0); LYMPH % 13 % (24-48); MEAN CORPUSCULAR HEMOGLOBIN 31 pg (25-35); MEAN CORPUSCULAR HGB CONC 34 g/dL (31-37); MEAN CORPUSCULAR VOLUME 92 fL (79-100); MONO # 1.2 x10^3/uL (0.0-1.1); MONO % 16 % (0-9); NEUT # 5.4 x10^3uL (1.8-7.7); NEUT % 71 % (31-73); PLATELET COUNT 128 x10^3/uL (140-400); RED BLOOD COUNT 3.56 x10^6/uL (4.30-5.70); RED CELL DISTRIBUTION WIDTH 13.5 % (11.5-14.5); WHITE BLOOD COUNT 7.6 x10^3/uL (4.0-11.0)
[2018-05-06 06:34] LABS: ALBUMIN 2.6 g/dL (3.4-5.0); ALBUMIN/GLOBULIN RATIO 0.8 (1.0-1.7); CALCIUM 8.4 mg/dL (8.5-10.1); CREATININE 0.8 mg/dL (0.7-1.3); GFR 96.7; POTASSIUM 4.1 mmol/L (3.5-5.1); TOTAL BILIRUBIN 0.4 mg/dL (0.2-1.0); TOTAL PROTEIN 5.8 g/dL (6.4-8.2)
[2018-05-06 06:55] LABS: BGAS PH 7.36 (7.35-7.46)
[2018-05-06] MEDS ORDERED: DICLOFENAC SODIUM 1% TOPICAL GEL 100GM TUBE. TP PRN (07:00)
[2018-05-06] MEDS ORDERED: MAG HYDROX/AL HYDROX/SIMETH 30 ML ORAL.SUSP PO PRN (07:00)
[2018-05-06] MEDS ORDERED: ALBUTEROL SULFATE 2.5 MG/3 ML NEBU. NEB PRN (07:00)
[2018-05-06] MEDS ORDERED: METHYL SALICYLATE/MENTHOL TOPICAL OINTMENT 29GM TUBE. TP PRN (07:00)
[2018-05-06] MEDS ORDERED: IBUPROFEN 600 MG TABLET. PO PRN (07:15)
[2018-05-06] MEDS ORDERED: MAGNESIUM HYDROXIDE 2,400 MG/30 ML ORAL.SUSP. PO PRN (07:30)
[2018-05-06] MEDS ORDERED: HYDROCORTISONE 1% TOPICAL CREAM 30GM TUBE. TP PRN (07:45)
--- NOTE | 2018-05-06 07:45 | RAD ---
Portable left foot, 2 views, 05/06/2018: HISTORY: Fall, foot pain There is patchy bony demineralization. There are moderate degenerative changes at the mid foot level. There is mild degenerative change at the first MTP joint and scattered interphalangeal joints. Degenerative changes also evident at the ankle joint. No acute fracture or dislocation is identified. Moderate diffuse soft tissue swelling is present. IMPRESSION: 1. Demineralization. 2. Degenerative change. 3. No acute bony abnormality is detected. Electronically signed by: Russell Go MD (05/06/2018 7:42 AM) [facility]
--- NOTE | 2018-05-06 07:49 | RAD ---
Portable chest, 05/06/2018: HISTORY: Shortness of breath, fall Comparison is made to yesterday's study. There is electronic device overlying the right chest with a lead extending into the right neck. The heart is at the upper limits of normal in size and unchanged. The pulmonary vascularity is within normal limits. Minimal atelectasis/infiltrate has developed in the right base partially obscuring the hemidiaphragm. There are overlying rib deformities and old surgical implants at this level. No left lung infiltrate is seen. There is no evidence of pneumothorax or pleural fluid. IMPRESSION: Minimal right basilar atelectasis/infiltrate. Electronically signed by: Russell Go MD (05/06/2018 7:46 AM) [facility]
[2018-05-06] MEDS: FERROUS SULFATE 325 MG TABLET. PO SCH (08:05)
[2018-05-06] MEDS: LINACLOTIDE 145 MCG CAPSULE. PO SCH (08:05)
[2018-05-06] MEDS: MEMANTINE 10 MG TABLET. PO SCH ×2 (08:05→16:51)
[2018-05-06] MEDS: LACTULOSE 20 GM/30 ML SOLUTION. PO SCH (08:06)
[2018-05-06] MEDS: ASPIRIN 81 MG TAB.CHEW PO SCH (08:06)
[2018-05-06] MEDS: CARBIDOPA/LEVODOPA 25/100MG TABLET PO SCH ×8 (08:06→22:00)
[2018-05-06] MEDS: metFORMIN XR 500 MG TAB.ER.24H PO SCH (08:06)
[2018-05-06] MEDS ORDERED: IPRATROPIUM BROMIDE 0.5 MG/2.5 ML NEBU. NEB SCH (09:00)
[2018-05-06] MEDS ORDERED: MICONAZOLE NITRATE 2% TOPICAL CREAM 28GM TUBE. TP PRN (09:00)
[2018-05-06] MEDS: BENZOCAINE/MENTHOL LOZNGE 18'S BOX. MM PRN ×4 (09:01→19:23)
[2018-05-06] MEDS: LACTOBACILLUS RHAMNOSUS GG 1 CAPSULE. PO SCH ×2 (09:23→21:20)
[2018-05-06] MEDS: RIVASTIGMINE 9.5MG PATCH. TD SCH (09:24)
[2018-05-06] MEDS: BENZONATATE 100 MG CAPSULE. PO SCH ×3 (09:25→21:19)
[2018-05-06] MEDS: MULTIVITAMIN with MINERAL TABLET. PO SCH (09:25)
[2018-05-06] MEDS: FLUTICASONE 50MCG/NASAL SPRAY 16GM BOTTLE. NS SCH (09:25)
[2018-05-06] MEDS: ASCORBIC ACID 500 MG TABLET PO SCH (09:25)
[2018-05-06] MEDS: MAGNESIUM OXIDE 400 MG TABLET PO SCH ×2 (09:25→21:19)
[2018-05-06] MEDS: PRAVASTATIN 20 MG TABLET. PO SCH (09:25)
[2018-05-06] MEDS: SERTRALINE 25 MG TABLET. PO SCH (09:25)
[2018-05-06] MEDS: DOCUSATE SODIUM 100 MG CAPSULE PO SCH ×2 (09:25→21:19)
[2018-05-06] MEDS: NYSTATIN TOPICAL POWDER 15GM BOTTLE. TP SCH ×2 (09:30→21:27)
[2018-05-06] MEDS ORDERED: PIPERACILLIN/TAZOBACTAM 3.375 GM in IV NORMAL SALINE 50ML 50 ML IV SCH (10:30)
--- NOTE | 2018-05-06 11:11 | HP ---
ADMIT DATE: 05/06/2018 HISTORY OF PRESENT ILLNESS: The patient is a 67-year-old male patient who was transferred from [facility] as he was noted by the nursing staff to have episodes of bradycardia with heart rate that drops down to 40. He also was noted to be hypoxic with an oxygen saturation of 80%. He has obstructive sleep apnea; however, he does not keep his BiPAP as he has claustrophobia, feels suffocated. He is also complaining of cough with productive sputum, although was unsure about the color. Denied any chest pain. Did complain of shortness of breath. Denied any chills, rigors, or fever. On initial investigation, we did a chest x-ray which showed that he has right lower lobe infiltrate. His right ankle joint seems to be somewhat deformed; however, there is no evidence of any fracture. The patient will be admitted with diagnosis of healthcare-associated pneumonia. We will start him on IV antibiotic and bronchodilator, although I have not heard any wheezing. PAST MEDICAL HISTORY: Significant for Parkinson's disease, deep brain stimulator in place. He has hyperlipidemia, morbid obesity with obstructive sleep apnea. He has also had Lewy body dementia with ongoing delusion, irritability, also personality disorder and has been quite overbearing with staff members. He has also impulse control disorder. PAST SURGICAL HISTORY: Unremarkable. FAMILY HISTORY: Noncontributory. SOCIAL HISTORY: He is , does not smoke or drink alcohol or use recreational drugs. REVIEW OF SYSTEMS: As per history of present illness. PHYSICAL EXAMINATION GENERAL: When I examined him this morning, he was resting slightly propped up in bed, in no apparent respiratory distress. There was no pallor, jaundice, cyanosis, or thyromegaly. No jugular venous distention, but mild bilateral lower limb edema. VITAL SIGNS:: His heart rate was 56, blood pressure was 151/61, temperature was 97.4, respiratory rate was 24, and oxygen saturation was 94% on 2 liters of oxygen. HEAD, EYES, EARS, NOSE, AND THROAT: Showed normocephalic. He has raccoon eye with laceration over the left eyebrow with sutures still in place. NECK: Supple. HEART: Showed normal first and second heart sounds. No gallop, rub, or murmur. CHEST: Showed central trachea, equal bilateral chest expansion, good air entry. I could not really appreciate crepitation or rhonchi. ABDOMEN: Markedly distended, soft, nontender. NEUROLOGIC: He is sleepy, but arousable. All his cranial nerves are intact. He moves extremities without difficulty, although he is mostly bedbound, chair bound. IMPRESSION: He has Parkinson's disease. On arrival to [address] [place] [address], we did some lab work including a CBC, which showed a white cell count of 7600, hemoglobin 11, hematocrit 32, MCV 92, and platelet count of 128,000. His chemistry showed a serum sodium 136, potassium 4.1, chloride 98, bicarbonate 36, anion gap of 2, BUN 14, creatinine 0.8, estimated GFR was 96 mL per minute, his glucose was 112, calcium was 8.4. Total bilirubin, AST, ALT, alkaline phosphatase were normal. His total protein was 5.8, albumin 2.6. Beta-natriuretic peptide was 806 pg/mL. His blood gases showed a pH of 7.36, pCO2 of 64, pO2 of 83, bicarbonate 37, oxygen saturation was 96% on FiO2 of 28%. His chest x-ray showed that the heart is the upper limit of normal in size and unchanged. The pulmonary vascularity is within normal limits. Minimal atelectasis/infiltrate has developed in the right base partially obscuring the hemidiaphragms. There are overlying rib deformities and old surgical implants. At this level, no left lung infiltrate is seen. There is no evidence of pneumothorax or pleural effusion. 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 An x-ray was done, which showed that there are moderate degenerative changes at the mid foot level. There are mild degenerative changes at the first metatarsophalangeal joint and scattered interphalangeal joint degenerative changes also evident at the ankle joint. No acute fracture or dislocation is identified. Moderate diffuse soft tissue swelling is present. PLAN: My plan is to continue with his medication from [facility] and consult Dr. Martins to continue following him. I will start him on IV antibiotic for healthcare-associated pneumonia after obtaining sputum for culture and sensitivity. JOHN MOY MD DR: DEB/nano JOB#: [id number] / [id number]
[2018-05-06] MEDS: VANCOMYCIN PER PHARMACY MC PRN ×2 (11:12→11:13)
[2018-05-06] MEDS: PIPERACILLIN/TAZOBACTAM 4.5 GM in IV NORMAL SALINE 50ML 50 ML IV SCH ×2 (11:14→19:24)
[2018-05-06 11:39] VITALS: BP 126/76
--- NOTE | 2018-05-06 11:40 | EKG ---
[address] [address] Test Date: 2018-05-06 Test Time: 11:00:49 Pat Name: QUINTIN KINGSLEY Department: Room: 125 A Gender: M [employer]: HUMBERTO : 1950 Requested By: JOHN MOY Order Number: [id number] Reading MD: Harris Polk Measurements Intervals [place] Rate: 50 P: 0 WI: 182 QRS: -34 QRSD: 178 T: 126 QT: 500 QTc: 455 Interpretive Statements SINUS RHYTHM LOW LIMB LEAD VOLTAGE NON SPECIFIC INTRAVENTRICULAR BLOCK ABNORMAL ECG Electronically Signed On 05-13-2018 10:36:02 MARKETING PRODUCTION COORDINATOR by Harris Polk
[2018-05-06] MEDS: VANCOMYCIN 2 GM in IV NORMAL SALINE 500ML 500 ML IV SCH ×2 (12:09→20:44)
[2018-05-06] MEDS: IPRATRPIUM/ALBUTEROL 0.5/2.5MG 3 ML NEBU. NEB SCH ×2 (14:20→20:48)
[2018-05-06 14:58] VITALS: BP 142/83
[2018-05-06] MEDS: traZODone 50 MG TABLET. PO SCH (16:51)
[2018-05-06 20:04] VITALS: BP 160/87
[2018-05-06] MEDS: ACETAMINOPHEN 325 MG TABLET PO PRN (21:19)
[2018-05-06] MEDS: MELATONIN 3 MG TABLET PO SCH (21:19)
[2018-05-06] MEDS: QUEtiapine 100 MG TABLET. PO SCH (21:19)
[2018-05-06] MEDS: traZODone 150 MG TABLET. PO SCH (21:19)
[2018-05-06] MEDS: CARBIDOPA/LEVODOPA CR 50/200MG TABLET.SA PO SCH (21:19)
[2018-05-06] MEDS: PRAMIPEXOLE 0.5 MG TABLET. PO SCH (21:20)
[2018-05-06] MEDS: DIVALPROEX SODIUM 250 MG TABLET.DR. PO SCH (21:27)
[2018-05-06 23:15] VITALS: BP 120/88
[2018-05-07] MEDS: PIPERACILLIN/TAZOBACTAM 4.5 GM in IV NORMAL SALINE 50ML 50 ML IV SCH ×3 (02:44→21:30)
[2018-05-07] MEDS: VANCOMYCIN 2 GM in IV NORMAL SALINE 500ML 500 ML IV SCH ×3 (04:07→17:37)
[2018-05-07] MEDS: IPRATRPIUM/ALBUTEROL 0.5/2.5MG 3 ML NEBU. NEB SCH ×4 (05:47→21:06)
[2018-05-07] MEDS: FERROUS SULFATE 325 MG TABLET. PO SCH (05:48)
[2018-05-07] MEDS: CARBIDOPA/LEVODOPA 25/100MG TABLET PO SCH ×9 (05:48→22:00)
[2018-05-07 06:01] LABS: BASO % 1 % (0-3); EOS # 0.3 x10^3/uL (0.0-0.7); EOS % 4 % (0-3); HEMATOCRIT 31.5 % (39.0-53.0); HEMOGLOBIN 10.7 g/dL (13.0-17.5); LYMPH % 16 % (24-48); MEAN CORPUSCULAR HEMOGLOBIN 31 pg (25-35); MEAN CORPUSCULAR HGB CONC 34 g/dL (31-37); MEAN CORPUSCULAR VOLUME 92 fL (79-100); MONO # 1.1 x10^3/uL (0.0-1.1); MONO % 17 % (0-9); NEUT # 4.1 x10^3uL (1.8-7.7); NEUT % 63 % (31-73); PLATELET COUNT 122 x10^3/uL (140-400); RED BLOOD COUNT 3.42 x10^6/uL (4.30-5.70); RED CELL DISTRIBUTION WIDTH 13.9 % (11.5-14.5); WHITE BLOOD COUNT 6.6 x10^3/uL (4.0-11.0)
[2018-05-07 06:07] VITALS: BP 121/72
[2018-05-07 06:19] LABS: ALBUMIN 2.4 g/dL (3.4-5.0); ALBUMIN/GLOBULIN RATIO 0.8 (1.0-1.7); CALCIUM 8.1 mg/dL (8.5-10.1); CREATININE 0.8 mg/dL (0.7-1.3); GFR 96.7; POTASSIUM 4.2 mmol/L (3.5-5.1); TOTAL BILIRUBIN 0.5 mg/dL (0.2-1.0); TOTAL PROTEIN 5.5 g/dL (6.4-8.2)
[2018-05-07] MEDS: LINACLOTIDE 145 MCG CAPSULE. PO SCH (07:36)
[2018-05-07] MEDS: MEMANTINE 10 MG TABLET. PO SCH ×2 (08:12→17:36)
[2018-05-07] MEDS: DOCUSATE SODIUM 100 MG CAPSULE PO SCH ×2 (08:12→21:30)
[2018-05-07] MEDS: metFORMIN XR 500 MG TAB.ER.24H PO SCH (08:12)
[2018-05-07] MEDS: LACTULOSE 20 GM/30 ML SOLUTION. PO SCH (08:13)
[2018-05-07] MEDS: PRAVASTATIN 20 MG TABLET. PO SCH (08:13)
[2018-05-07] MEDS: MULTIVITAMIN with MINERAL TABLET. PO SCH (08:13)
[2018-05-07] MEDS: ASCORBIC ACID 500 MG TABLET PO SCH (08:14)
[2018-05-07] MEDS: SERTRALINE 25 MG TABLET. PO SCH (08:14)
[2018-05-07] MEDS: ASPIRIN 81 MG TAB.CHEW PO SCH (08:15)
[2018-05-07] MEDS: BENZONATATE 100 MG CAPSULE. PO SCH ×3 (08:15→21:31)
[2018-05-07] MEDS: MAGNESIUM OXIDE 400 MG TABLET PO SCH ×2 (08:15→21:31)
[2018-05-07] MEDS: NYSTATIN TOPICAL POWDER 15GM BOTTLE. TP SCH ×2 (08:16→21:51)
[2018-05-07] MEDS: RIVASTIGMINE 9.5MG PATCH. TD SCH (08:16)
[2018-05-07] MEDS: LACTOBACILLUS RHAMNOSUS GG 1 CAPSULE. PO SCH ×2 (08:17→21:30)
[2018-05-07] MEDS: FLUTICASONE 50MCG/NASAL SPRAY 16GM BOTTLE. NS SCH (08:18)
[2018-05-07 10:10] VITALS: BP 127/79
[2018-05-07] MEDS: CARBIDOPA/LEVODOPA CR 50/200MG TABLET.SA PO SCH ×3 (10:17→21:31)
[2018-05-07] MEDS: BENZOCAINE/MENTHOL LOZNGE 18'S BOX. MM PRN ×4 (10:18→21:31)
[2018-05-07 11:48] LABS: VANC TR 20.9 mcg/mL (10.0-20.0)
[2018-05-07 14:38] VITALS: BP 143/82
[2018-05-07] MEDS ORDERED: guaiFENesin DM 200MG/20MG 10 ML SYRUP PO PRN (15:00)
[2018-05-07] MEDS: VANCOMYCIN PER PHARMACY MC PRN (15:12)
[2018-05-07] MEDS: traZODone 50 MG TABLET. PO SCH (17:36)
[2018-05-07 20:09] VITALS: BP 175/92
--- NOTE | 2018-05-07 20:31 | PN ---
DATE: 05/07/2018 SUBJECTIVE: The patient is sitting on the edge of the bed, eating his lunch comfortably, in no apparent distress. He continued to complain of some cough with scanty sputum, and also swelling and pain in his left ankle joint; however, had no chest pain or shortness of breath. Denied any chills, rigors or fever. OBJECTIVE: GENERAL: On examining him, he looked well and was clearly in no apparent respiratory distress, slightly pale, but no jaundice, cyanosis, or thyromegaly. No jugular venous distension. Mild bilateral lower limb edema. VITAL SIGNS: His heart rate was 61, blood pressure was 127/79, temperature was 97.6, respiratory rate was 20, and oxygen saturation was 95% on room air. HEAD, EYES, EARS, NOSE AND THROAT: Showed normocephalic, atraumatic. NECK: Supple. HEART: Showed normal first and second heart sounds with no gallop, rub or murmur. CHEST: Clear to auscultation. No crepitation or rhonchi. ABDOMEN: Distended, soft, nontender. No guarding or rigidity. No organomegaly. Hernial orifice intact. Bowel sounds normal. NEUROLOGIC: He was awake, alert, responding appropriately. Cranial nerves intact. He moves his upper extremities to much greater extent than lower extremities. He is mostly bed bound and chair bound. His intake over the last 24 hours was 3500, output was 950. LABORATORY DATA: His lab work this morning showed a white cell count of 6600, hemoglobin 10.7, hematocrit 31.5, MCV 92, and platelet count of 122,000. His chemistry showed a serum sodium 137, potassium 4.2, chloride 100, bicarbonate 37, anion gap of 0, BUN 15, creatinine 0.8, estimated GFR was 97 mL per minute. His glucose was 99, calcium was 8.1. Total bilirubin, AST, ALT, alkaline phosphatase were normal. His total protein was 5.5, albumin was 2.4. His vancomycin trough level was slightly high at 20.9. His nasal screen for MRSA by PCR was negative. ASSESSMENT: 1. Healthcare-associated pneumonia. 2. Morbid obesity with obstructive sleep apnea. 3. Parkinson's disease requiring deep brain stimulator, hyperlipidemia, Lewy body dementia with ongoing dilution, irritability and personality disorder, has severe impulse control disorder. 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 PLAN: My plan is to continue with the IV antibiotic in the form of Zosyn and vancomycin. His blood cultures so far negative. If the blood culture is negative tomorrow, we can discontinue vancomycin. JOHN MOY MD DR: DEB/nano JOB#: [id number] / [id number]
[2018-05-07] MEDS: PRAMIPEXOLE 0.5 MG TABLET. PO SCH (21:00)
[2018-05-07] MEDS: traZODone 100 MG TABLET. PO PRN (21:31)
[2018-05-07] MEDS: traZODone 150 MG TABLET. PO SCH (21:31)
[2018-05-07] MEDS: MELATONIN 3 MG TABLET PO SCH (21:31)
[2018-05-07] MEDS: QUEtiapine 100 MG TABLET. PO SCH (21:32)
[2018-05-07] MEDS: diazePAM 2 MG TABLET PO PRN (21:32)
[2018-05-07] MEDS: DIVALPROEX SODIUM 250 MG TABLET.DR. PO SCH (21:48)
[2018-05-07 23:05] VITALS: BP 130/75
[2018-05-08] MEDS: PIPERACILLIN/TAZOBACTAM 4.5 GM in IV NORMAL SALINE 50ML 50 ML IV SCH ×3 (03:33→19:08)
[2018-05-08] MEDS: VANCOMYCIN 2 GM in IV NORMAL SALINE 500ML 500 ML IV SCH (03:50)
[2018-05-08] MEDS: BENZOCAINE/MENTHOL LOZNGE 18'S BOX. MM PRN (03:51)
[2018-05-08] MEDS: FERROUS SULFATE 325 MG TABLET. PO SCH (05:27)
[2018-05-08] MEDS: CARBIDOPA/LEVODOPA 25/100MG TABLET PO SCH ×9 (05:27→22:15)
[2018-05-08] MEDS: IPRATRPIUM/ALBUTEROL 0.5/2.5MG 3 ML NEBU. NEB SCH ×4 (05:33→20:52)
[2018-05-08 05:53] VITALS: BP 157/81
[2018-05-08 06:30] LABS: BASO % 1 % (0-3); EOS # 0.4 x10^3/uL (0.0-0.7); EOS % 6 % (0-3); HEMATOCRIT 33.2 % (39.0-53.0); LYMPH % 15 % (24-48); MEAN CORPUSCULAR HEMOGLOBIN 31 pg (25-35); MEAN CORPUSCULAR HGB CONC 33 g/dL (31-37); MEAN CORPUSCULAR VOLUME 92 fL (79-100); MONO # 1.2 x10^3/uL (0.0-1.1); MONO % 17 % (0-9); NEUT # 4.2 x10^3uL (1.8-7.7); NEUT % 61 % (31-73); PLATELET COUNT 134 x10^3/uL (140-400); RED BLOOD COUNT 3.62 x10^6/uL (4.30-5.70); RED CELL DISTRIBUTION WIDTH 13.5 % (11.5-14.5); WHITE BLOOD COUNT 6.9 x10^3/uL (4.0-11.0)
[2018-05-08 06:43] LABS: CALCIUM 8.2 mg/dL (8.5-10.1); CREATININE 0.8 mg/dL (0.7-1.3); GFR 96.7; POTASSIUM 4.1 mmol/L (3.5-5.1)
--- NOTE | 2018-05-08 08:21 | RAD ---
CT of the head without contrast, 05/08/2018: HISTORY: Fall, head laceration, neck pain Comparison is made to a study from 05/05/2018. Bilateral stimulator leads extend into the thalamic regions bilaterally. Associated artifacts degrade image quality on some of these slices. The ventricles are within normal limits in size. There is no shift of the midline structures. There is no evidence of acute intracranial hemorrhage or mass effect. The bone windows show no evidence of a fracture. IMPRESSION: No acute intracranial abnormality is detected. CT of the facial bones without contrast, 05/08/2018: Noncontrast scans were obtained with multiplanar reconstructions produced. No acute fracture is identified. There is mucosal thickening in the paranasal sinuses, greatest in the right maxillary and both ethmoid sinuses. There is now a small amount of free fluid in the right maxillary sinus. The findings are compatible with sinusitis. There is mild soft tissue swelling over the left frontal/orbital regions compatible with a soft tissue contusion. The orbital contents are unremarkable. IMPRESSION: 1. No acute bony abnormality is detected. 2. Mild paranasal sinusitis. CT of the cervical spine without contrast, 05/08/2018: Noncontrast scans were obtained with multiplanar reconstructions produced. There is a mild cervical scoliosis. Motion artifact degrades image quality in the lower cervical spine. There is moderate disc space narrowing at multiple levels, particularly in the lower cervical spine, with moderate scattered marginal spurs. There are moderate degenerative changes involving multiple facet joints bilaterally. No acute fracture is identified. There is mild unchanged anterolisthesis at C3-4 due to facet joint arthropathy. There is mild associated narrowing of the central spinal canal and neural foramina at several levels. Similar findings were present on 05/05/2018. IMPRESSION: 1. Moderate multilevel degenerative change. 2. Suboptimal exam demonstrating no acute bony abnormality. PQRS Compliance Statement: One or more of the following individualized dose reduction techniques were utilized for this examination: 1. Automated exposure control 2. Adjustment of the mA and/or kV according to patient size 3. Use of iterative reconstruction technique Electronically signed by: Russell Go MD (05/08/2018 8:18 AM) [facility]
[2018-05-08] MEDS: RIVASTIGMINE 9.5MG PATCH. TD SCH (09:00)
[2018-05-08] MEDS: FLUTICASONE 50MCG/NASAL SPRAY 16GM BOTTLE. NS SCH (09:30)
[2018-05-08] MEDS: NYSTATIN TOPICAL POWDER 15GM BOTTLE. TP SCH ×2 (09:32→20:41)
[2018-05-08] MEDS: MAGNESIUM OXIDE 400 MG TABLET PO SCH ×2 (09:32→20:39)
[2018-05-08] MEDS: PRAVASTATIN 20 MG TABLET. PO SCH (09:32)
[2018-05-08] MEDS: SERTRALINE 25 MG TABLET. PO SCH (09:32)
[2018-05-08] MEDS: ASPIRIN 81 MG TAB.CHEW PO SCH (09:33)
[2018-05-08] MEDS: MEMANTINE 10 MG TABLET. PO SCH ×2 (09:33→16:59)
[2018-05-08] MEDS: DOCUSATE SODIUM 100 MG CAPSULE PO SCH ×2 (09:33→20:38)
[2018-05-08] MEDS: BENZONATATE 100 MG CAPSULE. PO SCH ×3 (09:33→20:40)
[2018-05-08] MEDS: ASCORBIC ACID 500 MG TABLET PO SCH (09:33)
[2018-05-08] MEDS: MULTIVITAMIN with MINERAL TABLET. PO SCH (09:33)
[2018-05-08] MEDS: LACTULOSE 20 GM/30 ML SOLUTION. PO SCH (09:33)
[2018-05-08] MEDS: metFORMIN XR 500 MG TAB.ER.24H PO SCH (09:34)
[2018-05-08] MEDS: LACTOBACILLUS RHAMNOSUS GG 1 CAPSULE. PO SCH ×2 (09:34→20:41)
[2018-05-08] MEDS: NEOMYCIN/BACITRAC/POLY TOPICAL OINTMENT 28GM TUBE. TP SCH (10:06)
[2018-05-08] MEDS: LINACLOTIDE 145 MCG CAPSULE. PO SCH (10:15)
[2018-05-08 10:41] VITALS: BP 149/93
[2018-05-08] MEDS: diazePAM 2 MG TABLET PO PRN (15:41)
[2018-05-08 16:11] LABS: VANC TR 17.2 mcg/mL (10.0-20.0)
[2018-05-08] MEDS: traZODone 50 MG TABLET. PO SCH (16:59)
[2018-05-08 20:11] VITALS: BP 170/71
--- NOTE | 2018-05-08 20:26 | PN ---
DATE: 05/08/2018 SUBJECTIVE: The patient is resting slightly propped up in bed, in no apparent respiratory distress. He apparently fell from bed early this morning and sustained laceration over his left forehead. He was taken to the Emergency Room where the laceration was sutured and has had CT scan of the head and cervical spine as well as facial bone. His CT scan of the head without contrast showed no acute intracranial abnormality. In particular, there is no evidence of acute intracranial hemorrhage or mass effect. The bone window showed no evidence of fracture. CT scan of the facial bones also showed no acute bony abnormalities detected. There is mild paranasal sinusitis and CT scan of the cervical spine without contrast showed that he has moderate multilevel degenerative changes. Suboptimal exam demonstrates no acute bony abnormality. His blood culture is negative as well as the sputum culture, and therefore, the vancomycin will be discontinued. I will continue with the Zosyn for now. When I examined him this afternoon, he looked well and he was clearly in no apparent respiratory distress. He is awake, alert, responding appropriately. Denied any complaint of pain. OBJECTIVE: GENERAL: When I examined him, he looked somewhat pale, but no jaundice, cyanosis or thyromegaly. No jugular venous distention. No limb edema. VITAL SIGNS: His heart rate was 73, blood pressure was 149/93, temperature was 97.4, respiratory rate was 20 and he is maintaining his oxygen saturation in fact at 95% on room air. HEAD, EYES, EARS, NOSE AND THROAT: Showed normocephalic, status post left forehead laceration that required suturing. NECK: Supple. HEART: Showed normal first and second heart sounds with no gallop, rub or murmur. CHEST: Clear to auscultation. No crepitation or rhonchi. ABDOMEN: Distended, soft, nontender. NEUROLOGIC: He is definitely awake, alert, responding appropriately. All cranial nerves intact. He moves extremities without difficulty. He is mostly bedbound, wheelchair bound. PLAN: To keep the patient in [facility] for now to make sure that he is stable. I will discontinue the vancomycin, continue with the Zosyn for tonight and probably switch him tomorrow to Augmentin. FINAL ASSESSMENT: 1. Healthcare-associated pneumonia. 2. Morbid obesity, obstructive sleep apnea. 3. Parkinson's disease requiring deep brain stimulator. 4. Hyperlipidemia. 5. Lewy body dementia with ongoing delusions, irritability and personality disorder. 6. Severe impulse control disorder. 7. He has neuropathic arthropathy of his left ankle joint. 8. Fall with another laceration to the left forehead that required suturing, but there is no evidence of any intracranial pathology. No cervical spine fracture or dislocation and facial bones are intact. JOHN MOY MD DR: DEB/nano JOB#: [id number] / [id number]
[2018-05-08] MEDS: MELATONIN 3 MG TABLET PO SCH (20:38)
[2018-05-08] MEDS: traZODone 150 MG TABLET. PO SCH (20:38)
[2018-05-08] MEDS: DIVALPROEX SODIUM 250 MG TABLET.DR. PO SCH (20:38)
[2018-05-08] MEDS: QUEtiapine 100 MG TABLET. PO SCH (20:39)
[2018-05-08] MEDS: PRAMIPEXOLE 0.5 MG TABLET. PO SCH (21:53)
--- NOTE | 2018-05-08 22:41 | PN ---
DATE: 05/08/2018 SUBJECTIVE: The patient was seen today, met with the staff, chart reviewed. The patient apparently making some progress upon treated for pneumonia, currently he is off the vancomycin. The patient is still anxious, nervous, having difficulty with his speech at times, but denies of any major problems. The patient apparently was transferred [facility] to the medical floor because he had difficulty breathing, also he had bradycardia. The patient also was hitting his head on the floor intentionally and also falling to the floor. OBSERVATION: The patient currently not exhibiting any major problems. MEDICATIONS: The patient will continue on this current medications including trazodone 150 mg at night, Seroquel 200 mg at night, melatonin 3 mg at night, Depakote 1500 mg at night, Zoloft 75 mg daily, Exelon patch daily, also Namenda 10 mg b.i.d. MORRIS VALDEZ MD DR: CHRIST/nano JOB#: [id number] / [id number]
[2018-05-09] MEDS: diazePAM 2 MG TABLET PO PRN ×2 (02:57→22:04)
[2018-05-09] MEDS: PIPERACILLIN/TAZOBACTAM 4.5 GM in IV NORMAL SALINE 50ML 50 ML IV SCH ×2 (02:57→13:33)
[2018-05-09] MEDS: IPRATRPIUM/ALBUTEROL 0.5/2.5MG 3 ML NEBU. NEB SCH ×4 (05:50→20:56)
[2018-05-09 06:09] VITALS: BP 130/79
[2018-05-09] MEDS: FERROUS SULFATE 325 MG TABLET. PO SCH (06:13)
[2018-05-09] MEDS: CARBIDOPA/LEVODOPA 25/100MG TABLET PO SCH ×9 (06:13→22:00)
[2018-05-09 06:54] LABS: HEMATOCRIT 33.9 % (39.0-53.0); HEMOGLOBIN 11.3 g/dL (13.0-17.5); RED BLOOD COUNT 3.68 x10^6/uL (4.30-5.70); RED CELL DISTRIBUTION WIDTH 13.8 % (11.5-14.5); WHITE BLOOD COUNT 6.5 x10^3/uL (4.0-11.0)
[2018-05-09 07:26] LABS: ALBUMIN 2.7 g/dL (3.4-5.0); ALBUMIN/GLOBULIN RATIO 0.8 (1.0-1.7); CALCIUM 8.6 mg/dL (8.5-10.1); CREATININE 0.8 mg/dL (0.7-1.3); GFR 96.7; POTASSIUM 4.1 mmol/L (3.5-5.1); TOTAL BILIRUBIN 0.7 mg/dL (0.2-1.0); TOTAL PROTEIN 6.1 g/dL (6.4-8.2)
[2018-05-09] MEDS: DOCUSATE SODIUM 100 MG CAPSULE PO SCH ×2 (07:54→22:02)
[2018-05-09] MEDS: ACETAMINOPHEN 325 MG TABLET PO PRN (07:54)
[2018-05-09] MEDS: SERTRALINE 25 MG TABLET. PO SCH (07:54)
[2018-05-09] MEDS: MULTIVITAMIN with MINERAL TABLET. PO SCH (07:54)
[2018-05-09] MEDS: ASPIRIN 81 MG TAB.CHEW PO SCH (07:54)
[2018-05-09] MEDS: PRAVASTATIN 20 MG TABLET. PO SCH (07:55)
[2018-05-09] MEDS: LACTULOSE 20 GM/30 ML SOLUTION. PO SCH (07:55)
[2018-05-09] MEDS: LACTOBACILLUS RHAMNOSUS GG 1 CAPSULE. PO SCH ×2 (07:55→22:01)
[2018-05-09] MEDS: metFORMIN XR 500 MG TAB.ER.24H PO SCH (07:55)
[2018-05-09] MEDS: ASCORBIC ACID 500 MG TABLET PO SCH (07:55)
[2018-05-09] MEDS: BENZONATATE 100 MG CAPSULE. PO SCH ×3 (07:55→22:01)
[2018-05-09] MEDS: MAGNESIUM OXIDE 400 MG TABLET PO SCH ×2 (07:55→22:02)
[2018-05-09] MEDS: NYSTATIN TOPICAL POWDER 15GM BOTTLE. TP SCH ×2 (07:56→21:00)
[2018-05-09] MEDS: NEOMYCIN/BACITRAC/POLY TOPICAL OINTMENT 28GM TUBE. TP SCH (07:56)
[2018-05-09] MEDS: RIVASTIGMINE 9.5MG PATCH. TD SCH (07:56)
[2018-05-09] MEDS: FLUTICASONE 50MCG/NASAL SPRAY 16GM BOTTLE. NS SCH (07:57)
[2018-05-09] MEDS: MEMANTINE 10 MG TABLET. PO SCH ×2 (07:57→17:22)
[2018-05-09] MEDS: LINACLOTIDE 145 MCG CAPSULE. PO SCH (07:57)
[2018-05-09 11:29] VITALS: BP 159/101
--- NOTE | 2018-05-09 14:59 | PN ---
DATE: 05/09/2018 SUBJECTIVE: The patient is sitting on the edge of the bed comfortably, in no apparent distress. He continued to complain of pain in his left leg, especially left ankle and foot, pain in his neck; however, we have explained to him that the x-ray showed no evidence of fracture. He is already on antibiotic. He has raccoon eyes in both sides, but he has no problem with vision. OBJECTIVE: GENERAL: When I examined him, he looked well and was clearly in no apparent respiratory distress. No pallor, jaundice, cyanosis, lymphadenopathy or thyromegaly. No jugular venous distension. No limb edema. VITAL SIGNS: His heart rate was 94, blood pressure 159/101, temperature was 98, respiratory rate 24, and oxygen saturation was 91%. HEAD, EYES, EARS, NOSE AND THROAT: He is normocephalic, status post fall with a left forehead laceration, requiring suturing and has bilateral raccoon eyes. NECK: Supple. HEART: Showed normal first and second heart sounds with no gallop, rub or murmur. CHEST: Clear to auscultation. No crepitation or rhonchi. ABDOMEN: Distended, soft, nontender. NEUROLOGIC: He is awake, alert, responding appropriately. All cranial nerves intact. He moves extremities without difficulty. He apparently mostly bed bound and chair bound. His intake over the last 24 hours was 3400, output was 2015. LABORATORY DATA: As of this morning, his white cell count was 6500, hemoglobin 11, hematocrit 33, MCV 92, and platelet count of 140,000. His chemistry showed a serum sodium 135, potassium 4.1, chloride 95, bicarbonate 37, anion gap of 3, BUN 12, creatinine 0.8, estimated GFR was 97 mL per minute. His glucose was 105, calcium was 8.6. Total bilirubin, AST, ALT, alkaline phosphatase were normal. His total protein was 6.1, albumin was 2.7. His nasal screen for MRSA by PCR was negative. ASSESSMENT: 1. Healthcare-associated pneumonia with a blood culture so far negative. We discontinued the Zyvox. He is now on Zosyn. 2. Morbid obesity, obstructive sleep apnea. 3. Parkinson's disease, requiring deep brain stimulator. 4. Hyperlipidemia. 5. Lewy body dementia with ongoing delusion, irritability and personality disorder. 6. Severe impulsive control disorder. 7. The patient has neuropathic arthropathy of the left ankle joint. 8. Fall with another laceration of the left forehead requiring suturing. There is no evidence of any intracranial pathology, no cervical spine fracture or dislocation and facial bones are intact. PLAN: To continue with the IV antibiotic, continue with his other medications. I did put an order for physical and occupational therapy tomorrow. If he qualifies go upstairs, we will transfer [facility] to [facility] for further inpatient psychiatric stabilization. JOHN MOY MD DR: DEB/nano JOB#: [id number] / [id number]
[2018-05-09 15:06] VITALS: BP_SYST 109; BP_SYST 120; BP_DIAS 66; BP_DIAS 81
[2018-05-09] MEDS: traZODone 50 MG TABLET. PO SCH (17:22)
[2018-05-09 19:01] VITALS: BP 128/77
[2018-05-09] MEDS: PRAMIPEXOLE 0.5 MG TABLET. PO SCH (21:00)
[2018-05-09] MEDS: DIVALPROEX SODIUM 250 MG TABLET.DR. PO SCH (22:01)
[2018-05-09] MEDS: MELATONIN 3 MG TABLET PO SCH (22:01)
[2018-05-09] MEDS: traZODone 150 MG TABLET. PO SCH (22:01)
[2018-05-09] MEDS: CARBIDOPA/LEVODOPA CR 50/200MG TABLET.SA PO SCH (22:01)
[2018-05-09] MEDS: AMOXICILLIN/K CLAV 875/125MG TABLET. PO SCH (22:01)
[2018-05-09] MEDS: QUEtiapine 100 MG TABLET. PO SCH (22:02)
[2018-05-09] MEDS: traZODone 100 MG TABLET. PO PRN (23:22)
[2018-05-09 23:23] VITALS: BP 151/90
[2018-05-09 23:24] VITALS: BP 160/92
[2018-05-10] MEDS: IPRATRPIUM/ALBUTEROL 0.5/2.5MG 3 ML NEBU. NEB SCH ×2 (05:33→10:06)
[2018-05-10] MEDS: FERROUS SULFATE 325 MG TABLET. PO SCH (05:51)
[2018-05-10] MEDS: CARBIDOPA/LEVODOPA 25/100MG TABLET PO SCH ×5 (05:51→13:59)
[2018-05-10 06:16] VITALS: BP 130/82
[2018-05-10] MEDS: MULTIVITAMIN with MINERAL TABLET. PO SCH (09:48)
[2018-05-10] MEDS: PRAVASTATIN 20 MG TABLET. PO SCH (09:48)
[2018-05-10] MEDS: SERTRALINE 25 MG TABLET. PO SCH (09:49)
[2018-05-10] MEDS: BENZONATATE 100 MG CAPSULE. PO SCH ×2 (09:49→14:59)
[2018-05-10] MEDS: ASPIRIN 81 MG TAB.CHEW PO SCH (09:50)
[2018-05-10] MEDS: metFORMIN XR 500 MG TAB.ER.24H PO SCH (09:50)
[2018-05-10] MEDS: LACTOBACILLUS RHAMNOSUS GG 1 CAPSULE. PO SCH (09:50)
[2018-05-10] MEDS: MAGNESIUM OXIDE 400 MG TABLET PO SCH (09:50)
[2018-05-10] MEDS: ASCORBIC ACID 500 MG TABLET PO SCH (09:50)
[2018-05-10] MEDS: MEMANTINE 10 MG TABLET. PO SCH (09:50)
[2018-05-10] MEDS: DOCUSATE SODIUM 100 MG CAPSULE PO SCH (09:50)
[2018-05-10] MEDS: AMOXICILLIN/K CLAV 875/125MG TABLET. PO SCH (09:50)
[2018-05-10] MEDS: LACTULOSE 20 GM/30 ML SOLUTION. PO SCH (09:52)
[2018-05-10] MEDS: LINACLOTIDE 145 MCG CAPSULE. PO SCH (10:18)
[2018-05-10] MEDS: FLUTICASONE 50MCG/NASAL SPRAY 16GM BOTTLE. NS SCH (10:18)
[2018-05-10] MEDS: RIVASTIGMINE 9.5MG PATCH. TD SCH (10:19)
--- NOTE | 2018-05-10 12:25 | PN ---
DATE: 05/10/2018 SUBJECTIVE: The patient is resting, slightly propped up, sitting at the edge of the bed, eating his breakfast comfortably, in no apparent distress. His cough ____ has improved. He is awake, alert, responding appropriately. Denied any headache, denied any weakness, tingling, or numbness. PHYSICAL EXAMINATION: GENERAL: When I examined him, he looked well and was clearly in no apparent respiratory distress, pale, but no jaundice, cyanosis, or thyromegaly. No jugular venous distension. No limb edema. VITAL SIGNS: His heart rate was 55, blood pressure was 130/82, temperature was 97.7, respiratory rate was 22 and oxygen saturation was 95% on 2 liters of oxygen by nasal cannula. HEAD, EYES, EARS, NOSE AND THROAT: Showed he is normocephalic, status post fall with laceration of the left forehead, requiring suturing. He has bilateral raccoon eyes. NECK: Supple. HEART: Showed normal first and second heart sounds with no gallop, rub or murmur. CHEST: Clear to auscultation. No crepitation or rhonchi. ABDOMEN: Distended, soft, nontender. NEUROLOGIC: He is awake, alert, responding appropriately. All his cranial nerves are intact. He moves extremities without difficulty, although he is mostly bedbound, chair bound. Psychologically, he continues to be extremely impulsive. His intake over the last 24 hours was 800, output was 400. LABORATORY DATA: Showed a white cell count of 6500, hemoglobin 11, hematocrit 33, MCV 92, and platelet count of 140,000. His chemistry showed a serum sodium 135, potassium 4.1, chloride 95, bicarbonate 37, anion gap of 3, BUN 12, creatinine 0.8, estimated GFR was 96 mL per minute. His glucose was 105, calcium was 8.5. Total bilirubin, AST, ALT, alkaline phosphatase were normal. His CK was only 287. Total protein was 6.1, albumin was 2.7 and his blood and sputum culture so far negative. ASSESSMENT: 1. Healthcare-associated pneumonia with negative blood cultures. I discontinued his Zyvox as well as Zosyn. He is now on oral Augmentin. 2. Morbid obesity, obstructive sleep apnea. 3. Parkinson's disease, requiring deep brain stimulator. 4. Hyperlipidemia. 5. Lewy body, dementia with ongoing delusion, irritability and personality disorder. 6. Severe impulse control disorder. 7. The patient has a neuropathic arthropathy of his left ankle joint. 8. Fall with another laceration on the left forehead, requiring suturing. There is no evidence of any intracranial pathology. No cervical spine fracture and/or dislocation and facial bones are intact. PLAN: To continue with oral Augmentin. Continue with all his other medications. The patient will be screened by the [facility] if qualifies. We will discharge him and we will transfer him back today. JOHN MOY MD DR: DEB/nano JOB#: [id number] / [id number]
[2018-05-10] MEDS ORDERED: AMOX1TAB61 PO (17:01)
[2018-05-10] MEDS ORDERED: NEOM500T PO (17:30)
[2018-05-12] MEDS ORDERED: CHOLECALCIFEROL (VITAMIN D3) 50,000 UNIT CAPSULE PO SCH (09:00)
== END 2018-05-10 15:20 | DRG 193 ==
LOC: 1 SOUTH 04:38
PROVIDERS: ADMIT Internal Medicine; ATTEND Internal Medicine
PROC: 0HQ1XZZ Repair Face Skin, External Approach (ICD-10-PCS; principal; 2018-05-06)
DX: J18.9 Pneumonia, unspecified organism (principal); E43 Unspecified severe protein-calorie malnutrition; F02.80 Dementia in other diseases classified elsewhere, unspecified severity, without behavioral disturbance, psychotic disturbance, mood disturbance, and anxiety; R09.02 Hypoxemia; E66.01 Morbid (severe) obesity due to excess calories; E78.5 Hyperlipidemia, unspecified; F60.9 Personality disorder, unspecified; F63.9 Impulse disorder, unspecified; G31.83 Neurocognitive disorder with Lewy bodies; G47.33 Obstructive sleep apnea (adult) (pediatric); M12.9 Arthropathy, unspecified; S01.81XA Laceration without foreign body of other part of head, initial encounter; Y95 Nosocomial condition; W06.XXXA Fall from bed, initial encounter; Z68.38 Body mass index [BMI] 38.0-38.9, adult; Y93.89 Activity, other specified; Y92.098 Other place in other non-institutional residence as the place of occurrence of the external cause; Y99.8 Other external cause status; Z79.899 Other long term (current) drug therapy
CPT/HCPCS: 36415; 70450; 70486; 71045; 72125; 73620; 80048; 80053; 80202; 82550; 82803; 83880; 84484; 85025; 85027; 87040; 87070; 87205; 87641; 93005; 94640; J2543; J3370; J7040; J7613; J7620; J7644; 92610

== ENCOUNTER 2018-05-10 15:32 | Inpatient (IN) | payer MEDICARE ==
[~2018-05-10] VITALS: Ht 188 cm; Wt 146.1 kg
[2018-05-10 15:50] VITALS: BP 159/99
[2018-05-10] MEDS ORDERED: AMOX1TAB61 PO (17:01)
[2018-05-10] MEDS ORDERED: NEOM500T PO (17:30)
[2018-05-10] MEDS ORDERED: MAG HYDROX/AL HYDROX/SIMETH 30 ML ORAL.SUSP PO PRN ×2 (17:45→18:15)
[2018-05-10] MEDS ORDERED: ALBUTEROL SULFATE 2.5 MG/3 ML NEBU. NEB PRN (17:45)
[2018-05-10] MEDS ORDERED: DICLOFENAC SODIUM 1% TOPICAL GEL 100GM TUBE. TP PRN (17:45)
[2018-05-10] MEDS ORDERED: METHYL SALICYLATE/MENTHOL TOPICAL OINTMENT 29GM TUBE. TP PRN ×2 (17:45→18:15)
[2018-05-10] MEDS ORDERED: ACETAMINOPHEN 325 MG TABLET PO PRN (18:15)
[2018-05-10] MEDS ORDERED: MAGNESIUM HYDROXIDE 2,400 MG/30 ML ORAL.SUSP. PO PRN ×2 (18:15→18:30)
[2018-05-10] MEDS: CARBIDOPA/LEVODOPA 25/100MG TABLET PO SCH ×3 (19:11→22:00)
[2018-05-10] MEDS: traZODone 50 MG TABLET. PO SCH (19:11)
[2018-05-10] MEDS: MEMANTINE 10 MG TABLET. PO SCH (19:11)
[2018-05-10] MEDS ORDERED: HYDROCORTISONE 1% TOPICAL CREAM 30GM TUBE. TP PRN (19:15)
[2018-05-10] MEDS: IPRATROPIUM BROMIDE 0.5 MG/2.5 ML NEBU. NEB SCH (19:55)
[2018-05-10] MEDS: AMOXICILLIN/K CLAV 875/125MG TABLET. PO SCH (20:56)
[2018-05-10] MEDS: traZODone 150 MG TABLET. PO SCH (20:56)
[2018-05-10] MEDS: PRAMIPEXOLE 0.5 MG TABLET. PO SCH (20:57)
[2018-05-10] MEDS: BENZONATATE 100 MG CAPSULE. PO SCH (20:57)
[2018-05-10] MEDS: MELATONIN 3 MG TABLET PO SCH (20:57)
[2018-05-10] MEDS: QUEtiapine 100 MG TABLET. PO SCH (20:59)
[2018-05-10] MEDS: DOCUSATE SODIUM 100 MG CAPSULE PO SCH (20:59)
[2018-05-10] MEDS: CARBIDOPA/LEVODOPA CR 50/200MG TABLET.SA PO SCH (20:59)
[2018-05-10] MEDS: MAGNESIUM OXIDE 400 MG TABLET PO SCH (20:59)
[2018-05-10] MEDS: DIVALPROEX SODIUM 250 MG TABLET.DR. PO SCH (20:59)
[2018-05-10] MEDS: LACTOBACILLUS RHAMNOSUS GG 1 CAPSULE. PO SCH (20:59)
[2018-05-10] MEDS ORDERED: MICONAZOLE NITRATE 2% TOPICAL CREAM 28GM TUBE. TP PRN (21:00)
[2018-05-10] MEDS: NYSTATIN TOPICAL POWDER 15GM BOTTLE. TP SCH (21:00)
[2018-05-10] MEDS: diazePAM 2 MG TABLET PO PRN (22:04)
[2018-05-10] MEDS: BENZOCAINE/MENTHOL LOZNGE 18'S BOX. MM PRN (22:05)
[2018-05-11] MEDS: IPRATROPIUM BROMIDE 0.5 MG/2.5 ML NEBU. NEB SCH ×4 (05:37→20:14)
[2018-05-11] MEDS: CARBIDOPA/LEVODOPA 25/100MG TABLET PO SCH ×9 (05:40→21:27)
[2018-05-11] MEDS: FERROUS SULFATE 325 MG TABLET. PO SCH (05:40)
[2018-05-11 05:44] VITALS: BP 157/101
[2018-05-11] MEDS: AMOXICILLIN/K CLAV 875/125MG TABLET. PO SCH ×2 (08:20→20:16)
[2018-05-11] MEDS: LACTOBACILLUS RHAMNOSUS GG 1 CAPSULE. PO SCH ×2 (08:21→20:15)
[2018-05-11] MEDS: DOCUSATE SODIUM 100 MG CAPSULE PO SCH ×2 (08:21→20:15)
[2018-05-11] MEDS: LINACLOTIDE 145 MCG CAPSULE. PO SCH (08:21)
[2018-05-11] MEDS: BENZONATATE 100 MG CAPSULE. PO SCH ×3 (08:22→20:16)
[2018-05-11] MEDS: MAGNESIUM OXIDE 400 MG TABLET PO SCH ×2 (08:22→20:16)
[2018-05-11] MEDS: MEMANTINE 10 MG TABLET. PO SCH ×2 (08:23→16:43)
[2018-05-11] MEDS: FLUTICASONE 50MCG/NASAL SPRAY 16GM BOTTLE. NS SCH (08:23)
[2018-05-11] MEDS: LACTULOSE 20 GM/30 ML SOLUTION. PO SCH (08:29)
[2018-05-11] MEDS: RIVASTIGMINE 9.5MG PATCH. TD SCH (08:29)
[2018-05-11] MEDS: SERTRALINE 25 MG TABLET. PO SCH (08:30)
[2018-05-11] MEDS: ASPIRIN ENTERIC COATED 81 MG TABLET.DR. PO SCH (08:31)
[2018-05-11] MEDS: ASCORBIC ACID 500 MG TABLET PO SCH (08:31)
[2018-05-11] MEDS: MULTIVITAMIN with MINERAL TABLET. PO SCH (08:31)
[2018-05-11] MEDS: NYSTATIN TOPICAL POWDER 15GM BOTTLE. TP SCH ×2 (08:32→21:26)
[2018-05-11] MEDS: metFORMIN XR 500 MG TAB.ER.24H PO SCH (08:32)
[2018-05-11] MEDS: PRAVASTATIN 20 MG TABLET. PO SCH (08:32)
[2018-05-11] MEDS: diazePAM 2 MG TABLET PO PRN (08:41)
[2018-05-11] MEDS: IBUPROFEN 600 MG TABLET. PO PRN (12:21)
[2018-05-11 16:07] VITALS: BP 122/75
[2018-05-11] MEDS: traZODone 50 MG TABLET. PO SCH (16:44)
--- NOTE | 2018-05-11 19:35 | PSYEV ---
DATE OF SERVICE: 05/11/2018 PSYCHIATRIC EVALUATION REASON FOR ADMISSION: This 67-year-old male, who was an inpatient at [facility], was transferred to the medical floor after seen by Dr. Rahman because of having episodes of bradycardia with heart rate dropping down to 40. He was also hypoxic with an oxygen saturation of 80%. The patient has obstructive sleep apnea, but he does not use his BiPAP machine because he is claustrophobic. The patient also had severe cough with productive sputum. The patient apparently also fell a couple of times and staff noticed he was also hitting his head against the floor. The patient has been here since 05/06/2018. The patient apparently was on the medical floor prior to that, was treated for cellulitis. The patient has been having multiple physical problems. The patient also almost in a panic mood. The patient stays he feels like he is having blackouts and sometimes he does not know what was going on. The patient also states he gets confused to the point he cannot comprehend what is going on around him. He gets panicky, having panic attacks in the middle of the night. The patient has been angry with the staff, constantly complaining is not getting the help that he needs. The patient has been diagnosed with the Lewy body disease. The patient also has some problems with thinking, disorganized, paranoia, high level of anxiety and the panic attacks. PAST MEDICAL HISTORY: History of Parkinson's disease with deep brain stimulator, hyperlipidemia, sleep apnea, obesity. MENTAL STATUS EXAMINATION: The patient now returned to the unit much improved. He is less anxious and tense, still having problems with sleep at night. He is afraid to use the BIPAP machine. The patient also has some paranoia. He is concerned about that he is going to be harmed, also accusing couple of staff are not treating him nice. His speech is clear, spontaneous, normal rate and rhythm. His affect and mood showed he is highly anxious, nervous, having panic attacks also having some racing thoughts, poor impulse control, low frustration tolerance. The patient's appetite has improved. The patient is complaining of having blackouts, paranoia and fear. He is oriented to surroundings. The patient has some problems with short-term memory. DIAGNOSES: AXIS I: 1. Bipolar disorder, mixed, with a history of psychotic features. 2. 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 AXIS II: None. AXIS III: Parkinson's disease, cellulitis in the past, obesity, obstructive sleep apnea. PLAN: The patient will continue on the current medications including melatonin, olanzapine, Seroquel, Exelon, Zoloft, trazodone, Depakote, and carbidopa/levodopa. The patient wanted to go back on the Xanax 0.5 mg q.8 hours p.r.n. and discontinue diazepam. LENGTH OF STAY: Five days. MORRIS VALDEZ MD DR: CHRIST/nano JOB#: [id number] / [id number]
[2018-05-11] MEDS: QUEtiapine 100 MG TABLET. PO SCH (20:15)
[2018-05-11] MEDS: PRAMIPEXOLE 0.5 MG TABLET. PO SCH (20:15)
[2018-05-11] MEDS: traZODone 150 MG TABLET. PO SCH (20:15)
[2018-05-11] MEDS: MELATONIN 3 MG TABLET PO SCH (20:16)
[2018-05-11] MEDS: CARBIDOPA/LEVODOPA CR 50/200MG TABLET.SA PO SCH (20:16)
[2018-05-11] MEDS: DIVALPROEX SODIUM 250 MG TABLET.DR. PO SCH (20:17)
[2018-05-11] MEDS: ACETAMINOPHEN 325 MG TABLET PO PRN (20:17)
[2018-05-11] MEDS: ALPRAZolam 0.5 MG TABLET PO PRN (20:17)
[2018-05-11] MEDS: BENZOCAINE/MENTHOL LOZNGE 18'S BOX. MM PRN (21:24)
[2018-05-12] MEDS: IPRATROPIUM BROMIDE 0.5 MG/2.5 ML NEBU. NEB SCH ×4 (05:28→19:49)
[2018-05-12 05:41] VITALS: BP 153/81
[2018-05-12] MEDS: FERROUS SULFATE 325 MG TABLET. PO SCH (06:09)
[2018-05-12] MEDS: CARBIDOPA/LEVODOPA 25/100MG TABLET PO SCH ×9 (06:09→22:00)
[2018-05-12] MEDS: LACTOBACILLUS RHAMNOSUS GG 1 CAPSULE. PO SCH ×2 (07:48→19:59)
[2018-05-12] MEDS: MEMANTINE 10 MG TABLET. PO SCH ×2 (07:48→16:53)
[2018-05-12] MEDS: AMOXICILLIN/K CLAV 875/125MG TABLET. PO SCH ×2 (07:48→19:58)
[2018-05-12] MEDS: BENZONATATE 100 MG CAPSULE. PO SCH ×3 (07:48→19:58)
[2018-05-12] MEDS: DOCUSATE SODIUM 100 MG CAPSULE PO SCH ×2 (07:48→19:59)
[2018-05-12] MEDS: SERTRALINE 25 MG TABLET. PO SCH (07:49)
[2018-05-12] MEDS: MAGNESIUM OXIDE 400 MG TABLET PO SCH ×2 (07:49→19:59)
[2018-05-12] MEDS: ASPIRIN ENTERIC COATED 81 MG TABLET.DR. PO SCH (07:49)
[2018-05-12] MEDS: ASCORBIC ACID 500 MG TABLET PO SCH (07:49)
[2018-05-12] MEDS: metFORMIN XR 500 MG TAB.ER.24H PO SCH (07:49)
[2018-05-12] MEDS: MULTIVITAMIN with MINERAL TABLET. PO SCH (07:49)
[2018-05-12] MEDS: LACTULOSE 20 GM/30 ML SOLUTION. PO SCH (07:50)
[2018-05-12] MEDS: PRAVASTATIN 20 MG TABLET. PO SCH (07:50)
[2018-05-12] MEDS: LINACLOTIDE 145 MCG CAPSULE. PO SCH (07:50)
[2018-05-12] MEDS: RIVASTIGMINE 9.5MG PATCH. TD SCH (07:50)
[2018-05-12] MEDS: NYSTATIN TOPICAL POWDER 15GM BOTTLE. TP SCH ×2 (07:50→20:01)
[2018-05-12] MEDS: FLUTICASONE 50MCG/NASAL SPRAY 16GM BOTTLE. NS SCH (07:50)
--- NOTE | 2018-05-12 12:16 | PN ---
DATE: 05/12/2018 SUBJECTIVE: The patient was seen today, met with the staff, chart reviewed. The patient continues to exhibit behavior problems. Apparently, he is on the floor, lying down, not wants to get up. Also, staff has problems lifting him because of his weight. The patient is also resistive to care and also oppositional, continues to make demands. OBSERVATION: VITAL SIGNS: Temperature 97.4, blood pressure 153/81, pulse 74, respirations 22. Slept about 5 hours last night. MEDICATIONS: Reviewed. Currently on Xanax 0.5 mg q.6 hours p.r.n., Zoloft 75 mg daily, trazodone 150 mg at night, Seroquel 200 mg at night. The patient is also on melatonin 3 mg at night. The patient is also on Depakote 1500 mg at night. The patient is also on olanzapine 5 mg q.i.d. p.r.n. LABORATORY DATA: The patient's lab reviewed. The patient is not having any side effects to the medications. DIAGNOSES: 1. Bipolar disorder mixed with psychotic features. 2. Major neurocognitive disorder, most likely Lewy body disease with behavior disturbances. PLAN: To continue with the treatment. The patient continues to have increased anxiety. The patient also claims to have panic attacks. The patient will be observed closely. MORRIS VALDEZ MD DR: CHRIST/nano JOB#: [id number] / [id number]
[2018-05-12] MEDS: BENZOCAINE/MENTHOL LOZNGE 18'S BOX. MM PRN (15:11)
[2018-05-12] MEDS: ACETAMINOPHEN 325 MG TABLET PO PRN (15:11)
[2018-05-12] MEDS: ALPRAZolam 0.5 MG TABLET PO PRN (15:11)
[2018-05-12 16:12] VITALS: BP 145/79
[2018-05-12] MEDS: traZODone 50 MG TABLET. PO SCH (16:54)
[2018-05-12] MEDS: QUEtiapine 100 MG TABLET. PO SCH (19:58)
[2018-05-12] MEDS: PRAMIPEXOLE 0.5 MG TABLET. PO SCH (19:58)
[2018-05-12] MEDS: MELATONIN 3 MG TABLET PO SCH (19:58)
[2018-05-12] MEDS: traZODone 150 MG TABLET. PO SCH (19:58)
[2018-05-12] MEDS: CARBIDOPA/LEVODOPA CR 50/200MG TABLET.SA PO SCH (19:59)
[2018-05-12] MEDS: DIVALPROEX SODIUM 250 MG TABLET.DR. PO SCH (19:59)
[2018-05-13] MEDS: IPRATROPIUM BROMIDE 0.5 MG/2.5 ML NEBU. NEB SCH ×4 (04:59→20:19)
[2018-05-13] MEDS: CARBIDOPA/LEVODOPA 25/100MG TABLET PO SCH ×9 (05:41→22:00)
[2018-05-13] MEDS: FERROUS SULFATE 325 MG TABLET. PO SCH (05:41)
[2018-05-13 05:45] VITALS: BP 162/95
[2018-05-13] MEDS: AMOXICILLIN/K CLAV 875/125MG TABLET. PO SCH ×2 (07:28→19:38)
[2018-05-13] MEDS: DOCUSATE SODIUM 100 MG CAPSULE PO SCH ×2 (07:28→19:38)
[2018-05-13] MEDS: MAGNESIUM OXIDE 400 MG TABLET PO SCH ×2 (07:29→19:38)
[2018-05-13] MEDS: PRAVASTATIN 20 MG TABLET. PO SCH (07:29)
[2018-05-13] MEDS: metFORMIN XR 500 MG TAB.ER.24H PO SCH (07:29)
[2018-05-13] MEDS: MEMANTINE 10 MG TABLET. PO SCH ×2 (07:30→17:16)
[2018-05-13] MEDS: LACTOBACILLUS RHAMNOSUS GG 1 CAPSULE. PO SCH ×2 (07:30→19:38)
[2018-05-13] MEDS: FLUTICASONE 50MCG/NASAL SPRAY 16GM BOTTLE. NS SCH (07:30)
[2018-05-13] MEDS: ASPIRIN ENTERIC COATED 81 MG TABLET.DR. PO SCH (07:30)
[2018-05-13] MEDS: SERTRALINE 25 MG TABLET. PO SCH (07:30)
[2018-05-13] MEDS: BENZONATATE 100 MG CAPSULE. PO SCH ×3 (07:30→19:38)
[2018-05-13] MEDS: MULTIVITAMIN with MINERAL TABLET. PO SCH (07:30)
[2018-05-13] MEDS: ASCORBIC ACID 500 MG TABLET PO SCH (07:30)
[2018-05-13] MEDS: LACTULOSE 20 GM/30 ML SOLUTION. PO SCH (07:30)
[2018-05-13] MEDS: RIVASTIGMINE 9.5MG PATCH. TD SCH (07:32)
[2018-05-13] MEDS: LINACLOTIDE 145 MCG CAPSULE. PO SCH (07:32)
[2018-05-13] MEDS: NYSTATIN TOPICAL POWDER 15GM BOTTLE. TP SCH ×2 (07:35→19:39)
--- NOTE | 2018-05-13 09:52 | DS ---
DATE OF DISCHARGE: 05/11/2018 ADDENDUM The patient was transferred from [facility] to [address] [place] [address] for treatment of healthcare-associated pneumonia, was treated with IV vancomycin and Zosyn, did very well. Unfortunately, while there, he fell sustaining another laceration of the left forehead that required suturing. Has developed bilateral raccoon eyes. He has also swelling and ecchymosis on his left ankle joint. We did x-rays that showed no evidence of fracture. As he remained hemodynamically stable, his cultures were negative, I switched him to Augmentin and was transferred to [facility] for inpatient psychiatric stabilization. JOHN MOY MD DR: DEB/nano JOB#: [id number] / [id number]
[2018-05-13] MEDS: ALPRAZolam 0.5 MG TABLET PO PRN (10:54)
--- NOTE | 2018-05-13 16:02 | RAD ---
Left ankle, 2 views, 05/13/2018: HISTORY: Swelling and bruising There is moderate cortical irregularity along the distal margin of the medial malleolus compatible with old trauma. There is spurring at the tibiotalar articulation. No acute ankle fracture or dislocation is identified. There is moderate overlying soft tissue swelling. Left foot, 2 views, 05/13/2018: There is moderate degenerative change at the first MTP joint and at several mid foot articulations. No acute fracture or destructive bony lesion is seen. There is moderate diffuse soft tissue swelling IMPRESSION: 1. Moderate scattered degenerative changes. 2. No acute bony abnormality is detected. Electronically signed by: Russell Go MD (05/13/2018 3:58 PM) [facility]
[2018-05-13 16:05] VITALS: BP 164/73
[2018-05-13] MEDS: IBUPROFEN 600 MG TABLET. PO PRN (16:19)
[2018-05-13] MEDS: traZODone 50 MG TABLET. PO SCH (17:16)
--- NOTE | 2018-05-13 18:57 | PDOC ---
Exam Note: Сергей Note: Please also refer to the separate dictated note~for this date of service dictated separately.~Patient seen individually. Discussed the patient with Nursing staff reviewed the chart.~Reviewed interim history and current functioning. Reviewed vital signs,~Labs/ Radiology~and current medications noted below. Continue current treatment with the changes noted in the dictated addendum note Assessment: Vital Signs: Vital Signs Date Time Temp Pulse Resp B/P (MAP) Pulse Ox O2 Delivery O2 Flow Rate FiO2 05/13/18 16:05 98.8 65 18 164/73 (103) 91 05/13/18 05:00 Room Air I&O Intake and Output 05/13/18 07:00 Intake Total 1080 ml Balance 1080 ml Intake Oral 1080 ml # Bowel Movements 1 Current Medications: Meds: Current Medications Acetaminophen (Tylenol) 650 mg PRN Q6HRS PRN PO PAIN / TEMP Last administered on 05/12/18at 15:11; Start 05/10/18 at 17:45 Albuterol Sulfate (Ventolin) 2.5 mg PRN Q4HRS PRN NEB COUGH; Start 05/10/18 at 17:45 Ascorbic Acid (Vitamin C) 500 mg DAILY PO Last administered on 05/13/18at 07:30 ; Start 05/11/18 at 09:00 Throat Lozenges (Cepacol Sore Throat Lozenge) 1 osito PRN Q2HR PRN MM COUGH Last administered on 05/12/18at 15:11; Start 05/10/18 at 17:45 Carbidopa/Levodopa (Sinemet 25/100) 0.5 tab Q2HR W/A PO Last administered on 05/13/18at 17:16; Start 05/10/18 at 18:00 Vitamin D (Vitamin D3) 50,000 unit WEEKLY PO ; Start 05/17/18 at 09:00 Diclofenac Sodium (Voltaren) 1 juan PRN TID PRN TP MUSCLE PAIN; Start 05/10/18 at 17:45 Ferrous Sulfate (Feosol) 650 mg DAILY06 PO Last administered on 05/13/18at 05: 41; Start 05/11/18 at 06:00 Guaifenesin (Mucinex Er) 600 mg BID PO Last administered on 05/13/18at 07:29; Start 05/10/18 at 21:00 Ibuprofen (Motrin) 600 mg PRN BID PRN PO INFLAMMATION PAIN Last administered on 05/13/18 16:19; Start 05/10/18 at 17:45 Ipratropium [place] (Atrovent) 0.5 mg RTQID NEB Last administered on 04:59; Start 05/10/18 at 20:00 Linaclotide (Linzess) 145 mcg DAILY PO Last administered on 05/13/18 07:32; Start 05/11/18 at 09:00 Al Hydroxide/Mg Hydroxide (Mylanta Plus Xs) 15 ml PRN AFTMEALHC PRN PO DYSPEPSIA; Start 05/10/18 at 17:45 Multi-Ingredient Ointment (Analgesic [place]) 1 juan QID PRN TP MUSCLE PAIN; Start 05/10/18 at 17:45 Nystatin (Nystop) 1 juan BID TP Last administered on 05/13/18 07:35; Start at 21:00 Olanzapine (ZyPREXA ZYDIS) 5 mg PRN Q2HR PRN PO ANXIETY / AGITATION; Start at 17:45 Amoxicillin/ Clavulanate Potassium (Augmentin 875/ 125mg) 1 tab BID PO Last administered on 05/13/18 07:28; Start 05/10/18 at 21:00 Aspirin (Aspirin Enteric Coated) 81 mg DAILYWBKFT PO Last administered on 05/13 07:30; Start 05/11/18 at 08:00 Benzonatate (Tessalon Perle) 100 mg [id number] PO Last administered on 05/13/18 13:57; Start 05/10/18 at 21:00 Carbidopa/Levodopa (Sinemet Cr) 1 tab.sa QHS PO Last administered on 19:59; Start 05/10/18 at 21:00 Diazepam (Valium) 2 mg PRN Q6HRS PRN PO ANXIETY / AGITATION Last administered on 05/11/18 08:41; Start 05/10/18 at 18:00; Stop 05/11/18 at 18:16; Status DC Divalproex Sodium (Depakote) 1,500 mg QHS PO Last administered on 05/12/18 19 :59; Start 05/10/18 at 21:00 Docusate Sodium (Colace) 100 mg BID PO Last administered on 05/13/18 07:28; Start 05/10/18 at 21:00 Fluticasone Propionate (Flonase) 2 spray DAILY NS Last administered on 07:30; Start 05/11/18 at 09:00 Hydrocortisone (Cortaid) 1 juan PRN BID PRN TP RASH; Start 05/10/18 at 19:15 Lactobacillus Rhamnosus (Culturelle) 1 cap BID PO Last administered on 07:30; Start 05/10/18 at 21:00 Lactulose (Lactulose) 15 gm DAILYWBKFT PO Last administered on 05/13/18 07:30 ; Start 05/11/18 at 08:00 Magnesium Hydroxide (Milk Of Magnesia) 2,400 mg PRN QHS PRN PO CONSTIPATION; Start 05/10/18 at 18:30 Magnesium Oxide (Magnesium Oxide) 400 mg BID PO Last administered on 07:29; Start 05/10/18 at 21:00 Melatonin 3 mg QHS PO Last administered on 05/12/18 19:58; Start 05/10/18 at 21:00 Memantine (Namenda) 10 mg BIDWMEALS PO Last administered on 05/13/18 17:16; Start 05/10/18 at 18:30 Metformin HCl (Glucophage Xr) 1,000 mg DAILYWBKFT PO Last administered on 05/13 07:29; Start 05/11/18 at 08:00 Miconazole Nitrate (Monistat-Derm) 1 juan PRN BID PRN TP RASH; Start 05/10/18 at 21:00 Multivitamins/ Calcium (Thera-M Plus) 1 tab DAILY PO Last administered on 05/13 07:30; Start 05/11/18 at 09:00 Pramipexole Dihydrochloride (miraPEX) 0.5 mg QHS PO Last administered on 19:58; Start 05/10/18 at 21:00 Pravastatin Sodium (Pravachol) 40 mg DAILY PO Last administered on 05/13/18 07:29; Start 05/11/18 at 09:00 Quetiapine Fumarate (SEROquel) 200 mg QHS PO Last administered on 05/12/18 19 :58; Start 05/10/18 at 21:00 Rivastigmine (Exelon) 1 patch DAILY TD Last administered on 05/13/18at 07:32; Start 05/11/18 at 09:00 Sertraline HCl (Zoloft) 75 mg DAILY PO Last administered on 05/13/18at 07:30; Start 05/11/18 at 09:00 Trazodone HCl (Desyrel) 25 mg DAILYWSUP PO Last administered on 05/13/18at 17: 16; Start 05/10/18 at 18:30 Trazodone HCl (Desyrel) 100 mg PRN QHS PRN PO INSOMNIA; Start 05/10/18 at 18: 00 Trazodone HCl (Desyrel) 150 mg QHS PO Last administered on 05/12/18at 19:58; Start 05/10/18 at 21:00 Acetaminophen (Tylenol) 650 mg PRN Q6HRS PRN PO PAIN / TEMP; Start 05/10/18 at 18:15; Status UNV Multi-Ingredient Ointment (Analgesic [place]) 1 juan PRN QID PRN TP MUSCLE PAIN; Start 05/10/18 at 18:15; Status UNV Al Hydroxide/Mg Hydroxide (Mylanta Plus Xs) 15 ml PRN AFTMEALHC PRN PO DYSPEPSIA; Start 05/10/18 at 18:15; Status UNV Magnesium Hydroxide (Milk Of Magnesia) 2,400 mg PRN QHS PRN PO CONSTIPATION; Start 05/10/18 at 18:15; Status UNV Alprazolam (Xanax) 0.5 mg PRN Q6HRS PRN PO ANXIETY / AGITATION Last administered on 05/13/18at 10:54; Start 05/11/18 at 18:15 Active Scripts Active Reported Neomycin Sulfate 500 Mg Tablet 1 Juan PO DAILY Augmentin 875-125 Tablet (Amoxicillin/Potassium Clav) 1 Each Tablet 1 Each PO BID 5 Days Albuterol Sulfate Neb Soln (Albuterol Sulfate) 2.5 Mg/3 Ml Vial.neb 2.5 Mg PRN Q4HRS PRN EXELON 9.5mg/24hr (Rivastigmine) 1 Each Patch.td24 1 Patch TD DAILY Trazodone Hcl 150 Mg Tablet 150 Mg PO HS Trazodone Hcl 100 Mg Tablet 100 Mg PO PRN QHS PRN Guaifenesin 600 Mg Tablet.er 600 Mg PO BID Zoloft (Sertraline Hcl) 25 Mg Tablet 75 Mg PO DAILY Seroquel (Quetiapine Fumarate) 200 Mg Tablet 200 Mg PO HS Ipratropium [place] 0.2 Mg/1 Ml Solution 1 Vial NEB QID Benzonatate 100 Mg Capsule 100 Mg PO TID Cepacol Sore Throat Lozenge (Benzocaine/Menthol) 1 Each Lozenge 1 Each MM PRN Q2HR PRN Mag-Al Plus Xs Suspension (Mag Hydrox/Al Hydrox/Simeth) 30 Ml Oral.susp 15 Ml PO PRN AFTMEALHC PRN Lactulose 10 Gm/15 Ml Solution 15 Gm PO DAILYWBKFT Zyprexa Zydis (Olanzapine) 5 Mg Tab.rapdis 5 Mg PO PRN Q2HR PRN Analgesic [place] (Methyl Salicylate/Menthol) 28 Gm Oint...g. 1 Juan TP QID PRN Namenda (Memantine Hcl) 10 Mg Tablet 1 Tab PO BIDWMEALS Melatonin 3 Mg Tablet 1 Tab PO QHS Culturelle (Lactobacillus Rhamnosus Gg) 1 Each Capsule 1 Each PO BID Glucophage Xr (Metformin Hcl) 500 Mg Tab.er.24h 2 Tab PO DAILYWBKFT Nystatin 15 Gm Powder 1 Juan TP BID Milk Of Magnesia (Magnesium Hydroxide) 2,400 Mg/10 Ml Oral.susp 2,400 Mg PO HS PRN Voltaren (Diclofenac Sodium) 100 Gm Gel..gram. 1 Juan TP PRN TID PRN FOR NECK PAIN Vitamin D3 (Cholecalciferol (Vitamin D3)) 50,000 Unit Capsule 50,000 Unit PO WEEKLY Tylenol (Acetaminophen) 325 Mg Tablet 2 Tab PO PRN Q6HRS PRN Pravastatin Sodium 40 Mg Tablet 40 Mg PO DAILY Carbidopa-Levo Er 50-200 Tab (Carbidopa/Levodopa) 1 Each Tablet.er 1 Each PO HS Sinemet 25-100 Mg Tablet (Carbidopa/Levodopa) 1 Each Tablet 0.5 Tab PO Q2HR W/A Diazepam 2 Mg Tablet 2 Mg PO PRN Q6HRS PRN Mirapex (Pramipexole Di-Hcl) 0.25 Mg Tablet 0.5 Mg PO HS Linzess (Linaclotide) 145 Mcg Capsule 145 Mcg PO DAILY Divalproex Sodium 500 Mg Tablet. 1,500 Mg PO HS Hydrocortisone 453.6 Gm Cream..g. 1 Juan TP PRN BID PRN Ferrous Sulfate 325 Mg Tablet 650 Mg PO DAILY06 Magnesium Oxide 400 Mg Tablet 400 Mg PO BID Miconazole Nitrate 45 Gm Cream.appl 1 Juan TP PRN BID PRN Aspirin 81 Mg Tab.chew 81 Mg PO DAILY Ibuprofen 400 Mg Tablet 600 Mg PO PRN BID PRN Docusate Sodium 100 Mg Capsule 100 Mg PO BID Fluticasone Propionate Nasal [place] (Fluticasone Propionate) 16 Gm [place].susp 2 [place] NS DAILY Multivitamins (Multivitamin) 1 Each Tablet 1 Tab PO DAILY Trazodone Hcl 50 Mg Tablet 25 Mg PO DAILYWSUP Ascorbic Acid 500 Mg Tablet 500 Mg PO DAILY I have reviewed the current psychotropics carefully including drug interactions. Risk benefit ratio favors no change other than as noted in my dictated progress note. Diagnosis: Problems: (1) Acute respiratory failure with hypoxia (2) Healthcare-associated pneumonia (3) Acute and chronic respiratory failure with hypoxia (4) Anxiety disorder (5) Lewy body dementia with behavioral disturbance (6) Impulse control disorder (7) Personality disorder in adult SAY PRUETT MD May 13, 2018 18:57
[2018-05-13] MEDS: PRAMIPEXOLE 0.5 MG TABLET. PO SCH (19:38)
[2018-05-13] MEDS: CARBIDOPA/LEVODOPA CR 50/200MG TABLET.SA PO SCH (19:38)
[2018-05-13] MEDS: QUEtiapine 100 MG TABLET. PO SCH (19:38)
[2018-05-13] MEDS: MELATONIN 3 MG TABLET PO SCH (19:38)
[2018-05-13] MEDS: traZODone 150 MG TABLET. PO SCH (19:38)
[2018-05-13] MEDS: DIVALPROEX SODIUM 250 MG TABLET.DR. PO SCH (19:39)
[2018-05-13] MEDS: traZODone 100 MG TABLET. PO PRN (23:10)
[2018-05-14] MEDS: FERROUS SULFATE 325 MG TABLET. PO SCH (05:26)
[2018-05-14] MEDS: CARBIDOPA/LEVODOPA 25/100MG TABLET PO SCH ×9 (05:26→22:00)
[2018-05-14] MEDS: IPRATROPIUM BROMIDE 0.5 MG/2.5 ML NEBU. NEB SCH ×4 (05:26→20:44)
[2018-05-14 05:48] VITALS: BP 174/81
[2018-05-14] MEDS: MULTIVITAMIN with MINERAL TABLET. PO SCH (08:01)
[2018-05-14] MEDS: LACTOBACILLUS RHAMNOSUS GG 1 CAPSULE. PO SCH ×2 (08:01→20:32)
[2018-05-14] MEDS: AMOXICILLIN/K CLAV 875/125MG TABLET. PO SCH ×2 (08:02→20:31)
[2018-05-14] MEDS: SERTRALINE 25 MG TABLET. PO SCH (08:02)
[2018-05-14] MEDS: MAGNESIUM OXIDE 400 MG TABLET PO SCH ×2 (08:02→20:31)
[2018-05-14] MEDS: BENZONATATE 100 MG CAPSULE. PO SCH ×3 (08:02→20:32)
[2018-05-14] MEDS: DOCUSATE SODIUM 100 MG CAPSULE PO SCH ×2 (08:02→20:32)
[2018-05-14] MEDS: ASCORBIC ACID 500 MG TABLET PO SCH (08:02)
[2018-05-14] MEDS: LACTULOSE 20 GM/30 ML SOLUTION. PO SCH (08:03)
[2018-05-14] MEDS: MEMANTINE 10 MG TABLET. PO SCH ×2 (08:03→16:03)
[2018-05-14] MEDS: PRAVASTATIN 20 MG TABLET. PO SCH (08:03)
[2018-05-14] MEDS: RIVASTIGMINE 9.5MG PATCH. TD SCH (08:03)
[2018-05-14] MEDS: ASPIRIN ENTERIC COATED 81 MG TABLET.DR. PO SCH (08:03)
[2018-05-14] MEDS: NYSTATIN TOPICAL POWDER 15GM BOTTLE. TP SCH ×2 (08:04→21:00)
[2018-05-14] MEDS: FLUTICASONE 50MCG/NASAL SPRAY 16GM BOTTLE. NS SCH (08:04)
[2018-05-14] MEDS: metFORMIN XR 500 MG TAB.ER.24H PO SCH (08:05)
[2018-05-14] MEDS: LINACLOTIDE 145 MCG CAPSULE. PO SCH (08:05)
[2018-05-14 15:40] VITALS: BP 142/74
[2018-05-14] MEDS: traZODone 50 MG TABLET. PO SCH (16:03)
[2018-05-14] MEDS: ALPRAZolam 0.5 MG TABLET PO PRN (17:55)
--- NOTE | 2018-05-14 18:54 | PDOC ---
Exam Note: Сергей Note: Please also refer to the separate dictated note~for this date of service dictated separately.~Patient seen individually. Discussed the patient with Nursing staff reviewed the chart.~Reviewed interim history and current functioning. Reviewed vital signs,~Labs/ Radiology~and current medications noted below. Continue current treatment with the changes noted in the dictated addendum note Assessment: Vital Signs: Vital Signs Date Time Temp Pulse Resp B/P (MAP) Pulse Ox O2 Delivery O2 Flow Rate FiO2 05/14/18 16:30 97 Room Air 05/14/18 15:40 98.2 69 20 142/74 (96) I&O Intake and Output 05/14/18 07:00 Intake Total 840 ml Balance 840 ml Intake Oral 840 ml Current Medications: Meds: Current Medications Acetaminophen (Tylenol) 650 mg PRN Q6HRS PRN PO PAIN / TEMP Last administered on 05/12/18at 15:11; Start 05/10/18 at 17:45 Albuterol Sulfate (Ventolin) 2.5 mg PRN Q4HRS PRN NEB COUGH; Start 05/10/18 at 17:45 Ascorbic Acid (Vitamin C) 500 mg DAILY PO Last administered on 05/14/18at 08:02 ; Start 05/11/18 at 09:00 Throat Lozenges (Cepacol Sore Throat Lozenge) 1 osito PRN Q2HR PRN MM COUGH Last administered on 05/12/18at 15:11; Start 05/10/18 at 17:45 Carbidopa/Levodopa (Sinemet 25/100) 0.5 tab Q2HR W/A PO Last administered on 05/14/18at 17:00; Start 05/10/18 at 18:00 Vitamin D (Vitamin D3) 50,000 unit WEEKLY PO ; Start 05/17/18 at 09:00 Diclofenac Sodium (Voltaren) 1 juan PRN TID PRN TP MUSCLE PAIN; Start 05/10/18 at 17:45 Ferrous Sulfate (Feosol) 650 mg DAILY06 PO Last administered on 05/14/18at 05: 26; Start 05/11/18 at 06:00 Guaifenesin (Mucinex Er) 600 mg BID PO Last administered on 05/14/18at 08:03; Start 05/10/18 at 21:00 Ibuprofen (Motrin) 600 mg PRN BID PRN PO INFLAMMATION PAIN Last administered on 05/13/18 16:19; Start 05/10/18 at 17:45 Ipratropium [place] (Atrovent) 0.5 mg RTQID NEB Last administered on 16:28; Start 05/10/18 at 20:00 Linaclotide (Linzess) 145 mcg DAILY PO Last administered on 05/14/18 08:05; Start 05/11/18 at 09:00 Al Hydroxide/Mg Hydroxide (Mylanta Plus Xs) 15 ml PRN AFTMEALHC PRN PO DYSPEPSIA; Start 05/10/18 at 17:45 Multi-Ingredient Ointment (Analgesic [place]) 1 juan QID PRN TP MUSCLE PAIN; Start 05/10/18 at 17:45 Nystatin (Nystop) 1 juan BID TP Last administered on 05/14/18 08:04; Start at 21:00 Olanzapine (ZyPREXA ZYDIS) 5 mg PRN Q2HR PRN PO ANXIETY / AGITATION Last administered on 05/13/18 23:10; Start 05/10/18 at 17:45 Amoxicillin/ Clavulanate Potassium (Augmentin 875/ 125mg) 1 tab BID PO Last administered on 05/14/18 08:02; Start 05/10/18 at 21:00 Aspirin (Aspirin Enteric Coated) 81 mg DAILYWBKFT PO Last administered on 05/14 08:03; Start 05/11/18 at 08:00 Benzonatate (Tessalon Perle) 100 mg [id number] PO Last administered on 05/14/18 14:15; Start 05/10/18 at 21:00 Carbidopa/Levodopa (Sinemet Cr) 1 tab.sa QHS PO Last administered on 19:38; Start 05/10/18 at 21:00 Diazepam (Valium) 2 mg PRN Q6HRS PRN PO ANXIETY / AGITATION Last administered on 05/11/18 08:41; Start 05/10/18 at 18:00; Stop 05/11/18 at 18:16; Status DC Divalproex Sodium (Depakote) 1,500 mg QHS PO Last administered on 05/13/18 19 :39; Start 05/10/18 at 21:00 Docusate Sodium (Colace) 100 mg BID PO Last administered on 05/14/18 08:02; Start 05/10/18 at 21:00 Fluticasone Propionate (Flonase) 2 spray DAILY NS Last administered on 08:04; Start 05/11/18 at 09:00 Hydrocortisone (Cortaid) 1 juan PRN BID PRN TP RASH; Start 05/10/18 at 19:15 Lactobacillus Rhamnosus (Culturelle) 1 cap BID PO Last administered on 08:01; Start 05/10/18 at 21:00 Lactulose (Lactulose) 15 gm DAILYWBKFT PO Last administered on 05/14/18 08:03 ; Start 05/11/18 at 08:00 Magnesium Hydroxide (Milk Of Magnesia) 2,400 mg PRN QHS PRN PO CONSTIPATION; Start 05/10/18 at 18:30 Magnesium Oxide (Magnesium Oxide) 400 mg BID PO Last administered on 08:02; Start 05/10/18 at 21:00 Melatonin 3 mg QHS PO Last administered on 05/13/18 19:38; Start 05/10/18 at 21:00 Memantine (Namenda) 10 mg BIDWMEALS PO Last administered on 05/14/18 16:03; Start 05/10/18 at 18:30 Metformin HCl (Glucophage Xr) 1,000 mg DAILYWBKFT PO Last administered on 05/14at 08:05; Start 05/11/18 at 08:00 Miconazole Nitrate (Monistat-Derm) 1 juan PRN BID PRN TP RASH; Start 05/10/18 at 21:00 Multivitamins/ Calcium (Thera-M Plus) 1 tab DAILY PO Last administered on 05/14 08:01; Start 05/11/18 at 09:00 Pramipexole Dihydrochloride (miraPEX) 0.5 mg QHS PO Last administered on 19:38; Start 05/10/18 at 21:00 Pravastatin Sodium (Pravachol) 40 mg DAILY PO Last administered on 05/14/18 08:03; Start 05/11/18 at 09:00 Quetiapine Fumarate (SEROquel) 200 mg QHS PO Last administered on 05/13/18 19 :38; Start 05/10/18 at 21:00 Rivastigmine (Exelon) 1 patch DAILY TD Last administered on 05/14/18 08:03; Start 05/11/18 at 09:00 Sertraline HCl (Zoloft) 75 mg DAILY PO Last administered on 05/14/18 08:02; Start 05/11/18 at 09:00 Trazodone HCl (Desyrel) 25 mg DAILYWSUP PO Last administered on 05/14/18 16: 03; Start 05/10/18 at 18:30 Trazodone HCl (Desyrel) 100 mg PRN QHS PRN PO INSOMNIA Last administered on 23:10; Start 05/10/18 at 18:00 Trazodone HCl (Desyrel) 150 mg QHS PO Last administered on 05/13/18 19:38; Start 05/10/18 at 21:00 Acetaminophen (Tylenol) 650 mg PRN Q6HRS PRN PO PAIN / TEMP; Start 05/10/18 at 18:15; Status UNV Multi-Ingredient Ointment (Analgesic [place]) 1 juan PRN QID PRN TP MUSCLE PAIN; Start 05/10/18 at 18:15; Status UNV Al Hydroxide/Mg Hydroxide (Mylanta Plus Xs) 15 ml PRN AFTMEALHC PRN PO DYSPEPSIA; Start 05/10/18 at 18:15; Status UNV Magnesium Hydroxide (Milk Of Magnesia) 2,400 mg PRN QHS PRN PO CONSTIPATION; Start 05/10/18 at 18:15; Status UNV Alprazolam (Xanax) 0.5 mg PRN Q6HRS PRN PO ANXIETY / AGITATION Last administered on 05/14/18at 17:55; Start 05/11/18 at 18:15 Active Scripts Active Reported Neomycin Sulfate 500 Mg Tablet 1 Juan PO DAILY Augmentin 875-125 Tablet (Amoxicillin/Potassium Clav) 1 Each Tablet 1 Each PO BID 5 Days Albuterol Sulfate Neb Soln (Albuterol Sulfate) 2.5 Mg/3 Ml Vial.neb 2.5 Mg PRN Q4HRS PRN EXELON 9.5mg/24hr (Rivastigmine) 1 Each Patch.td24 1 Patch TD DAILY Trazodone Hcl 150 Mg Tablet 150 Mg PO HS Trazodone Hcl 100 Mg Tablet 100 Mg PO PRN QHS PRN Guaifenesin 600 Mg Tablet.er 600 Mg PO BID Zoloft (Sertraline Hcl) 25 Mg Tablet 75 Mg PO DAILY Seroquel (Quetiapine Fumarate) 200 Mg Tablet 200 Mg PO HS Ipratropium [place] 0.2 Mg/1 Ml Solution 1 Vial NEB QID Benzonatate 100 Mg Capsule 100 Mg PO TID Cepacol Sore Throat Lozenge (Benzocaine/Menthol) 1 Each Lozenge 1 Each MM PRN Q2HR PRN Mag-Al Plus Xs Suspension (Mag Hydrox/Al Hydrox/Simeth) 30 Ml Oral.susp 15 Ml PO PRN AFTMEALHC PRN Lactulose 10 Gm/15 Ml Solution 15 Gm PO DAILYWBKFT Zyprexa Zydis (Olanzapine) 5 Mg Tab.rapdis 5 Mg PO PRN Q2HR PRN Analgesic [place] (Methyl Salicylate/Menthol) 28 Gm Oint...g. 1 Juan TP QID PRN Namenda (Memantine Hcl) 10 Mg Tablet 1 Tab PO BIDWMEALS Melatonin 3 Mg Tablet 1 Tab PO QHS Culturelle (Lactobacillus Rhamnosus Gg) 1 Each Capsule 1 Each PO BID Glucophage Xr (Metformin Hcl) 500 Mg Tab.er.24h 2 Tab PO DAILYWBKFT Nystatin 15 Gm Powder 1 Juan TP BID Milk Of Magnesia (Magnesium Hydroxide) 2,400 Mg/10 Ml Oral.susp 2,400 Mg PO HS PRN Voltaren (Diclofenac Sodium) 100 Gm Gel..gram. 1 Juan TP PRN TID PRN FOR NECK PAIN Vitamin D3 (Cholecalciferol (Vitamin D3)) 50,000 Unit Capsule 50,000 Unit PO WEEKLY Tylenol (Acetaminophen) 325 Mg Tablet 2 Tab PO PRN Q6HRS PRN Pravastatin Sodium 40 Mg Tablet 40 Mg PO DAILY Carbidopa-Levo Er 50-200 Tab (Carbidopa/Levodopa) 1 Each Tablet.er 1 Each PO HS Sinemet 25-100 Mg Tablet (Carbidopa/Levodopa) 1 Each Tablet 0.5 Tab PO Q2HR W/A Diazepam 2 Mg Tablet 2 Mg PO PRN Q6HRS PRN Mirapex (Pramipexole Di-Hcl) 0.25 Mg Tablet 0.5 Mg PO HS Linzess (Linaclotide) 145 Mcg Capsule 145 Mcg PO DAILY Divalproex Sodium 500 Mg Tablet.dr 1,500 Mg PO HS Hydrocortisone 453.6 Gm Cream..g. 1 Juan TP PRN BID PRN Ferrous Sulfate 325 Mg Tablet 650 Mg PO DAILY06 Magnesium Oxide 400 Mg Tablet 400 Mg PO BID Miconazole Nitrate 45 Gm Cream.appl 1 Juan TP PRN BID PRN Aspirin 81 Mg Tab.chew 81 Mg PO DAILY Ibuprofen 400 Mg Tablet 600 Mg PO PRN BID PRN Docusate Sodium 100 Mg Capsule 100 Mg PO BID Fluticasone Propionate Nasal [place] (Fluticasone Propionate) 16 Gm [place].susp 2 [place] NS DAILY Multivitamins (Multivitamin) 1 Each Tablet 1 Tab PO DAILY Trazodone Hcl 50 Mg Tablet 25 Mg PO DAILYWSUP Ascorbic Acid 500 Mg Tablet 500 Mg PO DAILY I have reviewed the current psychotropics carefully including drug interactions. Risk benefit ratio favors no change other than as noted in my dictated progress note. Diagnosis: Problems: (1) Healthcare-associated pneumonia (2) Acute respiratory failure with hypoxia (3) Acute and chronic respiratory failure with hypoxia (4) Anxiety disorder (5) Lewy body dementia with behavioral disturbance (6) Impulse control disorder (7) Personality disorder in adult SAY PRUETT MD May 14, 2018 18:54
[2018-05-14] MEDS: traZODone 150 MG TABLET. PO SCH (20:31)
[2018-05-14] MEDS: DIVALPROEX SODIUM 250 MG TABLET.DR. PO SCH (20:31)
[2018-05-14] MEDS: CARBIDOPA/LEVODOPA CR 50/200MG TABLET.SA PO SCH (20:32)
[2018-05-14] MEDS: PRAMIPEXOLE 0.5 MG TABLET. PO SCH (20:32)
[2018-05-14] MEDS: QUEtiapine 100 MG TABLET. PO SCH (20:32)
[2018-05-14] MEDS: MELATONIN 3 MG TABLET PO SCH (20:32)
--- NOTE | 2018-05-14 22:40 | PN ---
DATE: 05/13/2018 PSYCHIATRIC PROGRESS NOTE This is a late entry 05/13/2018 covers elements not covered in my initial note. SUBJECTIVE: I met with the patient in the evening and reviewed the patient with Dr. Ruano since Dr. Ruano covered for me on the patient for the past 1 week. The patient slept 5-1/2 hours previous evening. The patient remains quite impulsive. Since over the past 1 week, he threw himself under the wheelchair and has some sutures on his forehead and bruising in periorbital area and under his chin. X-ray ankle showed bruising, swelling, no fracture. Nursing staff plan putting him in a bariatric tilt chair to avoid his attempts to hurt himself by falling off to the ground given his very large size. REVIEW OF SYSTEMS: Ambulation impaired. No CV, , pulmonary, eye, ENT system symptoms on review. MENTAL STATUS EXAM: Oriented to himself and situation. Speech is coherent, rapid at times. Abstraction fair, computation impaired, language function intact. Attention span short. No active suicidal or homicidal ideation. LABORATORY DATA: Reviewed. IMPRESSION: Bipolar 1 disorder, mixed, anxiety disorder, unspecified, Lewy body dementia, early with delusion, behavioral disturbance. PLAN: Continue psychotropics mentioned in my initial note. Depakote 1500 mg at bedtime of the ER. Valproic acid level therapeutic at 51, Exelon patch 9.5 mg a day, Namenda 10 b.i.d., Zoloft 75 mg a day, Zyprexa p.r.n., trazodone 25 mg daily with supper 150 at bedtime and 100 mg at bedtime p.r.n. insomnia. MAN Rosa PRUETT MD DR: MARCEL/nano JOB#: [id number] / [id number]
[2018-05-15] MEDS: FERROUS SULFATE 325 MG TABLET. PO SCH (04:53)
[2018-05-15] MEDS: CARBIDOPA/LEVODOPA 25/100MG TABLET PO SCH ×9 (04:53→22:00)
[2018-05-15] MEDS: IPRATROPIUM BROMIDE 0.5 MG/2.5 ML NEBU. NEB SCH ×4 (05:18→20:26)
[2018-05-15 05:52] VITALS: BP 119/73
[2018-05-15] MEDS: AMOXICILLIN/K CLAV 875/125MG TABLET. PO SCH ×2 (08:01→20:50)
[2018-05-15] MEDS: SERTRALINE 25 MG TABLET. PO SCH (08:01)
[2018-05-15] MEDS: metFORMIN XR 500 MG TAB.ER.24H PO SCH (08:01)
[2018-05-15] MEDS: ASCORBIC ACID 500 MG TABLET PO SCH (08:01)
[2018-05-15] MEDS: PRAVASTATIN 20 MG TABLET. PO SCH (08:01)
[2018-05-15] MEDS: ALPRAZolam 0.5 MG TABLET PO PRN (08:01)
[2018-05-15] MEDS: ASPIRIN ENTERIC COATED 81 MG TABLET.DR. PO SCH (08:02)
[2018-05-15] MEDS: MEMANTINE 10 MG TABLET. PO SCH ×2 (08:02→17:31)
[2018-05-15] MEDS: LACTOBACILLUS RHAMNOSUS GG 1 CAPSULE. PO SCH ×2 (08:02→20:51)
[2018-05-15] MEDS: BENZONATATE 100 MG CAPSULE. PO SCH ×3 (08:02→20:50)
[2018-05-15] MEDS: MAGNESIUM OXIDE 400 MG TABLET PO SCH ×2 (08:02→20:51)
[2018-05-15] MEDS: DOCUSATE SODIUM 100 MG CAPSULE PO SCH ×2 (08:03→20:51)
[2018-05-15] MEDS: RIVASTIGMINE 9.5MG PATCH. TD SCH (08:04)
[2018-05-15] MEDS: LACTULOSE 20 GM/30 ML SOLUTION. PO SCH (08:05)
[2018-05-15] MEDS: FLUTICASONE 50MCG/NASAL SPRAY 16GM BOTTLE. NS SCH (08:05)
[2018-05-15] MEDS: MULTIVITAMIN with MINERAL TABLET. PO SCH (09:00)
[2018-05-15] MEDS: LINACLOTIDE 145 MCG CAPSULE. PO SCH (09:00)
[2018-05-15] MEDS: NYSTATIN TOPICAL POWDER 15GM BOTTLE. TP SCH ×2 (11:27→23:30)
[2018-05-15] MEDS: BENZOCAINE/MENTHOL LOZNGE 18'S BOX. MM PRN (15:05)
[2018-05-15 16:34] VITALS: BP 139/79
[2018-05-15] MEDS: traZODone 50 MG TABLET. PO SCH (17:31)
[2018-05-15] MEDS: MELATONIN 3 MG TABLET PO SCH (20:50)
[2018-05-15] MEDS: PRAMIPEXOLE 0.5 MG TABLET. PO SCH (20:50)
[2018-05-15] MEDS: traZODone 150 MG TABLET. PO SCH (20:50)
[2018-05-15] MEDS: DIVALPROEX SODIUM 250 MG TABLET.DR. PO SCH (20:51)
[2018-05-15] MEDS: CARBIDOPA/LEVODOPA CR 50/200MG TABLET.SA PO SCH (20:51)
[2018-05-15] MEDS: QUEtiapine 100 MG TABLET. PO SCH (20:51)
--- NOTE | 2018-05-15 21:17 | PN ---
DATE: 05/14/2018 PSYCHIATRIC PROGRESS NOTE This late entry 05/14/2018 covers elements not covered in my initial note. SUBJECTIVE: I met with the patient in the evening. The patient slept 3-1/2 hours previous night having some initial intermediate insomnia. He is anxious in the morning, received Xanax at 8:00 a.m. for self-described panic attack. He still gets anxious, restless, constantly moving as a fall risk. Tries to push himself out of the [place] chair. He has, however, not put himself on the ground. REVIEW OF SYSTEMS: No CV, , pulmonary, eye, ENT system symptoms on review. Reliability fair. Ambulation impaired. MENTAL STATUS EXAM: Oriented to himself and situation. Speech is coherent, has some latency. Abstraction fair, computation impaired, language function intact, attention span short. Mood and affect remains somewhat anxious, labile, but improved. LABORATORY DATA: Reviewed. IMPRESSION: Impulse control disorder, bipolar 1 disorder, unspecified Lewy body dementia with delusion, behavioral disturbance. Rest unchanged. PLAN: Continue psychotropics from initial note, but may consider increasing the Exelon patch in due course. Rest unchanged for now. SAY PRUETT MD DR: MARCEL/nano JOB#: [id number] / [id number]
--- NOTE | 2018-05-15 22:52 | PDOC ---
Exam Note: Сергей Note: Please also refer to the separate dictated note~for this date of service dictated separately.~Patient seen individually. Discussed the patient with Nursing staff reviewed the chart.~Reviewed interim history and current functioning. Reviewed vital signs,~Labs/ Radiology~and current medications noted below. Continue current treatment with the changes noted in the dictated addendum note Assessment: Vital Signs: Vital Signs Date Time Temp Pulse Resp B/P (MAP) Pulse Ox O2 Delivery O2 Flow Rate FiO2 05/15/18 20:00 94 Room Air 05/15/18 16:34 98.0 81 18 139/79 (99) I&O Intake and Output 05/15/18 07:00 Intake Total 1800 ml Balance 1800 ml Intake Oral 1800 ml Current Medications: Meds: Current Medications Acetaminophen (Tylenol) 650 mg PRN Q6HRS PRN PO PAIN / TEMP Last administered on 05/12/18at 15:11; Start 05/10/18 at 17:45 Albuterol Sulfate (Ventolin) 2.5 mg PRN Q4HRS PRN NEB COUGH; Start 05/10/18 at 17:45 Ascorbic Acid (Vitamin C) 500 mg DAILY PO Last administered on 05/15/18at 08:01 ; Start 05/11/18 at 09:00 Throat Lozenges (Cepacol Sore Throat Lozenge) 1 osito PRN Q2HR PRN MM COUGH Last administered on 05/15/18at 15:05; Start 05/10/18 at 17:45 Carbidopa/Levodopa (Sinemet 25/100) 0.5 tab Q2HR W/A PO Last administered on 05/15/18at 18:02; Start 05/10/18 at 18:00 Vitamin D (Vitamin D3) 50,000 unit WEEKLY PO ; Start 05/17/18 at 09:00 Diclofenac Sodium (Voltaren) 1 juan PRN TID PRN TP MUSCLE PAIN; Start 05/10/18 at 17:45 Ferrous Sulfate (Feosol) 650 mg DAILY06 PO Last administered on 05/15/18at 04: 53; Start 05/11/18 at 06:00 Guaifenesin (Mucinex Er) 600 mg BID PO Last administered on 05/15/18at 20:51; Start 05/10/18 at 21:00 Ibuprofen (Motrin) 600 mg PRN BID PRN PO INFLAMMATION PAIN Last administered on 05/13/18 16:19; Start 05/10/18 at 17:45 Ipratropium [place] (Atrovent) 0.5 mg RTQID NEB Last administered on 20:26; Start 05/10/18 at 20:00 Linaclotide (Linzess) 145 mcg DAILY PO Last administered on 05/15/18 09:00; Start 05/11/18 at 09:00 Al Hydroxide/Mg Hydroxide (Mylanta Plus Xs) 15 ml PRN AFTMEALHC PRN PO DYSPEPSIA; Start 05/10/18 at 17:45 Multi-Ingredient Ointment (Analgesic [place]) 1 juan QID PRN TP MUSCLE PAIN; Start 05/10/18 at 17:45 Nystatin (Nystop) 1 juan BID TP Last administered on 05/15/18 11:27; Start at 21:00 Olanzapine (ZyPREXA ZYDIS) 5 mg PRN Q2HR PRN PO ANXIETY / AGITATION Last administered on 05/13/18 23:10; Start 05/10/18 at 17:45 Amoxicillin/ Clavulanate Potassium (Augmentin 875/ 125mg) 1 tab BID PO Last administered on 05/15/18 20:50; Start 05/10/18 at 21:00 Aspirin (Aspirin Enteric Coated) 81 mg DAILYWBKFT PO Last administered on 05/15 08:02; Start 05/11/18 at 08:00 Benzonatate (Tessalon Perle) 100 mg [id number] PO Last administered on 05/15/18 20:50; Start 05/10/18 at 21:00 Carbidopa/Levodopa (Sinemet Cr) 1 tab.sa QHS PO Last administered on 20:51; Start 05/10/18 at 21:00 Diazepam (Valium) 2 mg PRN Q6HRS PRN PO ANXIETY / AGITATION Last administered on 05/11/18 08:41; Start 05/10/18 at 18:00; Stop 05/11/18 at 18:16; Status DC Divalproex Sodium (Depakote) 1,500 mg QHS PO Last administered on 05/15/18 20 :51; Start 05/10/18 at 21:00 Docusate Sodium (Colace) 100 mg BID PO Last administered on 05/15/18 20:51; Start 05/10/18 at 21:00 Fluticasone Propionate (Flonase) 2 spray DAILY NS Last administered on 08:05; Start 05/11/18 at 09:00 Hydrocortisone (Cortaid) 1 juan PRN BID PRN TP RASH; Start 05/10/18 at 19:15 Lactobacillus Rhamnosus (Culturelle) 1 cap BID PO Last administered on 20:51; Start 05/10/18 at 21:00 Lactulose (Lactulose) 15 gm DAILYWBKFT PO Last administered on 05/15/18 08:05 ; Start 05/11/18 at 08:00 Magnesium Hydroxide (Milk Of Magnesia) 2,400 mg PRN QHS PRN PO CONSTIPATION; Start 05/10/18 at 18:30 Magnesium Oxide (Magnesium Oxide) 400 mg BID PO Last administered on 20:51; Start 05/10/18 at 21:00 Melatonin 3 mg QHS PO Last administered on 05/15/18 20:50; Start 05/10/18 at 21:00 Memantine (Namenda) 10 mg BIDWMEALS PO Last administered on 05/15/18 17:31; Start 05/10/18 at 18:30 Metformin HCl (Glucophage Xr) 1,000 mg DAILYWBKFT PO Last administered on 05/15 08:01; Start 05/11/18 at 08:00 Miconazole Nitrate (Monistat-Derm) 1 juan PRN BID PRN TP RASH; Start 05/10/18 at 21:00 Multivitamins/ Calcium (Thera-M Plus) 1 tab DAILY PO Last administered on 05/15 09:00; Start 05/11/18 at 09:00 Pramipexole Dihydrochloride (miraPEX) 0.5 mg QHS PO Last administered on 20:50; Start 05/10/18 at 21:00 Pravastatin Sodium (Pravachol) 40 mg DAILY PO Last administered on 05/15/18 08:01; Start 05/11/18 at 09:00 Quetiapine Fumarate (SEROquel) 200 mg QHS PO Last administered on 05/15/18at 20 :51; Start 05/10/18 at 21:00 Rivastigmine (Exelon) 1 patch DAILY TD Last administered on 05/15/18at 08:04; Start 05/11/18 at 09:00; Stop 05/15/18 at 12:34; Status DC Sertraline HCl (Zoloft) 75 mg DAILY PO Last administered on 05/15/18at 08:01; Start 05/11/18 at 09:00 Trazodone HCl (Desyrel) 25 mg DAILYWSUP PO Last administered on 05/15/18at 17: 31; Start 05/10/18 at 18:30 Trazodone HCl (Desyrel) 100 mg PRN QHS PRN PO INSOMNIA Last administered on at 23:10; Start 05/10/18 at 18:00 Trazodone HCl (Desyrel) 150 mg QHS PO Last administered on 05/15/18at 20:50; Start 05/10/18 at 21:00 Acetaminophen (Tylenol) 650 mg PRN Q6HRS PRN PO PAIN / TEMP; Start 05/10/18 at 18:15; Status UNV Multi-Ingredient Ointment (Analgesic [place]) 1 juan PRN QID PRN TP MUSCLE PAIN; Start 05/10/18 at 18:15; Status UNV Al Hydroxide/Mg Hydroxide (Mylanta Plus Xs) 15 ml PRN AFTMEALHC PRN PO DYSPEPSIA; Start 05/10/18 at 18:15; Status UNV Magnesium Hydroxide (Milk Of Magnesia) 2,400 mg PRN QHS PRN PO CONSTIPATION; Start 05/10/18 at 18:15; Status UNV Alprazolam (Xanax) 0.5 mg PRN Q6HRS PRN PO ANXIETY / AGITATION Last administered on 05/15/18at 08:01; Start 05/11/18 at 18:15 Rivastigmine (Exelon 13.3mg) 1 patch DAILY TD ; Start 05/16/18 at 09:00 Active Scripts Active Reported Neomycin Sulfate 500 Mg Tablet 1 Juan PO DAILY Augmentin 875-125 Tablet (Amoxicillin/Potassium Clav) 1 Each Tablet 1 Each PO BID 5 Days Albuterol Sulfate Neb Soln (Albuterol Sulfate) 2.5 Mg/3 Ml Vial.neb 2.5 Mg PRN Q4HRS PRN EXELON 9.5mg/24hr (Rivastigmine) 1 Each Patch.td24 1 Patch TD DAILY Trazodone Hcl 150 Mg Tablet 150 Mg PO HS Trazodone Hcl 100 Mg Tablet 100 Mg PO PRN QHS PRN Guaifenesin 600 Mg Tablet.er 600 Mg PO BID Zoloft (Sertraline Hcl) 25 Mg Tablet 75 Mg PO DAILY Seroquel (Quetiapine Fumarate) 200 Mg Tablet 200 Mg PO HS Ipratropium [place] 0.2 Mg/1 Ml Solution 1 Vial NEB QID Benzonatate 100 Mg Capsule 100 Mg PO TID Cepacol Sore Throat Lozenge (Benzocaine/Menthol) 1 Each Lozenge 1 Each MM PRN Q2HR PRN Mag-Al Plus Xs Suspension (Mag Hydrox/Al Hydrox/Simeth) 30 Ml Oral.susp 15 Ml PO PRN AFTMEALHC PRN Lactulose 10 Gm/15 Ml Solution 15 Gm PO DAILYWBKFT Zyprexa Zydis (Olanzapine) 5 Mg Tab.rapdis 5 Mg PO PRN Q2HR PRN Analgesic [place] (Methyl Salicylate/Menthol) 28 Gm Oint...g. 1 Juan TP QID PRN Namenda (Memantine Hcl) 10 Mg Tablet 1 Tab PO BIDWMEALS Melatonin 3 Mg Tablet 1 Tab PO QHS Culturelle (Lactobacillus Rhamnosus Gg) 1 Each Capsule 1 Each PO BID Glucophage Xr (Metformin Hcl) 500 Mg Tab.er.24h 2 Tab PO DAILYWBKFT Nystatin 15 Gm Powder 1 Juan TP BID Milk Of Magnesia (Magnesium Hydroxide) 2,400 Mg/10 Ml Oral.susp 2,400 Mg PO HS PRN Voltaren (Diclofenac Sodium) 100 Gm Gel..gram. 1 Juan TP PRN TID PRN FOR NECK PAIN Vitamin D3 (Cholecalciferol (Vitamin D3)) 50,000 Unit Capsule 50,000 Unit PO WEEKLY Tylenol (Acetaminophen) 325 Mg Tablet 2 Tab PO PRN Q6HRS PRN Pravastatin Sodium 40 Mg Tablet 40 Mg PO DAILY Carbidopa-Levo Er 50-200 Tab (Carbidopa/Levodopa) 1 Each Tablet.er 1 Each PO HS Sinemet 25-100 Mg Tablet (Carbidopa/Levodopa) 1 Each Tablet 0.5 Tab PO Q2HR W/A Diazepam 2 Mg Tablet 2 Mg PO PRN Q6HRS PRN Mirapex (Pramipexole Di-Hcl) 0.25 Mg Tablet 0.5 Mg PO HS Linzess (Linaclotide) 145 Mcg Capsule 145 Mcg PO DAILY Divalproex Sodium 500 Mg Tablet.dr 1,500 Mg PO HS Hydrocortisone 453.6 Gm Cream..g. 1 Juan TP PRN BID PRN Ferrous Sulfate 325 Mg Tablet 650 Mg PO DAILY06 Magnesium Oxide 400 Mg Tablet 400 Mg PO BID Miconazole Nitrate 45 Gm Cream.appl 1 Juan TP PRN BID PRN Aspirin 81 Mg Tab.chew 81 Mg PO DAILY Ibuprofen 400 Mg Tablet 600 Mg PO PRN BID PRN Docusate Sodium 100 Mg Capsule 100 Mg PO BID Fluticasone Propionate Nasal [place] (Fluticasone Propionate) 16 Gm [place].susp 2 [place] NS DAILY Multivitamins (Multivitamin) 1 Each Tablet 1 Tab PO DAILY Trazodone Hcl 50 Mg Tablet 25 Mg PO DAILYWSUP Ascorbic Acid 500 Mg Tablet 500 Mg PO DAILY I have reviewed the current psychotropics carefully including drug interactions. Risk benefit ratio favors no change other than as noted in my dictated progress note. Diagnosis: Problems: (1) Healthcare-associated pneumonia (2) Acute respiratory failure with hypoxia (3) Acute and chronic respiratory failure with hypoxia (4) Anxiety disorder (5) Lewy body dementia with behavioral disturbance (6) Impulse control disorder (7) Personality disorder in adult SAY PRUETT MD May 15, 2018 22:52
[2018-05-16] MEDS: FERROUS SULFATE 325 MG TABLET. PO SCH (05:22)
[2018-05-16] MEDS: CARBIDOPA/LEVODOPA 25/100MG TABLET PO SCH ×9 (05:22→22:00)
[2018-05-16] MEDS: IPRATROPIUM BROMIDE 0.5 MG/2.5 ML NEBU. NEB SCH ×4 (05:26→20:42)
[2018-05-16 05:32] VITALS: BP 162/83
[2018-05-16] MEDS: LACTULOSE 20 GM/30 ML SOLUTION. PO SCH (07:50)
[2018-05-16] MEDS: BENZONATATE 100 MG CAPSULE. PO SCH ×3 (07:50→19:37)
[2018-05-16] MEDS: SERTRALINE 25 MG TABLET. PO SCH (07:50)
[2018-05-16] MEDS: ASPIRIN ENTERIC COATED 81 MG TABLET.DR. PO SCH (07:50)
[2018-05-16] MEDS: DOCUSATE SODIUM 100 MG CAPSULE PO SCH ×2 (07:50→19:37)
[2018-05-16] MEDS: metFORMIN XR 500 MG TAB.ER.24H PO SCH (07:50)
[2018-05-16] MEDS: AMOXICILLIN/K CLAV 875/125MG TABLET. PO SCH ×2 (07:50→19:43)
[2018-05-16] MEDS: MAGNESIUM OXIDE 400 MG TABLET PO SCH ×2 (07:50→19:37)
[2018-05-16] MEDS: ASCORBIC ACID 500 MG TABLET PO SCH (07:51)
[2018-05-16] MEDS: LACTOBACILLUS RHAMNOSUS GG 1 CAPSULE. PO SCH ×2 (07:51→19:37)
[2018-05-16] MEDS: PRAVASTATIN 20 MG TABLET. PO SCH (07:51)
[2018-05-16] MEDS: MEMANTINE 10 MG TABLET. PO SCH ×2 (07:51→18:16)
[2018-05-16] MEDS: MULTIVITAMIN with MINERAL TABLET. PO SCH (07:51)
[2018-05-16] MEDS: RIVASTIGMINE 13.3MG PATCH. TD SCH (07:58)
[2018-05-16] MEDS: NYSTATIN TOPICAL POWDER 15GM BOTTLE. TP SCH ×2 (07:58→19:48)
[2018-05-16] MEDS: LINACLOTIDE 145 MCG CAPSULE. PO SCH (07:59)
[2018-05-16] MEDS: FLUTICASONE 50MCG/NASAL SPRAY 16GM BOTTLE. NS SCH (07:59)
[2018-05-16 15:47] VITALS: BP 147/90
[2018-05-16] MEDS: traZODone 50 MG TABLET. PO SCH (18:16)
[2018-05-16] MEDS: ALPRAZolam 0.5 MG TABLET PO PRN (18:20)
[2018-05-16] MEDS: DIVALPROEX SODIUM 250 MG TABLET.DR. PO SCH (19:36)
[2018-05-16] MEDS: MELATONIN 3 MG TABLET PO SCH (19:36)
[2018-05-16] MEDS: traZODone 150 MG TABLET. PO SCH (19:36)
[2018-05-16] MEDS: PRAMIPEXOLE 0.5 MG TABLET. PO SCH (19:37)
[2018-05-16] MEDS: QUEtiapine 100 MG TABLET. PO SCH (19:37)
[2018-05-16] MEDS: CARBIDOPA/LEVODOPA CR 50/200MG TABLET.SA PO SCH (19:43)
--- NOTE | 2018-05-16 21:09 | PN ---
DATE: 05/15/2018 PSYCHIATRIC PROGRESS NOTE This late entry 05/15/2018 covers elements not covered in my initial note. SUBJECTIVE: I met with the patient in the evening, staffed with the entire treatment team earlier in the day. The patient slept 3-1/2 hours previous evening, somewhat disturbed in his sleep, received Xanax at 8:00 a.m. due to increased anxiety. He almost made himself fall off the Broda chair, remains significant fall risk, much of it volitional. REVIEW OF SYSTEMS: Some of his movements gave the suggestion of involuntary tic-like movements and we will have a Neurology consult with Dr. Daugherty for clarification. MENTAL STATUS EXAM: Reasonably oriented. Speech is coherent, somewhat rapid at times, often monosyllabic. Abstraction fair, computation impaired, language function intact, attention span short. Mood and affect remain somewhat anxious, labile. LABORATORY DATA: Reviewed. IMPRESSION: Bipolar 1 disorder, mixed anxiety disorder, unspecified dementia, Lewy body early with delusion, depression. PLAN: Increase Exelon patch from 9.5 to 13.3 mg a day. Maintain rest of the psychotropics unchanged. Valproic acid level therapeutic at 51. MAN Rosa PRUETT MD DR: MARCEL/nano JOB#: [id number] / [id number]
--- NOTE | 2018-05-16 22:42 | PDOC ---
Exam Note: Сергей Note: Please also refer to the separate dictated note~for this date of service dictated separately.~Patient seen individually. Discussed the patient with Nursing staff reviewed the chart.~Reviewed interim history and current functioning. Reviewed vital signs,~Labs/ Radiology~and current medications noted below. Continue current treatment with the changes noted in the dictated addendum note Assessment: Vital Signs: Vital Signs Date Time Temp Pulse Resp B/P (MAP) Pulse Ox O2 Delivery O2 Flow Rate FiO2 05/16/18 20:15 95 Room Air 05/16/18 15:47 97.7 69 19 147/90 (109) I&O Intake and Output 05/16/18 07:00 Intake Total 840 ml Balance 840 ml Intake Oral 840 ml # Bowel Movements 1 Current Medications: Meds: Current Medications Acetaminophen (Tylenol) 650 mg PRN Q6HRS PRN PO PAIN / TEMP Last administered on 05/12/18at 15:11; Start 05/10/18 at 17:45 Albuterol Sulfate (Ventolin) 2.5 mg PRN Q4HRS PRN NEB COUGH; Start 05/10/18 at 17:45 Ascorbic Acid (Vitamin C) 500 mg DAILY PO Last administered on 05/16/18at 07:51 ; Start 05/11/18 at 09:00 Throat Lozenges (Cepacol Sore Throat Lozenge) 1 osito PRN Q2HR PRN MM COUGH Last administered on 05/15/18at 15:05; Start 05/10/18 at 17:45 Carbidopa/Levodopa (Sinemet 25/100) 0.5 tab Q2HR W/A PO Last administered on 05/16/18at 19:40; Start 05/10/18 at 18:00 Vitamin D (Vitamin D3) 50,000 unit WEEKLY PO ; Start 05/17/18 at 09:00 Diclofenac Sodium (Voltaren) 1 juan PRN TID PRN TP MUSCLE PAIN; Start 05/10/18 at 17:45 Ferrous Sulfate (Feosol) 650 mg DAILY06 PO Last administered on 05/16/18at 05: 22; Start 05/11/18 at 06:00 Guaifenesin (Mucinex Er) 600 mg BID PO Last administered on 05/16/18at 19:36; Start 05/10/18 at 21:00 Ibuprofen (Motrin) 600 mg PRN BID PRN PO INFLAMMATION PAIN Last administered on 05/13/18 16:19; Start 05/10/18 at 17:45 Ipratropium [place] (Atrovent) 0.5 mg RTQID NEB Last administered on 20:42; Start 05/10/18 at 20:00 Linaclotide (Linzess) 145 mcg DAILY PO Last administered on 05/16/18 07:59; Start 05/11/18 at 09:00 Al Hydroxide/Mg Hydroxide (Mylanta Plus Xs) 15 ml PRN AFTMEALHC PRN PO DYSPEPSIA; Start 05/10/18 at 17:45 Multi-Ingredient Ointment (Analgesic [place]) 1 juan QID PRN TP MUSCLE PAIN; Start 05/10/18 at 17:45 Nystatin (Nystop) 1 juan BID TP Last administered on 05/16/18 19:48; Start at 21:00 Olanzapine (ZyPREXA ZYDIS) 5 mg PRN Q2HR PRN PO ANXIETY / AGITATION Last administered on 05/13/18 23:10; Start 05/10/18 at 17:45 Amoxicillin/ Clavulanate Potassium (Augmentin 875/ 125mg) 1 tab BID PO Last administered on 05/16/18 19:43; Start 05/10/18 at 21:00 Aspirin (Aspirin Enteric Coated) 81 mg DAILYWBKFT PO Last administered on 05/16 07:50; Start 05/11/18 at 08:00 Benzonatate (Tessalon Perle) 100 mg [id number] PO Last administered on 05/16/18 19:37; Start 05/10/18 at 21:00 Carbidopa/Levodopa (Sinemet Cr) 1 tab.sa QHS PO Last administered on 19:43; Start 05/10/18 at 21:00 Diazepam (Valium) 2 mg PRN Q6HRS PRN PO ANXIETY / AGITATION Last administered on 05/11/18 08:41; Start 05/10/18 at 18:00; Stop 05/11/18 at 18:16; Status DC Divalproex Sodium (Depakote) 1,500 mg QHS PO Last administered on 11/29/18at 19 :36; Start 05/10/18 at 21:00 Docusate Sodium (Colace) 100 mg BID PO Last administered on 05/16/18 19:37; Start 05/10/18 at 21:00 Fluticasone Propionate (Flonase) 2 spray DAILY NS Last administered on 07:59; Start 05/11/18 at 09:00 Hydrocortisone (Cortaid) 1 juan PRN BID PRN TP RASH; Start 05/10/18 at 19:15 Lactobacillus Rhamnosus (Culturelle) 1 cap BID PO Last administered on 19:37; Start 05/10/18 at 21:00 Lactulose (Lactulose) 15 gm DAILYWBKFT PO Last administered on 05/16/18 07:50 ; Start 05/11/18 at 08:00 Magnesium Hydroxide (Milk Of Magnesia) 2,400 mg PRN QHS PRN PO CONSTIPATION; Start 05/10/18 at 18:30 Magnesium Oxide (Magnesium Oxide) 400 mg BID PO Last administered on 19:37; Start 05/10/18 at 21:00 Melatonin 3 mg QHS PO Last administered on 05/16/18 19:36; Start 05/10/18 at 21:00 Memantine (Namenda) 10 mg BIDWMEALS PO Last administered on 05/16/18 18:16; Start 05/10/18 at 18:30 Metformin HCl (Glucophage Xr) 1,000 mg DAILYWBKFT PO Last administered on 05/16 07:50; Start 05/11/18 at 08:00 Miconazole Nitrate (Monistat-Derm) 1 juan PRN BID PRN TP RASH; Start 05/10/18 at 21:00 Multivitamins/ Calcium (Thera-M Plus) 1 tab DAILY PO Last administered on 05/16 07:51; Start 05/11/18 at 09:00 Pramipexole Dihydrochloride (miraPEX) 0.5 mg QHS PO Last administered on 19:37; Start 05/10/18 at 21:00 Pravastatin Sodium (Pravachol) 40 mg DAILY PO Last administered on 05/16/18 07:51; Start 05/11/18 at 09:00 Quetiapine Fumarate (SEROquel) 200 mg QHS PO Last administered on 05/16/18at 19 :37; Start 05/10/18 at 21:00 Rivastigmine (Exelon) 1 patch DAILY TD Last administered on 05/15/18 08:04; Start 05/11/18 at 09:00; Stop 05/15/18 at 12:34; Status DC Sertraline HCl (Zoloft) 75 mg DAILY PO Last administered on 05/16/18at 07:50; Start 05/11/18 at 09:00 Trazodone HCl (Desyrel) 25 mg DAILYWSUP PO Last administered on 05/16/18 18: 16; Start 05/10/18 at 18:30 Trazodone HCl (Desyrel) 100 mg PRN QHS PRN PO INSOMNIA Last administered on at 23:10; Start 05/10/18 at 18:00 Trazodone HCl (Desyrel) 150 mg QHS PO Last administered on 05/16/18at 19:36; Start 05/10/18 at 21:00 Acetaminophen (Tylenol) 650 mg PRN Q6HRS PRN PO PAIN / TEMP; Start 05/10/18 at 18:15; Status UNV Multi-Ingredient Ointment (Analgesic [place]) 1 juan PRN QID PRN TP MUSCLE PAIN; Start 05/10/18 at 18:15; Status UNV Al Hydroxide/Mg Hydroxide (Mylanta Plus Xs) 15 ml PRN AFTMEALHC PRN PO DYSPEPSIA; Start 05/10/18 at 18:15; Status UNV Magnesium Hydroxide (Milk Of Magnesia) 2,400 mg PRN QHS PRN PO CONSTIPATION; Start 05/10/18 at 18:15; Status UNV Alprazolam (Xanax) 0.5 mg PRN Q6HRS PRN PO ANXIETY / AGITATION Last administered on 05/16/18at 18:20; Start 05/11/18 at 18:15 Rivastigmine (Exelon 13.3mg) 1 patch DAILY TD Last administered on 05/16/18at 07:58; Start 05/16/18 at 09:00 Active Scripts Active Reported Neomycin Sulfate 500 Mg Tablet 1 Juan PO DAILY Augmentin 875-125 Tablet (Amoxicillin/Potassium Clav) 1 Each Tablet 1 Each PO BID 5 Days Albuterol Sulfate Neb Soln (Albuterol Sulfate) 2.5 Mg/3 Ml Vial.neb 2.5 Mg PRN Q4HRS PRN EXELON 9.5mg/24hr (Rivastigmine) 1 Each Patch.td24 1 Patch TD DAILY Trazodone Hcl 150 Mg Tablet 150 Mg PO HS Trazodone Hcl 100 Mg Tablet 100 Mg PO PRN QHS PRN Guaifenesin 600 Mg Tablet.er 600 Mg PO BID Zoloft (Sertraline Hcl) 25 Mg Tablet 75 Mg PO DAILY Seroquel (Quetiapine Fumarate) 200 Mg Tablet 200 Mg PO HS Ipratropium [place] 0.2 Mg/1 Ml Solution 1 Vial NEB QID Benzonatate 100 Mg Capsule 100 Mg PO TID Cepacol Sore Throat Lozenge (Benzocaine/Menthol) 1 Each Lozenge 1 Each MM PRN Q2HR PRN Mag-Al Plus Xs Suspension (Mag Hydrox/Al Hydrox/Simeth) 30 Ml Oral.susp 15 Ml PO PRN AFTMEALHC PRN Lactulose 10 Gm/15 Ml Solution 15 Gm PO DAILYWBKFT Zyprexa Zydis (Olanzapine) 5 Mg Tab.rapdis 5 Mg PO PRN Q2HR PRN Analgesic [place] (Methyl Salicylate/Menthol) 28 Gm Oint...g. 1 Juan TP QID PRN Namenda (Memantine Hcl) 10 Mg Tablet 1 Tab PO BIDWMEALS Melatonin 3 Mg Tablet 1 Tab PO QHS Culturelle (Lactobacillus Rhamnosus Gg) 1 Each Capsule 1 Each PO BID Glucophage Xr (Metformin Hcl) 500 Mg Tab.er.24h 2 Tab PO DAILYWBKFT Nystatin 15 Gm Powder 1 Juan TP BID Milk Of Magnesia (Magnesium Hydroxide) 2,400 Mg/10 Ml Oral.susp 2,400 Mg PO HS PRN Voltaren (Diclofenac Sodium) 100 Gm Gel..gram. 1 Juan TP PRN TID PRN FOR NECK PAIN Vitamin D3 (Cholecalciferol (Vitamin D3)) 50,000 Unit Capsule 50,000 Unit PO WEEKLY Tylenol (Acetaminophen) 325 Mg Tablet 2 Tab PO PRN Q6HRS PRN Pravastatin Sodium 40 Mg Tablet 40 Mg PO DAILY Carbidopa-Levo Er 50-200 Tab (Carbidopa/Levodopa) 1 Each Tablet.er 1 Each PO HS Sinemet 25-100 Mg Tablet (Carbidopa/Levodopa) 1 Each Tablet 0.5 Tab PO Q2HR W/A Diazepam 2 Mg Tablet 2 Mg PO PRN Q6HRS PRN Mirapex (Pramipexole Di-Hcl) 0.25 Mg Tablet 0.5 Mg PO HS Linzess (Linaclotide) 145 Mcg Capsule 145 Mcg PO DAILY Divalproex Sodium 500 Mg Tablet.dr 1,500 Mg PO HS Hydrocortisone 453.6 Gm Cream..g. 1 Juan TP PRN BID PRN Ferrous Sulfate 325 Mg Tablet 650 Mg PO DAILY06 Magnesium Oxide 400 Mg Tablet 400 Mg PO BID Miconazole Nitrate 45 Gm Cream.appl 1 Juan TP PRN BID PRN Aspirin 81 Mg Tab.chew 81 Mg PO DAILY Ibuprofen 400 Mg Tablet 600 Mg PO PRN BID PRN Docusate Sodium 100 Mg Capsule 100 Mg PO BID Fluticasone Propionate Nasal [place] (Fluticasone Propionate) 16 Gm [place].susp 2 [place] NS DAILY Multivitamins (Multivitamin) 1 Each Tablet 1 Tab PO DAILY Trazodone Hcl 50 Mg Tablet 25 Mg PO DAILYWSUP Ascorbic Acid 500 Mg Tablet 500 Mg PO DAILY I have reviewed the current psychotropics carefully including drug interactions. Risk benefit ratio favors no change other than as noted in my dictated progress note. Diagnosis: Problems: (1) Healthcare-associated pneumonia (2) Acute respiratory failure with hypoxia (3) Acute and chronic respiratory failure with hypoxia (4) Anxiety disorder (5) Lewy body dementia with behavioral disturbance (6) Impulse control disorder (7) Personality disorder in adult SAY PRUETT MD May 16, 2018 22:42
[2018-05-17] MEDS: CARBIDOPA/LEVODOPA 25/100MG TABLET PO SCH ×11 (00:20→23:51)
[2018-05-17] MEDS: IPRATROPIUM BROMIDE 0.5 MG/2.5 ML NEBU. NEB SCH ×4 (05:24→19:52)
[2018-05-17] MEDS: FERROUS SULFATE 325 MG TABLET. PO SCH (06:07)
[2018-05-17 06:19] VITALS: BP 120/78
[2018-05-17] MEDS: RIVASTIGMINE 13.3MG PATCH. TD SCH (08:43)
[2018-05-17] MEDS: PRAVASTATIN 20 MG TABLET. PO SCH (08:43)
[2018-05-17] MEDS: LACTULOSE 20 GM/30 ML SOLUTION. PO SCH (08:43)
[2018-05-17] MEDS: LINACLOTIDE 145 MCG CAPSULE. PO SCH (08:44)
[2018-05-17] MEDS: metFORMIN XR 500 MG TAB.ER.24H PO SCH (08:44)
[2018-05-17] MEDS: SERTRALINE 25 MG TABLET. PO SCH (08:44)
[2018-05-17] MEDS: MULTIVITAMIN with MINERAL TABLET. PO SCH (08:45)
[2018-05-17] MEDS: ASPIRIN ENTERIC COATED 81 MG TABLET.DR. PO SCH (08:45)
[2018-05-17] MEDS: MAGNESIUM OXIDE 400 MG TABLET PO SCH ×2 (08:45→20:25)
[2018-05-17] MEDS: DOCUSATE SODIUM 100 MG CAPSULE PO SCH ×2 (08:45→20:25)
[2018-05-17] MEDS: BENZONATATE 100 MG CAPSULE. PO SCH ×2 (08:45→14:04)
[2018-05-17] MEDS: MEMANTINE 10 MG TABLET. PO SCH ×2 (08:45→17:30)
[2018-05-17] MEDS: AMOXICILLIN/K CLAV 875/125MG TABLET. PO SCH ×2 (08:45→20:25)
[2018-05-17] MEDS: ASCORBIC ACID 500 MG TABLET PO SCH (08:45)
[2018-05-17] MEDS: LACTOBACILLUS RHAMNOSUS GG 1 CAPSULE. PO SCH ×2 (08:45→20:25)
[2018-05-17] MEDS: NYSTATIN TOPICAL POWDER 15GM BOTTLE. TP SCH ×2 (08:46→21:08)
[2018-05-17] MEDS: FLUTICASONE 50MCG/NASAL SPRAY 16GM BOTTLE. NS SCH (08:46)
[2018-05-17] MEDS: CHOLECALCIFEROL (VITAMIN D3) 50,000 UNIT CAPSULE PO SCH (08:47)
[2018-05-17 15:56] VITALS: BP 139/94
--- NOTE | 2018-05-17 16:44 | PN ---
DATE: 05/16/2018 This is a late entry 05/16/2018 covers elements not covered in my initial note. SUBJECTIVE: I met with the patient in the evening. The patient slept just 2 hours previous night, but he naps off and on during the day. He remains in a Broda chair, trying to split staff according to nursing report. REVIEW OF SYSTEMS: Ambulation impaired, in Broda chair. No CV, , pulmonary, eye, ENT system symptoms on review. MENTAL STATUS EXAM: Oriented to himself and situation. Speech is coherent, rapid at times. Abstraction fair, computation impaired, language function intact, attention span short. Mood and affect remains somewhat anxious, labile. LABORATORY DATA: Reviewed. IMPRESSION: Unchanged from initial note. PLAN: No change from initial note. We have had a Neurology consult with Dr. Daugherty to explore the possibility of diagnosis of tic disorder and we will await this and then consider options for treatment including Risperdal or clonidine. SAY PRUETT MD DR: MARCEL/nano JOB#: [id number] / [id number]
[2018-05-17] MEDS: traZODone 50 MG TABLET. PO SCH (17:32)
[2018-05-17] MEDS: MELATONIN 3 MG TABLET PO SCH (20:24)
[2018-05-17] MEDS: traZODone 150 MG TABLET. PO SCH (20:24)
[2018-05-17] MEDS: DIVALPROEX SODIUM 250 MG TABLET.DR. PO SCH (20:24)
[2018-05-17] MEDS: QUEtiapine 100 MG TABLET. PO SCH (20:24)
[2018-05-17] MEDS: PRAMIPEXOLE 0.5 MG TABLET. PO SCH (20:25)
[2018-05-17] MEDS: CARBIDOPA/LEVODOPA CR 50/200MG TABLET.SA PO SCH (20:25)
[2018-05-17] MEDS: risperiDONE 0.5 MG TABLET. PO SCH (20:27)
[2018-05-17] MEDS: ALPRAZolam 0.5 MG TABLET PO PRN (21:09)
--- NOTE | 2018-05-17 22:30 | PDOC ---
Exam Note: Сергей Note: Please also refer to the separate dictated note~for this date of service dictated separately.~Patient seen individually. Discussed the patient with Nursing staff reviewed the chart.~Reviewed interim history and current functioning. Reviewed vital signs,~Labs/ Radiology~and current medications noted below. Continue current treatment with the changes noted in the dictated addendum note Assessment: Vital Signs: Vital Signs Date Time Temp Pulse Resp B/P (MAP) Pulse Ox O2 Delivery O2 Flow Rate FiO2 05/17/18 19:54 94 Room Air 05/17/18 15:56 97.8 64 20 139/94 (109) I&O Intake and Output 05/17/18 07:00 Intake Total 1440 ml Balance 1440 ml Intake Oral 1440 ml # Voids 1 # Bowel Movements 1 Current Medications: Meds: Current Medications Acetaminophen (Tylenol) 650 mg PRN Q6HRS PRN PO PAIN / TEMP Last administered on 05/12/18at 15:11; Start 05/10/18 at 17:45 Albuterol Sulfate (Ventolin) 2.5 mg PRN Q4HRS PRN NEB COUGH; Start 05/10/18 at 17:45 Ascorbic Acid (Vitamin C) 500 mg DAILY PO Last administered on 05/17/18at 08:45 ; Start 05/11/18 at 09:00 Throat Lozenges (Cepacol Sore Throat Lozenge) 1 osito PRN Q2HR PRN MM COUGH Last administered on 05/15/18at 15:05; Start 05/10/18 at 17:45 Carbidopa/Levodopa (Sinemet 25/100) 0.5 tab Q2HR W/A PO Last administered on 05/17/18at 20:28; Start 05/10/18 at 18:00 Vitamin D (Vitamin D3) 50,000 unit WEEKLY PO Last administered on 05/17/18at 08 :47; Start 05/17/18 at 09:00 Diclofenac Sodium (Voltaren) 1 juan PRN TID PRN TP MUSCLE PAIN; Start 05/10/18 at 17:45 Ferrous Sulfate (Feosol) 650 mg DAILY06 PO Last administered on 05/17/18at 06: 07; Start 05/11/18 at 06:00 Guaifenesin (Mucinex Er) 600 mg BID PO Last administered on 11/30/18at 20:26; Start 05/10/18 at 21:00 Ibuprofen (Motrin) 600 mg PRN BID PRN PO INFLAMMATION PAIN Last administered on 05/13/18 16:19; Start 05/10/18 at 17:45 Ipratropium [place] (Atrovent) 0.5 mg RTQID NEB Last administered on 19:52; Start 05/10/18 at 20:00 Linaclotide (Linzess) 145 mcg DAILY PO Last administered on 05/17/18 08:44; Start 05/11/18 at 09:00 Al Hydroxide/Mg Hydroxide (Mylanta Plus Xs) 15 ml PRN AFTMEALHC PRN PO DYSPEPSIA; Start 05/10/18 at 17:45 Multi-Ingredient Ointment (Analgesic [place]) 1 juan QID PRN TP MUSCLE PAIN; Start 05/10/18 at 17:45 Nystatin (Nystop) 1 juan BID TP Last administered on 05/17/18 21:08; Start at 21:00 Olanzapine (ZyPREXA ZYDIS) 5 mg PRN Q2HR PRN PO ANXIETY / AGITATION Last administered on 05/13/18 23:10; Start 05/10/18 at 17:45 Amoxicillin/ Clavulanate Potassium (Augmentin 875/ 125mg) 1 tab BID PO Last administered on 05/17/18 20:25; Start 05/10/18 at 21:00 Aspirin (Aspirin Enteric Coated) 81 mg DAILYWBKFT PO Last administered on 05/17at 08:45; Start 05/11/18 at 08:00 Benzonatate (Tessalon Perle) 100 mg [id number] PO Last administered on 05/17/18 14:04; Start 05/10/18 at 21:00; Stop 05/17/18 at 14:52; Status DC Carbidopa/Levodopa (Sinemet Cr) 1 tab.sa QHS PO Last administered on 20:25; Start 05/10/18 at 21:00 Diazepam (Valium) 2 mg PRN Q6HRS PRN PO ANXIETY / AGITATION Last administered on 05/11/18 08:41; Start 05/10/18 at 18:00; Stop 05/11/18 at 18:16; Status DC Divalproex Sodium (Depakote) 1,500 mg QHS PO Last administered on 05/17/18 20 :24; Start 05/10/18 at 21:00 Docusate Sodium (Colace) 100 mg BID PO Last administered on 05/17/18 20:25; Start 05/10/18 at 21:00 Fluticasone Propionate (Flonase) 2 spray DAILY NS Last administered on 08:46; Start 05/11/18 at 09:00 Hydrocortisone (Cortaid) 1 juan PRN BID PRN TP RASH; Start 05/10/18 at 19:15 Lactobacillus Rhamnosus (Culturelle) 1 cap BID PO Last administered on 20:25; Start 05/10/18 at 21:00 Lactulose (Lactulose) 15 gm DAILYWBKFT PO Last administered on 05/17/18 08:43 ; Start 05/11/18 at 08:00 Magnesium Hydroxide (Milk Of Magnesia) 2,400 mg PRN QHS PRN PO CONSTIPATION; Start 05/10/18 at 18:30 Magnesium Oxide (Magnesium Oxide) 400 mg BID PO Last administered on 20:25; Start 05/10/18 at 21:00 Melatonin 3 mg QHS PO Last administered on 05/17/18 20:24; Start 05/10/18 at 21:00 Memantine (Namenda) 10 mg BIDWMEALS PO Last administered on 05/17/18 17:30; Start 05/10/18 at 18:30 Metformin HCl (Glucophage Xr) 1,000 mg DAILYWBKFT PO Last administered on 05/17 08:44; Start 05/11/18 at 08:00 Miconazole Nitrate (Monistat-Derm) 1 juan PRN BID PRN TP RASH; Start 05/10/18 at 21:00 Multivitamins/ Calcium (Thera-M Plus) 1 tab DAILY PO Last administered on 05/17 08:45; Start 05/11/18 at 09:00 Pramipexole Dihydrochloride (miraPEX) 0.5 mg QHS PO Last administered on 20:25; Start 05/10/18 at 21:00 Pravastatin Sodium (Pravachol) 40 mg DAILY PO Last administered on 05/17/18 08:43; Start 05/11/18 at 09:00 Quetiapine Fumarate (SEROquel) 200 mg QHS PO Last administered on 05/17/18 20 :24; Start 05/10/18 at 21:00 Rivastigmine (Exelon) 1 patch DAILY TD Last administered on 05/15/18 08:04; Start 05/11/18 at 09:00; Stop 05/15/18 at 12:34; Status DC Sertraline HCl (Zoloft) 75 mg DAILY PO Last administered on 05/17/18 08:44; Start 05/11/18 at 09:00 Trazodone HCl (Desyrel) 25 mg DAILYWSUP PO Last administered on 05/17/18 17: 32; Start 05/10/18 at 18:30 Trazodone HCl (Desyrel) 100 mg PRN QHS PRN PO INSOMNIA Last administered on 23:10; Start 05/10/18 at 18:00 Trazodone HCl (Desyrel) 150 mg QHS PO Last administered on 05/17/18 20:24; Start 05/10/18 at 21:00 Acetaminophen (Tylenol) 650 mg PRN Q6HRS PRN PO PAIN / TEMP; Start 05/10/18 at 18:15; Status UNV Multi-Ingredient Ointment (Analgesic [place]) 1 juan PRN QID PRN TP MUSCLE PAIN; Start 05/10/18 at 18:15; Status UNV Al Hydroxide/Mg Hydroxide (Mylanta Plus Xs) 15 ml PRN AFTMEALHC PRN PO DYSPEPSIA; Start 05/10/18 at 18:15; Status UNV Magnesium Hydroxide (Milk Of Magnesia) 2,400 mg PRN QHS PRN PO CONSTIPATION; Start 05/10/18 at 18:15; Status UNV Alprazolam (Xanax) 0.5 mg PRN Q6HRS PRN PO ANXIETY / AGITATION Last administered on 05/17/18 21:09; Start 05/11/18 at 18:15 Rivastigmine (Exelon 13.3mg) 1 patch DAILY TD Last administered on 05/17/18 08:43; Start 05/16/18 at 09:00 Risperidone (RisperDAL) 0.5 mg HS PO Last administered on 05/17/18at 20:27; Start 05/17/18 at 21:00 Active Scripts Active Reported Neomycin Sulfate 500 Mg Tablet 1 Juan PO DAILY Augmentin 875-125 Tablet (Amoxicillin/Potassium Clav) 1 Each Tablet 1 Each PO BID 5 Days Albuterol Sulfate Neb Soln (Albuterol Sulfate) 2.5 Mg/3 Ml Vial.neb 2.5 Mg PRN Q4HRS PRN EXELON 9.5mg/24hr (Rivastigmine) 1 Each Patch.td24 1 Patch TD DAILY Trazodone Hcl 150 Mg Tablet 150 Mg PO HS Trazodone Hcl 100 Mg Tablet 100 Mg PO PRN QHS PRN Guaifenesin 600 Mg Tablet.er 600 Mg PO BID Zoloft (Sertraline Hcl) 25 Mg Tablet 75 Mg PO DAILY Seroquel (Quetiapine Fumarate) 200 Mg Tablet 200 Mg PO HS Ipratropium [place] 0.2 Mg/1 Ml Solution 1 Vial NEB QID Benzonatate 100 Mg Capsule 100 Mg PO TID Cepacol Sore Throat Lozenge (Benzocaine/Menthol) 1 Each Lozenge 1 Each MM PRN Q2HR PRN Mag-Al Plus Xs Suspension (Mag Hydrox/Al Hydrox/Simeth) 30 Ml Oral.susp 15 Ml PO PRN AFTMEALHC PRN Lactulose 10 Gm/15 Ml Solution 15 Gm PO DAILYWBKFT Zyprexa Zydis (Olanzapine) 5 Mg Tab.rapdis 5 Mg PO PRN Q2HR PRN Analgesic [place] (Methyl Salicylate/Menthol) 28 Gm Oint...g. 1 Juan TP QID PRN Namenda (Memantine Hcl) 10 Mg Tablet 1 Tab PO BIDWMEALS Melatonin 3 Mg Tablet 1 Tab PO QHS Culturelle (Lactobacillus Rhamnosus Gg) 1 Each Capsule 1 Each PO BID Glucophage Xr (Metformin Hcl) 500 Mg Tab.er.24h 2 Tab PO DAILYWBKFT Nystatin 15 Gm Powder 1 Juan TP BID Milk Of Magnesia (Magnesium Hydroxide) 2,400 Mg/10 Ml Oral.susp 2,400 Mg PO HS PRN Voltaren (Diclofenac Sodium) 100 Gm Gel..gram. 1 Juan TP PRN TID PRN FOR NECK PAIN Vitamin D3 (Cholecalciferol (Vitamin D3)) 50,000 Unit Capsule 50,000 Unit PO WEEKLY Tylenol (Acetaminophen) 325 Mg Tablet 2 Tab PO PRN Q6HRS PRN Pravastatin Sodium 40 Mg Tablet 40 Mg PO DAILY Carbidopa-Levo Er 50-200 Tab (Carbidopa/Levodopa) 1 Each Tablet.er 1 Each PO HS Sinemet 25-100 Mg Tablet (Carbidopa/Levodopa) 1 Each Tablet 0.5 Tab PO Q2HR W/A Diazepam 2 Mg Tablet 2 Mg PO PRN Q6HRS PRN Mirapex (Pramipexole Di-Hcl) 0.25 Mg Tablet 0.5 Mg PO HS Linzess (Linaclotide) 145 Mcg Capsule 145 Mcg PO DAILY Divalproex Sodium 500 Mg Tablet.dr 1,500 Mg PO HS Hydrocortisone 453.6 Gm Cream..g. 1 Juan TP PRN BID PRN Ferrous Sulfate 325 Mg Tablet 650 Mg PO DAILY06 Magnesium Oxide 400 Mg Tablet 400 Mg PO BID Miconazole Nitrate 45 Gm Cream.appl 1 Juan TP PRN BID PRN Aspirin 81 Mg Tab.chew 81 Mg PO DAILY Ibuprofen 400 Mg Tablet 600 Mg PO PRN BID PRN Docusate Sodium 100 Mg Capsule 100 Mg PO BID Fluticasone Propionate Nasal [place] (Fluticasone Propionate) 16 Gm [place].susp 2 [place] NS DAILY Multivitamins (Multivitamin) 1 Each Tablet 1 Tab PO DAILY Trazodone Hcl 50 Mg Tablet 25 Mg PO DAILYWSUP Ascorbic Acid 500 Mg Tablet 500 Mg PO DAILY I have reviewed the current psychotropics carefully including drug interactions. Risk benefit ratio favors no change other than as noted in my dictated progress note. SAY PRUETT MD May 17, 2018 22:30
[2018-05-18] MEDS: IPRATROPIUM BROMIDE 0.5 MG/2.5 ML NEBU. NEB SCH ×4 (05:13→20:18)
[2018-05-18 05:53] VITALS: BP 149/69
[2018-05-18] MEDS: FERROUS SULFATE 325 MG TABLET. PO SCH (06:28)
[2018-05-18] MEDS: CARBIDOPA/LEVODOPA 25/100MG TABLET PO SCH ×9 (06:29→22:40)
[2018-05-18] MEDS: RIVASTIGMINE 13.3MG PATCH. TD SCH (07:30)
[2018-05-18] MEDS: LACTULOSE 20 GM/30 ML SOLUTION. PO SCH (07:30)
[2018-05-18] MEDS: metFORMIN XR 500 MG TAB.ER.24H PO SCH (07:32)
[2018-05-18] MEDS: SERTRALINE 25 MG TABLET. PO SCH (07:32)
[2018-05-18] MEDS: MAGNESIUM OXIDE 400 MG TABLET PO SCH ×2 (07:33→19:51)
[2018-05-18] MEDS: ASPIRIN ENTERIC COATED 81 MG TABLET.DR. PO SCH (07:33)
[2018-05-18] MEDS: ASCORBIC ACID 500 MG TABLET PO SCH (07:34)
[2018-05-18] MEDS: MULTIVITAMIN with MINERAL TABLET. PO SCH (07:34)
[2018-05-18 07:35] LABS: BASO % 1 % (0-3); EOS # 0.4 x10^3/uL (0.0-0.7); EOS % 6 % (0-3); HEMATOCRIT 37.8 % (39.0-53.0); HEMOGLOBIN 12.5 g/dL (13.0-17.5); LYMPH # 1.3 x10^3/uL (1.0-4.8); LYMPH % 18 % (24-48); MEAN CORPUSCULAR HEMOGLOBIN 31 pg (25-35); MEAN CORPUSCULAR HGB CONC 33 g/dL (31-37); MEAN CORPUSCULAR VOLUME 92 fL (79-100); MONO # 0.7 x10^3/uL (0.0-1.1); MONO % 10 % (0-9); NEUT # 4.5 x10^3uL (1.8-7.7); NEUT % 66 % (31-73); PLATELET COUNT 269 x10^3/uL (140-400); RED CELL DISTRIBUTION WIDTH 14.1 % (11.5-14.5); WHITE BLOOD COUNT 6.9 x10^3/uL (4.0-11.0)
[2018-05-18] MEDS: PRAVASTATIN 20 MG TABLET. PO SCH (07:35)
[2018-05-18] MEDS: LACTOBACILLUS RHAMNOSUS GG 1 CAPSULE. PO SCH ×2 (07:35→19:51)
[2018-05-18] MEDS: MEMANTINE 10 MG TABLET. PO SCH ×2 (07:36→16:58)
[2018-05-18] MEDS: DOCUSATE SODIUM 100 MG CAPSULE PO SCH ×2 (07:36→19:51)
[2018-05-18] MEDS: FLUTICASONE 50MCG/NASAL SPRAY 16GM BOTTLE. NS SCH (07:37)
[2018-05-18] MEDS: LINACLOTIDE 145 MCG CAPSULE. PO SCH (07:38)
[2018-05-18] MEDS: AMOXICILLIN/K CLAV 875/125MG TABLET. PO SCH ×2 (07:39→19:50)
[2018-05-18] MEDS: NYSTATIN TOPICAL POWDER 15GM BOTTLE. TP SCH ×2 (07:40→21:11)
[2018-05-18 07:44] LABS: ALBUMIN 2.9 g/dL (3.4-5.0); ALBUMIN/GLOBULIN RATIO 0.8 (1.0-1.7); ALK PHOS 62 U/L (46-116); ALT (SGPT) 8 U/L (16-63); ANION GAP 4 (6-14); AST (SGOT) 15 U/L (15-37); BLOOD UREA NITROGEN 15 mg/dL (8-26); BUN/CREATININE RATIO 19 (6-20); CARBON DIOXIDE 37 mmol/L (21-32); CHLORIDE 97 mmol/L (98-107); CREATININE 0.8 mg/dL (0.7-1.3); GFR 96.7; GLUCOSE 82 mg/dL (70-99); SODIUM 138 mmol/L (136-145); TOTAL BILIRUBIN 0.5 mg/dL (0.2-1.0); TOTAL PROTEIN 6.6 g/dL (6.4-8.2)
[2018-05-18 07:47] LABS: VAL ACID 68 mcg/mL (50-100)
[2018-05-18 15:48] VITALS: BP 134/88
[2018-05-18] MEDS: traZODone 50 MG TABLET. PO SCH (16:57)
[2018-05-18] MEDS: QUEtiapine 100 MG TABLET. PO SCH (19:50)
[2018-05-18] MEDS: risperiDONE 0.5 MG TABLET. PO SCH (19:50)
[2018-05-18] MEDS: DIVALPROEX SODIUM 250 MG TABLET.DR. PO SCH (19:50)
[2018-05-18] MEDS: traZODone 150 MG TABLET. PO SCH (19:51)
[2018-05-18] MEDS: PRAMIPEXOLE 0.5 MG TABLET. PO SCH (19:51)
[2018-05-18] MEDS: CARBIDOPA/LEVODOPA CR 50/200MG TABLET.SA PO SCH (19:51)
[2018-05-18] MEDS: MELATONIN 3 MG TABLET PO SCH (19:51)
--- NOTE | 2018-05-18 21:41 | PDOC ---
Exam Note: Сергей Note: Please also refer to the separate dictated note~for this date of service dictated separately.~Patient seen individually. Discussed the patient with Nursing staff reviewed the chart.~Reviewed interim history and current functioning. Reviewed vital signs,~Labs/ Radiology~and current medications noted below. Continue current treatment with the changes noted in the dictated addendum note Assessment: Vital Signs: Vital Signs Date Time Temp Pulse Resp B/P (MAP) Pulse Ox O2 Delivery O2 Flow Rate FiO2 05/18/18 20:20 95 Room Air 05/18/18 15:48 97.5 67 20 134/88 (103) I&O Intake and Output 05/18/18 07:00 Intake Total 1320 ml Balance 1320 ml Intake Oral 1320 ml # Voids 1 # Bowel Movements 1 Labs: Laboratory Tests Test 05/18/18 07:18 White Blood Count 6.9 x10^3/uL (4.0-11.0) Red Blood Count 4.10 x10^6/uL (4.30-5.70) L Hemoglobin 12.5 g/dL (13.0-17.5) L Hematocrit 37.8 % (39.0-53.0) L Mean Corpuscular Volume 92 fL (79-100) Mean Corpuscular Hemoglobin 31 pg (25-35) Mean Corpuscular Hemoglobin Concent 33 g/dL (31-37) Red Cell Distribution Width 14.1 % (11.5-14.5) Platelet Count 269 x10^3/uL (140-400) Neutrophils (%) (Auto) 66 % (31-73) Lymphocytes (%) (Auto) 18 % (24-48) L Monocytes (%) (Auto) 10 % (0-9) H Eosinophils (%) (Auto) 6 % (0-3) H Basophils (%) (Auto) 1 % (0-3) Neutrophils # (Auto) 4.5 x10^3uL (1.8-7.7) Lymphocytes # (Auto) 1.3 x10^3/uL (1.0-4.8) Monocytes # (Auto) 0.7 x10^3/uL (0.0-1.1) Eosinophils # (Auto) 0.4 x10^3/uL (0.0-0.7) Basophils # (Auto) 0.0 x10^3/uL (0.0-0.2) Sodium Level 138 mmol/L (136-145) Potassium Level 4.0 mmol/L (3.5-5.1) Chloride Level 97 mmol/L (98-107) L Carbon Dioxide Level 37 mmol/L (21-32) H Anion Gap 4 (6-14) L Blood Urea Nitrogen 15 mg/dL (8-26) Creatinine 0.8 mg/dL (0.7-1.3) Estimated GFR (Cockcroft-Gault) 96.7 BUN/Creatinine Ratio 19 (6-20) Glucose Level 82 mg/dL (70-99) Calcium Level 9.0 mg/dL (8.5-10.1) Total Bilirubin 0.5 mg/dL (0.2-1.0) Aspartate Amino Transferase (AST) 15 U/L (15-37) Alanine Aminotransferase (ALT) 8 U/L (16-63) L Alkaline Phosphatase 62 U/L (46-116) Total Protein 6.6 g/dL (6.4-8.2) Albumin 2.9 g/dL (3.4-5.0) L Albumin/Globulin Ratio 0.8 (1.0-1.7) L Valproic Acid Level 68 mcg/mL (50-100) Valproic Acid Last Dose Date 05/17/2018 Valproic Acid Last Dose Time 2100 Current Medications: Meds: Current Medications Acetaminophen (Tylenol) 650 mg PRN Q6HRS PRN PO PAIN / TEMP Last administered on 05/12/18at 15:11; Start 05/10/18 at 17:45 Albuterol Sulfate (Ventolin) 2.5 mg PRN Q4HRS PRN NEB COUGH; Start 05/10/18 at 17:45 Ascorbic Acid (Vitamin C) 500 mg DAILY PO Last administered on 05/18/18at 07:34 ; Start 05/11/18 at 09:00 Throat Lozenges (Cepacol Sore Throat Lozenge) 1 osito PRN Q2HR PRN MM COUGH Last administered on 05/15/18at 15:05; Start 05/10/18 at 17:45 Carbidopa/Levodopa (Sinemet 25/100) 0.5 tab Q2HR W/A PO Last administered on 05/18/18at 19:52; Start 05/10/18 at 18:00 Vitamin D (Vitamin D3) 50,000 unit WEEKLY PO Last administered on 05/17/18at 08 :47; Start 05/17/18 at 09:00 Diclofenac Sodium (Voltaren) 1 juan PRN TID PRN TP MUSCLE PAIN; Start 05/10/18 at 17:45 Ferrous Sulfate (Feosol) 650 mg DAILY06 PO Last administered on 05/18/18at 06:28 ; Start 05/11/18 at 06:00 Guaifenesin (Mucinex Er) 600 mg BID PO Last administered on 05/18/18at 19:51; Start 05/10/18 at 21:00 Ibuprofen (Motrin) 600 mg PRN BID PRN PO INFLAMMATION PAIN Last administered on 05/13/18 16:19; Start 05/10/18 at 17:45 Ipratropium [place] (Atrovent) 0.5 mg RTQID NEB Last administered on 05/18/18at 20:18; Start 05/10/18 at 20:00 Linaclotide (Linzess) 145 mcg DAILY PO Last administered on 05/18/18at 07:38; Start 05/11/18 at 09:00 Al Hydroxide/Mg Hydroxide (Mylanta Plus Xs) 15 ml PRN AFTMEALHC PRN PO DYSPEPSIA; Start 05/10/18 at 17:45 Multi-Ingredient Ointment (Analgesic [place]) 1 juan QID PRN TP MUSCLE PAIN; Start 05/10/18 at 17:45 Nystatin (Nystop) 1 juan BID TP Last administered on 05/18/18at 21:11; Start at 21:00 Olanzapine (ZyPREXA ZYDIS) 5 mg PRN Q2HR PRN PO ANXIETY / AGITATION Last administered on 05/13/18at 23:10; Start 05/10/18 at 17:45 Amoxicillin/ Clavulanate Potassium (Augmentin 875/ 125mg) 1 tab BID PO Last administered on 05/18/18at 19:50; Start 05/10/18 at 21:00 Aspirin (Aspirin Enteric Coated) 81 mg DAILYWBKFT PO Last administered on at 07:33; Start 05/11/18 at 08:00 Benzonatate (Tessalon Perle) 100 mg [id number] PO Last administered on 05/17/18 14:04; Start 05/10/18 at 21:00; Stop 05/17/18 at 14:52; Status DC Carbidopa/Levodopa (Sinemet Cr) 1 tab.sa QHS PO Last administered on 05/18/18 19:51; Start 05/10/18 at 21:00 Diazepam (Valium) 2 mg PRN Q6HRS PRN PO ANXIETY / AGITATION Last administered on 05/11/18 08:41; Start 05/10/18 at 18:00; Stop 05/11/18 at 18:16; Status DC Divalproex Sodium (Depakote) 1,500 mg QHS PO Last administered on 05/18/18 19: 50; Start 05/10/18 at 21:00 Docusate Sodium (Colace) 100 mg BID PO Last administered on 05/18/18 19:51; Start 05/10/18 at 21:00 Fluticasone Propionate (Flonase) 2 spray DAILY NS Last administered on 07:37; Start 05/11/18 at 09:00 Hydrocortisone (Cortaid) 1 juan PRN BID PRN TP RASH; Start 05/10/18 at 19:15 Lactobacillus Rhamnosus (Culturelle) 1 cap BID PO Last administered on 19:51; Start 05/10/18 at 21:00 Lactulose (Lactulose) 15 gm DAILYWBKFT PO Last administered on 05/18/18 07:30 ; Start 05/11/18 at 08:00 Magnesium Hydroxide (Milk Of Magnesia) 2,400 mg PRN QHS PRN PO CONSTIPATION; Start 05/10/18 at 18:30 Magnesium Oxide (Magnesium Oxide) 400 mg BID PO Last administered on 05/18/18 19:51; Start 05/10/18 at 21:00 Melatonin 3 mg QHS PO Last administered on 05/18/18 19:51; Start 05/10/18 at 21:00 Memantine (Namenda) 10 mg BIDWMEALS PO Last administered on 05/18/18 16:58; Start 05/10/18 at 18:30 Metformin HCl (Glucophage Xr) 1,000 mg DAILYWBKFT PO Last administered on 12/1/ 18at 07:32; Start 05/11/18 at 08:00 Miconazole Nitrate (Monistat-Derm) 1 juan PRN BID PRN TP RASH; Start 05/10/18 at 21:00 Multivitamins/ Calcium (Thera-M Plus) 1 tab DAILY PO Last administered on at 07:34; Start 05/11/18 at 09:00 Pramipexole Dihydrochloride (miraPEX) 0.5 mg QHS PO Last administered on at 19:51; Start 05/10/18 at 21:00 Pravastatin Sodium (Pravachol) 40 mg DAILY PO Last administered on 05/18/18at 07 :35; Start 05/11/18 at 09:00 Quetiapine Fumarate (SEROquel) 200 mg QHS PO Last administered on 05/18/18at 19: 50; Start 05/10/18 at 21:00 Rivastigmine (Exelon) 1 patch DAILY TD Last administered on 05/15/18at 08:04; Start 05/11/18 at 09:00; Stop 05/15/18 at 12:34; Status DC Sertraline HCl (Zoloft) 75 mg DAILY PO Last administered on 05/18/18at 07:32; Start 05/11/18 at 09:00 Trazodone HCl (Desyrel) 25 mg DAILYWSUP PO Last administered on 05/18/18at 16:57 ; Start 05/10/18 at 18:30 Trazodone HCl (Desyrel) 100 mg PRN QHS PRN PO INSOMNIA Last administered on at 23:10; Start 05/10/18 at 18:00 Trazodone HCl (Desyrel) 150 mg QHS PO Last administered on 05/18/18at 19:51; Start 05/10/18 at 21:00 Acetaminophen (Tylenol) 650 mg PRN Q6HRS PRN PO PAIN / TEMP; Start 05/10/18 at 18:15; Status UNV Multi-Ingredient Ointment (Analgesic [place]) 1 juan PRN QID PRN TP MUSCLE PAIN; Start 05/10/18 at 18:15; Status UNV Al Hydroxide/Mg Hydroxide (Mylanta Plus Xs) 15 ml PRN AFTMEALHC PRN PO DYSPEPSIA; Start 05/10/18 at 18:15; Status UNV Magnesium Hydroxide (Milk Of Magnesia) 2,400 mg PRN QHS PRN PO CONSTIPATION; Start 05/10/18 at 18:15; Status UNV Alprazolam (Xanax) 0.5 mg PRN Q6HRS PRN PO ANXIETY / AGITATION Last administered on 05/17/18at 21:09; Start 05/11/18 at 18:15 Rivastigmine (Exelon 13.3mg) 1 patch DAILY TD Last administered on 05/18/18at 07 :30; Start 05/16/18 at 09:00 Risperidone (RisperDAL) 0.5 mg HS PO Last administered on 05/18/18at 19:50; Start 05/17/18 at 21:00 Active Scripts Active Reported Neomycin Sulfate 500 Mg Tablet 1 Juan PO DAILY Augmentin 875-125 Tablet (Amoxicillin/Potassium Clav) 1 Each Tablet 1 Each PO BID 5 Days Albuterol Sulfate Neb Soln (Albuterol Sulfate) 2.5 Mg/3 Ml Vial.neb 2.5 Mg PRN Q4HRS PRN EXELON 9.5mg/24hr (Rivastigmine) 1 Each Patch.td24 1 Patch TD DAILY Trazodone Hcl 150 Mg Tablet 150 Mg PO HS Trazodone Hcl 100 Mg Tablet 100 Mg PO PRN QHS PRN Guaifenesin 600 Mg Tablet.er 600 Mg PO BID Zoloft (Sertraline Hcl) 25 Mg Tablet 75 Mg PO DAILY Seroquel (Quetiapine Fumarate) 200 Mg Tablet 200 Mg PO HS Ipratropium [place] 0.2 Mg/1 Ml Solution 1 Vial NEB QID Benzonatate 100 Mg Capsule 100 Mg PO TID Cepacol Sore Throat Lozenge (Benzocaine/Menthol) 1 Each Lozenge 1 Each MM PRN Q2HR PRN Mag-Al Plus Xs Suspension (Mag Hydrox/Al Hydrox/Simeth) 30 Ml Oral.susp 15 Ml PO PRN AFTMEALHC PRN Lactulose 10 Gm/15 Ml Solution 15 Gm PO DAILYWBKFT Zyprexa Zydis (Olanzapine) 5 Mg Tab.rapdis 5 Mg PO PRN Q2HR PRN Analgesic [place] (Methyl Salicylate/Menthol) 28 Gm Oint...g. 1 Juan TP QID PRN Namenda (Memantine Hcl) 10 Mg Tablet 1 Tab PO BIDWMEALS Melatonin 3 Mg Tablet 1 Tab PO QHS Culturelle (Lactobacillus Rhamnosus Gg) 1 Each Capsule 1 Each PO BID Glucophage Xr (Metformin Hcl) 500 Mg Tab.er.24h 2 Tab PO DAILYWBKFT Nystatin 15 Gm Powder 1 Juan TP BID Milk Of Magnesia (Magnesium Hydroxide) 2,400 Mg/10 Ml Oral.susp 2,400 Mg PO HS PRN Voltaren (Diclofenac Sodium) 100 Gm Gel..gram. 1 Juan TP PRN TID PRN FOR NECK PAIN Vitamin D3 (Cholecalciferol (Vitamin D3)) 50,000 Unit Capsule 50,000 Unit PO WEEKLY Tylenol (Acetaminophen) 325 Mg Tablet 2 Tab PO PRN Q6HRS PRN Pravastatin Sodium 40 Mg Tablet 40 Mg PO DAILY Carbidopa-Levo Er 50-200 Tab (Carbidopa/Levodopa) 1 Each Tablet.er 1 Each PO HS Sinemet 25-100 Mg Tablet (Carbidopa/Levodopa) 1 Each Tablet 0.5 Tab PO Q2HR W/A Diazepam 2 Mg Tablet 2 Mg PO PRN Q6HRS PRN Mirapex (Pramipexole Di-Hcl) 0.25 Mg Tablet 0.5 Mg PO HS Linzess (Linaclotide) 145 Mcg Capsule 145 Mcg PO DAILY Divalproex Sodium 500 Mg Tablet.dr 1,500 Mg PO HS Hydrocortisone 453.6 Gm Cream..g. 1 Juan TP PRN BID PRN Ferrous Sulfate 325 Mg Tablet 650 Mg PO DAILY06 Magnesium Oxide 400 Mg Tablet 400 Mg PO BID Miconazole Nitrate 45 Gm Cream.appl 1 Juan TP PRN BID PRN Aspirin 81 Mg Tab.chew 81 Mg PO DAILY Ibuprofen 400 Mg Tablet 600 Mg PO PRN BID PRN Docusate Sodium 100 Mg Capsule 100 Mg PO BID Fluticasone Propionate Nasal [place] (Fluticasone Propionate) 16 Gm [place].susp 2 [place] NS DAILY Multivitamins (Multivitamin) 1 Each Tablet 1 Tab PO DAILY Trazodone Hcl 50 Mg Tablet 25 Mg PO DAILYWSUP Ascorbic Acid 500 Mg Tablet 500 Mg PO DAILY I have reviewed the current psychotropics carefully including drug interactions. Risk benefit ratio favors no change other than as noted in my dictated progress note. Diagnosis: Problems: (1) Healthcare-associated pneumonia (2) Acute respiratory failure with hypoxia (3) Acute and chronic respiratory failure with hypoxia (4) Anxiety disorder (5) Lewy body dementia with behavioral disturbance (6) Impulse control disorder (7) Personality disorder in adult SAY PRUETT MD May 18, 2018 21:41
[2018-05-19] MEDS: IPRATROPIUM BROMIDE 0.5 MG/2.5 ML NEBU. NEB SCH ×4 (05:17→21:01)
[2018-05-19 05:46] VITALS: BP 144/73
[2018-05-19] MEDS: FERROUS SULFATE 325 MG TABLET. PO SCH (06:19)
[2018-05-19] MEDS: CARBIDOPA/LEVODOPA 25/100MG TABLET PO SCH ×9 (06:19→22:14)
[2018-05-19] MEDS: MAGNESIUM OXIDE 400 MG TABLET PO SCH ×2 (07:36→20:25)
[2018-05-19] MEDS: DOCUSATE SODIUM 100 MG CAPSULE PO SCH ×2 (07:36→20:25)
[2018-05-19] MEDS: RIVASTIGMINE 13.3MG PATCH. TD SCH (07:36)
[2018-05-19] MEDS: LINACLOTIDE 145 MCG CAPSULE. PO SCH (07:36)
[2018-05-19] MEDS: LACTULOSE 20 GM/30 ML SOLUTION. PO SCH (07:36)
[2018-05-19] MEDS: ASCORBIC ACID 500 MG TABLET PO SCH (07:36)
[2018-05-19] MEDS: MULTIVITAMIN with MINERAL TABLET. PO SCH (07:36)
[2018-05-19] MEDS: AMOXICILLIN/K CLAV 875/125MG TABLET. PO SCH ×2 (07:36→20:25)
[2018-05-19] MEDS: MEMANTINE 10 MG TABLET. PO SCH ×2 (07:37→16:46)
[2018-05-19] MEDS: LACTOBACILLUS RHAMNOSUS GG 1 CAPSULE. PO SCH ×2 (07:37→20:25)
[2018-05-19] MEDS: NYSTATIN TOPICAL POWDER 15GM BOTTLE. TP SCH ×2 (07:37→20:27)
[2018-05-19] MEDS: PRAVASTATIN 20 MG TABLET. PO SCH (07:37)
[2018-05-19] MEDS: FLUTICASONE 50MCG/NASAL SPRAY 16GM BOTTLE. NS SCH (07:37)
[2018-05-19] MEDS: metFORMIN XR 500 MG TAB.ER.24H PO SCH (07:37)
[2018-05-19] MEDS: ASPIRIN ENTERIC COATED 81 MG TABLET.DR. PO SCH (07:37)
[2018-05-19] MEDS: SERTRALINE 25 MG TABLET. PO SCH (07:37)
--- NOTE | 2018-05-19 12:50 | PN ---
DATE: 05/17/2018 This is a late entry 05/17/2018 covers elements not covered in my initial note. SUBJECTIVE: I met with the patient in the evening at length. The patient slept 5-1/4 hours previous evening. He remains on one-on-one status due to his marked mood lability attempts to throw himself off the chair onto the floor. Previous night he was unsteady, trying to put himself on the floor, remains paranoid. States the staff, throws him around which is not accurate, carefully evaluated with staff. We will be checking CBC, CMP, valproic acid level in the morning of 05/18/2018. REVIEW OF SYSTEMS: Ambulation impaired, in wheelchair. No CV, , pulmonary, eye, ENT system symptoms on review, has some vague somatic symptoms. MENTAL STATUS EXAM: Oriented to himself and situation. Speech coherent, rapid at times. Abstraction fair, computation impaired, language function intact, attention span short. Mood and affect remains labile. LABORATORY DATA: Reviewed. IMPRESSION: Bipolar 1 disorder, mixed Lewy body dementia with delusion, behavioral disturbance, possible tic disorder, unspecified; impulse control disorder; anxiety disorder, unspecified. PLAN: Check labs as noted above. Given his bipolar symptoms on response to Depakote as a mood stabilizer, so far, some of the presentation of a tic disorder. We will go ahead and add Risperdal 0.5 mg p.o. at bedtime. Make further adjustments as clinically indicated. MAN Rosa PRUETT MD DR: MARCEL/nano JOB#: [id number] / [id number]
[2018-05-19 15:44] VITALS: BP 142/93
[2018-05-19] MEDS: traZODone 50 MG TABLET. PO SCH (16:46)
[2018-05-19] MEDS: traZODone 150 MG TABLET. PO SCH (20:24)
[2018-05-19] MEDS: DIVALPROEX SODIUM 250 MG TABLET.DR. PO SCH (20:24)
[2018-05-19] MEDS: MELATONIN 3 MG TABLET PO SCH (20:25)
[2018-05-19] MEDS: PRAMIPEXOLE 0.5 MG TABLET. PO SCH (20:25)
[2018-05-19] MEDS: risperiDONE 0.5 MG TABLET. PO SCH (20:25)
[2018-05-19] MEDS: CARBIDOPA/LEVODOPA CR 50/200MG TABLET.SA PO SCH (20:25)
[2018-05-19] MEDS: QUEtiapine 100 MG TABLET. PO SCH (20:26)
--- NOTE | 2018-05-19 22:33 | PN ---
DATE: 05/18/2018 This is a late entry for 05/18/2018 covers elements not covered in my initial note. SUBJECTIVE: I met with the patient in the evening. The patient slept 4 hours previous night. He has been manipulative the previous evening, but during the day on 05/18/2018 is better. He remains on one-on-one status due to his propensity to drop himself on the floor and injure himself. REVIEW OF SYSTEMS: Positive for impaired ambulation in a [place]da chair. No CV, , pulmonary, eye, ENT system symptoms on review. MENTAL STATUS EXAM: Oriented to himself and situation. Speech coherent, rapid at times. Abstraction fair, computation impaired, language function intact, attention-span short. Mood and affect continues to be somewhat labile, anxious, but improved. LABORATORY DATA: Reviewed. IMPRESSION: Bipolar 1 disorder, mixed anxiety disorder, unspecified, Lewy body dementia; impulse control disorder. PLAN: No change from a psychiatric standpoint. Maintain Risperdal at current dosage 0.5 mg at bedtime. May need to adjust gradually and gradually take him off the one-on-one status. MAN Rosa PRUETT MD DR: MARCEL/nano JOB#: [id number] / [id number]
[2018-05-19] MEDS: traZODone 100 MG TABLET. PO PRN (23:02)
[2018-05-20] MEDS: FERROUS SULFATE 325 MG TABLET. PO SCH (04:59)
[2018-05-20] MEDS: CARBIDOPA/LEVODOPA 25/100MG TABLET PO SCH ×9 (05:00→22:00)
[2018-05-20 05:45] VITALS: BP 150/84
[2018-05-20] MEDS: IPRATROPIUM BROMIDE 0.5 MG/2.5 ML NEBU. NEB SCH ×4 (06:02→20:24)
[2018-05-20] MEDS: RIVASTIGMINE 13.3MG PATCH. TD SCH (07:36)
[2018-05-20] MEDS: ASCORBIC ACID 500 MG TABLET PO SCH (07:37)
[2018-05-20] MEDS: LINACLOTIDE 145 MCG CAPSULE. PO SCH (07:37)
[2018-05-20] MEDS: PRAVASTATIN 20 MG TABLET. PO SCH (07:37)
[2018-05-20] MEDS: LACTOBACILLUS RHAMNOSUS GG 1 CAPSULE. PO SCH ×2 (07:37→19:46)
[2018-05-20] MEDS: LACTULOSE 20 GM/30 ML SOLUTION. PO SCH (07:37)
[2018-05-20] MEDS: DOCUSATE SODIUM 100 MG CAPSULE PO SCH ×2 (07:38→19:46)
[2018-05-20] MEDS: ASPIRIN ENTERIC COATED 81 MG TABLET.DR. PO SCH (07:38)
[2018-05-20] MEDS: SERTRALINE 25 MG TABLET. PO SCH (07:38)
[2018-05-20] MEDS: MEMANTINE 10 MG TABLET. PO SCH ×2 (07:38→16:50)
[2018-05-20] MEDS: AMOXICILLIN/K CLAV 875/125MG TABLET. PO SCH ×2 (07:38→19:47)
[2018-05-20] MEDS: FLUTICASONE 50MCG/NASAL SPRAY 16GM BOTTLE. NS SCH (07:39)
[2018-05-20] MEDS: MULTIVITAMIN with MINERAL TABLET. PO SCH (07:39)
[2018-05-20] MEDS: NYSTATIN TOPICAL POWDER 15GM BOTTLE. TP SCH ×2 (07:39→19:48)
[2018-05-20] MEDS: metFORMIN XR 500 MG TAB.ER.24H PO SCH (07:39)
[2018-05-20] MEDS: MAGNESIUM OXIDE 400 MG TABLET PO SCH ×2 (07:39→19:46)
--- NOTE | 2018-05-20 10:05 | PDOC ---
Exam Note: Сергей Note: Late entry for DOS 05/19/2018. Please also refer to the separate dictated note~ for this date of service dictated separately.~Patient seen individually. Discussed the patient with Nursing staff reviewed the chart.~Reviewed interim history and current functioning. Reviewed vital signs,~Labs/ Radiology~and current medications noted below. Continue current treatment with the changes noted in the dictated addendum note Assessment: Vital Signs: VS - Last 72 Hours, by Label Date Time Temp Pulse Resp B/P (MAP) Pulse Ox O2 Delivery O2 Flow Rate FiO2 05/20/18 06:06 95 Room Air 05/20/18 05:45 97.5 56 20 150/84 (106) 96 05/19/18 21:05 94 Room Air 05/19/18 15:44 97.0 72 20 142/93 (109) 96 05/19/18 15:43 97 Room Air 05/19/18 10:01 95 Room Air 05/19/18 05:46 97.7 52 22 144/73 (96) 97 05/19/18 05:20 97 Room Air 05/18/18 20:20 95 Room Air 05/18/18 15:48 97.5 67 20 134/88 (103) 94 Room Air 05/18/18 15:28 95 Room Air 05/18/18 09:42 93 Room Air 05/18/18 05:53 97.4 51 20 149/69 (95) 97 05/18/18 05:15 95 Room Air 05/17/18 19:54 94 Room Air 05/17/18 16:10 95 Room Air 05/17/18 15:56 97.8 64 20 139/94 (109) 96 Room Air 05/17/18 10:09 96 Room Air Vital Signs Date Time Temp Pulse Resp B/P (MAP) Pulse Ox O2 Delivery O2 Flow Rate FiO2 05/20/18 06:06 95 Room Air 05/20/18 05:45 97.5 56 20 150/84 (106) I&O Intake and Output 05/20/18 07:00 Intake Total 1440 ml Output Total 2200 ml Balance -760 ml Intake Oral 1440 ml Output Urine Total 2200 ml Current Medications: Meds: Current Medications Acetaminophen (Tylenol) 650 mg PRN Q6HRS PRN PO PAIN / TEMP Last administered on 05/12/18at 15:11; Start 05/10/18 at 17:45 Albuterol Sulfate (Ventolin) 2.5 mg PRN Q4HRS PRN NEB COUGH; Start 05/10/18 at 17:45 Ascorbic Acid (Vitamin C) 500 mg DAILY PO Last administered on 05/20/18at 07:37 ; Start 05/11/18 at 09:00 Throat Lozenges (Cepacol Sore Throat Lozenge) 1 osito PRN Q2HR PRN MM COUGH Last administered on 05/15/18at 15:05; Start 05/10/18 at 17:45 Carbidopa/Levodopa (Sinemet 25/100) 0.5 tab Q2HR W/A PO Last administered on 05/20/18 07:40; Start 05/10/18 at 18:00 Vitamin D (Vitamin D3) 50,000 unit WEEKLY PO Last administered on 05/17/18 08 :47; Start 05/17/18 at 09:00 Diclofenac Sodium (Voltaren) 1 juan PRN TID PRN TP MUSCLE PAIN; Start 05/10/18 at 17:45 Ferrous Sulfate (Feosol) 650 mg DAILY06 PO Last administered on 05/20/18at 04:59 ; Start 05/11/18 at 06:00 Guaifenesin (Mucinex Er) 600 mg BID PO Last administered on 05/20/18at 07:39; Start 05/10/18 at 21:00 Ibuprofen (Motrin) 600 mg PRN BID PRN PO INFLAMMATION PAIN Last administered on 05/13/18at 16:19; Start 05/10/18 at 17:45 Ipratropium [place] (Atrovent) 0.5 mg RTQID NEB Last administered on 05/20/18at 06:02; Start 05/10/18 at 20:00 Linaclotide (Linzess) 145 mcg DAILY PO Last administered on 05/20/18 07:37; Start 05/11/18 at 09:00 Al Hydroxide/Mg Hydroxide (Mylanta Plus Xs) 15 ml PRN AFTMEALHC PRN PO DYSPEPSIA; Start 05/10/18 at 17:45 Multi-Ingredient Ointment (Analgesic [place]) 1 juan QID PRN TP MUSCLE PAIN; Start 05/10/18 at 17:45 Nystatin (Nystop) 1 juan BID TP Last administered on 05/20/18 07:39; Start at 21:00 Olanzapine (ZyPREXA ZYDIS) 5 mg PRN Q2HR PRN PO ANXIETY / AGITATION Last administered on 05/13/18at 23:10; Start 05/10/18 at 17:45 Amoxicillin/ Clavulanate Potassium (Augmentin 875/ 125mg) 1 tab BID PO Last administered on 05/20/18 07:38; Start 05/10/18 at 21:00 Aspirin (Aspirin Enteric Coated) 81 mg DAILYWBKFT PO Last administered on 07:38; Start 05/11/18 at 08:00 Benzonatate (Tessalon Perle) 100 mg [id number] PO Last administered on 05/17/18 14:04; Start 05/10/18 at 21:00; Stop 05/17/18 at 14:52; Status DC Carbidopa/Levodopa (Sinemet Cr) 1 tab.sa QHS PO Last administered on 05/19/18 20:25; Start 05/10/18 at 21:00 Diazepam (Valium) 2 mg PRN Q6HRS PRN PO ANXIETY / AGITATION Last administered on 05/11/18 08:41; Start 05/10/18 at 18:00; Stop 05/11/18 at 18:16; Status DC Divalproex Sodium (Depakote) 1,500 mg QHS PO Last administered on 05/19/18 20: 24; Start 05/10/18 at 21:00 Docusate Sodium (Colace) 100 mg BID PO Last administered on 05/20/18 07:38; Start 05/10/18 at 21:00 Fluticasone Propionate (Flonase) 2 spray DAILY NS Last administered on 07:39; Start 05/11/18 at 09:00 Hydrocortisone (Cortaid) 1 juan PRN BID PRN TP RASH; Start 05/10/18 at 19:15 Lactobacillus Rhamnosus (Culturelle) 1 cap BID PO Last administered on 07:37; Start 05/10/18 at 21:00 Lactulose (Lactulose) 15 gm DAILYWBKFT PO Last administered on 05/20/18at 07:37 ; Start 05/11/18 at 08:00 Magnesium Hydroxide (Milk Of Magnesia) 2,400 mg PRN QHS PRN PO CONSTIPATION; Start 05/10/18 at 18:30 Magnesium Oxide (Magnesium Oxide) 400 mg BID PO Last administered on 05/20/18 07:39; Start 05/10/18 at 21:00 Melatonin 3 mg QHS PO Last administered on 05/19/18 20:25; Start 05/10/18 at 21:00 Memantine (Namenda) 10 mg BIDWMEALS PO Last administered on 05/20/18 07:38; Start 05/10/18 at 18:30 Metformin HCl (Glucophage Xr) 1,000 mg DAILYWBKFT PO Last administered on 07:39; Start 05/11/18 at 08:00 Miconazole Nitrate (Monistat-Derm) 1 juan PRN BID PRN TP RASH; Start 05/10/18 at 21:00 Multivitamins/ Calcium (Thera-M Plus) 1 tab DAILY PO Last administered on 07:39; Start 05/11/18 at 09:00 Pramipexole Dihydrochloride (miraPEX) 0.5 mg QHS PO Last administered on 20:25; Start 05/10/18 at 21:00 Pravastatin Sodium (Pravachol) 40 mg DAILY PO Last administered on 05/20/18 07 :37; Start 05/11/18 at 09:00 Quetiapine Fumarate (SEROquel) 200 mg QHS PO Last administered on 05/19/18 20: 26; Start 05/10/18 at 21:00 Rivastigmine (Exelon) 1 patch DAILY TD Last administered on 05/15/18 08:04; Start 05/11/18 at 09:00; Stop 05/15/18 at 12:34; Status DC Sertraline HCl (Zoloft) 75 mg DAILY PO Last administered on 05/20/18 07:38; Start 05/11/18 at 09:00 Trazodone HCl (Desyrel) 25 mg DAILYWSUP PO Last administered on 05/19/18 16:46 ; Start 05/10/18 at 18:30 Trazodone HCl (Desyrel) 100 mg PRN QHS PRN PO INSOMNIA Last administered on 05/19/18at 23:02; Start 05/10/18 at 18:00 Trazodone HCl (Desyrel) 150 mg QHS PO Last administered on 05/19/18at 20:24; Start 05/10/18 at 21:00 Acetaminophen (Tylenol) 650 mg PRN Q6HRS PRN PO PAIN / TEMP; Start 05/10/18 at 18:15; Status UNV Multi-Ingredient Ointment (Analgesic [place]) 1 juan PRN QID PRN TP MUSCLE PAIN; Start 05/10/18 at 18:15; Status UNV Al Hydroxide/Mg Hydroxide (Mylanta Plus Xs) 15 ml PRN AFTMEALHC PRN PO DYSPEPSIA; Start 05/10/18 at 18:15; Status UNV Magnesium Hydroxide (Milk Of Magnesia) 2,400 mg PRN QHS PRN PO CONSTIPATION; Start 05/10/18 at 18:15; Status UNV Alprazolam (Xanax) 0.5 mg PRN Q6HRS PRN PO ANXIETY / AGITATION Last administered on 05/17/18at 21:09; Start 05/11/18 at 18:15 Rivastigmine (Exelon 13.3mg) 1 patch DAILY TD Last administered on 05/20/18at 07 :36; Start 05/16/18 at 09:00 Risperidone (RisperDAL) 0.5 mg HS PO Last administered on 05/19/18at 20:25; Start 05/17/18 at 21:00 Active Scripts Active Reported Neomycin Sulfate 500 Mg Tablet 1 Juan PO DAILY Augmentin 875-125 Tablet (Amoxicillin/Potassium Clav) 1 Each Tablet 1 Each PO BID 5 Days Albuterol Sulfate Neb Soln (Albuterol Sulfate) 2.5 Mg/3 Ml Vial.neb 2.5 Mg PRN Q4HRS PRN EXELON 9.5mg/24hr (Rivastigmine) 1 Each Patch.td24 1 Patch TD DAILY Trazodone Hcl 150 Mg Tablet 150 Mg PO HS Trazodone Hcl 100 Mg Tablet 100 Mg PO PRN QHS PRN Guaifenesin 600 Mg Tablet.er 600 Mg PO BID Zoloft (Sertraline Hcl) 25 Mg Tablet 75 Mg PO DAILY Seroquel (Quetiapine Fumarate) 200 Mg Tablet 200 Mg PO HS Ipratropium [place] 0.2 Mg/1 Ml Solution 1 Vial NEB QID Benzonatate 100 Mg Capsule 100 Mg PO TID Cepacol Sore Throat Lozenge (Benzocaine/Menthol) 1 Each Lozenge 1 Each MM PRN Q2HR PRN Mag-Al Plus Xs Suspension (Mag Hydrox/Al Hydrox/Simeth) 30 Ml Oral.susp 15 Ml PO PRN AFTMEALHC PRN Lactulose 10 Gm/15 Ml Solution 15 Gm PO DAILYWBKFT Zyprexa Zydis (Olanzapine) 5 Mg Tab.rapdis 5 Mg PO PRN Q2HR PRN Analgesic [place] (Methyl Salicylate/Menthol) 28 Gm Oint...g. 1 Juan TP QID PRN Namenda (Memantine Hcl) 10 Mg Tablet 1 Tab PO BIDWMEALS Melatonin 3 Mg Tablet 1 Tab PO QHS Culturelle (Lactobacillus Rhamnosus Gg) 1 Each Capsule 1 Each PO BID Glucophage Xr (Metformin Hcl) 500 Mg Tab.er.24h 2 Tab PO DAILYWBKFT Nystatin 15 Gm Powder 1 Juan TP BID Milk Of Magnesia (Magnesium Hydroxide) 2,400 Mg/10 Ml Oral.susp 2,400 Mg PO HS PRN Voltaren (Diclofenac Sodium) 100 Gm Gel..gram. 1 Juan TP PRN TID PRN FOR NECK PAIN Vitamin D3 (Cholecalciferol (Vitamin D3)) 50,000 Unit Capsule 50,000 Unit PO WEEKLY Tylenol (Acetaminophen) 325 Mg Tablet 2 Tab PO PRN Q6HRS PRN Pravastatin Sodium 40 Mg Tablet 40 Mg PO DAILY Carbidopa-Levo Er 50-200 Tab (Carbidopa/Levodopa) 1 Each Tablet.er 1 Each PO HS Sinemet 25-100 Mg Tablet (Carbidopa/Levodopa) 1 Each Tablet 0.5 Tab PO Q2HR W/A Diazepam 2 Mg Tablet 2 Mg PO PRN Q6HRS PRN Mirapex (Pramipexole Di-Hcl) 0.25 Mg Tablet 0.5 Mg PO HS Linzess (Linaclotide) 145 Mcg Capsule 145 Mcg PO DAILY Divalproex Sodium 500 Mg Tablet.dr 1,500 Mg PO HS Hydrocortisone 453.6 Gm Cream..g. 1 Juan TP PRN BID PRN Ferrous Sulfate 325 Mg Tablet 650 Mg PO DAILY06 Magnesium Oxide 400 Mg Tablet 400 Mg PO BID Miconazole Nitrate 45 Gm Cream.appl 1 Juan TP PRN BID PRN Aspirin 81 Mg Tab.chew 81 Mg PO DAILY Ibuprofen 400 Mg Tablet 600 Mg PO PRN BID PRN Docusate Sodium 100 Mg Capsule 100 Mg PO BID Fluticasone Propionate Nasal [place] (Fluticasone Propionate) 16 Gm [place].susp 2 [place] NS DAILY Multivitamins (Multivitamin) 1 Each Tablet 1 Tab PO DAILY Trazodone Hcl 50 Mg Tablet 25 Mg PO DAILYWSUP Ascorbic Acid 500 Mg Tablet 500 Mg PO DAILY I have reviewed the current psychotropics carefully including drug interactions. Risk benefit ratio favors no change other than as noted in my dictated progress note. Diagnosis: Problems: (1) Healthcare-associated pneumonia (2) Acute respiratory failure with hypoxia (3) Acute and chronic respiratory failure with hypoxia (4) Anxiety disorder (5) Lewy body dementia with behavioral disturbance (6) Impulse control disorder (7) Personality disorder in adult SAY PRUETT MD May 20, 2018 10:05
[2018-05-20 16:07] VITALS: BP 122/82
[2018-05-20] MEDS: traZODone 50 MG TABLET. PO SCH (16:50)
[2018-05-20] MEDS: QUEtiapine 100 MG TABLET. PO SCH (19:46)
[2018-05-20] MEDS: risperiDONE 0.5 MG TABLET. PO SCH (19:46)
[2018-05-20] MEDS: traZODone 150 MG TABLET. PO SCH (19:47)
[2018-05-20] MEDS: CARBIDOPA/LEVODOPA CR 50/200MG TABLET.SA PO SCH (19:47)
[2018-05-20] MEDS: DIVALPROEX SODIUM 250 MG TABLET.DR. PO SCH (19:47)
[2018-05-20] MEDS: MELATONIN 3 MG TABLET PO SCH (19:48)
[2018-05-20] MEDS: PRAMIPEXOLE 0.5 MG TABLET. PO SCH (19:48)
--- NOTE | 2018-05-20 21:50 | PN ---
DATE: 05/19/2018 PSYCHIATRIC PROGRESS NOTE This late entry 05/19/2018 covers elements not covered in my initial note. SUBJECTIVE: I met with the patient in the evening. The patient slept 4-3/4 hours previous night. He has had a good day, per nursing report, less anxious, labile, not throwing himself on the floor. He played the card game [employer] and we, nursing staff will evaluate need to continue one-on-one, all we will discontinue in morning of 05/20/2018. REVIEW OF SYSTEMS: Ambulation impaired, in wheelchair. No CV, , pulmonary, eye, ENT system symptoms on review. He has vague somatic symptoms. MENTAL STATUS EXAM: Oriented to himself and situation. Speech is coherent, less pressured. Abstraction fair, computation impaired, language function is intact, attention span short. Mood and affect, lability has improved. LABORATORY DATA: Reviewed. IMPRESSION: Bipolar 1 disorder, mixed with psychotic features, in partial remission; Lewy body dementia; impulse control disorder; anxiety disorder, unspecified. PLAN: Valproic acid level therapeutic at 68. Continue current psychotropics, unchanged including Risperdal 0.5 mg at bedtime. We may need to increase this in due course. Placement is being secured per social service staff. SAY PRUETT MD DR: MARCEL/nano JOB#: [id number] / [id number]
--- NOTE | 2018-05-20 22:41 | PDOC ---
Exam Note: Сергей Note: Please also refer to the separate dictated note~for this date of service dictated separately.~Patient seen individually. Discussed the patient with Nursing staff reviewed the chart.~Reviewed interim history and current functioning. Reviewed vital signs,~Labs/ Radiology~and current medications noted below. Continue current treatment with the changes noted in the dictated addendum note Assessment: Vital Signs: Vital Signs Date Time Temp Pulse Resp B/P (MAP) Pulse Ox O2 Delivery O2 Flow Rate FiO2 05/20/18 20:26 98 Room Air 05/20/18 16:07 98.3 72 20 122/82 (95) I&O Intake and Output 05/20/18 07:00 Intake Total 1440 ml Output Total 2200 ml Balance -760 ml Intake Oral 1440 ml Output Urine Total 2200 ml Current Medications: Meds: Current Medications Acetaminophen (Tylenol) 650 mg PRN Q6HRS PRN PO PAIN / TEMP Last administered on 05/12/18at 15:11; Start 05/10/18 at 17:45 Albuterol Sulfate (Ventolin) 2.5 mg PRN Q4HRS PRN NEB COUGH; Start 05/10/18 at 17:45 Ascorbic Acid (Vitamin C) 500 mg DAILY PO Last administered on 05/20/18at 07:37 ; Start 05/11/18 at 09:00 Throat Lozenges (Cepacol Sore Throat Lozenge) 1 osito PRN Q2HR PRN MM COUGH Last administered on 05/15/18at 15:05; Start 05/10/18 at 17:45 Carbidopa/Levodopa (Sinemet 25/100) 0.5 tab Q2HR W/A PO Last administered on 05/20/18at 22:00; Start 05/10/18 at 18:00 Vitamin D (Vitamin D3) 50,000 unit WEEKLY PO Last administered on 05/17/18at 08 :47; Start 05/17/18 at 09:00 Diclofenac Sodium (Voltaren) 1 juan PRN TID PRN TP MUSCLE PAIN; Start 05/10/18 at 17:45 Ferrous Sulfate (Feosol) 650 mg DAILY06 PO Last administered on 05/20/18at 04:59 ; Start 05/11/18 at 06:00 Guaifenesin (Mucinex Er) 600 mg BID PO Last administered on 05/20/18at 19:47; Start 05/10/18 at 21:00 Ibuprofen (Motrin) 600 mg PRN BID PRN PO INFLAMMATION PAIN Last administered on 05/13/18 16:19; Start 05/10/18 at 17:45 Ipratropium [place] (Atrovent) 0.5 mg RTQID NEB Last administered on 05/20/18 20:24; Start 05/10/18 at 20:00 Linaclotide (Linzess) 145 mcg DAILY PO Last administered on 05/20/18 07:37; Start 05/11/18 at 09:00 Al Hydroxide/Mg Hydroxide (Mylanta Plus Xs) 15 ml PRN AFTMEALHC PRN PO DYSPEPSIA; Start 05/10/18 at 17:45 Multi-Ingredient Ointment (Analgesic [place]) 1 juan QID PRN TP MUSCLE PAIN; Start 05/10/18 at 17:45 Nystatin (Nystop) 1 juan BID TP Last administered on 05/20/18 19:48; Start at 21:00 Olanzapine (ZyPREXA ZYDIS) 5 mg PRN Q2HR PRN PO ANXIETY / AGITATION Last administered on 05/13/18 23:10; Start 05/10/18 at 17:45 Amoxicillin/ Clavulanate Potassium (Augmentin 875/ 125mg) 1 tab BID PO Last administered on 05/20/18 19:47; Start 05/10/18 at 21:00 Aspirin (Aspirin Enteric Coated) 81 mg DAILYWBKFT PO Last administered on 07:38; Start 05/11/18 at 08:00 Benzonatate (Tessalon Perle) 100 mg [id number] PO Last administered on 05/17/18 14:04; Start 05/10/18 at 21:00; Stop 05/17/18 at 14:52; Status DC Carbidopa/Levodopa (Sinemet Cr) 1 tab.sa QHS PO Last administered on 05/20/18 19:47; Start 05/10/18 at 21:00 Diazepam (Valium) 2 mg PRN Q6HRS PRN PO ANXIETY / AGITATION Last administered on 05/11/18at 08:41; Start 05/10/18 at 18:00; Stop 05/11/18 at 18:16; Status DC Divalproex Sodium (Depakote) 1,500 mg QHS PO Last administered on 05/20/18 19: 47; Start 05/10/18 at 21:00 Docusate Sodium (Colace) 100 mg BID PO Last administered on 05/20/18 19:46; Start 05/10/18 at 21:00 Fluticasone Propionate (Flonase) 2 spray DAILY NS Last administered on 07:39; Start 05/11/18 at 09:00 Hydrocortisone (Cortaid) 1 juan PRN BID PRN TP RASH; Start 05/10/18 at 19:15 Lactobacillus Rhamnosus (Culturelle) 1 cap BID PO Last administered on 19:46; Start 05/10/18 at 21:00 Lactulose (Lactulose) 15 gm DAILYWBKFT PO Last administered on 05/20/18 07:37 ; Start 05/11/18 at 08:00 Magnesium Hydroxide (Milk Of Magnesia) 2,400 mg PRN QHS PRN PO CONSTIPATION; Start 05/10/18 at 18:30 Magnesium Oxide (Magnesium Oxide) 400 mg BID PO Last administered on 05/20/18 19:46; Start 05/10/18 at 21:00 Melatonin 3 mg QHS PO Last administered on 05/20/18 19:48; Start 05/10/18 at 21:00 Memantine (Namenda) 10 mg BIDWMEALS PO Last administered on 05/20/18 16:50; Start 05/10/18 at 18:30 Metformin HCl (Glucophage Xr) 1,000 mg DAILYWBKFT PO Last administered on 07:39; Start 05/11/18 at 08:00 Miconazole Nitrate (Monistat-Derm) 1 juan PRN BID PRN TP RASH; Start 05/10/18 at 21:00 Multivitamins/ Calcium (Thera-M Plus) 1 tab DAILY PO Last administered on 07:39; Start 05/11/18 at 09:00 Pramipexole Dihydrochloride (miraPEX) 0.5 mg QHS PO Last administered on 19:48; Start 05/10/18 at 21:00 Pravastatin Sodium (Pravachol) 40 mg DAILY PO Last administered on 05/20/18 07 :37; Start 05/11/18 at 09:00 Quetiapine Fumarate (SEROquel) 200 mg QHS PO Last administered on 05/20/18 19: 46; Start 05/10/18 at 21:00 Rivastigmine (Exelon) 1 patch DAILY TD Last administered on 05/15/18 08:04; Start 05/11/18 at 09:00; Stop 05/15/18 at 12:34; Status DC Sertraline HCl (Zoloft) 75 mg DAILY PO Last administered on 05/20/18 07:38; Start 05/11/18 at 09:00 Trazodone HCl (Desyrel) 25 mg DAILYWSUP PO Last administered on 05/20/18 16:50 ; Start 05/10/18 at 18:30 Trazodone HCl (Desyrel) 100 mg PRN QHS PRN PO INSOMNIA Last administered on 23:02; Start 05/10/18 at 18:00 Trazodone HCl (Desyrel) 150 mg QHS PO Last administered on 05/20/18 19:47; Start 05/10/18 at 21:00 Acetaminophen (Tylenol) 650 mg PRN Q6HRS PRN PO PAIN / TEMP; Start 05/10/18 at 18:15; Status UNV Multi-Ingredient Ointment (Analgesic [place]) 1 juan PRN QID PRN TP MUSCLE PAIN; Start 05/10/18 at 18:15; Status UNV Al Hydroxide/Mg Hydroxide (Mylanta Plus Xs) 15 ml PRN AFTMEALHC PRN PO DYSPEPSIA; Start 05/10/18 at 18:15; Status UNV Magnesium Hydroxide (Milk Of Magnesia) 2,400 mg PRN QHS PRN PO CONSTIPATION; Start 05/10/18 at 18:15; Status UNV Alprazolam (Xanax) 0.5 mg PRN Q6HRS PRN PO ANXIETY / AGITATION Last administered on 05/17/18at 21:09; Start 05/11/18 at 18:15 Rivastigmine (Exelon 13.3mg) 1 patch DAILY TD Last administered on 05/20/18 07 :36; Start 05/16/18 at 09:00 Risperidone (RisperDAL) 0.5 mg HS PO Last administered on 05/20/18at 19:46; Start 05/17/18 at 21:00 Active Scripts Active Reported Neomycin Sulfate 500 Mg Tablet 1 Juan PO DAILY Augmentin 875-125 Tablet (Amoxicillin/Potassium Clav) 1 Each Tablet 1 Each PO BID 5 Days Albuterol Sulfate Neb Soln (Albuterol Sulfate) 2.5 Mg/3 Ml Vial.neb 2.5 Mg PRN Q4HRS PRN EXELON 9.5mg/24hr (Rivastigmine) 1 Each Patch.td24 1 Patch TD DAILY Trazodone Hcl 150 Mg Tablet 150 Mg PO HS Trazodone Hcl 100 Mg Tablet 100 Mg PO PRN QHS PRN Guaifenesin 600 Mg Tablet.er 600 Mg PO BID Zoloft (Sertraline Hcl) 25 Mg Tablet 75 Mg PO DAILY Seroquel (Quetiapine Fumarate) 200 Mg Tablet 200 Mg PO HS Ipratropium [place] 0.2 Mg/1 Ml Solution 1 Vial NEB QID Benzonatate 100 Mg Capsule 100 Mg PO TID Cepacol Sore Throat Lozenge (Benzocaine/Menthol) 1 Each Lozenge 1 Each MM PRN Q2HR PRN Mag-Al Plus Xs Suspension (Mag Hydrox/Al Hydrox/Simeth) 30 Ml Oral.susp 15 Ml PO PRN AFTMEALHC PRN Lactulose 10 Gm/15 Ml Solution 15 Gm PO DAILYWBKFT Zyprexa Zydis (Olanzapine) 5 Mg Tab.rapdis 5 Mg PO PRN Q2HR PRN Analgesic [place] (Methyl Salicylate/Menthol) 28 Gm Oint...g. 1 Juan TP QID PRN Namenda (Memantine Hcl) 10 Mg Tablet 1 Tab PO BIDWMEALS Melatonin 3 Mg Tablet 1 Tab PO QHS Culturelle (Lactobacillus Rhamnosus Gg) 1 Each Capsule 1 Each PO BID Glucophage Xr (Metformin Hcl) 500 Mg Tab.er.24h 2 Tab PO DAILYWBKFT Nystatin 15 Gm Powder 1 Juan TP BID Milk Of Magnesia (Magnesium Hydroxide) 2,400 Mg/10 Ml Oral.susp 2,400 Mg PO HS PRN Voltaren (Diclofenac Sodium) 100 Gm Gel..gram. 1 Juan TP PRN TID PRN FOR NECK PAIN Vitamin D3 (Cholecalciferol (Vitamin D3)) 50,000 Unit Capsule 50,000 Unit PO WEEKLY Tylenol (Acetaminophen) 325 Mg Tablet 2 Tab PO PRN Q6HRS PRN Pravastatin Sodium 40 Mg Tablet 40 Mg PO DAILY Carbidopa-Levo Er 50-200 Tab (Carbidopa/Levodopa) 1 Each Tablet.er 1 Each PO HS Sinemet 25-100 Mg Tablet (Carbidopa/Levodopa) 1 Each Tablet 0.5 Tab PO Q2HR W/A Diazepam 2 Mg Tablet 2 Mg PO PRN Q6HRS PRN Mirapex (Pramipexole Di-Hcl) 0.25 Mg Tablet 0.5 Mg PO HS Linzess (Linaclotide) 145 Mcg Capsule 145 Mcg PO DAILY Divalproex Sodium 500 Mg Tablet.dr 1,500 Mg PO HS Hydrocortisone 453.6 Gm Cream..g. 1 Juan TP PRN BID PRN Ferrous Sulfate 325 Mg Tablet 650 Mg PO DAILY06 Magnesium Oxide 400 Mg Tablet 400 Mg PO BID Miconazole Nitrate 45 Gm Cream.appl 1 Juan TP PRN BID PRN Aspirin 81 Mg Tab.chew 81 Mg PO DAILY Ibuprofen 400 Mg Tablet 600 Mg PO PRN BID PRN Docusate Sodium 100 Mg Capsule 100 Mg PO BID Fluticasone Propionate Nasal [place] (Fluticasone Propionate) 16 Gm [place].susp 2 [place] NS DAILY Multivitamins (Multivitamin) 1 Each Tablet 1 Tab PO DAILY Trazodone Hcl 50 Mg Tablet 25 Mg PO DAILYWSUP Ascorbic Acid 500 Mg Tablet 500 Mg PO DAILY I have reviewed the current psychotropics carefully including drug interactions. Risk benefit ratio favors no change other than as noted in my dictated progress note. Diagnosis: Problems: (1) Healthcare-associated pneumonia (2) Acute respiratory failure with hypoxia (3) Acute and chronic respiratory failure with hypoxia (4) Anxiety disorder (5) Lewy body dementia with behavioral disturbance (6) Impulse control disorder (7) Personality disorder in adult SAY PRUETT MD May 20, 2018 22:41
[2018-05-21] MEDS: IPRATROPIUM BROMIDE 0.5 MG/2.5 ML NEBU. NEB SCH ×4 (05:09→20:18)
[2018-05-21] MEDS: CARBIDOPA/LEVODOPA 25/100MG TABLET PO SCH ×9 (05:10→22:00)
[2018-05-21] MEDS: FERROUS SULFATE 325 MG TABLET. PO SCH (05:10)
[2018-05-21 05:58] VITALS: BP 121/73
[2018-05-21] MEDS: LACTOBACILLUS RHAMNOSUS GG 1 CAPSULE. PO SCH ×2 (08:07→19:07)
[2018-05-21] MEDS: PRAVASTATIN 20 MG TABLET. PO SCH (08:07)
[2018-05-21] MEDS: DOCUSATE SODIUM 100 MG CAPSULE PO SCH ×2 (08:07→19:07)
[2018-05-21] MEDS: AMOXICILLIN/K CLAV 875/125MG TABLET. PO SCH (08:07)
[2018-05-21] MEDS: LINACLOTIDE 145 MCG CAPSULE. PO SCH (08:07)
[2018-05-21] MEDS: metFORMIN XR 500 MG TAB.ER.24H PO SCH (08:07)
[2018-05-21] MEDS: MAGNESIUM OXIDE 400 MG TABLET PO SCH ×2 (08:08→19:08)
[2018-05-21] MEDS: SERTRALINE 25 MG TABLET. PO SCH (08:08)
[2018-05-21] MEDS: ASCORBIC ACID 500 MG TABLET PO SCH (08:08)
[2018-05-21] MEDS: ASPIRIN ENTERIC COATED 81 MG TABLET.DR. PO SCH (08:08)
[2018-05-21] MEDS: MEMANTINE 10 MG TABLET. PO SCH ×2 (08:09→15:55)
[2018-05-21] MEDS: MULTIVITAMIN with MINERAL TABLET. PO SCH (08:09)
[2018-05-21] MEDS: LACTULOSE 20 GM/30 ML SOLUTION. PO SCH (08:10)
[2018-05-21] MEDS: RIVASTIGMINE 13.3MG PATCH. TD SCH (08:10)
[2018-05-21] MEDS: NYSTATIN TOPICAL POWDER 15GM BOTTLE. TP SCH ×2 (08:11→19:08)
[2018-05-21] MEDS: FLUTICASONE 50MCG/NASAL SPRAY 16GM BOTTLE. NS SCH (08:12)
[2018-05-21] MEDS: traZODone 50 MG TABLET. PO SCH (15:55)
[2018-05-21 16:17] VITALS: BP 143/97
[2018-05-21] MEDS: MELATONIN 3 MG TABLET PO SCH (19:07)
[2018-05-21] MEDS: DIVALPROEX SODIUM 250 MG TABLET.DR. PO SCH (19:07)
[2018-05-21] MEDS: CARBIDOPA/LEVODOPA CR 50/200MG TABLET.SA PO SCH (19:08)
[2018-05-21] MEDS: risperiDONE 0.5 MG TABLET. PO SCH (19:08)
[2018-05-21] MEDS: PRAMIPEXOLE 0.5 MG TABLET. PO SCH (19:08)
[2018-05-21] MEDS: QUEtiapine 100 MG TABLET. PO SCH (19:08)
[2018-05-21] MEDS: traZODone 100 MG TABLET. PO SCH (19:34)
[2018-05-21] MEDS: ACETAMINOPHEN 325 MG TABLET PO PRN (20:00)
[2018-05-21] MEDS: BENZOCAINE/MENTHOL LOZNGE 18'S BOX. MM PRN (20:00)
--- NOTE | 2018-05-21 20:44 | PN ---
DATE: 05/20/2018 PSYCHIATRIC PROGRESS NOTE This late entry 05/20/2018 covers elements not covered in my initial note. SUBJECTIVE: I met with the patient in the evening. The patient slept 4 hours previous night. Previous evening, he was somewhat irritable with nursing staff blaming them for things that were rather unreasonable, somewhat demanding, but much better during the day on 05/20/2018. REVIEW OF SYSTEMS: Ambulation impaired, in [place] chair. No CV, , pulmonary, eye, ENT system symptoms on review. MENTAL STATUS EXAM: The patient is reasonably oriented. Speech is coherent, less pressured. He appears much calmer. Abstraction fair, computation impaired, language function intact. Mood and affect less labile. LABORATORY DATA: Reviewed. I discussed with nursing staff and also with Debby, social economist, about gradually reducing the one-on-one status. IMPRESSION: Bipolar 1 disorder, mixed, in partial remission, Lewy body dementia, early anxiety disorder, unspecified; impulse control disorder. PLAN: No change from initial note. Possible transition to correction later this week. MAN Rosa PRUETT MD DR: MARCEL/nano JOB#: [id number] / [id number]
[2018-05-21] MEDS ORDERED: traZODone 100 MG TABLET. PO PRN (21:00)
--- NOTE | 2018-05-21 22:38 | PDOC ---
Exam Note: Сергей Note: Please also refer to the separate dictated note~for this date of service dictated separately.~Patient seen individually. Discussed the patient with Nursing staff reviewed the chart.~Reviewed interim history and current functioning. Reviewed vital signs,~Labs/ Radiology~and current medications noted below. Continue current treatment with the changes noted in the dictated addendum note Assessment: Vital Signs: Vital Signs Date Time Temp Pulse Resp B/P (MAP) Pulse Ox O2 Delivery O2 Flow Rate FiO2 05/21/18 20:00 95 Room Air 05/21/18 16:17 98.7 65 18 143/97 (112) I&O Intake and Output 05/21/18 07:00 Intake Total 1320 ml Balance 1320 ml Intake Oral 1320 ml # Bowel Movements 1 Current Medications: Meds: Current Medications Acetaminophen (Tylenol) 650 mg PRN Q6HRS PRN PO PAIN / TEMP Last administered on 05/21/18 20:00; Start 05/10/18 at 17:45 Albuterol Sulfate (Ventolin) 2.5 mg PRN Q4HRS PRN NEB COUGH; Start 05/10/18 at 17:45 Ascorbic Acid (Vitamin C) 500 mg DAILY PO Last administered on 05/21/18 08:08 ; Start 05/11/18 at 09:00 Throat Lozenges (Cepacol Sore Throat Lozenge) 1 osito PRN Q2HR PRN MM COUGH Last administered on 05/21/18 20:00; Start 05/10/18 at 17:45 Carbidopa/Levodopa (Sinemet 25/100) 0.5 tab Q2HR W/A PO Last administered on 05/21/18 18:25; Start 05/10/18 at 18:00 Vitamin D (Vitamin D3) 50,000 unit WEEKLY PO Last administered on 05/17/18at 08 :47; Start 05/17/18 at 09:00 Diclofenac Sodium (Voltaren) 1 juan PRN TID PRN TP MUSCLE PAIN; Start 05/10/18 at 17:45 Ferrous Sulfate (Feosol) 650 mg DAILY06 PO Last administered on 05/21/18 05:10 ; Start 05/11/18 at 06:00 Guaifenesin (Mucinex Er) 600 mg BID PO Last administered on 05/21/18at 08:09; Start 05/10/18 at 21:00; Stop 05/21/18 at 15:53; Status DC Ibuprofen (Motrin) 600 mg PRN BID PRN PO INFLAMMATION PAIN Last administered on 05/13/18 16:19; Start 05/10/18 at 17:45 Ipratropium [place] (Atrovent) 0.5 mg RTQID NEB Last administered on 05/21/18 20:18; Start 05/10/18 at 20:00 Linaclotide (Linzess) 145 mcg DAILY PO Last administered on 05/21/18 08:07; Start 05/11/18 at 09:00 Al Hydroxide/Mg Hydroxide (Mylanta Plus Xs) 15 ml PRN AFTMEALHC PRN PO DYSPEPSIA; Start 05/10/18 at 17:45 Multi-Ingredient Ointment (Analgesic [place]) 1 juan QID PRN TP MUSCLE PAIN; Start 05/10/18 at 17:45 Nystatin (Nystop) 1 juan BID TP Last administered on 05/21/18 19:08; Start at 21:00 Olanzapine (ZyPREXA ZYDIS) 5 mg PRN Q2HR PRN PO ANXIETY / AGITATION Last administered on 05/13/18at 23:10; Start 05/10/18 at 17:45 Amoxicillin/ Clavulanate Potassium (Augmentin 875/ 125mg) 1 tab BID PO Last administered on 05/21/18 08:07; Start 05/10/18 at 21:00; Stop 05/21/18 at 15: 52; Status DC Aspirin (Aspirin Enteric Coated) 81 mg DAILYWBKFT PO Last administered on at 08:08; Start 05/11/18 at 08:00 Benzonatate (Tessalon Perle) 100 mg WBP900 PO Last administered on 05/17/18at 14:04; Start 05/10/18 at 21:00; Stop 05/17/18 at 14:52; Status DC Carbidopa/Levodopa (Sinemet Cr) 1 tab.sa QHS PO Last administered on 05/21/18 19:08; Start 05/10/18 at 21:00 Diazepam (Valium) 2 mg PRN Q6HRS PRN PO ANXIETY / AGITATION Last administered on 05/11/18at 08:41; Start 05/10/18 at 18:00; Stop 05/11/18 at 18:16; Status DC Divalproex Sodium (Depakote) 1,500 mg QHS PO Last administered on 05/21/18 19: 07; Start 05/10/18 at 21:00 Docusate Sodium (Colace) 100 mg BID PO Last administered on 05/21/18 19:07; Start 05/10/18 at 21:00 Fluticasone Propionate (Flonase) 2 spray DAILY NS Last administered on 08:12; Start 05/11/18 at 09:00 Hydrocortisone (Cortaid) 1 juan PRN BID PRN TP RASH; Start 05/10/18 at 19:15 Lactobacillus Rhamnosus (Culturelle) 1 cap BID PO Last administered on 19:07; Start 05/10/18 at 21:00 Lactulose (Lactulose) 15 gm DAILYWBKFT PO Last administered on 05/21/18 08:10 ; Start 05/11/18 at 08:00 Magnesium Hydroxide (Milk Of Magnesia) 2,400 mg PRN QHS PRN PO CONSTIPATION; Start 05/10/18 at 18:30 Magnesium Oxide (Magnesium Oxide) 400 mg BID PO Last administered on 05/21/18 19:08; Start 05/10/18 at 21:00 Melatonin 3 mg QHS PO Last administered on 05/21/18 19:07; Start 05/10/18 at 21:00 Memantine (Namenda) 10 mg BIDWMEALS PO Last administered on 05/21/18at 15:55; Start 05/10/18 at 18:30 Metformin HCl (Glucophage Xr) 1,000 mg DAILYWBKFT PO Last administered on 08:07; Start 05/11/18 at 08:00 Miconazole Nitrate (Monistat-Derm) 1 juan PRN BID PRN TP RASH; Start 05/10/18 at 21:00 Multivitamins/ Calcium (Thera-M Plus) 1 tab DAILY PO Last administered on 08:09; Start 05/11/18 at 09:00 Pramipexole Dihydrochloride (miraPEX) 0.5 mg QHS PO Last administered on 19:08; Start 05/10/18 at 21:00 Pravastatin Sodium (Pravachol) 40 mg DAILY PO Last administered on 05/21/18 08 :07; Start 05/11/18 at 09:00 Quetiapine Fumarate (SEROquel) 200 mg QHS PO Last administered on 05/21/18 19: 08; Start 05/10/18 at 21:00 Rivastigmine (Exelon) 1 patch DAILY TD Last administered on 05/15/18at 08:04; Start 05/11/18 at 09:00; Stop 05/15/18 at 12:34; Status DC Sertraline HCl (Zoloft) 75 mg DAILY PO Last administered on 05/21/18 08:08; Start 05/11/18 at 09:00 Trazodone HCl (Desyrel) 25 mg DAILYWSUP PO Last administered on 05/21/18at 15:55 ; Start 05/10/18 at 18:30; Stop 05/21/18 at 16:34; Status DC Trazodone HCl (Desyrel) 100 mg PRN QHS PRN PO INSOMNIA Last administered on 23:02; Start 05/10/18 at 18:00; Stop 05/21/18 at 16:34; Status DC Trazodone HCl (Desyrel) 150 mg QHS PO Last administered on 05/20/18at 19:47; Start 05/10/18 at 21:00; Stop 05/21/18 at 16:34; Status DC Acetaminophen (Tylenol) 650 mg PRN Q6HRS PRN PO PAIN / TEMP; Start 05/10/18 at 18:15; Status UNV Multi-Ingredient Ointment (Analgesic [place]) 1 juan PRN QID PRN TP MUSCLE PAIN; Start 05/10/18 at 18:15; Status UNV Al Hydroxide/Mg Hydroxide (Mylanta Plus Xs) 15 ml PRN AFTMEALHC PRN PO DYSPEPSIA; Start 05/10/18 at 18:15; Status UNV Magnesium Hydroxide (Milk Of Magnesia) 2,400 mg PRN QHS PRN PO CONSTIPATION; Start 05/10/18 at 18:15; Status UNV Alprazolam (Xanax) 0.5 mg PRN Q6HRS PRN PO ANXIETY / AGITATION Last administered on 05/17/18at 21:09; Start 05/11/18 at 18:15 Rivastigmine (Exelon 13.3mg) 1 patch DAILY TD Last administered on 05/21/18at 08 :10; Start 05/16/18 at 09:00 Risperidone (RisperDAL) 0.5 mg HS PO Last administered on 05/21/18at 19:08; Start 05/17/18 at 21:00 Trazodone HCl (Desyrel) 200 mg PRN QHS PRN PO INSOMNIA; Start 05/21/18 at 21:00 Trazodone HCl (Desyrel) 200 mg QHS PO Last administered on 05/21/18at 19:34; Start 05/21/18 at 21:00 Active Scripts Active Reported Neomycin Sulfate 500 Mg Tablet 1 Juan PO DAILY Augmentin 875-125 Tablet (Amoxicillin/Potassium Clav) 1 Each Tablet 1 Each PO BID 5 Days Albuterol Sulfate Neb Soln (Albuterol Sulfate) 2.5 Mg/3 Ml Vial.neb 2.5 Mg PRN Q4HRS PRN EXELON 9.5mg/24hr (Rivastigmine) 1 Each Patch.td24 1 Patch TD DAILY Trazodone Hcl 150 Mg Tablet 150 Mg PO HS Trazodone Hcl 100 Mg Tablet 100 Mg PO PRN QHS PRN Guaifenesin 600 Mg Tablet.er 600 Mg PO BID Zoloft (Sertraline Hcl) 25 Mg Tablet 75 Mg PO DAILY Seroquel (Quetiapine Fumarate) 200 Mg Tablet 200 Mg PO HS Ipratropium [place] 0.2 Mg/1 Ml Solution 1 Vial NEB QID Benzonatate 100 Mg Capsule 100 Mg PO TID Cepacol Sore Throat Lozenge (Benzocaine/Menthol) 1 Each Lozenge 1 Each MM PRN Q2HR PRN Mag-Al Plus Xs Suspension (Mag Hydrox/Al Hydrox/Simeth) 30 Ml Oral.susp 15 Ml PO PRN AFTMEALHC PRN Lactulose 10 Gm/15 Ml Solution 15 Gm PO DAILYWBKFT Zyprexa Zydis (Olanzapine) 5 Mg Tab.rapdis 5 Mg PO PRN Q2HR PRN Analgesic [place] (Methyl Salicylate/Menthol) 28 Gm Oint...g. 1 Juan TP QID PRN Namenda (Memantine Hcl) 10 Mg Tablet 1 Tab PO BIDWMEALS Melatonin 3 Mg Tablet 1 Tab PO QHS Culturelle (Lactobacillus Rhamnosus Gg) 1 Each Capsule 1 Each PO BID Glucophage Xr (Metformin Hcl) 500 Mg Tab.er.24h 2 Tab PO DAILYWBKFT Nystatin 15 Gm Powder 1 Juan TP BID Milk Of Magnesia (Magnesium Hydroxide) 2,400 Mg/10 Ml Oral.susp 2,400 Mg PO HS PRN Voltaren (Diclofenac Sodium) 100 Gm Gel..gram. 1 Juan TP PRN TID PRN FOR NECK PAIN Vitamin D3 (Cholecalciferol (Vitamin D3)) 50,000 Unit Capsule 50,000 Unit PO WEEKLY Tylenol (Acetaminophen) 325 Mg Tablet 2 Tab PO PRN Q6HRS PRN Pravastatin Sodium 40 Mg Tablet 40 Mg PO DAILY Carbidopa-Levo Er 50-200 Tab (Carbidopa/Levodopa) 1 Each Tablet.er 1 Each PO HS Sinemet 25-100 Mg Tablet (Carbidopa/Levodopa) 1 Each Tablet 0.5 Tab PO Q2HR W/A Diazepam 2 Mg Tablet 2 Mg PO PRN Q6HRS PRN Mirapex (Pramipexole Di-Hcl) 0.25 Mg Tablet 0.5 Mg PO HS Linzess (Linaclotide) 145 Mcg Capsule 145 Mcg PO DAILY Divalproex Sodium 500 Mg Tablet.dr 1,500 Mg PO HS Hydrocortisone 453.6 Gm Cream..g. 1 Juan TP PRN BID PRN Ferrous Sulfate 325 Mg Tablet 650 Mg PO DAILY06 Magnesium Oxide 400 Mg Tablet 400 Mg PO BID Miconazole Nitrate 45 Gm Cream.appl 1 Juan TP PRN BID PRN Aspirin 81 Mg Tab.chew 81 Mg PO DAILY Ibuprofen 400 Mg Tablet 600 Mg PO PRN BID PRN Docusate Sodium 100 Mg Capsule 100 Mg PO BID Fluticasone Propionate Nasal [place] (Fluticasone Propionate) 16 Gm [place].susp 2 [place] NS DAILY Multivitamins (Multivitamin) 1 Each Tablet 1 Tab PO DAILY Trazodone Hcl 50 Mg Tablet 25 Mg PO DAILYWSUP Ascorbic Acid 500 Mg Tablet 500 Mg PO DAILY I have reviewed the current psychotropics carefully including drug interactions. Risk benefit ratio favors no change other than as noted in my dictated progress note. Diagnosis: Problems: (1) Healthcare-associated pneumonia (2) Acute respiratory failure with hypoxia (3) Acute and chronic respiratory failure with hypoxia (4) Anxiety disorder (5) Lewy body dementia with behavioral disturbance (6) Impulse control disorder (7) Personality disorder in adult SAY PRUETT MD May 21, 2018 22:38
[2018-05-22] MEDS: IPRATROPIUM BROMIDE 0.5 MG/2.5 ML NEBU. NEB SCH ×4 (05:29→21:07)
[2018-05-22] MEDS: FERROUS SULFATE 325 MG TABLET. PO SCH (05:45)
[2018-05-22] MEDS: CARBIDOPA/LEVODOPA 25/100MG TABLET PO SCH ×9 (05:45→22:00)
[2018-05-22 06:13] VITALS: BP 123/87
[2018-05-22] MEDS: RIVASTIGMINE 13.3MG PATCH. TD SCH (09:05)
[2018-05-22] MEDS: MAGNESIUM OXIDE 400 MG TABLET PO SCH ×2 (09:06→19:20)
[2018-05-22] MEDS: MULTIVITAMIN with MINERAL TABLET. PO SCH (09:06)
[2018-05-22] MEDS: ASCORBIC ACID 500 MG TABLET PO SCH (09:06)
[2018-05-22] MEDS: PRAVASTATIN 20 MG TABLET. PO SCH (09:06)
[2018-05-22] MEDS: DOCUSATE SODIUM 100 MG CAPSULE PO SCH ×2 (09:06→19:20)
[2018-05-22] MEDS: LACTULOSE 20 GM/30 ML SOLUTION. PO SCH (09:06)
[2018-05-22] MEDS: MEMANTINE 10 MG TABLET. PO SCH ×2 (09:07→17:29)
[2018-05-22] MEDS: SERTRALINE 25 MG TABLET. PO SCH (09:07)
[2018-05-22] MEDS: ASPIRIN ENTERIC COATED 81 MG TABLET.DR. PO SCH (09:07)
[2018-05-22] MEDS: metFORMIN XR 500 MG TAB.ER.24H PO SCH (09:07)
[2018-05-22] MEDS: LACTOBACILLUS RHAMNOSUS GG 1 CAPSULE. PO SCH ×2 (09:07→19:19)
[2018-05-22] MEDS: NYSTATIN TOPICAL POWDER 15GM BOTTLE. TP SCH ×2 (09:12→19:20)
[2018-05-22] MEDS: LINACLOTIDE 145 MCG CAPSULE. PO SCH (09:12)
[2018-05-22] MEDS: FLUTICASONE 50MCG/NASAL SPRAY 16GM BOTTLE. NS SCH (09:13)
[2018-05-22 16:13] VITALS: BP 111/73
[2018-05-22] MEDS: CARBIDOPA/LEVODOPA CR 50/200MG TABLET.SA PO SCH (19:18)
[2018-05-22] MEDS: PRAMIPEXOLE 0.5 MG TABLET. PO SCH (19:19)
[2018-05-22] MEDS: MELATONIN 3 MG TABLET PO SCH (19:19)
[2018-05-22] MEDS: DIVALPROEX SODIUM 250 MG TABLET.DR. PO SCH (19:19)
[2018-05-22] MEDS: traZODone 100 MG TABLET. PO SCH (19:19)
[2018-05-22] MEDS: QUEtiapine 100 MG TABLET. PO SCH (19:20)
[2018-05-22] MEDS: risperiDONE 0.5 MG TABLET. PO SCH (19:20)
[2018-05-22] MEDS: BENZOCAINE/MENTHOL LOZNGE 18'S BOX. MM PRN (20:01)
--- NOTE | 2018-05-22 20:52 | PN ---
DATE: 05/21/2018 PSYCHIATRIC PROGRESS NOTE This late entry 05/21/2018 covers elements not covered in my initial note. SUBJECTIVE: I met with the patient in the evening. The patient slept 2 hours previous night. He has otherwise been less impulsive, less labile in his mood, not trying to throw himself on the ground. REVIEW OF SYSTEMS: Ambulation impaired, in wheelchair. No CV, , pulmonary, eye, ENT system symptoms on review. He has some vague somatic symptoms. MENTAL STATUS EXAM: Oriented to himself and situation. Speech is coherent, less pressured. Abstraction fair, computation impaired, language function intact, attention span short. Mood and affect still anxious, but lability is much improved. We are gradually reducing the duration of his one-on-one status as he has been more stable and we will continue to do that till it is discontinued in preparation for discharge, transition to a lower level of care. IMPRESSION: Bipolar 1 disorder, mixed, Lewy body dementia, probably early with delusions, impulse control disorder; anxiety disorder, unspecified. PLAN: Discontinue the trazodone 25 mg at 1700 and increase at bedtime, trazodone from 150 mg to 200 mg. Continue rest unchanged. SAY PRUETT MD DR: MARCEL/nano JOB#: [id number] / [id number]
--- NOTE | 2018-05-22 22:40 | PDOC ---
Exam Note: Сергей Note: Please also refer to the separate dictated note~for this date of service dictated separately.~Patient seen individually. Discussed the patient with Nursing staff reviewed the chart.~Reviewed interim history and current functioning. Reviewed vital signs,~Labs/ Radiology~and current medications noted below. Continue current treatment with the changes noted in the dictated addendum note Assessment: Vital Signs: Vital Signs Date Time Temp Pulse Resp B/P (MAP) Pulse Ox O2 Delivery O2 Flow Rate FiO2 05/22/18 20:25 94 Room Air 05/22/18 16:13 97.5 67 20 111/73 (86) I&O Intake and Output 05/22/18 07:00 Intake Total 1560 ml Balance 1560 ml Intake Oral 1560 ml # Bowel Movements 2 Current Medications: Meds: Current Medications Acetaminophen (Tylenol) 650 mg PRN Q6HRS PRN PO PAIN / TEMP Last administered on 05/21/18 20:00; Start 05/10/18 at 17:45 Albuterol Sulfate (Ventolin) 2.5 mg PRN Q4HRS PRN NEB COUGH; Start 05/10/18 at 17:45 Ascorbic Acid (Vitamin C) 500 mg DAILY PO Last administered on 05/22/18 09:06 ; Start 05/11/18 at 09:00 Throat Lozenges (Cepacol Sore Throat Lozenge) 1 osito PRN Q2HR PRN MM COUGH Last administered on 05/22/18 20:01; Start 05/10/18 at 17:45 Carbidopa/Levodopa (Sinemet 25/100) 0.5 tab Q2HR W/A PO Last administered on 05/22/18 17:29; Start 05/10/18 at 18:00 Vitamin D (Vitamin D3) 50,000 unit WEEKLY PO Last administered on 05/17/18at 08 :47; Start 05/17/18 at 09:00 Diclofenac Sodium (Voltaren) 1 juan PRN TID PRN TP MUSCLE PAIN; Start 05/10/18 at 17:45 Ferrous Sulfate (Feosol) 650 mg DAILY06 PO Last administered on 05/22/18 05:45 ; Start 05/11/18 at 06:00 Guaifenesin (Mucinex Er) 600 mg BID PO Last administered on 05/21/18at 08:09; Start 05/10/18 at 21:00; Stop 05/21/18 at 15:53; Status DC Ibuprofen (Motrin) 600 mg PRN BID PRN PO INFLAMMATION PAIN Last administered on 05/13/18 16:19; Start 05/10/18 at 17:45 Ipratropium [place] (Atrovent) 0.5 mg RTQID NEB Last administered on 05/22/18 21:07; Start 05/10/18 at 20:00 Linaclotide (Linzess) 145 mcg DAILY PO Last administered on 05/22/18 09:12; Start 05/11/18 at 09:00 Al Hydroxide/Mg Hydroxide (Mylanta Plus Xs) 15 ml PRN AFTMEALHC PRN PO DYSPEPSIA; Start 05/10/18 at 17:45 Multi-Ingredient Ointment (Analgesic [place]) 1 juan QID PRN TP MUSCLE PAIN; Start 05/10/18 at 17:45 Nystatin (Nystop) 1 juan BID TP Last administered on 05/22/18 19:20; Start at 21:00 Olanzapine (ZyPREXA ZYDIS) 5 mg PRN Q2HR PRN PO ANXIETY / AGITATION Last administered on 05/13/18at 23:10; Start 05/10/18 at 17:45 Amoxicillin/ Clavulanate Potassium (Augmentin 875/ 125mg) 1 tab BID PO Last administered on 05/21/18 08:07; Start 05/10/18 at 21:00; Stop 05/21/18 at 15: 52; Status DC Aspirin (Aspirin Enteric Coated) 81 mg DAILYWBKFT PO Last administered on at 09:07; Start 05/11/18 at 08:00 Benzonatate (Tessalon Perle) 100 mg [id number] PO Last administered on 05/17/18at 14:04; Start 05/10/18 at 21:00; Stop 05/17/18 at 14:52; Status DC Carbidopa/Levodopa (Sinemet Cr) 1 tab.sa QHS PO Last administered on 05/22/18 19:18; Start 05/10/18 at 21:00 Diazepam (Valium) 2 mg PRN Q6HRS PRN PO ANXIETY / AGITATION Last administered on 05/11/18at 08:41; Start 05/10/18 at 18:00; Stop 05/11/18 at 18:16; Status DC Divalproex Sodium (Depakote) 1,500 mg QHS PO Last administered on 05/22/18 19: 19; Start 05/10/18 at 21:00 Docusate Sodium (Colace) 100 mg BID PO Last administered on 05/22/18 19:20; Start 05/10/18 at 21:00 Fluticasone Propionate (Flonase) 2 spray DAILY NS Last administered on 09:13; Start 05/11/18 at 09:00 Hydrocortisone (Cortaid) 1 juan PRN BID PRN TP RASH; Start 05/10/18 at 19:15 Lactobacillus Rhamnosus (Culturelle) 1 cap BID PO Last administered on 19:19; Start 05/10/18 at 21:00 Lactulose (Lactulose) 15 gm DAILYWBKFT PO Last administered on 05/22/18 09:06 ; Start 05/11/18 at 08:00 Magnesium Hydroxide (Milk Of Magnesia) 2,400 mg PRN QHS PRN PO CONSTIPATION; Start 05/10/18 at 18:30 Magnesium Oxide (Magnesium Oxide) 400 mg BID PO Last administered on 05/22/18 19:20; Start 05/10/18 at 21:00 Melatonin 3 mg QHS PO Last administered on 05/22/18 19:19; Start 05/10/18 at 21:00 Memantine (Namenda) 10 mg BIDWMEALS PO Last administered on 05/22/18 17:29; Start 05/10/18 at 18:30 Metformin HCl (Glucophage Xr) 1,000 mg DAILYWBKFT PO Last administered on 09:07; Start 05/11/18 at 08:00 Miconazole Nitrate (Monistat-Derm) 1 juan PRN BID PRN TP RASH; Start 05/10/18 at 21:00 Multivitamins/ Calcium (Thera-M Plus) 1 tab DAILY PO Last administered on 09:06; Start 05/11/18 at 09:00 Pramipexole Dihydrochloride (miraPEX) 0.5 mg QHS PO Last administered on 12/5/ 18at 19:19; Start 05/10/18 at 21:00 Pravastatin Sodium (Pravachol) 40 mg DAILY PO Last administered on 05/22/18 09 :06; Start 05/11/18 at 09:00 Quetiapine Fumarate (SEROquel) 200 mg QHS PO Last administered on 05/22/18 19: 20; Start 05/10/18 at 21:00 Rivastigmine (Exelon) 1 patch DAILY TD Last administered on 05/15/18at 08:04; Start 05/11/18 at 09:00; Stop 05/15/18 at 12:34; Status DC Sertraline HCl (Zoloft) 75 mg DAILY PO Last administered on 05/22/18 09:07; Start 05/11/18 at 09:00 Trazodone HCl (Desyrel) 25 mg DAILYWSUP PO Last administered on 05/21/18at 15:55 ; Start 05/10/18 at 18:30; Stop 05/21/18 at 16:34; Status DC Trazodone HCl (Desyrel) 100 mg PRN QHS PRN PO INSOMNIA Last administered on 05/19/18at 23:02; Start 05/10/18 at 18:00; Stop 05/21/18 at 16:34; Status DC Trazodone HCl (Desyrel) 150 mg QHS PO Last administered on 05/20/18at 19:47; Start 05/10/18 at 21:00; Stop 05/21/18 at 16:34; Status DC Acetaminophen (Tylenol) 650 mg PRN Q6HRS PRN PO PAIN / TEMP; Start 05/10/18 at 18:15; Status UNV Multi-Ingredient Ointment (Analgesic [place]) 1 juan PRN QID PRN TP MUSCLE PAIN; Start 05/10/18 at 18:15; Status UNV Al Hydroxide/Mg Hydroxide (Mylanta Plus Xs) 15 ml PRN AFTMEALHC PRN PO DYSPEPSIA; Start 05/10/18 at 18:15; Status UNV Magnesium Hydroxide (Milk Of Magnesia) 2,400 mg PRN QHS PRN PO CONSTIPATION; Start 05/10/18 at 18:15; Status UNV Alprazolam (Xanax) 0.5 mg PRN Q6HRS PRN PO ANXIETY / AGITATION Last administered on 05/17/18at 21:09; Start 05/11/18 at 18:15 Rivastigmine (Exelon 13.3mg) 1 patch DAILY TD Last administered on 05/22/18at 09 :05; Start 05/16/18 at 09:00 Risperidone (RisperDAL) 0.5 mg HS PO Last administered on 05/22/18at 19:20; Start 05/17/18 at 21:00 Trazodone HCl (Desyrel) 200 mg PRN QHS PRN PO INSOMNIA; Start 05/21/18 at 21:00 Trazodone HCl (Desyrel) 200 mg QHS PO Last administered on 05/22/18at 19:19; Start 05/21/18 at 21:00 Active Scripts Active Reported Neomycin Sulfate 500 Mg Tablet 1 Juan PO DAILY Augmentin 875-125 Tablet (Amoxicillin/Potassium Clav) 1 Each Tablet 1 Each PO BID 5 Days Albuterol Sulfate Neb Soln (Albuterol Sulfate) 2.5 Mg/3 Ml Vial.neb 2.5 Mg PRN Q4HRS PRN EXELON 9.5mg/24hr (Rivastigmine) 1 Each Patch.td24 1 Patch TD DAILY Trazodone Hcl 150 Mg Tablet 150 Mg PO HS Trazodone Hcl 100 Mg Tablet 100 Mg PO PRN QHS PRN Guaifenesin 600 Mg Tablet.er 600 Mg PO BID Zoloft (Sertraline Hcl) 25 Mg Tablet 75 Mg PO DAILY Seroquel (Quetiapine Fumarate) 200 Mg Tablet 200 Mg PO HS Ipratropium [place] 0.2 Mg/1 Ml Solution 1 Vial NEB QID Benzonatate 100 Mg Capsule 100 Mg PO TID Cepacol Sore Throat Lozenge (Benzocaine/Menthol) 1 Each Lozenge 1 Each MM PRN Q2HR PRN Mag-Al Plus Xs Suspension (Mag Hydrox/Al Hydrox/Simeth) 30 Ml Oral.susp 15 Ml PO PRN AFTMEALHC PRN Lactulose 10 Gm/15 Ml Solution 15 Gm PO DAILYWBKFT Zyprexa Zydis (Olanzapine) 5 Mg Tab.rapdis 5 Mg PO PRN Q2HR PRN Analgesic [place] (Methyl Salicylate/Menthol) 28 Gm Oint...g. 1 Juan TP QID PRN Namenda (Memantine Hcl) 10 Mg Tablet 1 Tab PO BIDWMEALS Melatonin 3 Mg Tablet 1 Tab PO QHS Culturelle (Lactobacillus Rhamnosus Gg) 1 Each Capsule 1 Each PO BID Glucophage Xr (Metformin Hcl) 500 Mg Tab.er.24h 2 Tab PO DAILYWBKFT Nystatin 15 Gm Powder 1 Juan TP BID Milk Of Magnesia (Magnesium Hydroxide) 2,400 Mg/10 Ml Oral.susp 2,400 Mg PO HS PRN Voltaren (Diclofenac Sodium) 100 Gm Gel..gram. 1 Juan TP PRN TID PRN FOR NECK PAIN Vitamin D3 (Cholecalciferol (Vitamin D3)) 50,000 Unit Capsule 50,000 Unit PO WEEKLY Tylenol (Acetaminophen) 325 Mg Tablet 2 Tab PO PRN Q6HRS PRN Pravastatin Sodium 40 Mg Tablet 40 Mg PO DAILY Carbidopa-Levo Er 50-200 Tab (Carbidopa/Levodopa) 1 Each Tablet.er 1 Each PO HS Sinemet 25-100 Mg Tablet (Carbidopa/Levodopa) 1 Each Tablet 0.5 Tab PO Q2HR W/A Diazepam 2 Mg Tablet 2 Mg PO PRN Q6HRS PRN Mirapex (Pramipexole Di-Hcl) 0.25 Mg Tablet 0.5 Mg PO HS Linzess (Linaclotide) 145 Mcg Capsule 145 Mcg PO DAILY Divalproex Sodium 500 Mg Tablet.dr 1,500 Mg PO HS Hydrocortisone 453.6 Gm Cream..g. 1 Juan TP PRN BID PRN Ferrous Sulfate 325 Mg Tablet 650 Mg PO DAILY06 Magnesium Oxide 400 Mg Tablet 400 Mg PO BID Miconazole Nitrate 45 Gm Cream.appl 1 Juan TP PRN BID PRN Aspirin 81 Mg Tab.chew 81 Mg PO DAILY Ibuprofen 400 Mg Tablet 600 Mg PO PRN BID PRN Docusate Sodium 100 Mg Capsule 100 Mg PO BID Fluticasone Propionate Nasal [place] (Fluticasone Propionate) 16 Gm [place].susp 2 [place] NS DAILY Multivitamins (Multivitamin) 1 Each Tablet 1 Tab PO DAILY Trazodone Hcl 50 Mg Tablet 25 Mg PO DAILYWSUP Ascorbic Acid 500 Mg Tablet 500 Mg PO DAILY I have reviewed the current psychotropics carefully including drug interactions. Risk benefit ratio favors no change other than as noted in my dictated progress note. Diagnosis: Problems: (1) Healthcare-associated pneumonia (2) Acute respiratory failure with hypoxia (3) Acute and chronic respiratory failure with hypoxia (4) Anxiety disorder (5) Lewy body dementia with behavioral disturbance (6) Impulse control disorder (7) Personality disorder in adult SAY PRUETT MD May 22, 2018 22:40
[2018-05-23] MEDS: IPRATROPIUM BROMIDE 0.5 MG/2.5 ML NEBU. NEB SCH ×4 (04:14→20:17)
[2018-05-23] MEDS: FERROUS SULFATE 325 MG TABLET. PO SCH (04:49)
[2018-05-23] MEDS: CARBIDOPA/LEVODOPA 25/100MG TABLET PO SCH ×9 (04:49→22:00)
[2018-05-23 06:13] VITALS: BP 144/86
[2018-05-23] MEDS: RIVASTIGMINE 13.3MG PATCH. TD SCH (10:26)
[2018-05-23] MEDS: FLUTICASONE 50MCG/NASAL SPRAY 16GM BOTTLE. NS SCH (10:26)
[2018-05-23] MEDS: LACTULOSE 20 GM/30 ML SOLUTION. PO SCH (10:26)
[2018-05-23] MEDS: NYSTATIN TOPICAL POWDER 15GM BOTTLE. TP SCH ×2 (10:26→20:11)
[2018-05-23] MEDS: metFORMIN XR 500 MG TAB.ER.24H PO SCH (10:27)
[2018-05-23] MEDS: LACTOBACILLUS RHAMNOSUS GG 1 CAPSULE. PO SCH ×2 (10:27→20:10)
[2018-05-23] MEDS: SERTRALINE 25 MG TABLET. PO SCH (10:28)
[2018-05-23] MEDS: MEMANTINE 10 MG TABLET. PO SCH ×2 (10:28→18:08)
[2018-05-23] MEDS: DOCUSATE SODIUM 100 MG CAPSULE PO SCH ×2 (10:28→20:10)
[2018-05-23] MEDS: MULTIVITAMIN with MINERAL TABLET. PO SCH (10:28)
[2018-05-23] MEDS: ASCORBIC ACID 500 MG TABLET PO SCH (10:28)
[2018-05-23] MEDS: ASPIRIN ENTERIC COATED 81 MG TABLET.DR. PO SCH (10:28)
[2018-05-23] MEDS: MAGNESIUM OXIDE 400 MG TABLET PO SCH ×2 (10:28→20:10)
[2018-05-23] MEDS: PRAVASTATIN 20 MG TABLET. PO SCH (10:33)
[2018-05-23] MEDS: LINACLOTIDE 145 MCG CAPSULE. PO SCH (10:34)
[2018-05-23 15:58] VITALS: BP 118/82
[2018-05-23] MEDS: PRAMIPEXOLE 0.5 MG TABLET. PO SCH (20:10)
[2018-05-23] MEDS: CARBIDOPA/LEVODOPA CR 50/200MG TABLET.SA PO SCH (20:10)
[2018-05-23] MEDS: MELATONIN 3 MG TABLET PO SCH (20:10)
[2018-05-23] MEDS: DIVALPROEX SODIUM 250 MG TABLET.DR. PO SCH (20:10)
[2018-05-23] MEDS: risperiDONE 0.5 MG TABLET. PO SCH (20:10)
[2018-05-23] MEDS: QUEtiapine 100 MG TABLET. PO SCH (20:10)
[2018-05-23] MEDS: traZODone 100 MG TABLET. PO SCH (20:11)
--- NOTE | 2018-05-23 21:25 | PN ---
DATE: 05/22/2018 PSYCHIATRIC PROGRESS NOTE This late entry 05/22/2018 covers elements not covered in my initial note. SUBJECTIVE: I met with the patient in the evening. The patient slept 5 hours previous night. He has been otherwise pleasant, refused to get up in the morning, resistive to medications, but better later in the day. At times, he is somewhat impulsive, but no suicidal ideation noted. REVIEW OF SYSTEMS: Ambulation impaired, in wheelchair. No CV, , pulmonary, eye, ENT system symptoms on review. MENTAL STATUS EXAM: Reasonably oriented. Speech coherent, less pressured. Abstraction fair, computation impaired, language function intact, attention span short. Mood and affect remain somewhat anxious, but improved. No suicidal ideation. LABORATORY DATA: Reviewed. IMPRESSION: Bipolar 1 disorder, mixed; anxiety disorder, unspecified; impulse control disorder, unspecified; Lewy body dementia, early with depression. PLAN: No change from initial note. We will increase Risperdal gradually if clinically indicated. MAN Rosa PRUETT MD DR: MARCEL/nano JOB#: [id number] / [id number]
--- NOTE | 2018-05-23 22:42 | PDOC ---
Exam Note: Сергей Note: Please also refer to the separate dictated note~for this date of service dictated separately.~Patient seen individually. Discussed the patient with Nursing staff reviewed the chart.~Reviewed interim history and current functioning. Reviewed vital signs,~Labs/ Radiology~and current medications noted below. Continue current treatment with the changes noted in the dictated addendum note Assessment: Vital Signs: Vital Signs Date Time Temp Pulse Resp B/P (MAP) Pulse Ox O2 Delivery O2 Flow Rate FiO2 05/23/18 20:08 97 Room Air 05/23/18 15:58 97.4 65 20 118/82 (94) I&O Intake and Output 05/23/18 07:00 Intake Total 1680 ml Balance 1680 ml Intake Oral 1680 ml # Bowel Movements 1 Current Medications: Meds: Current Medications Acetaminophen (Tylenol) 650 mg PRN Q6HRS PRN PO PAIN / TEMP Last administered on 05/21/18 20:00; Start 05/10/18 at 17:45 Albuterol Sulfate (Ventolin) 2.5 mg PRN Q4HRS PRN NEB COUGH; Start 05/10/18 at 17:45 Ascorbic Acid (Vitamin C) 500 mg DAILY PO Last administered on 05/23/18at 10:28 ; Start 05/11/18 at 09:00 Throat Lozenges (Cepacol Sore Throat Lozenge) 1 osito PRN Q2HR PRN MM COUGH Last administered on 05/22/18at 20:01; Start 05/10/18 at 17:45 Carbidopa/Levodopa (Sinemet 25/100) 0.5 tab Q2HR W/A PO Last administered on 05/23/18at 18:08; Start 05/10/18 at 18:00 Vitamin D (Vitamin D3) 50,000 unit WEEKLY PO Last administered on 05/17/18at 08 :47; Start 05/17/18 at 09:00 Diclofenac Sodium (Voltaren) 1 juan PRN TID PRN TP MUSCLE PAIN; Start 05/10/18 at 17:45 Ferrous Sulfate (Feosol) 650 mg DAILY06 PO Last administered on 05/23/18at 04:49 ; Start 05/11/18 at 06:00 Guaifenesin (Mucinex Er) 600 mg BID PO Last administered on 05/21/18at 08:09; Start 05/10/18 at 21:00; Stop 05/21/18 at 15:53; Status DC Ibuprofen (Motrin) 600 mg PRN BID PRN PO INFLAMMATION PAIN Last administered on 05/13/18 16:19; Start 05/10/18 at 17:45 Ipratropium [place] (Atrovent) 0.5 mg RTQID NEB Last administered on 05/23/18 20:17; Start 05/10/18 at 20:00 Linaclotide (Linzess) 145 mcg DAILY PO Last administered on 05/23/18 10:34; Start 05/11/18 at 09:00 Al Hydroxide/Mg Hydroxide (Mylanta Plus Xs) 15 ml PRN AFTMEALHC PRN PO DYSPEPSIA; Start 05/10/18 at 17:45 Multi-Ingredient Ointment (Analgesic [place]) 1 juan QID PRN TP MUSCLE PAIN; Start 05/10/18 at 17:45 Nystatin (Nystop) 1 juan BID TP Last administered on 05/23/18 20:11; Start at 21:00 Olanzapine (ZyPREXA ZYDIS) 5 mg PRN Q2HR PRN PO ANXIETY / AGITATION Last administered on 05/13/18 23:10; Start 05/10/18 at 17:45 Amoxicillin/ Clavulanate Potassium (Augmentin 875/ 125mg) 1 tab BID PO Last administered on 05/21/18 08:07; Start 05/10/18 at 21:00; Stop 05/21/18 at 15: 52; Status DC Aspirin (Aspirin Enteric Coated) 81 mg DAILYWBKFT PO Last administered on at 10:28; Start 05/11/18 at 08:00 Benzonatate (Tessalon Perle) 100 mg [id number] PO Last administered on 05/17/18 14:04; Start 05/10/18 at 21:00; Stop 05/17/18 at 14:52; Status DC Carbidopa/Levodopa (Sinemet Cr) 1 tab.sa QHS PO Last administered on 05/23/18 20:10; Start 05/10/18 at 21:00 Diazepam (Valium) 2 mg PRN Q6HRS PRN PO ANXIETY / AGITATION Last administered on 05/11/18at 08:41; Start 05/10/18 at 18:00; Stop 05/11/18 at 18:16; Status DC Divalproex Sodium (Depakote) 1,500 mg QHS PO Last administered on 05/23/18 20: 10; Start 05/10/18 at 21:00 Docusate Sodium (Colace) 100 mg BID PO Last administered on 05/23/18 20:10; Start 05/10/18 at 21:00 Fluticasone Propionate (Flonase) 2 spray DAILY NS Last administered on 10:26; Start 05/11/18 at 09:00 Hydrocortisone (Cortaid) 1 juan PRN BID PRN TP RASH; Start 05/10/18 at 19:15 Lactobacillus Rhamnosus (Culturelle) 1 cap BID PO Last administered on 20:10; Start 05/10/18 at 21:00 Lactulose (Lactulose) 15 gm DAILYWBKFT PO Last administered on 05/23/18 10:26 ; Start 05/11/18 at 08:00 Magnesium Hydroxide (Milk Of Magnesia) 2,400 mg PRN QHS PRN PO CONSTIPATION; Start 05/10/18 at 18:30 Magnesium Oxide (Magnesium Oxide) 400 mg BID PO Last administered on 05/23/18 20:10; Start 05/10/18 at 21:00 Melatonin 3 mg QHS PO Last administered on 05/23/18 20:10; Start 05/10/18 at 21:00 Memantine (Namenda) 10 mg BIDWMEALS PO Last administered on 05/23/18at 18:08; Start 05/10/18 at 18:30 Metformin HCl (Glucophage Xr) 1,000 mg DAILYWBKFT PO Last administered on 10:27; Start 05/11/18 at 08:00 Miconazole Nitrate (Monistat-Derm) 1 juan PRN BID PRN TP RASH; Start 05/10/18 at 21:00 Multivitamins/ Calcium (Thera-M Plus) 1 tab DAILY PO Last administered on 10:28; Start 05/11/18 at 09:00 Pramipexole Dihydrochloride (miraPEX) 0.5 mg QHS PO Last administered on 12/6/ 18at 20:10; Start 05/10/18 at 21:00 Pravastatin Sodium (Pravachol) 40 mg DAILY PO Last administered on 05/23/18at 10 :33; Start 05/11/18 at 09:00 Quetiapine Fumarate (SEROquel) 200 mg QHS PO Last administered on 05/23/18at 20: 10; Start 05/10/18 at 21:00 Rivastigmine (Exelon) 1 patch DAILY TD Last administered on 05/15/18at 08:04; Start 05/11/18 at 09:00; Stop 05/15/18 at 12:34; Status DC Sertraline HCl (Zoloft) 75 mg DAILY PO Last administered on 05/23/18at 10:28; Start 05/11/18 at 09:00 Trazodone HCl (Desyrel) 25 mg DAILYWSUP PO Last administered on 05/21/18at 15:55 ; Start 05/10/18 at 18:30; Stop 05/21/18 at 16:34; Status DC Trazodone HCl (Desyrel) 100 mg PRN QHS PRN PO INSOMNIA Last administered on 05/19/18at 23:02; Start 05/10/18 at 18:00; Stop 05/21/18 at 16:34; Status DC Trazodone HCl (Desyrel) 150 mg QHS PO Last administered on 05/20/18at 19:47; Start 05/10/18 at 21:00; Stop 05/21/18 at 16:34; Status DC Acetaminophen (Tylenol) 650 mg PRN Q6HRS PRN PO PAIN / TEMP; Start 05/10/18 at 18:15; Status UNV Multi-Ingredient Ointment (Analgesic [place]) 1 juan PRN QID PRN TP MUSCLE PAIN; Start 05/10/18 at 18:15; Status UNV Al Hydroxide/Mg Hydroxide (Mylanta Plus Xs) 15 ml PRN AFTMEALHC PRN PO DYSPEPSIA; Start 05/10/18 at 18:15; Status UNV Magnesium Hydroxide (Milk Of Magnesia) 2,400 mg PRN QHS PRN PO CONSTIPATION; Start 05/10/18 at 18:15; Status UNV Alprazolam (Xanax) 0.5 mg PRN Q6HRS PRN PO ANXIETY / AGITATION Last administered on 05/17/18at 21:09; Start 05/11/18 at 18:15 Rivastigmine (Exelon 13.3mg) 1 patch DAILY TD Last administered on 05/23/18at 10 :26; Start 05/16/18 at 09:00 Risperidone (RisperDAL) 0.5 mg HS PO Last administered on 05/23/18at 20:10; Start 05/17/18 at 21:00 Trazodone HCl (Desyrel) 200 mg PRN QHS PRN PO INSOMNIA Last administered on 05/23/18at 01:00; Start 05/21/18 at 21:00 Trazodone HCl (Desyrel) 200 mg QHS PO Last administered on 05/23/18at 20:11; Start 05/21/18 at 21:00 Active Scripts Active Reported Neomycin Sulfate 500 Mg Tablet 1 Juan PO DAILY Augmentin 875-125 Tablet (Amoxicillin/Potassium Clav) 1 Each Tablet 1 Each PO BID 5 Days Albuterol Sulfate Neb Soln (Albuterol Sulfate) 2.5 Mg/3 Ml Vial.neb 2.5 Mg PRN Q4HRS PRN EXELON 9.5mg/24hr (Rivastigmine) 1 Each Patch.td24 1 Patch TD DAILY Trazodone Hcl 150 Mg Tablet 150 Mg PO HS Trazodone Hcl 100 Mg Tablet 100 Mg PO PRN QHS PRN Guaifenesin 600 Mg Tablet.er 600 Mg PO BID Zoloft (Sertraline Hcl) 25 Mg Tablet 75 Mg PO DAILY Seroquel (Quetiapine Fumarate) 200 Mg Tablet 200 Mg PO HS Ipratropium [place] 0.2 Mg/1 Ml Solution 1 Vial NEB QID Benzonatate 100 Mg Capsule 100 Mg PO TID Cepacol Sore Throat Lozenge (Benzocaine/Menthol) 1 Each Lozenge 1 Each MM PRN Q2HR PRN Mag-Al Plus Xs Suspension (Mag Hydrox/Al Hydrox/Simeth) 30 Ml Oral.susp 15 Ml PO PRN AFTMEALHC PRN Lactulose 10 Gm/15 Ml Solution 15 Gm PO DAILYWBKFT Zyprexa Zydis (Olanzapine) 5 Mg Tab.rapdis 5 Mg PO PRN Q2HR PRN Analgesic [place] (Methyl Salicylate/Menthol) 28 Gm Oint...g. 1 Juan TP QID PRN Namenda (Memantine Hcl) 10 Mg Tablet 1 Tab PO BIDWMEALS Melatonin 3 Mg Tablet 1 Tab PO QHS Culturelle (Lactobacillus Rhamnosus Gg) 1 Each Capsule 1 Each PO BID Glucophage Xr (Metformin Hcl) 500 Mg Tab.er.24h 2 Tab PO DAILYWBKFT Nystatin 15 Gm Powder 1 Juan TP BID Milk Of Magnesia (Magnesium Hydroxide) 2,400 Mg/10 Ml Oral.susp 2,400 Mg PO HS PRN Voltaren (Diclofenac Sodium) 100 Gm Gel..gram. 1 Juan TP PRN TID PRN FOR NECK PAIN Vitamin D3 (Cholecalciferol (Vitamin D3)) 50,000 Unit Capsule 50,000 Unit PO WEEKLY Tylenol (Acetaminophen) 325 Mg Tablet 2 Tab PO PRN Q6HRS PRN Pravastatin Sodium 40 Mg Tablet 40 Mg PO DAILY Carbidopa-Levo Er 50-200 Tab (Carbidopa/Levodopa) 1 Each Tablet.er 1 Each PO HS Sinemet 25-100 Mg Tablet (Carbidopa/Levodopa) 1 Each Tablet 0.5 Tab PO Q2HR W/A Diazepam 2 Mg Tablet 2 Mg PO PRN Q6HRS PRN Mirapex (Pramipexole Di-Hcl) 0.25 Mg Tablet 0.5 Mg PO HS Linzess (Linaclotide) 145 Mcg Capsule 145 Mcg PO DAILY Divalproex Sodium 500 Mg Tablet.dr 1,500 Mg PO HS Hydrocortisone 453.6 Gm Cream..g. 1 Juan TP PRN BID PRN Ferrous Sulfate 325 Mg Tablet 650 Mg PO DAILY06 Magnesium Oxide 400 Mg Tablet 400 Mg PO BID Miconazole Nitrate 45 Gm Cream.appl 1 Juan TP PRN BID PRN Aspirin 81 Mg Tab.chew 81 Mg PO DAILY Ibuprofen 400 Mg Tablet 600 Mg PO PRN BID PRN Docusate Sodium 100 Mg Capsule 100 Mg PO BID Fluticasone Propionate Nasal [place] (Fluticasone Propionate) 16 Gm [place].susp 2 [place] NS DAILY Multivitamins (Multivitamin) 1 Each Tablet 1 Tab PO DAILY Trazodone Hcl 50 Mg Tablet 25 Mg PO DAILYWSUP Ascorbic Acid 500 Mg Tablet 500 Mg PO DAILY I have reviewed the current psychotropics carefully including drug interactions. Risk benefit ratio favors no change other than as noted in my dictated progress note. Diagnosis: Problems: (1) Healthcare-associated pneumonia (2) Acute respiratory failure with hypoxia (3) Acute and chronic respiratory failure with hypoxia (4) Anxiety disorder (5) Lewy body dementia with behavioral disturbance (6) Impulse control disorder (7) Personality disorder in adult SAY PRUETT MD May 23, 2018 22:42
[2018-05-24] MEDS: IPRATROPIUM BROMIDE 0.5 MG/2.5 ML NEBU. NEB SCH ×4 (05:19→20:27)
[2018-05-24 06:00] VITALS: BP 140/88
[2018-05-24] MEDS: CARBIDOPA/LEVODOPA 25/100MG TABLET PO SCH ×9 (06:29→22:00)
[2018-05-24] MEDS: FERROUS SULFATE 325 MG TABLET. PO SCH (06:29)
[2018-05-24] MEDS: MAGNESIUM OXIDE 400 MG TABLET PO SCH ×2 (08:14→20:30)
[2018-05-24] MEDS: RIVASTIGMINE 13.3MG PATCH. TD SCH (08:14)
[2018-05-24] MEDS: ASPIRIN ENTERIC COATED 81 MG TABLET.DR. PO SCH (08:14)
[2018-05-24] MEDS: LACTOBACILLUS RHAMNOSUS GG 1 CAPSULE. PO SCH ×2 (08:14→20:29)
[2018-05-24] MEDS: metFORMIN XR 500 MG TAB.ER.24H PO SCH (08:15)
[2018-05-24] MEDS: PRAVASTATIN 20 MG TABLET. PO SCH (08:17)
[2018-05-24] MEDS: SERTRALINE 25 MG TABLET. PO SCH (08:17)
[2018-05-24] MEDS: MULTIVITAMIN with MINERAL TABLET. PO SCH (08:17)
[2018-05-24] MEDS: LINACLOTIDE 145 MCG CAPSULE. PO SCH (08:17)
[2018-05-24] MEDS: MEMANTINE 10 MG TABLET. PO SCH ×2 (08:17→16:21)
[2018-05-24] MEDS: DOCUSATE SODIUM 100 MG CAPSULE PO SCH ×2 (08:17→20:29)
[2018-05-24] MEDS: ASCORBIC ACID 500 MG TABLET PO SCH (08:17)
[2018-05-24] MEDS: LACTULOSE 20 GM/30 ML SOLUTION. PO SCH (08:18)
[2018-05-24] MEDS: CHOLECALCIFEROL (VITAMIN D3) 50,000 UNIT CAPSULE PO SCH (11:41)
[2018-05-24] MEDS: FLUTICASONE 50MCG/NASAL SPRAY 16GM BOTTLE. NS SCH (11:42)
[2018-05-24] MEDS: NYSTATIN TOPICAL POWDER 15GM BOTTLE. TP SCH ×2 (11:43→20:30)
[2018-05-24 16:32] VITALS: BP 129/86
[2018-05-24] MEDS: MELATONIN 3 MG TABLET PO SCH (20:29)
[2018-05-24] MEDS: PRAMIPEXOLE 0.5 MG TABLET. PO SCH (20:29)
[2018-05-24] MEDS: CARBIDOPA/LEVODOPA CR 50/200MG TABLET.SA PO SCH (20:29)
[2018-05-24] MEDS: risperiDONE 0.5 MG TABLET. PO SCH (20:29)
[2018-05-24] MEDS: QUEtiapine 100 MG TABLET. PO SCH (20:29)
[2018-05-24] MEDS: traZODone 100 MG TABLET. PO SCH (20:30)
[2018-05-24] MEDS: DIVALPROEX SODIUM 250 MG TABLET.DR. PO SCH (20:30)
--- NOTE | 2018-05-24 21:22 | PN ---
DATE: 05/23/2018 PSYCHIATRIC PROGRESS NOTE This late entry 05/23/2018 covers elements not covered in my initial note. SUBJECTIVE: I met with the patient in the evening. The patient slept 4 hours previous night. Staff is trying to take him off on one-on-one status and at dinnertime, he said he was suicidal, was tearful to the tech who was assisting him. REVIEW OF SYSTEMS: Ambulation impaired, in wheelchair. No CV, , pulmonary, eye, ENT system symptoms on review. MENTAL STATUS EXAM: Reasonably oriented. Speech is coherent, abstraction fair, computation impaired, language function intact, attention span short. Mood and affect remain somewhat anxious, less labile, less psychotic. LABORATORY DATA: Reviewed. IMPRESSION: Unchanged from initial note. PLAN: No change from initial note, but we will have to continue one-on-one status and try and taper it again in a day or so. SAY PRUETT MD DR: MARCEL/nano JOB#: [id number] / [id number]
--- NOTE | 2018-05-24 22:26 | PDOC ---
Exam Note: Сергей Note: Please also refer to the separate dictated note~for this date of service dictated separately.~Patient seen individually. Discussed the patient with Nursing staff reviewed the chart.~Reviewed interim history and current functioning. Reviewed vital signs,~Labs/ Radiology~and current medications noted below. Continue current treatment with the changes noted in the dictated addendum note Assessment: Vital Signs: Vital Signs Date Time Temp Pulse Resp B/P (MAP) Pulse Ox O2 Delivery O2 Flow Rate FiO2 05/24/18 20:30 94 Room Air 05/24/18 16:32 98.6 72 22 129/86 (100) I&O Intake and Output 05/24/18 07:00 Intake Total 2040 ml Balance 2040 ml Intake Oral 2040 ml # Voids 2 # Bowel Movements 2 Current Medications: Meds: Current Medications Acetaminophen (Tylenol) 650 mg PRN Q6HRS PRN PO PAIN / TEMP Last administered on 05/21/18 20:00; Start 05/10/18 at 17:45 Albuterol Sulfate (Ventolin) 2.5 mg PRN Q4HRS PRN NEB COUGH; Start 05/10/18 at 17:45 Ascorbic Acid (Vitamin C) 500 mg DAILY PO Last administered on 05/24/18 08:17 ; Start 05/11/18 at 09:00 Throat Lozenges (Cepacol Sore Throat Lozenge) 1 osito PRN Q2HR PRN MM COUGH Last administered on 05/22/18 20:01; Start 05/10/18 at 17:45 Carbidopa/Levodopa (Sinemet 25/100) 0.5 tab Q2HR W/A PO Last administered on 05/24/18 20:29; Start 05/10/18 at 18:00 Vitamin D (Vitamin D3) 50,000 unit WEEKLY PO Last administered on 05/24/18at 11: 41; Start 05/17/18 at 09:00 Diclofenac Sodium (Voltaren) 1 juan PRN TID PRN TP MUSCLE PAIN; Start 05/10/18 at 17:45 Ferrous Sulfate (Feosol) 650 mg DAILY06 PO Last administered on 05/24/18 06:29 ; Start 05/11/18 at 06:00 Guaifenesin (Mucinex Er) 600 mg BID PO Last administered on 12/4/18at 08:09; Start 05/10/18 at 21:00; Stop 05/21/18 at 15:53; Status DC Ibuprofen (Motrin) 600 mg PRN BID PRN PO INFLAMMATION PAIN Last administered on 05/13/18 16:19; Start 05/10/18 at 17:45 Ipratropium [place] (Atrovent) 0.5 mg RTQID NEB Last administered on 05/24/18 20:27; Start 05/10/18 at 20:00 Linaclotide (Linzess) 145 mcg DAILY PO Last administered on 05/24/18 08:17; Start 05/11/18 at 09:00 Al Hydroxide/Mg Hydroxide (Mylanta Plus Xs) 15 ml PRN AFTMEALHC PRN PO DYSPEPSIA; Start 05/10/18 at 17:45 Multi-Ingredient Ointment (Analgesic [place]) 1 juan QID PRN TP MUSCLE PAIN; Start 05/10/18 at 17:45 Nystatin (Nystop) 1 juan BID TP Last administered on 05/24/18 20:30; Start at 21:00 Olanzapine (ZyPREXA ZYDIS) 5 mg PRN Q2HR PRN PO ANXIETY / AGITATION Last administered on 05/13/18 23:10; Start 05/10/18 at 17:45 Amoxicillin/ Clavulanate Potassium (Augmentin 875/ 125mg) 1 tab BID PO Last administered on 05/21/18 08:07; Start 05/10/18 at 21:00; Stop 05/21/18 at 15: 52; Status DC Aspirin (Aspirin Enteric Coated) 81 mg DAILYWBKFT PO Last administered on at 08:14; Start 05/11/18 at 08:00 Benzonatate (Tessalon Perle) 100 mg [id number] PO Last administered on 05/17/18 14:04; Start 05/10/18 at 21:00; Stop 05/17/18 at 14:52; Status DC Carbidopa/Levodopa (Sinemet Cr) 1 tab.sa QHS PO Last administered on 05/24/18 20:29; Start 05/10/18 at 21:00 Diazepam (Valium) 2 mg PRN Q6HRS PRN PO ANXIETY / AGITATION Last administered on 05/11/18 08:41; Start 05/10/18 at 18:00; Stop 05/11/18 at 18:16; Status DC Divalproex Sodium (Depakote) 1,500 mg QHS PO Last administered on 05/24/18 20: 30; Start 05/10/18 at 21:00 Docusate Sodium (Colace) 100 mg BID PO Last administered on 05/24/18 20:29; Start 05/10/18 at 21:00 Fluticasone Propionate (Flonase) 2 spray DAILY NS Last administered on 11:42; Start 05/11/18 at 09:00 Hydrocortisone (Cortaid) 1 juan PRN BID PRN TP RASH; Start 05/10/18 at 19:15 Lactobacillus Rhamnosus (Culturelle) 1 cap BID PO Last administered on 20:29; Start 05/10/18 at 21:00 Lactulose (Lactulose) 15 gm DAILYWBKFT PO Last administered on 05/24/18 08:18 ; Start 05/11/18 at 08:00 Magnesium Hydroxide (Milk Of Magnesia) 2,400 mg PRN QHS PRN PO CONSTIPATION; Start 05/10/18 at 18:30 Magnesium Oxide (Magnesium Oxide) 400 mg BID PO Last administered on 05/24/18 20:30; Start 05/10/18 at 21:00 Melatonin 3 mg QHS PO Last administered on 05/24/18 20:29; Start 05/10/18 at 21:00 Memantine (Namenda) 10 mg BIDWMEALS PO Last administered on 05/24/18 16:21; Start 05/10/18 at 18:30 Metformin HCl (Glucophage Xr) 1,000 mg DAILYWBKFT PO Last administered on 08:15; Start 05/11/18 at 08:00 Miconazole Nitrate (Monistat-Derm) 1 juan PRN BID PRN TP RASH; Start 05/10/18 at 21:00 Multivitamins/ Calcium (Thera-M Plus) 1 tab DAILY PO Last administered on 08:17; Start 05/11/18 at 09:00 Pramipexole Dihydrochloride (miraPEX) 0.5 mg QHS PO Last administered on 12/7/ 18at 20:29; Start 05/10/18 at 21:00 Pravastatin Sodium (Pravachol) 40 mg DAILY PO Last administered on 05/24/18at 08 :17; Start 05/11/18 at 09:00 Quetiapine Fumarate (SEROquel) 200 mg QHS PO Last administered on 05/24/18at 20: 29; Start 05/10/18 at 21:00 Rivastigmine (Exelon) 1 patch DAILY TD Last administered on 05/15/18at 08:04; Start 05/11/18 at 09:00; Stop 05/15/18 at 12:34; Status DC Sertraline HCl (Zoloft) 75 mg DAILY PO Last administered on 05/24/18at 08:17; Start 05/11/18 at 09:00 Trazodone HCl (Desyrel) 25 mg DAILYWSUP PO Last administered on 05/21/18at 15:55 ; Start 05/10/18 at 18:30; Stop 05/21/18 at 16:34; Status DC Trazodone HCl (Desyrel) 100 mg PRN QHS PRN PO INSOMNIA Last administered on 05/19/18at 23:02; Start 05/10/18 at 18:00; Stop 05/21/18 at 16:34; Status DC Trazodone HCl (Desyrel) 150 mg QHS PO Last administered on 05/20/18at 19:47; Start 05/10/18 at 21:00; Stop 05/21/18 at 16:34; Status DC Acetaminophen (Tylenol) 650 mg PRN Q6HRS PRN PO PAIN / TEMP; Start 05/10/18 at 18:15; Status UNV Multi-Ingredient Ointment (Analgesic [place]) 1 juan PRN QID PRN TP MUSCLE PAIN; Start 05/10/18 at 18:15; Status UNV Al Hydroxide/Mg Hydroxide (Mylanta Plus Xs) 15 ml PRN AFTMEALHC PRN PO DYSPEPSIA; Start 05/10/18 at 18:15; Status UNV Magnesium Hydroxide (Milk Of Magnesia) 2,400 mg PRN QHS PRN PO CONSTIPATION; Start 05/10/18 at 18:15; Status UNV Alprazolam (Xanax) 0.5 mg PRN Q6HRS PRN PO ANXIETY / AGITATION Last administered on 05/17/18at 21:09; Start 05/11/18 at 18:15 Rivastigmine (Exelon 13.3mg) 1 patch DAILY TD Last administered on 05/24/18at 08 :14; Start 05/16/18 at 09:00 Risperidone (RisperDAL) 0.5 mg HS PO Last administered on 05/24/18at 20:29; Start 05/17/18 at 21:00 Trazodone HCl (Desyrel) 200 mg PRN QHS PRN PO INSOMNIA Last administered on 05/23/18at 01:00; Start 05/21/18 at 21:00 Trazodone HCl (Desyrel) 200 mg QHS PO Last administered on 05/24/18at 20:30; Start 05/21/18 at 21:00 Active Scripts Active Reported Neomycin Sulfate 500 Mg Tablet 1 Juan PO DAILY Augmentin 875-125 Tablet (Amoxicillin/Potassium Clav) 1 Each Tablet 1 Each PO BID 5 Days Albuterol Sulfate Neb Soln (Albuterol Sulfate) 2.5 Mg/3 Ml Vial.neb 2.5 Mg PRN Q4HRS PRN EXELON 9.5mg/24hr (Rivastigmine) 1 Each Patch.td24 1 Patch TD DAILY Trazodone Hcl 150 Mg Tablet 150 Mg PO HS Trazodone Hcl 100 Mg Tablet 100 Mg PO PRN QHS PRN Guaifenesin 600 Mg Tablet.er 600 Mg PO BID Zoloft (Sertraline Hcl) 25 Mg Tablet 75 Mg PO DAILY Seroquel (Quetiapine Fumarate) 200 Mg Tablet 200 Mg PO HS Ipratropium [place] 0.2 Mg/1 Ml Solution 1 Vial NEB QID Benzonatate 100 Mg Capsule 100 Mg PO TID Cepacol Sore Throat Lozenge (Benzocaine/Menthol) 1 Each Lozenge 1 Each MM PRN Q2HR PRN Mag-Al Plus Xs Suspension (Mag Hydrox/Al Hydrox/Simeth) 30 Ml Oral.susp 15 Ml PO PRN AFTMEALHC PRN Lactulose 10 Gm/15 Ml Solution 15 Gm PO DAILYWBKFT Zyprexa Zydis (Olanzapine) 5 Mg Tab.rapdis 5 Mg PO PRN Q2HR PRN Analgesic [place] (Methyl Salicylate/Menthol) 28 Gm Oint...g. 1 Juan TP QID PRN Namenda (Memantine Hcl) 10 Mg Tablet 1 Tab PO BIDWMEALS Melatonin 3 Mg Tablet 1 Tab PO QHS Culturelle (Lactobacillus Rhamnosus Gg) 1 Each Capsule 1 Each PO BID Glucophage Xr (Metformin Hcl) 500 Mg Tab.er.24h 2 Tab PO DAILYWBKFT Nystatin 15 Gm Powder 1 Juan TP BID Milk Of Magnesia (Magnesium Hydroxide) 2,400 Mg/10 Ml Oral.susp 2,400 Mg PO HS PRN Voltaren (Diclofenac Sodium) 100 Gm Gel..gram. 1 Juan TP PRN TID PRN FOR NECK PAIN Vitamin D3 (Cholecalciferol (Vitamin D3)) 50,000 Unit Capsule 50,000 Unit PO WEEKLY Tylenol (Acetaminophen) 325 Mg Tablet 2 Tab PO PRN Q6HRS PRN Pravastatin Sodium 40 Mg Tablet 40 Mg PO DAILY Carbidopa-Levo Er 50-200 Tab (Carbidopa/Levodopa) 1 Each Tablet.er 1 Each PO HS Sinemet 25-100 Mg Tablet (Carbidopa/Levodopa) 1 Each Tablet 0.5 Tab PO Q2HR W/A Diazepam 2 Mg Tablet 2 Mg PO PRN Q6HRS PRN Mirapex (Pramipexole Di-Hcl) 0.25 Mg Tablet 0.5 Mg PO HS Linzess (Linaclotide) 145 Mcg Capsule 145 Mcg PO DAILY Divalproex Sodium 500 Mg Tablet.dr 1,500 Mg PO HS Hydrocortisone 453.6 Gm Cream..g. 1 Juan TP PRN BID PRN Ferrous Sulfate 325 Mg Tablet 650 Mg PO DAILY06 Magnesium Oxide 400 Mg Tablet 400 Mg PO BID Miconazole Nitrate 45 Gm Cream.appl 1 Juan TP PRN BID PRN Aspirin 81 Mg Tab.chew 81 Mg PO DAILY Ibuprofen 400 Mg Tablet 600 Mg PO PRN BID PRN Docusate Sodium 100 Mg Capsule 100 Mg PO BID Fluticasone Propionate Nasal [place] (Fluticasone Propionate) 16 Gm [place].susp 2 [place] NS DAILY Multivitamins (Multivitamin) 1 Each Tablet 1 Tab PO DAILY Trazodone Hcl 50 Mg Tablet 25 Mg PO DAILYWSUP Ascorbic Acid 500 Mg Tablet 500 Mg PO DAILY I have reviewed the current psychotropics carefully including drug interactions. Risk benefit ratio favors no change other than as noted in my dictated progress note. Diagnosis: Problems: (1) Healthcare-associated pneumonia (2) Acute respiratory failure with hypoxia (3) Acute and chronic respiratory failure with hypoxia (4) Anxiety disorder (5) Lewy body dementia with behavioral disturbance (6) Impulse control disorder (7) Personality disorder in adult SAY PRUETT MD May 24, 2018 22:26
[2018-05-25] MEDS: CARBIDOPA/LEVODOPA 25/100MG TABLET PO SCH ×9 (05:12→22:00)
[2018-05-25] MEDS: FERROUS SULFATE 325 MG TABLET. PO SCH (05:12)
[2018-05-25] MEDS: IPRATROPIUM BROMIDE 0.5 MG/2.5 ML NEBU. NEB SCH ×4 (05:33→20:20)
[2018-05-25 05:39] VITALS: BP 126/75
[2018-05-25] MEDS: MEMANTINE 10 MG TABLET. PO SCH ×2 (08:10→17:47)
[2018-05-25] MEDS: ASCORBIC ACID 500 MG TABLET PO SCH (08:10)
[2018-05-25] MEDS: DOCUSATE SODIUM 100 MG CAPSULE PO SCH ×2 (08:10→20:35)
[2018-05-25] MEDS: RIVASTIGMINE 13.3MG PATCH. TD SCH (08:10)
[2018-05-25] MEDS: metFORMIN XR 500 MG TAB.ER.24H PO SCH (08:10)
[2018-05-25] MEDS: LACTULOSE 20 GM/30 ML SOLUTION. PO SCH (08:10)
[2018-05-25] MEDS: PRAVASTATIN 20 MG TABLET. PO SCH (08:11)
[2018-05-25] MEDS: ASPIRIN ENTERIC COATED 81 MG TABLET.DR. PO SCH (08:11)
[2018-05-25] MEDS: SERTRALINE 25 MG TABLET. PO SCH (08:11)
[2018-05-25] MEDS: MAGNESIUM OXIDE 400 MG TABLET PO SCH ×2 (08:11→20:35)
[2018-05-25] MEDS: LACTOBACILLUS RHAMNOSUS GG 1 CAPSULE. PO SCH ×2 (08:11→20:35)
[2018-05-25] MEDS: MULTIVITAMIN with MINERAL TABLET. PO SCH (08:11)
[2018-05-25] MEDS: FLUTICASONE 50MCG/NASAL SPRAY 16GM BOTTLE. NS SCH (08:18)
[2018-05-25] MEDS: NYSTATIN TOPICAL POWDER 15GM BOTTLE. TP SCH ×2 (08:19→20:36)
[2018-05-25] MEDS: LINACLOTIDE 145 MCG CAPSULE. PO SCH (08:19)
[2018-05-25 15:40] VITALS: BP 125/84
[2018-05-25] MEDS: MELATONIN 3 MG TABLET PO SCH (20:35)
[2018-05-25] MEDS: QUEtiapine 100 MG TABLET. PO SCH (20:35)
[2018-05-25] MEDS: CARBIDOPA/LEVODOPA CR 50/200MG TABLET.SA PO SCH (20:35)
[2018-05-25] MEDS: risperiDONE 0.5 MG TABLET. PO SCH (20:35)
[2018-05-25] MEDS: traZODone 100 MG TABLET. PO SCH (20:35)
[2018-05-25] MEDS: PRAMIPEXOLE 0.5 MG TABLET. PO SCH (20:35)
[2018-05-25] MEDS: DIVALPROEX SODIUM 250 MG TABLET.DR. PO SCH (20:36)
--- NOTE | 2018-05-25 21:07 | PN ---
DATE: 05/25/2018 SUBJECTIVE: The patient was seen today, met with the staff, chart reviewed. The patient's behavior has improved. The patient has not had any falls. The patient is not indulged in any self-inflicted wounds. The patient's physical appearance has significantly improved. He is no longer having any panic attacks or difficulty breathing. OBSERVATION: VITAL SIGNS: Temperature 97.1, blood pressure 126/75, pulse 64, respirations 24, O2 sat 94%. Slept about 5 hours last night. CURRENT MEDICATIONS: The patient's current medications include trazodone 200 mg at night, Risperdal 0.5 mg at night, Exelon patch 13.3 mg daily, Zoloft 75 mg at night, Seroquel 200 mg at night and melatonin 3 mg at night. The patient is also on Depakote 1500 mg at night. Also, carbidopa/levodopa 1 at night. The patient is also on Namenda 10 mg b.i.d., olanzapine 0.5 mg b.i.d. p.r.n. ASSESSMENT: 1. Bipolar disorder mixed with psychotic features. 2. Major neurocognitive disorder, most likely Lewy body disease with behavior disturbances. MORRIS VALDEZ MD DR: CHRIST/nano JOB#: [id number] / [id number]
--- NOTE | 2018-05-25 21:52 | PN ---
DATE: 05/24/2018 This late entry for 05/24/2018 covers elements not covered in my initial note. SUBJECTIVE: I met with the patient in the evening. The patient slept 3-1/4 hours previous evening. He has been less anxious, less labile. No suicidal ideation, but abrasive with staff. REVIEW OF SYSTEMS: Ambulation impaired, in wheelchair. No CV, , pulmonary, eye, ENT system symptoms on review. MENTAL STATUS EXAM: Oriented to himself and situation. Speech coherent, can be a little pressured at times. Abstraction fair, computation impaired, language function intact, attention span short. Mood and affect, lability is improved. LABORATORY DATA: Reviewed. IMPRESSION: Bipolar disorder, unspecified, Lewy body dementia. Rest unchanged; anxiety disorder, unspecified. PLAN: Continue psychotropics from initial note for now. MAN Rosa PRUETT MD DR: MARCEL/nano JOB#: [id number] / [id number]
[2018-05-26] MEDS: CARBIDOPA/LEVODOPA 25/100MG TABLET PO SCH ×9 (05:12→22:28)
[2018-05-26] MEDS: FERROUS SULFATE 325 MG TABLET. PO SCH (05:12)
[2018-05-26] MEDS: IPRATROPIUM BROMIDE 0.5 MG/2.5 ML NEBU. NEB SCH ×4 (05:37→20:47)
[2018-05-26 05:58] VITALS: BP 149/87
[2018-05-26] MEDS: SERTRALINE 25 MG TABLET. PO SCH (08:22)
[2018-05-26] MEDS: MEMANTINE 10 MG TABLET. PO SCH ×2 (08:22→16:47)
[2018-05-26] MEDS: MAGNESIUM OXIDE 400 MG TABLET PO SCH ×2 (08:22→20:18)
[2018-05-26] MEDS: PRAVASTATIN 20 MG TABLET. PO SCH (08:22)
[2018-05-26] MEDS: metFORMIN XR 500 MG TAB.ER.24H PO SCH (08:22)
[2018-05-26] MEDS: MULTIVITAMIN with MINERAL TABLET. PO SCH (08:23)
[2018-05-26] MEDS: LACTOBACILLUS RHAMNOSUS GG 1 CAPSULE. PO SCH ×2 (08:23→20:18)
[2018-05-26] MEDS: LACTULOSE 20 GM/30 ML SOLUTION. PO SCH (08:23)
[2018-05-26] MEDS: ASPIRIN ENTERIC COATED 81 MG TABLET.DR. PO SCH (08:23)
[2018-05-26] MEDS: DOCUSATE SODIUM 100 MG CAPSULE PO SCH ×2 (08:23→20:18)
[2018-05-26] MEDS: RIVASTIGMINE 13.3MG PATCH. TD SCH (08:25)
[2018-05-26] MEDS: FLUTICASONE 50MCG/NASAL SPRAY 16GM BOTTLE. NS SCH (08:30)
[2018-05-26] MEDS: ASCORBIC ACID 500 MG TABLET PO SCH (08:30)
[2018-05-26] MEDS: NYSTATIN TOPICAL POWDER 15GM BOTTLE. TP SCH ×2 (08:31→20:19)
[2018-05-26] MEDS: LINACLOTIDE 145 MCG CAPSULE. PO SCH (08:31)
[2018-05-26 16:24] VITALS: BP 137/86
--- NOTE | 2018-05-26 20:03 | PN ---
DATE: 05/26/2018 SUBJECTIVE: The patient was seen today, met with the staff, chart reviewed. The patient's behavior has improved. The patient has not exhibited any major emotional outburst while falling to the floor. The patient is able to concentrate better. The patient able to interact with the staff and residents. The patient is not having any major physical complaints. The patient is not having any anxiety or panic attacks. The patient's medications reviewed. Currently not having any side effects to the medication. No major physical problems. ASSESSMENT: 1. Bipolar disorder mixed with psychotic features. 2. 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 PLAN: Continue with the treatment. MORRIS VALDEZ MD DR: CHRIST/nano JOB#: [id number] / [id number]
[2018-05-26] MEDS: DIVALPROEX SODIUM 250 MG TABLET.DR. PO SCH (20:18)
[2018-05-26] MEDS: CARBIDOPA/LEVODOPA CR 50/200MG TABLET.SA PO SCH (20:18)
[2018-05-26] MEDS: MELATONIN 3 MG TABLET PO SCH (20:18)
[2018-05-26] MEDS: risperiDONE 0.5 MG TABLET. PO SCH (20:19)
[2018-05-26] MEDS: PRAMIPEXOLE 0.5 MG TABLET. PO SCH (20:19)
[2018-05-26] MEDS: traZODone 100 MG TABLET. PO SCH (20:19)
[2018-05-26] MEDS: QUEtiapine 100 MG TABLET. PO SCH (20:19)
[2018-05-27] MEDS: FERROUS SULFATE 325 MG TABLET. PO SCH (04:45)
[2018-05-27] MEDS: CARBIDOPA/LEVODOPA 25/100MG TABLET PO SCH ×9 (04:45→22:00)
[2018-05-27] MEDS: IPRATROPIUM BROMIDE 0.5 MG/2.5 ML NEBU. NEB SCH ×4 (05:39→20:00)
[2018-05-27 06:00] VITALS: BP 147/82
[2018-05-27] MEDS: RIVASTIGMINE 13.3MG PATCH. TD SCH (07:43)
[2018-05-27] MEDS: MAGNESIUM OXIDE 400 MG TABLET PO SCH ×2 (07:44→19:25)
[2018-05-27] MEDS: ASCORBIC ACID 500 MG TABLET PO SCH (07:44)
[2018-05-27] MEDS: LINACLOTIDE 145 MCG CAPSULE. PO SCH (07:44)
[2018-05-27] MEDS: MEMANTINE 10 MG TABLET. PO SCH ×2 (07:44→17:09)
[2018-05-27] MEDS: LACTOBACILLUS RHAMNOSUS GG 1 CAPSULE. PO SCH ×2 (07:44→19:25)
[2018-05-27] MEDS: DOCUSATE SODIUM 100 MG CAPSULE PO SCH ×2 (07:44→19:26)
[2018-05-27] MEDS: PRAVASTATIN 20 MG TABLET. PO SCH (07:45)
[2018-05-27] MEDS: SERTRALINE 25 MG TABLET. PO SCH (07:45)
[2018-05-27] MEDS: ASPIRIN ENTERIC COATED 81 MG TABLET.DR. PO SCH (07:45)
[2018-05-27] MEDS: FLUTICASONE 50MCG/NASAL SPRAY 16GM BOTTLE. NS SCH (07:46)
[2018-05-27] MEDS: MULTIVITAMIN with MINERAL TABLET. PO SCH (07:46)
[2018-05-27] MEDS: LACTULOSE 20 GM/30 ML SOLUTION. PO SCH (07:46)
[2018-05-27] MEDS: metFORMIN XR 500 MG TAB.ER.24H PO SCH (07:46)
[2018-05-27] MEDS: NYSTATIN TOPICAL POWDER 15GM BOTTLE. TP SCH ×2 (07:47→19:28)
[2018-05-27 15:52] VITALS: BP 130/74
[2018-05-27] MEDS: traZODone 100 MG TABLET. PO SCH (19:25)
[2018-05-27] MEDS: risperiDONE 0.5 MG TABLET. PO SCH (19:26)
[2018-05-27] MEDS: CARBIDOPA/LEVODOPA CR 50/200MG TABLET.SA PO SCH (19:26)
[2018-05-27] MEDS: DIVALPROEX SODIUM 250 MG TABLET.DR. PO SCH (19:26)
[2018-05-27] MEDS: PRAMIPEXOLE 0.5 MG TABLET. PO SCH (19:26)
[2018-05-27] MEDS: MELATONIN 3 MG TABLET PO SCH (19:26)
[2018-05-27] MEDS: QUEtiapine 100 MG TABLET. PO SCH (19:27)
--- NOTE | 2018-05-28 00:03 | PN ---
DATE: 05/27/2018 SUBJECTIVE: The patient was seen today. I met with the staff, chart reviewed. The patient's behavior has improved, less anxious and tense, but continues to exhibit impulsive behaviors. No emotional lability. The patient is not having any physical complaints. The patient interacts with the staff and other residents. OBSERVATION: VITAL SIGNS: Temperature 97.4, blood pressure 147/82, pulse 55, respirations 16, O2 sat 95%. Slept about 4 hours last night. Denies of any side effects. MEDICATIONS: The patient's appetite normal. ASSESSMENT: 2. Bipolar disorder mixed with psychotic features. 2. 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 PLAN: Continue with the treatment. The patient apparently making progress. MORRIS VALDEZ MD DR: CHRIST/nano JOB#: [id number] / [id number]
[2018-05-28] MEDS: DIVALPROEX SODIUM 250 MG TABLET.DR. PO SCH ×2 (00:07→20:23)
[2018-05-28 05:52] VITALS: BP 130/86
[2018-05-28] MEDS: FERROUS SULFATE 325 MG TABLET. PO SCH (06:12)
[2018-05-28] MEDS: CARBIDOPA/LEVODOPA 25/100MG TABLET PO SCH ×9 (06:13→22:04)
[2018-05-28] MEDS: IPRATROPIUM BROMIDE 0.5 MG/2.5 ML NEBU. NEB SCH ×4 (06:30→21:14)
[2018-05-28] MEDS: RIVASTIGMINE 13.3MG PATCH. TD SCH (07:36)
[2018-05-28] MEDS: ASCORBIC ACID 500 MG TABLET PO SCH (07:37)
[2018-05-28] MEDS: LACTULOSE 20 GM/30 ML SOLUTION. PO SCH (07:37)
[2018-05-28] MEDS: ASPIRIN ENTERIC COATED 81 MG TABLET.DR. PO SCH (07:37)
[2018-05-28] MEDS: MEMANTINE 10 MG TABLET. PO SCH ×2 (07:37→16:57)
[2018-05-28] MEDS: metFORMIN XR 500 MG TAB.ER.24H PO SCH (07:37)
[2018-05-28] MEDS: LACTOBACILLUS RHAMNOSUS GG 1 CAPSULE. PO SCH ×2 (07:37→20:24)
[2018-05-28] MEDS: SERTRALINE 25 MG TABLET. PO SCH (07:37)
[2018-05-28] MEDS: PRAVASTATIN 20 MG TABLET. PO SCH (07:38)
[2018-05-28] MEDS: MAGNESIUM OXIDE 400 MG TABLET PO SCH ×2 (07:38→20:23)
[2018-05-28] MEDS: FLUTICASONE 50MCG/NASAL SPRAY 16GM BOTTLE. NS SCH (07:38)
[2018-05-28] MEDS: MULTIVITAMIN with MINERAL TABLET. PO SCH (07:38)
[2018-05-28] MEDS: NYSTATIN TOPICAL POWDER 15GM BOTTLE. TP SCH ×2 (07:38→20:24)
[2018-05-28] MEDS: DOCUSATE SODIUM 100 MG CAPSULE PO SCH ×2 (07:38→20:22)
[2018-05-28] MEDS: LINACLOTIDE 145 MCG CAPSULE. PO SCH (08:40)
[2018-05-28 16:23] VITALS: BP 145/95
[2018-05-28] MEDS: traZODone 100 MG TABLET. PO SCH (20:23)
[2018-05-28] MEDS: CARBIDOPA/LEVODOPA CR 50/200MG TABLET.SA PO SCH (20:23)
[2018-05-28] MEDS: risperiDONE 0.5 MG TABLET. PO SCH (20:23)
[2018-05-28] MEDS: MELATONIN 3 MG TABLET PO SCH (20:23)
[2018-05-28] MEDS: PRAMIPEXOLE 0.5 MG TABLET. PO SCH (20:24)
[2018-05-28] MEDS: QUEtiapine 100 MG TABLET. PO SCH ×2 (20:24→21:00)
--- NOTE | 2018-05-28 23:48 | PN ---
DATE: 05/28/2018 SUBJECTIVE: The patient was seen today, met with the staff, chart reviewed. The patient's behavior has significantly improved, still having problems with impulse control, tend to get very anxious and also some emotional lability. The patient also has frequent complaints, currently complaining of increased sedation. OBSERVATION: VITAL SIGNS: Temperature 97.7, blood pressure 130/86, pulse 55, respirations 18, O2 sat 91%. Slept only about 3 hours last night. CURRENT MEDICATIONS: The patient's current medications include trazodone 200 mg at night, Risperdal 0.5 mg at night, Exelon patch 13.3 mg daily, Zoloft 75 mg at night, Seroquel 200 mg at night, Depakote 1500 mg at night. ASSESSMENT: 1. Bipolar disorder mixed with psychotic features. 2. 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 PLAN: Continue with the treatment. We will consider decreasing Seroquel to 150 mg at night. MORRIS VALDEZ MD DR: CHRIST/nano JOB#: [id number] / [id number]
[2018-05-29] MEDS: IPRATROPIUM BROMIDE 0.5 MG/2.5 ML NEBU. NEB SCH ×4 (05:32→20:55)
[2018-05-29 05:53] VITALS: BP 160/86
[2018-05-29] MEDS: CARBIDOPA/LEVODOPA 25/100MG TABLET PO SCH ×9 (06:01→22:00)
[2018-05-29] MEDS: FERROUS SULFATE 325 MG TABLET. PO SCH (06:01)
[2018-05-29 06:29] LABS: BASO % 1 % (0-3); EOS # 0.3 x10^3/uL (0.0-0.7); EOS % 6 % (0-3); HEMOGLOBIN 13.1 g/dL (13.0-17.5); LYMPH # 1.3 x10^3/uL (1.0-4.8); LYMPH % 22 % (24-48); MEAN CORPUSCULAR HEMOGLOBIN 31 pg (25-35); MEAN CORPUSCULAR HGB CONC 34 g/dL (31-37); MEAN CORPUSCULAR VOLUME 92 fL (79-100); MONO # 0.6 x10^3/uL (0.0-1.1); MONO % 10 % (0-9); NEUT # 3.5 x10^3uL (1.8-7.7); NEUT % 61 % (31-73); PLATELET COUNT 176 x10^3/uL (140-400); RED BLOOD COUNT 4.26 x10^6/uL (4.30-5.70); WHITE BLOOD COUNT 5.7 x10^3/uL (4.0-11.0)
[2018-05-29 06:35] LABS: ALBUMIN 3.2 g/dL (3.4-5.0); ALBUMIN/GLOBULIN RATIO 0.9 (1.0-1.7); CALCIUM 9.2 mg/dL (8.5-10.1); CREATININE 0.9 mg/dL (0.7-1.3); GFR 84.4; POTASSIUM 3.9 mmol/L (3.5-5.1); TOTAL BILIRUBIN 0.5 mg/dL (0.2-1.0); TOTAL PROTEIN 6.7 g/dL (6.4-8.2)
[2018-05-29] MEDS: SERTRALINE 25 MG TABLET. PO SCH (08:37)
[2018-05-29] MEDS: ASPIRIN ENTERIC COATED 81 MG TABLET.DR. PO SCH (08:37)
[2018-05-29] MEDS: MULTIVITAMIN with MINERAL TABLET. PO SCH (08:37)
[2018-05-29] MEDS: metFORMIN XR 500 MG TAB.ER.24H PO SCH (08:37)
[2018-05-29] MEDS: ASCORBIC ACID 500 MG TABLET PO SCH (08:37)
[2018-05-29] MEDS: LACTOBACILLUS RHAMNOSUS GG 1 CAPSULE. PO SCH ×2 (08:37→20:51)
[2018-05-29] MEDS: DOCUSATE SODIUM 100 MG CAPSULE PO SCH ×2 (08:38→20:51)
[2018-05-29] MEDS: MAGNESIUM OXIDE 400 MG TABLET PO SCH ×2 (08:38→20:51)
[2018-05-29] MEDS: MEMANTINE 10 MG TABLET. PO SCH ×3 (08:38→17:41)
[2018-05-29] MEDS: LACTULOSE 20 GM/30 ML SOLUTION. PO SCH (08:39)
[2018-05-29] MEDS: RIVASTIGMINE 13.3MG PATCH. TD SCH (08:40)
[2018-05-29] MEDS: NYSTATIN TOPICAL POWDER 15GM BOTTLE. TP SCH ×2 (08:40→20:51)
[2018-05-29] MEDS: LINACLOTIDE 145 MCG CAPSULE. PO SCH (08:47)
[2018-05-29] MEDS: PRAVASTATIN 20 MG TABLET. PO SCH (08:47)
[2018-05-29] MEDS: FLUTICASONE 50MCG/NASAL SPRAY 16GM BOTTLE. NS SCH (08:47)
[2018-05-29 16:10] VITALS: BP 127/88
[2018-05-29] MEDS: DIVALPROEX ER 500 MG TAB.ER.24H PO SCH (20:50)
[2018-05-29] MEDS: traZODone 100 MG TABLET. PO SCH (20:50)
[2018-05-29] MEDS: PRAMIPEXOLE 0.5 MG TABLET. PO SCH (20:50)
[2018-05-29] MEDS: MELATONIN 3 MG TABLET PO SCH (20:51)
[2018-05-29] MEDS: CARBIDOPA/LEVODOPA CR 50/200MG TABLET.SA PO SCH (20:51)
[2018-05-29] MEDS: risperiDONE 0.5 MG TABLET. PO SCH (20:51)
[2018-05-29] MEDS: QUEtiapine 100 MG TABLET. PO SCH (20:51)
--- NOTE | 2018-05-30 03:02 | PN ---
DATE: 05/29/2018 SUBJECTIVE: The patient was seen today, met with the staff, chart reviewed. The patient's behavior has improved, still hyperactive, restless, gets agitated easily. Still has some emotional lability. Staff reports no major problems. OBSERVATION: VITAL SIGNS: Temperature 97.8, blood pressure 160/86, pulse 60, respirations 20, O2 sat 93%. Slept about 4 hours last night. CURRENT MEDICATIONS: The patient's medications reviewed. The patient's lab reviewed. The patient reports no side effects from the medications. ASSESSMENT: 1. Bipolar disorder mixed with psychotic features. 2. 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 PLAN: To continue with the treatment. MORRIS VALDEZ MD DR: CHRIST/nano JOB#: [id number] / [id number]
[2018-05-30] MEDS: CARBIDOPA/LEVODOPA 25/100MG TABLET PO SCH ×9 (05:16→21:10)
[2018-05-30] MEDS: FERROUS SULFATE 325 MG TABLET. PO SCH (05:16)
[2018-05-30] MEDS: IPRATROPIUM BROMIDE 0.5 MG/2.5 ML NEBU. NEB SCH ×4 (05:43→20:40)
[2018-05-30 05:52] VITALS: BP 141/92
[2018-05-30] MEDS: LACTULOSE 20 GM/30 ML SOLUTION. PO SCH (07:29)
[2018-05-30] MEDS: metFORMIN XR 500 MG TAB.ER.24H PO SCH (07:29)
[2018-05-30] MEDS: DOCUSATE SODIUM 100 MG CAPSULE PO SCH ×2 (07:29→21:08)
[2018-05-30] MEDS: LACTOBACILLUS RHAMNOSUS GG 1 CAPSULE. PO SCH ×2 (07:30→21:08)
[2018-05-30] MEDS: PRAVASTATIN 20 MG TABLET. PO SCH (07:30)
[2018-05-30] MEDS: ASCORBIC ACID 500 MG TABLET PO SCH (07:30)
[2018-05-30] MEDS: SERTRALINE 25 MG TABLET. PO SCH (07:30)
[2018-05-30] MEDS: MAGNESIUM OXIDE 400 MG TABLET PO SCH ×2 (07:30→21:08)
[2018-05-30] MEDS: MEMANTINE 10 MG TABLET. PO SCH ×2 (07:31→18:45)
[2018-05-30] MEDS: LINACLOTIDE 145 MCG CAPSULE. PO SCH (07:31)
[2018-05-30] MEDS: MULTIVITAMIN with MINERAL TABLET. PO SCH (07:31)
[2018-05-30] MEDS: ASPIRIN ENTERIC COATED 81 MG TABLET.DR. PO SCH (07:31)
[2018-05-30] MEDS: RIVASTIGMINE 13.3MG PATCH. TD SCH (07:33)
[2018-05-30] MEDS: FLUTICASONE 50MCG/NASAL SPRAY 16GM BOTTLE. NS SCH (07:34)
[2018-05-30] MEDS: NYSTATIN TOPICAL POWDER 15GM BOTTLE. TP SCH ×2 (07:34→21:08)
[2018-05-30 16:35] VITALS: BP 129/79
--- NOTE | 2018-05-30 18:32 | PN ---
DATE: 05/30/2018 SUBJECTIVE: The patient was seen today, met with the staff, chart reviewed. The patient is still having issues with the medication. He states that the medication making him too tired and also he want to switch Zoloft from morning to night. The patient's overall behavior has improved. No major physical problems. The patient has not made any suicidal statements and not indulged in any self destructive behaviors. OBSERVATION: VITAL SIGNS: Temperature 97.9, blood pressure 141/92, pulse 65, respirations 20, O2 sat 92%. Slept about 5 hours last night. The patient's medications reviewed. Also, lab reviewed. The patient is not having any side effects to the medications. ASSESSMENT: 1. Bipolar disorder mixed with psychotic features. 2. 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 PLAN: Continue with the treatment. MORRIS VALDEZ MD DR: CHRIST/nano JOB#: [id number] / [id number]
[2018-05-30] MEDS: CARBIDOPA/LEVODOPA CR 50/200MG TABLET.SA PO SCH (21:08)
[2018-05-30] MEDS: PRAMIPEXOLE 0.5 MG TABLET. PO SCH (21:08)
[2018-05-30] MEDS: MELATONIN 3 MG TABLET PO SCH (21:08)
[2018-05-30] MEDS: risperiDONE 0.5 MG TABLET. PO SCH (21:08)
[2018-05-30] MEDS: QUEtiapine 100 MG TABLET. PO SCH (21:09)
[2018-05-30] MEDS: traZODone 100 MG TABLET. PO SCH (21:09)
[2018-05-30] MEDS: DIVALPROEX ER 500 MG TAB.ER.24H PO SCH (21:09)
[2018-05-31] MEDS: FERROUS SULFATE 325 MG TABLET. PO SCH (05:19)
[2018-05-31] MEDS: CARBIDOPA/LEVODOPA 25/100MG TABLET PO SCH ×9 (05:19→22:00)
[2018-05-31] MEDS: IPRATROPIUM BROMIDE 0.5 MG/2.5 ML NEBU. NEB SCH ×4 (05:23→21:32)
[2018-05-31 06:26] VITALS: BP 129/85
[2018-05-31] MEDS: LACTULOSE 20 GM/30 ML SOLUTION. PO SCH (08:02)
[2018-05-31] MEDS: metFORMIN XR 500 MG TAB.ER.24H PO SCH (08:03)
[2018-05-31] MEDS: PRAVASTATIN 20 MG TABLET. PO SCH (08:03)
[2018-05-31] MEDS: LACTOBACILLUS RHAMNOSUS GG 1 CAPSULE. PO SCH ×2 (08:03→22:10)
[2018-05-31] MEDS: DOCUSATE SODIUM 100 MG CAPSULE PO SCH ×2 (08:03→22:10)
[2018-05-31] MEDS: CHOLECALCIFEROL (VITAMIN D3) 50,000 UNIT CAPSULE PO SCH (08:03)
[2018-05-31] MEDS: MAGNESIUM OXIDE 400 MG TABLET PO SCH ×2 (08:03→22:10)
[2018-05-31] MEDS: MULTIVITAMIN with MINERAL TABLET. PO SCH (08:03)
[2018-05-31] MEDS: MEMANTINE 10 MG TABLET. PO SCH ×2 (08:03→16:29)
[2018-05-31] MEDS: ASPIRIN ENTERIC COATED 81 MG TABLET.DR. PO SCH (08:03)
[2018-05-31] MEDS: LINACLOTIDE 145 MCG CAPSULE. PO SCH (08:04)
[2018-05-31] MEDS: ASCORBIC ACID 500 MG TABLET PO SCH (08:04)
[2018-05-31] MEDS: RIVASTIGMINE 13.3MG PATCH. TD SCH (08:04)
[2018-05-31] MEDS: FLUTICASONE 50MCG/NASAL SPRAY 16GM BOTTLE. NS SCH ×2 (08:07→22:09)
[2018-05-31] MEDS: NYSTATIN TOPICAL POWDER 15GM BOTTLE. TP SCH ×2 (08:07→21:00)
[2018-05-31 16:00] VITALS: BP 134/86
--- NOTE | 2018-05-31 22:00 | PN ---
DATE: 05/31/2018 SUBJECTIVE: The patient was seen today, met with the staff, chart reviewed. The patient's behavior remains the same, much improved, still anxious, restless at times. The patient is able to participate in all the activities. OBSERVATION: VITAL SIGNS: Temperature 98.0, blood pressure 134/86, pulse 66, respirations 20, O2 sat 94%. The patient slept about 4 hours last night. CURRENT MEDICATIONS: The patient's medications reviewed. LABORATORY DATA: Reviewed. The patient is not having any side effects to the medications. ASSESSMENT: 1. Bipolar disorder mixed with psychotic features. 2. 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 PLAN: To continue with the treatment. MORRIS VALDEZ MD DR: CHRIST/nano JOB#: [id number] / [id number]
[2018-05-31] MEDS: SERTRALINE 25 MG TABLET. PO SCH (22:09)
[2018-05-31] MEDS: CARBIDOPA/LEVODOPA CR 50/200MG TABLET.SA PO SCH (22:09)
[2018-05-31] MEDS: traZODone 100 MG TABLET. PO SCH (22:10)
[2018-05-31] MEDS: risperiDONE 0.5 MG TABLET. PO SCH (22:10)
[2018-05-31] MEDS: PRAMIPEXOLE 0.5 MG TABLET. PO SCH (22:10)
[2018-05-31] MEDS: MELATONIN 3 MG TABLET PO SCH (22:10)
[2018-05-31] MEDS: QUEtiapine 100 MG TABLET. PO SCH (22:10)
[2018-05-31] MEDS: DIVALPROEX ER 500 MG TAB.ER.24H PO SCH (22:11)
[2018-06-01] MEDS: IPRATROPIUM BROMIDE 0.5 MG/2.5 ML NEBU. NEB SCH ×4 (05:16→19:51)
[2018-06-01 05:46] VITALS: BP 135/87
[2018-06-01] MEDS: FERROUS SULFATE 325 MG TABLET. PO SCH (05:52)
[2018-06-01] MEDS: CARBIDOPA/LEVODOPA 25/100MG TABLET PO SCH ×9 (05:52→21:57)
[2018-06-01] MEDS: RIVASTIGMINE 13.3MG PATCH. TD SCH (08:03)
[2018-06-01] MEDS: LACTULOSE 20 GM/30 ML SOLUTION. PO SCH (08:03)
[2018-06-01] MEDS: MAGNESIUM OXIDE 400 MG TABLET PO SCH ×2 (08:04→19:35)
[2018-06-01] MEDS: LINACLOTIDE 145 MCG CAPSULE. PO SCH (08:04)
[2018-06-01] MEDS: DOCUSATE SODIUM 100 MG CAPSULE PO SCH ×2 (08:04→19:35)
[2018-06-01] MEDS: MEMANTINE 10 MG TABLET. PO SCH ×2 (08:04→15:56)
[2018-06-01] MEDS: ASPIRIN ENTERIC COATED 81 MG TABLET.DR. PO SCH (08:04)
[2018-06-01] MEDS: metFORMIN XR 500 MG TAB.ER.24H PO SCH (08:04)
[2018-06-01] MEDS: PRAVASTATIN 20 MG TABLET. PO SCH (08:04)
[2018-06-01] MEDS: LACTOBACILLUS RHAMNOSUS GG 1 CAPSULE. PO SCH ×2 (08:04→19:35)
[2018-06-01] MEDS: ASCORBIC ACID 500 MG TABLET PO SCH (08:04)
[2018-06-01] MEDS: MULTIVITAMIN with MINERAL TABLET. PO SCH (08:04)
[2018-06-01] MEDS: NYSTATIN TOPICAL POWDER 15GM BOTTLE. TP SCH ×2 (09:00→19:38)
[2018-06-01 16:04] VITALS: BP 131/87
[2018-06-01] MEDS: PRAMIPEXOLE 0.5 MG TABLET. PO SCH (19:35)
[2018-06-01] MEDS: traZODone 100 MG TABLET. PO SCH (19:35)
[2018-06-01] MEDS: MELATONIN 3 MG TABLET PO SCH (19:35)
[2018-06-01] MEDS: risperiDONE 0.5 MG TABLET. PO SCH (19:35)
[2018-06-01] MEDS: FLUTICASONE 50MCG/NASAL SPRAY 16GM BOTTLE. NS SCH (19:37)
[2018-06-01] MEDS: DIVALPROEX ER 500 MG TAB.ER.24H PO SCH (20:03)
[2018-06-01] MEDS: QUEtiapine 100 MG TABLET. PO SCH (20:03)
[2018-06-01] MEDS: SERTRALINE 25 MG TABLET. PO SCH (20:04)
[2018-06-01] MEDS: CARBIDOPA/LEVODOPA CR 50/200MG TABLET.SA PO SCH (20:04)
--- NOTE | 2018-06-01 23:07 | PN ---
DATE: 06/01/2018 SUBJECTIVE: The patient was seen today, met with the staff, chart reviewed. The patient's behavior has improved, still anxious, restless, continues to have issues with impulse control and frustration tolerance. The patient continues to be on Broda chair. He has been compliant with the medication, interactive with the staff, not having any major physical complaints. The patient's medications reviewed, not having any side effects. OBSERVATION: VITAL SIGNS: ____. ASSESSMENT: 1. Bipolar disorder mixed with psychotic features. 2. Major neurocognitive disorder, most likely Lewy body disease with behavior problems. PLAN: Continue with the treatment. MORRIS VALDEZ MD DR: CHRIST/nano JOB#: [id number] / [id number]
[2018-06-02] MEDS: ACETAMINOPHEN 325 MG TABLET PO PRN (04:49)
[2018-06-02] MEDS: FERROUS SULFATE 325 MG TABLET. PO SCH (04:49)
[2018-06-02] MEDS: CARBIDOPA/LEVODOPA 25/100MG TABLET PO SCH ×9 (04:50→22:01)
[2018-06-02] MEDS: IPRATROPIUM BROMIDE 0.5 MG/2.5 ML NEBU. NEB SCH ×4 (05:05→21:35)
[2018-06-02 05:43] VITALS: BP 123/82
[2018-06-02] MEDS: LACTULOSE 20 GM/30 ML SOLUTION. PO SCH (08:38)
[2018-06-02] MEDS: RIVASTIGMINE 13.3MG PATCH. TD SCH (08:38)
[2018-06-02] MEDS: MEMANTINE 10 MG TABLET. PO SCH ×2 (08:39→17:27)
[2018-06-02] MEDS: ASCORBIC ACID 500 MG TABLET PO SCH (08:39)
[2018-06-02] MEDS: LACTOBACILLUS RHAMNOSUS GG 1 CAPSULE. PO SCH ×2 (08:39→22:17)
[2018-06-02] MEDS: MAGNESIUM OXIDE 400 MG TABLET PO SCH ×2 (08:39→22:18)
[2018-06-02] MEDS: PRAVASTATIN 20 MG TABLET. PO SCH (08:39)
[2018-06-02] MEDS: ASPIRIN ENTERIC COATED 81 MG TABLET.DR. PO SCH (08:39)
[2018-06-02] MEDS: metFORMIN XR 500 MG TAB.ER.24H PO SCH (08:39)
[2018-06-02] MEDS: DOCUSATE SODIUM 100 MG CAPSULE PO SCH ×2 (08:39→22:17)
[2018-06-02] MEDS: MULTIVITAMIN with MINERAL TABLET. PO SCH (08:40)
[2018-06-02] MEDS: LINACLOTIDE 145 MCG CAPSULE. PO SCH (08:41)
[2018-06-02] MEDS: NYSTATIN TOPICAL POWDER 15GM BOTTLE. TP SCH ×2 (08:42→22:19)
--- NOTE | 2018-06-02 15:40 | PN ---
DATE: 06/02/2018 SUBJECTIVE: The patient was seen today, met with the staff, chart reviewed. The patient's behavior is improving, still has problems. He gets agitated easily: Multiple physical complaints and also complaining about his medications and also treatment for Parkinson's disease. The patient is easily redirected. He is able to follow directions. OBSERVATION: VITAL SIGNS: Temperature 98.1, blood pressure 123/82, pulse 74, respirations 16, O2 sat 95%. Slept only about 2 hours last night. The patient also complains he has been having problems with CPAP machine. The patient states he wakes up quite frequently at night with shortness of breath. The patient's medications reviewed. The patient's lab reviewed. ASSESSMENT: 1. Bipolar disorder mixed with psychotic features. 2. Major neurocognitive disorder, most likely Lewy body disease with behavior problems. PLAN: To continue with the treatment. MORRIS VALDEZ MD DR: CHRIST/nano JOB#: [id number] / [id number]
[2018-06-02 17:14] VITALS: BP 146/95
[2018-06-02] MEDS: FLUTICASONE 50MCG/NASAL SPRAY 16GM BOTTLE. NS SCH (22:17)
[2018-06-02] MEDS: PRAMIPEXOLE 0.5 MG TABLET. PO SCH (22:17)
[2018-06-02] MEDS: CARBIDOPA/LEVODOPA CR 50/200MG TABLET.SA PO SCH (22:17)
[2018-06-02] MEDS: traZODone 100 MG TABLET. PO SCH (22:17)
[2018-06-02] MEDS: risperiDONE 0.5 MG TABLET. PO SCH (22:18)
[2018-06-02] MEDS: SERTRALINE 25 MG TABLET. PO SCH (22:18)
[2018-06-02] MEDS: MELATONIN 3 MG TABLET PO SCH (22:18)
[2018-06-02] MEDS: DIVALPROEX ER 500 MG TAB.ER.24H PO SCH (22:19)
[2018-06-02] MEDS: QUEtiapine 100 MG TABLET. PO SCH (22:19)
[2018-06-03] MEDS: FERROUS SULFATE 325 MG TABLET. PO SCH (04:55)
[2018-06-03] MEDS: CARBIDOPA/LEVODOPA 25/100MG TABLET PO SCH ×9 (04:55→22:00)
[2018-06-03] MEDS: IPRATROPIUM BROMIDE 0.5 MG/2.5 ML NEBU. NEB SCH ×4 (05:01→20:18)
[2018-06-03 06:08] VITALS: BP 122/78
[2018-06-03 07:41] LABS: BASO % 1 % (0-3); EOS # 0.6 x10^3/uL (0.0-0.7); EOS % 9 % (0-3); HEMOGLOBIN 12.3 g/dL (13.0-17.5); LYMPH # 1.6 x10^3/uL (1.0-4.8); LYMPH % 27 % (24-48); MEAN CORPUSCULAR HEMOGLOBIN 30 pg (25-35); MEAN CORPUSCULAR HGB CONC 33 g/dL (31-37); MEAN CORPUSCULAR VOLUME 92 fL (79-100); MONO # 0.9 x10^3/uL (0.0-1.1); MONO % 15 % (0-9); NEUT # 2.9 x10^3uL (1.8-7.7); NEUT % 49 % (31-73); PLATELET COUNT 141 x10^3/uL (140-400); RED BLOOD COUNT 4.03 x10^6/uL (4.30-5.70); RED CELL DISTRIBUTION WIDTH 13.6 % (11.5-14.5)
[2018-06-03] MEDS: FLUTICASONE 50MCG/NASAL SPRAY 16GM BOTTLE. NS SCH (07:41)
[2018-06-03] MEDS: LACTULOSE 20 GM/30 ML SOLUTION. PO SCH (07:41)
[2018-06-03] MEDS: NYSTATIN TOPICAL POWDER 15GM BOTTLE. TP SCH ×2 (07:41→21:00)
[2018-06-03] MEDS: LINACLOTIDE 145 MCG CAPSULE. PO SCH (07:42)
[2018-06-03] MEDS: MAGNESIUM OXIDE 400 MG TABLET PO SCH ×2 (07:42→22:52)
[2018-06-03] MEDS: RIVASTIGMINE 13.3MG PATCH. TD SCH (07:42)
[2018-06-03] MEDS: PRAVASTATIN 20 MG TABLET. PO SCH (07:42)
[2018-06-03] MEDS: LACTOBACILLUS RHAMNOSUS GG 1 CAPSULE. PO SCH ×2 (07:42→22:52)
[2018-06-03] MEDS: DOCUSATE SODIUM 100 MG CAPSULE PO SCH ×2 (07:43→22:53)
[2018-06-03] MEDS: MEMANTINE 10 MG TABLET. PO SCH ×2 (07:43→17:08)
[2018-06-03] MEDS: ASCORBIC ACID 500 MG TABLET PO SCH (07:43)
[2018-06-03] MEDS: metFORMIN XR 500 MG TAB.ER.24H PO SCH (07:43)
[2018-06-03] MEDS: MULTIVITAMIN with MINERAL TABLET. PO SCH (07:43)
[2018-06-03] MEDS: ASPIRIN ENTERIC COATED 81 MG TABLET.DR. PO SCH (07:43)
[2018-06-03 07:57] LABS: ALBUMIN 2.9 g/dL (3.4-5.0); ALBUMIN/GLOBULIN RATIO 0.9 (1.0-1.7); CALCIUM 8.8 mg/dL (8.5-10.1); CREATININE 0.8 mg/dL (0.7-1.3); GFR 96.7; POTASSIUM 4.1 mmol/L (3.5-5.1); TOTAL BILIRUBIN 0.4 mg/dL (0.2-1.0); TOTAL PROTEIN 6.1 g/dL (6.4-8.2)
[2018-06-03 15:52] VITALS: BP 145/92
--- NOTE | 2018-06-03 19:53 | PDOC ---
Exam Note: Сергей Note: Please also refer to the separate dictated note~for this date of service dictated separately.~Patient seen individually. Discussed the patient with Nursing staff reviewed the chart.~Reviewed interim history and current functioning. Reviewed vital signs,~Labs/ Radiology~and current medications noted below. Continue current treatment with the changes noted in the dictated addendum note Assessment: Vital Signs: Vital Signs Date Time Temp Pulse Resp B/P (MAP) Pulse Ox O2 Delivery O2 Flow Rate FiO2 06/03/18 16:46 97 Room Air 06/03/18 15:52 98.3 67 18 145/92 (109) I&O Intake and Output 06/03/18 07:00 Intake Total 1560 ml Balance 1560 ml Intake Oral 1560 ml Labs: Laboratory Tests Test 06/03/18 07:16 White Blood Count 6.0 x10^3/uL (4.0-11.0) Red Blood Count 4.03 x10^6/uL (4.30-5.70) L Hemoglobin 12.3 g/dL (13.0-17.5) L Hematocrit 37.0 % (39.0-53.0) L Mean Corpuscular Volume 92 fL (79-100) Mean Corpuscular Hemoglobin 30 pg (25-35) Mean Corpuscular Hemoglobin Concent 33 g/dL (31-37) Red Cell Distribution Width 13.6 % (11.5-14.5) Platelet Count 141 x10^3/uL (140-400) Neutrophils (%) (Auto) 49 % (31-73) Lymphocytes (%) (Auto) 27 % (24-48) Monocytes (%) (Auto) 15 % (0-9) H Eosinophils (%) (Auto) 9 % (0-3) H Basophils (%) (Auto) 1 % (0-3) Neutrophils # (Auto) 2.9 x10^3uL (1.8-7.7) Lymphocytes # (Auto) 1.6 x10^3/uL (1.0-4.8) Monocytes # (Auto) 0.9 x10^3/uL (0.0-1.1) Eosinophils # (Auto) 0.6 x10^3/uL (0.0-0.7) Basophils # (Auto) 0.0 x10^3/uL (0.0-0.2) Sodium Level 139 mmol/L (136-145) Potassium Level 4.1 mmol/L (3.5-5.1) Chloride Level 100 mmol/L (98-107) Carbon Dioxide Level 32 mmol/L (21-32) Anion Gap 7 (6-14) Blood Urea Nitrogen 16 mg/dL (8-26) Creatinine 0.8 mg/dL (0.7-1.3) Estimated GFR (Cockcroft-Gault) 96.7 BUN/Creatinine Ratio 20 (6-20) Glucose Level 99 mg/dL (70-99) Calcium Level 8.8 mg/dL (8.5-10.1) Total Bilirubin 0.4 mg/dL (0.2-1.0) Aspartate Amino Transferase (AST) 10 U/L (15-37) L Alanine Aminotransferase (ALT) 7 U/L (16-63) L Alkaline Phosphatase 68 U/L (46-116) Total Protein 6.1 g/dL (6.4-8.2) L Albumin 2.9 g/dL (3.4-5.0) L Albumin/Globulin Ratio 0.9 (1.0-1.7) L Current Medications: Meds: Current Medications Acetaminophen (Tylenol) 650 mg PRN Q6HRS PRN PO PAIN / TEMP Last administered on 06/02/18at 04:49; Start 05/10/18 at 17:45 Albuterol Sulfate (Ventolin) 2.5 mg PRN Q4HRS PRN NEB COUGH; Start 05/10/18 at 17:45 Ascorbic Acid (Vitamin C) 500 mg DAILY PO Last administered on 06/03/18at 07:43 ; Start 05/11/18 at 09:00 Throat Lozenges (Cepacol Sore Throat Lozenge) 1 osito PRN Q2HR PRN MM COUGH Last administered on 05/22/18 20:01; Start 05/10/18 at 17:45 Carbidopa/Levodopa (Sinemet 25/100) 0.5 tab Q2HR W/A PO Last administered on 06/03/18 17:09; Start 05/10/18 at 18:00 Vitamin D (Vitamin D3) 50,000 unit WEEKLY PO Last administered on 05/31/18at 08 :03; Start 05/17/18 at 09:00 Diclofenac Sodium (Voltaren) 1 juan PRN TID PRN TP MUSCLE PAIN; Start 05/10/18 at 17:45 Ferrous Sulfate (Feosol) 650 mg DAILY06 PO Last administered on 06/03/18at 04: 55; Start 05/11/18 at 06:00 Guaifenesin (Mucinex Er) 600 mg BID PO Last administered on 05/21/18at 08:09; Start 05/10/18 at 21:00; Stop 05/21/18 at 15:53; Status DC Ibuprofen (Motrin) 600 mg PRN BID PRN PO INFLAMMATION PAIN Last administered on 05/13/18 16:19; Start 05/10/18 at 17:45 Ipratropium [place] (Atrovent) 0.5 mg RTQID NEB Last administered on at 16:45; Start 05/10/18 at 20:00 Linaclotide (Linzess) 145 mcg DAILY PO Last administered on 06/03/18at 07:42; Start 05/11/18 at 09:00 Al Hydroxide/Mg Hydroxide (Mylanta Plus Xs) 15 ml PRN AFTMEALHC PRN PO DYSPEPSIA; Start 05/10/18 at 17:45 Multi-Ingredient Ointment (Analgesic [place]) 1 juan QID PRN TP MUSCLE PAIN; Start 05/10/18 at 17:45 Nystatin (Nystop) 1 juan BID TP Last administered on 06/03/18at 07:41; Start at 21:00 Olanzapine (ZyPREXA ZYDIS) 5 mg PRN Q2HR PRN PO ANXIETY / AGITATION Last administered on 05/13/18at 23:10; Start 05/10/18 at 17:45 Amoxicillin/ Clavulanate Potassium (Augmentin 875/ 125mg) 1 tab BID PO Last administered on 05/21/18at 08:07; Start 05/10/18 at 21:00; Stop 05/21/18 at 15: 52; Status DC Aspirin (Aspirin Enteric Coated) 81 mg DAILYWBKFT PO Last administered on 06/03at 07:43; Start 05/11/18 at 08:00 Benzonatate (Tessalon Perle) 100 mg [id number] PO Last administered on 05/17/18at 14:04; Start 05/10/18 at 21:00; Stop 05/17/18 at 14:52; Status DC Carbidopa/Levodopa (Sinemet Cr) 1 tab.sa QHS PO Last administered on at 22:17; Start 05/10/18 at 21:00 Diazepam (Valium) 2 mg PRN Q6HRS PRN PO ANXIETY / AGITATION Last administered on 05/11/18at 08:41; Start 05/10/18 at 18:00; Stop 05/11/18 at 18:16; Status DC Divalproex Sodium (Depakote) 1,500 mg QHS PO Last administered on 05/28/18at 20 :23; Start 05/10/18 at 21:00; Stop 05/29/18 at 15:31; Status DC Docusate Sodium (Colace) 100 mg BID PO Last administered on 06/03/18at 07:43; Start 05/10/18 at 21:00 Fluticasone Propionate (Flonase) 2 spray DAILY NS Last administered on at 08:07; Start 05/11/18 at 09:00; Stop 05/31/18 at 17:36; Status DC Hydrocortisone (Cortaid) 1 juan PRN BID PRN TP RASH; Start 05/10/18 at 19:15 Lactobacillus Rhamnosus (Culturelle) 1 cap BID PO Last administered on at 07:42; Start 05/10/18 at 21:00 Lactulose (Lactulose) 15 gm DAILYWBKFT PO Last administered on 06/03/18at 07:41 ; Start 05/11/18 at 08:00 Magnesium Hydroxide (Milk Of Magnesia) 2,400 mg PRN QHS PRN PO CONSTIPATION; Start 05/10/18 at 18:30 Magnesium Oxide (Magnesium Oxide) 400 mg BID PO Last administered on at 07:42; Start 05/10/18 at 21:00 Melatonin 3 mg QHS PO Last administered on 06/02/18at 22:18; Start 05/10/18 at 21:00 Memantine (Namenda) 10 mg BIDWMEALS PO Last administered on 06/03/18at 17:08; Start 05/10/18 at 18:30 Metformin HCl (Glucophage Xr) 1,000 mg DAILYWBKFT PO Last administered on 06/03at 07:43; Start 05/11/18 at 08:00 Miconazole Nitrate (Monistat-Derm) 1 juan PRN BID PRN TP RASH; Start 05/10/18 at 21:00 Multivitamins/ Calcium (Thera-M Plus) 1 tab DAILY PO Last administered on 06/03at 07:43; Start 05/11/18 at 09:00 Pramipexole Dihydrochloride (miraPEX) 0.5 mg QHS PO Last administered on at 22:17; Start 05/10/18 at 21:00 Pravastatin Sodium (Pravachol) 40 mg DAILY PO Last administered on 06/03/18at 07:42; Start 05/11/18 at 09:00 Quetiapine Fumarate (SEROquel) 200 mg QHS PO Last administered on 05/27/18at 19 :27; Start 05/10/18 at 21:00; Stop 05/28/18 at 16:22; Status DC Rivastigmine (Exelon) 1 patch DAILY TD Last administered on 05/15/18at 08:04; Start 05/11/18 at 09:00; Stop 05/15/18 at 12:34; Status DC Sertraline HCl (Zoloft) 75 mg DAILY PO Last administered on 05/30/18at 07:30; Start 05/11/18 at 09:00; Stop 05/30/18 at 19:05; Status DC Trazodone HCl (Desyrel) 25 mg DAILYWSUP PO Last administered on 05/21/18at 15:55 ; Start 05/10/18 at 18:30; Stop 05/21/18 at 16:34; Status DC Trazodone HCl (Desyrel) 100 mg PRN QHS PRN PO INSOMNIA Last administered on 05/19/18at 23:02; Start 05/10/18 at 18:00; Stop 05/21/18 at 16:34; Status DC Trazodone HCl (Desyrel) 150 mg QHS PO Last administered on 05/20/18at 19:47; Start 05/10/18 at 21:00; Stop 05/21/18 at 16:34; Status DC Acetaminophen (Tylenol) 650 mg PRN Q6HRS PRN PO PAIN / TEMP; Start 05/10/18 at 18:15; Status UNV Multi-Ingredient Ointment (Analgesic [place]) 1 juan PRN QID PRN TP MUSCLE PAIN; Start 05/10/18 at 18:15; Status UNV Al Hydroxide/Mg Hydroxide (Mylanta Plus Xs) 15 ml PRN AFTMEALHC PRN PO DYSPEPSIA; Start 05/10/18 at 18:15; Status UNV Magnesium Hydroxide (Milk Of Magnesia) 2,400 mg PRN QHS PRN PO CONSTIPATION; Start 05/10/18 at 18:15; Status UNV Alprazolam (Xanax) 0.5 mg PRN Q6HRS PRN PO ANXIETY / AGITATION Last administered on 05/17/18at 21:09; Start 05/11/18 at 18:15 Rivastigmine (Exelon 13.3mg) 1 patch DAILY TD Last administered on 06/03/18at 07:42; Start 05/16/18 at 09:00 Risperidone (RisperDAL) 0.5 mg HS PO Last administered on 06/02/18at 22:18; Start 05/17/18 at 21:00 Trazodone HCl (Desyrel) 200 mg PRN QHS PRN PO INSOMNIA Last administered on 05/23/18at 01:00; Start 05/21/18 at 21:00 Trazodone HCl (Desyrel) 200 mg QHS PO Last administered on 06/02/18at 22:17; Start 05/21/18 at 21:00 Quetiapine Fumarate (SEROquel) 150 mg QHS PO Last administered on 06/02/18at 22 :19; Start 05/28/18 at 21:00 Divalproex Sodium (Depakote Er) 1,500 mg QHS PO Last administered on 22:19; Start 05/29/18 at 21:00 Sertraline HCl (Zoloft) 75 mg QHS PO Last administered on 06/02/18at 22:18; Start 05/31/18 at 21:00 Fluticasone Propionate (Flonase) 2 spray QHS NS Last administered on at 07:41; Start 05/31/18 at 21:00 Active Scripts Active Reported Neomycin Sulfate 500 Mg Tablet 1 Juan PO DAILY Augmentin 875-125 Tablet (Amoxicillin/Potassium Clav) 1 Each Tablet 1 Each PO BID 5 Days Albuterol Sulfate Neb Soln (Albuterol Sulfate) 2.5 Mg/3 Ml Vial.neb 2.5 Mg PRN Q4HRS PRN EXELON 9.5mg/24hr (Rivastigmine) 1 Each Patch.td24 1 Patch TD DAILY Trazodone Hcl 150 Mg Tablet 150 Mg PO HS Trazodone Hcl 100 Mg Tablet 100 Mg PO PRN QHS PRN Guaifenesin 600 Mg Tablet.er 600 Mg PO BID Zoloft (Sertraline Hcl) 25 Mg Tablet 75 Mg PO DAILY Seroquel (Quetiapine Fumarate) 200 Mg Tablet 200 Mg PO HS Ipratropium [place] 0.2 Mg/1 Ml Solution 1 Vial NEB QID Benzonatate 100 Mg Capsule 100 Mg PO TID Cepacol Sore Throat Lozenge (Benzocaine/Menthol) 1 Each Lozenge 1 Each MM PRN Q2HR PRN Mag-Al Plus Xs Suspension (Mag Hydrox/Al Hydrox/Simeth) 30 Ml Oral.susp 15 Ml PO PRN AFTMEALHC PRN Lactulose 10 Gm/15 Ml Solution 15 Gm PO DAILYWBKFT Zyprexa Zydis (Olanzapine) 5 Mg Tab.rapdis 5 Mg PO PRN Q2HR PRN Analgesic [place] (Methyl Salicylate/Menthol) 28 Gm Oint...g. 1 Juan TP QID PRN Namenda (Memantine Hcl) 10 Mg Tablet 1 Tab PO BIDWMEALS Melatonin 3 Mg Tablet 1 Tab PO QHS Culturelle (Lactobacillus Rhamnosus Gg) 1 Each Capsule 1 Each PO BID Glucophage Xr (Metformin Hcl) 500 Mg Tab.er.24h 2 Tab PO DAILYWBKFT Nystatin 15 Gm Powder 1 Juan TP BID Milk Of Magnesia (Magnesium Hydroxide) 2,400 Mg/10 Ml Oral.susp 2,400 Mg PO HS PRN Voltaren (Diclofenac Sodium) 100 Gm Gel..gram. 1 Juan TP PRN TID PRN FOR NECK PAIN Vitamin D3 (Cholecalciferol (Vitamin D3)) 50,000 Unit Capsule 50,000 Unit PO WEEKLY Tylenol (Acetaminophen) 325 Mg Tablet 2 Tab PO PRN Q6HRS PRN Pravastatin Sodium 40 Mg Tablet 40 Mg PO DAILY Carbidopa-Levo Er 50-200 Tab (Carbidopa/Levodopa) 1 Each Tablet.er 1 Each PO HS Sinemet 25-100 Mg Tablet (Carbidopa/Levodopa) 1 Each Tablet 0.5 Tab PO Q2HR W/A Diazepam 2 Mg Tablet 2 Mg PO PRN Q6HRS PRN Mirapex (Pramipexole Di-Hcl) 0.25 Mg Tablet 0.5 Mg PO HS Linzess (Linaclotide) 145 Mcg Capsule 145 Mcg PO DAILY Divalproex Sodium 500 Mg Tablet.dr 1,500 Mg PO HS Hydrocortisone 453.6 Gm Cream..g. 1 Juan TP PRN BID PRN Ferrous Sulfate 325 Mg Tablet 650 Mg PO DAILY06 Magnesium Oxide 400 Mg Tablet 400 Mg PO BID Miconazole Nitrate 45 Gm Cream.appl 1 Juan TP PRN BID PRN Aspirin 81 Mg Tab.chew 81 Mg PO DAILY Ibuprofen 400 Mg Tablet 600 Mg PO PRN BID PRN Docusate Sodium 100 Mg Capsule 100 Mg PO BID Fluticasone Propionate Nasal [place] (Fluticasone Propionate) 16 Gm [place].susp 2 [place] NS DAILY Multivitamins (Multivitamin) 1 Each Tablet 1 Tab PO DAILY Trazodone Hcl 50 Mg Tablet 25 Mg PO DAILYWSUP Ascorbic Acid 500 Mg Tablet 500 Mg PO DAILY I have reviewed the current psychotropics carefully including drug interactions. Risk benefit ratio favors no change other than as noted in my dictated progress note. Diagnosis: Problems: (1) Healthcare-associated pneumonia (2) Acute respiratory failure with hypoxia (3) Acute and chronic respiratory failure with hypoxia (4) Anxiety disorder (5) Lewy body dementia with behavioral disturbance (6) Impulse control disorder (7) Personality disorder in adult SAY PRUETT MD Jun 03, 2018 19:53
[2018-06-03] MEDS: QUEtiapine 100 MG TABLET. PO SCH (21:00)
[2018-06-03] MEDS: traZODone 100 MG TABLET. PO SCH (21:00)
[2018-06-03] MEDS: PRAMIPEXOLE 0.5 MG TABLET. PO SCH (22:52)
[2018-06-03] MEDS: risperiDONE 0.5 MG TABLET. PO SCH (22:52)
[2018-06-03] MEDS: SERTRALINE 25 MG TABLET. PO SCH (22:52)
[2018-06-03] MEDS: MELATONIN 3 MG TABLET PO SCH (22:53)
[2018-06-03] MEDS: DIVALPROEX ER 500 MG TAB.ER.24H PO SCH (22:53)
[2018-06-03] MEDS: CARBIDOPA/LEVODOPA CR 50/200MG TABLET.SA PO SCH (22:53)
[2018-06-04] MEDS: IPRATROPIUM BROMIDE 0.5 MG/2.5 ML NEBU. NEB SCH ×4 (05:37→20:28)
[2018-06-04 06:02] VITALS: BP 132/86
[2018-06-04] MEDS: CARBIDOPA/LEVODOPA 25/100MG TABLET PO SCH ×9 (06:45→22:00)
[2018-06-04] MEDS: FERROUS SULFATE 325 MG TABLET. PO SCH (06:45)
[2018-06-04] MEDS: DOCUSATE SODIUM 100 MG CAPSULE PO SCH ×2 (09:20→19:59)
[2018-06-04] MEDS: MAGNESIUM OXIDE 400 MG TABLET PO SCH ×2 (09:20→20:00)
[2018-06-04] MEDS: metFORMIN XR 500 MG TAB.ER.24H PO SCH (09:20)
[2018-06-04] MEDS: LACTOBACILLUS RHAMNOSUS GG 1 CAPSULE. PO SCH ×2 (09:20→19:58)
[2018-06-04] MEDS: PRAVASTATIN 20 MG TABLET. PO SCH (09:20)
[2018-06-04] MEDS: ASCORBIC ACID 500 MG TABLET PO SCH (09:20)
[2018-06-04] MEDS: ASPIRIN ENTERIC COATED 81 MG TABLET.DR. PO SCH (09:20)
[2018-06-04] MEDS: LACTULOSE 20 GM/30 ML SOLUTION. PO SCH (09:20)
[2018-06-04] MEDS: MULTIVITAMIN with MINERAL TABLET. PO SCH (09:21)
[2018-06-04] MEDS: LINACLOTIDE 145 MCG CAPSULE. PO SCH (09:24)
[2018-06-04] MEDS: NYSTATIN TOPICAL POWDER 15GM BOTTLE. TP SCH ×2 (09:24→20:01)
[2018-06-04] MEDS: RIVASTIGMINE 13.3MG PATCH. TD SCH (09:27)
[2018-06-04] MEDS: MEMANTINE 10 MG TABLET. PO SCH ×2 (09:27→16:22)
[2018-06-04 16:22] VITALS: BP 153/96
--- NOTE | 2018-06-04 19:38 | PDOC ---
Exam Note: Сергей Note: Please also refer to the separate dictated note~for this date of service dictated separately.~Patient seen individually. Discussed the patient with Nursing staff reviewed the chart.~Reviewed interim history and current functioning. Reviewed vital signs,~Labs/ Radiology~and current medications noted below. Continue current treatment with the changes noted in the dictated addendum note Assessment: Vital Signs: Vital Signs Date Time Temp Pulse Resp B/P (MAP) Pulse Ox O2 Delivery O2 Flow Rate FiO2 06/04/18 16:24 97 Room Air 06/04/18 16:22 97.7 67 18 153/96 (115) I&O Intake and Output 06/04/18 07:00 Intake Total 1080 ml Balance 1080 ml Intake Oral 1080 ml # Bowel Movements 1 Current Medications: Meds: Current Medications Acetaminophen (Tylenol) 650 mg PRN Q6HRS PRN PO PAIN / TEMP Last administered on 06/02/18at 04:49; Start 05/10/18 at 17:45 Albuterol Sulfate (Ventolin) 2.5 mg PRN Q4HRS PRN NEB COUGH; Start 05/10/18 at 17:45 Ascorbic Acid (Vitamin C) 500 mg DAILY PO Last administered on 06/04/18at 09:20 ; Start 05/11/18 at 09:00 Throat Lozenges (Cepacol Sore Throat Lozenge) 1 osito PRN Q2HR PRN MM COUGH Last administered on 05/22/18at 20:01; Start 05/10/18 at 17:45 Carbidopa/Levodopa (Sinemet 25/100) 0.5 tab Q2HR W/A PO Last administered on 06/04/18at 18:09; Start 05/10/18 at 18:00 Vitamin D (Vitamin D3) 50,000 unit WEEKLY PO Last administered on 05/31/18at 08 :03; Start 05/17/18 at 09:00 Diclofenac Sodium (Voltaren) 1 juan PRN TID PRN TP MUSCLE PAIN; Start 05/10/18 at 17:45 Ferrous Sulfate (Feosol) 650 mg DAILY06 PO Last administered on 06/04/18at 06: 45; Start 05/11/18 at 06:00 Guaifenesin (Mucinex Er) 600 mg BID PO Last administered on 05/21/18at 08:09; Start 05/10/18 at 21:00; Stop 05/21/18 at 15:53; Status DC Ibuprofen (Motrin) 600 mg PRN BID PRN PO INFLAMMATION PAIN Last administered on 05/13/18 16:19; Start 05/10/18 at 17:45 Ipratropium [place] (Atrovent) 0.5 mg RTQID NEB Last administered on 16:24; Start 05/10/18 at 20:00 Linaclotide (Linzess) 145 mcg DAILY PO Last administered on 06/04/18 09:24; Start 05/11/18 at 09:00 Al Hydroxide/Mg Hydroxide (Mylanta Plus Xs) 15 ml PRN AFTMEALHC PRN PO DYSPEPSIA; Start 05/10/18 at 17:45 Multi-Ingredient Ointment (Analgesic [place]) 1 juan QID PRN TP MUSCLE PAIN; Start 05/10/18 at 17:45 Nystatin (Nystop) 1 juan BID TP Last administered on 06/04/18at 09:24; Start at 21:00 Olanzapine (ZyPREXA ZYDIS) 5 mg PRN Q2HR PRN PO ANXIETY / AGITATION Last administered on 05/13/18at 23:10; Start 05/10/18 at 17:45 Amoxicillin/ Clavulanate Potassium (Augmentin 875/ 125mg) 1 tab BID PO Last administered on 05/21/18at 08:07; Start 05/10/18 at 21:00; Stop 05/21/18 at 15: 52; Status DC Aspirin (Aspirin Enteric Coated) 81 mg DAILYWBKFT PO Last administered on 06/04at 09:20; Start 05/11/18 at 08:00 Benzonatate (Tessalon Perle) 100 mg [id number] PO Last administered on 05/17/18at 14:04; Start 05/10/18 at 21:00; Stop 05/17/18 at 14:52; Status DC Carbidopa/Levodopa (Sinemet Cr) 1 tab.sa QHS PO Last administered on at 22:53; Start 05/10/18 at 21:00 Diazepam (Valium) 2 mg PRN Q6HRS PRN PO ANXIETY / AGITATION Last administered on 05/11/18at 08:41; Start 05/10/18 at 18:00; Stop 05/11/18 at 18:16; Status DC Divalproex Sodium (Depakote) 1,500 mg QHS PO Last administered on 05/28/18at 20 :23; Start 05/10/18 at 21:00; Stop 05/29/18 at 15:31; Status DC Docusate Sodium (Colace) 100 mg BID PO Last administered on 06/04/18at 09:20; Start 05/10/18 at 21:00 Fluticasone Propionate (Flonase) 2 spray DAILY NS Last administered on at 08:07; Start 05/11/18 at 09:00; Stop 05/31/18 at 17:36; Status DC Hydrocortisone (Cortaid) 1 juan PRN BID PRN TP RASH; Start 05/10/18 at 19:15 Lactobacillus Rhamnosus (Culturelle) 1 cap BID PO Last administered on at 09:20; Start 05/10/18 at 21:00 Lactulose (Lactulose) 15 gm DAILYWBKFT PO Last administered on 06/04/18at 09:20 ; Start 05/11/18 at 08:00 Magnesium Hydroxide (Milk Of Magnesia) 2,400 mg PRN QHS PRN PO CONSTIPATION; Start 05/10/18 at 18:30 Magnesium Oxide (Magnesium Oxide) 400 mg BID PO Last administered on at 09:20; Start 05/10/18 at 21:00 Melatonin 3 mg QHS PO Last administered on 06/03/18at 22:53; Start 05/10/18 at 21:00 Memantine (Namenda) 10 mg BIDWMEALS PO Last administered on 06/04/18at 16:22; Start 05/10/18 at 18:30 Metformin HCl (Glucophage Xr) 1,000 mg DAILYWBKFT PO Last administered on 06/04at 09:20; Start 05/11/18 at 08:00 Miconazole Nitrate (Monistat-Derm) 1 juan PRN BID PRN TP RASH; Start 05/10/18 at 21:00 Multivitamins/ Calcium (Thera-M Plus) 1 tab DAILY PO Last administered on 06/04at 09:21; Start 05/11/18 at 09:00 Pramipexole Dihydrochloride (miraPEX) 0.5 mg QHS PO Last administered on at 22:52; Start 05/10/18 at 21:00 Pravastatin Sodium (Pravachol) 40 mg DAILY PO Last administered on 06/04/18at 09:20; Start 05/11/18 at 09:00 Quetiapine Fumarate (SEROquel) 200 mg QHS PO Last administered on 05/27/18at 19 :27; Start 05/10/18 at 21:00; Stop 05/28/18 at 16:22; Status DC Rivastigmine (Exelon) 1 patch DAILY TD Last administered on 05/15/18at 08:04; Start 05/11/18 at 09:00; Stop 05/15/18 at 12:34; Status DC Sertraline HCl (Zoloft) 75 mg DAILY PO Last administered on 05/30/18at 07:30; Start 05/11/18 at 09:00; Stop 05/30/18 at 19:05; Status DC Trazodone HCl (Desyrel) 25 mg DAILYWSUP PO Last administered on 05/21/18at 15:55 ; Start 05/10/18 at 18:30; Stop 05/21/18 at 16:34; Status DC Trazodone HCl (Desyrel) 100 mg PRN QHS PRN PO INSOMNIA Last administered on 05/19/18at 23:02; Start 05/10/18 at 18:00; Stop 05/21/18 at 16:34; Status DC Trazodone HCl (Desyrel) 150 mg QHS PO Last administered on 05/20/18at 19:47; Start 05/10/18 at 21:00; Stop 05/21/18 at 16:34; Status DC Acetaminophen (Tylenol) 650 mg PRN Q6HRS PRN PO PAIN / TEMP; Start 05/10/18 at 18:15; Status UNV Multi-Ingredient Ointment (Analgesic [place]) 1 juan PRN QID PRN TP MUSCLE PAIN; Start 05/10/18 at 18:15; Status UNV Al Hydroxide/Mg Hydroxide (Mylanta Plus Xs) 15 ml PRN AFTMEALHC PRN PO DYSPEPSIA; Start 05/10/18 at 18:15; Status UNV Magnesium Hydroxide (Milk Of Magnesia) 2,400 mg PRN QHS PRN PO CONSTIPATION; Start 05/10/18 at 18:15; Status UNV Alprazolam (Xanax) 0.5 mg PRN Q6HRS PRN PO ANXIETY / AGITATION Last administered on 05/17/18 21:09; Start 05/11/18 at 18:15 Rivastigmine (Exelon 13.3mg) 1 patch DAILY TD Last administered on 06/04/18at 09:27; Start 05/16/18 at 09:00 Risperidone (RisperDAL) 0.5 mg HS PO Last administered on 06/03/18 22:52; Start 05/17/18 at 21:00 Trazodone HCl (Desyrel) 200 mg PRN QHS PRN PO INSOMNIA Last administered on 01:00; Start 05/21/18 at 21:00 Trazodone HCl (Desyrel) 200 mg QHS PO Last administered on 06/03/18at 21:00; Start 05/21/18 at 21:00 Quetiapine Fumarate (SEROquel) 150 mg QHS PO Last administered on 06/03/18at 21 :00; Start 05/28/18 at 21:00 Divalproex Sodium (Depakote Er) 1,500 mg QHS PO Last administered on at 22:53; Start 05/29/18 at 21:00 Sertraline HCl (Zoloft) 75 mg QHS PO Last administered on 06/03/18 22:52; Start 05/31/18 at 21:00 Fluticasone Propionate (Flonase) 2 spray QHS NS Last administered on at 07:41; Start 05/31/18 at 21:00 Active Scripts Active Reported Neomycin Sulfate 500 Mg Tablet 1 Juan PO DAILY Augmentin 875-125 Tablet (Amoxicillin/Potassium Clav) 1 Each Tablet 1 Each PO BID 5 Days Albuterol Sulfate Neb Soln (Albuterol Sulfate) 2.5 Mg/3 Ml Vial.neb 2.5 Mg PRN Q4HRS PRN EXELON 9.5mg/24hr (Rivastigmine) 1 Each Patch.td24 1 Patch TD DAILY Trazodone Hcl 150 Mg Tablet 150 Mg PO HS Trazodone Hcl 100 Mg Tablet 100 Mg PO PRN QHS PRN Guaifenesin 600 Mg Tablet.er 600 Mg PO BID Zoloft (Sertraline Hcl) 25 Mg Tablet 75 Mg PO DAILY Seroquel (Quetiapine Fumarate) 200 Mg Tablet 200 Mg PO HS Ipratropium [place] 0.2 Mg/1 Ml Solution 1 Vial NEB QID Benzonatate 100 Mg Capsule 100 Mg PO TID Cepacol Sore Throat Lozenge (Benzocaine/Menthol) 1 Each Lozenge 1 Each MM PRN Q2HR PRN Mag-Al Plus Xs Suspension (Mag Hydrox/Al Hydrox/Simeth) 30 Ml Oral.susp 15 Ml PO PRN AFTMEALHC PRN Lactulose 10 Gm/15 Ml Solution 15 Gm PO DAILYWBKFT Zyprexa Zydis (Olanzapine) 5 Mg Tab.rapdis 5 Mg PO PRN Q2HR PRN Analgesic [place] (Methyl Salicylate/Menthol) 28 Gm Oint...g. 1 Juan TP QID PRN Namenda (Memantine Hcl) 10 Mg Tablet 1 Tab PO BIDWMEALS Melatonin 3 Mg Tablet 1 Tab PO QHS Culturelle (Lactobacillus Rhamnosus Gg) 1 Each Capsule 1 Each PO BID Glucophage Xr (Metformin Hcl) 500 Mg Tab.er.24h 2 Tab PO DAILYWBKFT Nystatin 15 Gm Powder 1 Juan TP BID Milk Of Magnesia (Magnesium Hydroxide) 2,400 Mg/10 Ml Oral.susp 2,400 Mg PO HS PRN Voltaren (Diclofenac Sodium) 100 Gm Gel..gram. 1 Juan TP PRN TID PRN FOR NECK PAIN Vitamin D3 (Cholecalciferol (Vitamin D3)) 50,000 Unit Capsule 50,000 Unit PO WEEKLY Tylenol (Acetaminophen) 325 Mg Tablet 2 Tab PO PRN Q6HRS PRN Pravastatin Sodium 40 Mg Tablet 40 Mg PO DAILY Carbidopa-Levo Er 50-200 Tab (Carbidopa/Levodopa) 1 Each Tablet.er 1 Each PO HS Sinemet 25-100 Mg Tablet (Carbidopa/Levodopa) 1 Each Tablet 0.5 Tab PO Q2HR W/A Diazepam 2 Mg Tablet 2 Mg PO PRN Q6HRS PRN Mirapex (Pramipexole Di-Hcl) 0.25 Mg Tablet 0.5 Mg PO HS Linzess (Linaclotide) 145 Mcg Capsule 145 Mcg PO DAILY Divalproex Sodium 500 Mg Tablet.dr 1,500 Mg PO HS Hydrocortisone 453.6 Gm Cream..g. 1 Juan TP PRN BID PRN Ferrous Sulfate 325 Mg Tablet 650 Mg PO DAILY06 Magnesium Oxide 400 Mg Tablet 400 Mg PO BID Miconazole Nitrate 45 Gm Cream.appl 1 Juan TP PRN BID PRN Aspirin 81 Mg Tab.chew 81 Mg PO DAILY Ibuprofen 400 Mg Tablet 600 Mg PO PRN BID PRN Docusate Sodium 100 Mg Capsule 100 Mg PO BID Fluticasone Propionate Nasal [place] (Fluticasone Propionate) 16 Gm [place].susp 2 [place] NS DAILY Multivitamins (Multivitamin) 1 Each Tablet 1 Tab PO DAILY Trazodone Hcl 50 Mg Tablet 25 Mg PO DAILYWSUP Ascorbic Acid 500 Mg Tablet 500 Mg PO DAILY I have reviewed the current psychotropics carefully including drug interactions. Risk benefit ratio favors no change other than as noted in my dictated progress note. Diagnosis: Problems: (1) Healthcare-associated pneumonia (2) Acute respiratory failure with hypoxia (3) Acute and chronic respiratory failure with hypoxia (4) Anxiety disorder (5) Lewy body dementia with behavioral disturbance (6) Impulse control disorder (7) Personality disorder in adult SAY PRUETT MD Jun 04, 2018 19:38
[2018-06-04] MEDS: CARBIDOPA/LEVODOPA CR 50/200MG TABLET.SA PO SCH (19:58)
[2018-06-04] MEDS: QUEtiapine 100 MG TABLET. PO SCH (19:59)
[2018-06-04] MEDS: PRAMIPEXOLE 0.5 MG TABLET. PO SCH (19:59)
[2018-06-04] MEDS: risperiDONE 0.5 MG TABLET. PO SCH (19:59)
[2018-06-04] MEDS: MELATONIN 3 MG TABLET PO SCH (19:59)
[2018-06-04] MEDS: SERTRALINE 25 MG TABLET. PO SCH (20:00)
[2018-06-04] MEDS: traZODone 100 MG TABLET. PO SCH (20:00)
[2018-06-04] MEDS: FLUTICASONE 50MCG/NASAL SPRAY 16GM BOTTLE. NS SCH (20:05)
[2018-06-04] MEDS: DIVALPROEX ER 500 MG TAB.ER.24H PO SCH (20:36)
--- NOTE | 2018-06-04 22:08 | PN ---
DATE: 06/03/2018 PSYCHIATRIC PROGRESS NOTE This late entry 06/03/2018 covers elements not covered in my initial note. SUBJECTIVE: I met with the patient in the evening and discussed with Dr. Valle who covered for me over the past 1 week or so. The patient slept 3 hours previous night. He has denied any active suicidal ideation and we will discontinue the one-on-one during the day. Nursing staff would like to still maintain the one-on-one at night because that is when he acts out more than during the day and we will reassess that situation in a day or so. REVIEW OF SYSTEMS: Ambulation impaired, in wheelchair. No CV, , pulmonary, eye, ENT system symptoms on review. MENTAL STATUS EXAM: Oriented to himself and situation. Speech is coherent, somewhat pressured at times typical for him. Abstraction fair, computation impaired, language function intact. Mood and affect is improved. LABORATORY DATA: Reviewed. IMPRESSION: Bipolar 1 disorder, unspecified, Lewy body dementia, anxiety disorder, unspecified; impulse control disorder, unspecified. PLAN: No change from initial note. Also discussed with social service staff. Tentative transition to long term later this week. MAN Rosa PRUETT MD DR: MARCEL/nano JOB#: [id number] / [id number]
[2018-06-05] MEDS: CARBIDOPA/LEVODOPA 25/100MG TABLET PO SCH ×9 (04:58→22:00)
[2018-06-05] MEDS: FERROUS SULFATE 325 MG TABLET. PO SCH (04:58)
[2018-06-05] MEDS: IPRATROPIUM BROMIDE 0.5 MG/2.5 ML NEBU. NEB SCH ×4 (05:18→20:29)
[2018-06-05 05:53] VITALS: BP 114/72
[2018-06-05] MEDS: RIVASTIGMINE 13.3MG PATCH. TD SCH (09:30)
[2018-06-05] MEDS: PRAVASTATIN 20 MG TABLET. PO SCH (09:31)
[2018-06-05] MEDS: metFORMIN XR 500 MG TAB.ER.24H PO SCH (09:33)
[2018-06-05] MEDS: MULTIVITAMIN with MINERAL TABLET. PO SCH (09:33)
[2018-06-05] MEDS: ASCORBIC ACID 500 MG TABLET PO SCH (09:34)
[2018-06-05] MEDS: ASPIRIN ENTERIC COATED 81 MG TABLET.DR. PO SCH (09:34)
[2018-06-05] MEDS: MAGNESIUM OXIDE 400 MG TABLET PO SCH ×2 (09:34→21:17)
[2018-06-05] MEDS: MEMANTINE 10 MG TABLET. PO SCH ×2 (09:34→16:04)
[2018-06-05] MEDS: LINACLOTIDE 145 MCG CAPSULE. PO SCH (09:34)
[2018-06-05] MEDS: LACTOBACILLUS RHAMNOSUS GG 1 CAPSULE. PO SCH ×2 (09:34→21:20)
[2018-06-05] MEDS: DOCUSATE SODIUM 100 MG CAPSULE PO SCH ×2 (09:34→21:22)
[2018-06-05] MEDS: NYSTATIN TOPICAL POWDER 15GM BOTTLE. TP SCH ×2 (09:35→21:24)
[2018-06-05] MEDS: LACTULOSE 20 GM/30 ML SOLUTION. PO SCH (09:35)
[2018-06-05 16:05] VITALS: BP 168/97
--- NOTE | 2018-06-05 19:58 | PDOC ---
Exam Note: Сергей Note: Please also refer to the separate dictated note~for this date of service dictated separately.~Patient seen individually. Discussed the patient with Nursing staff reviewed the chart.~Reviewed interim history and current functioning. Reviewed vital signs,~Labs/ Radiology~and current medications noted below. Continue current treatment with the changes noted in the dictated addendum note Assessment: Vital Signs: Vital Signs Date Time Temp Pulse Resp B/P (MAP) Pulse Ox O2 Delivery O2 Flow Rate FiO2 06/05/18 16:31 95 Room Air 06/05/18 16:05 98.8 75 16 168/97 (120) I&O Intake and Output 06/05/18 07:00 Intake Total 2160 ml Balance 2160 ml Intake Oral 2160 ml # Bowel Movements 1 Current Medications: Meds: Current Medications Acetaminophen (Tylenol) 650 mg PRN Q6HRS PRN PO PAIN / TEMP Last administered on 06/02/18at 04:49; Start 05/10/18 at 17:45 Albuterol Sulfate (Ventolin) 2.5 mg PRN Q4HRS PRN NEB COUGH; Start 05/10/18 at 17:45 Ascorbic Acid (Vitamin C) 500 mg DAILY PO Last administered on 06/05/18at 09:34 ; Start 05/11/18 at 09:00 Throat Lozenges (Cepacol Sore Throat Lozenge) 1 osito PRN Q2HR PRN MM COUGH Last administered on 05/22/18at 20:01; Start 05/10/18 at 17:45 Carbidopa/Levodopa (Sinemet 25/100) 0.5 tab Q2HR W/A PO Last administered on 06/05/18at 18:17; Start 05/10/18 at 18:00 Vitamin D (Vitamin D3) 50,000 unit WEEKLY PO Last administered on 05/31/18at 08 :03; Start 05/17/18 at 09:00 Diclofenac Sodium (Voltaren) 1 juan PRN TID PRN TP MUSCLE PAIN; Start 05/10/18 at 17:45 Ferrous Sulfate (Feosol) 650 mg DAILY06 PO Last administered on 06/05/18at 04: 58; Start 05/11/18 at 06:00 Guaifenesin (Mucinex Er) 600 mg BID PO Last administered on 05/21/18at 08:09; Start 05/10/18 at 21:00; Stop 05/21/18 at 15:53; Status DC Ibuprofen (Motrin) 600 mg PRN BID PRN PO INFLAMMATION PAIN Last administered on 05/13/18 16:19; Start 05/10/18 at 17:45 Ipratropium [place] (Atrovent) 0.5 mg RTQID NEB Last administered on 16:31; Start 05/10/18 at 20:00 Linaclotide (Linzess) 145 mcg DAILY PO Last administered on 06/05/18 09:34; Start 05/11/18 at 09:00 Al Hydroxide/Mg Hydroxide (Mylanta Plus Xs) 15 ml PRN AFTMEALHC PRN PO DYSPEPSIA; Start 05/10/18 at 17:45 Multi-Ingredient Ointment (Analgesic [place]) 1 juan QID PRN TP MUSCLE PAIN; Start 05/10/18 at 17:45 Nystatin (Nystop) 1 juan BID TP Last administered on 06/05/18at 09:35; Start at 21:00 Olanzapine (ZyPREXA ZYDIS) 5 mg PRN Q2HR PRN PO ANXIETY / AGITATION Last administered on 05/13/18at 23:10; Start 05/10/18 at 17:45 Amoxicillin/ Clavulanate Potassium (Augmentin 875/ 125mg) 1 tab BID PO Last administered on 05/21/18 08:07; Start 05/10/18 at 21:00; Stop 05/21/18 at 15: 52; Status DC Aspirin (Aspirin Enteric Coated) 81 mg DAILYWBKFT PO Last administered on 06/05at 09:34; Start 05/11/18 at 08:00 Benzonatate (Tessalon Perle) 100 mg [id number] PO Last administered on 05/17/18at 14:04; Start 05/10/18 at 21:00; Stop 05/17/18 at 14:52; Status DC Carbidopa/Levodopa (Sinemet Cr) 1 tab.sa QHS PO Last administered on 19:58; Start 05/10/18 at 21:00 Diazepam (Valium) 2 mg PRN Q6HRS PRN PO ANXIETY / AGITATION Last administered on 05/11/18at 08:41; Start 05/10/18 at 18:00; Stop 05/11/18 at 18:16; Status DC Divalproex Sodium (Depakote) 1,500 mg QHS PO Last administered on 05/28/18at 20 :23; Start 05/10/18 at 21:00; Stop 05/29/18 at 15:31; Status DC Docusate Sodium (Colace) 100 mg BID PO Last administered on 06/05/18at 09:34; Start 05/10/18 at 21:00 Fluticasone Propionate (Flonase) 2 spray DAILY NS Last administered on at 08:07; Start 05/11/18 at 09:00; Stop 05/31/18 at 17:36; Status DC Hydrocortisone (Cortaid) 1 juan PRN BID PRN TP RASH; Start 05/10/18 at 19:15 Lactobacillus Rhamnosus (Culturelle) 1 cap BID PO Last administered on at 09:34; Start 05/10/18 at 21:00 Lactulose (Lactulose) 15 gm DAILYWBKFT PO Last administered on 06/05/18at 09:35 ; Start 05/11/18 at 08:00 Magnesium Hydroxide (Milk Of Magnesia) 2,400 mg PRN QHS PRN PO CONSTIPATION; Start 05/10/18 at 18:30 Magnesium Oxide (Magnesium Oxide) 400 mg BID PO Last administered on at 09:34; Start 05/10/18 at 21:00 Melatonin 3 mg QHS PO Last administered on 06/04/18at 19:59; Start 05/10/18 at 21:00 Memantine (Namenda) 10 mg BIDWMEALS PO Last administered on 06/05/18at 16:04; Start 05/10/18 at 18:30 Metformin HCl (Glucophage Xr) 1,000 mg DAILYWBKFT PO Last administered on 06/05at 09:33; Start 05/11/18 at 08:00 Miconazole Nitrate (Monistat-Derm) 1 juan PRN BID PRN TP RASH; Start 05/10/18 at 21:00 Multivitamins/ Calcium (Thera-M Plus) 1 tab DAILY PO Last administered on 06/05at 09:33; Start 05/11/18 at 09:00 Pramipexole Dihydrochloride (miraPEX) 0.5 mg QHS PO Last administered on at 19:59; Start 05/10/18 at 21:00 Pravastatin Sodium (Pravachol) 40 mg DAILY PO Last administered on 06/05/18at 09:31; Start 05/11/18 at 09:00 Quetiapine Fumarate (SEROquel) 200 mg QHS PO Last administered on 05/27/18at 19 :27; Start 05/10/18 at 21:00; Stop 05/28/18 at 16:22; Status DC Rivastigmine (Exelon) 1 patch DAILY TD Last administered on 05/15/18at 08:04; Start 05/11/18 at 09:00; Stop 05/15/18 at 12:34; Status DC Sertraline HCl (Zoloft) 75 mg DAILY PO Last administered on 05/30/18at 07:30; Start 05/11/18 at 09:00; Stop 05/30/18 at 19:05; Status DC Trazodone HCl (Desyrel) 25 mg DAILYWSUP PO Last administered on 05/21/18at 15:55 ; Start 05/10/18 at 18:30; Stop 05/21/18 at 16:34; Status DC Trazodone HCl (Desyrel) 100 mg PRN QHS PRN PO INSOMNIA Last administered on 05/19/18at 23:02; Start 05/10/18 at 18:00; Stop 05/21/18 at 16:34; Status DC Trazodone HCl (Desyrel) 150 mg QHS PO Last administered on 05/20/18at 19:47; Start 05/10/18 at 21:00; Stop 05/21/18 at 16:34; Status DC Acetaminophen (Tylenol) 650 mg PRN Q6HRS PRN PO PAIN / TEMP; Start 05/10/18 at 18:15; Status UNV Multi-Ingredient Ointment (Analgesic [place]) 1 juan PRN QID PRN TP MUSCLE PAIN; Start 05/10/18 at 18:15; Status UNV Al Hydroxide/Mg Hydroxide (Mylanta Plus Xs) 15 ml PRN AFTMEALHC PRN PO DYSPEPSIA; Start 05/10/18 at 18:15; Status UNV Magnesium Hydroxide (Milk Of Magnesia) 2,400 mg PRN QHS PRN PO CONSTIPATION; Start 05/10/18 at 18:15; Status UNV Alprazolam (Xanax) 0.5 mg PRN Q6HRS PRN PO ANXIETY / AGITATION Last administered on 05/17/18at 21:09; Start 05/11/18 at 18:15 Rivastigmine (Exelon 13.3mg) 1 patch DAILY TD Last administered on 06/05/18at 09:30; Start 05/16/18 at 09:00 Risperidone (RisperDAL) 0.5 mg HS PO Last administered on 06/04/18at 19:59; Start 05/17/18 at 21:00 Trazodone HCl (Desyrel) 200 mg PRN QHS PRN PO INSOMNIA Last administered on 05/23/18at 01:00; Start 05/21/18 at 21:00 Trazodone HCl (Desyrel) 200 mg QHS PO Last administered on 06/04/18at 20:00; Start 05/21/18 at 21:00 Quetiapine Fumarate (SEROquel) 150 mg QHS PO Last administered on 06/04/18at 19 :59; Start 05/28/18 at 21:00 Divalproex Sodium (Depakote Er) 1,500 mg QHS PO Last administered on at 20:36; Start 05/29/18 at 21:00 Sertraline HCl (Zoloft) 75 mg QHS PO Last administered on 06/04/18at 20:00; Start 05/31/18 at 21:00 Fluticasone Propionate (Flonase) 2 spray QHS NS Last administered on at 20:05; Start 05/31/18 at 21:00 Active Scripts Active Reported Neomycin Sulfate 500 Mg Tablet 1 Juan PO DAILY Augmentin 875-125 Tablet (Amoxicillin/Potassium Clav) 1 Each Tablet 1 Each PO BID 5 Days Albuterol Sulfate Neb Soln (Albuterol Sulfate) 2.5 Mg/3 Ml Vial.neb 2.5 Mg PRN Q4HRS PRN EXELON 9.5mg/24hr (Rivastigmine) 1 Each Patch.td24 1 Patch TD DAILY Trazodone Hcl 150 Mg Tablet 150 Mg PO HS Trazodone Hcl 100 Mg Tablet 100 Mg PO PRN QHS PRN Guaifenesin 600 Mg Tablet.er 600 Mg PO BID Zoloft (Sertraline Hcl) 25 Mg Tablet 75 Mg PO DAILY Seroquel (Quetiapine Fumarate) 200 Mg Tablet 200 Mg PO HS Ipratropium [place] 0.2 Mg/1 Ml Solution 1 Vial NEB QID Benzonatate 100 Mg Capsule 100 Mg PO TID Cepacol Sore Throat Lozenge (Benzocaine/Menthol) 1 Each Lozenge 1 Each MM PRN Q2HR PRN Mag-Al Plus Xs Suspension (Mag Hydrox/Al Hydrox/Simeth) 30 Ml Oral.susp 15 Ml PO PRN AFTMEALHC PRN Lactulose 10 Gm/15 Ml Solution 15 Gm PO DAILYWBKFT Zyprexa Zydis (Olanzapine) 5 Mg Tab.rapdis 5 Mg PO PRN Q2HR PRN Analgesic [place] (Methyl Salicylate/Menthol) 28 Gm Oint...g. 1 Juan TP QID PRN Namenda (Memantine Hcl) 10 Mg Tablet 1 Tab PO BIDWMEALS Melatonin 3 Mg Tablet 1 Tab PO QHS Culturelle (Lactobacillus Rhamnosus Gg) 1 Each Capsule 1 Each PO BID Glucophage Xr (Metformin Hcl) 500 Mg Tab.er.24h 2 Tab PO DAILYWBKFT Nystatin 15 Gm Powder 1 Juan TP BID Milk Of Magnesia (Magnesium Hydroxide) 2,400 Mg/10 Ml Oral.susp 2,400 Mg PO HS PRN Voltaren (Diclofenac Sodium) 100 Gm Gel..gram. 1 Juan TP PRN TID PRN FOR NECK PAIN Vitamin D3 (Cholecalciferol (Vitamin D3)) 50,000 Unit Capsule 50,000 Unit PO WEEKLY Tylenol (Acetaminophen) 325 Mg Tablet 2 Tab PO PRN Q6HRS PRN Pravastatin Sodium 40 Mg Tablet 40 Mg PO DAILY Carbidopa-Levo Er 50-200 Tab (Carbidopa/Levodopa) 1 Each Tablet.er 1 Each PO HS Sinemet 25-100 Mg Tablet (Carbidopa/Levodopa) 1 Each Tablet 0.5 Tab PO Q2HR W/A Diazepam 2 Mg Tablet 2 Mg PO PRN Q6HRS PRN Mirapex (Pramipexole Di-Hcl) 0.25 Mg Tablet 0.5 Mg PO HS Linzess (Linaclotide) 145 Mcg Capsule 145 Mcg PO DAILY Divalproex Sodium 500 Mg Tablet.dr 1,500 Mg PO HS Hydrocortisone 453.6 Gm Cream..g. 1 Juan TP PRN BID PRN Ferrous Sulfate 325 Mg Tablet 650 Mg PO DAILY06 Magnesium Oxide 400 Mg Tablet 400 Mg PO BID Miconazole Nitrate 45 Gm Cream.appl 1 Juan TP PRN BID PRN Aspirin 81 Mg Tab.chew 81 Mg PO DAILY Ibuprofen 400 Mg Tablet 600 Mg PO PRN BID PRN Docusate Sodium 100 Mg Capsule 100 Mg PO BID Fluticasone Propionate Nasal [place] (Fluticasone Propionate) 16 Gm [place].susp 2 [place] NS DAILY Multivitamins (Multivitamin) 1 Each Tablet 1 Tab PO DAILY Trazodone Hcl 50 Mg Tablet 25 Mg PO DAILYWSUP Ascorbic Acid 500 Mg Tablet 500 Mg PO DAILY I have reviewed the current psychotropics carefully including drug interactions. Risk benefit ratio favors no change other than as noted in my dictated progress note. Diagnosis: Problems: (1) Healthcare-associated pneumonia (2) Acute respiratory failure with hypoxia (3) Acute and chronic respiratory failure with hypoxia (4) Anxiety disorder (5) Lewy body dementia with behavioral disturbance (6) Impulse control disorder (7) Personality disorder in adult SAY PRUETT MD Jun 05, 2018 19:57
[2018-06-05] MEDS: CARBIDOPA/LEVODOPA CR 50/200MG TABLET.SA PO SCH (20:51)
--- NOTE | 2018-06-05 21:15 | PN ---
DATE: 06/04/2018 PSYCHIATRIC PROGRESS NOTE This late entry, date of service 06/04/2018 covers elements not covered in my initial note. SUBJECTIVE: I met with the patient in the evening. Overall, per nursing report, the patient had a good day. He has had no suicidal ideation per nursing report on careful review and we will go ahead and stop the daytime on one-on-one status and reconsider stopping the bedtime one-on-one status if he does well another day. Slept 3-3/4 hours. REVIEW OF SYSTEMS: Ambulation impaired, in wheelchair. No CV, , eye, ENT or pulmonary system symptoms on review. MENTAL STATUS EXAM: Reasonably oriented. Speech is coherent, has some latency at times, somewhat pressured. Abstraction fair, computation impaired, language function intact, attention span short. Mood and affect, lability is much improved. LABORATORY DATA: Reviewed. IMPRESSION: Bipolar 1 disorder, unspecified, Lewy body dementia, anxiety disorder, unspecified; impulse control disorder, unspecified. PLAN: No change from initial note. [facility] We will plan transition later this week. SAY PRUETT MD DR: MARCEL/nano JOB#: [id number] / [id number]
[2018-06-05] MEDS: PRAMIPEXOLE 0.5 MG TABLET. PO SCH (21:17)
[2018-06-05] MEDS: traZODone 100 MG TABLET. PO SCH (21:19)
[2018-06-05] MEDS: risperiDONE 0.5 MG TABLET. PO SCH (21:20)
[2018-06-05] MEDS: QUEtiapine 100 MG TABLET. PO SCH (21:21)
[2018-06-05] MEDS: SERTRALINE 25 MG TABLET. PO SCH (21:22)
[2018-06-05] MEDS: MELATONIN 3 MG TABLET PO SCH (21:22)
[2018-06-05] MEDS: DIVALPROEX ER 500 MG TAB.ER.24H PO SCH (21:22)
[2018-06-05] MEDS: FLUTICASONE 50MCG/NASAL SPRAY 16GM BOTTLE. NS SCH (21:29)
[2018-06-06] MEDS: FERROUS SULFATE 325 MG TABLET. PO SCH (04:52)
[2018-06-06] MEDS: CARBIDOPA/LEVODOPA 25/100MG TABLET PO SCH ×9 (04:53→22:26)
[2018-06-06] MEDS: IPRATROPIUM BROMIDE 0.5 MG/2.5 ML NEBU. NEB SCH ×4 (05:22→20:25)
[2018-06-06 05:39] VITALS: BP 154/97
[2018-06-06] MEDS: metFORMIN XR 500 MG TAB.ER.24H PO SCH (08:04)
[2018-06-06] MEDS: MULTIVITAMIN with MINERAL TABLET. PO SCH (08:05)
[2018-06-06] MEDS: MAGNESIUM OXIDE 400 MG TABLET PO SCH ×2 (08:05→20:42)
[2018-06-06] MEDS: ASPIRIN ENTERIC COATED 81 MG TABLET.DR. PO SCH (08:05)
[2018-06-06] MEDS: MEMANTINE 10 MG TABLET. PO SCH ×2 (08:05→16:41)
[2018-06-06] MEDS: DOCUSATE SODIUM 100 MG CAPSULE PO SCH ×2 (08:05→20:42)
[2018-06-06] MEDS: LINACLOTIDE 145 MCG CAPSULE. PO SCH (08:05)
[2018-06-06] MEDS: ASCORBIC ACID 500 MG TABLET PO SCH (08:05)
[2018-06-06] MEDS: PRAVASTATIN 20 MG TABLET. PO SCH (08:05)
[2018-06-06] MEDS: LACTULOSE 20 GM/30 ML SOLUTION. PO SCH (08:06)
[2018-06-06] MEDS: LACTOBACILLUS RHAMNOSUS GG 1 CAPSULE. PO SCH ×2 (08:06→20:42)
[2018-06-06] MEDS: NYSTATIN TOPICAL POWDER 15GM BOTTLE. TP SCH ×2 (08:11→20:44)
[2018-06-06] MEDS: RIVASTIGMINE 13.3MG PATCH. TD SCH (08:11)
[2018-06-06 15:41] VITALS: BP 158/92
[2018-06-06] MEDS: traZODone 100 MG TABLET. PO SCH (20:42)
[2018-06-06] MEDS: CARBIDOPA/LEVODOPA CR 50/200MG TABLET.SA PO SCH (20:42)
[2018-06-06] MEDS: risperiDONE 0.5 MG TABLET. PO SCH (20:42)
[2018-06-06] MEDS: PRAMIPEXOLE 0.5 MG TABLET. PO SCH (20:43)
[2018-06-06] MEDS: QUEtiapine 100 MG TABLET. PO SCH (20:43)
[2018-06-06] MEDS: DIVALPROEX ER 500 MG TAB.ER.24H PO SCH (20:43)
[2018-06-06] MEDS: MELATONIN 3 MG TABLET PO SCH (20:43)
[2018-06-06] MEDS: SERTRALINE 25 MG TABLET. PO SCH (20:43)
[2018-06-06] MEDS: FLUTICASONE 50MCG/NASAL SPRAY 16GM BOTTLE. NS SCH (20:44)
--- NOTE | 2018-06-06 22:58 | PDOC ---
Exam Note: Сергей Note: Please also refer to the separate dictated note~for this date of service dictated separately.~Patient seen individually. Discussed the patient with Nursing staff reviewed the chart.~Reviewed interim history and current functioning. Reviewed vital signs,~Labs/ Radiology~and current medications noted below. Continue current treatment with the changes noted in the dictated addendum note Assessment: Vital Signs: Vital Signs Date Time Temp Pulse Resp B/P (MAP) Pulse Ox O2 Delivery O2 Flow Rate FiO2 06/06/18 19:53 97 Room Air 06/06/18 15:41 98.4 70 22 158/92 (114) I&O Intake and Output 06/06/18 07:01 Intake Total 1080 ml Balance 1080 ml Intake Oral 1080 ml # Bowel Movements 2 Current Medications: Meds: Current Medications Acetaminophen (Tylenol) 650 mg PRN Q6HRS PRN PO PAIN / TEMP Last administered on 06/02/18 04:49; Start 05/10/18 at 17:45 Albuterol Sulfate (Ventolin) 2.5 mg PRN Q4HRS PRN NEB COUGH; Start 05/10/18 at 17:45 Ascorbic Acid (Vitamin C) 500 mg DAILY PO Last administered on 06/06/18at 08:05 ; Start 05/11/18 at 09:00 Throat Lozenges (Cepacol Sore Throat Lozenge) 1 osito PRN Q2HR PRN MM COUGH Last administered on 05/22/18at 20:01; Start 05/10/18 at 17:45 Carbidopa/Levodopa (Sinemet 25/100) 0.5 tab Q2HR W/A PO Last administered on 06/06/18at 22:26; Start 05/10/18 at 18:00 Vitamin D (Vitamin D3) 50,000 unit WEEKLY PO Last administered on 05/31/18at 08 :03; Start 05/17/18 at 09:00 Diclofenac Sodium (Voltaren) 1 juan PRN TID PRN TP MUSCLE PAIN; Start 05/10/18 at 17:45 Ferrous Sulfate (Feosol) 650 mg DAILY06 PO Last administered on 06/06/18at 04: 52; Start 05/11/18 at 06:00 Guaifenesin (Mucinex Er) 600 mg BID PO Last administered on 05/21/18at 08:09; Start 05/10/18 at 21:00; Stop 05/21/18 at 15:53; Status DC Ibuprofen (Motrin) 600 mg PRN BID PRN PO INFLAMMATION PAIN Last administered on 05/13/18 16:19; Start 05/10/18 at 17:45 Ipratropium [place] (Atrovent) 0.5 mg RTQID NEB Last administered on at 20:25; Start 05/10/18 at 20:00 Linaclotide (Linzess) 145 mcg DAILY PO Last administered on 06/06/18at 08:05; Start 05/11/18 at 09:00 Al Hydroxide/Mg Hydroxide (Mylanta Plus Xs) 15 ml PRN AFTMEALHC PRN PO DYSPEPSIA; Start 05/10/18 at 17:45 Multi-Ingredient Ointment (Analgesic [place]) 1 juan QID PRN TP MUSCLE PAIN; Start 05/10/18 at 17:45 Nystatin (Nystop) 1 juan BID TP Last administered on 06/06/18at 20:44; Start at 21:00 Olanzapine (ZyPREXA ZYDIS) 5 mg PRN Q2HR PRN PO ANXIETY / AGITATION Last administered on 05/13/18at 23:10; Start 05/10/18 at 17:45 Amoxicillin/ Clavulanate Potassium (Augmentin 875/ 125mg) 1 tab BID PO Last administered on 05/21/18 08:07; Start 05/10/18 at 21:00; Stop 05/21/18 at 15: 52; Status DC Aspirin (Aspirin Enteric Coated) 81 mg DAILYWBKFT PO Last administered on 06/06at 08:05; Start 05/11/18 at 08:00 Benzonatate (Tessalon Perle) 100 mg [id number] PO Last administered on 05/17/18at 14:04; Start 05/10/18 at 21:00; Stop 05/17/18 at 14:52; Status DC Carbidopa/Levodopa (Sinemet Cr) 1 tab.sa QHS PO Last administered on at 20:42; Start 05/10/18 at 21:00 Diazepam (Valium) 2 mg PRN Q6HRS PRN PO ANXIETY / AGITATION Last administered on 05/11/18at 08:41; Start 05/10/18 at 18:00; Stop 05/11/18 at 18:16; Status DC Divalproex Sodium (Depakote) 1,500 mg QHS PO Last administered on 05/28/18at 20 :23; Start 05/10/18 at 21:00; Stop 05/29/18 at 15:31; Status DC Docusate Sodium (Colace) 100 mg BID PO Last administered on 06/06/18at 20:42; Start 05/10/18 at 21:00 Fluticasone Propionate (Flonase) 2 spray DAILY NS Last administered on at 08:07; Start 05/11/18 at 09:00; Stop 05/31/18 at 17:36; Status DC Hydrocortisone (Cortaid) 1 juan PRN BID PRN TP RASH; Start 05/10/18 at 19:15 Lactobacillus Rhamnosus (Culturelle) 1 cap BID PO Last administered on at 20:42; Start 05/10/18 at 21:00 Lactulose (Lactulose) 15 gm DAILYWBKFT PO Last administered on 06/06/18at 08:06 ; Start 05/11/18 at 08:00 Magnesium Hydroxide (Milk Of Magnesia) 2,400 mg PRN QHS PRN PO CONSTIPATION; Start 05/10/18 at 18:30 Magnesium Oxide (Magnesium Oxide) 400 mg BID PO Last administered on at 20:42; Start 05/10/18 at 21:00 Melatonin 3 mg QHS PO Last administered on 06/06/18at 20:43; Start 05/10/18 at 21:00 Memantine (Namenda) 10 mg BIDWMEALS PO Last administered on 06/06/18at 16:41; Start 05/10/18 at 18:30 Metformin HCl (Glucophage Xr) 1,000 mg DAILYWBKFT PO Last administered on 06/06at 08:04; Start 05/11/18 at 08:00 Miconazole Nitrate (Monistat-Derm) 1 juan PRN BID PRN TP RASH; Start 05/10/18 at 21:00 Multivitamins/ Calcium (Thera-M Plus) 1 tab DAILY PO Last administered on 06/06at 08:05; Start 05/11/18 at 09:00 Pramipexole Dihydrochloride (miraPEX) 0.5 mg QHS PO Last administered on at 20:43; Start 05/10/18 at 21:00 Pravastatin Sodium (Pravachol) 40 mg DAILY PO Last administered on 06/06/18at 08:05; Start 05/11/18 at 09:00 Quetiapine Fumarate (SEROquel) 200 mg QHS PO Last administered on 05/27/18at 19 :27; Start 05/10/18 at 21:00; Stop 05/28/18 at 16:22; Status DC Rivastigmine (Exelon) 1 patch DAILY TD Last administered on 05/15/18at 08:04; Start 05/11/18 at 09:00; Stop 05/15/18 at 12:34; Status DC Sertraline HCl (Zoloft) 75 mg DAILY PO Last administered on 05/30/18at 07:30; Start 05/11/18 at 09:00; Stop 05/30/18 at 19:05; Status DC Trazodone HCl (Desyrel) 25 mg DAILYWSUP PO Last administered on 05/21/18at 15:55 ; Start 05/10/18 at 18:30; Stop 05/21/18 at 16:34; Status DC Trazodone HCl (Desyrel) 100 mg PRN QHS PRN PO INSOMNIA Last administered on 05/19/18at 23:02; Start 05/10/18 at 18:00; Stop 05/21/18 at 16:34; Status DC Trazodone HCl (Desyrel) 150 mg QHS PO Last administered on 05/20/18at 19:47; Start 05/10/18 at 21:00; Stop 05/21/18 at 16:34; Status DC Acetaminophen (Tylenol) 650 mg PRN Q6HRS PRN PO PAIN / TEMP; Start 05/10/18 at 18:15; Status UNV Multi-Ingredient Ointment (Analgesic [place]) 1 juan PRN QID PRN TP MUSCLE PAIN; Start 05/10/18 at 18:15; Status UNV Al Hydroxide/Mg Hydroxide (Mylanta Plus Xs) 15 ml PRN AFTMEALHC PRN PO DYSPEPSIA; Start 05/10/18 at 18:15; Status UNV Magnesium Hydroxide (Milk Of Magnesia) 2,400 mg PRN QHS PRN PO CONSTIPATION; Start 05/10/18 at 18:15; Status UNV Alprazolam (Xanax) 0.5 mg PRN Q6HRS PRN PO ANXIETY / AGITATION Last administered on 05/17/18 21:09; Start 05/11/18 at 18:15 Rivastigmine ([place] 13.3mg) 1 patch DAILY TD Last administered on 06/06/18at 08:11; Start 05/16/18 at 09:00 Risperidone (RisperDAL) 0.5 mg HS PO Last administered on 06/06/18 20:42; Start 05/17/18 at 21:00 Trazodone HCl (Desyrel) 200 mg PRN QHS PRN PO INSOMNIA Last administered on 01:00; Start 05/21/18 at 21:00 Trazodone HCl (Desyrel) 200 mg QHS PO Last administered on 06/06/18at 20:42; Start 05/21/18 at 21:00 Quetiapine Fumarate (SEROquel) 150 mg QHS PO Last administered on 06/06/18 20 :43; Start 05/28/18 at 21:00 Divalproex Sodium (Depakote Er) 1,500 mg QHS PO Last administered on 20:43; Start 05/29/18 at 21:00 Sertraline HCl (Zoloft) 75 mg QHS PO Last administered on 06/06/18 20:43; Start 05/31/18 at 21:00 Fluticasone Propionate (Flonase) 2 spray QHS NS Last administered on 20:44; Start 05/31/18 at 21:00 Active Scripts Active Reported Neomycin Sulfate 500 Mg Tablet 1 Juan PO DAILY Augmentin 875-125 Tablet (Amoxicillin/Potassium Clav) 1 Each Tablet 1 Each PO BID 5 Days Albuterol Sulfate Neb Soln (Albuterol Sulfate) 2.5 Mg/3 Ml Vial.neb 2.5 Mg PRN Q4HRS PRN EXELON 9.5mg/24hr (Rivastigmine) 1 Each Patch.td24 1 Patch TD DAILY Trazodone Hcl 150 Mg Tablet 150 Mg PO HS Trazodone Hcl 100 Mg Tablet 100 Mg PO PRN QHS PRN Guaifenesin 600 Mg Tablet.er 600 Mg PO BID Zoloft (Sertraline Hcl) 25 Mg Tablet 75 Mg PO DAILY Seroquel (Quetiapine Fumarate) 200 Mg Tablet 200 Mg PO HS Ipratropium [place] 0.2 Mg/1 Ml Solution 1 Vial NEB QID Benzonatate 100 Mg Capsule 100 Mg PO TID Cepacol Sore Throat Lozenge (Benzocaine/Menthol) 1 Each Lozenge 1 Each MM PRN Q2HR PRN Mag-Al Plus Xs Suspension (Mag Hydrox/Al Hydrox/Simeth) 30 Ml Oral.susp 15 Ml PO PRN AFTMEALHC PRN Lactulose 10 Gm/15 Ml Solution 15 Gm PO DAILYWBKFT Zyprexa Zydis (Olanzapine) 5 Mg Tab.rapdis 5 Mg PO PRN Q2HR PRN Analgesic [place] (Methyl Salicylate/Menthol) 28 Gm Oint...g. 1 Juan TP QID PRN Namenda (Memantine Hcl) 10 Mg Tablet 1 Tab PO BIDWMEALS Melatonin 3 Mg Tablet 1 Tab PO QHS Culturelle (Lactobacillus Rhamnosus Gg) 1 Each Capsule 1 Each PO BID Glucophage Xr (Metformin Hcl) 500 Mg Tab.er.24h 2 Tab PO DAILYWBKFT Nystatin 15 Gm Powder 1 Juan TP BID Milk Of Magnesia (Magnesium Hydroxide) 2,400 Mg/10 Ml Oral.susp 2,400 Mg PO HS PRN Voltaren (Diclofenac Sodium) 100 Gm Gel..gram. 1 Juan TP PRN TID PRN FOR NECK PAIN Vitamin D3 (Cholecalciferol (Vitamin D3)) 50,000 Unit Capsule 50,000 Unit PO WEEKLY Tylenol (Acetaminophen) 325 Mg Tablet 2 Tab PO PRN Q6HRS PRN Pravastatin Sodium 40 Mg Tablet 40 Mg PO DAILY Carbidopa-Levo Er 50-200 Tab (Carbidopa/Levodopa) 1 Each Tablet.er 1 Each PO HS Sinemet 25-100 Mg Tablet (Carbidopa/Levodopa) 1 Each Tablet 0.5 Tab PO Q2HR W/A Diazepam 2 Mg Tablet 2 Mg PO PRN Q6HRS PRN Mirapex (Pramipexole Di-Hcl) 0.25 Mg Tablet 0.5 Mg PO HS Linzess (Linaclotide) 145 Mcg Capsule 145 Mcg PO DAILY Divalproex Sodium 500 Mg Tablet.dr 1,500 Mg PO HS Hydrocortisone 453.6 Gm Cream..g. 1 Juan TP PRN BID PRN Ferrous Sulfate 325 Mg Tablet 650 Mg PO DAILY06 Magnesium Oxide 400 Mg Tablet 400 Mg PO BID Miconazole Nitrate 45 Gm Cream.appl 1 Juan TP PRN BID PRN Aspirin 81 Mg Tab.chew 81 Mg PO DAILY Ibuprofen 400 Mg Tablet 600 Mg PO PRN BID PRN Docusate Sodium 100 Mg Capsule 100 Mg PO BID Fluticasone Propionate Nasal [place] (Fluticasone Propionate) 16 Gm [place].susp 2 [place] NS DAILY Multivitamins (Multivitamin) 1 Each Tablet 1 Tab PO DAILY Trazodone Hcl 50 Mg Tablet 25 Mg PO DAILYWSUP Ascorbic Acid 500 Mg Tablet 500 Mg PO DAILY I have reviewed the current psychotropics carefully including drug interactions. Risk benefit ratio favors no change other than as noted in my dictated progress note. Diagnosis: Problems: (1) Healthcare-associated pneumonia (2) Acute respiratory failure with hypoxia (3) Acute and chronic respiratory failure with hypoxia (4) Anxiety disorder (5) Lewy body dementia with behavioral disturbance (6) Impulse control disorder (7) Personality disorder in adult SAY PRUETT MD Jun 06, 2018 22:58
[2018-06-07] MEDS: IPRATROPIUM BROMIDE 0.5 MG/2.5 ML NEBU. NEB SCH ×4 (05:07→20:55)
[2018-06-07] MEDS: FERROUS SULFATE 325 MG TABLET. PO SCH (05:48)
[2018-06-07] MEDS: CARBIDOPA/LEVODOPA 25/100MG TABLET PO SCH ×9 (05:49→23:02)
[2018-06-07 06:31] VITALS: BP 133/90
[2018-06-07] MEDS: LINACLOTIDE 145 MCG CAPSULE. PO SCH (08:25)
[2018-06-07] MEDS: ASPIRIN ENTERIC COATED 81 MG TABLET.DR. PO SCH (08:26)
[2018-06-07] MEDS: metFORMIN XR 500 MG TAB.ER.24H PO SCH (08:26)
[2018-06-07] MEDS: PRAVASTATIN 20 MG TABLET. PO SCH (08:26)
[2018-06-07] MEDS: DOCUSATE SODIUM 100 MG CAPSULE PO SCH ×2 (08:26→20:26)
[2018-06-07] MEDS: MEMANTINE 10 MG TABLET. PO SCH ×2 (08:26→16:29)
[2018-06-07] MEDS: MULTIVITAMIN with MINERAL TABLET. PO SCH (08:26)
[2018-06-07] MEDS: MAGNESIUM OXIDE 400 MG TABLET PO SCH ×2 (08:26→20:23)
[2018-06-07] MEDS: LACTOBACILLUS RHAMNOSUS GG 1 CAPSULE. PO SCH ×2 (08:26→20:23)
[2018-06-07] MEDS: LACTULOSE 20 GM/30 ML SOLUTION. PO SCH (08:27)
[2018-06-07] MEDS: ASCORBIC ACID 500 MG TABLET PO SCH (08:27)
[2018-06-07] MEDS: CHOLECALCIFEROL (VITAMIN D3) 50,000 UNIT CAPSULE PO SCH (08:30)
[2018-06-07] MEDS: NYSTATIN TOPICAL POWDER 15GM BOTTLE. TP SCH ×2 (08:32→20:26)
[2018-06-07] MEDS: RIVASTIGMINE 13.3MG PATCH. TD SCH (11:00)
[2018-06-07 15:25] VITALS: BP 127/79
[2018-06-07] MEDS: traZODone 100 MG TABLET. PO SCH (20:23)
[2018-06-07] MEDS: QUEtiapine 100 MG TABLET. PO SCH (20:23)
[2018-06-07] MEDS: PRAMIPEXOLE 0.5 MG TABLET. PO SCH (20:26)
[2018-06-07] MEDS: DIVALPROEX ER 500 MG TAB.ER.24H PO SCH (20:26)
[2018-06-07] MEDS: risperiDONE 0.5 MG TABLET. PO SCH ×3 (20:26→23:18)
[2018-06-07] MEDS: CARBIDOPA/LEVODOPA CR 50/200MG TABLET.SA PO SCH (20:26)
[2018-06-07] MEDS: FLUTICASONE 50MCG/NASAL SPRAY 16GM BOTTLE. NS SCH (20:26)
[2018-06-07] MEDS: SERTRALINE 25 MG TABLET. PO SCH (20:26)
[2018-06-07] MEDS: MELATONIN 3 MG TABLET PO SCH (20:26)
--- NOTE | 2018-06-07 20:52 | PN ---
DATE: 06/05/2018 This late entry 06/05/2018 covers elements not covered in my initial note. PSYCHIATRIC PROGRESS NOTE This late entry 06/05/2018 covers elements not covered in my initial note. SUBJECTIVE: I met with the patient in the evening. The patient slept 5-1/4 hours previous night. He has been moved from the [place] chair to the wheelchair, angry, tearful, whiny at times per nursing staff, but wants staff to do more for him than he can do for himself. He is somewhat obsessed about the Sinemet dosage. relief worker, Debby, had called me about the 's questions about this stage of dementia and the felt he was perhaps at a stage [address] Flanagan has done neuropsychological testing on him and we will defer this to him, but he is reasonably oriented, though he does have some short-term memory deficits. [facility] before he transfers there. REVIEW OF SYSTEMS: Ambulation impaired. No CV, , pulmonary, eye, ENT system symptoms on review. MENTAL STATUS EXAM: Oriented to himself and situation. Speech is coherent, a little pressured at times. Abstraction fair, computation impaired, language function intact, attention span short. Mood and affect somewhat anxious, labile at times, but much improved. No suicidal or homicidal ideation. LABORATORY DATA: Reviewed. IMPRESSION: Bipolar 1 disorder, unspecified; cognitive disorder, unspecified versus Lewy body dementia with delusion, depression. PLAN: No change from initial note. MAN Rosa PRUETT MD DR: MARCEL/nano JOB#: [id number] / [id number]
--- NOTE | 2018-06-07 20:56 | PN ---
DATE: 06/06/2018 PSYCHIATRIC PROGRESS NOTE This late entry 06/06/2018 covers elements not covered in my initial note. SUBJECTIVE: I met with the patient in the evening. The patient also staffed at a treatment team meeting with the entire team and we discussed his history, discharge plans to [facility]. REVIEW OF SYSTEMS: Ambulation impaired, in wheelchair. No CV, , pulmonary, eye, ENT system symptoms on review. MENTAL STATUS EXAM: Oriented to himself and situation. Speech has some latency, coherent. Abstraction fair, computation impaired, language function intact, attention span short. Mood and affect remain somewhat anxious, labile, but improved. LABORATORY DATA: Reviewed. IMPRESSION: Unchanged from initial note. PLAN: No change from initial note. SAY PRUETT MD DR: MARCEL/nano JOB#: [id number] / [id number]
--- NOTE | 2018-06-07 22:45 | PDOC ---
Exam Note: Сергей Note: Please also refer to the separate dictated note~for this date of service dictated separately.~Patient seen individually. Discussed the patient with Nursing staff reviewed the chart.~Reviewed interim history and current functioning. Reviewed vital signs,~Labs/ Radiology~and current medications noted below. Continue current treatment with the changes noted in the dictated addendum note Assessment: Vital Signs: Vital Signs Date Time Temp Pulse Resp B/P (MAP) Pulse Ox O2 Delivery O2 Flow Rate FiO2 06/07/18 20:59 95 Room Air 06/07/18 15:25 98.2 69 18 127/79 (95) I&O Intake and Output 06/07/18 07:01 Intake Total 1680 ml Balance 1680 ml Intake Oral 1680 ml # Bowel Movements 1 Current Medications: Meds: Current Medications Acetaminophen (Tylenol) 650 mg PRN Q6HRS PRN PO PAIN / TEMP Last administered on 06/02/18at 04:49; Start 05/10/18 at 17:45 Albuterol Sulfate (Ventolin) 2.5 mg PRN Q4HRS PRN NEB COUGH; Start 05/10/18 at 17:45 Ascorbic Acid (Vitamin C) 500 mg DAILY PO Last administered on 06/07/18at 08:27 ; Start 05/11/18 at 09:00 Throat Lozenges (Cepacol Sore Throat Lozenge) 1 osito PRN Q2HR PRN MM COUGH Last administered on 05/22/18at 20:01; Start 05/10/18 at 17:45 Carbidopa/Levodopa (Sinemet 25/100) 0.5 tab Q2HR W/A PO Last administered on 06/07/18at 19:27; Start 05/10/18 at 18:00 Vitamin D (Vitamin D3) 50,000 unit WEEKLY PO Last administered on 06/07/18at 08 :30; Start 05/17/18 at 09:00 Diclofenac Sodium (Voltaren) 1 juan PRN TID PRN TP MUSCLE PAIN; Start 05/10/18 at 17:45 Ferrous Sulfate (Feosol) 650 mg DAILY06 PO Last administered on 06/07/18at 05: 48; Start 05/11/18 at 06:00 Guaifenesin (Mucinex Er) 600 mg BID PO Last administered on 05/21/18at 08:09; Start 05/10/18 at 21:00; Stop 05/21/18 at 15:53; Status DC Ibuprofen (Motrin) 600 mg PRN BID PRN PO INFLAMMATION PAIN Last administered on 05/13/18 16:19; Start 05/10/18 at 17:45 Ipratropium [place] (Atrovent) 0.5 mg RTQID NEB Last administered on at 20:55; Start 05/10/18 at 20:00 Linaclotide (Linzess) 145 mcg DAILY PO Last administered on 06/07/18 08:25; Start 05/11/18 at 09:00 Al Hydroxide/Mg Hydroxide (Mylanta Plus Xs) 15 ml PRN AFTMEALHC PRN PO DYSPEPSIA; Start 05/10/18 at 17:45 Multi-Ingredient Ointment (Analgesic Yeaddiss) 1 juan QID PRN TP MUSCLE PAIN; Start 05/10/18 at 17:45 Nystatin (Nystop) 1 juan BID TP Last administered on 06/07/18 20:26; Start at 21:00 Olanzapine (ZyPREXA ZYDIS) 5 mg PRN Q2HR PRN PO ANXIETY / AGITATION Last administered on 05/13/18 23:10; Start 05/10/18 at 17:45 Amoxicillin/ Clavulanate Potassium (Augmentin 875/ 125mg) 1 tab BID PO Last administered on 05/21/18 08:07; Start 05/10/18 at 21:00; Stop 05/21/18 at 15: 52; Status DC Aspirin (Aspirin Enteric Coated) 81 mg DAILYWBKFT PO Last administered on 06/07at 08:26; Start 05/11/18 at 08:00 Benzonatate (Tessalon Perle) 100 mg [id number] PO Last administered on 05/17/18at 14:04; Start 05/10/18 at 21:00; Stop 05/17/18 at 14:52; Status DC Carbidopa/Levodopa (Sinemet Cr) 1 tab.sa QHS PO Last administered on 20:26; Start 05/10/18 at 21:00 Diazepam (Valium) 2 mg PRN Q6HRS PRN PO ANXIETY / AGITATION Last administered on 05/11/18at 08:41; Start 05/10/18 at 18:00; Stop 05/11/18 at 18:16; Status DC Divalproex Sodium (Depakote) 1,500 mg QHS PO Last administered on 05/28/18at 20 :23; Start 05/10/18 at 21:00; Stop 05/29/18 at 15:31; Status DC Docusate Sodium (Colace) 100 mg BID PO Last administered on 06/07/18at 20:26; Start 05/10/18 at 21:00 Fluticasone Propionate (Flonase) 2 spray DAILY NS Last administered on at 08:07; Start 05/11/18 at 09:00; Stop 05/31/18 at 17:36; Status DC Hydrocortisone (Cortaid) 1 juan PRN BID PRN TP RASH; Start 05/10/18 at 19:15 Lactobacillus Rhamnosus (Culturelle) 1 cap BID PO Last administered on at 20:23; Start 05/10/18 at 21:00 Lactulose (Lactulose) 15 gm DAILYWBKFT PO Last administered on 06/07/18at 08:27 ; Start 05/11/18 at 08:00 Magnesium Hydroxide (Milk Of Magnesia) 2,400 mg PRN QHS PRN PO CONSTIPATION; Start 05/10/18 at 18:30 Magnesium Oxide (Magnesium Oxide) 400 mg BID PO Last administered on at 20:23; Start 05/10/18 at 21:00 Melatonin 3 mg QHS PO Last administered on 06/07/18at 20:26; Start 05/10/18 at 21:00 Memantine (Namenda) 10 mg BIDWMEALS PO Last administered on 06/07/18at 16:29; Start 05/10/18 at 18:30 Metformin HCl (Glucophage Xr) 1,000 mg DAILYWBKFT PO Last administered on 06/07at 08:26; Start 05/11/18 at 08:00 Miconazole Nitrate (Monistat-Derm) 1 juan PRN BID PRN TP RASH; Start 05/10/18 at 21:00 Multivitamins/ Calcium (Thera-M Plus) 1 tab DAILY PO Last administered on 06/07at 08:26; Start 05/11/18 at 09:00 Pramipexole Dihydrochloride (miraPEX) 0.5 mg QHS PO Last administered on at 20:26; Start 05/10/18 at 21:00 Pravastatin Sodium (Pravachol) 40 mg DAILY PO Last administered on 06/07/18at 08:26; Start 05/11/18 at 09:00 Quetiapine Fumarate (SEROquel) 200 mg QHS PO Last administered on 05/27/18at 19 :27; Start 05/10/18 at 21:00; Stop 05/28/18 at 16:22; Status DC Rivastigmine (Exelon) 1 patch DAILY TD Last administered on 05/15/18at 08:04; Start 05/11/18 at 09:00; Stop 05/15/18 at 12:34; Status DC Sertraline HCl (Zoloft) 75 mg DAILY PO Last administered on 05/30/18at 07:30; Start 05/11/18 at 09:00; Stop 05/30/18 at 19:05; Status DC Trazodone HCl (Desyrel) 25 mg DAILYWSUP PO Last administered on 05/21/18at 15:55 ; Start 05/10/18 at 18:30; Stop 05/21/18 at 16:34; Status DC Trazodone HCl (Desyrel) 100 mg PRN QHS PRN PO INSOMNIA Last administered on 05/19/18at 23:02; Start 05/10/18 at 18:00; Stop 05/21/18 at 16:34; Status DC Trazodone HCl (Desyrel) 150 mg QHS PO Last administered on 05/20/18at 19:47; Start 05/10/18 at 21:00; Stop 05/21/18 at 16:34; Status DC Acetaminophen (Tylenol) 650 mg PRN Q6HRS PRN PO PAIN / TEMP; Start 05/10/18 at 18:15; Status UNV Multi-Ingredient Ointment (Analgesic Yeaddiss) 1 juan PRN QID PRN TP MUSCLE PAIN; Start 05/10/18 at 18:15; Status UNV Al Hydroxide/Mg Hydroxide (Mylanta Plus Xs) 15 ml PRN AFTMEALHC PRN PO DYSPEPSIA; Start 05/10/18 at 18:15; Status UNV Magnesium Hydroxide (Milk Of Magnesia) 2,400 mg PRN QHS PRN PO CONSTIPATION; Start 05/10/18 at 18:15; Status UNV Alprazolam (Xanax) 0.5 mg PRN Q6HRS PRN PO ANXIETY / AGITATION Last administered on 05/17/18 21:09; Start 05/11/18 at 18:15 Rivastigmine (Exelon 13.3mg) 1 patch DAILY TD Last administered on 06/07/18at 11:00; Start 05/16/18 at 09:00 Risperidone (RisperDAL) 0.5 mg HS PO Last administered on 06/07/18 20:26; Start 05/17/18 at 21:00 Trazodone HCl (Desyrel) 200 mg PRN QHS PRN PO INSOMNIA Last administered on 01:00; Start 05/21/18 at 21:00 Trazodone HCl (Desyrel) 200 mg QHS PO Last administered on 06/07/18 20:23; Start 05/21/18 at 21:00 Quetiapine Fumarate (SEROquel) 150 mg QHS PO Last administered on 06/07/18 20 :23; Start 05/28/18 at 21:00 Divalproex Sodium (Depakote Er) 1,500 mg QHS PO Last administered on 20:26; Start 05/29/18 at 21:00 Sertraline HCl (Zoloft) 75 mg QHS PO Last administered on 06/07/18 20:26; Start 05/31/18 at 21:00 Fluticasone Propionate (Flonase) 2 spray QHS NS Last administered on 20:26; Start 05/31/18 at 21:00 Active Scripts Active Reported Neomycin Sulfate 500 Mg Tablet 1 Juan PO DAILY Augmentin 875-125 Tablet (Amoxicillin/Potassium Clav) 1 Each Tablet 1 Each PO BID 5 Days Albuterol Sulfate Neb Soln (Albuterol Sulfate) 2.5 Mg/3 Ml Vial.neb 2.5 Mg PRN Q4HRS PRN EXELON 9.5mg/24hr (Rivastigmine) 1 Each Patch.td24 1 Patch TD DAILY Trazodone Hcl 150 Mg Tablet 150 Mg PO HS Trazodone Hcl 100 Mg Tablet 100 Mg PO PRN QHS PRN Guaifenesin 600 Mg Tablet.er 600 Mg PO BID Zoloft (Sertraline Hcl) 25 Mg Tablet 75 Mg PO DAILY Seroquel (Quetiapine Fumarate) 200 Mg Tablet 200 Mg PO HS Ipratropium [place] 0.2 Mg/1 Ml Solution 1 Vial NEB QID Benzonatate 100 Mg Capsule 100 Mg PO TID Cepacol Sore Throat Lozenge (Benzocaine/Menthol) 1 Each Lozenge 1 Each MM PRN Q2HR PRN Mag-Al Plus Xs Suspension (Mag Hydrox/Al Hydrox/Simeth) 30 Ml Oral.susp 15 Ml PO PRN AFTMEALHC PRN Lactulose 10 Gm/15 Ml Solution 15 Gm PO DAILYWBKFT Zyprexa Zydis (Olanzapine) 5 Mg Tab.rapdis 5 Mg PO PRN Q2HR PRN Analgesic Yeaddiss (Methyl Salicylate/Menthol) 28 Gm Oint...g. 1 Juan TP QID PRN Namenda (Memantine Hcl) 10 Mg Tablet 1 Tab PO BIDWMEALS Melatonin 3 Mg Tablet 1 Tab PO QHS Culturelle (Lactobacillus Rhamnosus Gg) 1 Each Capsule 1 Each PO BID Glucophage Xr (Metformin Hcl) 500 Mg Tab.er.24h 2 Tab PO DAILYWBKFT Nystatin 15 Gm Powder 1 Juan TP BID Milk Of Magnesia (Magnesium Hydroxide) 2,400 Mg/10 Ml Oral.susp 2,400 Mg PO HS PRN Voltaren (Diclofenac Sodium) 100 Gm Gel..gram. 1 Juan TP PRN TID PRN FOR NECK PAIN Vitamin D3 (Cholecalciferol (Vitamin D3)) 50,000 Unit Capsule 50,000 Unit PO WEEKLY Tylenol (Acetaminophen) 325 Mg Tablet 2 Tab PO PRN Q6HRS PRN Pravastatin Sodium 40 Mg Tablet 40 Mg PO DAILY Carbidopa-Levo Er 50-200 Tab (Carbidopa/Levodopa) 1 Each Tablet.er 1 Each PO HS Sinemet 25-100 Mg Tablet (Carbidopa/Levodopa) 1 Each Tablet 0.5 Tab PO Q2HR W/A Diazepam 2 Mg Tablet 2 Mg PO PRN Q6HRS PRN Mirapex (Pramipexole Di-Hcl) 0.25 Mg Tablet 0.5 Mg PO HS Linzess (Linaclotide) 145 Mcg Capsule 145 Mcg PO DAILY Divalproex Sodium 500 Mg Tablet.dr 1,500 Mg PO HS Hydrocortisone 453.6 Gm Cream..g. 1 Juan TP PRN BID PRN Ferrous Sulfate 325 Mg Tablet 650 Mg PO DAILY06 Magnesium Oxide 400 Mg Tablet 400 Mg PO BID Miconazole Nitrate 45 Gm Cream.appl 1 Juan TP PRN BID PRN Aspirin 81 Mg Tab.chew 81 Mg PO DAILY Ibuprofen 400 Mg Tablet 600 Mg PO PRN BID PRN Docusate Sodium 100 Mg Capsule 100 Mg PO BID Fluticasone Propionate Nasal [place] (Fluticasone Propionate) 16 Gm [place].susp 2 [place] NS DAILY Multivitamins (Multivitamin) 1 Each Tablet 1 Tab PO DAILY Trazodone Hcl 50 Mg Tablet 25 Mg PO DAILYWSUP Ascorbic Acid 500 Mg Tablet 500 Mg PO DAILY I have reviewed the current psychotropics carefully including drug interactions. Risk benefit ratio favors no change other than as noted in my dictated progress note. Diagnosis: Problems: (1) Healthcare-associated pneumonia (2) Acute respiratory failure with hypoxia (3) Acute and chronic respiratory failure with hypoxia (4) Anxiety disorder (5) Lewy body dementia with behavioral disturbance (6) Impulse control disorder (7) Personality disorder in adult SAY PRUETT MD Jun 07, 2018 22:45
[2018-06-08] MEDS: ALPRAZolam 0.5 MG TABLET PO PRN (02:36)
[2018-06-08] MEDS: FERROUS SULFATE 325 MG TABLET. PO SCH (04:55)
[2018-06-08] MEDS: CARBIDOPA/LEVODOPA 25/100MG TABLET PO SCH ×9 (04:55→22:10)
[2018-06-08] MEDS: IPRATROPIUM BROMIDE 0.5 MG/2.5 ML NEBU. NEB SCH ×4 (05:22→20:20)
[2018-06-08 06:45] VITALS: BP 146/88
[2018-06-08] MEDS: LACTULOSE 20 GM/30 ML SOLUTION. PO SCH (08:24)
[2018-06-08] MEDS: RIVASTIGMINE 13.3MG PATCH. TD SCH (08:24)
[2018-06-08] MEDS: MEMANTINE 10 MG TABLET. PO SCH ×2 (08:25→17:21)
[2018-06-08] MEDS: ASPIRIN ENTERIC COATED 81 MG TABLET.DR. PO SCH (08:25)
[2018-06-08] MEDS: MAGNESIUM OXIDE 400 MG TABLET PO SCH ×2 (08:25→20:52)
[2018-06-08] MEDS: metFORMIN XR 500 MG TAB.ER.24H PO SCH (08:25)
[2018-06-08] MEDS: LINACLOTIDE 145 MCG CAPSULE. PO SCH (08:25)
[2018-06-08] MEDS: ASCORBIC ACID 500 MG TABLET PO SCH (08:26)
[2018-06-08] MEDS: DOCUSATE SODIUM 100 MG CAPSULE PO SCH ×2 (08:26→20:52)
[2018-06-08] MEDS: MULTIVITAMIN with MINERAL TABLET. PO SCH (08:26)
[2018-06-08] MEDS: LACTOBACILLUS RHAMNOSUS GG 1 CAPSULE. PO SCH ×2 (08:26→20:52)
[2018-06-08] MEDS: NYSTATIN TOPICAL POWDER 15GM BOTTLE. TP SCH ×2 (08:26→20:52)
[2018-06-08] MEDS: PRAVASTATIN 20 MG TABLET. PO SCH (08:28)
[2018-06-08 16:10] VITALS: BP 128/89
[2018-06-08] MEDS: CARBIDOPA/LEVODOPA CR 50/200MG TABLET.SA PO SCH (20:50)
[2018-06-08] MEDS: PRAMIPEXOLE 0.5 MG TABLET. PO SCH (20:51)
[2018-06-08] MEDS: QUEtiapine 100 MG TABLET. PO SCH (20:51)
[2018-06-08] MEDS: MELATONIN 3 MG TABLET PO SCH (20:52)
[2018-06-08] MEDS: DIVALPROEX ER 500 MG TAB.ER.24H PO SCH (20:52)
[2018-06-08] MEDS: FLUTICASONE 50MCG/NASAL SPRAY 16GM BOTTLE. NS SCH (20:52)
[2018-06-08] MEDS: traZODone 100 MG TABLET. PO SCH (20:52)
[2018-06-08] MEDS: SERTRALINE 25 MG TABLET. PO SCH (20:52)
[2018-06-08] MEDS ORDERED: risperiDONE ORAL 1 MG/ML 30ml BOTTLE. SL SCH (21:00)
--- NOTE | 2018-06-08 22:06 | PDOC ---
Exam Note: Сергйе Note: Please also refer to the separate dictated note~for this date of service dictated separately.~Patient seen individually. Discussed the patient with Nursing staff reviewed the chart.~Reviewed interim history and current functioning. Reviewed vital signs,~Labs/ Radiology~and current medications noted below. Continue current treatment with the changes noted in the dictated addendum note Assessment: Vital Signs: Vital Signs Date Time Temp Pulse Resp B/P (MAP) Pulse Ox O2 Delivery O2 Flow Rate FiO2 06/08/18 20:20 96 Room Air 06/08/18 16:10 97.6 62 22 128/89 (102) I&O Intake and Output 06/08/18 07:01 Intake Total 1080 ml Balance 1080 ml Intake Oral 1080 ml Current Medications: Meds: Current Medications Acetaminophen (Tylenol) 650 mg PRN Q6HRS PRN PO PAIN / TEMP Last administered on 06/02/18 04:49; Start 05/10/18 at 17:45 Albuterol Sulfate (Ventolin) 2.5 mg PRN Q4HRS PRN NEB COUGH; Start 05/10/18 at 17:45 Ascorbic Acid (Vitamin C) 500 mg DAILY PO Last administered on 06/08/18at 08:26 ; Start 05/11/18 at 09:00 Throat Lozenges (Cepacol Sore Throat Lozenge) 1 osito PRN Q2HR PRN MM COUGH Last administered on 05/22/18at 20:01; Start 05/10/18 at 17:45 Carbidopa/Levodopa (Sinemet 25/100) 0.5 tab Q2HR W/A PO Last administered on 06/08/18at 19:21; Start 05/10/18 at 18:00 Vitamin D (Vitamin D3) 50,000 unit WEEKLY PO Last administered on 06/07/18at 08 :30; Start 05/17/18 at 09:00 Diclofenac Sodium (Voltaren) 1 juan PRN TID PRN TP MUSCLE PAIN; Start 05/10/18 at 17:45 Ferrous Sulfate (Feosol) 650 mg DAILY06 PO Last administered on 06/08/18at 04: 55; Start 05/11/18 at 06:00 Guaifenesin (Mucinex Er) 600 mg BID PO Last administered on 05/21/18at 08:09; Start 05/10/18 at 21:00; Stop 05/21/18 at 15:53; Status DC Ibuprofen (Motrin) 600 mg PRN BID PRN PO INFLAMMATION PAIN Last administered on 05/13/18 16:19; Start 05/10/18 at 17:45 Ipratropium [place] (Atrovent) 0.5 mg RTQID NEB Last administered on 20:20; Start 05/10/18 at 20:00 Linaclotide (Linzess) 145 mcg DAILY PO Last administered on 06/08/18 08:25; Start 05/11/18 at 09:00 Al Hydroxide/Mg Hydroxide (Mylanta Plus Xs) 15 ml PRN AFTMEALHC PRN PO DYSPEPSIA; Start 05/10/18 at 17:45 Multi-Ingredient Ointment (Analgesic [place]) 1 juan QID PRN TP MUSCLE PAIN; Start 05/10/18 at 17:45 Nystatin (Nystop) 1 juan BID TP Last administered on 06/08/18 20:52; Start at 21:00 Olanzapine (ZyPREXA ZYDIS) 5 mg PRN Q2HR PRN PO ANXIETY / AGITATION Last administered on 05/13/18 23:10; Start 05/10/18 at 17:45 Amoxicillin/ Clavulanate Potassium (Augmentin 875/ 125mg) 1 tab BID PO Last administered on 05/21/18 08:07; Start 05/10/18 at 21:00; Stop 05/21/18 at 15: 52; Status DC Aspirin (Aspirin Enteric Coated) 81 mg DAILYWBKFT PO Last administered on 06/08at 08:25; Start 05/11/18 at 08:00 Benzonatate (Tessalon Perle) 100 mg [id number] PO Last administered on 05/17/18 14:04; Start 05/10/18 at 21:00; Stop 05/17/18 at 14:52; Status DC Carbidopa/Levodopa (Sinemet Cr) 1 tab.sa QHS PO Last administered on at 20:50; Start 05/10/18 at 21:00 Diazepam (Valium) 2 mg PRN Q6HRS PRN PO ANXIETY / AGITATION Last administered on 05/11/18at 08:41; Start 05/10/18 at 18:00; Stop 05/11/18 at 18:16; Status DC Divalproex Sodium (Depakote) 1,500 mg QHS PO Last administered on 05/28/18at 20 :23; Start 05/10/18 at 21:00; Stop 05/29/18 at 15:31; Status DC Docusate Sodium (Colace) 100 mg BID PO Last administered on 06/08/18at 20:52; Start 05/10/18 at 21:00 Fluticasone Propionate (Flonase) 2 spray DAILY NS Last administered on at 08:07; Start 05/11/18 at 09:00; Stop 05/31/18 at 17:36; Status DC Hydrocortisone (Cortaid) 1 juan PRN BID PRN TP RASH; Start 05/10/18 at 19:15 Lactobacillus Rhamnosus (Culturelle) 1 cap BID PO Last administered on at 20:52; Start 05/10/18 at 21:00 Lactulose (Lactulose) 15 gm DAILYWBKFT PO Last administered on 06/08/18at 08:24 ; Start 05/11/18 at 08:00 Magnesium Hydroxide (Milk Of Magnesia) 2,400 mg PRN QHS PRN PO CONSTIPATION; Start 05/10/18 at 18:30 Magnesium Oxide (Magnesium Oxide) 400 mg BID PO Last administered on at 20:52; Start 05/10/18 at 21:00 Melatonin 3 mg QHS PO Last administered on 06/08/18at 20:52; Start 05/10/18 at 21:00 Memantine (Namenda) 10 mg BIDWMEALS PO Last administered on 06/08/18at 17:21; Start 05/10/18 at 18:30 Metformin HCl (Glucophage Xr) 1,000 mg DAILYWBKFT PO Last administered on 06/08at 08:25; Start 05/11/18 at 08:00 Miconazole Nitrate (Monistat-Derm) 1 juan PRN BID PRN TP RASH; Start 05/10/18 at 21:00 Multivitamins/ Calcium (Thera-M Plus) 1 tab DAILY PO Last administered on 06/08at 08:26; Start 05/11/18 at 09:00 Pramipexole Dihydrochloride (miraPEX) 0.5 mg QHS PO Last administered on at 20:51; Start 05/10/18 at 21:00 Pravastatin Sodium (Pravachol) 40 mg DAILY PO Last administered on 06/08/18at 08:28; Start 05/11/18 at 09:00 Quetiapine Fumarate (SEROquel) 200 mg QHS PO Last administered on 05/27/18at 19 :27; Start 05/10/18 at 21:00; Stop 05/28/18 at 16:22; Status DC Rivastigmine (Exelon) 1 patch DAILY TD Last administered on 05/15/18at 08:04; Start 05/11/18 at 09:00; Stop 05/15/18 at 12:34; Status DC Sertraline HCl (Zoloft) 75 mg DAILY PO Last administered on 05/30/18at 07:30; Start 05/11/18 at 09:00; Stop 05/30/18 at 19:05; Status DC Trazodone HCl (Desyrel) 25 mg DAILYWSUP PO Last administered on 05/21/18at 15:55 ; Start 05/10/18 at 18:30; Stop 05/21/18 at 16:34; Status DC Trazodone HCl (Desyrel) 100 mg PRN QHS PRN PO INSOMNIA Last administered on 05/19/18at 23:02; Start 05/10/18 at 18:00; Stop 05/21/18 at 16:34; Status DC Trazodone HCl (Desyrel) 150 mg QHS PO Last administered on 05/20/18at 19:47; Start 05/10/18 at 21:00; Stop 05/21/18 at 16:34; Status DC Acetaminophen (Tylenol) 650 mg PRN Q6HRS PRN PO PAIN / TEMP; Start 05/10/18 at 18:15; Status UNV Multi-Ingredient Ointment (Analgesic [place]) 1 juan PRN QID PRN TP MUSCLE PAIN; Start 05/10/18 at 18:15; Status UNV Al Hydroxide/Mg Hydroxide (Mylanta Plus Xs) 15 ml PRN AFTMEALHC PRN PO DYSPEPSIA; Start 05/10/18 at 18:15; Status UNV Magnesium Hydroxide (Milk Of Magnesia) 2,400 mg PRN QHS PRN PO CONSTIPATION; Start 05/10/18 at 18:15; Status UNV Alprazolam (Xanax) 0.5 mg PRN Q6HRS PRN PO ANXIETY / AGITATION Last administered on 06/08/18 02:36; Start 05/11/18 at 18:15 Rivastigmine (Exelon 13.3mg) 1 patch DAILY TD Last administered on 06/08/18at 08:24; Start 05/16/18 at 09:00 Risperidone (RisperDAL) 0.5 mg HS PO Last administered on 06/06/18 20:42; Start 05/17/18 at 21:00; Stop 06/08/18 at 03:29; Status DC Trazodone HCl (Desyrel) 200 mg PRN QHS PRN PO INSOMNIA Last administered on 01:00; Start 05/21/18 at 21:00 Trazodone HCl (Desyrel) 200 mg QHS PO Last administered on 06/08/18 20:52; Start 05/21/18 at 21:00 Quetiapine Fumarate (SEROquel) 150 mg QHS PO Last administered on 06/08/18 20 :51; Start 05/28/18 at 21:00 Divalproex Sodium (Depakote Er) 1,500 mg QHS PO Last administered on 20:52; Start 05/29/18 at 21:00 Sertraline HCl (Zoloft) 75 mg QHS PO Last administered on 06/08/18 20:52; Start 05/31/18 at 21:00 Fluticasone Propionate (Flonase) 2 spray QHS NS Last administered on 20:52; Start 05/31/18 at 21:00 Risperidone (RisperDAL) 0.5 mg HS SL Last administered on 06/08/18 19:22; Start 06/08/18 at 21:00; Stop 06/08/18 at 21:00; Status DC Active Scripts Active Reported Neomycin Sulfate 500 Mg Tablet 1 Juan PO DAILY Augmentin 875-125 Tablet (Amoxicillin/Potassium Clav) 1 Each Tablet 1 Each PO BID 5 Days Albuterol Sulfate Neb Soln (Albuterol Sulfate) 2.5 Mg/3 Ml Vial.neb 2.5 Mg PRN Q4HRS PRN EXELON 9.5mg/24hr (Rivastigmine) 1 Each Patch.td24 1 Patch TD DAILY Trazodone Hcl 150 Mg Tablet 150 Mg PO HS Trazodone Hcl 100 Mg Tablet 100 Mg PO PRN QHS PRN Guaifenesin 600 Mg Tablet.er 600 Mg PO BID Zoloft (Sertraline Hcl) 25 Mg Tablet 75 Mg PO DAILY Seroquel (Quetiapine Fumarate) 200 Mg Tablet 200 Mg PO HS Ipratropium [place] 0.2 Mg/1 Ml Solution 1 Vial NEB QID Benzonatate 100 Mg Capsule 100 Mg PO TID Cepacol Sore Throat Lozenge (Benzocaine/Menthol) 1 Each Lozenge 1 Each MM PRN Q2HR PRN Mag-Al Plus Xs Suspension (Mag Hydrox/Al Hydrox/Simeth) 30 Ml Oral.susp 15 Ml PO PRN AFTMEALHC PRN Lactulose 10 Gm/15 Ml Solution 15 Gm PO DAILYWBKFT Zyprexa Zydis (Olanzapine) 5 Mg Tab.rapdis 5 Mg PO PRN Q2HR PRN Analgesic [place] (Methyl Salicylate/Menthol) 28 Gm Oint...g. 1 Juan TP QID PRN Namenda (Memantine Hcl) 10 Mg Tablet 1 Tab PO BIDWMEALS Melatonin 3 Mg Tablet 1 Tab PO QHS Culturelle (Lactobacillus Rhamnosus Gg) 1 Each Capsule 1 Each PO BID Glucophage Xr (Metformin Hcl) 500 Mg Tab.er.24h 2 Tab PO DAILYWBKFT Nystatin 15 Gm Powder 1 Juan TP BID Milk Of Magnesia (Magnesium Hydroxide) 2,400 Mg/10 Ml Oral.susp 2,400 Mg PO HS PRN Voltaren (Diclofenac Sodium) 100 Gm Gel..gram. 1 Juan TP PRN TID PRN FOR NECK PAIN Vitamin D3 (Cholecalciferol (Vitamin D3)) 50,000 Unit Capsule 50,000 Unit PO WEEKLY Tylenol (Acetaminophen) 325 Mg Tablet 2 Tab PO PRN Q6HRS PRN Pravastatin Sodium 40 Mg Tablet 40 Mg PO DAILY Carbidopa-Levo Er 50-200 Tab (Carbidopa/Levodopa) 1 Each Tablet.er 1 Each PO HS Sinemet 25-100 Mg Tablet (Carbidopa/Levodopa) 1 Each Tablet 0.5 Tab PO Q2HR W/A Diazepam 2 Mg Tablet 2 Mg PO PRN Q6HRS PRN Mirapex (Pramipexole Di-Hcl) 0.25 Mg Tablet 0.5 Mg PO HS Linzess (Linaclotide) 145 Mcg Capsule 145 Mcg PO DAILY Divalproex Sodium 500 Mg Tablet.dr 1,500 Mg PO HS Hydrocortisone 453.6 Gm Cream..g. 1 Juan TP PRN BID PRN Ferrous Sulfate 325 Mg Tablet 650 Mg PO DAILY06 Magnesium Oxide 400 Mg Tablet 400 Mg PO BID Miconazole Nitrate 45 Gm Cream.appl 1 Juan TP PRN BID PRN Aspirin 81 Mg Tab.chew 81 Mg PO DAILY Ibuprofen 400 Mg Tablet 600 Mg PO PRN BID PRN Docusate Sodium 100 Mg Capsule 100 Mg PO BID Fluticasone Propionate Nasal [place] (Fluticasone Propionate) 16 Gm [place].susp 2 [place] NS DAILY Multivitamins (Multivitamin) 1 Each Tablet 1 Tab PO DAILY Trazodone Hcl 50 Mg Tablet 25 Mg PO DAILYWSUP Ascorbic Acid 500 Mg Tablet 500 Mg PO DAILY I have reviewed the current psychotropics carefully including drug interactions. Risk benefit ratio favors no change other than as noted in my dictated progress note. Diagnosis: Problems: (1) Healthcare-associated pneumonia (2) Acute respiratory failure with hypoxia (3) Acute and chronic respiratory failure with hypoxia (4) Anxiety disorder (5) Lewy body dementia with behavioral disturbance (6) Impulse control disorder (7) Personality disorder in adult SAY PRUETT MD Jun 08, 2018 22:06
[2018-06-08] MEDS: ACETAMINOPHEN 325 MG TABLET PO PRN (22:24)
[2018-06-09] MEDS: FERROUS SULFATE 325 MG TABLET. PO SCH (05:40)
[2018-06-09] MEDS: CARBIDOPA/LEVODOPA 25/100MG TABLET PO SCH ×9 (05:40→22:00)
[2018-06-09] MEDS: IPRATROPIUM BROMIDE 0.5 MG/2.5 ML NEBU. NEB SCH ×4 (05:43→20:00)
[2018-06-09 06:26] VITALS: BP 130/85
[2018-06-09] MEDS: RIVASTIGMINE 13.3MG PATCH. TD SCH (07:51)
[2018-06-09] MEDS: ASPIRIN ENTERIC COATED 81 MG TABLET.DR. PO SCH (07:52)
[2018-06-09] MEDS: MEMANTINE 10 MG TABLET. PO SCH ×2 (07:52→16:21)
[2018-06-09] MEDS: LINACLOTIDE 145 MCG CAPSULE. PO SCH (07:52)
[2018-06-09] MEDS: LACTULOSE 20 GM/30 ML SOLUTION. PO SCH (07:52)
[2018-06-09] MEDS: PRAVASTATIN 20 MG TABLET. PO SCH (07:52)
[2018-06-09] MEDS: DOCUSATE SODIUM 100 MG CAPSULE PO SCH ×2 (07:52→20:04)
[2018-06-09] MEDS: metFORMIN XR 500 MG TAB.ER.24H PO SCH (07:53)
[2018-06-09] MEDS: LACTOBACILLUS RHAMNOSUS GG 1 CAPSULE. PO SCH ×2 (07:53→20:02)
[2018-06-09] MEDS: MULTIVITAMIN with MINERAL TABLET. PO SCH (07:53)
[2018-06-09] MEDS: ASCORBIC ACID 500 MG TABLET PO SCH (07:53)
[2018-06-09] MEDS: MAGNESIUM OXIDE 400 MG TABLET PO SCH ×2 (07:53→20:04)
[2018-06-09] MEDS: NYSTATIN TOPICAL POWDER 15GM BOTTLE. TP SCH ×2 (07:54→22:15)
--- NOTE | 2018-06-09 14:49 | PN ---
DATE: 06/07/2018 This is a late entry 06/07/2018 covers elements not covered in my initial note. SUBJECTIVE: I met with the patient in the evening. The patient slept 1-1/2 hours previous night, dozed off and on during the day, but otherwise compliant. REVIEW OF SYSTEMS: Ambulation impaired, in wheelchair. No CV, , pulmonary, eye, ENT system symptoms on review. MENTAL STATUS EXAM: Oriented to himself and situation. Speech has some latency, coherent. Abstraction is fair, computation impaired, language function intact, attention span short. Mood and affect overall less labile, less anxious, less psychotic. LABORATORY DATA: Reviewed. IMPRESSION: Bipolar 1 disorder, mixed possible Lewy body dementia with delusion, depression. Rest unchanged; anxiety disorder, unspecified; impulse control disorder, unspecified. PLAN: I had got a call from the [facility] social group worker indicating wondered whether the patient has severe stage for dementia. The patient is reasonably oriented. Does have short-term memory deficits, but I will defer to Dr. Flanagan who was done psychological testing on the patient for this specific determination as the is wanting this for her records. Plan, no change from initial note. MAN Rosa PRUETT MD DR: MARCEL/nano JOB#: [id number] / [id number]
--- NOTE | 2018-06-09 14:54 | PN ---
DATE: 06/08/2018 PSYCHIATRIC PROGRESS NOTE This late entry 06/08/2018 covers elements not covered in my initial note. SUBJECTIVE: I met with the patient in the evening. The patient has been pleasant, refused his Risperdal previous night as he states this makes him more rigid and he denied psychotic symptoms. I addressed this at length with him and we will go ahead and stop it on a trial basis. We will also ask Dr. Daugherty to reassess his Sinemet. REVIEW OF SYSTEMS: Ambulation impaired, in wheelchair. No CV, , pulmonary, eye, ENT system symptoms on review other than symptoms of Parkinson's. MENTAL STATUS EXAM: Reasonably oriented to place and situation. Speech has some latency, coherent. Abstraction fair, computation impaired, language function intact, attention span short. Mood and affect remain somewhat less labile, less anxious, still has some pressured speech, but much improved. LABORATORY DATA: Reviewed. IMPRESSION: Bipolar 1 disorder, unspecified dementia, possibly Lewy body with delusions, in partial remission. Rest unchanged; anxiety disorder, unspecified. PLAN: No change from initial note and I have indicated on Risperdal as above. MAN Rosa PRUETT MD DR: MARCEL/nano JOB#: [id number] / [id number]
[2018-06-09 16:18] VITALS: BP 129/85
[2018-06-09] MEDS ORDERED: risperiDONE 0.25 MG TABLET. PO PRN (18:15)
[2018-06-09] MEDS: PRAMIPEXOLE 0.5 MG TABLET. PO SCH (20:02)
[2018-06-09] MEDS: CARBIDOPA/LEVODOPA CR 50/200MG TABLET.SA PO SCH (20:02)
[2018-06-09] MEDS: QUEtiapine 100 MG TABLET. PO SCH (20:03)
[2018-06-09] MEDS: SERTRALINE 25 MG TABLET. PO SCH (20:04)
[2018-06-09] MEDS: DIVALPROEX ER 500 MG TAB.ER.24H PO SCH (20:04)
[2018-06-09] MEDS: traZODone 100 MG TABLET. PO SCH (20:04)
[2018-06-09] MEDS: MELATONIN 3 MG TABLET PO SCH (20:04)
[2018-06-09] MEDS: FLUTICASONE 50MCG/NASAL SPRAY 16GM BOTTLE. NS SCH (20:06)
[2018-06-09] MEDS: ALPRAZolam 0.5 MG TABLET PO PRN (22:13)
[2018-06-09] MEDS: IBUPROFEN 600 MG TABLET. PO PRN (22:14)
--- NOTE | 2018-06-09 22:53 | PDOC ---
Exam Note: Сергей Note: Please also refer to the separate dictated note~for this date of service dictated separately.~Patient seen individually. Discussed the patient with Nursing staff reviewed the chart.~Reviewed interim history and current functioning. Reviewed vital signs,~Labs/ Radiology~and current medications noted below. Continue current treatment with the changes noted in the dictated addendum note Assessment: Vital Signs: Vital Signs Date Time Temp Pulse Resp B/P (MAP) Pulse Ox O2 Delivery O2 Flow Rate FiO2 06/09/18 16:18 98.6 62 20 129/85 (100) 92 06/09/18 06:26 Room Air I&O Intake and Output 06/09/18 07:01 Intake Total 960 ml Balance 960 ml Intake Oral 960 ml # Bowel Movements 4 Current Medications: Meds: Current Medications Acetaminophen (Tylenol) 650 mg PRN Q6HRS PRN PO PAIN / TEMP Last administered on 06/08/18at 22:24; Start 05/10/18 at 17:45 Albuterol Sulfate (Ventolin) 2.5 mg PRN Q4HRS PRN NEB COUGH; Start 05/10/18 at 17:45 Ascorbic Acid (Vitamin C) 500 mg DAILY PO Last administered on 06/09/18at 07:53 ; Start 05/11/18 at 09:00 Throat Lozenges (Cepacol Sore Throat Lozenge) 1 osito PRN Q2HR PRN MM COUGH Last administered on 05/22/18at 20:01; Start 05/10/18 at 17:45 Carbidopa/Levodopa (Sinemet 25/100) 0.5 tab Q2HR W/A PO Last administered on 06/09/18at 17:18; Start 05/10/18 at 18:00 Vitamin D (Vitamin D3) 50,000 unit WEEKLY PO Last administered on 06/07/18at 08 :30; Start 05/17/18 at 09:00 Diclofenac Sodium (Voltaren) 1 juan PRN TID PRN TP MUSCLE PAIN; Start 05/10/18 at 17:45 Ferrous Sulfate (Feosol) 650 mg DAILY06 PO Last administered on 06/09/18at 05: 40; Start 05/11/18 at 06:00 Guaifenesin (Mucinex Er) 600 mg BID PO Last administered on 05/21/18at 08:09; Start 05/10/18 at 21:00; Stop 05/21/18 at 15:53; Status DC Ibuprofen (Motrin) 600 mg PRN BID PRN PO INFLAMMATION PAIN Last administered on 06/09/18at 22:14; Start 05/10/18 at 17:45 Ipratropium [place] (Atrovent) 0.5 mg RTQID NEB Last administered on at 20:20; Start 05/10/18 at 20:00 Linaclotide (Linzess) 145 mcg DAILY PO Last administered on 06/09/18 07:52; Start 05/11/18 at 09:00 Al Hydroxide/Mg Hydroxide (Mylanta Plus Xs) 15 ml PRN AFTMEALHC PRN PO DYSPEPSIA; Start 05/10/18 at 17:45 Multi-Ingredient Ointment (Analgesic [place]) 1 juan QID PRN TP MUSCLE PAIN; Start 05/10/18 at 17:45 Nystatin (Nystop) 1 juan BID TP Last administered on 06/09/18at 22:15; Start at 21:00 Olanzapine (ZyPREXA ZYDIS) 5 mg PRN Q2HR PRN PO ANXIETY / AGITATION Last administered on 05/13/18at 23:10; Start 05/10/18 at 17:45 Amoxicillin/ Clavulanate Potassium (Augmentin 875/ 125mg) 1 tab BID PO Last administered on 05/21/18at 08:07; Start 05/10/18 at 21:00; Stop 05/21/18 at 15: 52; Status DC Aspirin (Aspirin Enteric Coated) 81 mg DAILYWBKFT PO Last administered on 06/09at 07:52; Start 05/11/18 at 08:00 Benzonatate (Tessalon Perle) 100 mg [id number] PO Last administered on 05/17/18at 14:04; Start 05/10/18 at 21:00; Stop 05/17/18 at 14:52; Status DC Carbidopa/Levodopa (Sinemet Cr) 1 tab.sa QHS PO Last administered on 20:02; Start 05/10/18 at 21:00 Diazepam (Valium) 2 mg PRN Q6HRS PRN PO ANXIETY / AGITATION Last administered on 05/11/18at 08:41; Start 05/10/18 at 18:00; Stop 05/11/18 at 18:16; Status DC Divalproex Sodium (Depakote) 1,500 mg QHS PO Last administered on 05/28/18at 20 :23; Start 05/10/18 at 21:00; Stop 05/29/18 at 15:31; Status DC Docusate Sodium (Colace) 100 mg BID PO Last administered on 06/09/18at 20:04; Start 05/10/18 at 21:00 Fluticasone Propionate (Flonase) 2 spray DAILY NS Last administered on at 08:07; Start 05/11/18 at 09:00; Stop 05/31/18 at 17:36; Status DC Hydrocortisone (Cortaid) 1 juan PRN BID PRN TP RASH; Start 05/10/18 at 19:15 Lactobacillus Rhamnosus (Culturelle) 1 cap BID PO Last administered on at 20:02; Start 05/10/18 at 21:00 Lactulose (Lactulose) 15 gm DAILYWBKFT PO Last administered on 06/09/18at 07:52 ; Start 05/11/18 at 08:00 Magnesium Hydroxide (Milk Of Magnesia) 2,400 mg PRN QHS PRN PO CONSTIPATION; Start 05/10/18 at 18:30 Magnesium Oxide (Magnesium Oxide) 400 mg BID PO Last administered on at 20:04; Start 05/10/18 at 21:00 Melatonin 3 mg QHS PO Last administered on 06/09/18at 20:04; Start 05/10/18 at 21:00 Memantine (Namenda) 10 mg BIDWMEALS PO Last administered on 06/09/18at 16:21; Start 05/10/18 at 18:30 Metformin HCl (Glucophage Xr) 1,000 mg DAILYWBKFT PO Last administered on 06/09at 07:53; Start 05/11/18 at 08:00 Miconazole Nitrate (Monistat-Derm) 1 juan PRN BID PRN TP RASH; Start 05/10/18 at 21:00 Multivitamins/ Calcium (Thera-M Plus) 1 tab DAILY PO Last administered on 06/09at 07:53; Start 05/11/18 at 09:00 Pramipexole Dihydrochloride (miraPEX) 0.5 mg QHS PO Last administered on at 20:02; Start 05/10/18 at 21:00 Pravastatin Sodium (Pravachol) 40 mg DAILY PO Last administered on 06/09/18at 07:52; Start 05/11/18 at 09:00 Quetiapine Fumarate (SEROquel) 200 mg QHS PO Last administered on 05/27/18at 19 :27; Start 05/10/18 at 21:00; Stop 05/28/18 at 16:22; Status DC Rivastigmine (Exelon) 1 patch DAILY TD Last administered on 05/15/18at 08:04; Start 05/11/18 at 09:00; Stop 05/15/18 at 12:34; Status DC Sertraline HCl (Zoloft) 75 mg DAILY PO Last administered on 05/30/18at 07:30; Start 05/11/18 at 09:00; Stop 05/30/18 at 19:05; Status DC Trazodone HCl (Desyrel) 25 mg DAILYWSUP PO Last administered on 05/21/18at 15:55 ; Start 05/10/18 at 18:30; Stop 05/21/18 at 16:34; Status DC Trazodone HCl (Desyrel) 100 mg PRN QHS PRN PO INSOMNIA Last administered on 05/19/18at 23:02; Start 05/10/18 at 18:00; Stop 05/21/18 at 16:34; Status DC Trazodone HCl (Desyrel) 150 mg QHS PO Last administered on 05/20/18at 19:47; Start 05/10/18 at 21:00; Stop 05/21/18 at 16:34; Status DC Acetaminophen (Tylenol) 650 mg PRN Q6HRS PRN PO PAIN / TEMP; Start 05/10/18 at 18:15; Status UNV Multi-Ingredient Ointment (Analgesic [place]) 1 juan PRN QID PRN TP MUSCLE PAIN; Start 05/10/18 at 18:15; Status UNV Al Hydroxide/Mg Hydroxide (Mylanta Plus Xs) 15 ml PRN AFTMEALHC PRN PO DYSPEPSIA; Start 05/10/18 at 18:15; Status UNV Magnesium Hydroxide (Milk Of Magnesia) 2,400 mg PRN QHS PRN PO CONSTIPATION; Start 05/10/18 at 18:15; Status UNV Alprazolam (Xanax) 0.5 mg PRN Q6HRS PRN PO ANXIETY / AGITATION Last administered on 06/09/18 22:13; Start 05/11/18 at 18:15 Rivastigmine (Exelon 13.3mg) 1 patch DAILY TD Last administered on 06/09/18 07:51; Start 05/16/18 at 09:00 Risperidone (RisperDAL) 0.5 mg HS PO Last administered on 06/06/18 20:42; Start 05/17/18 at 21:00; Stop 06/08/18 at 03:29; Status DC Trazodone HCl (Desyrel) 200 mg PRN QHS PRN PO INSOMNIA Last administered on 01:00; Start 05/21/18 at 21:00 Trazodone HCl (Desyrel) 200 mg QHS PO Last administered on 06/09/18at 20:04; Start 05/21/18 at 21:00 Quetiapine Fumarate (SEROquel) 150 mg QHS PO Last administered on 06/09/18 20 :03; Start 05/28/18 at 21:00 Divalproex Sodium (Depakote Er) 1,500 mg QHS PO Last administered on 20:04; Start 05/29/18 at 21:00 Sertraline HCl (Zoloft) 75 mg QHS PO Last administered on 06/09/18 20:04; Start 05/31/18 at 21:00 Fluticasone Propionate (Flonase) 2 spray QHS NS Last administered on 20:06; Start 05/31/18 at 21:00 Risperidone (RisperDAL) 0.5 mg HS SL Last administered on 06/08/18at 19:22; Start 06/08/18 at 21:00; Stop 06/08/18 at 21:00; Status DC Risperidone (RisperDAL) 0.5 mg PRN QID PRN PO PSYCHOSIS/AGITATION; Start 06/09 at 18:15 Active Scripts Active Reported Neomycin Sulfate 500 Mg Tablet 1 Juan PO DAILY Augmentin 875-125 Tablet (Amoxicillin/Potassium Clav) 1 Each Tablet 1 Each PO BID 5 Days Albuterol Sulfate Neb Soln (Albuterol Sulfate) 2.5 Mg/3 Ml Vial.neb 2.5 Mg PRN Q4HRS PRN EXELON 9.5mg/24hr (Rivastigmine) 1 Each Patch.td24 1 Patch TD DAILY Trazodone Hcl 150 Mg Tablet 150 Mg PO HS Trazodone Hcl 100 Mg Tablet 100 Mg PO PRN QHS PRN Guaifenesin 600 Mg Tablet.er 600 Mg PO BID Zoloft (Sertraline Hcl) 25 Mg Tablet 75 Mg PO DAILY Seroquel (Quetiapine Fumarate) 200 Mg Tablet 200 Mg PO HS Ipratropium [place] 0.2 Mg/1 Ml Solution 1 Vial NEB QID Benzonatate 100 Mg Capsule 100 Mg PO TID Cepacol Sore Throat Lozenge (Benzocaine/Menthol) 1 Each Lozenge 1 Each MM PRN Q2HR PRN Mag-Al Plus Xs Suspension (Mag Hydrox/Al Hydrox/Simeth) 30 Ml Oral.susp 15 Ml PO PRN AFTMEALHC PRN Lactulose 10 Gm/15 Ml Solution 15 Gm PO DAILYWBKFT Zyprexa Zydis (Olanzapine) 5 Mg Tab.rapdis 5 Mg PO PRN Q2HR PRN Analgesic [place] (Methyl Salicylate/Menthol) 28 Gm Oint...g. 1 Juan TP QID PRN Namenda (Memantine Hcl) 10 Mg Tablet 1 Tab PO BIDWMEALS Melatonin 3 Mg Tablet 1 Tab PO QHS Culturelle (Lactobacillus Rhamnosus Gg) 1 Each Capsule 1 Each PO BID Glucophage Xr (Metformin Hcl) 500 Mg Tab.er.24h 2 Tab PO DAILYWBKFT Nystatin 15 Gm Powder 1 Juan TP BID Milk Of Magnesia (Magnesium Hydroxide) 2,400 Mg/10 Ml Oral.susp 2,400 Mg PO HS PRN Voltaren (Diclofenac Sodium) 100 Gm Gel..gram. 1 Juan TP PRN TID PRN FOR NECK PAIN Vitamin D3 (Cholecalciferol (Vitamin D3)) 50,000 Unit Capsule 50,000 Unit PO WEEKLY Tylenol (Acetaminophen) 325 Mg Tablet 2 Tab PO PRN Q6HRS PRN Pravastatin Sodium 40 Mg Tablet 40 Mg PO DAILY Carbidopa-Levo Er 50-200 Tab (Carbidopa/Levodopa) 1 Each Tablet.er 1 Each PO HS Sinemet 25-100 Mg Tablet (Carbidopa/Levodopa) 1 Each Tablet 0.5 Tab PO Q2HR W/A Diazepam 2 Mg Tablet 2 Mg PO PRN Q6HRS PRN Mirapex (Pramipexole Di-Hcl) 0.25 Mg Tablet 0.5 Mg PO HS Linzess (Linaclotide) 145 Mcg Capsule 145 Mcg PO DAILY Divalproex Sodium 500 Mg Tablet.dr 1,500 Mg PO HS Hydrocortisone 453.6 Gm Cream..g. 1 Juan TP PRN BID PRN Ferrous Sulfate 325 Mg Tablet 650 Mg PO DAILY06 Magnesium Oxide 400 Mg Tablet 400 Mg PO BID Miconazole Nitrate 45 Gm Cream.appl 1 Juan TP PRN BID PRN Aspirin 81 Mg Tab.chew 81 Mg PO DAILY Ibuprofen 400 Mg Tablet 600 Mg PO PRN BID PRN Docusate Sodium 100 Mg Capsule 100 Mg PO BID Fluticasone Propionate Nasal [place] (Fluticasone Propionate) 16 Gm [place].susp 2 [place] NS DAILY Multivitamins (Multivitamin) 1 Each Tablet 1 Tab PO DAILY Trazodone Hcl 50 Mg Tablet 25 Mg PO DAILYWSUP Ascorbic Acid 500 Mg Tablet 500 Mg PO DAILY I have reviewed the current psychotropics carefully including drug interactions. Risk benefit ratio favors no change other than as noted in my dictated progress note. Diagnosis: Problems: (1) Healthcare-associated pneumonia (2) Acute respiratory failure with hypoxia (3) Acute and chronic respiratory failure with hypoxia (4) Anxiety disorder (5) Lewy body dementia with behavioral disturbance (6) Impulse control disorder (7) Personality disorder in adult SAY PRUETT MD Jun 09, 2018 22:53
[2018-06-10] MEDS ORDERED: ALPR0.5T PO (03:23)
[2018-06-10] MEDS ORDERED: RIVA1PAT5 TD (03:25)
[2018-06-10] MEDS: FERROUS SULFATE 325 MG TABLET. PO SCH (03:56)
[2018-06-10] MEDS: CARBIDOPA/LEVODOPA 25/100MG TABLET PO SCH ×4 (03:58→12:00)
[2018-06-10] MEDS: IPRATROPIUM BROMIDE 0.5 MG/2.5 ML NEBU. NEB SCH ×2 (05:45→11:31)
[2018-06-10 06:29] VITALS: BP 108/75
[2018-06-10] MEDS: ASPIRIN ENTERIC COATED 81 MG TABLET.DR. PO SCH (07:43)
[2018-06-10] MEDS: RIVASTIGMINE 13.3MG PATCH. TD SCH (07:43)
[2018-06-10] MEDS: LACTULOSE 20 GM/30 ML SOLUTION. PO SCH (07:43)
[2018-06-10] MEDS: ASCORBIC ACID 500 MG TABLET PO SCH (07:43)
[2018-06-10] MEDS: MAGNESIUM OXIDE 400 MG TABLET PO SCH (07:44)
[2018-06-10] MEDS: MULTIVITAMIN with MINERAL TABLET. PO SCH (07:44)
[2018-06-10] MEDS: MEMANTINE 10 MG TABLET. PO SCH (07:44)
[2018-06-10] MEDS: PRAVASTATIN 20 MG TABLET. PO SCH (07:44)
[2018-06-10] MEDS: DOCUSATE SODIUM 100 MG CAPSULE PO SCH (07:44)
[2018-06-10] MEDS: metFORMIN XR 500 MG TAB.ER.24H PO SCH (07:44)
[2018-06-10] MEDS: LACTOBACILLUS RHAMNOSUS GG 1 CAPSULE. PO SCH (07:44)
[2018-06-10] MEDS: NYSTATIN TOPICAL POWDER 15GM BOTTLE. TP SCH (07:45)
[2018-06-10] MEDS: LINACLOTIDE 145 MCG CAPSULE. PO SCH (07:46)
--- NOTE | 2018-06-10 14:10 | PDOC ---
Exam Note: Сергей Note: Please also refer to the separate dictated note~for this date of service dictated separately.~Patient seen individually. Discussed the patient with Nursing staff reviewed the chart.~Reviewed interim history and current functioning. Reviewed vital signs,~Labs/ Radiology~and current medications noted below. Continue current treatment with the changes noted in the dictated addendum note Assessment: Vital Signs: Vital Signs Date Time Temp Pulse Resp B/P (MAP) Pulse Ox O2 Delivery O2 Flow Rate FiO2 06/10/18 11:31 96 Room Air 06/10/18 06:29 96.9 57 20 108/75 (86) I&O Intake and Output 06/10/18 07:01 Intake Total 1320 ml Balance 1320 ml Intake Oral 1320 ml # Bowel Movements 1 Current Medications: Meds: Current Medications Acetaminophen (Tylenol) 650 mg PRN Q6HRS PRN PO PAIN / TEMP Last administered on 06/08/18at 22:24; Start 05/10/18 at 17:45 Albuterol Sulfate (Ventolin) 2.5 mg PRN Q4HRS PRN NEB COUGH; Start 05/10/18 at 17:45 Ascorbic Acid (Vitamin C) 500 mg DAILY PO Last administered on 06/10/18at 07:43 ; Start 05/11/18 at 09:00 Throat Lozenges (Cepacol Sore Throat Lozenge) 1 osito PRN Q2HR PRN MM COUGH Last administered on 05/22/18at 20:01; Start 05/10/18 at 17:45 Carbidopa/Levodopa (Sinemet 25/100) 0.5 tab Q2HR W/A PO Last administered on 06/10/18at 12:00; Start 05/10/18 at 18:00 Vitamin D (Vitamin D3) 50,000 unit WEEKLY PO Last administered on 06/07/18at 08 :30; Start 05/17/18 at 09:00 Diclofenac Sodium (Voltaren) 1 juan PRN TID PRN TP MUSCLE PAIN; Start 05/10/18 at 17:45 Ferrous Sulfate (Feosol) 650 mg DAILY06 PO Last administered on 06/10/18at 03: 56; Start 05/11/18 at 06:00 Guaifenesin (Mucinex Er) 600 mg BID PO Last administered on 05/21/18at 08:09; Start 05/10/18 at 21:00; Stop 05/21/18 at 15:53; Status DC Ibuprofen (Motrin) 600 mg PRN BID PRN PO INFLAMMATION PAIN Last administered on 06/09/18 22:14; Start 05/10/18 at 17:45 Ipratropium [place] (Atrovent) 0.5 mg RTQID NEB Last administered on 11:31; Start 05/10/18 at 20:00 Linaclotide (Linzess) 145 mcg DAILY PO Last administered on 06/10/18 07:46; Start 05/11/18 at 09:00 Al Hydroxide/Mg Hydroxide (Mylanta Plus Xs) 15 ml PRN AFTMEALHC PRN PO DYSPEPSIA; Start 05/10/18 at 17:45 Multi-Ingredient Ointment (Analgesic [place]) 1 juan QID PRN TP MUSCLE PAIN; Start 05/10/18 at 17:45 Nystatin (Nystop) 1 juan BID TP Last administered on 06/10/18at 07:45; Start at 21:00 Olanzapine (ZyPREXA ZYDIS) 5 mg PRN Q2HR PRN PO ANXIETY / AGITATION Last administered on 05/13/18at 23:10; Start 05/10/18 at 17:45 Amoxicillin/ Clavulanate Potassium (Augmentin 875/ 125mg) 1 tab BID PO Last administered on 05/21/18 08:07; Start 05/10/18 at 21:00; Stop 05/21/18 at 15: 52; Status DC Aspirin (Aspirin Enteric Coated) 81 mg DAILYWBKFT PO Last administered on 06/10at 07:43; Start 05/11/18 at 08:00 Benzonatate (Tessalon Perle) 100 mg [id number] PO Last administered on 05/17/18at 14:04; Start 05/10/18 at 21:00; Stop 05/17/18 at 14:52; Status DC Carbidopa/Levodopa (Sinemet Cr) 1 tab.sa QHS PO Last administered on 20:02; Start 05/10/18 at 21:00 Diazepam (Valium) 2 mg PRN Q6HRS PRN PO ANXIETY / AGITATION Last administered on 05/11/18at 08:41; Start 05/10/18 at 18:00; Stop 05/11/18 at 18:16; Status DC Divalproex Sodium (Depakote) 1,500 mg QHS PO Last administered on 05/28/18at 20 :23; Start 05/10/18 at 21:00; Stop 05/29/18 at 15:31; Status DC Docusate Sodium (Colace) 100 mg BID PO Last administered on 06/10/18at 07:44; Start 05/10/18 at 21:00 Fluticasone Propionate (Flonase) 2 spray DAILY NS Last administered on at 08:07; Start 05/11/18 at 09:00; Stop 05/31/18 at 17:36; Status DC Hydrocortisone (Cortaid) 1 juan PRN BID PRN TP RASH; Start 05/10/18 at 19:15 Lactobacillus Rhamnosus (Culturelle) 1 cap BID PO Last administered on at 07:44; Start 05/10/18 at 21:00 Lactulose (Lactulose) 15 gm DAILYWBKFT PO Last administered on 06/10/18at 07:43 ; Start 05/11/18 at 08:00 Magnesium Hydroxide (Milk Of Magnesia) 2,400 mg PRN QHS PRN PO CONSTIPATION; Start 05/10/18 at 18:30 Magnesium Oxide (Magnesium Oxide) 400 mg BID PO Last administered on at 07:44; Start 05/10/18 at 21:00 Melatonin 3 mg QHS PO Last administered on 06/09/18at 20:04; Start 05/10/18 at 21:00 Memantine (Namenda) 10 mg BIDWMEALS PO Last administered on 06/10/18at 07:44; Start 05/10/18 at 18:30 Metformin HCl (Glucophage Xr) 1,000 mg DAILYWBKFT PO Last administered on 06/10at 07:44; Start 05/11/18 at 08:00 Miconazole Nitrate (Monistat-Derm) 1 juan PRN BID PRN TP RASH; Start 05/10/18 at 21:00 Multivitamins/ Calcium (Thera-M Plus) 1 tab DAILY PO Last administered on 06/10at 07:44; Start 05/11/18 at 09:00 Pramipexole Dihydrochloride (miraPEX) 0.5 mg QHS PO Last administered on at 20:02; Start 05/10/18 at 21:00 Pravastatin Sodium (Pravachol) 40 mg DAILY PO Last administered on 06/10/18at 07:44; Start 05/11/18 at 09:00 Quetiapine Fumarate (SEROquel) 200 mg QHS PO Last administered on 05/27/18at 19 :27; Start 05/10/18 at 21:00; Stop 05/28/18 at 16:22; Status DC Rivastigmine (Exelon) 1 patch DAILY TD Last administered on 05/15/18at 08:04; Start 05/11/18 at 09:00; Stop 05/15/18 at 12:34; Status DC Sertraline HCl (Zoloft) 75 mg DAILY PO Last administered on 05/30/18at 07:30; Start 05/11/18 at 09:00; Stop 05/30/18 at 19:05; Status DC Trazodone HCl (Desyrel) 25 mg DAILYWSUP PO Last administered on 05/21/18at 15:55 ; Start 05/10/18 at 18:30; Stop 05/21/18 at 16:34; Status DC Trazodone HCl (Desyrel) 100 mg PRN QHS PRN PO INSOMNIA Last administered on 05/19/18at 23:02; Start 05/10/18 at 18:00; Stop 05/21/18 at 16:34; Status DC Trazodone HCl (Desyrel) 150 mg QHS PO Last administered on 05/20/18at 19:47; Start 05/10/18 at 21:00; Stop 05/21/18 at 16:34; Status DC Acetaminophen (Tylenol) 650 mg PRN Q6HRS PRN PO PAIN / TEMP; Start 05/10/18 at 18:15; Status UNV Multi-Ingredient Ointment (Analgesic [place]) 1 juan PRN QID PRN TP MUSCLE PAIN; Start 05/10/18 at 18:15; Status UNV Al Hydroxide/Mg Hydroxide (Mylanta Plus Xs) 15 ml PRN AFTMEALHC PRN PO DYSPEPSIA; Start 05/10/18 at 18:15; Status UNV Magnesium Hydroxide (Milk Of Magnesia) 2,400 mg PRN QHS PRN PO CONSTIPATION; Start 05/10/18 at 18:15; Status UNV Alprazolam (Xanax) 0.5 mg PRN Q6HRS PRN PO ANXIETY / AGITATION Last administered on 06/09/18 22:13; Start 05/11/18 at 18:15 Rivastigmine (Ex[place] 13.3mg) 1 patch DAILY TD Last administered on 06/10/18 07:43; Start 05/16/18 at 09:00 Risperidone (RisperDAL) 0.5 mg HS PO Last administered on 06/06/18 20:42; Start 05/17/18 at 21:00; Stop 06/08/18 at 03:29; Status DC Trazodone HCl (Desyrel) 200 mg PRN QHS PRN PO INSOMNIA Last administered on 01:00; Start 05/21/18 at 21:00 Trazodone HCl (Desyrel) 200 mg QHS PO Last administered on 06/09/18at 20:04; Start 05/21/18 at 21:00 Quetiapine Fumarate (SEROquel) 150 mg QHS PO Last administered on 06/09/18at 20 :03; Start 05/28/18 at 21:00 Divalproex Sodium (Depakote Er) 1,500 mg QHS PO Last administered on 20:04; Start 05/29/18 at 21:00 Sertraline HCl (Zoloft) 75 mg QHS PO Last administered on 06/09/18at 20:04; Start 05/31/18 at 21:00 Fluticasone Propionate (Flonase) 2 spray QHS NS Last administered on 20:06; Start 05/31/18 at 21:00 Risperidone (RisperDAL) 0.5 mg HS SL Last administered on 06/08/18at 19:22; Start 06/08/18 at 21:00; Stop 06/08/18 at 21:00; Status DC Risperidone (RisperDAL) 0.5 mg PRN QID PRN PO PSYCHOSIS/AGITATION; Start 06/09 at 18:15 Active Scripts Active Reported EXELON 13.3mg/24hr (Rivastigmine) 1 Each Patch.td24 1 Patch TD DAILY Xanax (Alprazolam) 0.5 Mg Tablet 0.5 Mg PO PRN Q6HRS PRN Albuterol Sulfate Neb Soln (Albuterol Sulfate) 2.5 Mg/3 Ml Vial.neb 2.5 Mg PRN Q4HRS PRN Trazodone Hcl 150 Mg Tablet 200 Mg PO HS Trazodone Hcl 100 Mg Tablet 200 Mg PO PRN QHS PRN Zoloft (Sertraline Hcl) 25 Mg Tablet 75 Mg PO DAILY Seroquel (Quetiapine Fumarate) 200 Mg Tablet 150 Mg PO HS Ipratropium [place] 0.2 Mg/1 Ml Solution 1 Vial NEB QID Cepacol Sore Throat Lozenge (Benzocaine/Menthol) 1 Each Lozenge 1 Each MM PRN Q2HR PRN Mag-Al Plus Xs Suspension (Mag Hydrox/Al Hydrox/Simeth) 30 Ml Oral.susp 15 Ml PO PRN AFTMEALHC PRN Lactulose 10 Gm/15 Ml Solution 15 Gm PO DAILYWBKFT Zyprexa Zydis (Olanzapine) 5 Mg Tab.rapdis 5 Mg PO PRN Q2HR PRN Analgesic [place] (Methyl Salicylate/Menthol) 28 Gm Oint...g. 1 Juan TP QID PRN Namenda (Memantine Hcl) 10 Mg Tablet 10 Mg PO BIDWMEALS Melatonin 3 Mg Tablet 3 Mg PO QHS Culturelle (Lactobacillus Rhamnosus Gg) 1 Each Capsule 1 Each PO BID Glucophage Xr (Metformin Hcl) 500 Mg Tab.er.24h 1,000 Mg PO DAILYWBKFT Nystatin 15 Gm Powder 1 Juan TP BID Milk Of Magnesia (Magnesium Hydroxide) 2,400 Mg/10 Ml Oral.susp 2,400 Mg PO HS PRN Voltaren (Diclofenac Sodium) 100 Gm Gel..gram. 1 Juan TP PRN TID PRN FOR NECK PAIN Vitamin D3 (Cholecalciferol (Vitamin D3)) 50,000 Unit Capsule 50,000 Unit PO WEEKLY Tylenol (Acetaminophen) 325 Mg Tablet 2 Tab PO PRN Q6HRS PRN Pravastatin Sodium 40 Mg Tablet 40 Mg PO DAILY Carbidopa-Levo Er 50-200 Tab (Carbidopa/Levodopa) 1 Each Tablet.er 1 Each PO HS Sinemet 25-100 Mg Tablet (Carbidopa/Levodopa) 1 Each Tablet 0.5 Tab PO Q2HR W/A Mirapex (Pramipexole Di-Hcl) 0.25 Mg Tablet 0.5 Mg PO HS Linzess (Linaclotide) 145 Mcg Capsule 145 Mcg PO DAILY Divalproex Sodium 500 Mg Tablet.dr 1,500 Mg PO HS Hydrocortisone 453.6 Gm Cream..g. 1 Juan TP PRN BID PRN Ferrous Sulfate 325 Mg Tablet 650 Mg PO DAILY06 Magnesium Oxide 400 Mg Tablet 400 Mg PO BID Miconazole Nitrate 45 Gm Cream.appl 1 Juan TP PRN BID PRN Aspirin 81 Mg Tab.chew 81 Mg PO DAILY Ibuprofen 400 Mg Tablet 600 Mg PO PRN BID PRN Docusate Sodium 100 Mg Capsule 100 Mg PO BID Fluticasone Propionate Nasal [place] (Fluticasone Propionate) 16 Gm [place].susp 2 [place] NS DAILY Multivitamins (Multivitamin) 1 Each Tablet 1 Tab PO DAILY Ascorbic Acid 500 Mg Tablet 500 Mg PO DAILY I have reviewed the current psychotropics carefully including drug interactions. Risk benefit ratio favors no change other than as noted in my dictated progress note. Diagnosis: Problems: (1) Personality disorder in adult (2) Impulse control disorder (3) Lewy body dementia with behavioral disturbance (4) Anxiety disorder (5) Acute and chronic respiratory failure with hypoxia (6) Acute respiratory failure with hypoxia SAY PRUETT MD Jun 10, 2018 14:10
--- NOTE | 2018-06-11 18:00 | PN ---
DATE: 06/09/2018 PSYCHIATRIC PROGRESS NOTE This late entry 06/09/2018 covers elements not covered in my initial note. SUBJECTIVE: I met with the patient in the evening. The patient slept 4-1/4 hours previous night. He states he has done much better since the scheduled Risperdal was discontinued at night and his Parkinson's symptoms are better and his mood has remained stable. He denies suicidal ideation. He does request the Risperdal be added p.r.n. and if he feels himself having worsening mood swings at the nursing facility post-discharge and he is getting psychotic/erratic and he will ask for it. Discharge plans to [facility] in [place], [place] on 06/10/2018. REVIEW OF SYSTEMS: Ambulation impaired, in wheelchair. No CV, , pulmonary, eye, ENT system symptoms on review. MENTAL STATUS EXAM: Oriented to himself and situation. Speech has some latency, coherent. Abstraction fair, computation impaired, language function intact, attention span short. Mood and affect, lability is much improved. No clear psychotic symptoms. No suicidal ideation. LABORATORY DATA: Reviewed. IMPRESSION: Bipolar 1 disorder, mixed Lewy body dementia. Rest unchanged including impulse control disorder. PLAN: No change from initial note other than above. MAN Rosa PRUETT MD DR: MARCEL/nano JOB#: [id number] / [id number]
--- NOTE | 2018-06-11 18:44 | DS ---
DATE OF DISCHARGE: 06/10/2018 DISCHARGE SUMMARY/PSYCHIATRIC PROGRESS NOTE This late entry, 06/10/2018, covers elements not covered in my initial note. REASON FOR ADMISSION: Please refer to the admission history for details. Briefly, the patient is a 67-year-old male who was initially referred to us due to failure of outpatient treatment, marked mood lability, agitation and worsening memory deficits. A careful review of his history was reflective of a diagnosis of bipolar disorder and Lewy body dementia with delusion, depression. The patient was stabilized on the unit and then was medically transferred to [address] [place] [address] Rahman for medical stabilization. He has been stabilized, continues to have ongoing mood lability, psychosis, agitation, threats to hurt himself, deemed a potential danger and referred back to us for inpatient psychiatric stabilization. SIGNIFICANT FINDINGS AND CLINICAL COURSE: Following admission, the patient was seen daily individually by myself from a psychiatric standpoint, medical followup with Dr. Rahman. The patient is quite erratic, labile in his mood, trying to throw himself onto the floor, injure himself, tried to strangulate himself while on the unit. He was placed on one on one for an extended period of time because attempts to discontinue this would fail repeatedly. Multiple changes were made in his psychotropics and he ultimately seemed to respond to a combination of Depakote ER 1500 mg at bedtime, Exelon patch 13.3 mg a day, Namenda 10 b.i.d., Zoloft 75 mg a day, Zyprexa p.r.n., trazodone 200 mg at bedtime plus 200 mg at bedtime p.r.n., Xanax p.r.n., Seroquel 150 mg at bedtime. He is also on Risperdal, but seemed to be making his Parkinson's worsened. He was not agreeable to taking it. We discontinue it shortly prior to discharge and kept it p.r.n. in case he developed psychotic symptoms, mood lability. He said he was agreeable to asking for it. He is also on melatonin 3 mg at bedtime, Xanax p.r.n. Gradually mood appeared to improve prior to discharge, no suicidal or homicidal ideation. Much more verbal, appropriate, insightful. MENTAL STATUS EXAM: Prior to discharge, oriented to himself and situation. Speech coherent, still a little pressured, much improved. Abstraction fair, computation impaired, language function intact, attention span short. Mood and affect improved. REVIEW OF SYSTEMS: Ambulation impaired, in a wheelchair. No CV, , pulmonary, eye, ENT system symptoms on review. CONDITION AT DISCHARGE: Improved. FINAL DIAGNOSES: Bipolar 1 disorder, mixed with psychotic features, in partial remission; anxiety disorder, unspecified; impulse control disorder, unspecified; personality disorder, unspecified; dementia, Lewy body, early with delusion, depression. Rest unchanged from admission. DISCHARGE MEDICATIONS: Please refer to the [facility]. Valproic acid level was therapeutic at 68 prior to discharge. Outpatient psychiatric and [facility]up at the [facility]. Time for discharge day management greater than 30 minutes. MAN Rosa PRUETT MD DR: MARCEL/nano JOB#: [id number] / [id number]
== END 2018-06-10 14:30 | DRG 885 ==
LOC: GEROPSY 15:32
PROVIDERS: ADMIT Psychiatry & Neurology Psychiatry; ATTEND Psychiatry & Neurology Psychiatry
DX: F31.64 Bipolar disorder, current episode mixed, severe, with psychotic features (principal); J18.9 Pneumonia, unspecified organism; J96.21 Acute and chronic respiratory failure with hypoxia; F01.51 Vascular dementia, unspecified severity, with behavioral disturbance; F02.81 Dementia in other diseases classified elsewhere, unspecified severity, with behavioral disturbance; E66.9 Obesity, unspecified; E78.5 Hyperlipidemia, unspecified; F09 Unspecified mental disorder due to known physiological condition; F41.0 Panic disorder [episodic paroxysmal anxiety]; F60.9 Personality disorder, unspecified; F63.9 Impulse disorder, unspecified; G31.83 Neurocognitive disorder with Lewy bodies; G47.00 Insomnia, unspecified; G47.33 Obstructive sleep apnea (adult) (pediatric); S01.81XA Laceration without foreign body of other part of head, initial encounter; W07.XXXA Fall from chair, initial encounter; Y95 Nosocomial condition; Z79.899 Other long term (current) drug therapy; Z91.81 History of falling; Y93.89 Activity, other specified; Y92.89 Other specified places as the place of occurrence of the external cause; Y99.8 Other external cause status
CPT/HCPCS: 36415; 73600; 73620; 80053; 80164; 85025; 94640; J7644